=== PATIENT | male | born 1975 | race Caucasian/White ===

== ENCOUNTER 2016-09-13 21:20 | Inpatient (IN) | payer MEDICARE, MEDICAID ==
--- NOTE | 2016-09-13 22:00 | ED ---
General Adult HPI - General Chief complaint: Psychiatric Symptoms Stated complaint: psych eval Time Seen by Provider: 09/13/16 21:40 Source: patient, RN notes reviewed Mode of arrival: ambulatory Limitations: no limitations - History of Present Illness Initial comments: Patient is a pleasant 40-year-old male presenting to the emergency Department with depression and suicidal thoughts. Patient uses heroin and crack cocaine to harm himself. Patient has been doing this for years. Thoughts have worsened lately. Patient is thinking of injecting Lysol into his veins. Patient also regularly eats haenbane berries to harm himself. Last drug ingestion was around 5 hours ago. Patient admits to feeling anxious. Patient does have a history of self-harm and admission in the past. No homicidal thoughts. No hallucinations or delusions. No specific physical complaints. Rare alcohol use. - Related Data Home Medications Medication Instructions Recorded Confirmed Esomeprazole Magnesium [NexIUM 22.3 mg PO DAILY 09/13/16 09/13/16 24Hr] fluPHENAZine DECANOATE [Prolixin 50 mg IM TH 09/13/16 09/13/16 Decanoate] Allergies Allergy/AdvReac Type Severity Reaction Status Date / Time cat dander Allergy Itching Verified 09/13/16 22:05 Review of Systems ROS Statement: Those systems with pertinent positive or pertinent negative responses have been documented in the HPI. ROS Other: All systems not noted in ROS Statement are negative. Constitutional: Denies: fever Eyes: Denies: eye pain ENT: Denies: ear pain Respiratory: Denies: cough Cardiovascular: Denies: chest pain Gastrointestinal: Denies: abdominal pain Genitourinary: Denies: dysuria Musculoskeletal: Denies: back pain Skin: Denies: rash Psychiatric: Reports: anxiety, depression, suicidal thoughts. Denies: auditory hallucinations, visual hallucinations, homicidal thoughts Past Medical History Past Medical History: COPD, GERD/Reflux, Musculoskeletal Disorder Additional Past Medical History / Comment(s): scoliosis, herpes, hiatal hernia History of Any Multi-Drug Resistant Organisms: None Reported Past Surgical History: No Surgical Hx Reported Additional Past Surgical History / Comment(s): EGD about 10 years ago Past Anesthesia/Blood Transfusion Reactions: No Reported Reaction Past Psychological History: Anxiety, Bipolar, Depression, Schizoaffective Disorder Smoking Status: Current every day smoker Past Alcohol Use History: Occasional Past Drug Use History: Cocaine, Heroin, Marijuana - Past Family History Mother History Unknown: Yes Father History Unknown: Yes General Exam Limitations: no limitations General appearance: alert, in no apparent distress Head exam: Present: atraumatic Eye exam: Present: normal appearance, EOMI. Absent: nystagmus Neck exam: Present: normal inspection Respiratory exam: Present: normal lung sounds bilaterally Cardiovascular Exam: Present: regular rate, normal rhythm GI/Abdominal exam: Present: soft. Absent: tenderness Extremities exam: Present: normal inspection Neurological exam: Present: alert. Absent: motor sensory deficit Psychiatric exam: Present: depressed, suicidal ideation Skin exam: Absent: rash Course Vital Signs 09/13/16 21:32 Temperature 98.5 F Pulse Rate 109 H Respiratory 18 Rate Blood Pressure 118/77 O2 Sat by Pulse 97 Oximetry Medical Decision Making - Medical Decision Making Patient was seen by mental health services, who will admit. - Lab Data Lab Results 09/13/16 Range/Units 21:40 Urine Opiates Screen Detected H (NotDetected) Ur Oxycodone Screen Not Detected (NotDetected) Urine Methadone Screen Not Detected (NotDetected) Ur Propoxyphene Screen Not Detected (NotDetected) Ur Barbiturates Screen Not Detected (NotDetected) U Tricyclic Antidepress Not Detected (NotDetected) Ur Phencyclidine Scrn Not Detected (NotDetected) Ur Amphetamines Screen Not Detected (NotDetected) U Methamphetamines Scrn Not Detected (NotDetected) U Benzodiazepines Scrn Not Detected (NotDetected) Urine Cocaine Screen Detected H (NotDetected) U Marijuana (THC) Screen Detected H (NotDetected) Disposition Clinical Impression: Depression, Suicidal ideation Disposition: TRANSFER TO PSYCH HOSP/UNIT
[2016-09-14] MEDS ORDERED: FAMOTIDINE 20 MG TAB PO STA (00:11)
[2016-09-14] MEDS ORDERED: ZIPRASIDONE 20 MG VIAL IM PRN (00:23)
[2016-09-14] MEDS ORDERED: MAGNESIUM HYDROXIDE 2,400 MG/10 ML CUP PO PRN (00:23)
[2016-09-14 01:27] VITALS: BMI 22.4
[2016-09-14] MEDS ORDERED: WATER FOR INJECTION, STERILE 10 ML IV ONE (02:11)
[2016-09-14] MEDS: LORazepam 2 MG/ML SYRINGE IM PRN (08:31)
[2016-09-14] MEDS ORDERED: NICOTINE 14MG/24HR PATCH TRANSDERM SCH (09:00)
[2016-09-14] MEDS ORDERED: PANTOPRAZOLE 40 MG TABLET PO STA (09:57)
--- NOTE | 2016-09-14 10:07 | P.CONS ---
History of Present Illness - Reason for Consult Consult date: 09/14/16 Medical management Requesting physician: Itz Conway - Chief Complaint Depression and suicidal ideation - History of Present Illness This is a 40-year-old male with a known past medical history of schizophrenia, bipolar, anxiety, depression, COPD and GERD. Patient presents to the emergency department with complaints of depression and suicidal thoughts. He does report taking heroin and crack cocaine to harm himself. Patient has had a history of substance abuse for years. ER also reported that he had stated taking of injecting Lysol into his veins and eats haenbane berries to harm himself. Patient also reports having vomiting for a couple of days. Psych nurses have reported there's been no vomiting witnessed. Patient has had regular bowel movements no diarrhea. Denies any fevers chills or sweats. Denies any chest pain or shortness of breath. Denies any difficulty urinating. Patient has had previous psychiatric hospitalizations before. Consulted for medical management. Review of Systems Please refer to HPI otherwise unremarkable Past Medical History Past Medical History: COPD, GERD/Reflux, Musculoskeletal Disorder Additional Past Medical History / Comment(s): scoliosis, herpes, hiatal hernia History of Any Multi-Drug Resistant Organisms: None Reported Past Surgical History: No Surgical Hx Reported Additional Past Surgical History / Comment(s): EGD about 10 years ago Past Anesthesia/Blood Transfusion Reactions: No Reported Reaction Past Psychological History: Anxiety, Bipolar, Depression, Schizoaffective Disorder Smoking Status: Current every day smoker Past Alcohol Use History: Occasional Past Drug Use History: Cocaine, Heroin, Marijuana - Past Family History Mother History Unknown: Yes Father History Unknown: Yes Medications and Allergies Home Medications Medication Instructions Recorded Confirmed Type Esomeprazole Magnesium [NexIUM 22.3 mg PO DAILY 09/13/16 09/14/16 History 24Hr] fluPHENAZine DECANOATE [Prolixin 50 mg IM TH 09/13/16 09/14/16 History Decanoate] Allergies Allergy/AdvReac Type Severity Reaction Status Date / Time cat dander Allergy Itching Verified 09/14/16 00:53 Physical Exam Vitals: Vital Signs Temp Pulse Resp BP 09/14/16 07:12 98.2 F 70 16 118/74 09/14/16 01:09 98.2 F 88 16 118/77 Intake and Output 09/13/16 09/14/1609/14/17 22:59 06:59 14:59 Other: Weight 63.1 kg Head normocephalic Neck supple Lungs clear to auscultation bilaterally no wheezing or crackles Heart regular rate and rhythm S1-S2, no rub or gallop Abdomen is soft epigastric tenderness nondistended positive bowel sounds no hepatosplenomegaly Extremities no edema Neuro alert and orientated to 3 Psychiatric patient is disheveled. Answering questions appropriately. Makes poor eye contact. Assessment and Plan Plan: 1. Depression with suicidal ideation: Patient is been admitted to the psychiatric unit. Continue with psychiatric management and plan of care. Also will check a TSH and free T4 for any underlying thyroid disorder 2. Substance abuse: Patient does admit to using cocaine and heroin. Drug screen was positive for opiates, cocaine and marijuana 3. Nausea and vomiting possibly secondary to the substance abuse. We will add Protonix continue with Maalox as needed. Also will check amylase and lipase and LFTs. Patient did have some mild epigastric discomfort and this could be just related to his vomiting. 4. Nicotine dependence: We will switch nicotine patch to Nicorette gum per patient's request 5. History of COPD stable, no evidence of exacerbation 6. History of schizophrenia, bipolar, anxiety and depression Thank you for this consultation. We'll follow up on lab work. And then follow as needed. Please call if there are any questions or concerns. Time with Patient: Greater than 30 (Greater than 50% of the total time spent in counseling and coordination of care.I performed an examination of the patient and discussed their management with the physician Loaf Counter. I have reviewed the Physician Loaf Counter's notes and agree with the documented findings and plan of care)
[2016-09-14] MEDS: NICOTINE POLACRILEX 2 MG GUM BUCCAL PRN ×2 (10:15→12:41)
[2016-09-14] MEDS: DULoxetine HCL 30 MG CAPSULE.DR PO SCH (11:14)
[2016-09-14 11:25] LABS: Basophils # (A) 0.1 k/uL (0-0.2); Basophils % (A) 1 %; CH 27.3; CHCM 31.8; Eosinophils # (A) 0.6 k/uL (0-0.7); Eosinophils % (A) 7 %; HCT 49.9 % (39.0-53.0); HDW 2.37; HGB 15.3 gm/dL (13.0-17.5); Luc # (Auto) 0.19; Luc % (Auto) 2; Lymphocytes # (A) 2.4 k/uL (1.0-4.8); Lymphocytes % (A) 28 %; MCH 26.5 pg (25.0-35.0); MCHC 30.7 g/dL (31.0-37.0); MCV 86.2 fL (80.0-100.0); Mean Platelet Volume 7.1; Monocytes # (A) 0.7 k/uL (0-1.0); Monocytes % (A) 8 %; Neutrophils # (A) 4.6 k/uL (1.3-7.7); Neutrophils % (A) 54 %; RBC 5.79 m/uL (4.30-5.90); RDW 15.1 % (11.5-15.5); WBC 8.5 k/uL (3.8-10.6); WBC (Perox) 8.52
[2016-09-14 11:36] LABS: ALT 32 U/L (21-72); AST 23 U/L (17-59); Alkaline Phosphatase 61 U/L (38-126); Amylase 104 U/L (30-110); Anion Gap 10 mmol/L; Blood Urea Nitrogen 13 mg/dL (9-20); Carbon Dioxide 30 mmol/L (22-30); Chloride 103 mmol/L (98-107); Glucose 88 mg/dL (74-99); Non-African American GFR(MDRD) >60 (>60 ml/min/1.73 sqM); Potassium 4.9 mmol/L (3.5-5.1); Sodium 143 mmol/L (137-145); Total Bilirubin 0.5 mg/dL (0.2-1.3); Total Protein 7.5 g/dL (6.3-8.2)
[2016-09-14] MEDS ORDERED: fluPHENAZine DECANOATE 25 MG/ML 5ML MDV IM ONE (12:17)
[2016-09-14] MEDS: hydrOXYzine PAMOATE 25 MG CAP PO SCH ×3 (12:41→21:50)
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
[2016-09-15] MEDS: hydrOXYzine PAMOATE 25 MG CAP PO SCH ×4 (08:09→23:02)
[2016-09-15] MEDS: PANTOPRAZOLE 40 MG TABLET PO SCH (08:10)
[2016-09-15] MEDS: DULoxetine HCL 30 MG CAPSULE.DR PO SCH (08:10)
[2016-09-15 09:37] LABS: ALT 32 U/L (21-72); AST 20 U/L (17-59); Alkaline Phosphatase 58 U/L (38-126); Anion Gap 12 mmol/L; Blood Urea Nitrogen 19 mg/dL (9-20); Calcium 9.5 mg/dL (8.4-10.2); Carbon Dioxide 29 mmol/L (22-30); Chloride 101 mmol/L (98-107); Glucose 174 mg/dL (74-99); Non-African American GFR(MDRD) >60 (>60 ml/min/1.73 sqM); Potassium 4.7 mmol/L (3.5-5.1); Sodium 142 mmol/L (137-145); Total Bilirubin 0.4 mg/dL (0.2-1.3)
[2016-09-15 09:41] LABS: Basophils # (A) 0.1 k/uL (0-0.2); Basophils % (A) 1 %; CH 27.2; CHCM 31.7; Eosinophils # (A) 0.7 k/uL (0-0.7); Eosinophils % (A) 9 %; HCT 48.9 % (39.0-53.0); HDW 2.33; HGB 15.2 gm/dL (13.0-17.5); Luc # (Auto) 0.21; Luc % (Auto) 3; Lymphocytes % (A) 26 %; MCH 26.8 pg (25.0-35.0); MCHC 31.2 g/dL (31.0-37.0); MCV 85.9 fL (80.0-100.0); Mean Platelet Volume 6.3; Monocytes # (A) 0.3 k/uL (0-1.0); Monocytes % (A) 4 %; Neutrophils # (A) 4.3 k/uL (1.3-7.7); Neutrophils % (A) 57 %; RBC 5.69 m/uL (4.30-5.90); WBC 7.7 k/uL (3.8-10.6); WBC (Perox) 7.66
--- NOTE | 2016-09-15 12:08 | P.PN ---
Progress Note - Text Interval history: The patient is found in his room he follows me to an interview room. He is being seen today in coverage for Dr. Estevez. The patient was admitted just yesterday for symptoms of depression with suicidal ideation. He has a previous diagnosis of schizoaffective disorder treated with Prolixin decanoate. He was started on Cymbalta 30 mg daily and Vistaril for anxiety symptoms. He reports feeling tired and isolating his room so far today. He feels that he is adjusting to the new medication. He continues to have suicidal thoughts he describes no clear precipitant for those thoughts. He has no questions or concerns regarding his medication although he feels the Vistaril may make him feel tired. His drug screen was positive for opiates, cocaine, marijuana. Mental status exam: The patient is a thin male he is dressed in hospital gowns. He has a disheveled appearance. Eye contact is intermittent. He is cooperative and is directable. He has visible tattoos on his left upper extremity. He describes a depressed mood with hopelessness feelings and ongoing suicidal ideation. Speech is mainly responsive to questions asked and is not spontaneous. Thought process is linear as he only provides brief answers. He demonstrates no verbal or physical aggressiveness. Insight and judgment limited. He is oriented to person place and date. He maintains a blunted affect throughout the session. Plan: The patient will continue on his current medication. He recently received his Prolixin Decanoate injection. He is been started on Cymbalta and Vistaril is being used to alleviate anxiety symptoms. He is encouraged to participate in the milieu we will monitor him for safety. Vital signs reviewed.
[2016-09-15] MEDS: LORazepam 2 MG/ML SYRINGE IM PRN (12:19)
[2016-09-15] MEDS: NICOTINE POLACRILEX 2 MG GUM BUCCAL PRN ×3 (12:36→19:27)
[2016-09-15 17:21] LABS: Amorphous Sediment,Urine Moderate /hpf; Appearance,Urine Turbid (Clear); Bilirubin,Urine Negative (Negative); Glucose,Urine (UA) Negative (Negative); Ketones,Urine Negative (Negative); Leukocyte Esterase,Urine Negative (Negative); Nitrite,Urine Negative (Negative); Particle Count 9464; Protein,Urine Trace (Negative); Specific Gravity,Urine 1.016 (1.001-1.035); Squamous Epithelial Cell,Urine 1 /hpf (0-4); UA Billing (MACRO vs. MICRO) MICRO; Urobilinogen,Urine <2.0 mg/dL (<2.0); WBC,Urine 5 /hpf (0-5)
[2016-09-15] MEDS: LORazepam 1 MG TAB PO PRN (18:33)
[2016-09-16] MEDS: NICOTINE POLACRILEX 2 MG GUM BUCCAL PRN ×5 (08:48→20:58)
[2016-09-16] MEDS: DULoxetine HCL 30 MG CAPSULE.DR PO SCH (08:48)
[2016-09-16] MEDS: LORazepam 1 MG TAB PO PRN (08:48)
[2016-09-16] MEDS: PANTOPRAZOLE 40 MG TABLET PO SCH (08:48)
[2016-09-16] MEDS: hydrOXYzine PAMOATE 25 MG CAP PO SCH ×4 (08:48→20:57)
--- NOTE | 2016-09-16 12:46 | P.PN ---
Progress Note - Text Interval history: The patient is found in the hallway he follows me to an interview room. He reports he continues to feel depressed but feels safe here in the hospital. He has some hopelessness thinking and he feels acutely anxious. He feels that the Vistaril makes him tired and we discussed utilizing Neurontin which she has been on before which alleviated some of his anxiety symptoms. He asked to have a hepatitis and HIV test ordered. He is beginning to participate in groups. He did shower today he participated in meals. He has no questions or concerns regarding the Cymbalta. Mental status exam: The patient is a thin male appearing his stated age. He did shower but still has some followed body odor but this is markedly improved from earlier in the day. Eye contact appropriate he is cooperative and pleasant. He is restless and shakes as he is seated in the chair throughout the interview. He reports some hopelessness thinking and passive suicidal thoughts no homicidal ideation intent or plan. He is endorsing no auditory or visual hallucinations no specific delusions. Insight and judgment limited. He demonstrates no verbal or physical aggressiveness. Plan: The patient will continue on his current psychotropic medications we will add Neurontin 200 mg 3 times daily. We will order an HIV and hepatitis panel as he had recent potential exposure with IV heroin use. We will monitor him for safety and encourage his participation in his ADLs and in group. Dr. Estevez will resume his care starting tomorrow.
[2016-09-16] MEDS: LORazepam 2 MG/ML SYRINGE IM PRN ×2 (13:57→19:51)
[2016-09-16] MEDS: GABAPENTIN 100 MG CAP PO SCH ×2 (15:51→20:57)
[2016-09-16] MEDS: ACETAMINOPHEN TAB 325 MG TAB PO PRN (15:53)
[2016-09-17] MEDS: GABAPENTIN 100 MG CAP PO SCH (08:31)
[2016-09-17] MEDS: DULoxetine HCL 30 MG CAPSULE.DR PO SCH (08:31)
[2016-09-17] MEDS: hydrOXYzine PAMOATE 25 MG CAP PO SCH ×2 (08:31→12:56)
[2016-09-17] MEDS: PANTOPRAZOLE 40 MG TABLET PO SCH (08:31)
[2016-09-17] MEDS: NICOTINE POLACRILEX 2 MG GUM BUCCAL PRN ×6 (08:32→22:09)
[2016-09-17 09:28] LABS: Hepatitis B Surface Ag Index 0.08
[2016-09-17 09:34] LABS: Hepatitis B Core IgM Index 0.05
[2016-09-17 09:46] LABS: Hepatitis C Virus IgG Ab Negative (Negative); Hepatitis C Virus IgG Index 0.01
[2016-09-17] MEDS: LORazepam 1 MG TAB PO PRN ×2 (12:57→15:38)
--- NOTE | 2016-09-17 15:17 | P.PN ---
Progress Note - Text Progress note: ": Can have higher dose of Ativan",patient complained of feeling nervous and requesting more when necessary of Ativan, he denied any psychotic feature he denied feeling depressed or hopeless,denies any suicidal ideation but again he just focusing about benzodiazepine He reports said "Vistaril Making me tired but doesn't help anxiety ", patient denied any sleep problem he reported that his appetite has been improving since he is off heroin. He started to participate in group therapy and he has been able to take care of his basic hygiene for his last 2-3 days. Nursing staff: Patient slept 6 hours last night, appetite is slightly improved, has been interacting with other patient, denied any suicidal or homicidal ideation, no self harm behavior or impulsivity, has been requesting PRN Ativan despite being on Neurontin 200 mg three times daily. Mental status examination the patient is cooperative, grooming and hygiene much better than at the time of admission, good eye contact, he is very restless and as he seated in his chair, he denied any suicidal or homicidal ideation or plan he denied any hallucination or delusion, his insight and judgment are limited especially regarding his addiction Assessment patient denied any suicidal ideation, his overall clinical status appears better from admission AIMS: +Hands and legs shakes Plan : Continue patient on Cymbalta, I would increase Neurontin to 200 mg 4 times daily, decrease Vistaril. To 3 times a day, with set boundaries on his drug seeking behavior as I discussed with him cross addiction patient will continue to participate in group therapy and most likely he would be discharged Tomorrow TO ACT and SA intake assessment
[2016-09-17] MEDS: GABAPENTIN 300 MG CAP PO SCH ×2 (16:19→21:13)
[2016-09-17] MEDS: ACETAMINOPHEN TAB 325 MG TAB PO PRN (16:19)
[2016-09-17] MEDS: hydrOXYzine PAMOATE 25 MG CAP PO PRN ×2 (17:11→23:15)
[2016-09-17] MEDS ORDERED: ZIPRASIDONE 20 MG VIAL IM PRN (18:15)
[2016-09-17] MEDS: MAG HYDROX/AL HYDROX/SIMETH 30 ML CUP PO PRN (20:04)
[2016-09-18] MEDS: NICOTINE POLACRILEX 2 MG GUM BUCCAL PRN ×4 (00:05→10:29)
[2016-09-18 01:15] VITALS: BP 120/79; PULSE 104; RESP 16; TEMP 97.6
[2016-09-18] MEDS: LORazepam 1 MG TAB PO PRN (03:04)
[2016-09-18] MEDS: PANTOPRAZOLE 40 MG TABLET PO SCH (08:31)
[2016-09-18] MEDS: DULoxetine HCL 30 MG CAPSULE.DR PO SCH (08:31)
[2016-09-18] MEDS: GABAPENTIN 300 MG CAP PO SCH (08:31)
[2016-09-18] MEDS: MAG HYDROX/AL HYDROX/SIMETH 30 ML CUP PO PRN (10:09)
--- NOTE | 2016-09-18 11:02 | DS ---
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 Ericka Wang. CONSULT REASON: For medical history and physical examination. DO YOU WANT CONSULTING PROVIDER NOTIFIED: Yes. PRIMARY CARE PHYSICIAN: Dr. Frandy Bolaños. REASON FOR ADMISSION: Depression with suicidal ideation. HOSPITAL COURSE: The patient was admitted to the mental health unit on voluntary basis. He presented to the emergency room complaining of having severe depression, anxiety and suicidal ideation with specific plan. Patient admitted to using heroin, cocaine and marijuana in the past 24 hours prior to his admission. On the admission, his urine drug screen was positive for opiate, cocaine and marijuana. Patient has been seen at [facility] and he is involved with the ACT team. His home medication was Prolixin Decanoate 50 mg IM once a week and he was given the next dose here during hospitalization on September 14, 2016. He denied having any psychotic feature, however, he was drug seeking benzodiazepine. I did cut benzodiazepine and he was give Vistaril p.r.n. However, he started to complain about having bad anxiety, severe shakes and he said, "Vistaril just making me tired". So Dr. Conway did start the patient on Neurontin and I increased the dose to 300 mg 3 times a day and patient was able to tolerate this. Patient initially was isolating himself in his room, but later on he did start to participate in group therapy and he became more pleasant and cooperative. He did not exhibit any aggression towards himself or others. I did discuss with the team to set boundary on his drug seeking behavior. He was advised to not using any drug and to be compliant with his medication and follow-up appointment. The patient did request to have hepatitis and HIV as he did admit that he did share needle during his last IV heroin use. Hepatitis panel was negative, however, HIV result was still pending at the time of this dictation. His vital signs have been stable. MENTAL STATUS EXAMINATION AT THE TIME OF DISCHARGE: Patient is alert, oriented, more pleasant and more cooperative. He has good eye contact, has normal speech, normal gait. His mood is improved. He has no suicidal or homicidal ideation. He denied any hallucination or delusion. He still has some shakes, but most probably it is from the Prolixin Decanoate. He appeared to have better insight and judgement. DISCHARGE DIAGNOSES: 1. Schizoaffective disorder, depressed type in partial remission. 2. Polysubstance abuse and dependence, cocaine, heroin and cannabis. PLAN: 1. Patient was given prescription for: Cymbalta 30 mg daily as I did start him on it for depression and his chronic back pain. He was given 1 month supply. He was given 1 month supply for Neurontin or gabapentin 300 mg 3 times a day for anxiety and also chronic pain. He was given ( ) capsule of Vistaril 25 mg to take it as needed for anxiety or extrapyramidal symptoms. Patient to continued Prolixin Decanoate 50 mg IM once a week. His next injection is due on September 21, 2016. 2. Patient has to contact substance abuse initial intake and evaluation. 3. Patient to continue treatment at the [facility] and he was discharged to the ACT team. The patient's condition at the time of discharge is stable and he does not have any access to firearms.
[2016-09-20 03:59] LABS: HIV-1/HIV-2 Ab Screen NONREAC (NON REAC)
== END 2016-09-18 12:19 | disposition home or self-care (01) | DRG 885 ==
LOC: EC 21:20 → 3MHU 09-14 00:17
PROVIDERS: ADMIT Psychiatry & Neurology Psychiatry; ATTEND Psychiatry & Neurology Psychiatry
DX: F25.1 Schizoaffective disorder, depressive type (principal); R45.851 Suicidal ideations; F14.10 Cocaine abuse, uncomplicated; M41.9 Scoliosis, unspecified; F17.200 Nicotine dependence, unspecified, uncomplicated; G89.29 Other chronic pain; J44.9 Chronic obstructive pulmonary disease, unspecified; K21.9 Gastro-esophageal reflux disease without esophagitis; K44.9 Diaphragmatic hernia without obstruction or gangrene; M54.9 Dorsalgia, unspecified; F41.9 Anxiety disorder, unspecified; F12.10 Cannabis abuse, uncomplicated; F11.10 Opioid abuse, uncomplicated; R10.9 Unspecified abdominal pain; R11.2 Nausea with vomiting, unspecified; Z76.5 Malingerer [conscious simulation]; Z79.899 Other long term (current) drug therapy
CPT/HCPCS: 80053; 80074; 80306; 81001; 82075; 82150; 83690; 84439; 84443; 85025; 87389; 99285

== ENCOUNTER 2017-02-10 21:01 | Emergency (ER) | payer MEDICAID, MEDICARE ==
--- NOTE | 2017-02-10 21:25 | ED ---
Psych HPI - General Source: patient, RN notes reviewed Mode of arrival: ambulatory Limitations: no limitations <Shilo Kay - Last Filed: 02/10/17 23:56> <Fidencio Louis - Last Filed: 02/11/17 00:50> - General Stated Complaint: Mental Health Time Seen by Provider: 02/10/17 21:11 - History of Present Illness Initial Comments: 41-year-old male presents emergency Department chief complaint of depression, suicidal thoughts. Patient states that this is ongoing issue. Patient also abuses cocaine. Patient denies any alcohol abuse. Patient states he also uses marijuana. Patient states he has thoughts of hurting other people but no exact homicidal plan or thoughts. Patient denies any physical complaints. Patient offers no complaints. (Shilo Kay) - Related Data Home Medications Medication Instructions Recorded Confirmed fluPHENAZine DECANOATE [Prolixin 50 mg IM TH 09/13/16 02/10/17 Decanoate] DULoxetine HCL [Cymbalta] 60 mg PO DAILY 02/10/17 02/10/17 Trihexyphenidyl HCl 5 mg PO BID 02/10/17 02/10/17 Previous Rx's Medication Instructions Recorded Gabapentin [Neurontin] 300 mg PO TID 30 Days 09/18/16 Allergies Allergy/AdvReac Type Severity Reaction Status Date / Time cat dander Allergy Itching Verified 02/10/17 21:21 Review of Systems ROS Other: All systems not noted in ROS Statement are negative. <Shilo Kay - Last Filed: 02/10/17 23:56> ROS Other: All systems not noted in ROS Statement are negative. <Fidencio Louis - Last Filed: 02/11/17 00:50> ROS Statement: Those systems with pertinent positive or pertinent negative responses have been documented in the HPI. Past Medical History Past Medical History: COPD, GERD/Reflux, Musculoskeletal Disorder Additional Past Medical History / Comment(s): scoliosis, herpes, hiatal hernia History of Any Multi-Drug Resistant Organisms: None Reported Past Surgical History: No Surgical Hx Reported Additional Past Surgical History / Comment(s): EGD about 10 years ago Past Anesthesia/Blood Transfusion Reactions: No Reported Reaction Past Psychological History: Anxiety, Bipolar, Depression, Schizoaffective Disorder Smoking Status: Current every day smoker Past Alcohol Use History: Occasional Past Drug Use History: Cocaine, Heroin, Marijuana - Past Family History Mother History Unknown: Yes Father History Unknown: Yes <Shilo Kay - Last Filed: 02/10/17 23:56> General Exam Limitations: no limitations General appearance: alert, in no apparent distress Head exam: Present: atraumatic, normocephalic, normal inspection Eye exam: Present: normal appearance, PERRL, EOMI. Absent: scleral icterus, conjunctival injection, periorbital swelling ENT exam: Present: normal exam, normal oropharynx, mucous membranes moist, TM's normal bilaterally Neck exam: Present: normal inspection, full ROM. Absent: tenderness, meningismus, lymphadenopathy Respiratory exam: Present: normal lung sounds bilaterally. Absent: respiratory distress, wheezes, rales, rhonchi, stridor Cardiovascular Exam: Present: regular rate, normal rhythm, normal heart sounds. Absent: systolic murmur, diastolic murmur, rubs, gallop, clicks Psychiatric exam: Present: depressed Skin exam: Present: warm, dry, intact, normal color. Absent: rash <Shilo Kay - Last Filed: 02/10/17 23:56> Medical Decision Making <Shilo Kay - Last Filed: 02/10/17 23:56> - Lab Data Result diagrams: 02/11/17 00:03 02/11/17 00:03 <Fidencio Louis - Last Filed: 02/11/17 00:50> - Medical Decision Making Patient is medically cleared for transfer (Shilo Kay) medical decision-making. This is a 39-year-old male with polysubstance abuse in the past history of depression and schizophrenia bipolar disorder. The patient states he wants to stop doing illegal drugs but has difficulty. States he will commit suicide by overdosing on street drugs. I have completed a certificate for admission for further evaluation and treatment. Dr. Louis ( Fidencio Louis) - Lab Data Lab Results 02/10/17 02/10/17 02/11/17 Range/Units 21:30 21:30 00:03 WBC 11.0 H (3.8-10.6) k/uL RBC 4.54 (4.30-5.90) m/uL Hgb 13.4 (13.0-17.5) gm/dL Hct 41.3 (39.0-53.0) % MCV 90.9 (80.0-100.0) fL MCH 29.5 (25.0-35.0) pg MCHC 32.4 (31.0-37.0) g/dL RDW 14.1 (11.5-15.5) % Plt Count 222 (150-450) k/uL Neutrophils % 65 % Lymphocytes % 21 % Monocytes % 6 % Eosinophils % 6 % Basophils % 1 % Neutrophils # 7.1 (1.3-7.7) k/uL Lymphocytes # 2.3 (1.0-4.8) k/uL Monocytes # 0.7 (0-1.0) k/uL Eosinophils # 0.6 (0-0.7) k/uL Basophils # 0.1 (0-0.2) k/uL Sodium (137-145) mmol/L Potassium (3.5-5.1) mmol/L Chloride (98-107) mmol/L Carbon Dioxide (22-30) mmol/L Anion Gap mmol/L BUN (9-20) mg/dL Creatinine (0.66-1.25) mg/dL Est GFR (MDRD) Af Amer (>60 ml/min/1.73 sqM) Est GFR (MDRD) Non-Af (>60 ml/min/1.73 sqM) Glucose (74-99) mg/dL Calcium (8.4-10.2) mg/dL Total Bilirubin (0.2-1.3) mg/dL AST (17-59) U/L ALT (21-72) U/L Alkaline Phosphatase (38-126) U/L Total Protein (6.3-8.2) g/dL Albumin (3.5-5.0) g/dL Urine Color Light Red Urine Appearance Clear (Clear) Urine pH 5.5 (5.0-8.0) Ur Specific [place] 1.020 (1.001-1.035) Urine Protein Negative (Negative) Urine Glucose (UA) Negative (Negative) Urine Ketones Trace H (Negative) Urine Blood Negative (Negative) Urine Nitrite Negative (Negative) Urine Bilirubin Negative (Negative) Urine Urobilinogen <2.0 (<2.0) mg/dL Ur Leukocyte Esterase Negative (Negative) Urine RBC 5 (0-5) /hpf Urine WBC 2 (0-5) /hpf Ur Squamous Epith Cells 1 (0-4) /hpf Urine Mucus Moderate H (None) /hpf Urine Opiates Screen Not Detected (NotDetected) Ur Oxycodone Screen Not Detected (NotDetected) Urine Methadone Screen Not Detected (NotDetected) Ur Propoxyphene Screen Not Detected (NotDetected) Ur Barbiturates Screen Not Detected (NotDetected) U Tricyclic Antidepress Not Detected (NotDetected) Ur Phencyclidine Scrn Not Detected (NotDetected) Ur Amphetamines Screen Detected H (NotDetected) U Methamphetamines Scrn Detected H (NotDetected) U Benzodiazepines Scrn Detected H (NotDetected) Urine Cocaine Screen Detected H (NotDetected) U Marijuana (THC) Screen Detected H (NotDetected) 02/11/17 Range/Units 00:03 WBC (3.8-10.6) k/uL RBC (4.30-5.90) m/uL Hgb (13.0-17.5) gm/dL Hct (39.0-53.0) % MCV (80.0-100.0) fL MCH (25.0-35.0) pg MCHC (31.0-37.0) g/dL RDW (11.5-15.5) % Plt Count (150-450) k/uL Neutrophils % % Lymphocytes % % Monocytes % % Eosinophils % % Basophils % % Neutrophils # (1.3-7.7) k/uL Lymphocytes # (1.0-4.8) k/uL Monocytes # (0-1.0) k/uL Eosinophils # (0-0.7) k/uL Basophils # (0-0.2) k/uL Sodium 140 (137-145) mmol/L Potassium 3.8 (3.5-5.1) mmol/L Chloride 106 (98-107) mmol/L Carbon Dioxide 24 (22-30) mmol/L Anion Gap 10 mmol/L BUN 13 (9-20) mg/dL Creatinine 1.00 (0.66-1.25) mg/dL Est GFR (MDRD) Af Amer >60 (>60 ml/min/1.73 sqM) Est GFR (MDRD) Non-Af >60 (>60 ml/min/1.73 sqM) Glucose 92 (74-99) mg/dL Calcium 8.8 (8.4-10.2) mg/dL Total Bilirubin 0.3 (0.2-1.3) mg/dL AST 27 (17-59) U/L ALT 49 (21-72) U/L Alkaline Phosphatase 52 (38-126) U/L Total Protein 6.1 L (6.3-8.2) g/dL Albumin 3.5 (3.5-5.0) g/dL Urine Color Urine Appearance (Clear) Urine pH (5.0-8.0) Ur Specific [place] (1.001-1.035) Urine Protein (Negative) Urine Glucose (UA) (Negative) Urine Ketones (Negative) Urine Blood (Negative) Urine Nitrite (Negative) Urine Bilirubin (Negative) Urine Urobilinogen (<2.0) mg/dL Ur Leukocyte Esterase (Negative) Urine RBC (0-5) /hpf Urine WBC (0-5) /hpf Ur Squamous Epith Cells (0-4) /hpf Urine Mucus (None) /hpf Urine Opiates Screen (NotDetected) Ur Oxycodone Screen (NotDetected) Urine Methadone Screen (NotDetected) Ur Propoxyphene Screen (NotDetected) Ur Barbiturates Screen (NotDetected) U Tricyclic Antidepress (NotDetected) Ur Phencyclidine Scrn (NotDetected) Ur Amphetamines Screen (NotDetected) U Methamphetamines Scrn (NotDetected) U Benzodiazepines Scrn (NotDetected) Urine Cocaine Screen (NotDetected) U Marijuana (THC) Screen (NotDetected) Disposition <Shilo Kay - Last Filed: 02/10/17 23:56> <Fidencio Louis - Last Filed: 02/11/17 00:50> Clinical Impression: Bipolar disorder, Depression, Polysubstance abuse Disposition: TRANSFER TO PSYCH HOSP/UNIT Condition: Stable Referrals: Frandy Bolaños MD [Primary Care Provider] - 1-2 days
[2017-02-11 00:13] LABS: Basophils # (A) 0.1 k/uL (0-0.2); Basophils % (A) 1 %; CHCM 33.2; Eosinophils # (A) 0.6 k/uL (0-0.7); Eosinophils % (A) 6 %; HCT 41.3 % (39.0-53.0); HDW 2.24; HGB 13.4 gm/dL (13.0-17.5); Luc # (Auto) 0.24; Luc % (Auto) 2; Lymphocytes # (A) 2.3 k/uL (1.0-4.8); Lymphocytes % (A) 21 %; MCH 29.5 pg (25.0-35.0); MCHC 32.4 g/dL (31.0-37.0); MCV 90.9 fL (80.0-100.0); Mean Platelet Volume 6.5; Monocytes # (A) 0.7 k/uL (0-1.0); Monocytes % (A) 6 %; Neutrophils # (A) 7.1 k/uL (1.3-7.7); Neutrophils % (A) 65 %; RBC 4.54 m/uL (4.30-5.90); RDW 14.1 % (11.5-15.5); WBC (Perox) 11.19
[2017-02-11 00:19] LABS: Mucus,Urine Moderate /hpf; Particle Count 4889; RBC,Urine 5 /hpf (0-5); Squamous Epithelial Cell,Urine 1 /hpf (0-4); WBC,Urine 2 /hpf (0-5)
[2017-02-11 00:21] LABS: ALT 49 U/L (21-72); AST 27 U/L (17-59); Alkaline Phosphatase 52 U/L (38-126); Anion Gap 10 mmol/L; Blood Urea Nitrogen 13 mg/dL (9-20); Calcium 8.8 mg/dL (8.4-10.2); Carbon Dioxide 24 mmol/L (22-30); Chloride 106 mmol/L (98-107); Glucose 92 mg/dL (74-99); Non-African American GFR(MDRD) >60 (>60 ml/min/1.73 sqM); Potassium 3.8 mmol/L (3.5-5.1); Sodium 140 mmol/L (137-145); Total Bilirubin 0.3 mg/dL (0.2-1.3); Total Protein 6.1 g/dL (6.3-8.2)
[2017-02-11 00:24] LABS: Appearance,Urine Clear (Clear); Bilirubin,Urine Negative (Negative); Glucose,Urine (UA) Negative (Negative); Ketones,Urine Trace (Negative); Leukocyte Esterase,Urine Negative (Negative); Nitrite,Urine Negative (Negative); PH, Urine 5.5 (5.0-8.0); Protein,Urine Negative (Negative); UA Billing (MACRO vs. MICRO) CHEM; Urobilinogen,Urine <2.0 mg/dL (<2.0)
[2017-02-11 09:50] VITALS: BP 131/86; PULSE 81; RESP 16; TEMP 97.7
== END 2017-02-11 09:46 ==
LOC: EC 21:01
DX: F25.0 Schizoaffective disorder, bipolar type (principal); F14.19 Cocaine abuse with unspecified cocaine-induced disorder; F12.10 Cannabis abuse, uncomplicated; F41.9 Anxiety disorder, unspecified; F17.200 Nicotine dependence, unspecified, uncomplicated; Z91.09 Other allergy status, other than to drugs and biological substances; Z79.899 Other long term (current) drug therapy
CPT/HCPCS: 36415; 80053; 80306; 81003; 85025; 99285

== ENCOUNTER 2017-04-02 08:34 | Observation (INO) | payer MEDICARE, OTHER ==
[2017-04-02] MEDS ORDERED: SODIUM CHLORIDE 0.9% 1,000 ML IV STA (08:50)
--- NOTE | 2017-04-02 09:05 | ED ---
General Adult HPI - General Chief complaint: Seizure Stated complaint: Seizure Time Seen by Provider: 04/02/17 08:44 Source: EMS, RN notes reviewed Mode of arrival: EMS Limitations: no limitations - History of Present Illness Initial comments: Patient's a 41-year-old male presented to the emergency room today by EMS with chief complaint of possible seizure that occurred just prior to arrival. Patient does admit to a history of seizures. States not had one in quite a long time. He states he's never on medication for it. He states he had seizures after he would smoke marijuana. He does admit that he recently got out of drug rehab just yesterday. States he was in there for cocaine use. He states he has used marijuana today but denies any other street drugs. States he was sitting down with some friends today when this "seizure" occurred. States he believes it lasted a few seconds to minutes. He believes that when he came to he was slightly confused but only for a few seconds and then he states he knew where he was. Patient at this time denies any complaints. Patient denies any recent fever, chills, shortness of breath, chest pain, back pain, abdominal pain, nausea or vomiting, numbness or tingling, dysuria or hematuria, constipation or diarrhea, headaches or visual changes, or any other complaints. - Related Data Home Medications Medication Instructions Recorded Confirmed fluPHENAZine DECANOATE [Prolixin 50 mg IM TH 09/13/16 04/02/17 Decanoate] DULoxetine HCL [Cymbalta] 60 mg PO DAILY 02/10/17 04/02/17 Trihexyphenidyl HCl 5 mg PO BID 02/10/17 04/02/17 Gabapentin [Neurontin] 600 mg PO TID 04/02/17 04/02/17 Allergies Allergy/AdvReac Type Severity Reaction Status Date / Time cat dander Allergy Itching Verified 04/02/17 09:34 Review of Systems ROS Statement: Those systems with pertinent positive or pertinent negative responses have been documented in the HPI. ROS Other: All systems not noted in ROS Statement are negative. Past Medical History Past Medical History: COPD, GERD/Reflux, Musculoskeletal Disorder, Seizure Disorder Additional Past Medical History / Comment(s): scoliosis, herpes, hiatal hernia History of Any Multi-Drug Resistant Organisms: None Reported Past Surgical History: No Surgical Hx Reported Additional Past Surgical History / Comment(s): EGD about 10 years ago Past Anesthesia/Blood Transfusion Reactions: No Reported Reaction Past Psychological History: Anxiety, Bipolar, Depression, Schizoaffective Disorder Smoking Status: Current every day smoker Past Alcohol Use History: Occasional Past Drug Use History: Cocaine, Heroin, IV Drug Use, Marijuana, Methamphetamine - Past Family History Mother History Unknown: Yes Father History Unknown: Yes General Exam - General Exam Comments Initial Comments: General: The patient is awake and alert, in no distress, and does not appear acutely ill. Eye: Pupils are equal, round and reactive to light, extra-ocular movements are intact. No nystagmus. There is normal conjunctiva bilaterally. No signs of icterus. Ears, nose, mouth and throat: There are moist mucous membranes and no oral lesions. Neck: The neck is supple, there is no tenderness or JVD. Cardiovascular: There is a regular rate and rhythm. No murmur, rub or gallop is appreciated. Respiratory: Lungs are clear to auscultation, respirations are non-labored, breath sounds are equal. No wheezes, stridor, rales, or rhonchi. Gastrointestinal: Soft, non-distended, non-tender abdomen without masses or organomegaly noted. There is no rebound or guarding present. No CVA tenderness. Bowel sounds are unremarkable. Musculoskeletal: Normal ROM, no tenderness. Strength 5/5. Sensation intact. Pulses equal bilaterally 2+. Neurological: A&O x 3. CN II-XII intact, There are no obvious motor or sensory deficits. Coordination appears grossly intact. Speech is normal. Skin: Skin is warm and dry and no rashes or lesions are noted. Psychiatric: Cooperative, appropriate mood & affect, normal judgment. Limitations: no limitations Course Vital Signs 04/02/17 04/02/17 08:39 09:40 Temperature 97.1 F L Pulse Rate 77 75 Respiratory 18 18 Rate Blood Pressure 108/61 108/59 O2 Sat by Pulse 99 91 L Oximetry Medical Decision Making - Medical Decision Making Patient reexamined at this time shows no signs of distress. Case was discussed with attending physician , who did discuss case with admitting physician will admit the patient for his seizure have consult from neurology. - Lab Data Result diagrams: 04/02/17 08:54 04/02/17 08:54 Lab Results 04/02/17 04/02/17 04/02/17 Range/Units 08:54 08:54 09:24 WBC 10.1 (3.8-10.6) k/uL RBC 4.25 L (4.30-5.90) m/uL Hgb 12.6 L (13.0-17.5) gm/dL Hct 38.4 L (39.0-53.0) % MCV 90.4 (80.0-100.0) fL MCH 29.6 (25.0-35.0) pg MCHC 32.7 (31.0-37.0) g/dL RDW 14.7 (11.5-15.5) % Plt Count 228 (150-450) k/uL Neutrophils % 71 % Lymphocytes % 17 % Monocytes % 6 % Eosinophils % 3 % Basophils % 1 % Neutrophils # 7.2 (1.3-7.7) k/uL Lymphocytes # 1.7 (1.0-4.8) k/uL Monocytes # 0.6 (0-1.0) k/uL Eosinophils # 0.3 (0-0.7) k/uL Basophils # 0.1 (0-0.2) k/uL Sodium 140 (137-145) mmol/L Potassium 4.4 (3.5-5.1) mmol/L Chloride 108 H (98-107) mmol/L Carbon Dioxide 23 (22-30) mmol/L Anion Gap 9 mmol/L BUN 19 (9-20) mg/dL Creatinine 0.96 (0.66-1.25) mg/dL Est GFR (MDRD) Af Amer >60 (>60 ml/min/1.73 sqM) Est GFR (MDRD) Non-Af >60 (>60 ml/min/1.73 sqM) Glucose 71 L (74-99) mg/dL Calcium 8.7 (8.4-10.2) mg/dL Total Bilirubin 0.3 (0.2-1.3) mg/dL AST 21 (17-59) U/L ALT 33 (21-72) U/L Alkaline Phosphatase 56 (38-126) U/L Total Protein 6.3 (6.3-8.2) g/dL Albumin 3.9 (3.5-5.0) g/dL Urine Color Yellow Urine Appearance Clear (Clear) Urine pH 7.0 (5.0-8.0) Ur Specific [place] 1.013 (1.001-1.035) Urine Protein Negative (Negative) Urine Glucose (UA) Negative (Negative) Urine Ketones 1+ H (Negative) Urine Blood Negative (Negative) Urine Nitrite Negative (Negative) Urine Bilirubin Negative (Negative) Urine Urobilinogen <2.0 (<2.0) mg/dL Ur Leukocyte Esterase Trace H (Negative) Urine WBC 1 (0-5) /hpf Ur Squamous Epith Cells <1 (0-4) /hpf Hyaline Casts 1 (0-2) /lpf Granular Casts 3 (0) /lpf Urine Mucus Rare H (None) /hpf Urine Opiates Screen Not Detected (NotDetected) Ur Oxycodone Screen Not Detected (NotDetected) Urine Methadone Screen Not Detected (NotDetected) Ur Propoxyphene Screen Not Detected (NotDetected) Ur Barbiturates Screen Not Detected (NotDetected) U Tricyclic Antidepress Not Detected (NotDetected) Ur Phencyclidine Scrn Not Detected (NotDetected) Ur Amphetamines Screen Not Detected (NotDetected) U Methamphetamines Scrn Not Detected (NotDetected) U Benzodiazepines Scrn Not Detected (NotDetected) Urine Cocaine Screen Not Detected (NotDetected) U Marijuana (THC) Screen Detected H (NotDetected) Disposition Clinical Impression: Seizure Disposition: ADMITTED IP TO THIS [facility] Referrals: Frandy Bolaños MD [Primary Care Provider] - 1-2 days Time of Disposition: 10:15
[2017-04-02 09:11] LABS: Basophils # (A) 0.1 k/uL (0-0.2); Basophils % (A) 1 %; CH 30.2; CHCM 33.6; Eosinophils # (A) 0.3 k/uL (0-0.7); Eosinophils % (A) 3 %; HCT 38.4 % (39.0-53.0); HDW 2.23; HGB 12.6 gm/dL (13.0-17.5); Luc # (Auto) 0.15; Luc % (Auto) 2; Lymphocytes # (A) 1.7 k/uL (1.0-4.8); Lymphocytes % (A) 17 %; MCH 29.6 pg (25.0-35.0); MCHC 32.7 g/dL (31.0-37.0); MCV 90.4 fL (80.0-100.0); Monocytes # (A) 0.6 k/uL (0-1.0); Monocytes % (A) 6 %; Neutrophils # (A) 7.2 k/uL (1.3-7.7); Neutrophils % (A) 71 %; RBC 4.25 m/uL (4.30-5.90); RDW 14.7 % (11.5-15.5); WBC 10.1 k/uL (3.8-10.6); WBC (Perox) 11.07
[2017-04-02 09:18] LABS: ALT 33 U/L (21-72); AST 21 U/L (17-59); Alkaline Phosphatase 56 U/L (38-126); Anion Gap 9 mmol/L; Blood Urea Nitrogen 19 mg/dL (9-20); Calcium 8.7 mg/dL (8.4-10.2); Carbon Dioxide 23 mmol/L (22-30); Chloride 108 mmol/L (98-107); Glucose 71 mg/dL (74-99); Non-African American GFR(MDRD) >60 (>60 ml/min/1.73 sqM); Potassium 4.4 mmol/L (3.5-5.1); Sodium 140 mmol/L (137-145); Total Bilirubin 0.3 mg/dL (0.2-1.3); Total Protein 6.3 g/dL (6.3-8.2)
--- NOTE | 2017-04-02 09:27 | CT ---
EXAMINATION TYPE: CT brain wo con DATE OF EXAM: 04/02/2017 COMPARISON: NONE HISTORY: seizure CT DLP: 981.7 mGycm. Automated Exposure Control for Dose Reduction was Utilized. TECHNIQUE: CT scan of the head is performed without contrast. FINDINGS: There is no acute intracranial hemorrhage, mass effect, or midline shift identified. The ventricles and sulci are within normal limits in size. There is extra-axial CSF prominence anterior left middle cranial fossa measuring 2.3 x 1.5 cm on axial image 12, and arachnoid cyst is suspected a t this level. Craniocaudal dimension is 1.8 cm on coronal image 20. The visualized globes are intact bilaterally. There is moderate to severe mucosal thickening involving the anterior ethmoid sinuses bilaterally. Th ere is mild mucosal thickening involving visualized portion of bilateral maxillary sinuses. There is some patchy opacification involving bilateral frontal sinuses. IMPRESSION: 1. No acute intracranial hemorrhage or midline shift is seen. 2. Probable 2.3 cm left temporal region arachnoid cyst. Consider nonemergent MRI follow-up. 3. Acute on chronic paranasal sinus disease as detailed above.
[2017-04-02 09:41] LABS: Appearance,Urine Clear (Clear); Bilirubin,Urine Negative (Negative); Glucose,Urine (UA) Negative (Negative); Granular Casts,Urine 3 /lpf (0); Ketones,Urine 1+ (Negative); Leukocyte Esterase,Urine Trace (Negative); Mucus,Urine Rare /hpf; Nitrite,Urine Negative (Negative); Particle Count 1652; Protein,Urine Negative (Negative); Specific Gravity,Urine 1.013 (1.001-1.035); Squamous Epithelial Cell,Urine <1 /hpf (0-4); UA Billing (MACRO vs. MICRO) MICRO; Urobilinogen,Urine <2.0 mg/dL (<2.0); WBC,Urine 1 /hpf (0-5)
[2017-04-02] MEDS ORDERED: ONDANSETRON 4 MG/2 ML VIAL IVP PRN (10:34)
[2017-04-02] MEDS ORDERED: ACETAMINOPHEN TAB 325 MG TAB PO PRN (10:34)
[2017-04-02] MEDS ORDERED: NALOXONE 0.4 MG/ML 1 ML VIAL IV PRN (10:34)
[2017-04-02] MEDS ORDERED: LORazepam 2 MG/ML SYRINGE IV PRN (11:43)
--- NOTE | 2017-04-02 14:29 | P.HPIM ---
History of Present Illness H&P Date: 04/02/17 Chief Complaint: Seizure This is a 41-year-old gentleman with past medical history also significant for underlying schizoaffective disorder and history of polysubstance abuse with multiple times hospitalization to the psych unit who was recently discharged from a rehab facility. Patient was mostly sleepy today when I saw him as he said they did not get good sleep last night. He did not provide a great medical history. Most of the medical history was obtained by chart review. Apparently, patient was brought to the emergency room by EMS after he had an episode of seizure witnessed by one of his friends. Nobody at bedside to provide medical history. Patient said that he was diagnosed with seizure long time ago but never took medications for it. He said that since he got out of rehab he did not use any drugs. He only smoked marijuana prior to his presentation and sewn after he had the seizure. He was doing fairly well otherwise. He was evaluated in the emergency room and computed tomography scan of the brain showed finding suspected for subarachnoid cyst involving the temporal lobe. No further seizure activity since admission. Patient is currently placed in observation awaiting neurology evaluation. Review of Systems Review of system: 14 points review of systems were obtained and were negative except to what were mentioned in the HPI. Past Medical History Past Medical History: COPD, GERD/Reflux, Musculoskeletal Disorder, Seizure Disorder Additional Past Medical History / Comment(s): scoliosis, herpes, hiatal hernia History of Any Multi-Drug Resistant Organisms: None Reported Past Surgical History: No Surgical Hx Reported Additional Past Surgical History / Comment(s): EGD about 10 years ago Past Anesthesia/Blood Transfusion Reactions: No Reported Reaction Past Psychological History: Anxiety, Bipolar, Depression, Schizoaffective Disorder Smoking Status: Current every day smoker Past Alcohol Use History: Occasional Past Drug Use History: Cocaine, Heroin, IV Drug Use, Marijuana, Methamphetamine - Past Family History Mother History Unknown: Yes Father History Unknown: Yes Medications and Allergies Home Medications Medication Instructions Recorded Confirmed Type fluPHENAZine DECANOATE [Prolixin 50 mg IM TH 09/13/16 04/02/17 History Decanoate] DULoxetine HCL [Cymbalta] 60 mg PO DAILY 02/10/17 04/02/17 History Trihexyphenidyl HCl 5 mg PO BID 02/10/17 04/02/17 History Gabapentin [Neurontin] 600 mg PO TID 04/02/17 04/02/17 History Allergies Allergy/AdvReac Type Severity Reaction Status Date / Time cat dander Allergy Itching Verified 04/02/17 09:34 Physical Exam Vitals: Vital Signs Temp Pulse Pulse Resp BP BP Pulse Ox 04/02/17 12:00 110 H 18 04/02/17 11:39 97.4 F L 74 18 111/73 99 04/02/17 11:00 97.2 F L 76 18 114/63 97 04/02/17 09:40 75 18 108/59 91 L 04/02/17 08:39 97.1 F L 77 18 108/61 99 Intake and Output 04/01/17 04/02/17 04/02/17 22:59 06:59 14:59 Intake Total 1000 Balance 1000 Intake: Amount of Fluid Infused ( 1000 ml) Other: Weight 65.7 kg Patient Weight 04/03/17 06:59 Weight 65.7 kg General: The patient is awake and alert, in no distress Eye: there is normal conjunctiva bilaterally. Neck: The neck is supple, there is no JVD. Cardiovascular: Normal S1-S2, no S3-S4, no murmurs. Respiratory: Lungs clear to auscultation bilaterally Gastrointestinal: Abdomen is soft, nontender Musculoskeletal: There is no pedal edema. Neurological:. Speech is normal. Skin: Skin is warm and dry Results CBC & Chem 7: 04/02/17 08:54 04/02/17 08:54 Labs: Abnormal Lab Results - Last 24 Hours (Table) 04/02/17 04/02/17 04/02/17 Range/Units 08:54 08:54 09:24 RBC 4.25 L (4.30-5.90) m/uL Hgb 12.6 L (13.0-17.5) gm/dL Hct 38.4 L (39.0-53.0) % Chloride 108 H (98-107) mmol/L Glucose 71 L (74-99) mg/dL Urine Ketones 1+ H (Negative) Ur Leukocyte Esterase Trace H (Negative) Urine Mucus Rare H (None) /hpf U Marijuana (THC) Screen Detected H (NotDetected) Thrombosis Risk Factor Assmnt - Choose All That Apply Any of the Below Risk Factors Present?: No Other Risk Factors: No Thrombosis Risk Factor Assessment Level: Very Low Risk Assessment and Plan Plan: 1. Seizure: I would hold off starting antiepileptic medications until seen by neurology if needed. IV Ativan as needed ordered. 2. Suspected left temporal arachnoid cyst noted on computed tomography scan of the brain. I would order MRI for further evaluation. May be contributing to his seizure. 3. Underlying schizoaffective disorder 4. History of polysubstance abuse including cocaine and marijuana now only using marijuana Today, I reviewed his medication list and lab work results. Continue seizure precautions. I would order EEG. Awaiting neurology evaluation. Repeat lab work in the morning.
[2017-04-02] MEDS: GABAPENTIN 300 MG CAP PO SCH ×2 (17:18→21:17)
--- NOTE | 2017-04-02 19:29 | P.CNNES ---
History of Present Illness Consult date: 04/02/17 Requesting physician: Frandy Bolaños Reason for Consult: seizure Chief complaint: seizure History of Present Illness: The patient is a 41-year-old male who was brought into [facility] emergency room after he had a witnessed generalized tonic-clonic seizure. It is unclear how long the seizure lasted. The patient states that he remembers sitting down and then felt lightheaded and the next thing he remembers is every one waking him up and telling him that he just had a seizure. He did not have any sphincter incontinence or tongue biting. When asked about previous symptoms, he reports having 2 seizures when he was in his 20s. The patient does have history of psychiatric disorders and is on multiple medications that can reduce seizure thresholds. He states that he has not been started on any new medications and he has been on the current regiment for several years. He does treat with Dr. Fernandes for this. A computed tomography scan of the brain was done on arrival which showed no acute intracranial abnormalities. There was an incidental finding of a 2.3 cm left temporal region cyst, likely consistent with an arachnoid cyst. An MRI was done but the results are pending. I did review his EEG which was normal. His CBC and urinalysis were normal. His comprehensive metabolic profile was normal except for mild hypoglycemia at 71. His urine drug screen was positive for marijuana. At the time of my evaluation, he is laying in his bed and appears to be in no acute distress. He has not had any seizure-like activity since his admission. He is on seizure precautions. Review of Systems All systems: negative Constitutional: Denies chills, Denies fever Eyes: denies blurred vision, denies pain Ears, nose, mouth and throat: Denies headache, Denies sore throat Cardiovascular: Denies chest pain, Denies shortness of breath Respiratory: Denies cough Gastrointestinal: Denies abdominal pain, Denies diarrhea, Denies nausea, Denies vomiting Musculoskeletal: Denies myalgias Integumentary: Denies pruritus, Denies rash Neurological: Reports as per HPI, Reports convulsions, Reports seizures, Denies numbness, Denies weakness Psychiatric: Reports as per HPI, Reports anxiety, Reports depression, Reports difficulty concentrating Endocrine: Denies fatigue, Denies weight change Past Medical History Past Medical History: COPD, GERD/Reflux, Musculoskeletal Disorder, Seizure Disorder Additional Past Medical History / Comment(s): scoliosis, herpes, hiatal hernia History of Any Multi-Drug Resistant Organisms: None Reported Past Surgical History: No Surgical Hx Reported Additional Past Surgical History / Comment(s): EGD about 10 years ago Past Anesthesia/Blood Transfusion Reactions: No Reported Reaction Past Psychological History: Anxiety, Bipolar, Depression, Schizoaffective Disorder Smoking Status: Current every day smoker Past Alcohol Use History: Occasional Past Drug Use History: Cocaine, Heroin, IV Drug Use, Marijuana, Methamphetamine - Past Family History Mother History Unknown: Yes Father History Unknown: Yes Medications and Allergies Home Medications Medication Instructions Recorded Confirmed Type fluPHENAZine DECANOATE [Prolixin 50 mg IM TH 09/13/16 04/02/17 History Decanoate] DULoxetine HCL [Cymbalta] 60 mg PO DAILY 02/10/17 04/02/17 History Trihexyphenidyl HCl 5 mg PO BID 02/10/17 04/02/17 History Gabapentin [Neurontin] 600 mg PO TID 04/02/17 04/02/17 History Allergies Allergy/AdvReac Type Severity Reaction Status Date / Time cat dander Allergy Itching Verified 04/02/17 09:34 Physical Examination - Vital Signs Vital Signs: Vital Signs Temp Pulse Pulse Resp BP BP Pulse Ox 04/02/17 12:00 110 H 18 04/02/17 11:39 97.4 F L 74 18 111/73 99 04/02/17 11:00 97.2 F L 76 18 114/63 97 04/02/17 09:40 75 18 108/59 91 L 04/02/17 08:39 97.1 F L 77 18 108/61 99 Intake and Output 04/02/17 04/02/17 04/02/17 06:59 14:59 22:59 Intake Total 1000 236 Balance 1000 236 Intake: Amount of Fluid Infused ( 1000 ml) Oral 236 Other: Voiding Method Toilet Weight 65.7 kg Patient Weight 04/03/17 06:59 Weight 65.7 kg - Neurologic Detailed motor examination: full strength in all major muscle groups Detailed sensory examination: intact, light touch Cerebellar examination: other (tremor noticed in right arm. ) Results - Laboratory Findings CBC and BMP: 04/02/17 08:54 04/02/17 08:54 Abnormal Lab Findings: Abnormal Labs 04/02/17 04/02/17 04/02/17 08:54 08:54 09:24 RBC 4.25 L Hgb 12.6 L Hct 38.4 L Chloride 108 H Glucose 71 L Urine Ketones 1+ H Ur Leukocyte Esterase Trace H Urine Mucus Rare H U Marijuana (THC) Screen Detected H - Diagnostic Findings Comments: I did review his EEG which was normal. I did review his computed tomography scan of the brain as mentioned above. Assessment and Plan (1) Other specified disorders of brain Status: Acute (2) Bipolar 1 disorder Status: Chronic (3) Seizure Status: Acute (4) Chronic schizophrenia Status: Chronic Plan: The patient does appear to have had a generalized tonic-clonic seizure. As mentioned above, he reports having 2 previous seizures several years ago. I do recommend antiepileptic medications. Given his comorbidities, I will start him on Trileptal 300 mg twice a day. This should be increased to 600 mg twice a day in 1-2 weeks. The patient states that he does not drive. I did review his EEG which was normal. As for his computed tomography scan of the brain findings , this is felt to be a benign arachnoid cyst. An MRI of the brain has already been done and the results are pending. I will continue to follow with you. Further recommendations to follow. Continue seizure precautions for now. Time with Patient: Greater than 30
[2017-04-02] MEDS: OXcarbazepine 300 MG TAB PO SCH (21:17)
[2017-04-02] MEDS: HEPARIN SODIUM,PORCINE 5,000 UNIT/ML 1 ML VIAL SQ SCH (21:17)
[2017-04-02] MEDS: TRIHEXYPHENIDYL 2 MG TAB PO SCH (21:18)
--- NOTE | 2017-04-02 23:09 | MR ---
EXAMINATION TYPE: MR brain wo/w con DATE OF EXAM: 04/02/2017 COMPARISON: NONE HISTORY: Seizure, poss arachnoid cyst TECHNIQUE: Multiplanar, multisequence images of the brain and brainstem is performed without and with IV contras t, utilizing 13 mL intravenous MultiHance . FINDINGS: Ventricles of normal size. There is no mass effect nor midline shift. There is no sign of i ntracranial hemorrhage. There is a 4 mm focus of increased signal on the right parietal lobe us-whi te matter junction on the T2 and FLAIR images. There is widening of the subdural space in the anterio r aspect of the left middle cranial fossa. There is no mass effect in this area. This measures 2.5 x 1.5 cm. There is no evidence of cortical edema. There is normal flow-void in the anterior middle and posterior cerebral arteries. Corpus callosum appears normal. Brainstem appears normal. Sella turcica appears normal. There is no p athologic enhancement. IMPRESSION: Widened subdural space in the left middle cranial fossa without mass effect. I would cons ider arachnoid cyst as well as hypoplastic left temporal lobe. Small isolated focus of increased sign al in the white matter right parietal lobe of doubtful significance.
[2017-04-03 07:29] LABS: Basophils # (A) 0.1 k/uL (0-0.2); Basophils % (A) 1 %; CH 29.7; CHCM 32.5; Eosinophils # (A) 0.5 k/uL (0-0.7); Eosinophils % (A) 10 %; HCT 41.9 % (39.0-53.0); HDW 2.18; HGB 13.7 gm/dL (13.0-17.5); Luc # (Auto) 0.17; Luc % (Auto) 3; Lymphocytes # (A) 1.9 k/uL (1.0-4.8); Lymphocytes % (A) 34 %; MCH 30.1 pg (25.0-35.0); MCHC 32.8 g/dL (31.0-37.0); MCV 91.8 fL (80.0-100.0); Mean Platelet Volume 6.7; Monocytes # (A) 0.3 k/uL (0-1.0); Monocytes % (A) 6 %; Neutrophils # (A) 2.6 k/uL (1.3-7.7); Neutrophils % (A) 47 %; RBC 4.56 m/uL (4.30-5.90); RDW 13.8 % (11.5-15.5); WBC 5.6 k/uL (3.8-10.6); WBC (Perox) 5.75
[2017-04-03 07:35] VITALS: RESP 16
[2017-04-03 07:42] LABS: ALT 27 U/L (21-72); AST 18 U/L (17-59); Alkaline Phosphatase 53 U/L (38-126); Anion Gap 8 mmol/L; Blood Urea Nitrogen 19 mg/dL (9-20); Calcium 9.1 mg/dL (8.4-10.2); Carbon Dioxide 22 mmol/L (22-30); Chloride 110 mmol/L (98-107); Glucose 80 mg/dL (74-99); Non-African American GFR(MDRD) >60 (>60 ml/min/1.73 sqM); Potassium 4.4 mmol/L (3.5-5.1); Sodium 140 mmol/L (137-145); Total Bilirubin 0.3 mg/dL (0.2-1.3); Total Protein 6.2 g/dL (6.3-8.2)
[2017-04-03] MEDS ORDERED: DULoxetine HCL 60 MG CAPSULE.DR PO SCH (09:00)
[2017-04-03] MEDS: OXcarbazepine 300 MG TAB PO SCH (09:08)
[2017-04-03] MEDS: TRIHEXYPHENIDYL 2 MG TAB PO SCH (09:08)
[2017-04-03] MEDS: HEPARIN SODIUM,PORCINE 5,000 UNIT/ML 1 ML VIAL SQ SCH (09:08)
[2017-04-03] MEDS: GABAPENTIN 300 MG CAP PO SCH ×2 (09:08→16:24)
--- NOTE | 2017-04-03 12:05 | EEG ---
DATE OF SERVICE: 04/02/2017 REASON FOR TESTING: Seizure. DESCRIPTION OF THE PROCEDURE: This EEG was performed using a 21-channel, digital electroencephalograph, following [employer] 10-20 System. DESCRIPTION OF THE RECORDING: From the beginning of the tracing and with the patients eyes closed, the background rhythm was mostly consisting of 8 Hz alpha frequency in the posterior occipital leads. No obvious asymmetry is seen. Photic stimulation was performed with a minimal driving response seen. No pathological waves were elicited. Hyperventilation was not performed. Occasional movement artifacts are seen. The patient remains awake throughout the tracing. No epileptiform discharges were seen. EKG leads showed a regular rate and rhythm. INTERPRETATION: This awake EEG can be considered within normal limits. There was no asymmetry seen. No epileptiform discharges were noticed. The absence of epileptiform discharges does not rule out the diagnosis of epilepsy, therefore clinical correlation is recommended. MTDD
--- NOTE | 2017-04-03 15:34 | P.PN ---
Subjective Principal diagnosis: Seizures This is a 41-year-old male continuing to be evaluated by the neurology service. He was brought in the [facility] emergency room after having a witnessed generalized tonic-clonic seizure. He has a distant history of seizures in his 20s. Her multiple medications for psychiatric disorders. Some of these can reduce seizure threshold. His CT of the brain showed no acute intracranial abnormalities. He had a normal EEG. He has been placed on Trileptal 300 mg twice daily and has no seizure activity since his admission. At time my exam he is resting comfortably in bed in no acute distress. Objective - Vital Signs Vital signs: Vital Signs Temp 98.1 F 04/03/17 11:53 Pulse 65 04/03/17 11:53 Resp 16 04/03/17 11:53 BP 113/69 04/03/17 11:53 Pulse Ox 96 04/03/17 11:53 Intake & Output 04/02/17 04/03/17 04/03/17 18:59 06:59 18:59 Intake Total 1236 472 Balance 1236 472 Weight 65.7 kg Intake: Amount of Fluid Infused ( 1000 ml) Oral 236 472 Other: Voiding Method Toilet Toilet Toilet # Voids 1 - Constitutional General appearance: Present: cooperative, no acute distress - EENT Eyes: Present: EOMI, PERRLA. Absent: abnormal pupil, ptosis ENT: Present: hearing grossly normal - Neck Neck: Present: normal ROM. Absent: rigidity - Respiratory Respiratory: negative: prolonged expiration, prolonged inspiration - Cardiovascular Rhythm: regular - Gastrointestinal General gastrointestinal: Absent: distended, tenderness - Neurologic Neurologic Comment(s): Patient is alert awake and oriented 3. Speech-language are normal. No tremors or seizure-like activities are seen. Strength is full in bilateral upper and lower extremities. There is no sensory deficit. - Labs CBC & Chem 7: 04/03/17 07:02 04/03/17 07:02 Labs: Abnormal Lab Results - Last 24 Hours (Table) 04/03/17 Range/Units 07:02 Chloride 110 H (98-107) mmol/L Total Protein 6.2 L (6.3-8.2) g/dL Assessment and Plan (1) Seizure Status: Chronic (2) Bipolar 1 disorder Status: Chronic (3) Acute anxiety Status: Chronic (4) Depression Status: Chronic Plan: Again the patient has had no seizure activity since admission. He reports no adverse reaction to Trileptal. Recommend continuing this medication with recommendations to increase to 600 mg twice daily and about 2 weeks. Continue seizure precautions. If he remains seizure free he is cleared from a neurological standpoint for discharge. Can be contacted on as-needed basis. I have performed a history and physical on the above patient. I have reviewed the above note, and agree.
--- NOTE | 2017-04-03 16:11 | P.DS ---
Providers Date of admission: 04/02/17 10:51 Attending physician: Frandy Bolaños Consults: 04/02/17 12:24 Consult Physician Routine Consulting Provider: Sander Sandoval Consult Reason/Comments: seizure Do you want consulting provider notified?: Yes Primary care physician: Frandy [facility] Course: 1. Seizure: Patient was seen and evaluated by neurology. He was started on Trileptal 300 mg twice daily. Plan is to increase the dose to 600 mg twice a day in a couple of weeks if patient is tolerating the medicine 2. Suspected left temporal arachnoid cyst noted on computed tomography scan of the brain. And confirmed by MRI. Less likely hypoplastic left temporal lobe. Seen and evaluated by neurology. 3. Underlying schizoaffective disorder: Follow-up with psychiatry closely as directed 4. History of polysubstance abuse including cocaine and marijuana now only using marijuana. Counseled extensively to stop Plan - Discharge Summary New Discharge Prescriptions: New OXcarbazepine [Trileptal] 300 mg PO BID #30 tab Continue fluPHENAZine DECANOATE [Prolixin Decanoate] 50 mg IM TH DULoxetine HCL [Cymbalta] 60 mg PO DAILY Trihexyphenidyl HCl 5 mg PO BID Gabapentin [Neurontin] 600 mg PO TID Discharge Medication List fluPHENAZine DECANOATE [Prolixin Decanoate] 50 mg IM TH 09/13/16 [History] DULoxetine HCL [Cymbalta] 60 mg PO DAILY 02/10/17 [History] Trihexyphenidyl HCl 5 mg PO BID 02/10/17 [History] Gabapentin [Neurontin] 600 mg PO TID 04/02/17 [History] OXcarbazepine [Trileptal] 300 mg PO BID #30 tab 04/03/17 [Rx] Follow up Appointment(s)/Referral(s): Sander Sandoval MD [STAFF PHYSICIAN] - 1 Week Frandy Bolaños MD [Primary Care Provider] - 1-2 days
[2017-04-03 16:18] VITALS: BP 111/80; PULSE 69; TEMP 97.9
== END 2017-04-03 16:47 | disposition home or self-care (01) ==
LOC: EC 08:34 → 3OBS 10:51
PROVIDERS: ADMIT Internal Medicine; ATTEND Internal Medicine
DX: G40.409 Other generalized epilepsy and epileptic syndromes, not intractable, without status epilepticus (principal); F12.90 Cannabis use, unspecified, uncomplicated; J30.81 Allergic rhinitis due to animal (cat) (dog) hair and dander; F17.200 Nicotine dependence, unspecified, uncomplicated; F41.9 Anxiety disorder, unspecified; F31.9 Bipolar disorder, unspecified; F25.9 Schizoaffective disorder, unspecified; K21.9 Gastro-esophageal reflux disease without esophagitis; J44.9 Chronic obstructive pulmonary disease, unspecified; M41.9 Scoliosis, unspecified; K44.9 Diaphragmatic hernia without obstruction or gangrene; B00.9 Herpesviral infection, unspecified; F14.10 Cocaine abuse, uncomplicated; Z79.899 Other long term (current) drug therapy
CPT/HCPCS: 96372 ×2; 96360; 99285; 36415; 95819; 93005; 80053 ×2; 85025 ×2; 81001; 80306; 70450; 70553; G0378 ×2; J1644 ×2; A9577

== ENCOUNTER → 2017-10-01 | Outpatient (CLI) | payer MEDICARE, OTHER ==
--- NOTE | 2017-10-01 15:09 | XR ---
EXAMINATION TYPE: XR thoracic spine complete DATE OF EXAM: 10/01/2017 CLINICAL HISTORY: Chronic mid back pain. Left mid back lump was sterilely per patient. TECHNIQUE: Frontal, lateral, and swimmer's view of thoracic spine are obtained. COMPARISON: None. FINDINGS: Thoracic spine show satisfactory alignment without evidence of acute fracture or dislocatio n. Vertebral body heights and disc space heights are preserved. There is mild multilevel anterior sp urring in the lower thoracic spine. Visualized ribs and pedicles are unremarkable bilaterally. Inci dental note is made of old healed fracture deformity of left clavicle. IMPRESSION: Mild multilevel spurring in the lower thoracic spine.
== END | disposition home or self-care (01) ==
LOC: RADXRMAIN 14:35
PROVIDERS: ATTEND Physician Assistant Medical
DX: M46.04 Spinal enthesopathy, thoracic region (principal); G89.29 Other chronic pain; Q67.5 Congenital deformity of spine
CPT/HCPCS: 72072

== ENCOUNTER 2017-11-23 00:50 | Emergency (ER) | payer MEDICARE, OTHER ==
[2017-11-23 01:23] VITALS: TEMP 97
--- NOTE | 2017-11-23 02:23 | XR ---
EXAMINATION TYPE: XR thoracic spine 2V DATE OF EXAM: 11/23/2017 COMPARISON: NONE HISTORY: Back pain TECHNIQUE: 3 views FINDINGS: Vertebra have fairly normal spacing and alignment. Posterior elements are intact and there is no paraspinal mass. I see no compression fracture. IMPRESSION: Negative thoracic spine exam. No fracture seen.
--- NOTE | 2017-11-23 02:24 | XR ---
EXAMINATION TYPE: XR lumbar spine 2 or 3V DATE OF EXAM: 11/23/2017 COMPARISON: NONE HISTORY: Back pain TECHNIQUE: 3 views FINDINGS: Lumbar vertebra have normal spacing and alignment. Posterior element are intact. There is n o compression fracture. Sacroiliac joints are normal. IMPRESSION: Normal lumbar spine.
--- NOTE | 2017-11-23 02:29 | ED ---
Back Pain HPI - General Chief Complaint: Back Pain/Injury Stated Complaint: Back Pain Time Seen by Provider: 11/23/17 01:35 Source: patient, RN notes reviewed, old records reviewed Limitations: no limitations - History of Present Illness Initial Comments: Sandy is a well appearing 41 year old male with CC of chronic back pain. Patient thinks that there are lesions onhis spine. He will not relate as to why he believes this. Patient denies hematuria, constipation, or any otehr symptoms. - Related Data Home Medications Medication Instructions Recorded Confirmed fluPHENAZine DECANOATE [Prolixin 50 mg IM TH 09/13/16 04/02/17 Decanoate] DULoxetine HCL [Cymbalta] 60 mg PO DAILY 02/10/17 04/02/17 Trihexyphenidyl HCl 5 mg PO BID 02/10/17 04/02/17 Gabapentin [Neurontin] 600 mg PO TID 04/02/17 04/02/17 Previous Rx's Medication Instructions Recorded OXcarbazepine [Trileptal] 300 mg PO BID #30 tab 04/03/17 Cyclobenzaprine [Flexeril] 5 mg PO TID #12 tablet 11/23/17 Allergies Allergy/AdvReac Type Severity Reaction Status Date / Time cat dander Allergy Itching Verified 04/02/17 09:34 Review of Systems ROS Statement: Those systems with pertinent positive or pertinent negative responses have been documented in the HPI. ROS Other: All systems not noted in ROS Statement are negative. Past Medical History Past Medical History: COPD, GERD/Reflux, Musculoskeletal Disorder, Seizure Disorder Additional Past Medical History / Comment(s): scoliosis, herpes, hiatal hernia, migraines History of Any Multi-Drug Resistant Organisms: None Reported Past Surgical History: No Surgical Hx Reported Additional Past Surgical History / Comment(s): EGD about 10 years ago Past Anesthesia/Blood Transfusion Reactions: No Reported Reaction Past Psychological History: Anxiety, Bipolar, Depression, Schizoaffective Disorder Smoking Status: Current every day smoker Past Alcohol Use History: Occasional Past Drug Use History: Cocaine, Heroin, IV Drug Use, Marijuana, Methamphetamine - Past Family History Mother History Unknown: Yes Father History Unknown: Yes General Exam - General Exam Comments Initial Comments: Sleeping, but well appearing 41 year old male. Ambulating wihtout difficulty. No distress. Limitations: no limitations General appearance: alert, in no apparent distress Head exam: Present: atraumatic, normocephalic, normal inspection Eye exam: Present: normal appearance, PERRL, EOMI. Absent: scleral icterus, conjunctival injection, periorbital swelling Neck exam: Present: normal inspection Respiratory exam: Present: normal lung sounds bilaterally. Absent: respiratory distress, wheezes, rales, rhonchi, stridor Cardiovascular Exam: Present: regular rate, normal rhythm, normal heart sounds. Absent: systolic murmur, diastolic murmur, rubs, gallop, clicks GI/Abdominal exam: Present: soft, normal bowel sounds. Absent: distended, tenderness, guarding, rebound, rigid Back exam: Present: normal inspection Neurological exam: Present: alert, oriented X3, CN II-XII intact Psychiatric exam: Present: normal affect Skin exam: Present: warm, dry, intact, normal color. Absent: rash Course Vital Signs 11/23/17 11/23/17 01:21 03:38 Temperature 97.0 F L Pulse Rate 112 H 99 Respiratory 20 18 Rate Blood Pressure 152/79 100/62 O2 Sat by Pulse 95 96 Oximetry Medical Decision Making - Medical Decision Making Pt is a 41 year old male with chronic back pain worsening. Worse with movement. Patient hasno saddle anesthesias or neurodeficits. Patient lumbar and thoracic spine are negative for acute disease. Patient reports he was told there was a "lesion" on his spine, no evidence of fracture or dislocation. At this time will dc pt with muscle relaxer and antiinflammatory. All quesiotns answered and return parameters discussed. - Radiology Data Radiology results: report reviewed XRay lumbar and thoracic are within normal limtiis. Disposition Clinical Impression: Chronic back pain Disposition: HOME SELF-CARE Condition: Good Instructions: Chronic Back Pain (ED) Additional Instructions: Follow-up with primary care provider. Take the muscle relaxer medicine and you' re regularly prescribed medications as prescribed. Patient should return to emergency department if any alarming signs or symptoms occur. Prescriptions: Cyclobenzaprine [Flexeril] 5 mg PO TID #12 tablet Referrals: Yane Heath MD [Primary Care Provider] - 1-2 days Time of Disposition: 02:30
[2017-11-23] MEDS ORDERED: ORPHENADRINE 30 MG/ML 2 ML VIAL IM STA (02:31)
[2017-11-23 03:40] VITALS: BP 100/62; PULSE 99; RESP 18
== END 2017-11-23 03:43 | disposition home or self-care (01) ==
LOC: EC 00:50
DX: M54.9 Dorsalgia, unspecified (principal); G89.29 Other chronic pain; G40.909 Epilepsy, unspecified, not intractable, without status epilepticus; F31.9 Bipolar disorder, unspecified; F25.9 Schizoaffective disorder, unspecified; F41.9 Anxiety disorder, unspecified; F17.200 Nicotine dependence, unspecified, uncomplicated; Z79.899 Other long term (current) drug therapy; Z91.048 Other nonmedicinal substance allergy status
CPT/HCPCS: 72070; 72100; 99284; 96372; J2360

== ENCOUNTER 2018-07-19 12:09 | Inpatient (IN) | payer MEDICARE, MEDICAID ==
--- NOTE | 2018-07-19 12:44 | ED ---
Psych HPI - General Chief Complaint: Psychiatric Symptoms Stated Complaint: mental health Time Seen by Provider: 07/19/18 12:28 Source: patient, RN notes reviewed Mode of arrival: ambulatory Limitations: no limitations - History of Present Illness Initial Comments: 42-year-old male presents emergency Department chief complaint of depression, suicidal ideation. Patient states that he is on multiple medications by [facility] states that there are not helping at this time. He states that he needs help. He doesn't to marijuana use currently states he does have a history of drug abuse. He's had some suicidal ideation with no plan to harm himself. Denies any homicidal ideations. Denies any physical complaints. - Related Data Home Medications Medication Instructions Recorded Confirmed fluPHENAZine DECANOATE [Prolixin 50 mg IM Q14D 09/13/16 07/19/18 Decanoate] Ergocalciferol (Vitamin D2) 50,000 unit PO QMONTH 07/19/18 07/19/18 [Vitamin D2] Ferrous Sulfate [Feosol] 325 mg PO DAILY 07/19/18 07/19/18 Gabapentin 800 mg PO TID 07/19/18 07/19/18 Lisinopril [Zestril] 5 mg PO DAILY 07/19/18 07/19/18 Omeprazole [PriLOSEC] 20 mg PO AC-BID 07/19/18 07/19/18 Allergies Allergy/AdvReac Type Severity Reaction Status Date / Time cat dander Allergy Itching Verified 07/19/18 12:30 Review of Systems ROS Statement: Those systems with pertinent positive or pertinent negative responses have been documented in the HPI. ROS Other: All systems not noted in ROS Statement are negative. Past Medical History Past Medical History: COPD, GERD/Reflux, Musculoskeletal Disorder, Seizure Disorder Additional Past Medical History / Comment(s): scoliosis, herpes, hiatal hernia, migraines History of Any Multi-Drug Resistant Organisms: None Reported Past Surgical History: No Surgical Hx Reported Additional Past Surgical History / Comment(s): EGD about 10 years ago Past Anesthesia/Blood Transfusion Reactions: No Reported Reaction Past Psychological History: Anxiety, Bipolar, Depression, Schizoaffective Disorder Smoking Status: Current every day smoker Past Alcohol Use History: Occasional Past Drug Use History: Cocaine, Heroin, IV Drug Use, Marijuana, Methamphetamine - Past Family History Mother History Unknown: Yes Father History Unknown: Yes General Exam Limitations: no limitations General appearance: alert, in no apparent distress Head exam: Present: atraumatic, normocephalic, normal inspection Eye exam: Present: normal appearance, PERRL, EOMI. Absent: scleral icterus, conjunctival injection, periorbital swelling ENT exam: Present: normal exam, normal oropharynx, mucous membranes moist Neck exam: Present: normal inspection, full ROM. Absent: tenderness, meningismus, lymphadenopathy Respiratory exam: Present: normal lung sounds bilaterally. Absent: respiratory distress, wheezes, rales, rhonchi, stridor Cardiovascular Exam: Present: regular rate, normal rhythm, normal heart sounds. Absent: systolic murmur, diastolic murmur, rubs, gallop, clicks Neurological exam: Present: alert, oriented X3, CN II-XII intact Psychiatric exam: Present: flat affect Course Vital Signs 07/19/18 12:28 Temperature 96.1 F L Pulse Rate 86 Respiratory 18 Rate Blood Pressure 135/94 O2 Sat by Pulse 98 Oximetry Disposition Clinical Impression: Acute anxiety, Chronic schizophrenia, Depression, Suicidal ideation Disposition: TRANSFER TO PSYCH HOSP/UNIT Condition: Stable
[2018-07-19 13:35] LABS: Amphetamine Screen,Urine Not Detected (NotDetected); Barbiturate Screen,Urine Not Detected (NotDetected); Benzodiazepines Screen,Urine Not Detected (NotDetected); Cocaine Screen,Urine Not Detected (NotDetected); Methadone Screen, Urine Not Detected (NotDetected); Opiate Screen,Urine Not Detected (NotDetected); Oxycodone Screen, Urine Not Detected (NotDetected); Phencyclidine Screen,Urine Not Detected (NotDetected); Tricyclic Antidepressant,Urine Not Detected (NotDetected); Urn Cannabinoid Scrn Not Detected (NotDetected)
[2018-07-19] MEDS ORDERED: ACETAMINOPHEN TAB 325 MG TAB PO PRN (16:11)
[2018-07-19] MEDS ORDERED: MAGNESIUM HYDROXIDE 2,400 MG/10 ML CUP PO PRN (16:11)
[2018-07-19] MEDS ORDERED: MAG HYDROX/AL HYDROX/SIMETH 30 ML CUP PO PRN (16:11)
[2018-07-19] MEDS ORDERED: ZIPRASIDONE 20 MG VIAL IM PRN (16:11)
[2018-07-19 16:34] VITALS: BMI 25.0
[2018-07-19] MEDS: NICOTINE 14MG/24HR PATCH TRANSDERM SCH (16:44)
--- NOTE | 2018-07-19 16:49 | P.CONS ---
History of Present Illness - Reason for Consult Consult date: 07/19/18 Medical management - Chief Complaint Depression with suicidal thoughts - History of Present Illness This is a 42-year-old male who is currently admitted to the psych unit for further evaluation of severe depression and suicidal thoughts. Patient presented to the emergency room with nonspecific suicidal thought. He said that he does not have a specific plans. He told me that he feels already better. He denies any recent substance abuse that is known to have a history of substance abuse. No lab work done in the emergency room. Urine toxicology screen was negative. I was asked to see him for medical management. Patient himself does not have any specific concerns or complaints. He said that he takes his medication at home as prescribed. Review of Systems Review of system: 14 points review of systems were obtained and were negative except to what were mentioned in the HPI. Past Medical History Past Medical History: COPD, GERD/Reflux, Musculoskeletal Disorder, Seizure Disorder Additional Past Medical History / Comment(s): scoliosis, herpes, hiatal hernia, migraines History of Any Multi-Drug Resistant Organisms: None Reported Past Surgical History: No Surgical Hx Reported Additional Past Surgical History / Comment(s): EGD about 10 years ago Past Anesthesia/Blood Transfusion Reactions: No Reported Reaction Past Psychological History: Anxiety, Bipolar, Depression, Schizoaffective Disorder Smoking Status: Current every day smoker Past Alcohol Use History: Occasional Past Drug Use History: Cocaine, Heroin, IV Drug Use, Marijuana, Methamphetamine - Past Family History Mother History Unknown: Yes Father History Unknown: Yes Medications and Allergies Home Medications Medication Instructions Recorded Confirmed Type fluPHENAZine DECANOATE [Prolixin 50 mg IM Q14D 09/13/16 07/19/18 History Decanoate] Ergocalciferol (Vitamin D2) 50,000 unit PO QMONTH 07/19/18 07/19/18 History [Vitamin D2] Ferrous Sulfate [Feosol] 325 mg PO DAILY 07/19/18 07/19/18 History Gabapentin 800 mg PO TID 07/19/18 07/19/18 History Lisinopril [Zestril] 5 mg PO DAILY 07/19/18 07/19/18 History Omeprazole [PriLOSEC] 20 mg PO AC-BID 07/19/18 07/19/18 History Allergies Allergy/AdvReac Type Severity Reaction Status Date / Time cat dander Allergy Itching Verified 07/19/18 16:34 Physical Exam Vitals: Vital Signs Temp Pulse Pulse Resp BP BP Pulse Ox 07/19/18 16:19 97.3 F L 77 20 134/85 07/19/18 12:28 96.1 F L 86 18 135/94 98 Intake and Output 07/19/18 07/19/18 07/19/18 06:59 14:59 22:59 Other: Weight 65.771 kg 70.307 kg General: The patient is awake and alert, in no distress Eye: there is normal conjunctiva bilaterally. Neck: The neck is supple, there is no JVD. Cardiovascular: Normal S1-S2, no S3-S4, no murmurs. Respiratory: Lungs clear to auscultation bilaterally Gastrointestinal: Abdomen is soft, nontender Musculoskeletal: There is no pedal edema. Neurological:. Speech is normal. Skin: Skin is warm and dry Assessment and Plan Assessment: 1. Severe depression with suicidal thoughts 2. Underlying schizoaffective disorder 3. Essential hypertension, blood pressure within acceptable range 4. History of polysubstance abuse Today, I reviewed his medication list. Continue current regimen. We will continue to follow up on him on an as-needed basis. Thank you very much for the consultation.
[2018-07-19] MEDS: PANTOPRAZOLE 40 MG TABLET PO SCH (17:13)
[2018-07-19] MEDS ORDERED: GABAPENTIN 400 MG CAP PO SCH (22:00)
[2018-07-20] MEDS: PANTOPRAZOLE 40 MG TABLET PO SCH ×2 (08:31→16:18)
[2018-07-20] MEDS: LISINOPRIL 5 MG TAB PO SCH (08:31)
[2018-07-20] MEDS: NICOTINE 14MG/24HR PATCH TRANSDERM SCH (08:31)
[2018-07-20 08:44] LABS: Basophils # (A) 0.1 k/uL (0-0.2); Basophils % (A) 2 %; Eosinophils # (A) 0.7 k/uL (0-0.7); Eosinophils % (A) 10 %; HCT 42.9 % (39.0-53.0); HGB 14.1 gm/dL (13.0-17.5); Lymphocytes # (A) 1.8 k/uL (1.0-4.8); Lymphocytes % (A) 26 %; MCH 28.9 pg (25.0-35.0); MCHC 32.8 g/dL (31.0-37.0); MCV 88.1 fL (80.0-100.0); Mean Platelet Volume 6.6; Monocytes # (A) 0.4 k/uL (0-1.0); Monocytes % (A) 6 %; Neutrophils # (A) 3.7 k/uL (1.3-7.7); Neutrophils % (A) 55 %; Platelet Count 251 k/uL (150-450); RBC 4.86 m/uL (4.30-5.90); RDW 14.1 % (11.5-15.5); WBC 6.7 k/uL (3.8-10.6)
[2018-07-20] MEDS ORDERED: GABAPENTIN 400 MG CAP PO SCH (09:00)
[2018-07-20 09:05] LABS: ALT 20 U/L (21-72); AST 18 U/L (17-59); Albumin 3.8 g/dL (3.5-5.0); Alkaline Phosphatase 63 U/L (38-126); Anion Gap 6 mmol/L; Bilirubin, Delta 0.3 mg/dL (0.0-0.2); Blood Urea Nitrogen 15 mg/dL (9-20); Calcium 9.5 mg/dL (8.4-10.2); Carbon Dioxide 26 mmol/L (22-30); Chloride 108 mmol/L (98-107); Cholesterol 181 mg/dL (<200); Glucose 88 mg/dL (74-99); HDL Cholesterol 36 mg/dL (40-60); LDL Cholesterol,Calculated 100 mg/dL (0-99); Potassium 4.6 mmol/L (3.5-5.1); Sodium 140 mmol/L (137-145); Total Bilirubin 0.3 mg/dL (0.2-1.3); Total Protein 6.8 g/dL (6.3-8.2); Triglycerides 224 mg/dL (<150)
--- NOTE | 2018-07-20 10:19 | P.HP ---
Psychiatric H&P - . H&P Date: 07/20/18 History & Physical: Allergies Allergy/AdvReac Type Severity Reaction Status Date / Time cat dander Allergy Itching Verified 07/19/18 16:34 Vital Signs Temp 97.5 F L 07/20/18 06:32 Pulse 81 07/20/18 06:32 Resp 14 07/20/18 06:32 BP 115/72 07/20/18 06:32 Pulse Ox 98 07/19/18 12:28 Intake & Output 07/19/18 07/20/18 07/20/18 18:59 06:59 18:59 Weight 70.307 kg Laboratory Last Values WBC 6.7 k/uL (3.8-10.6) 07/20/18 08:09 RBC 4.86 m/uL (4.30-5.90) 07/20/18 08:09 Hgb 14.1 gm/dL (13.0-17.5) 07/20/18 08:09 Hct 42.9 % (39.0-53.0) 07/20/18 08:09 MCV 88.1 fL (80.0-100.0) 07/20/18 08:09 MCH 28.9 pg (25.0-35.0) 07/20/18 08:09 MCHC 32.8 g/dL (31.0-37.0) 07/20/18 08:09 RDW 14.1 % (11.5-15.5) 07/20/18 08:09 Plt Count 251 k/uL (150-450) 07/20/18 08:09 Neutrophils % 55 % 07/20/18 08:09 Lymphocytes % 26 % 07/20/18 08:09 Monocytes % 6 % 07/20/18 08:09 Eosinophils % 10 % 07/20/18 08:09 Basophils % 2 % 07/20/18 08:09 Neutrophils # 3.7 k/uL (1.3-7.7) 07/20/18 08:09 Lymphocytes # 1.8 k/uL (1.0-4.8) 07/20/18 08:09 Monocytes # 0.4 k/uL (0-1.0) 07/20/18 08:09 Eosinophils # 0.7 k/uL (0-0.7) 07/20/18 08:09 Basophils # 0.1 k/uL (0-0.2) 07/20/18 08:09 Sodium 140 mmol/L (137-145) 07/20/18 08:09 Potassium 4.6 mmol/L (3.5-5.1) 07/20/18 08:09 Chloride 108 mmol/L (98-107) H 07/20/18 08:09 Carbon Dioxide 26 mmol/L (22-30) 07/20/18 08:09 Anion Gap 6 mmol/L 07/20/18 08:09 BUN 15 mg/dL (9-20) 07/20/18 08:09 Creatinine 0.95 mg/dL (0.66-1.25) 07/20/18 08:09 Est GFR (CKD-EPI)AfAm >90 (>60 ml/min/1.73 sqM) 07/20/18 08:09 Est GFR (CKD-EPI)NonAf >90 (>60 ml/min/1.73 sqM) 07/20/18 08:09 Glucose 88 mg/dL (74-99) 07/20/18 08:09 Calcium 9.5 mg/dL (8.4-10.2) 07/20/18 08:09 Total Bilirubin 0.3 mg/dL (0.2-1.3) 07/20/18 08:09 Conjugated Bilirubin 0.0 mg/dL (0.0-0.3) 07/20/18 08:09 Unconjugated Bilirubin 0.0 mg/dL (0.0-1.1) 07/20/18 08:09 Delta Bilirubin 0.3 mg/dL (0.0-0.2) H 07/20/18 08:09 AST 18 U/L (17-59) 07/20/18 08:09 ALT 20 U/L (21-72) L 07/20/18 08:09 Alkaline Phosphatase 63 U/L (38-126) 07/20/18 08:09 Total Protein 6.8 g/dL (6.3-8.2) 07/20/18 08:09 Albumin 3.8 g/dL (3.5-5.0) 07/20/18 08:09 Triglycerides 224 mg/dL (<150) H 07/20/18 08:09 Cholesterol 181 mg/dL (<200) 07/20/18 08:09 LDL Cholesterol, Calc 100 mg/dL (0-99) H 07/20/18 08:09 HDL Cholesterol 36 mg/dL (40-60) L 07/20/18 08:09 TSH 0.579 mIU/L (0.465-4.680) 07/20/18 08:09 Urine Opiates Screen Not Detected (NotDetected) 07/19/18 12:15 Ur Oxycodone Screen Not Detected (NotDetected) 07/19/18 12:15 Urine Methadone Screen Not Detected (NotDetected) 07/19/18 12:15 Ur Propoxyphene Screen Not Detected (NotDetected) 07/19/18 12:15 Ur Barbiturates Screen Not Detected (NotDetected) 07/19/18 12:15 U Tricyclic Antidepress Not Detected (NotDetected) 07/19/18 12:15 Ur Phencyclidine Scrn Not Detected (NotDetected) 07/19/18 12:15 Ur Amphetamines Screen Not Detected (NotDetected) 07/19/18 12:15 U Methamphetamines Scrn Not Detected (NotDetected) 07/19/18 12:15 U Benzodiazepines Scrn Not Detected (NotDetected) 07/19/18 12:15 Urine Cocaine Screen Not Detected (NotDetected) 07/19/18 12:15 U Marijuana (THC) Screen Not Detected (NotDetected) 07/19/18 12:15 Assessment and Plan Assessment: HPI:42-year-old male presents emergency Department chief complaint of depression , suicidal ideation. Patient states that he is on multiple medications by [facility] states that there are not helping at this time. He states that he needs help. He doesn't to marijuana use currently states he does have a history of drug abuse. He's had some suicidal ideation with no plan to harm himself. Denies any homicidal ideation. Denies any physical complaints. I am sad this time a year because all my family are . I have no family and I'm lonely. - Related Data Home Medications Medication Instructions Recorded Confirmed fluPHENAZine DECANOATE [Prolixin 50 mg IM Q14D 09/13/16 07/19/18 Decanoate] Ergocalciferol (Vitamin D2) 50,000 unit PO QMONTH 07/19/18 07/19/18 [Vitamin D2] Ferrous Sulfate [Feosol] 325 mg PO DAILY 07/19/18 07/19/18 Gabapentin 800 mg PO TID 07/19/18 07/19/18 Lisinopril [Zestril] 5 mg PO DAILY 07/19/18 07/19/18 Omeprazole [PriLOSEC] 20 mg PO AC-BID 07/19/18 07/19/18 Allergies Allergy/AdvReac Type Severity Reaction Status Date / Time cat dander Allergy Itching Verified 07/19/18 12:30 Past psychiatric history: He was admitted on this unit on 02/21/2016 and was released on 02/24/2016. His admission in January was voluntary. During that admission, he presented with a report of auditory and visual hallucination. He stated that he was hearing people talking about him. He reported incidences of hallucinations in the past. When he was seen at the ER last night, he denies ever experiencing hallucinations in his life. He was not compliant with the Zyprexa that was prescribed for him when admitted on this unit in February 2016. He also reported that he was in a relationship which has gone bad over the past few weeks. During that admission, he admitted to using marijuana and LSD. When admitted in February 2016 on this unit, he stated that the reason for admission was "the same paranoid delusions and voices, I guess." He reported hearing telepathic voices and hearing what people were thinking. He was noted as very irritable and not cooperative. He wanted to make sure he was prescribed Ativan. During that admission, his aunt apparently dropped him off at the ER and he was very angry, irritable and very tense. He became angry at the emergency room during that admission. He reported high anxiety and that he was homeless at that time. He presented with suicidal thoughts. He has been admitted in this facility about 21 times not including the admission in February 2016. He has a history of medication noncompliance. His mother apparently committed suicide. He admitted to using hallucinogenic substances in the past. He reported hearing voices and seeing things in the past. He admitted to having past suicidal thoughts. He reports being diagnosed with schizophrenia. He reported being admitted in a psychiatric hospital many times in the past. He has reported hearing the voice of his mother talking to him in the past. He reported past depressive episodes. He also reported past episodes of anxiety. He has not endorsed being abused by anyone. He has been diagnosed with schizoaffective disorder, bipolar type, cannabis abuse and cocaine use. Substance abuse history: His urine drug screen on this admission is negative for the marijuana, cocaine and amphetamines. . He admits to using marijuana. He states that he uses marijuana daily because he has a marijuana card. He reports using 7-14 g marijuana at times. He states that there are times when he uses less but he uses a lot most of the time. He states that narcotics makes him rotten and mean. He reports using alcohol rarely. He states that he has no reason to go to a substance abuse program. He smokes 1 pack per day of tobacco. He states that he does not want a nicotine patch because he is ALLERGIC to patches. He requested nicotine gum. He reported a past history of mescaline and LSD abuse. Past Medical History Past Medical History: COPD, GERD/Reflux, Musculoskeletal Disorder, Seizure Disorder Additional Past Medical History / Comment(s): scoliosis, herpes, hiatal hernia, migraines History of Any Multi-Drug Resistant Organisms: None Reported Past Surgical History: No Surgical Hx Reported Additional Past Surgical History / Comment(s): EGD about 10 years ago Past Anesthesia/Blood Transfusion Reactions: No Reported Reaction Past Psychological History: Anxiety, Bipolar, Depression, Schizoaffective Disorder Smoking Status: Current every day smoker Past Alcohol Use History: Occasional Past Drug Use History: Cocaine, Heroin, IV Drug Use, Marijuana, Methamphetamine - Past Family History Mother History Unknown: Yes Father History Unknown: Yes ALLERGIES: NO KNOWN DRUG ALLERGIES but he claims that he is ALLERGIC to nicotine patches. Past medications tried: Zoloft, Klonopin, Ativan, Haldol D, Cymbalta, Invega Sustenna, Tofranil, Risperdal Social history: He reports that he is homeless. He reports having an off-and- on relationship with the girlfriend. Musculoskeletal Examination - Abnormal/Involuntary Movements: [none Strength: [greater than antigravity (greater than/equal to 3/5) in all extremities Muscle Tone: [no impairment Gait: [grossly normal Station: [grossly normal Mental Status Examination - General Appearance: [ casual, appears stated age, Speech/Language: [spontaneous, slow, soft] Attitude/Behavior: [cooperative, withdrawn, indifferent] Mood: [depressed 5/10, anxious 5/10, angry, fearful, hopelessness] Affect: [ flat, incongruent, labile, blunted constricted] Orientation: [time, person, place situation] Thought Content: [wnl Risk Factors: [He does have suicidal (ideations, plan), but denies Homicidal ( ideations, plan)] Perception: [hallucinations (visual), other] Thought Processes: [ concrete, circumstantial, tangential] Concentration/Attention Span: [impaired] [Per observation and interview with the patient] Recent Memory: [wnl] [ 3 out of 3 in 3 minutes] Remote Memory: [wnl] [past events, as related history] Intelligence: [below average] [based on history, based on vocabulary, syntax, grammar, and content] Judgement: [ poor] [per patient's behavior/history of present illness] Insight: [poor] [understanding severity of illness/history of present illness] Admitting Diagnosis: [ Schizoaffective disorder; resolved marijuana cocaine and opiate use disorder] Patient Strengths - Steady employment/financial stability: [Disabled] Housing stability: [Currently at [facility]] Able to vocalize needs: [x] Patient Limitations: [medication, non-compliance, pathological/unsupported environment, Initial Plan of Care: [Due to suicidal thoughts and progressive feelings of depression he be admitted to the psychiatric unit on a voluntary basis. He also be evaluated by medicine, psychiatry, nursing staff, social work, and recreational therapy. He'll be integrated into a stacy milieu therapy environment and will attend groups for medication meditation education and stabilization.] Estimated Length of Stay: [5-7 days] Initial Discharge Plan: [[place], [facility], referred to therapist Prognosis: [ fair] Justification for Inpatient Hospitalization - [Hallucinations, agitation, anxiety, depression resulting in significant loss of functioning.] [Dangerous to self, others, or property with need for controlled environment.] [Emotional or behavioral conditions and complications requiring 24 hour medical and nursing care.] [Need for special drug therapy, or other therapeutic program requiring continuous hospitalization.] [Failure of social or occupational functioning.] [Inability to meet basic life and health needs.] Plan: He will reach decreased on his gabapentin 800 mg 3 times a day to 400 mg 3 times a day. He also was started on Invega 3 mg by mouth daily at bedtime and Lamictal 25 mg by mouth daily at bedtime. It appears that he has a schizoaffective disorder of bipolar type and will treat him for this by using antipsychotic and a mood stabilizer. He also be weaned off his gabapentin over the next 3 days. Time with Patient: Less than 30
[2018-07-20] MEDS: FERROUS SULFATE 325 MG TAB PO SCH (12:50)
[2018-07-20] MEDS: GABAPENTIN 400 MG CAP PO SCH ×2 (16:18→21:32)
[2018-07-20] MEDS ORDERED: PALIPERIDONE 3 MG TAB.ER.24 PO SCH (21:00)
[2018-07-20] MEDS ORDERED: lamoTRIgine 25 MG TAB PO SCH (21:00)
[2018-07-21] MEDS: NICOTINE 14MG/24HR PATCH TRANSDERM SCH (08:58)
[2018-07-21] MEDS: LISINOPRIL 5 MG TAB PO SCH (08:58)
[2018-07-21] MEDS: GABAPENTIN 400 MG CAP PO SCH (08:59)
[2018-07-21] MEDS: PANTOPRAZOLE 40 MG TABLET PO SCH ×2 (08:59→17:28)
[2018-07-21 11:24] LABS: Hemoglobin A1C 5.8 % (4.0-6.0)
[2018-07-21] MEDS: FERROUS SULFATE 325 MG TAB PO SCH (12:08)
--- NOTE | 2018-07-21 12:33 | P.PN ---
Subjective Progress Note Date: 07/21/18 Principal diagnosis: schizooaffective bipolar type I fell better today. No voices. No SI/HI; rapid cycling Objective - Vital Signs Vital signs: Vital Signs Temp 97.6 F 07/21/18 06:39 Pulse 80 07/21/18 06:39 Resp 14 07/21/18 06:39 BP 112/63 07/21/18 06:39 Pulse Ox 98 07/19/18 12:28 Intake & Output 07/20/18 07/21/18 07/21/18 18:59 06:59 18:59 Weight 69.2 kg - Labs CBC & Chem 7: 07/20/18 08:09 07/20/18 08:09 Assessment and Plan Assessment: HPI:42-year-old male presents emergency Department chief complaint of depression , suicidal ideation. Patient states that he is on multiple medications by [facility] states that there are not helping at this time. He states that he needs help. He doesn't to marijuana use currently states he does have a history of drug abuse. He's had some suicidal ideation with no plan to harm himself. Denies any homicidal ideation. Denies any physical complaints. I am sad this time a year because all my family are . I have no family and I'm lonely. - Related Data Mental Status Examination - General Appearance: [ casual, appears stated age, Speech/Language: [spontaneous, slow, soft] Attitude/Behavior: [cooperative, withdrawn, indifferent] Mood: [depressed 5/10, anxious 5/10, angry, fearful, hopelessness] Affect: [ flat, incongruent, labile, blunted constricted] Orientation: [time, person, place situation] Thought Content: [wnl Risk Factors: [He does have suicidal (ideations, plan), but denies Homicidal ( ideations, plan)] Perception: [hallucinations (visual), other] Thought Processes: [ concrete, circumstantial, tangential] Concentration/Attention Span: [impaired] [Per observation and interview with the patient] Recent Memory: [wnl] [ 3 out of 3 in 3 minutes] Remote Memory: [wnl] [past events, as related history] Intelligence: [below average] [based on history, based on vocabulary, syntax, grammar, and content] Judgement: [ poor] [per patient's behavior/history of present illness] Insight: [poor] [understanding severity of illness/history of present illness] Admitting Diagnosis: [ Schizoaffective disorder; resolved marijuana cocaine and opiate use disorder] Patient Strengths - Steady employment/financial stability: [Disabled] Housing stability: [Currently at [facility]] Able to vocalize needs: [x] Patient Limitations: [medication, non-compliance, pathological/unsupported environment, Initial Plan of Care: [Due to suicidal thoughts and progressive feelings of depression he be admitted to the psychiatric unit on a voluntary basis. He also be evaluated by medicine, psychiatry, nursing staff, social work, and recreational therapy. He'll be integrated into a stacy milieu therapy environment and will attend groups for medication meditation education and stabilization.] Estimated Length of Stay: [2 days] Initial Discharge Plan: [[place], [facility], referred to therapist Prognosis: [ fair] Justification for Inpatient Hospitalization - [Hallucinations, agitation, anxiety, depression resulting in significant loss of functioning.] [Dangerous to self, others, or property with need for controlled environment.] [Emotional or behavioral conditions and complications requiring 24 hour medical and nursing care.] [Need for special drug therapy, or other therapeutic program requiring continuous hospitalization.] [Failure of social or occupational functioning.] [Inability to meet basic life and health needs.] (1) Schizoaffective disorder with good prognostic features Current Visit: Yes Status: Acute Code(s): F25.9 - SCHIZOAFFECTIVE DISORDER, UNSPECIFIED SNOMED Code(s): 05712667 Plan: He will reach decreased on his gabapentin 800 mg 3 times a day to 200 mg 3 times a day. He also was started on Invega 6 mg by mouth daily at bedtime and Lamictal 50 mg by mouth daily at bedtime. It appears that he has a schizoaffective disorder of bipolar type and will treat him for this by using antipsychotic and a mood stabilizer. He also be weaned off his gabapentin over the next 3 days. Time with Patient: Less than 30
[2018-07-21] MEDS: NICOTINE POLACRILEX 2 MG GUM BUCCAL PRN ×2 (12:35→17:28)
[2018-07-21] MEDS: LORazepam 1 MG TAB PO PRN (13:31)
[2018-07-21] MEDS: GABAPENTIN 100 MG CAP PO SCH (20:40)
[2018-07-21] MEDS ORDERED: lamoTRIgine 25 MG TAB PO SCH (21:00)
[2018-07-21] MEDS ORDERED: PALIPERIDONE 6 MG TAB.ER.24 PO SCH (21:00)
[2018-07-22 06:35] VITALS: RESP 18
[2018-07-22] MEDS: PANTOPRAZOLE 40 MG TABLET PO SCH ×2 (08:36→16:43)
[2018-07-22] MEDS: NICOTINE POLACRILEX 2 MG GUM BUCCAL PRN ×3 (08:37→16:43)
[2018-07-22] MEDS: GABAPENTIN 100 MG CAP PO SCH (08:37)
[2018-07-22] MEDS: LISINOPRIL 5 MG TAB PO SCH (08:37)
[2018-07-22] MEDS: FERROUS SULFATE 325 MG TAB PO SCH (12:09)
[2018-07-22] MEDS: LORazepam 1 MG TAB PO PRN (13:40)
--- NOTE | 2018-07-22 13:57 | P.PN ---
Subjective Progress Note Date: 07/22/18 Principal diagnosis: schizooaffective bipolar type I fell better today. No voices. No SI/HI; rapid cycling Objective - Vital Signs Vital signs: Vital Signs Temp 98.4 F 07/22/18 06:34 Pulse 82 07/22/18 06:34 Resp 18 07/22/18 06:34 BP 114/62 07/22/18 06:34 Pulse Ox 98 07/19/18 12:28 Intake & Output 07/21/18 07/22/18 07/22/18 18:59 06:59 18:59 Weight 69.2 kg - Labs CBC & Chem 7: 07/20/18 08:09 07/20/18 08:09 Assessment and Plan Assessment: HPI:42-year-old male presents emergency Department chief complaint of depression , suicidal ideation. Patient states that he is on multiple medications by [facility] states that there are not helping at this time. He states that he needs help. He doesn't to marijuana use currently states he does have a history of drug abuse. He's had some suicidal ideation with no plan to harm himself. Denies any homicidal ideation. Denies any physical complaints. I am sad this time a year because all my family are . I have no family and I'm lonely. - Related Data Mental Status Examination - General Appearance: [ casual, appears stated age, Speech/Language: [spontaneous, slow, soft] Attitude/Behavior: [cooperative, withdrawn, indifferent] Mood: [depressed 5/10, anxious 5/10, angry, fearful, hopelessness] Affect: [ flat, incongruent, labile, blunted constricted] Orientation: [time, person, place situation] Thought Content: [wnl Risk Factors: [He does have suicidal (ideations, plan), but denies Homicidal ( ideations, plan)] Perception: [hallucinations (visual), other] Thought Processes: [ concrete, circumstantial, tangential] Concentration/Attention Span: [impaired] [Per observation and interview with the patient] Recent Memory: [wnl] [ 3 out of 3 in 3 minutes] Remote Memory: [wnl] [past events, as related history] Intelligence: [below average] [based on history, based on vocabulary, syntax, grammar, and content] Judgement: [ poor] [per patient's behavior/history of present illness] Insight: [poor] [understanding severity of illness/history of present illness] Admitting Diagnosis: [ Schizoaffective disorder; resolved marijuana cocaine and opiate use disorder] Patient Strengths - Steady employment/financial stability: [Disabled] Housing stability: [Currently at [facility]] Able to vocalize needs: [x] Patient Limitations: [medication, non-compliance, pathological/unsupported environment, Initial Plan of Care: [Due to suicidal thoughts and progressive feelings of depression he be admitted to the psychiatric unit on a voluntary basis. He also be evaluated by medicine, psychiatry, nursing staff, social work, and recreational therapy. He'll be integrated into a [facility] therapy environment and will attend groups for medication meditation education and stabilization.] Estimated Length of Stay: [2 days] Initial Discharge Plan: [[facility], [facility], referred to therapist Prognosis: [ fair] Justification for Inpatient Hospitalization - [Hallucinations, agitation, anxiety, depression resulting in significant loss of functioning.] [Dangerous to self, others, or property with need for controlled environment.] [Emotional or behavioral conditions and complications requiring 24 hour medical and nursing care.] [Need for special drug therapy, or other therapeutic program requiring continuous hospitalization.] [Failure of social or occupational functioning.] [Inability to meet basic life and health needs.] (1) Schizoaffective disorder with good prognostic features Current Visit: Yes Status: Acute Code(s): F25.9 - SCHIZOAFFECTIVE DISORDER, UNSPECIFIED SNOMED Code(s): 02070074 Plan: He will reach decreased on his gabapentin 800 mg 3 times a day to 200 mg 3 times a day today he is off his gabapentin. He also was started on Invega 9 mg mg by mouth daily at bedtime and Lamictal 75 mg mg by mouth daily at bedtime. It appears that he has a schizoaffective disorder of bipolar type and will treat him for this by using antipsychotic and a mood stabilizer. He also be weaned off his gabapentin over the next 3 days. Time with Patient: Less than 30
[2018-07-22] MEDS ORDERED: lamoTRIgine 100 MG TAB PO SCH (21:00)
[2018-07-22] MEDS ORDERED: PALIPERIDONE 3 MG TAB.ER.24 PO SCH (21:00)
[2018-07-23 06:44] VITALS: TEMP 98.2
[2018-07-23] MEDS: PANTOPRAZOLE 40 MG TABLET PO SCH (08:06)
[2018-07-23] MEDS: LISINOPRIL 5 MG TAB PO SCH (08:06)
[2018-07-23 08:07] VITALS: BP 133/77; PULSE 78
[2018-07-23] MEDS: NICOTINE POLACRILEX 2 MG GUM BUCCAL PRN (08:37)
[2018-07-23] MEDS ORDERED: PALIPERIDONE IM 234 MG/1.5 ML SYG IM STA (09:27)
--- NOTE | 2018-07-23 09:40 | P.DS ---
Providers Date of admission: 07/19/18 13:25 Expected date of discharge: 07/23/18 Attending physician: Alexis Palma DO Consults: 07/19/18 16:11 Consult Physician Routine Consulting Provider: Leonela Green Consult Reason/Comments: H & P and medical care Do you want consulting provider notified?: Already Contacted Primary care physician: Stated None - Discharge Diagnosis(es) (1) Schizoaffective disorder with good prognostic features HPI:42-year-old male presents emergency Department chief complaint of depression , suicidal ideation. Patient states that he is on multiple medications by [facility] states that there are not helping at this time. He states that he needs help. He doesn't to marijuana use currently states he does have a history of drug abuse. He's had some suicidal ideation with no plan to harm himself. Denies any homicidal ideation. Denies any physical complaints. I am sad this time a year because all my family are . I have no family and I'm lonely. Past psychiatric history: He was admitted on this unit on 02/21/2016 and was released on 02/24/2016. His admission in January was voluntary. During that admission, he presented with a report of auditory and visual hallucination. He stated that he was hearing people talking about him. He reported incidences of hallucinations in the past. When he was seen at the ER last night, he denies ever experiencing hallucinations in his life. He was not compliant with the Zyprexa that was prescribed for him when admitted on this unit in February 2016. He also reported that he was in a relationship which has gone bad over the past few weeks. During that admission, he admitted to using marijuana and LSD. When admitted in February 2016 on this unit, he stated that the reason for admission was "the same paranoid delusions and voices, I guess." He reported hearing telepathic voices and hearing what people were thinking. He was noted as very irritable and not cooperative. He wanted to make sure he was prescribed Ativan. During that admission, his aunt apparently dropped him off at the ER and he was very angry, irritable and very tense. He became angry at the emergency room during that admission. He reported high anxiety and that he was homeless at that time. He presented with suicidal thoughts. He has been admitted in this facility about 21 times not including the admission in February 2016. He has a history of medication noncompliance. His mother apparently committed suicide. He admitted to using hallucinogenic substances in the past. He reported hearing voices and seeing things in the past. He admitted to having past suicidal thoughts. He reports being diagnosed with schizophrenia. He reported being admitted in a psychiatric hospital many times in the past. He has reported hearing the voice of his mother talking to him in the past. He reported past depressive episodes. He also reported past episodes of anxiety. He has not endorsed being abused by anyone. He has been diagnosed with schizoaffective disorder, bipolar type, cannabis abuse and cocaine use. Substance abuse history: His urine drug screen on this admission is negative for the marijuana, cocaine and amphetamines. . He admits to using marijuana. He states that he uses marijuana daily because he has a marijuana card. He reports using 7-14 g marijuana at times. He states that there are times when he uses less but he uses a lot most of the time. He states that narcotics makes him rotten and mean. He reports using alcohol rarely. He states that he has no reason to go to a substance abuse program. He smokes 1 pack per day of tobacco. He states that he does not want a nicotine patch because he is ALLERGIC to patches. He requested nicotine gum. He reported a past history of mescaline and LSD abuse. Upon admission he had no marijuana no other street drugs in his urine. Current Visit: Yes Status: Chronic Priority: Low Hospital Course: Hospital course: This 42-year-old male was admitted due to psychosis and his medications not adhering him to treatment. He was withdrawn from his gabapentin over a three-day period. Started on Lamictal and titrated to 100 mg. He was also taken off of Prolixin with the addition of Invega 3, 6, 9, and converted to 234 mg Invega IM and his next dose will be due on 08/21/2019. He needed minimal amount of when necessary medications and his lab work was well within normal on admission. He is admitted in [facility] therapeutic environment he states that in an cooperate with staff and adherent to a medical treatment. He was placed on 15 minute watch throughout his hospital stay without any incident. Mental status examination time of discharge The patient presents alert, pleasant, and cooperative. There calmly seated without any agitated behavior. [He] reports that [his] mood is good. Affect is congruent and euthymic. [He] deny having any suicidal or homicidal ideation intent or plan. [He] denies any auditory or visual hallucinations. There is no evidence of any delusional thought content. [His] thought process is linear and goal-directed. [His] speech is fluent and nonpressured. [His] memory and concentration is grossly intact for the purposes of this session. Patient Condition at Discharge: Stable Plan - Discharge Summary Discharge Rx Participant: Yes New Discharge Prescriptions: New lamoTRIgine [LaMICtal] 100 mg PO 2100 30 Days #30 tab Paliperidone IM [Invega Sustenna] 234 mg IM ONCE 28 Days #1 syringe Continue Lisinopril [Zestril] 5 mg PO DAILY 30 Days #30 tab Omeprazole [PriLOSEC] 20 mg PO AC-BID 30 Days #30 capsule. Discontinued fluPHENAZine DECANOATE [Prolixin Decanoate] 50 mg IM Q14D Gabapentin 800 mg PO TID Ferrous Sulfate [Feosol] 325 mg PO DAILY Ergocalciferol (Vitamin D2) [Vitamin D2] 50,000 unit PO QMONTH Discharge Medication List Lisinopril [Zestril] 5 mg PO DAILY 30 Days #30 tab 07/23/18 [Rx] Omeprazole [PriLOSEC] 20 mg PO AC-BID 30 Days #30 capsule. 07/23/18 [Rx] Paliperidone IM [Invega Sustenna] 234 mg IM ONCE 28 Days #1 syringe 07/23/18 [Rx ] lamoTRIgine [LaMICtal] 100 mg PO 2100 30 Days #30 tab 07/23/18 [Rx] Follow up Appointment(s)/Referral(s): [facility] [Outside] - 07/29/18 1:00 pm (07-29-18 @ 1:[address] Fernandes) [facility] - 1 Week Patient Instructions/Handouts: How to Stop Smoking (GEN), Schizophrenia (GEN), Suicide Prevention (GEN) Activity/Diet/Wound Care/Special Instructions: Activity and diet as tolerated. Avoid the use of street drugs and alcohol. Take all medications as prescribed. When you are in need of refills on your medications please contact your medical provider and/or outpatient psychiatrist to have this done. Please go to scheduled outpatient appointment for aftercare treatment. If symptoms return or become worse, call the crisis line at [phone] and/or go to the nearest emergency room for evaluation. Discharge Disposition: HOME SELF-CARE
[2018-08-01] MEDS ORDERED: ERGOCALCIFEROL 50,000 UNIT CAP PO SCH (12:00)
== END 2018-07-23 10:29 | disposition home or self-care (01) | DRG 885 ==
LOC: EC 12:09 → 3MHU 13:25
PROVIDERS: ADMIT Psychiatry & Neurology Psychiatry; ATTEND Psychiatry & Neurology Psychiatry
DX: F25.0 Schizoaffective disorder, bipolar type (principal); R45.851 Suicidal ideations; F11.90 Opioid use, unspecified, uncomplicated; F12.10 Cannabis abuse, uncomplicated; F14.90 Cocaine use, unspecified, uncomplicated; F17.210 Nicotine dependence, cigarettes, uncomplicated; F41.9 Anxiety disorder, unspecified; G40.909 Epilepsy, unspecified, not intractable, without status epilepticus; I10 Essential (primary) hypertension; J44.9 Chronic obstructive pulmonary disease, unspecified; K21.9 Gastro-esophageal reflux disease without esophagitis; M41.9 Scoliosis, unspecified; Z59.0 Homelessness; Z91.14 Patient's other noncompliance with medication regimen; Z91.19 Patient's noncompliance with other medical treatment and regimen; Z79.899 Other long term (current) drug therapy; Z91.048 Other nonmedicinal substance allergy status
CPT/HCPCS: 80053; 80061; 80306; 82075; 82248; 83036; 84443; 85025; 99285

== ENCOUNTER 2018-08-14 16:28 | Inpatient (IN) | payer MEDICARE, MEDICAID ==
--- NOTE | 2018-08-15 00:26 | ED ---
Psych HPI - General Chief Complaint: Psychiatric Symptoms Stated Complaint: SUICIDAL Time Seen by Provider: 08/14/18 17:15 Source: patient, RN notes reviewed, old records reviewed Mode of arrival: ambulatory - History of Present Illness MD Complaint: suicidal ideation, feels depressed -: days(s) (20) Associated Psychiatric Symptoms: depression, suicidal ideation History of same: Yes Quality: getting worse Improves With: none Worsens With: none Context: not taking psychiatric medications Associated Symptoms: denies other symptoms Treatments Prior to Arrival: none If Self Harm: admits thoughts of self harm, has plan - Related Data Home Medications Medication Instructions Recorded Confirmed Cholecalciferol [Vitamin D3] 5,000 unit PO MOWEFR 08/14/18 08/14/18 Ferrous Sulfate [Feosol] 325 mg PO MOWEFR 08/14/18 08/14/18 Paliperidone IM [Invega Sustenna] 234 mg IM Q28D 08/14/18 08/14/18 lamoTRIgine [LaMICtal] 100 mg PO HS 08/14/18 08/14/18 Previous Rx's Medication Instructions Recorded Lisinopril [Zestril] 5 mg PO DAILY 30 Days #30 tab 07/23/18 Omeprazole [PriLOSEC] 20 mg PO AC-BID 30 Days #30 07/23/18 capsule. Allergies Allergy/AdvReac Type Severity Reaction Status Date / Time cat dander Allergy Itching Verified 07/19/18 16:34 Review of Systems ROS Statement: Those systems with pertinent positive or pertinent negative responses have been documented in the HPI. ROS Other: All systems not noted in ROS Statement are negative. Past Medical History Past Medical History: COPD, GERD/Reflux, Musculoskeletal Disorder, Seizure Disorder Additional Past Medical History / Comment(s): scoliosis, herpes, hiatal hernia, migraines History of Any Multi-Drug Resistant Organisms: None Reported Past Surgical History: No Surgical Hx Reported Additional Past Surgical History / Comment(s): EGD about 10 years ago Past Anesthesia/Blood Transfusion Reactions: No Reported Reaction Past Psychological History: Anxiety, Bipolar, Depression, Schizoaffective Disorder Smoking Status: Current every day smoker Past Alcohol Use History: Occasional Past Drug Use History: Cocaine, Heroin, IV Drug Use, Marijuana, Methamphetamine - Past Family History Mother History Unknown: Yes Father History Unknown: Yes General Exam Limitations: no limitations, altered mental status General appearance: alert, in no apparent distress Head exam: Present: atraumatic, normocephalic, normal inspection Eye exam: Present: normal appearance, PERRL, EOMI. Absent: scleral icterus, conjunctival injection, periorbital swelling ENT exam: Present: normal exam, mucous membranes moist Neck exam: Present: normal inspection. Absent: tenderness, meningismus, lymphadenopathy Respiratory exam: Present: normal lung sounds bilaterally. Absent: respiratory distress, wheezes, rales, rhonchi, stridor Cardiovascular Exam: Present: regular rate, normal rhythm, normal heart sounds. Absent: systolic murmur, diastolic murmur, rubs, gallop, clicks GI/Abdominal exam: Present: soft, normal bowel sounds. Absent: distended, tenderness, guarding, rebound, rigid Extremities exam: Present: normal inspection, full ROM, normal capillary refill. Absent: tenderness, pedal edema, joint swelling, calf tenderness Back exam: Present: normal inspection Neurological exam: Present: alert, oriented X3, CN II-XII intact Psychiatric exam: Present: normal affect, normal mood Skin exam: Present: warm, dry, intact, normal color. Absent: rash Course Vital Signs 08/14/18 16:49 Temperature 98.0 F Pulse Rate 96 Respiratory 18 Rate Blood Pressure 139/88 O2 Sat by Pulse 99 Oximetry - Reevaluation(s) Reevaluation #1: 08/15/18 00:24 medically clear for psychiatric evaluation, Disposition [facility]errals: [facility] [[facility]] - 1-2 days
[2018-08-15 05:30] LABS: Basophils # (A) 0.1 k/uL (0-0.2); Basophils % (A) 1 %; Eosinophils # (A) 0.5 k/uL (0-0.7); Eosinophils % (A) 10 %; HCT 43.5 % (39.0-53.0); HGB 14.5 gm/dL (13.0-17.5); Lymphocytes # (A) 1.4 k/uL (1.0-4.8); Lymphocytes % (A) 25 %; MCH 29.1 pg (25.0-35.0); MCHC 33.4 g/dL (31.0-37.0); MCV 87.2 fL (80.0-100.0); Mean Platelet Volume 6.8; Monocytes # (A) 0.5 k/uL (0-1.0); Monocytes % (A) 9 %; Neutrophils # (A) 2.9 k/uL (1.3-7.7); Neutrophils % (A) 53 %; Platelet Count 244 k/uL (150-450); RBC 4.99 m/uL (4.30-5.90); RDW 13.9 % (11.5-15.5); WBC 5.5 k/uL (3.8-10.6)
[2018-08-15 05:39] LABS: Acetaminophen <10.0 ug/mL; Alcohol <10 mg/dL; Anion Gap 9 mmol/L; Blood Urea Nitrogen 10 mg/dL (9-20); Calcium 9.5 mg/dL (8.4-10.2); Carbon Dioxide 26 mmol/L (22-30); Chloride 107 mmol/L (98-107); Glucose 90 mg/dL (74-99); Potassium 4.4 mmol/L (3.5-5.1); Salicylate <1.0 mg/dL; Sodium 142 mmol/L (137-145)
[2018-08-15 05:41] LABS: Amphetamine Screen,Urine Not Detected (NotDetected); Barbiturate Screen,Urine Not Detected (NotDetected); Benzodiazepines Screen,Urine Not Detected (NotDetected); Cocaine Screen,Urine Detected (NotDetected); Methadone Screen, Urine Not Detected (NotDetected); Opiate Screen,Urine Not Detected (NotDetected); Oxycodone Screen, Urine Not Detected (NotDetected); Phencyclidine Screen,Urine Not Detected (NotDetected); Tricyclic Antidepressant,Urine Not Detected (NotDetected); Urn Cannabinoid Scrn Not Detected (NotDetected)
[2018-08-15] MEDS ORDERED: MAGNESIUM HYDROXIDE 2,400 MG/10 ML CUP PO PRN (13:21)
[2018-08-15] MEDS ORDERED: MAG HYDROX/AL HYDROX/SIMETH 30 ML CUP PO PRN (13:21)
[2018-08-15 13:52] VITALS: BMI 24.2
--- NOTE | 2018-08-15 15:32 | P.CONS ---
History of Present Illness - Reason for Consult Consult date: 08/15/18 Medical management - Chief Complaint Depression - History of Present Illness This is a 42-year-old male who is currently admitted to the psych unit for further evaluation of severe depression and suicidal thoughts. Patient said that he has not been feeling well recently. He was recently discharged on the psych floor. He said that prior to presentation to the emergency room he was having thoughts to overdose on heroin. He denies using any illicit drugs otherwise. His evaluated in the emergency room and currently admitted to the psych unit. I was asked to see him for medical management. Patient himself does not have any specific concerns right now. Review of Systems Review of system: 14 points review of systems were obtained and were negative except to what were mentioned in the HPI. Past Medical History Past Medical History: GERD/Reflux, Musculoskeletal Disorder, Seizure Disorder Additional Past Medical History / Comment(s): scoliosis, herpes, hiatal hernia, migraines. last seizure unknown History of Any Multi-Drug Resistant Organisms: None Reported Past Surgical History: No Surgical Hx Reported Additional Past Surgical History / Comment(s): EGD about 10 years ago Past Anesthesia/Blood Transfusion Reactions: No Reported Reaction Smoking Status: Current every day smoker - Past Family History Mother History Unknown: Yes Father History Unknown: Yes Medications and Allergies Home Medications Medication Instructions Recorded Confirmed Type Lisinopril [Zestril] 5 mg PO DAILY 30 Days #30 tab 07/23/18 08/14/18 Rx Omeprazole [PriLOSEC] 20 mg PO AC-BID 30 Days #30 07/23/18 08/14/18 Rx capsule. Paliperidone IM [Invega Sustenna] 234 mg IM Q28D 08/14/18 08/14/18 History lamoTRIgine [LaMICtal] 100 mg PO HS 08/14/18 08/14/18 History Allergies Allergy/AdvReac Type Severity Reaction Status Date / Time cat dander Allergy Itching Verified 07/19/18 16:34 Physical Exam Vitals: Vital Signs Temp Pulse Pulse Resp BP BP Pulse Ox 08/15/18 13:43 97.1 F L 91 20 107/60 08/15/18 08:00 82 16 110/65 96 08/15/18 07:30 97.8 F 87 14 108/63 97 08/14/18 16:49 98.0 F 96 18 139/88 99 Intake and Output 08/15/18 08/15/18 08/15/18 06:59 14:59 22:59 Other: Weight 68.152 kg General: The patient is awake and alert, in no distress Eye: there is normal conjunctiva bilaterally. Neck: The neck is supple, there is no JVD. Cardiovascular: Normal S1-S2, no S3-S4, no murmurs. Respiratory: Lungs clear to auscultation bilaterally Gastrointestinal: Abdomen is soft, nontender Musculoskeletal: There is no pedal edema. Neurological:. Speech is normal. Skin: Skin is warm and dry Results CBC & Chem 7: 08/15/18 05:14 08/15/18 05:14 Labs: Abnormal Lab Results - Last 24 Hours (Table) 08/15/18 Range/Units 04:57 Urine Cocaine Screen Detected H (NotDetected) Assessment and Plan Assessment: 1. Severe depression with suicidal thoughts 2. Underlying schizoaffective disorder 3. Essential hypertension: Blood pressure within acceptable range 4. History of polysubstance abuse Today, I reviewed his medication list. Continue current regimen. Management per psychiatry. We will continue to follow up on him on as-needed basis. Thank you for the consultation
[2018-08-15] MEDS: PANTOPRAZOLE 40 MG TABLET PO SCH (17:16)
[2018-08-15] MEDS: lamoTRIgine 100 MG TAB PO SCH (22:03)
[2018-08-16] MEDS: PANTOPRAZOLE 40 MG TABLET PO SCH ×2 (07:40→16:32)
[2018-08-16] MEDS: LISINOPRIL 5 MG TAB PO SCH (07:40)
[2018-08-16] MEDS ORDERED: NICOTINE 21MG/24HR PATCH TRANSDERM SCH (09:00)
[2018-08-16] MEDS: LORazepam 1 MG TAB PO PRN ×2 (13:11→20:45)
--- NOTE | 2018-08-16 16:46 | P.HP ---
Psychiatric H&P - . H&P Date: 08/15/18 History & Physical: Allergies Allergy/AdvReac Type Severity Reaction Status Date / Time cat dander Allergy Itching Verified 07/19/18 16:34 Vital Signs Temp 97.7 F 08/16/18 06:30 Pulse 66 08/16/18 06:30 Resp 16 08/16/18 06:30 BP 131/65 08/16/18 06:30 Pulse Ox 96 08/15/18 08:00 Intake & Output 08/15/18 08/16/18 08/16/18 18:59 06:59 18:59 Weight 68.152 kg Laboratory Last Values WBC 5.5 k/uL (3.8-10.6) 08/15/18 05:14 RBC 4.99 m/uL (4.30-5.90) 08/15/18 05:14 Hgb 14.5 gm/dL (13.0-17.5) 08/15/18 05:14 Hct 43.5 % (39.0-53.0) 08/15/18 05:14 MCV 87.2 fL (80.0-100.0) 08/15/18 05:14 MCH 29.1 pg (25.0-35.0) 08/15/18 05:14 MCHC 33.4 g/dL (31.0-37.0) 08/15/18 05:14 RDW 13.9 % (11.5-15.5) 08/15/18 05:14 Plt Count 244 k/uL (150-450) 08/15/18 05:14 Neutrophils % 53 % 08/15/18 05:14 Lymphocytes % 25 % 08/15/18 05:14 Monocytes % 9 % 08/15/18 05:14 Eosinophils % 10 % 08/15/18 05:14 Basophils % 1 % 08/15/18 05:14 Neutrophils # 2.9 k/uL (1.3-7.7) 08/15/18 05:14 Lymphocytes # 1.4 k/uL (1.0-4.8) 08/15/18 05:14 Monocytes # 0.5 k/uL (0-1.0) 08/15/18 05:14 Eosinophils # 0.5 k/uL (0-0.7) 08/15/18 05:14 Basophils # 0.1 k/uL (0-0.2) 08/15/18 05:14 Sodium 142 mmol/L (137-145) 08/15/18 05:14 Potassium 4.4 mmol/L (3.5-5.1) 08/15/18 05:14 Chloride 107 mmol/L (98-107) 08/15/18 05:14 Carbon Dioxide 26 mmol/L (22-30) 08/15/18 05:14 Anion Gap 9 mmol/L 08/15/18 05:14 BUN 10 mg/dL (9-20) 08/15/18 05:14 Creatinine 0.93 mg/dL (0.66-1.25) 08/15/18 05:14 Est GFR (CKD-EPI)AfAm >90 (>60 ml/min/1.73 sqM) 08/15/18 05:14 Est GFR (CKD-EPI)NonAf >90 (>60 ml/min/1.73 sqM) 08/15/18 05:14 Glucose 90 mg/dL (74-99) 08/15/18 05:14 Calcium 9.5 mg/dL (8.4-10.2) 08/15/18 05:14 Triglycerides 103 mg/dL (<150) 08/16/18 08:56 Cholesterol 173 mg/dL (<200) 08/16/18 08:56 LDL Cholesterol, Calc 113 mg/dL (0-99) H 08/16/18 08:56 HDL Cholesterol 39 mg/dL (40-60) L 08/16/18 08:56 TSH 0.283 mIU/L (0.465-4.680) L 08/16/18 08:56 Salicylates <1.0 mg/dL 08/15/18 05:14 Urine Opiates Screen Not Detected (NotDetected) 08/15/18 04:57 Ur Oxycodone Screen Not Detected (NotDetected) 08/15/18 04:57 Urine Methadone Screen Not Detected (NotDetected) 08/15/18 04:57 Ur Propoxyphene Screen Not Detected (NotDetected) 08/15/18 04:57 Acetaminophen <10.0 ug/mL 08/15/18 05:14 Ur Barbiturates Screen Not Detected (NotDetected) 08/15/18 04:57 U Tricyclic Antidepress Not Detected (NotDetected) 08/15/18 04:57 Ur Phencyclidine Scrn Not Detected (NotDetected) 08/15/18 04:57 Ur Amphetamines Screen Not Detected (NotDetected) 08/15/18 04:57 U Methamphetamines Scrn Not Detected (NotDetected) 08/15/18 04:57 U Benzodiazepines Scrn Not Detected (NotDetected) 08/15/18 04:57 Urine Cocaine Screen Detected (NotDetected) H 08/15/18 04:57 U Marijuana (THC) Screen Not Detected (NotDetected) 08/15/18 04:57 Serum Alcohol <10 mg/dL 08/15/18 05:14 IDENTIFYING DATA: 42-year-old male patient HPI: Patient admitted to the inpatient psychiatric unit [facility] on a voluntary basis. Patient was admitted regarding concerns of thoughts of suicide. Patient states that he has been at the [facility] for many months. He says the [facility] brought him here. He admits to thoughts of suicide and relays that he will . He says that if he doesn't have a seizure he'll take himself out with heroine. He does relate he feels safe here in the hospital. He describes feeling angry and describes having thoughts of harm to multiple staff people at the [facility]. PAST PSYCHIATRIC HISTORY: Patient has had previous inpatient admissions before he has been on Zoloft in the past which he seemed to tolerate fine he makes reference to since he's been off of his medications he's been seeing spirits. He says he had one real suicide attempt where he took an overdose of Depakote. PMH: Stomach problems, heart problems, may be cancer (tumor side of spine, skin cancer back), questionable hernia or testicular cancer. Seizure disorder ALLERGIES: Cat Dander MEDICATIONS: Tylenol when necessary, Maalox when necessary, Lamictal, Zestril, Ativan when necessary, milk of magnesia when necessary, Habitrol patch, Protonix , Invega Sustenna last dose at the end of July. CHEMICAL DEPENDENCY HISTORY: Patient reports that he did do some heavy drinking in the past. His drug of choice in the past has been marijuana. He has used crack the past couple of years. He did use cocaine Brian last week. He's never been big into heroin. Says he used nightshade, it sounds like about a month ago. FAMILY PSYCHIATRIC HISTORY: None known at this time. FAMILY CHEMICAL DEPENDENCY HISTORY: No known at this time. SOCIAL HISTORY: Patient has been at the [facility] for months. MENTAL STATUS EXAM: He is alert and cooperative with the interview. His speech is fluent, not rapid or pressured. Thought processes are organized. He makes reference to seeing spirits. He admits to some ongoing thoughts of suicide and makes reference to that he will . He states that if he doesn't have a seizure he'll take himself out with heroine. He admits to thoughts of harm to 3 staff members at [facility], Darrin Field and Shilo(no last names). He denies any active intent to hurt them. We did discuss that the hospital has a duty to warn if he is having thoughts of harm to specific people. He does state that he feels safe here in the hospital. Cognitively appears to be grossly intact. STRENGTHS/WEAKNESSES: Strengths-seeking treatment, has been receiving some treatment; weaknesses-coping skills INTELLECTUAL FUNCTIONING: Average IMPRESSIONS: Schizoaffective disorder, bipolar type; history of stimulant use disorder; rule out other hallucinogen use disorder; rule out history of alcohol use disorder PLAN: Patient is admitted to the inpatient psychiatric unit [facility] on a voluntary basis. He will placed on SP 15 minute cautious. He'll participate in group and activity therapies. Baseline laboratory workup was done patient medical Kostic will be ordered. He has received his dose of Invega Sustenna at the end of July it is Q 28 days on him he will maintain Lamictal as current we will add low dose of Zoloft which she has a history of being on and tolerated well a 25 more grams daily for depressive component. We'll continue to monitor regarding any suicidal ideations. Also continue to monitor regarding any thoughts of harm to others. Duty to warn forms have been initiated, awaiting full names and correct addresses. We will look into any support systems. Estimated length of stay is 5-7 days. Prognosis is guarded. 08/16/18 16:18
[2018-08-16 17:15] LABS: Hemoglobin A1C 5.8 % (4.0-6.0)
[2018-08-16] MEDS: NICOTINE POLACRILEX 2 MG GUM BUCCAL PRN ×2 (18:35→20:46)
[2018-08-16] MEDS: lamoTRIgine 100 MG TAB PO SCH (20:10)
[2018-08-17] MEDS: LISINOPRIL 5 MG TAB PO SCH (08:03)
[2018-08-17] MEDS: SERTRALINE 25 MG TAB PO SCH (08:04)
[2018-08-17] MEDS: PANTOPRAZOLE 40 MG TABLET PO SCH ×2 (08:04→15:40)
[2018-08-17] MEDS: NICOTINE POLACRILEX 2 MG GUM BUCCAL PRN ×4 (13:28→20:12)
[2018-08-17] MEDS: LORazepam 1 MG TAB PO PRN (15:44)
--- NOTE | 2018-08-17 16:18 | P.PN ---
Progress Note - Text Progress Note Date: 08/17/18 Interval history: Patient seen in [facility] today again. He does not voice any adverse side effects with the Zoloft. He states he was up 200 mg in the past. He has been getting some sleep. He makes reference that he called and left a message for [employer]. He relates that he is not having any thoughts of harm to others today. He reports that he still has thoughts of wanting to but is doing better in terms of thoughts of suicide. Mental status exam: He is alert and cooperative with the interview. His affect does show some range. He does seem to have better mood today. He does not show any significant agitation. He denies any thoughts of harm to others today. He reports that he still have thoughts of wanting to but he is doing better in terms of thoughts of suicide. He does not seem show any active evidence of psychosis. Plan: Patient will be maintained on current psychotropic medication regimen. Continue to monitor for any medication side effects monitor his ongoing response to treatment. Continue to monitor regarding any thoughts of harm to self or others.
[2018-08-17] MEDS: lamoTRIgine 100 MG TAB PO SCH (20:10)
[2018-08-18 06:45] VITALS: RESP 16
[2018-08-18] MEDS: LISINOPRIL 5 MG TAB PO SCH (09:34)
[2018-08-18] MEDS: PANTOPRAZOLE 40 MG TABLET PO SCH ×2 (09:35→18:01)
[2018-08-18] MEDS: SERTRALINE 25 MG TAB PO SCH (09:35)
--- NOTE | 2018-08-18 10:21 | P.PN ---
Subjective Progress Note Date: 08/18/18 Principal diagnosis: depression and suicidal Patient admitted to the inpatient psychiatric unit [facility] on a voluntary basis. Patient was admitted regarding concerns of thoughts of suicide. Objective - Vital Signs Vital signs: Vital Signs Temp 97.6 F 08/18/18 06:39 Pulse 73 08/18/18 06:39 Resp 16 08/18/18 06:39 BP 115/62 08/18/18 06:39 Pulse Ox 96 08/15/18 08:00 Intake & Output 08/17/18 08/18/18 08/18/18 18:59 06:59 18:59 Weight 69.8 kg - Labs CBC & Chem 7: 08/15/18 05:14 08/15/18 05:14 Assessment and Plan Assessment: Patient admitted to the inpatient psychiatric unit [facility] on a voluntary basis. Patient was admitted regarding concerns of thoughts of suicide. Patient states that he has been at the [facility] for many months. He says the [facility] brought him here. He admits to thoughts of suicide and relays that he will . He says that if he doesn't have a seizure he'll take himself out with heroine. He does relate he feels safe here in the hospital. He describes feeling angry and describes having thoughts of harm to multiple staff people at the [facility]. PAST PSYCHIATRIC HISTORY: Patient has had previous inpatient admissions before he has been on Zoloft in the past which he seemed to tolerate fine he makes reference to since he's been off of his medications he's been seeing spirits. He says he had one real suicide attempt where he took an overdose of Depakote. PMH: Stomach problems, heart problems, may be cancer (tumor side of spine, skin cancer back), questionable hernia or testicular cancer. Seizure disorder ALLERGIES: Cat Dander MEDICATIONS: Tylenol when necessary, Maalox when necessary, Lamictal, Zestril, Ativan when necessary, milk of magnesia when necessary, Habitrol patch, Protonix , Invega Sustenna last dose at the end of July. CHEMICAL DEPENDENCY HISTORY: Patient reports that he did do some heavy drinking in the past. His drug of choice in the past has been marijuana. He has used crack the past couple of years. He did use cocaine Saturday last week. He's never been big into heroin. Says he used nightshade, it sounds like about a month ago. FAMILY PSYCHIATRIC HISTORY: None known at this time. FAMILY CHEMICAL DEPENDENCY HISTORY: No known at this time. SOCIAL HISTORY: Patient has been at the [facility] for months. MENTAL STATUS EXAM: He is alert and cooperative with the interview. His speech is fluent, not rapid or pressured. Thought processes are organized. He makes reference to seeing spirits. He admits to some ongoing thoughts of suicide and makes reference to that he will . He states that if he doesn't have a seizure he'll take himself out with heroine. He admits to thoughts of harm to 3 staff members at [facility], Raffy Canales, Darrin and Shilo(no last names). He denies any active intent to hurt them. We did discuss that the hospital has a duty to warn if he is having thoughts of harm to specific people. He does state that he feels safe here in the hospital. Cognitively appears to be grossly intact. STRENGTHS/WEAKNESSES: Strengths-seeking treatment, has been receiving some treatment; weaknesses-coping skills INTELLECTUAL FUNCTIONING: Average IMPRESSIONS: Schizoaffective disorder, bipolar type; history of stimulant use disorder; rule out other hallucinogen use disorder; rule out history of alcohol use disorder PLAN: Patient was admitted to the inpatient psychiatric unit [facility] on a voluntary basis. He will placed on SP 15 minute cautious. He'll participate in group and activity therapies. Baseline laboratory workup was done patient medical Kostic will be ordered. He has received his dose of Invega Sustenna at the end of July it is Q 28 days on him he will maintain Lamictal as current we will add low dose of Zoloft which he has a history of being on and tolerated well a 25 more grams daily for depressive component. We'll continue to monitor regarding any suicidal ideation. Also continue to monitor regarding any thoughts of harm to others. Duty to warn forms have been initiated, awaiting full names and correct addresses. We will look into any support systems. Estimated length of stay is 5-7 days. Prognosis is guarded. (1) Depression Current Visit: No Status: Chronic Code(s): F32.9 - MAJOR DEPRESSIVE DISORDER , SINGLE EPISODE, UNSPECIFIED SNOMED Code(s): 58436840 Plan: Zoloft 25 mg by mouth daily at bedtime, increase Lamictal to 200 mg by mouth daily at bedtime and evaluate when IM medicine Invega is due. Time with Patient: Less than 30
[2018-08-18] MEDS: NICOTINE POLACRILEX 2 MG GUM BUCCAL PRN ×2 (13:51→20:38)
[2018-08-18] MEDS: LORazepam 1 MG TAB PO PRN (20:39)
[2018-08-18] MEDS: lamoTRIgine 100 MG TAB PO SCH (20:39)
[2018-08-18] MEDS: ACETAMINOPHEN TAB 325 MG TAB PO PRN (22:06)
[2018-08-19] MEDS: PANTOPRAZOLE 40 MG TABLET PO SCH ×2 (08:24→17:36)
[2018-08-19] MEDS: SERTRALINE 25 MG TAB PO SCH (08:24)
[2018-08-19] MEDS: LISINOPRIL 5 MG TAB PO SCH (08:25)
--- NOTE | 2018-08-19 10:00 | P.PN ---
Subjective Progress Note Date: 08/19/18 Principal diagnosis: depression and suicidal Patient admitted to the inpatient psychiatric unit [facility] on a voluntary basis. Patient was admitted regarding concerns of thoughts of suicide. Objective - Vital Signs Vital signs: Vital Signs Temp 97.6 F 08/19/18 06:38 Pulse 73 08/19/18 06:38 Resp 16 08/19/18 06:38 BP 115/74 08/19/18 06:38 Pulse Ox 96 08/15/18 08:00 - Labs CBC & Chem 7: 08/15/18 05:14 08/15/18 05:14 Assessment and Plan Assessment: Patient admitted to the inpatient psychiatric unit [facility] on a voluntary basis. Patient was admitted regarding concerns of thoughts of suicide. Patient states that he has been at the [facility] for many months. He says the [facility] brought him here. He admits to thoughts of suicide and relays that he will . He says that if he doesn't have a seizure he'll take himself out with heroine. He does relate he feels safe here in the hospital. He describes feeling angry and describes having thoughts of harm to multiple staff people at the [facility]. PAST PSYCHIATRIC HISTORY: Patient has had previous inpatient admissions before he has been on Zoloft in the past which he seemed to tolerate fine he makes reference to since he's been off of his medications he's been seeing spirits. He says he had one real suicide attempt where he took an overdose of Depakote. PMH: Stomach problems, heart problems, may be cancer (tumor side of spine, skin cancer back), questionable hernia or testicular cancer. Seizure disorder ALLERGIES: Cat Dander MEDICATIONS: Tylenol when necessary, Maalox when necessary, Lamictal, Zestril, Ativan when necessary, milk of magnesia when necessary, Habitrol patch, Protonix , Invega Sustenna last dose at the end of July. CHEMICAL DEPENDENCY HISTORY: Patient reports that he did do some heavy drinking in the past. His drug of choice in the past has been marijuana. He has used crack the past couple of years. He did use cocaine Saturday last week. He's never been big into heroin. Says he used nightshade, it sounds like about a month ago. FAMILY PSYCHIATRIC HISTORY: None known at this time. FAMILY CHEMICAL DEPENDENCY HISTORY: No known at this time. SOCIAL HISTORY: Patient has been at the [facility] for months. MENTAL STATUS EXAM: He is alert and cooperative with the interview. His speech is fluent, not rapid or pressured. Thought processes are organized. He makes reference to seeing spirits. He admits to some ongoing thoughts of suicide and makes reference to that he will . He states that if he doesn't have a seizure he'll take himself out with heroine. He admits to thoughts of harm to 3 staff members at [facility], Raffy Canales, Darrin and Shilo(no last names). He denies any active intent to hurt them. We did discuss that the hospital has a duty to warn if he is having thoughts of harm to specific people. He does state that he feels safe here in the hospital. Cognitively appears to be grossly intact. STRENGTHS/WEAKNESSES: Strengths-seeking treatment, has been receiving some treatment; weaknesses-coping skills INTELLECTUAL FUNCTIONING: Average IMPRESSIONS: Schizoaffective disorder, bipolar type; history of stimulant use disorder; rule out other hallucinogen use disorder; rule out history of alcohol use disorder PLAN: Patient was admitted to the inpatient psychiatric unit [facility] on a voluntary basis. He will placed on SP 15 minute cautious. He'll participate in group and activity therapies. Baseline laboratory workup was done patient medical Kostich will be ordered. He has received his dose of Invega Sustenna at the end of July it is Q 28 days on him he will maintain Lamictal as current we will add low dose of Zoloft which he has a history of being on and tolerated well a 25 more grams daily for depressive component. We'll continue to monitor regarding any suicidal ideation. Also continue to monitor regarding any thoughts of harm to others. Duty to warn forms have been initiated, awaiting full names and correct addresses. We will look into any support systems. Estimated length of stay is 5-7 days. Prognosis is guarded. (1) Depression Current Visit: No Status: Chronic Code(s): F32.9 - MAJOR DEPRESSIVE DISORDER , SINGLE EPISODE, UNSPECIFIED SNOMED Code(s): 48891581 Plan: Zoloft 50 mg by mouth daily at bedtime, increase Lamictal to 200 mg by mouth daily at bedtime and evaluate when IM medicine Invega is due. Time with Patient: Less than 30
[2018-08-19] MEDS: NICOTINE POLACRILEX 2 MG GUM BUCCAL PRN ×3 (17:37→21:43)
[2018-08-19] MEDS: lamoTRIgine 100 MG TAB PO SCH (19:52)
[2018-08-19] MEDS: ACETAMINOPHEN TAB 325 MG TAB PO PRN (19:52)
[2018-08-19] MEDS ORDERED: SERTRALINE 50 MG TAB PO SCH (21:00)
[2018-08-20 07:04] VITALS: BP 122/56; PULSE 61; TEMP 97.5
[2018-08-20] MEDS: PANTOPRAZOLE 40 MG TABLET PO SCH (07:45)
[2018-08-20] MEDS: LISINOPRIL 5 MG TAB PO SCH (07:45)
[2018-08-20] MEDS ORDERED: PALIPERIDONE IM 234 MG/1.5 ML SYG IM STA (09:11)
--- NOTE | 2018-08-20 09:27 | P.DS ---
Providers Date of admission: 08/15/18 13:14 Expected date of discharge: 08/20/18 Attending physician: Alexis Palma DO Consults: 08/15/18 13:25 Consult Physician Routine Consulting Provider: Frandy Bolaños Consult Reason/Comments: H and P Do you want consulting provider notified?: Yes Primary care physician: [facility] - Discharge Diagnosis(es) (1) Depression IDENTIFYING DATA: 42-year-old male patient HPI: Patient admitted to the inpatient psychiatric unit [facility] on a voluntary basis. Patient was admitted regarding concerns of thoughts of suicide. Patient states that he has been at the [facility] for many months. He says the [facility] brought him here. He admits to thoughts of suicide and relays that he will . He says that if he doesn't have a seizure he'll take himself out with heroine. He does relate he feels safe here in the hospital. He describes feeling angry and describes having thoughts of harm to multiple staff people at the [facility]. PAST PSYCHIATRIC HISTORY: Patient has had previous inpatient admissions before he has been on Zoloft in the past which he seemed to tolerate fine he makes reference to since he's been off of his medications he's been seeing spirits. He says he had one real suicide attempt where he took an overdose of Depakote. PMH: Stomach problems, heart problems, may be cancer (tumor side of spine, skin cancer back), questionable hernia or testicular cancer. Seizure disorder ALLERGIES: Cat Dander MEDICATIONS: Tylenol when necessary, Maalox when necessary, Lamictal, Zestril, Ativan when necessary, milk of magnesia when necessary, Habitrol patch, Protonix , Invega Sustenna last dose at the end of July. CHEMICAL DEPENDENCY HISTORY: Patient reports that he did do some heavy drinking in the past. His drug of choice in the past has been marijuana. He has used crack the past couple of years. He did use cocaine Saturday last week. He's never been big into heroin. Says he used nightshade, it sounds like about a month ago. On this admission he came in positive for cocaine. FAMILY PSYCHIATRIC HISTORY: None known at this time. FAMILY CHEMICAL DEPENDENCY HISTORY: No known at this time. SOCIAL HISTORY: Patient has been at the [facility] for months Allergies Allergy/AdvReac Type Severity Reaction Status Date / Time cat dander Allergy Itching Verified 07/19/18 16:34 Vital Signs Temp 97.7 F 08/16/18 06:30 Pulse 66 08/16/18 06:30 Resp 16 08/16/18 06:30 BP 131/65 08/16/18 06:30 Pulse Ox 96 08/15/18 08:00 Intake & Output 08/15/18 08/16/18 08/16/18 18:59 06:59 18:59 Weight 68.152 kg Laboratory Last Values WBC 5.5 k/uL (3.8-10.6) 08/15/18 05:14 RBC 4.99 m/uL (4.30-5.90) 08/15/18 05:14 Hgb 14.5 gm/dL (13.0-17.5) 08/15/18 05:14 Hct 43.5 % (39.0-53.0) 08/15/18 05:14 MCV 87.2 fL (80.0-100.0) 08/15/18 05:14 MCH 29.1 pg (25.0-35.0) 08/15/18 05:14 MCHC 33.4 g/dL (31.0-37.0) 08/15/18 05:14 RDW 13.9 % (11.5-15.5) 08/15/18 05:14 Plt Count 244 k/uL (150-450) 08/15/18 05:14 Neutrophils % 53 % 08/15/18 05:14 Lymphocytes % 25 % 08/15/18 05:14 Monocytes % 9 % 08/15/18 05:14 Eosinophils % 10 % 08/15/18 05:14 Basophils % 1 % 08/15/18 05:14 Neutrophils # 2.9 k/uL (1.3-7.7) 08/15/18 05:14 Lymphocytes # 1.4 k/uL (1.0-4.8) 08/15/18 05:14 Monocytes # 0.5 k/uL (0-1.0) 08/15/18 05:14 Eosinophils # 0.5 k/uL (0-0.7) 08/15/18 05:14 Basophils # 0.1 k/uL (0-0.2) 08/15/18 05:14 Sodium 142 mmol/L (137-145) 08/15/18 05:14 Potassium 4.4 mmol/L (3.5-5.1) 08/15/18 05:14 Chloride 107 mmol/L (98-107) 08/15/18 05:14 Carbon Dioxide 26 mmol/L (22-30) 08/15/18 05:14 Anion Gap 9 mmol/L 08/15/18 05:14 BUN 10 mg/dL (9-20) 08/15/18 05:14 Creatinine 0.93 mg/dL (0.66-1.25) 08/15/18 05:14 Est GFR (CKD-EPI)AfAm >90 (>60 ml/min/1.73 sqM) 08/15/18 05:14 Est GFR (CKD-EPI)NonAf >90 (>60 ml/min/1.73 sqM) 08/15/18 05:14 Glucose 90 mg/dL (74-99) 08/15/18 05:14 Calcium 9.5 mg/dL (8.4-10.2) 08/15/18 05:14 Triglycerides 103 mg/dL (<150) 08/16/18 08:56 Cholesterol 173 mg/dL (<200) 08/16/18 08:56 LDL Cholesterol, Calc 113 mg/dL (0-99) H 08/16/18 08:56 HDL Cholesterol 39 mg/dL (40-60) L 08/16/18 08:56 TSH 0.283 mIU/L (0.465-4.680) L 08/16/18 08:56 Salicylates <1.0 mg/dL 08/15/18 05:14 Urine Opiates Screen Not Detected (NotDetected) 08/15/18 04:57 Ur Oxycodone Screen Not Detected (NotDetected) 08/15/18 04:57 Urine Methadone Screen Not Detected (NotDetected) 08/15/18 04:57 Ur Propoxyphene Screen Not Detected (NotDetected) 08/15/18 04:57 Acetaminophen <10.0 ug/mL 08/15/18 05:14 Ur Barbiturates Screen Not Detected (NotDetected) 08/15/18 04:57 U Tricyclic Antidepress Not Detected (NotDetected) 08/15/18 04:57 Ur Phencyclidine Scrn Not Detected (NotDetected) 08/15/18 04:57 Ur Amphetamines Screen Not Detected (NotDetected) 08/15/18 04:57 U Methamphetamines Scrn Not Detected (NotDetected) 08/15/18 04:57 U Benzodiazepines Scrn Not Detected (NotDetected) 08/15/18 04:57 Urine Cocaine Screen Detected (NotDetected) H 08/15/18 04:57 U Marijuana (THC) Screen Not Detected (NotDetected) 08/15/18 04:57 Serum Alcohol <10 mg/dL 08/15/18 05:14 Current Visit: No Status: Chronic Priority: Low Hospital Course: PLAN: Patient was admitted to the inpatient psychiatric unit [facility] on a voluntary basis. He will placed on SP 15 minute cautious. He'll participate in group and activity therapies. Baseline laboratory workup was done patient medical Kostic will be ordered. He has received his dose of Invega Sustenna 234 mg on 08/20/2018 it is Q 28 days on him he will maintain Lamictal as current we will add low dose of Zoloft which she has a history of being on and tolerated well a 25 more grams daily for depressive component. We'll continue to monitor regarding any suicidal ideations. Also continue to monitor regarding any thoughts of harm to others. Duty to warn forms have been initiated, awaiting full names and correct addresses. He is going to intermediate due to his failure to stay clean since he was court order. Mental status examination at time of discharge: The patient presents alert, pleasant, and cooperative. There calmly seated without any agitated behavior. [he] reports that [his] mood is good. Affect is congruent and euthymic. [he] deny having any suicidal or homicidal ideation intent or plan. [he] denies any auditory or visual hallucinations. There is no evidence of any delusional thought content. [his] thought process is linear and goal-directed. [his] speech is fluent and nonpressured. [his] memory and concentration is grossly intact for the purposes of this session. Medications at discharge are as follows: Invega 234 mg IM today not due to should be 09/18/2018 Discharge Medication List Lisinopril [Zestril] 5 mg PO DAILY 30 Days #30 tab 07/23/18 [Rx] Omeprazole [PriLOSEC] 20 mg PO AC-BID 30 Days #30 capsule. 07/23/18 [Rx] Paliperidone IM [Invega Sustenna] 234 mg IM Q28D 08/14/18 [History] lamoTRIgine [LaMICtal] 100 mg PO HS 08/14/18 [History] Patient Condition at Discharge: Stable Plan - Discharge Summary Discharge Rx Participant: No New Discharge Prescriptions: New lamoTRIgine [LaMICtal] 200 mg PO 2100 30 Days #60 tab Sertraline [Zoloft] 50 mg PO 2100 30 Days #30 tab Continue Omeprazole [PriLOSEC] 20 mg PO AC-BID 30 Days #30 capsule. Lisinopril [Zestril] 5 mg PO DAILY 30 Days #30 tab Paliperidone IM [Invega Sustenna] 234 mg IM Q28D 28 Days #1 syringe Discontinued lamoTRIgine [LaMICtal] 100 mg PO HS Discharge Medication List Omeprazole [PriLOSEC] 20 mg PO AC-BID 30 Days #30 capsule. 07/23/18 [Rx] Lisinopril [Zestril] 5 mg PO DAILY 30 Days #30 tab 08/20/18 [Rx] Paliperidone IM [Invega Sustenna] 234 mg IM Q28D 28 Days #1 syringe 08/20/18 [Rx ] Sertraline [Zoloft] 50 mg PO 2100 30 Days #30 tab 08/20/18 [Rx] lamoTRIgine [LaMICtal] 200 mg PO 2100 30 Days #60 tab 08/20/18 [Rx] Follow up Appointment(s)/Referral(s): [facility] [Primary Care Provider] - 1-2 days Patient Instructions/Handouts: Depression (GEN), Suicide Prevention (GEN) Activity/Diet/Wound Care/Special Instructions: Activity and diet as tolerated. Avoid the use of street drugs and alcohol. Take all medications as prescribed. When you are in need of refills on your medications please contact your medical provider and/or outpatient psychiatrist to have this done. Please go to scheduled outpatient appointment for aftercare treatment. If symptoms return or become worse, call the crisis line at [phone] and/or go to the nearest emergency room for evaluation. Discharge Disposition: DC/TRANSFER COURT/LAW
[2018-08-20] MEDS: NICOTINE POLACRILEX 2 MG GUM BUCCAL PRN (13:57)
== END 2018-08-20 14:32 | DRG 881 ==
LOC: EC 16:28 → 3MHU 08-15 13:14
PROVIDERS: ADMIT Psychiatry & Neurology Psychiatry; ATTEND Psychiatry & Neurology Psychiatry
DX: F32.9 Major depressive disorder, single episode, unspecified (principal); R45.851 Suicidal ideations; F17.200 Nicotine dependence, unspecified, uncomplicated; G40.909 Epilepsy, unspecified, not intractable, without status epilepticus; I10 Essential (primary) hypertension; J44.9 Chronic obstructive pulmonary disease, unspecified; K21.9 Gastro-esophageal reflux disease without esophagitis; M41.9 Scoliosis, unspecified; F41.9 Anxiety disorder, unspecified; G43.909 Migraine, unspecified, not intractable, without status migrainosus; K44.9 Diaphragmatic hernia without obstruction or gangrene; Z79.899 Other long term (current) drug therapy; Z91.5 Personal history of self-harm; Z91.14 Patient's other noncompliance with medication regimen
CPT/HCPCS: 36415; 80048; 80061; 80175; 80306; 80320; 82075; 83036; 83520; 84443; 85025; 99285

== ENCOUNTER 2018-10-18 13:40 | Inpatient (IN) | payer MEDICARE, MEDICAID ==
--- NOTE | 2018-10-18 14:18 | ED ---
Psych HPI - General Chief Complaint: Psychiatric Symptoms Stated Complaint: Mental Health Time Seen by Provider: 10/18/18 14:00 Source: patient, RN notes reviewed Mode of arrival: ambulatory Limitations: no limitations - History of Present Illness Initial Comments: 42-year-old male presents emergency Department chief complaint of feeling paranoid, delusional thoughts. Patient states that he does have a history of schizophrenia taking his medications. Patient does admit that he's been using crystal meth. Patient states that he got wrapped up into a bad situation where he is living. He denies being suicidal or homicidal. Denies any alcohol use. Patient has no physical complaints. Patient offers no other associated symptoms - Related Data Home Medications Medication Instructions Recorded Confirmed Cholecalciferol [Vitamin D3] 5,000 unit PO DAILY 10/18/18 10/18/18 Sertraline [Zoloft] 100 mg PO HS@2100 10/18/18 10/18/18 lamoTRIgine [LaMICtal] 200 mg PO HS@2100 10/18/18 10/18/18 Previous Rx's Medication Instructions Recorded Omeprazole [PriLOSEC] 20 mg PO AC-BID 30 Days #30 07/23/18 capsule. Lisinopril [Zestril] 5 mg PO DAILY 30 Days #30 tab 08/20/18 Paliperidone IM [Invega Sustenna] 234 mg IM Q28D 28 Days #1 syringe 08/20/18 Allergies Allergy/AdvReac Type Severity Reaction Status Date / Time cat dander Allergy Itching Verified 10/18/18 14:02 Review of Systems ROS Statement: Those systems with pertinent positive or pertinent negative responses have been documented in the HPI. ROS Other: All systems not noted in ROS Statement are negative. Past Medical History Past Medical History: COPD, GERD/Reflux, Musculoskeletal Disorder, Seizure Disorder Additional Past Medical History / Comment(s): scoliosis, herpes, hiatal hernia, migraines History of Any Multi-Drug Resistant Organisms: None Reported Past Surgical History: No Surgical Hx Reported Additional Past Surgical History / Comment(s): EGD about 10 years ago Past Anesthesia/Blood Transfusion Reactions: No Reported Reaction Past Psychological History: Anxiety, Bipolar, Depression, Schizoaffective Disorder Smoking Status: Current every day smoker Past Alcohol Use History: Occasional Past Drug Use History: Cocaine, Heroin, IV Drug Use, Marijuana, Methamphetamine - Past Family History Mother History Unknown: Yes Father History Unknown: Yes General Exam Limitations: no limitations General appearance: alert, in no apparent distress, anxious Head exam: Present: atraumatic, normocephalic, normal inspection Eye exam: Present: normal appearance, PERRL, EOMI. Absent: scleral icterus, conjunctival injection, periorbital swelling ENT exam: Present: normal exam, normal oropharynx, mucous membranes moist Neck exam: Present: normal inspection, full ROM. Absent: tenderness, meningismus, lymphadenopathy Respiratory exam: Present: normal lung sounds bilaterally. Absent: respiratory distress, wheezes, rales, rhonchi, stridor Cardiovascular Exam: Present: regular rate, normal rhythm, normal heart sounds. Absent: systolic murmur, diastolic murmur, rubs, gallop, clicks Neurological exam: Present: alert, oriented X3, CN II-XII intact Psychiatric exam: Present: anxious Course Vital Signs 10/18/18 13:48 Temperature 98.0 F Pulse Rate 98 Respiratory 18 Rate Blood Pressure 132/85 O2 Sat by Pulse 96 Oximetry Medical Decision Making - Lab Data Lab Results 10/18/18 Range/Units 14:56 Urine Opiates Screen Not Detected (NotDetected) Ur Oxycodone Screen Not Detected (NotDetected) Urine Methadone Screen Not Detected (NotDetected) Ur Propoxyphene Screen Not Detected (NotDetected) Ur Barbiturates Screen Detected H (NotDetected) U Tricyclic Antidepress Not Detected (NotDetected) Ur Phencyclidine Scrn Not Detected (NotDetected) Ur Amphetamines Screen Detected H (NotDetected) U Methamphetamines Scrn Detected H (NotDetected) U Benzodiazepines Scrn Not Detected (NotDetected) Urine Cocaine Screen Detected H (NotDetected) U Marijuana (THC) Screen Detected H (NotDetected) Disposition Clinical Impression: Chronic schizophrenia, Polysubstance abuse Disposition: TRANSFER TO PSYCH HOSP/UNIT Referrals: [facility] [Primary Care Provider] - 1-2 days
[2018-10-18 15:22] LABS: Amphetamine Screen,Urine Detected (NotDetected); Barbiturate Screen,Urine Detected (NotDetected); Benzodiazepines Screen,Urine Not Detected (NotDetected); Cocaine Screen,Urine Detected (NotDetected); Methadone Screen, Urine Not Detected (NotDetected); Opiate Screen,Urine Not Detected (NotDetected); Oxycodone Screen, Urine Not Detected (NotDetected); Phencyclidine Screen,Urine Not Detected (NotDetected); Tricyclic Antidepressant,Urine Not Detected (NotDetected); Urn Cannabinoid Scrn Detected (NotDetected)
[2018-10-18] MEDS ORDERED: MAGNESIUM HYDROXIDE 2,400 MG/10 ML CUP PO PRN (16:30)
[2018-10-18] MEDS ORDERED: MAG HYDROX/AL HYDROX/SIMETH 30 ML CUP PO PRN (16:30)
[2018-10-18] MEDS ORDERED: ACETAMINOPHEN TAB 325 MG TAB PO PRN (16:30)
[2018-10-18] MEDS ORDERED: LORazepam 1 MG TAB PO PRN (16:30)
[2018-10-18] MEDS ORDERED: ZIPRASIDONE 20 MG VIAL IM PRN (16:30)
[2018-10-18] MEDS: PANTOPRAZOLE 40 MG TABLET PO SCH (17:32)
[2018-10-18 18:08] VITALS: BMI 24.5
[2018-10-19] MEDS: CHOLECALCIFEROL 1,000 UNIT TAB PO SCH (08:50)
[2018-10-19] MEDS: PANTOPRAZOLE 40 MG TABLET PO SCH (08:50)
[2018-10-19] MEDS: LISINOPRIL 5 MG TAB PO SCH (08:51)
[2018-10-19] MEDS ORDERED: NICOTINE 14MG/24HR PATCH TRANSDERM SCH (09:00)
--- NOTE | 2018-10-19 13:05 | P.HP ---
Psychiatric H&P - . H&P Date: 10/19/18 History & Physical: Allergies Allergy/AdvReac Type Severity Reaction Status Date / Time cat dander Allergy Itching Verified 10/18/18 14:02 Vital Signs Temp 97.6 F 10/19/18 07:04 Pulse 120 H 10/19/18 08:52 Resp 18 10/19/18 08:52 BP 106/55 10/19/18 08:52 Pulse Ox 96 10/18/18 18:02 Intake & Output 10/18/18 10/19/18 10/19/18 18:59 06:59 18:59 Weight 68.8 kg Laboratory Last Values Urine Opiates Screen Not Detected (NotDetected) 10/18/18 14:56 Ur Oxycodone Screen Not Detected (NotDetected) 10/18/18 14:56 Urine Methadone Screen Not Detected (NotDetected) 10/18/18 14:56 Ur Propoxyphene Screen Not Detected (NotDetected) 10/18/18 14:56 Ur Barbiturates Screen Detected (NotDetected) H 10/18/18 14:56 U Tricyclic Antidepress Not Detected (NotDetected) 10/18/18 14:56 Ur Phencyclidine Scrn Not Detected (NotDetected) 10/18/18 14:56 Ur Amphetamines Screen Detected (NotDetected) H 10/18/18 14:56 U Methamphetamines Scrn Detected (NotDetected) H 10/18/18 14:56 U Benzodiazepines Scrn Not Detected (NotDetected) 10/18/18 14:56 Urine Cocaine Screen Detected (NotDetected) H 10/18/18 14:56 U Marijuana (THC) Screen Detected (NotDetected) H 10/18/18 14:56 10/19/18 13:01 Chief Complaint: Suicidal ideation and worsening psychoses HPI: Mr. Sherwood is 42 yo single male admitted here from ER secondary to worsening psychoses and suicidal ideation. Reportedly he had fight with his friend and he got very mad and started getting angry and agitated. Threatened to hurt himself and started having paranoid delusions. He also relapsed to cocaine. He just received Invega sustenna and been taking Lamictal and Zoloft. He endorses severe anhedonia, irritability, paranoia, worsening anxiety, feeling hopeless and helpless and having recurrent thoughts of self harm Past Psych Hx : Schizoaffective Disorder Substance Use Hx : H/o cocaine use. Social Hx : Homeless MSE : . Alert, awake, interactive. Poor eye contact. Speech few words. Mood dysphoric and anxious. Denies having any auditory and visual hallucinations. Has paranoid delusion. Denies any suicidal ideation. Insight and judgment impaired. Plan : Schizoaffective Disorder, depressed type Will resume and adjust medications accordingly
--- NOTE | 2018-10-19 13:34 | P.CON ---
Consult Note - . Consult date: 10/19/18 Assessment/Plan:: Reason for consultation-medical management History of present illness Very pleasant 39-year-old gentleman with past medical history significant for drug abuse has been admitted to psych service for suicidal ideation. Apparently the patient had a fight with a friend got angry. He also started to hurt himself. The patient has been taking cocaine. He otherwise does not complain of any chest pain or racing heart, no cough no shortness breath, abdominal pain, nausea and vomiting, or diarrhea constipation, no tingling numbness of the 70s, and additional rest. He says that he is little bit lightheaded because of he has not eaten and he wants to eat lunch. He does not complain of any itch or rash. Past medical history - schizoaffective disorder - History of polysubstance abuse - COPD - GERD Past surgical history - Nothing significant Social history - Smokes every day, no history of solution manager use but admits to using cocaine and marijuana Family history - Noncontributory Physical exam Vitals-temperature 97.6 pulse 70 respirations 16 blood pressure 113/57 satting 99% on room air HEENT-head atraumatic normocephalic, PERRLA no pallor or icterus. Throat-no erythema, no exudates Neck-no JVD, no neck nodes enlargement, no thyroid enlargement CVS-S1-S2 positive Respiration-normal bowel sounds heard equally both sides, no rhonchi, no rubs, no rales, no wheezing Abdomen- soft nontender bowel sounds present neuro-patient is alert oriented 3, tenderness to 12 intact reflexes 2 positive all extremities, strength 5/5 extremities. Impression - Suicide intent - Schizoeffective disorder Plan - The patient is admitted to psych floor - Will continue to monitor the patient - Continue the current medical management - Will continue to monitor the patient.
--- NOTE | 2018-10-19 13:35 | P.HPIM ---
Past Medical History Past Medical History: COPD, GERD/Reflux, Musculoskeletal Disorder, Seizure Disorder Additional Past Medical History / Comment(s): scoliosis, herpes, hiatal hernia, migraines History of Any Multi-Drug Resistant Organisms: None Reported Past Surgical History: No Surgical Hx Reported Additional Past Surgical History / Comment(s): EGD about 10 years ago Past Anesthesia/Blood Transfusion Reactions: No Reported Reaction Smoking Status: Current every day smoker - Past Family History Mother History Unknown: Yes Father History Unknown: Yes Medications and Allergies Home Medications Medication Instructions Recorded Confirmed Type Omeprazole [PriLOSEC] 20 mg PO AC-BID 30 Days #30 07/23/18 10/18/18 Rx capsule. Lisinopril [Zestril] 5 mg PO DAILY 30 Days #30 tab 08/20/18 10/18/18 Rx Paliperidone IM [Invega Sustenna] 234 mg IM Q28D 28 Days #1 syringe 08/20/18 Rx Cholecalciferol [Vitamin D3] 5,000 unit PO DAILY 10/18/18 10/18/18 History Sertraline [Zoloft] 100 mg PO HS@2100 10/18/18 10/18/18 History lamoTRIgine [LaMICtal] 200 mg PO HS@2100 10/18/18 10/18/18 History Allergies Allergy/AdvReac Type Severity Reaction Status Date / Time cat dander Allergy Itching Verified 10/18/18 14:02 Physical Exam Vitals: Vital Signs Temp Pulse Pulse Resp BP BP Pulse Ox 10/19/18 08:52 120 H 18 106/55 10/19/18 07:04 97.6 F 70 16 113/57 10/18/18 18:02 98.6 F 16 136/92 96 10/18/18 17:50 98.6 F 16 136/92 96 10/18/18 13:48 98.0 F 98 18 132/85 96 Intake and Output 10/18/18 10/19/18 10/19/18 22:59 06:59 14:59 Other: Weight 68.8 kg Results Labs: Abnormal Lab Results - Last 24 Hours (Table) 10/18/18 Range/Units 14:56 Ur Barbiturates Screen Detected H (NotDetected) Ur Amphetamines Screen Detected H (NotDetected) U Methamphetamines Scrn Detected H (NotDetected) Urine Cocaine Screen Detected H (NotDetected) U Marijuana (THC) Screen Detected H (NotDetected) Thrombosis Risk Factor Assmnt - Choose All That Apply Any of the Below Risk Factors Present?: No Other Risk Factors: No Other congenital or acquired thrombophilia - If yes, enter type in comment: No Thrombosis Risk Factor Assessment Level: Very Low Risk
[2018-10-20] MEDS: PANTOPRAZOLE 40 MG TABLET PO SCH (08:05)
[2018-10-20] MEDS: CHOLECALCIFEROL 1,000 UNIT TAB PO SCH (08:05)
[2018-10-20] MEDS: LISINOPRIL 5 MG TAB PO SCH (08:06)
[2018-10-20 09:36] LABS: Basophils % (A) 1 %; Eosinophils # (A) 0.4 k/uL (0-0.7); Eosinophils % (A) 8 %; HCT 45.1 % (39.0-53.0); HGB 14.6 gm/dL (13.0-17.5); Lymphocytes # (A) 1.2 k/uL (1.0-4.8); Lymphocytes % (A) 24 %; MCH 29.1 pg (25.0-35.0); MCHC 32.4 g/dL (31.0-37.0); MCV 89.8 fL (80.0-100.0); Mean Platelet Volume 6.4; Monocytes # (A) 0.3 k/uL (0-1.0); Monocytes % (A) 6 %; Neutrophils # (A) 3.1 k/uL (1.3-7.7); Neutrophils % (A) 60 %; Platelet Count 268 k/uL (150-450); RBC 5.02 m/uL (4.30-5.90); WBC 5.1 k/uL (3.8-10.6)
[2018-10-20 09:55] LABS: ALT 25 U/L (21-72); AST 14 U/L (17-59); Albumin 3.8 g/dL (3.5-5.0); Alkaline Phosphatase 77 U/L (38-126); Anion Gap 8 mmol/L; Blood Urea Nitrogen 18 mg/dL (9-20); Calcium 9.4 mg/dL (8.4-10.2); Carbon Dioxide 27 mmol/L (22-30); Chloride 105 mmol/L (98-107); Cholesterol 191 mg/dL (<200); Glucose 184 mg/dL (74-99); HDL Cholesterol 37 mg/dL (40-60); LDL Cholesterol,Calculated 120 mg/dL (0-99); Potassium 4.3 mmol/L (3.5-5.1); Sodium 140 mmol/L (137-145); Total Bilirubin 0.4 mg/dL (0.2-1.3); Total Protein 6.7 g/dL (6.3-8.2); Triglycerides 169 mg/dL (<150)
[2018-10-20] MEDS: NICOTINE POLACRILEX 2 MG GUM BUCCAL PRN ×2 (10:54→17:30)
--- NOTE | 2018-10-20 13:22 | P.PN ---
Subjective Progress Note Date: 10/20/18 Principal diagnosis: Schizoaffective disorder Patient interviewed and discussed with nursing staff and team at morning meeting. Chart reviewed and discussed his admission with the patient who said he just got bad drugs from his roommate and that he is feeling better. He has no suicidal homicidal ideation at the current time. Objective - Vital Signs Vital signs: Vital Signs Temp 97.8 F 10/20/18 06:45 Pulse 86 10/20/18 06:45 Resp 16 10/20/18 06:45 BP 113/61 10/20/18 06:45 Pulse Ox 96 10/18/18 18:02 - Labs CBC & Chem 7: 10/20/18 09:03 10/20/18 09:03 Labs: Abnormal Lab Results - Last 24 Hours (Table) 10/20/18 Range/Units 09:03 Glucose 184 H (74-99) mg/dL AST 14 L (17-59) U/L Triglycerides 169 H (<150) mg/dL LDL Cholesterol, Calc 120 H (0-99) mg/dL HDL Cholesterol 37 L (40-60) mg/dL Assessment and Plan Assessment: Chief Complaint: Suicidal ideation and worsening psychoses HPI: Mr. Sherwood is 42 yo single male admitted here from ER secondary to worsening psychoses and suicidal ideation. Reportedly he had fight with his friend and he got very mad and started getting angry and agitated. Threatened to hurt himself and started having paranoid delusions. He also relapsed to cocaine. He just received Invega sustenna and been taking Lamictal and Zoloft. He endorses severe anhedonia, irritability, paranoia, worsening anxiety, feeling hopeless and helpless and having recurrent thoughts of self harm PAST PSYCHIATRIC HISTORY: Patient has had previous inpatient admissions before he has been on Zoloft in the past which he seemed to tolerate fine he makes reference to since he's been off of his medications he's been seeing spirits. He says he had one real suicide attempt where he took an overdose of Depakote. PMH: Stomach problems, heart problems, may be cancer (tumor side of spine, skin cancer back), questionable hernia or testicular cancer. Seizure disorder ALLERGIES: Cat Dander CHEMICAL DEPENDENCY HISTORY: Patient reports that he did do some heavy drinking in the past. His drug of choice in the past has been marijuana. He has used crack the past couple of years. He did use cocaine Saturday last week. He's never been big into heroin. Says he used nightshade, it sounds like about a month ago. FAMILY PSYCHIATRIC HISTORY: None known at this time. FAMILY CHEMICAL DEPENDENCY HISTORY: No known at this time. SOCIAL HISTORY: Patient has been at the [facility] for months. Home Medications Medication Instructions Recorded Confirmed Cholecalciferol [Vitamin D3] 5,000 unit PO DAILY 10/18/18 10/18/18 Sertraline [Zoloft] 100 mg PO HS@209910/18/18 10/18/18 lamoTRIgine [LaMICtal] 200 mg PO HS@209910/18/18 10/18/18 Previous Rx's Medication Instructions Recorded Omeprazole [PriLOSEC] 20 mg PO AC-BID 30 Days #30 07/23/18 capsule. Lisinopril [Zestril] 5 mg PO DAILY 30 Days #30 tab 08/20/18 Paliperidone IM [Invega Sustenna] 234 mg IM Q28D 28 Days #1 syringe 08/20/18 Allergies Allergy/AdvReac Type Severity Reaction Status Date / Time cat dander Allergy Itching Verified 10/18/18 14:02 Past Medical History Past Medical History: COPD, GERD/Reflux, Musculoskeletal Disorder, Seizure Disorder Additional Past Medical History / Comment(s): scoliosis, herpes, hiatal hernia, migraines History of Any Multi-Drug Resistant Organisms: None Reported Past Surgical History: No Surgical Hx Reported Additional Past Surgical History / Comment(s): EGD about 10 years ago Past Anesthesia/Blood Transfusion Reactions: No Reported Reaction Past Psychological History: Anxiety, Bipolar, Depression, Schizoaffective Disorder Smoking Status: Current every day smoker Past Alcohol Use History: Occasional Past Drug Use History: Cocaine, Heroin, IV Drug Use, Marijuana, Methamphetamine - Past Family History Mother History Unknown: Yes Father History Unknown: Yes Mental status examination: This is a 42-year-old male who previously been on the unit for similar episodes of psychosis exacerbated by cocaine. General appearance is disheveled appears older than his stated age. Speech is slow and hesitant monotone in nature. Mood is depressed anxious irritable angry. Affect is lively and incongruent labile at times. Orientation he is oriented to person place and time and situation blaming it on his roommate and dad drugs. Thought content is within normal. Risk factors he is not suicidal homicidal at the current time although he hates his roommate right now but would not harm. Perception he denies any hallucinations auditory visual or tactile. Thought process is concrete and circumstantial. Concentration is impaired per observation and interview with the patient. Recent memory within normal. Remote memory within normal. Intelligence below average. Judgment fair. Insight none. (1) Schizoaffective disorder with good prognostic features Current Visit: No Status: Chronic Priority: Low Code(s): F25.9 - SCHIZOAFFECTIVE DISORDER, UNSPECIFIED SNOMED Code(s): 39263315 Plan: We'll determine when his next Invega shot should be since his last on the unit was 09/28/2018 and need to determine with daily mental health court is been compliant with treatment. We'll maintain 15 minute checks and usual customary protocol for the mental health unit. While determine with [facility] in the open on 10/21/2018 when his last injection was and prognosis disposition to be discussed tomorrow in team. Time with Patient: Less than 30
[2018-10-20 18:55] LABS: Hemoglobin A1C 5.4 % (4.0-6.0)
[2018-10-21 07:08] VITALS: BP 131/63; PULSE 75; RESP 18; TEMP 97.9
[2018-10-21] MEDS: PANTOPRAZOLE 40 MG TABLET PO SCH (09:34)
[2018-10-21] MEDS: LISINOPRIL 5 MG TAB PO SCH (09:34)
--- NOTE | 2018-10-21 11:03 | P.DS ---
Providers Date of admission: 10/18/18 16:28 Expected date of discharge: 10/21/18 Attending physician: Itz Conway Consults: 10/18/18 16:30 Consult Physician Routine Consulting Provider: Molly Mccarthy Consult Reason/Comments: medical management Do you want consulting provider notified?: Yes, Notify in am Primary care physician: [facility] - Discharge Diagnosis(es) (1) Schizoaffective disorder Current Visit: Yes Status: Acute Priority: High (2) Cannabis use disorder, moderate, dependence Current Visit: Yes Status: Acute Priority: Medium (3) Cocaine use disorder Current Visit: Yes Status: Acute Priority: Medium Hospital Course: Brief summary of admission note: This patient is a 42-year-old male who was admitted to the emergency room for worsening symptoms of psychosis and aggressive thoughts. He apparently was involved in a fight with his friend got angry and was agitated. He threatened to hurt himself and described having paranoid delusions. His urine drug screen was positive for barbiturates, cocaine, methamphetamine, and marijuana. For full details please refer to the psychiatric evaluation dictated 10/19/2018. Summary of hospital course: The patient was admitted to the mental health unit voluntarily. He was initially seen by Dr. Loya and also seen by Dr. Palma in my absence. The patient indicates he is doing much better. He states that he sure it was the methamphetamine and cocaine that caused his exacerbation of psychosis and agitation. He reports no thoughts of harming himself or others. He intentionally use the methamphetamine but feels that his other substances were spiked with cocaine and barbiturates. Staff report that the patient has primarily been staying in his room although he has been eating. We discussed the possibility of attending inpatient chemical dependency treatment and he adamantly refuses that treatment option. We verified that he is due for his next Invega Sustenna injection November 01. He typically is prescribed Zoloft and Lamictal and those will be restarted. Mental status exam: The patient is a thin male appearing his stated age. He is dressed in his own clothing he's mildly disheveled hygiene is adequate. He is pleasant cooperative and easily directed. He reports no suicidal or homicidal ideation intent or plan. He reports he will have auditory hallucinations at baseline but denies having any today. He reports he never has any command auditory hallucinations. He demonstrates no verbal or physical aggressiveness he demonstrates no involuntary repetitive movements. Insight and judgment have improved. He is oriented to person place and date. He spontaneously describes future oriented thinking. Impressions 1. Schizoaffective disorder rule out bipolar type, cocaine use disorder, cannabis use disorder Plan: The patient will be discharged from the mental health unit today to return home. It appears his symptoms were exacerbated by use of numerous substances. He does not agree to inpatient chemical dependency treatment. At this time there is no imminent safety risk is appropriate for transition back to outpatient care. He will resume Lamictal 200 mg at bedtime Zoloft 100 mg at bedtime and will continue Invega Sustenna 234 mg every 28 days with his next dose due on 11/01/2018. He is instructed to return to the hospital if any acute safety concerns. Patient Condition at Discharge: Stable Plan - Discharge Summary Discharge Rx Participant: No New Discharge Prescriptions: New lamoTRIgine 200 mg PO HS #30 tablet Nicotine Polacrilex [Nicorette] 2 mg BUCCAL Q6HR PRN #30 gum PRN Reason: Nicotine Cravings Continue Omeprazole [PriLOSEC] 20 mg PO AC-BID 30 Days #30 capsule. Lisinopril [Zestril] 5 mg PO DAILY 30 Days #30 tab Cholecalciferol [Vitamin D3] 5,000 unit PO DAILY Paliperidone IM [Invega Sustenna] 234 mg IM Q28D 28 Days #1 syringe Sertraline [Zoloft] 100 mg PO HS@2100 #30 tab Discontinued lamoTRIgine [LaMICtal] 200 mg PO HS@2100 Discharge Medication List Omeprazole [PriLOSEC] 20 mg PO AC-BID 30 Days #30 capsule. 07/23/18 [Rx] Lisinopril [Zestril] 5 mg PO DAILY 30 Days #30 tab 08/20/18 [Rx] Cholecalciferol [Vitamin D3] 5,000 unit PO DAILY 10/18/18 [History] Nicotine Polacrilex [Nicorette] 2 mg BUCCAL Q6HR PRN #30 gum 10/21/18 [Rx] Paliperidone IM [Invega Sustenna] 234 mg IM Q28D 28 Days #1 syringe 10/21/18 [Rx ] Sertraline [Zoloft] 100 mg PO HS@2100 #30 tab 10/21/18 [Rx] lamoTRIgine 200 mg PO HS #30 tablet 10/21/18 [Rx] Follow up Appointment(s)/Referral(s): [facility] [Outside] - 10/27/18 3:00 pm (w/ Dr. Fernandes) [facility] [Primary Care Provider] - 1-2 days Activity/Diet/Wound Care/Special Instructions: Remove all firearms from the home; Refrain from street drugs and alcohol; Diet and activity as tolerated; Follow-up with your PCP in 1-2 days; Keep all scheduled follow-up appointments and take your meds. as prescribed; When you are in need of prescription refills, either contact your PCP or your aftercare psychiatrist; If you worsen or have any problems, call the Crisis Line at [phone] or go to the nearest ER for a psychiatric evaluation.
[2018-11-11] MEDS ORDERED: PALIPERIDONE IM 234 MG/1.5 ML SYG IM SCH (09:00)
== END 2018-10-21 12:03 | disposition home or self-care (01) | DRG 885 ==
LOC: EC 13:40 → 3MHU 16:28
PROVIDERS: ADMIT Psychiatry & Neurology Psychiatry; ATTEND Psychiatry & Neurology Psychiatry
DX: F25.1 Schizoaffective disorder, depressive type (principal); F12.20 Cannabis dependence, uncomplicated; F14.10 Cocaine abuse, uncomplicated; F15.90 Other stimulant use, unspecified, uncomplicated; F17.210 Nicotine dependence, cigarettes, uncomplicated; F41.9 Anxiety disorder, unspecified; G40.909 Epilepsy, unspecified, not intractable, without status epilepticus; Z91.5 Personal history of self-harm; J44.9 Chronic obstructive pulmonary disease, unspecified; K21.9 Gastro-esophageal reflux disease without esophagitis; M41.9 Scoliosis, unspecified; Y04.0XXA Assault by unarmed brawl or fight, initial encounter; Z79.899 Other long term (current) drug therapy; Z59.0 Homelessness; G43.909 Migraine, unspecified, not intractable, without status migrainosus
CPT/HCPCS: 80053; 80061; 80306; 82075; 83036; 84443; 85025; 99285

== ENCOUNTER 2019-01-09 16:01 | Inpatient (IN) | payer MEDICARE, MEDICAID ==
--- NOTE | 2019-01-09 17:18 | ED ---
Psych HPI - General Chief Complaint: Psychiatric Symptoms Stated Complaint: EPS eval Time Seen by Provider: 01/09/19 16:20 Source: patient, RN notes reviewed, old records reviewed, Caregiver Mode of arrival: ambulatory - History of Present Illness Initial Comments: This is a 43-year-old male the ER for evaluation. Patient presents today for evaluation regards to psychiatric illness. Patient is currently on drugs, patient here with at team for evaluation of drug intoxication, recent meth use and insomnia MD Complaint: altered mental status -: days(s) Associated Psychiatric Symptoms: racing thoughts, auditory hallucinations, visual hallucinations, delusions History of same: Yes Quality: constant Improves With: none Worsens With: drug use Context: recent drug abuse Associated Symptoms: denies other symptoms Treatments Prior to Arrival: placed on mental health hold - Related Data Home Medications Medication Instructions Recorded Confirmed Cholecalciferol [Vitamin D3 (25 5,000 unit PO DAILY 01/09/19 01/09/19 Mcg = 1000 Iu)] DULoxetine HCL [Cymbalta] 60 mg PO DAILY 01/09/19 01/09/19 Ferrous Sulfate [Feosol] 325 mg PO MOWEFR 01/09/19 01/09/19 risperiDONE MICROSPHERES 50 mg IM Q14D 01/09/19 01/09/19 [RisperDAL CONSTA] risperiDONE [RisperDAL] 4 mg PO HS 01/09/19 01/09/19 Previous Rx's Medication Instructions Recorded Omeprazole [PriLOSEC] 20 mg PO AC-BID 30 Days #30 07/23/18 capsule. Lisinopril [Zestril] 5 mg PO DAILY 30 Days #30 tab 08/20/18 lamoTRIgine 200 mg PO HS #30 tablet 10/21/18 Allergies Allergy/AdvReac Type Severity Reaction Status Date / Time cat dander Allergy Itching Verified 01/09/19 16:53 Review of Systems ROS Statement: Those systems with pertinent positive or pertinent negative responses have been documented in the HPI. ROS Other: All systems not noted in ROS Statement are negative. Past Medical History Past Medical History: COPD, GERD/Reflux, Musculoskeletal Disorder, Seizure Disorder Additional Past Medical History / Comment(s): scoliosis, herpes, hiatal hernia, migraines History of Any Multi-Drug Resistant Organisms: None Reported Past Surgical History: No Surgical Hx Reported Additional Past Surgical History / Comment(s): EGD about 10 years ago Past Anesthesia/Blood Transfusion Reactions: No Reported Reaction Past Psychological History: Anxiety, Bipolar, Depression, Schizoaffective D isorder Smoking Status: Current every day smoker - Past Family History Mother History Unknown: Yes Father History Unknown: Yes General Exam Limitations: no limitations General appearance: alert, in no apparent distress Head exam: Present: atraumatic, normocephalic, normal inspection Eye exam: Present: normal appearance, PERRL, EOMI. Absent: scleral icterus, conjunctival injection, periorbital swelling ENT exam: Present: normal exam, mucous membranes moist Neck exam: Present: normal inspection. Absent: tenderness, meningismus, lymphadenopathy Respiratory exam: Present: normal lung sounds bilaterally. Absent: respiratory distress, wheezes, rales, rhonchi, stridor Cardiovascular Exam: Present: regular rate, normal rhythm, normal heart sounds. Absent: systolic murmur, diastolic murmur, rubs, gallop, clicks GI/Abdominal exam: Present: soft, normal bowel sounds. Absent: distended, tenderness, guarding, rebound, rigid Extremities exam: Present: normal inspection, full ROM, normal capillary refill. Absent: tenderness, pedal edema, joint swelling, calf tenderness Back exam: Present: normal inspection Neurological exam: Present: alert, oriented X3, CN II-XII intact Psychiatric exam: Present: normal affect, normal mood Skin exam: Present: warm, dry, intact, normal color. Absent: rash Course Vital Signs 01/09/19 16:05 Temperature 96.5 F L Pulse Rate 92 Respiratory 20 Rate Blood Pressure 153/98 O2 Sat by Pulse 92 L Oximetry - Reevaluation(s) Reevaluation #1: 01/09/19 18:07 Medical clear for psychiatric evaluation Medical Decision Making - Medical Decision Making 43 male the ER for evaluation history of meth use, recent meth use. Patient be admitted for psychiatric evaluation and treatment Disposition Clinical Impression: Polysubstance abuse, Acute psychosis Disposition: TRANSFER TO PSYCH HOSP/UNIT Condition: Fair Is patient prescribed a controlled substance at d/c from ED?: No Referrals: [facility] [Primary Care Provider] - 1-2 days
[2019-01-09] MEDS ORDERED: MAGNESIUM HYDROXIDE 2,400 MG/10 ML CUP PO PRN (18:14)
[2019-01-09] MEDS ORDERED: ACETAMINOPHEN TAB 325 MG TAB PO PRN (18:14)
[2019-01-09] MEDS ORDERED: LORazepam 2 MG/ML INJ IM PRN (18:18)
[2019-01-09] MEDS: risperiDONE 2 MG TAB PO SCH (20:52)
[2019-01-09] MEDS ORDERED: levETIRAcetam 500 MG TAB PO SCH (21:00)
--- NOTE | 2019-01-09 21:18 | CT ---
EXAMINATION TYPE: CT brain wo con DATE OF EXAM: 01/09/2019 COMPARISON: 04/02/2017 HISTORY: seizure CT DLP: 1123 mGycm. Automated Exposure Control for Dose Reduction was Utilized. TECHNIQUE: CT scan of the head is performed without contrast. FINDINGS: Ventricles and sulci appear normal. There is no mass effect nor midline shift. There is no sign of intracranial hemorrhage. The calvarium is intact. There is prominent subarachnoid space in th e anterior left middle cranial fossa. Arachnoid cyst is possible. IMPRESSION: No acute abnormality. No change compared to last exam.
--- NOTE | 2019-01-09 21:21 | P.MDCNMH ---
History of Present Illness H&P Date: 01/09/19 Chief Complaint: psychosis , seizure 43 year old male , history mainly obtained from reviewing medical records. patient is awake and alert , but he mumbles most of the time and does not give proper history He has long history of schizoaffective disorder, bipolar disorder, and history of seizures. he had 2 seizures back when he was in early 20s, never took medications for it. 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 neuro recommended starting him on trileptal at that time. patient is homeless and does not drive. He denies any recent seizure attacks, denies any alcohol, but admits to using drugs without naming them . He has history of cocaine abuse. It seems that patient otherwise was brought to the hospital for psychiatric evaluation due to acute psychosis. he currently denies taking any prescription meds , he denies any suicidal or homicidal ideation he otherwise denies any medical concerns at this time other than the seizure attack earlier on the mental health unit (witnessed by admitting nurse described as tonic-clonic generalized seizure lasted 2-3 minutes patient regained consciousness immediately after the attack there was no tongue biting but loss of sphincter control urinary incontinence. Patient was kept safe no observed injuries wounds or cuts), he denies any headache, changes in his vision or hearing, denies any focal neuro deficits. denies any chest pain or trouble breathing Review of Systems Pertinent positives as noted in HPI. All other systems were reviewed and are negative Past Medical History Past Medical History: COPD, GERD/Reflux, Musculoskeletal Disorder, Seizure Disorder Additional Past Medical History / Comment(s): scoliosis, herpes, hiatal hernia, migraines History of Any Multi-Drug Resistant Organisms: None Reported Past Surgical History: No Surgical Hx Reported Additional Past Surgical History / Comment(s): EGD about 10 years ago Past Anesthesia/Blood Transfusion Reactions: No Reported Reaction Past Psychological History: Anxiety, Bipolar, Depression, Schizoaffective Disorder Smoking Status: Current every day smoker - Past Family History Mother History Unknown: Yes Father History Unknown: Yes Medications and Allergies Home Medications Medication Instructions Recorded Confirmed Type Omeprazole [PriLOSEC] 20 mg PO AC-BID 30 Days #30 07/23/18 01/09/19 Rx capsule.dr Lisinopril [Zestril] 5 mg PO DAILY 30 Days #30 tab 08/20/18 01/09/19 Rx lamoTRIgine 200 mg PO HS #30 tablet 10/21/18 01/09/19 Rx Cholecalciferol [Vitamin D3 (25 5,000 unit PO DAILY 01/09/19 01/09/19 History Mcg = 1000 Iu)] DULoxetine HCL [Cymbalta] 60 mg PO DAILY 01/09/19 01/09/19 History Ferrous Sulfate [Feosol] 325 mg PO MOWEFR 01/09/19 01/09/19 History risperiDONE MICROSPHERES 50 mg IM Q14D 01/09/19 01/09/19 History [RisperDAL CONSTA] risperiDONE [RisperDAL] 4 mg PO HS 01/09/19 01/09/19 History Allergies Allergy/AdvReac Type Severity Reaction Status Date / Time cat dander Allergy Itching Verified 01/09/19 16:53 Physical Exam Vitals: Vital Signs Temp Pulse Resp BP Pulse Ox 01/09/19 18:00 97.8 F 88 20 144/82 96 01/09/19 16:05 96.5 F L 92 20 153/98 92 L Intake and Output 01/09/19 01/09/19 01/09/19 06:59 14:59 22:59 Other: Weight 68.039 kg Constitutional: No acute distress, patient is showing poor effort and making his conversation comprehensible, he is asking to go to bed and rest. Eyes: Anicteric sclerae, moist conjunctiva, Pupils equal round reactive to light ENMT: NC/AT Oropharynx clear, no erythema, or exudates Neck: Supple, FROM, no masses, or JVD No carotid bruits No thyromegaly Lungs: Clear to auscultation Clear to percussion Normal respiratory effort, no accessory muscle use Cardiovascular: Heart regular in rate and rhythm, No murmurs, gallops, or rubs No peripheral edema Abdominal: Soft Nontender, no guarding, rebound or rigidity Abdomen moving with respiration Normoactive bowel sounds No hepatomegaly, No splenomegaly No palpable mass No abdominal wall hernia noted Skin: Normal temperature, tone, texture, turgor No induration No subcutaneous nodules No rash, lesions No ulcers Extremities: No digital cyanosis No clubbing Pedal pulses intact and symmetrical Radial pulses intact and symmetrical No calf tenderness Psychiatric: Alert and oriented to person, place not oriented to time Avoids eye contact depressed affect Poor judgment Neuro Muscles Strength 5/5 in all 4 extremities Sensation to light touch grossly present throughout Cranial nerves II-XII grossly intact No focal sensory deficits Lymphatics: no palpable cervical or supraclavicular , or inguinal lymph nodes Cranial Nerve Examination - Cranial Nerves Cranial Nerve II- Optic: Intact Cranial Nerve III- Oculomotor: Intact Cranial Nerve IV- Trochlear: Intact Cranial Nerve V- Trigeminal: Intact Cranial Nerve - Abducens: Intact Cranial Nerve VII- Facial: Intact Cranial Nerve VIII- Auditory: Intact Cranial Nerve IX- Glossopharyngeal: Intact Cranial Nerve X- Vagus: Intact Cranial Nerve XI- Accessory: Intact Cranial Nerve XII- Hypoglossal: Intact Assessment and Plan Assessment: 43-year-old male with history of seizures not on any medications. Also history of schizoaffective disorder and bipolar disorder who was brought to the hospital for psychiatric evaluation due to acute psychosis. While on the mental health unit he had a seizure attack witnessed by admitting nurse described as generalized tonic-clonic seizure lasted 2-3 minutes patient had urinary incontinence no tongue biting no observed injuries. Patient was given a dose of Ativan and had no postictal confusion with regain of full consciousness. Medicine was consulted for evaluation and further management Plan: breakthrough seizure patient started on Keppra initially but then due to concerns of worsening psychosis , this was switched to trileptal which has better mood stabiliZer effect. 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 Do not hesitate to contact us with questions. Someone can be reached from the [facility] [place] hospitalist group at all hours of the day at [phone].
[2019-01-09 21:37] LABS: Basophils # (A) 0.1 k/uL (0-0.2); Basophils % (A) 1 %; Eosinophils # (A) 0.3 k/uL (0-0.7); Eosinophils % (A) 4 %; HCT 40.7 % (39.0-53.0); Lymphocytes % (A) 15 %; MCH 28.1 pg (25.0-35.0); MCHC 31.9 g/dL (31.0-37.0); MCV 88.1 fL (80.0-100.0); Mean Platelet Volume 6.9; Monocytes # (A) 0.4 k/uL (0-1.0); Monocytes % (A) 7 %; Neutrophils # (A) 4.8 k/uL (1.3-7.7); Neutrophils % (A) 72 %; Platelet Count 275 k/uL (150-450); RBC 4.62 m/uL (4.30-5.90); RDW 14.3 % (11.5-15.5); WBC 6.6 k/uL (3.8-10.6)
[2019-01-09 21:46] LABS: ALT 28 U/L (21-72); AST 21 U/L (17-59); Albumin 4.3 g/dL (3.5-5.0); Alcohol <10 mg/dL; Alkaline Phosphatase 61 U/L (38-126); Anion Gap 8 mmol/L; Blood Urea Nitrogen 14 mg/dL (9-20); Calcium 9.8 mg/dL (8.4-10.2); Carbon Dioxide 26 mmol/L (22-30); Chloride 105 mmol/L (98-107); Glucose 65 mg/dL (74-99); Magnesium 2.2 mg/dL (1.6-2.3); Potassium 4.3 mmol/L (3.5-5.1); Sodium 139 mmol/L (137-145); Total Bilirubin 0.6 mg/dL (0.2-1.3)
[2019-01-09] MEDS: OXcarbazepine 300 MG TAB PO SCH (22:24)
[2019-01-09 23:46] VITALS: BMI 24.0
[2019-01-10 02:20] LABS: Hemoglobin A1C 5.9 % (4.0-6.0)
[2019-01-10 07:48] LABS: Basophils # (A) 0.1 k/uL (0-0.2); Basophils % (A) 1 %; Eosinophils # (A) 0.6 k/uL (0-0.7); Eosinophils % (A) 5 %; HCT 39.5 % (39.0-53.0); HGB 13.1 gm/dL (13.0-17.5); Lymphocytes # (A) 1.5 k/uL (1.0-4.8); Lymphocytes % (A) 15 %; MCH 29.3 pg (25.0-35.0); MCV 88.7 fL (80.0-100.0); Mean Platelet Volume 6.7; Monocytes # (A) 0.8 k/uL (0-1.0); Monocytes % (A) 8 %; Neutrophils % (A) 69 %; Platelet Count 269 k/uL (150-450); RBC 4.46 m/uL (4.30-5.90); WBC 10.2 k/uL (3.8-10.6)
[2019-01-10 08:00] LABS: ALT 23 U/L (21-72); AST 19 U/L (17-59); Albumin 3.8 g/dL (3.5-5.0); Alkaline Phosphatase 64 U/L (38-126); Anion Gap 8 mmol/L; Blood Urea Nitrogen 13 mg/dL (9-20); Calcium 9.2 mg/dL (8.4-10.2); Carbon Dioxide 23 mmol/L (22-30); Chloride 109 mmol/L (98-107); Cholesterol 159 mg/dL (<200); Glucose 77 mg/dL (74-99); HDL Cholesterol 41 mg/dL (40-60); LDL Cholesterol,Calculated 103 mg/dL (0-99); Potassium 4.1 mmol/L (3.5-5.1); Sodium 140 mmol/L (137-145); Total Bilirubin 0.6 mg/dL (0.2-1.3); Total Protein 6.5 g/dL (6.3-8.2); Triglycerides 76 mg/dL (<150)
[2019-01-10] MEDS: OXcarbazepine 300 MG TAB PO SCH ×2 (08:08→21:22)
--- NOTE | 2019-01-10 11:58 | P.HP ---
Psychiatric H&P - . H&P Date: 01/10/19 History & Physical: Allergies Allergy/AdvReac Type Severity Reaction Status Date / Time cat dander Allergy Itching Verified 01/09/19 16:53 Vital Signs Temp 97.6 F 01/10/19 07:18 Pulse 78 01/10/19 07:18 Resp 16 01/10/19 07:18 BP 112/74 01/10/19 07:18 Pulse Ox 98 01/09/19 23:33 Intake & Output 01/09/19 01/10/19 01/10/19 18:59 06:59 18:59 Weight 68.039 kg Laboratory Last Values WBC 10.2 k/uL (3.8-10.6) 01/10/19 07:18 RBC 4.46 m/uL (4.30-5.90) 01/10/19 07:18 Hgb 13.1 gm/dL (13.0-17.5) 01/10/19 07:18 Hct 39.5 % (39.0-53.0) 01/10/19 07:18 MCV 88.7 fL (80.0-100.0) 01/10/19 07:18 MCH 29.3 pg (25.0-35.0) 01/10/19 07:18 MCHC 33.0 g/dL (31.0-37.0) 01/10/19 07:18 RDW 14.0 % (11.5-15.5) 01/10/19 07:18 Plt Count 269 k/uL (150-450) 01/10/19 07:18 Neutrophils % 69 % 01/10/19 07:18 Lymphocytes % 15 % 01/10/19 07:18 Monocytes % 8 % 01/10/19 07:18 Eosinophils % 5 % 01/10/19 07:18 Basophils % 1 % 01/10/19 07:18 Neutrophils # 7.0 k/uL (1.3-7.7) 01/10/19 07:18 Lymphocytes # 1.5 k/uL (1.0-4.8) 01/10/19 07:18 Monocytes # 0.8 k/uL (0-1.0) 01/10/19 07:18 Eosinophils # 0.6 k/uL (0-0.7) 01/10/19 07:18 Basophils # 0.1 k/uL (0-0.2) 01/10/19 07:18 Sodium 140 mmol/L (137-145) 01/10/19 07:18 Potassium 4.1 mmol/L (3.5-5.1) 01/10/19 07:18 Chloride 109 mmol/L (98-107) H 01/10/19 07:18 Carbon Dioxide 23 mmol/L (22-30) 01/10/19 07:18 Anion Gap 8 mmol/L 01/10/19 07:18 BUN 13 mg/dL (9-20) 01/10/19 07:18 Creatinine 0.91 mg/dL (0.66-1.25) 01/10/19 07:18 Est GFR (CKD-EPI)AfAm >90 (>60 ml/min/1.73 sqM) 01/10/19 07:18 Est GFR (CKD-EPI)NonAf >90 (>60 ml/min/1.73 sqM) 01/10/19 07:18 Glucose 77 mg/dL (74-99) 01/10/19 07:[address] Glu mg/dL 123 01/09/19 21:11 Hemoglobin A1c 5.9 % (4.0-6.0) 01/09/19 21:11 Calcium 9.2 mg/dL (8.4-10.2) 01/10/19 07:18 Magnesium 2.2 mg/dL (1.6-2.3) 01/09/19 21:11 Total Bilirubin 0.6 mg/dL (0.2-1.3) 01/10/19 07:18 AST 19 U/L (17-59) 01/10/19 07:18 ALT 23 U/L (21-72) 01/10/19 07:18 Alkaline Phosphatase 64 U/L (38-126) 01/10/19 07:18 Total Protein 6.5 g/dL (6.3-8.2) 01/10/19 07:18 Albumin 3.8 g/dL (3.5-5.0) 01/10/19 07:18 Triglycerides 76 mg/dL (<150) 01/10/19 07:18 Cholesterol 159 mg/dL (<200) 01/10/19 07:18 LDL Cholesterol, Calc 103 mg/dL (0-99) H 01/10/19 07:18 HDL Cholesterol 41 mg/dL (40-60) 01/10/19 07:18 TSH 0.303 mIU/L (0.465-4.680) L 01/10/19 07:18 Serum Alcohol <10 mg/dL 01/09/19 21:11 IDENTIFYING DATA: 43-year-old male patient HPI: Patient admitted to the inpatient psychiatric unit on the current [facility] on a voluntary basis with concerns per ER notes regarding suicidal ideation. Patient states that he has nothing to say. He states that the ACT team wanted him to get treatment here he is not sure why. He then reports that they think he is safer here. He reports that his mood right now as grumpy. Per unit staff he had a seizure on the unit last night, he relates he doesn't remember having a seizure. He has been started on Trileptal and was seen by the medical physician. Patient denies that he was having thoughts of harm to himself when he came in the hospital. Per chart notes, was brought in by the ACT team due to concerns of noncompliance with medication and speed and marijuana use. PAST PSYCHIATRIC HISTORY: Patient has had multiple inpatient psychiatric hospitalizations. His diagnosis has been schizoaffective disorder depressed. He most recently has been on Risperdal 4 mg at bedtime, Risperdal consta every 2 weeks, Lamictal and Cymbalta. He has been on Zoloft in the past. He has history of suicide attempt which was an overdose of Depakote per chart history. PMH: Per ER record, COPD, gastroesophageal reflux disease, musculoskeletal disorder, scoliosis, herpes, hiatal hernia, migraine. Per chart history, history of seizure disorder. ALLERGIES: Cat dander MEDICATIONS: Tylenol when necessary, Maalox when necessary, Ativan when necessary, milk of magnesia when necessary, Trileptal, Risperdal CHEMICAL DEPENDENCY HISTORY: Per chart history heavy alcohol use in the past, drug of choice in the past has been marijuana, history of crack cocaine use, per chart history admitted with concerns of noncompliance of medication and speed and marijuana use. FAMILY PSYCHIATRIC HISTORY: Not known at this time. FAMILY CHEMICAL DEPENDENCY HISTORY: Not known at this time. SOCIAL HISTORY: Current living situation not known, per chart history reference made to recent relationship breakup. MENTAL STATUS EXAM: Patient is found in his room sleeping, he does awaken with several name-calling's and is cooperative to come to the interview room. The i nterview is very brief, patient verbalizes that he has nothing to say. He does answer some questions. He describes that his mood is stable and says he is not hearing voices. He does not make any reference to thoughts of harm to self or others. He does display some irritability at times. He denies that he was having thoughts of harm to self when he came in the hospital. The interview is very limited at this time, the patient returns to go back to his room. He did report not remembering that he had a seizure. He did return to the interview room door to inquire regarding which room was his and he was redirected back to his room. STRENGTHS/WEAKNESSES: Strengths-in outpatient treatment; weaknesses-coping skills INTELLECTUAL FUNCTIONING: Average IMPRESSIONS: Schizoaffective disorder, depressive type; likely history of alcohol use disorder, cannabis use disorder, stimulant use disorder PLAN: Patient is admitted to the inpatient psychiatric unit on a voluntary basis. He will placed on SP 15 minute precautions. Baseline laboratory workup will be done the patient and medical consultation is ordered. He'll be placed on seizure precautions we will monitor for any seizure activity. He has been started on Trileptal 3 mg twice a day. This may also does some benefit for mood stability. He is maintained on Risperdal. 4 mg at bedtime to treat/prevent any psychosis symptoms and also help with mood stability. We will look into any support systems. He'll be encouraged to participate in group and activity therapies. Estimated length of stay is 3-5 days. Prognosis is guarded. 01/10/19 11:36
--- NOTE | 2019-01-10 16:13 | EEG ---
ELECTROENCEPHALOGRAM REPORT DATE OF SERVICE: 01/10/2019 PREAMBLE: This is a 43-year-old male who had a seizure. Patient's current medications include risperidone, Trileptal, magnesium, lorazepam, Maalox and Tylenol. EEG SUMMARY: The background consists of well developed, well regulated, moderate amplitude activity in 8 Hz alpha. Background is posterior dominant and reactive to eye opening and closing. Patient was drowsy with appearance of bilaterally symmetric theta frequency rhythm in the middle and later part of the study. Stage II sleep was seen with appearance of bilaterally symmetric sleep spindles, vertex waves and K-complexes. More deeper stages of sleep were not seen. No focal or generalized epileptiform activity was seen. EKG rhythm lead show no arrhythmia. IMPRESSION: This is a normal EEG during wakefulness, drowsiness and stage II sleep. No focal paroxysmal or epileptiform activities were seen. MMLUIS FELIPEL / IJN: [id number] /
--- NOTE | 2019-01-10 16:25 | P.CNNES ---
History of Present Illness Consult date: 01/10/19 Chief complaint: Seizure History of Present Illness: Patient is a 43-year-old male, who is admitted to the psych unit for major depression with suicidal ideation. Patient apparently was admitted yesterday. Shortly after arrival to the hospital, had a grand mal seizure, in which his eyes rolled back. No report of tongue bite or urinary incontinence. He was given Ativan 100 mg IV after the seizure. No seizures further reported. This seizure prompted neurology consultation. Patient was sleeping. The nurse had to wake him up. Patient was not in a mood to answer questions, appeared very irritable, edgy. Patient not providing appropriate history. Upon asking as to when he started having seizure disorder, he could not give me the answers. Patient very vague about his description. Had "couple seizure as a child", "couple" as an adult. He states he has had seizure "not very many" in his lifetime. His rough guess was "less than 10". Patient does not know what medications he is taking. He states that he does not take any medication. However his home medication list states that he takes Lamictal 200 mg daily. At present he is on Trileptal 300 mg twice a day. Patient denies any history of head injury, family history of epilepsy. Regarding tobacco use, he states he smokes but it "varies". He denies any alcoholism or drug use. According to the nurse report, patient has expressed earlier that he did speed and marijuana. Review of Systems Patient in a bad mood, not answering questions. Past Medical History Past Medical History: COPD, GERD/Reflux, Musculoskeletal Disorder, Seizure Disorder Additional Past Medical History / Comment(s): scoliosis, herpes, hiatal hernia, migraines History of Any Multi-Drug Resistant Organisms: None Reported Past Surgical History: No Surgical Hx Reported Additional Past Surgical History / Comment(s): EGD about 10 years ago Past Anesthesia/Blood Transfusion Reactions: No Reported Reaction Smoking Status: Current every day smoker - Past Family History Mother History Unknown: Yes Father History Unknown: Yes Medications and Allergies Home Medications Medication Instructions Recorded Confirmed Type Omeprazole [PriLOSEC] 20 mg PO AC-BID 30 Days #30 07/23/18 01/09/19 Rx capsule. Lisinopril [Zestril] 5 mg PO DAILY 30 Days #30 tab 08/20/18 01/09/19 Rx lamoTRIgine 200 mg PO HS #30 tablet 10/21/18 01/09/19 Rx Cholecalciferol [Vitamin D3 (25 5,000 unit PO DAILY 01/09/19 01/09/19 History Mcg = 1000 Iu)] DULoxetine HCL [Cymbalta] 60 mg PO DAILY 01/09/19 01/09/19 History Ferrous Sulfate [Feosol] 325 mg PO MOWEFR 01/09/19 01/09/19 History risperiDONE MICROSPHERES 50 mg IM Q14D 01/09/19 01/09/19 History [RisperDAL CONSTA] risperiDONE [RisperDAL] 4 mg PO HS 01/09/19 01/09/19 History Allergies Allergy/AdvReac Type Severity Reaction Status Date / Time cat dander Allergy Itching Verified 01/09/19 16:53 Physical Examination - Vital Signs Vital Signs: Vital Signs Temp Pulse Pulse Resp BP BP Pulse Ox 01/10/19 07:18 97.6 F 78 16 112/74 01/09/19 23:33 97.1 F L 89 18 134/92 98 01/09/19 18:00 97.8 F 88 20 144/82 96 Patient is awake, but in a bad mood. His speech and language functions are normal. Orientation could not be checked. His face is symmetric. He moves his arms and legs equally. Sensations, visual deluna, cerebellar functions and mus wilber strength not checked because of his noncooperation. Results - Laboratory Findings CBC and BMP: 01/10/19 07:18 01/10/19 07:18 Abnormal Lab Findings: Abnormal Labs 01/09/19 01/10/19 21:11 07:18 Chloride 109 H Glucose 65 L LDL Cholesterol, Calc 103 H TSH 0.303 L Assessment and Plan Assessment: * Witnessed seizure. * Probable previous history of seizure disorder * Major depression with suicidal ideation. Plan: EEG was performed today, which was normal. No focal, paroxysmal or generalized epileptiform activity was seen. Patient has been started on Trileptal 300 mg twice a day for his mood disorder. Hopefully it will prevent seizures as well. Please call neurology if he has any more breakthrough seizures. Please inform patient of [place] state law of no driving unless seizure free for 6 months, climbing ladders, operating dangerous machinery or unsupervised swimming. I did not discuss with him because of his mood dysfunction. We will sign off
[2019-01-10] MEDS: risperiDONE 2 MG TAB PO SCH (21:22)
--- NOTE | 2019-01-11 08:50 | P.PN ---
Progress Note - Text Progress Note Date: 01/11/19 Interval history: Patient is seen again in cross coverage today. He is found in his room lying in bed. He prefers not to meet with me at this point in time. He is asked to go to his nurse if he has any questions for me. Mental status exam: He is found in his room lying in bed. He does awaken, prefers not to meet with me at this point in time. He does not make any statements regarding thoughts of harm to self or others. He does not show any significant agitation. Plan: Continue to monitor for any psychotropic medication side effects we'll maintain Trileptal and Risperdal as current. He is asked to go to his nurse if he has any questions for me.
[2019-01-11] MEDS: OXcarbazepine 300 MG TAB PO SCH ×2 (09:07→20:57)
[2019-01-11] MEDS: risperiDONE 2 MG TAB PO SCH (20:57)
[2019-01-12] MEDS: OXcarbazepine 300 MG TAB PO SCH ×2 (09:08→20:24)
[2019-01-12 13:52] LABS: Amorphous Sediment,Urine Occasional /hpf; Appearance,Urine Turbid (Clear); Bilirubin,Urine Negative (Negative); Blood,Urine Negative (Negative); Color,Urine Yellow; Glucose,Urine (UA) Negative (Negative); Ketones,Urine Negative (Negative); Leukocyte Esterase,Urine Negative (Negative); Mucus,Urine Many /hpf; Nitrite,Urine Negative (Negative); Protein,Urine 1+ (Negative); Specific Gravity,Urine 1.026 (1.001-1.035); Squamous Epithelial Cell,Urine 3 /hpf (0-4)
[2019-01-12 13:54] LABS: Amphetamine Screen,Urine Detected (NotDetected); Barbiturate Screen,Urine Not Detected (NotDetected); Benzodiazepines Screen,Urine Detected (NotDetected); Cocaine Screen,Urine Not Detected (NotDetected); Methadone Screen, Urine Not Detected (NotDetected); Opiate Screen,Urine Not Detected (NotDetected); Oxycodone Screen, Urine Not Detected (NotDetected); Phencyclidine Screen,Urine Not Detected (NotDetected); Tricyclic Antidepressant,Urine Not Detected (NotDetected); Urn Cannabinoid Scrn Detected (NotDetected)
[2019-01-12] MEDS: risperiDONE 2 MG TAB PO SCH (20:24)
[2019-01-13] MEDS: OXcarbazepine 300 MG TAB PO SCH ×2 (08:55→20:38)
--- NOTE | 2019-01-13 13:09 | P.PN ---
Subjective Progress Note Date: 01/13/19 Principal diagnosis: Schizoaffective disorder, depressive type; likely history of alcohol use disorder, cannabis use disorder, stimulant use disorder 01/12/2019 Chart reviewed and discussed with team; patient interviewed depressed is low, anxious,some racing thoughts, hypersomnia and poor functioning. Admits to using amphetamines. 01/13/2019: Chart reviewed and discussed with treatment team today nursing staff and social work. Patient remains depressed anxious racing thoughts hypersomnia or functioning. He has no suicidal thoughts today nor any homicidal thoughts. Objective - Vital Signs Vital signs: Vital Signs Temp 97.9 F 01/13/19 07:17 Pulse 78 01/13/19 07:17 Resp 16 01/13/19 07:17 BP 132/78 01/13/19 07:17 Pulse Ox 98 01/09/19 23:33 - Labs CBC & Chem 7: 01/10/19 07:18 01/10/19 07:18 Labs: Abnormal Lab Results - Last 24 Hours (Table) 01/12/19 01/12/19 Range/Units 12:51 13:35 Urine Protein 1+ H (Negative) Urine WBC 11 H (0-5) /hpf Amorphous Sediment Occasional H (None) /hpf Urine Mucus Many H (None) /hpf Ur Amphetamines Screen Detected H (NotDetected) U Benzodiazepines Scrn Detected H (NotDetected) U Marijuana (THC) Screen Detected H (NotDetected) Microbiology - Last 24 Hours (Table) 01/12/19 12:51 Urine Culture - Preliminary Urine,Voided Assessment and Plan Assessment: HPI: Patient admitted to the inpatient psychiatric unit on the current [facility] on a voluntary basis with concerns per ER notes regarding suicidal ideation. Patient states that he has nothing to say. He states that the ACT team wanted him to get treatment here he is not sure why. He then reports that they think he is safer here. He reports that his mood right now as grumpy. Per unit staff he had a seizure on the unit last night, he relates he doesn't remember having a seizure. He has been started on Trileptal and was seen by the medical physician. Patient denies that he was having thoughts of harm to himself when he came in the hospital. Per chart notes, was brought in by the ACT team due to concerns of noncompliance with medication and speed and marijuana use. PAST PSYCHIATRIC HISTORY: Patient has had multiple inpatient psychiatric hospitalizations. His diagnosis has been schizoaffective disorder depressed. He most recently has been on Risperdal 4 mg at bedtime, Risperdal consta every 2 weeks, Lamictal and Cymbalta. He has been on Zoloft in the past. He has history of suicide attempt which was an overdose of Depakote per chart history. PMH: Per ER record, COPD, gastroesophageal reflux disease, musculoskeletal diso rder, scoliosis, herpes, hiatal hernia, migraine. Per chart history, history of seizure disorder. ALLERGIES: Cat dander MEDICATIONS: Tylenol when necessary, Maalox when necessary, Ativan when necessa ry, milk of magnesia when necessary, Trileptal, Risperdal CHEMICAL DEPENDENCY HISTORY: Per chart history heavy alcohol use in the past, drug of choice in the past has been marijuana, history of crack cocaine use, per chart history admitted with concerns of noncompliance of medication and speed and marijuana use. FAMILY PSYCHIATRIC HISTORY: Not known at this time. FAMILY CHEMICAL DEPENDENCY HISTORY: Not known at this time. SOCIAL HISTORY: Current living situation rents a room in a house PLAN: Patient is admitted to the inpatient psychiatric unit on a voluntary basis. He will placed on SP 15 minute precautions. He'll be placed on seizure precautions we will monitor for any seizure activity. He has been started on Trileptal 300 mg twice a day. This may also does some benefit for mood stability. He is maintained on Risperdal 4 mg at bedtime to treat/prevent any psychosis symptoms and also help with mood stability. We will look into any support systems. He'll be encouraged to participate in group and activity therapies. Estimated length of stay is 3-5 days. Prognosis is guarded. 01/13/2019: He has been started on Trileptal 300 mg twice a day and has had a good reaction to the medicine in a positive way. He still remains on 15 minute checks for safety and usual protocol for the mental health unit. He remains on Risperdal 4 mg at bedtime to prevent any psychosis. On 01/14/2019 he will receive 50 mg Risperdal constant (1) Amphetamine abuse, episodic Current Visit: Yes Status: Acute Priority: High Code(s): F15.10 - OTHER STIMULANT ABUSE, UNCOMPLICATED SNOMED Code(s): 857495698 (2) Schizoaffective disorder Current Visit: No Status: Acute Priority: High Code(s): F25.9 - SCHIZOAFFECTIVE DISORDER, UNSPECIFIED SNOMED Code(s): 93540991 Time with Patient: Less than 30
[2019-01-13] MEDS: LORazepam 1 MG TAB PO PRN (17:28)
[2019-01-13] MEDS: risperiDONE 2 MG TAB PO SCH (20:38)
[2019-01-14] MEDS: OXcarbazepine 300 MG TAB PO SCH ×2 (09:07→21:02)
--- NOTE | 2019-01-14 12:33 | P.PN ---
Subjective Progress Note Date: 01/14/19 Principal diagnosis: Schizoaffective disorder, depressive type; likely history of alcohol use disorder, cannabis use disorder, stimulant use disorder 01/12/2019 Chart reviewed and discussed with team; patient interviewed depressed is low, anxious,some racing thoughts, hypersomnia and poor functioning. Admits to using amphetamines. 01/13/2019: Chart reviewed and discussed with treatment team today nursing staff and social work. Patient remains depressed anxious racing thoughts hypersomnia or functioning. He has no suicidal thoughts today nor any homicidal thoughts. 12/15/2018: Chart reviewed and discussed with team as well as nursing staff says he looks withdrawn and activity therapy feels is not the same facility and before. He went to breakfast this morning and then went back to bed and I had to wake him up at 1220 in the afternoon. He states he feels a little bit better but still is withdrawn tired depressed and hopeless and overwhelmed. Denies any auditory or visual hallucinations. Objective - Vital Signs Vital signs: Vital Signs Temp 97.9 F 01/14/19 06:07 Pulse 85 01/14/19 06:07 Resp 16 01/13/19 20:37 BP 113/78 01/14/19 06:07 Pulse Ox 98 01/09/19 23:33 - Labs CBC & Chem 7: 01/10/19 07:18 01/10/19 07:18 Labs: Microbiology - Last 24 Hours (Table) 01/12/19 12:51 Urine Culture - Final Urine,Voided Assessment and Plan Assessment: HPI: Patient admitted to the inpatient psychiatric unit on the current [facility] on a voluntary basis with concerns per ER notes regarding suicidal ideation. Patient states that he has nothing to say. He states that the ACT team wanted him to get treatment here he is not sure why. He then reports that they think he is safer here. He reports that his mood right now as grumpy. Per unit staff he had a seizure on the unit last night, he relates he doesn't remember having a seizure. He has been started on Trileptal and was seen by the medical physician. Patient denies that he was having thoughts of harm to himself when he came in the hospital. Per chart notes, was brought in by the ACT team due to concerns of noncompliance with medication and speed and marijuana use. PAST PSYCHIATRIC HISTORY: Patient has had multiple inpatient psychiatric hospitalizations. His diagnosis has been schizoaffective disorder depressed. He most recently has been on Risperdal 4 mg at bedtime, Risperdal consta every 2 weeks, Lamictal and Cymbalta. He has been on Zoloft in the past. He has history of suicide attempt which was an overdose of Depakote per chart history. PMH: Per ER record, COPD, gastroesophageal reflux disease, musculoskeletal disorder, scoliosis, herpes, hiatal hernia, migraine. Per chart history, history of seizure disorder. ALLERGIES: Cat dander MEDICATIONS: Tylenol when necessary, Maalox when necessary, Ativan when necessary, milk of magnesia when necessary, Trileptal, Risperdal CHEMICAL DEPENDENCY HISTORY: Per chart history heavy alcohol use in the past, drug of choice in the past has been marijuana, history of crack cocaine use, per chart history admitted with concerns of noncompliance of medication and speed and marijuana use. FAMILY PSYCHIATRIC HISTORY: Not known at this time. FAMILY CHEMICAL DEPENDENCY HISTORY: Not known at this time. SOCIAL HISTORY: Current living situation rents a room in a house PLAN: Patient is admitted to the inpatient psychiatric unit on a voluntary basis. He will placed on SP 15 minute precautions. He'll be placed on seizure precautions we will monitor for any seizure activity. He has been started on Trileptal 300 mg twice a day. This may also does some benefit for mo od stability. He is maintained on Risperdal 4 mg at bedtime to treat/prevent any psychosis symptoms and also help with mood stability. We will look into any support systems. He'll be encouraged to participate in group and activity therapies. Estimated length of stay is 3-5 days. Prognosis is guarded. 01/13/2019: He has been started on Trileptal 300 mg twice a day and has had a good reaction to the medicine in a positive way. He still remains on 15 minute checks for safety and usual protocol for the mental health unit. He remains on Risperdal 4 mg at bedtime to prevent any psychosis. On 01/14/2019 he will receive 50 mg Risperdal constant 01/14/2019: He remains on 15 minute checks. He's tolerating his Trileptal 300 mg twice a day. He has no side effects dimensional. He remains on 4 mg of Risperdal at bedtime and will give him his maintenance 50 mg Risperdal constant. He is homeless and will discuss with team tomorrow his disposition and discharge planning. (1) Amphetamine abuse, episodic Current Visit: Yes Status: Acute Priority: Medium Code(s): F15.10 - OTHER STIMULANT ABUSE, UNCOMPLICATED SNOMED Code(s): 696893944 (2) Schizoaffective disorder Current Visit: Yes Status: Acute Priority: Medium Code(s): F25.9 - SCHIZOAFFECTIVE DISORDER, UNSPECIFIED SNOMED Code(s): 35028526
[2019-01-14] MEDS: LORazepam 1 MG TAB PO PRN (21:02)
[2019-01-14] MEDS: risperiDONE 2 MG TAB PO SCH (21:02)
[2019-01-14] MEDS: MAG HYDROX/AL HYDROX/SIMETH 30 ML CUP PO PRN (21:03)
[2019-01-15] MEDS ORDERED: BISACODYL 5 MG TABLET.DR PO PRN (01:44)
[2019-01-15] MEDS: OXcarbazepine 300 MG TAB PO SCH ×2 (08:42→20:55)
[2019-01-15] MEDS: PANTOPRAZOLE 40 MG TABLET PO SCH (08:42)
[2019-01-15] MEDS: MAG HYDROX/AL HYDROX/SIMETH 30 ML CUP PO PRN ×3 (10:16→22:22)
--- NOTE | 2019-01-15 13:16 | P.PN ---
Subjective Progress Note Date: 01/15/19 Principal diagnosis: Schizoaffective disorder, depressive type; likely history of alcohol use disorder, cannabis use disorder, stimulant use disorder 01/12/2019 Chart reviewed and discussed with team; patient interviewed depressed is low, anxious,some racing thoughts, hypersomnia and poor functioning. Admits to using amphetamines. 01/13/2019: Chart reviewed and discussed with treatment team today nursing staff and social work. Patient remains depressed anxious racing thoughts hypersomnia or functioning. He has no suicidal thoughts today nor any homicidal thoughts. 12/15/2018: Chart reviewed and discussed with team as well as nursing staff says he looks withdrawn and activity therapy feels is not the same facility and before. He went to breakfast this morning and then went back to bed and I had to wake him up at 1220 in the afternoon. He states he feels a little bit better but still is withdrawn tired depressed and hopeless and overwhelmed. Denies any auditory or visual hallucinations. 12/16/2018: Chart reviewed and discussed with team regarding his continued therapy for substance abuse and had recommended to him today either [facility] or [facility]. He still tends to wake up slowly on the morning but was up this morning and went to goal setting for the day. He still has some depression and hopelessness but is starting to be more positive about his future. He definitely wants to get his substance abuse under control so he does not have a relapse again. He denies any auditory or visual hallucinations today. Objective - Vital Signs Vital signs: Vital Signs Temp 97.5 F L 01/15/19 06:57 Pulse 113 H 01/15/19 06:57 Resp 18 01/15/19 06:57 BP 128/83 01/15/19 06:57 Pulse Ox 98 01/09/19 23:33 - Labs CBC & Chem 7: 01/10/19 07:18 01/10/19 07:18 Assessment and Plan Assessment: HPI: Patient admitted to the inpatient psychiatric unit on the current [facility] on a voluntary basis with concerns per ER notes regarding suicidal ideation. Patient states that he has nothing to say. He states that the ACT team wanted him to get treatment here he is not sure why. He then reports that they think he is safer here. He reports that his mood right now as grumpy. Per unit staff he had a seizure on the unit last night, he relates he doesn't remember having a seizure. He has been started on Trileptal and was seen by the medical physician. Patient denies that he was having thoughts of harm to himself when he came in the hospital. Per chart notes, was brought in by the ACT team due to concerns of noncompliance with medication and speed and marijuana use. PAST PSYCHIATRIC HISTORY: Patient has had multiple inpatient psychiatric hospitalizations. His diagnosis has been schizoaffective disorder depressed. He most recently has been on Risperdal 4 mg at bedtime, Risperdal consta every 2 weeks, Lamictal and Cymbalta. He has been on Zoloft in the past. He has history of suicide attempt which was an overdose of Depakote per chart history. PMH: Per ER record, COPD, gastroesophageal reflux disease, musculoskeletal disorder, scoliosis, herpes, hiatal hernia, migraine. Per chart history, history of seizure disorder. ALLERGIES: Cat dander MEDICATIONS: Tylenol when necessary, Maalox when necessary, Ativan when necessary, milk of magnesia when necessary, Trileptal, Risperdal CHEMICAL DEPENDENCY HISTORY: Per chart history heavy alcohol use in the past, drug of choice in the past has been marijuana, history of crack cocaine use, per chart history admitted with concerns of noncompliance of medication and speed and marijuana use. FAMILY PSYCHIATRIC HISTORY: Not known at this time. FAMILY CHEMICAL DEPENDENCY HISTORY: Not known at this time. SOCIAL HISTORY: Current living situation rents a room in a house PLAN: Patient is admitted to the inpatient psychiatric unit on a voluntary basis. He will placed on SP 15 minute precautions. He'll be placed on seizure precautions we will monitor for any seizure activity. He has been started on Trileptal 300 mg twice a day. This may also does some benefit for mood stability. He is maintained on Risperdal 4 mg at bedtime to treat/prevent any psychosis symptoms and also help with mood stability. We will look into any support systems. He'll be encouraged to participate in group and activity therapies. Estimated length of stay is 3-5 days. Prognosis is guarded. 01/13/2019: He has been started on Trileptal 300 mg twice a day and has had a g ood reaction to the medicine in a positive way. He still remains on 15 minute checks for safety and usual protocol for the mental health unit. He remains on Risperdal 4 mg at bedtime to prevent any psychosis. On 01/14/2019 he will receive 50 mg Risperdal constant 01/14/2019: He remains on 15 minute checks. He's tolerating his Trileptal 300 mg twice a day. He has no side effects dimensional. He remains on 4 mg of Risperdal at bedtime and will give him his maintenance 50 mg Risperdal constant. He is homeless and will discuss with team tomorrow his disposition and discharge planning. 01/15/2019: Remains unchanged 15 minute checks and is interacting and positive manner in [facility] milieu therapeutic environment. He is interacting with staff and a positive fashion. He is tolerating the Trileptal 300 mg twice a day. He has no side effects from the medications. A Trileptal level is ordered to determine therapeutic level. (1) Amphetamine abuse, episodic Current Visit: Yes Status: Acute Priority: Medium Code(s): F15.10 - OTHER STIMULANT ABUSE, UNCOMPLICATED SNOMED Code(s): 373426235 (2) Schizoaffective disorder Current Visit: Yes Status: Acute Priority: Medium Code(s): F25.9 - SCHIZOAFFECTIVE DISORDER, UNSPECIFIED SNOMED Code(s): 76961296 Time with Patient: Less than 30
--- NOTE | 2019-01-15 13:29 | P.PN ---
Subjective Progress Note Date: 01/12/19 Principal diagnosis: Schizoaffective disorder, depressive type; likely history of alcohol use disorder, cannabis use disorder, stimulant use disorder 01/12/2019 Chart reviewed and discussed with team; patient interviewed depressed is low, anxious,some racing thoughts, hypersomnia and poor functioning. Admits to using amphetamines. Objective - Vital Signs Vital signs: Vital Signs Temp 98.1 F 01/12/19 06:32 Pulse 78 01/12/19 06:32 Resp 16 01/12/19 06:32 BP 140/79 01/12/19 06:32 Pulse Ox 98 01/09/19 23:33 - Labs CBC & Chem 7: 01/10/19 07:18 01/10/19 07:18 Assessment and Plan Assessment: HPI: Patient admitted to the inpatient psychiatric unit on the current [facility] on a voluntary basis with concerns per ER notes regarding suicidal ideation. Patient states that he has nothing to say. He states that the ACT team wanted him to get treatment here he is not sure why. He then rep orts that they think he is safer here. He reports that his mood right now as grumpy. Per unit staff he had a seizure on the unit last night, he relates he doesn't remember having a seizure. He has been started on Trileptal and was seen by the medical physician. Patient denies that he was having thoughts of harm to himself when he came in the hospital. Per chart notes, was brought in by the ACT team due to concerns of noncompliance with medication and speed and marijuana use. PAST PSYCHIATRIC HISTORY: Patient has had multiple inpatient psychiatric hospitalizations. His diagnosis has been schizoaffective disorder depressed. He most recently has been on Risperdal 4 mg at bedtime, Risperdal consta every 2 weeks, Lamictal and Cymbalta. He has been on Zoloft in the past. He has history of suicide attempt which was an overdose of Depakote per chart history. PMH: Per ER record, COPD, gastroesophageal reflux disease, musculoskeletal disorder, scoliosis, herpes, hiatal hernia, migraine. Per chart history, history of seizure disorder. ALLERGIES: Cat dander MEDICATIONS: Tylenol when necessary, Maalox when necessary, Ativan when necessary, milk of magnesia when necessary, Trileptal, Risperdal CHEMICAL DEPENDENCY HISTORY: Per chart history heavy alcohol use in the past, drug of choice in the past has been marijuana, history of crack cocaine use, per chart history admitted with concerns of noncompliance of medication and speed and marijuana use. FAMILY PSYCHIATRIC HISTORY: Not known at this time. FAMILY CHEMICAL DEPENDENCY HISTORY: Not known at this time. SOCIAL HISTORY: Current living situation rents a room in a house PLAN: Patient is admitted to the inpatient psychiatric unit on a voluntary basis. He will placed on SP 15 minute precautions. He'll be placed on seizure precautions we will monitor for any seizure activity. He has been started on Trileptal 300 mg twice a day. This may also does some benefit for mood stability. He is maintained on Risperdal 4 mg at bedtime to treat/prevent any psychosis symptoms and also help with mood stability. We will look into any support systems. He'll be encouraged to participate in group and activity therapies. Estimated length of stay is 3-5 days. Prognosis is guarded. (1) Amphetamine abuse, episodic Current Visit: Yes Status: Acute Priority: High Code(s): F15.10 - OTHER STIMULANT ABUSE, UNCOMPLICATED SNOMED Code(s): 808482223 (2) Schizoaffective disorder Current Visit: No Status: Acute Priority: High Code(s): F25.9 - SCHIZOAFFECTIVE DISORDER, UNSPECIFIED SNOMED Code(s): 78272370 Time with Patient: Less than 30
[2019-01-15] MEDS: risperiDONE 2 MG TAB PO SCH (20:55)
[2019-01-16] MEDS: PANTOPRAZOLE 40 MG TABLET PO SCH (08:15)
[2019-01-16] MEDS: OXcarbazepine 300 MG TAB PO SCH ×2 (08:15→20:12)
[2019-01-16] MEDS: LORazepam 1 MG TAB PO PRN ×2 (10:57→22:36)
--- NOTE | 2019-01-16 11:24 | P.PN ---
Subjective Progress Note Date: 01/16/19 Principal diagnosis: Schizoaffective disorder, depressive type; likely history of alcohol use disorder, cannabis use disorder, stimulant use disorder 01/12/2019 Chart reviewed and discussed with team; patient interviewed depressed is low, anxious,some racing thoughts, hypersomnia and poor functioning. Admits to using amphetamines. 01/16/2019: Chart reviewed and discussed with team and he interviewed the patient. He is looking forward to going to substance abuse treatment next Saturday. His sleep has calmed down his racing thoughts are better and he is able to carry on a conversation without being too confused. He is not suicidal or homicidal. His depression is now down to 2 out of 10 and anxiety 2 out of 10. Objective - Vital Signs Vital signs: Vital Signs Temp 98.2 F 01/16/19 07:13 Pulse 106 H 01/16/19 07:13 Resp 16 01/16/19 07:13 BP 140/77 01/16/19 07:13 Pulse Ox 98 01/09/19 23:33 - Labs CBC & Chem 7: 01/10/19 07:18 01/10/19 07:18 Assessment and Plan Assessment: HPI: Patient admitted to the inpatient psychiatric unit on the current [facility] on a voluntary basis with concerns per ER notes regarding suicidal ideation. Patient states that he has nothing to say. He states that the ACT team wanted him to get treatment here he is not sure why. He then reports that they think he is safer here. He reports that his mood right now as grumpy. Per unit staff he had a seizure on the unit last night, he relates he doesn't remember having a seizure. He has been started on Trileptal and was seen by the medical physician. Patient denies that he was having thoughts of harm to himself when he came in the hospital. Per chart notes, was brought in by the ACT team due to concerns of noncompliance with medication and speed and marijuana use. PAST PSYCHIATRIC HISTORY: Patient has had multiple inpatient psychiatric hospitalizations. His diagnosis has been schizoaffective disorder depressed. He most recently has been on Risperdal 4 mg at bedtime, Risperdal consta every 2 weeks, Lamictal and Cymbalta. He has been on Zoloft in the past. He has history of suicide attempt which was an overdose of Depakote per chart history. PMH: Per ER record, COPD, gastroesophageal reflux disease, musculoskeletal disorder, scoliosis, herpes, hiatal hernia, migraine. Per chart history, history of seizure disorder. ALLERGIES: Cat dander MEDICATIONS: Tylenol when necessary, Maalox when necessary, Ativan when necessary, milk of magnesia when necessary, Trileptal, Risperdal CHEMICAL DEPENDENCY HISTORY: Per chart history heavy alcohol use in the past, drug of choice in the past has been marijuana, history of crack cocaine use, per chart history admitted with concerns of noncompliance of medication and speed and marijuana use. FAMILY PSYCHIATRIC HISTORY: Not known at this time. FAMILY CHEMICAL DEPENDENCY HISTORY: Not known at this time. SOCIAL HISTORY: Current living situation rents a room in a house PLAN: Patient is admitted to the inpatient psychiatric unit on a voluntary basis. He will placed on SP 15 minute precautions. He'll be placed on seizure precautions we will monitor for any seizure activity. He has been started on Trileptal 300 mg twice a day. This may also does some benefit for mood stability. He is maintained on Risperdal 4 mg at bedtime to treat/prevent any psychosis symptoms and also help with mood stability. We will look into any support systems. He'll be encouraged to participate in group and activity therapies. Estimated length of stay is 3-5 days. Prognosis is guarded. 01 16 2019: He was team this morning and reviewed chart and discussed with nursing staff and social work. His plans are to go to substance abuse treatment and he has done extremely well on the medications and his mood is stabilized as his depression as 2 out of 10 and his anxieties 2 out of 10 and able to sleep but no nightmares. (1) Amphetamine abuse, episodic Current Visit: Yes Status: Acute Priority: Low Code(s): F15.10 - OTHER STIMULANT ABUSE, UNCOMPLICATED SNOMED Code(s): 383448817 (2) Schizoaffective disorder Current Visit: Yes Status: Acute Priority: Low Code(s): F25.9 - SCHIZOAFFECTIVE DISORDER, UNSPECIFIED SNOMED Code(s): 17748018
[2019-01-16] MEDS: NICOTINE POLACRILEX 2 MG GUM BUCCAL PRN ×3 (16:52→21:07)
[2019-01-16] MEDS: risperiDONE 2 MG TAB PO SCH (20:12)
[2019-01-17] MEDS: NICOTINE POLACRILEX 2 MG GUM BUCCAL PRN ×4 (07:49→20:06)
[2019-01-17] MEDS: OXcarbazepine 300 MG TAB PO SCH ×2 (07:50→20:04)
[2019-01-17] MEDS: PANTOPRAZOLE 40 MG TABLET PO SCH (07:50)
--- NOTE | 2019-01-17 10:43 | P.PN ---
Progress Note - Text Interval history: The patient is found in his room sleeping he is verbally arousable. He indicates his mood is improving. He states he's looking forward to going to inpatient chemical dependency treatment on Saturday although he is somewhat nervous as it is a new facility for him. He has an ongoing diagnosis of schizoaffective disorder and amphetamine use disorder. He states he still adjusting to not using stimulant medication. He has no questions or concerns regarding his psychotropic medications. He reports sleeping throughout the night he states he ate breakfast this morning. He intends on participating in some groups today. Mental status exam: The patient is a balding male. He is thin and he has a disheveled appearance. He is dressed in his own clothing. Eye contact is intermittent. For the most part he is cooperative and pleasant. He is reporting no suicidal ideation intent or plan. He is reporting no auditory hallucinations. He states he will visualize the devil at times but that has been a chronic issue. He reports no homicidal ideation intent or plan. He demonstrates no verbal or physical aggressiveness. He demonstrates no involuntary repetitive movements. Insight and judgment improving considering his diagnosis. Plan: The patient will continue on his current psychotropic medication. He is encouraged to fully participate in the milieu. Vital signs reviewed. We will continue to monitor him for safety.
[2019-01-17] MEDS: LORazepam 1 MG TAB PO PRN (16:24)
[2019-01-17] MEDS: risperiDONE 2 MG TAB PO SCH (20:04)
[2019-01-17] MEDS: MAG HYDROX/AL HYDROX/SIMETH 30 ML CUP PO PRN (20:04)
[2019-01-18] MEDS: PANTOPRAZOLE 40 MG TABLET PO SCH (08:11)
[2019-01-18] MEDS: OXcarbazepine 300 MG TAB PO SCH ×2 (08:11→20:05)
--- NOTE | 2019-01-18 09:53 | P.PN ---
Progress Note - Text Interval history: The patient is found in his room he follows me to an interview room. He reports feeling frustrated and irritable. He states he's going to go to rehab but doesn't want to. He indicates he slept last night. Appetite stable. He is isolating in his room. He does not wish to participate further in the interview. Mental status exam: The patient has a disheveled appearance he is dressed in the same clothing. Eye contact is intermittent. He identifies a frustrated and irritable mood affect is congruent. He reports no suicidal or homicidal ideation. He quickly denies having any symptoms of psychosis when asked. It's likely that he does have baseline paranoid thoughts. Insight and judgment limited. He demonstrated no verbal or physical aggressiveness. He demonstrates no involuntary repetitive movements. Vital signs reviewed. Thought process can be linear. He was spontaneously tangential during our interaction. Plan: The patient will continue on his current psychotropic medications. The plan is for him to be discharged soon to inpatient chemical dependency treatment. He is encouraged to participate in the milieu we will monitor him for safety.
[2019-01-18] MEDS: NICOTINE POLACRILEX 2 MG GUM BUCCAL PRN ×3 (12:29→20:07)
[2019-01-18] MEDS: risperiDONE 2 MG TAB PO SCH (20:05)
[2019-01-18] MEDS: LORazepam 1 MG TAB PO PRN (20:06)
[2019-01-19 05:34] VITALS: BP 115/75; PULSE 103; RESP 18; TEMP 98
[2019-01-19] MEDS: LORazepam 1 MG TAB PO PRN (06:23)
[2019-01-19] MEDS: NICOTINE POLACRILEX 2 MG GUM BUCCAL PRN ×2 (06:24→10:51)
[2019-01-19] MEDS: OXcarbazepine 300 MG TAB PO SCH (08:45)
[2019-01-19] MEDS: PANTOPRAZOLE 40 MG TABLET PO SCH (08:45)
--- NOTE | 2019-01-19 11:03 | P.DS ---
Providers Date of admission: 01/09/19 18:05 Expected date of discharge: 01/19/19 Attending physician: Alexis Palma DO Consults: 01/09/19 18:14 Consult Physician Routine Consulting Provider: Leonela Green Consult Reason/Comments: medical management Do you want consulting provider notified?: Yes 01/09/19 20:41 Consult Physician Routine Consulting Provider: Kathy Whitehead Consult Reason/Comments: seizure Do you want consulting provider notified?: Yes, Notify in am Primary care physician: [facility] Diagnosis(es) (1) Amphetamine abuse, episodic Allergies Allergy/AdvReac Type Severity Reaction Status Date / Time cat dander Allergy Itching Verified 01/09/19 16:53 Vital Signs Temp 97.6 F 01/10/19 07:18 Pulse 78 01/10/19 07:18 Resp 16 01/10/19 07:18 BP 112/74 01/10/19 07:18 Pulse Ox 98 01/09/19 23:33 Intake & Output 01/09/19 01/10/19 01/10/19 18:59 06:59 18:59 Weight 68.039 kg Laboratory Last Values WBC 10.2 k/uL (3.8-10.6) 01/10/19 07:18 RBC 4.46 m/uL (4.30-5.90) 01/10/19 07:18 Hgb 13.1 gm/dL (13.0-17.5) 01/10/19 07:18 Hct 39.5 % (39.0-53.0) 01/10/19 07:18 MCV 88.7 fL (80.0-100.0) 01/10/19 07:18 MCH 29.3 pg (25.0-35.0) 01/10/19 07:18 MCHC 33.0 g/dL (31.0-37.0) 01/10/19 07:18 RDW 14.0 % (11.5-15.5) 01/10/19 07:18 Plt Count 269 k/uL (150-450) 01/10/19 07:18 Neutrophils % 69 % 01/10/19 07:18 Lymphocytes % 15 % 01/10/19 07:18 Monocytes % 8 % 01/10/19 07:18 Eosinophils % 5 % 01/10/19 07:18 Basophils % 1 % 01/10/19 07:18 Neutrophils # 7.0 k/uL (1.3-7.7) 01/10/19 07:18 Lymphocytes # 1.5 k/uL (1.0-4.8) 01/10/19 07:18 Monocytes # 0.8 k/uL (0-1.0) 01/10/19 07:18 Eosinophils # 0.6 k/uL (0-0.7) 01/10/19 07:18 Basophils # 0.1 k/uL (0-0.2) 01/10/19 07:18 Sodium 140 mmol/L (137-145) 01/10/19 07:18 Potassium 4.1 mmol/L (3.5-5.1) 01/10/19 07:18 Chloride 109 mmol/L (98-107) H 01/10/19 07:18 Carbon Dioxide 23 mmol/L (22-30) 01/10/19 07:18 Anion Gap 8 mmol/L 01/10/19 07:18 BUN 13 mg/dL (9-20) 01/10/19 07:18 Creatinine 0.91 mg/dL (0.66-1.25) 01/10/19 07:18 Est GFR (CKD-EPI)AfAm >90 (>60 ml/min/1.73 sqM) 01/10/19 07:18 Est GFR (CKD-EPI)NonAf >90 (>60 ml/min/1.73 sqM) 01/10/19 07:18 Glucose 77 mg/dL (74-99) 01/10/19 07:[address] Glu mg/dL 123 01/09/19 21:11 Hemoglobin A1c 5.9 % (4.0-6.0) 01/09/19 21:11 Calcium 9.2 mg/dL (8.4-10.2) 01/10/19 07:18 Magnesium 2.2 mg/dL (1.6-2.3) 01/09/19 21:11 Total Bilirubin 0.6 mg/dL (0.2-1.3) 01/10/19 07:18 AST 19 U/L (17-59) 01/10/19 07:18 ALT 23 U/L (21-72) 01/10/19 07:18 Alkaline Phosphatase 64 U/L (38-126) 01/10/19 07:18 Total Protein 6.5 g/dL (6.3-8.2) 01/10/19 07:18 Albumin 3.8 g/dL (3.5-5.0) 01/10/19 07:18 Triglycerides 76 mg/dL (<150) 01/10/19 07:18 Cholesterol 159 mg/dL (<200) 01/10/19 07:18 LDL Cholesterol, Calc 103 mg/dL (0-99) H 01/10/19 07:18 HDL Cholesterol 41 mg/dL (40-60) 01/10/19 07:18 TSH 0.303 mIU/L (0.465-4.680) L 01/10/19 07:18 Serum Alcohol <10 mg/dL 01/09/19 21:11 IDENTIFYING DATA: 43-year-old male patient HPI: Patient admitted to the inpatient psychiatric unit on the current [facility] on a voluntary basis with concerns per ER notes regarding suicidal ideation. Patient states that he has nothing to say. He states that the ACT team wanted him to get treatment here he is not sure why. He then reports that they think he is safer here. He reports that his mood right now as grumpy. Per unit staff he had a seizure on the unit last night, he relates he doesn't remember having a seizure. He has been started on Trileptal and was seen by the medical physician. Patient denies that he was having thoughts of harm to himself when he came in the hospital. Per chart notes, was brought in by the ACT team due to concerns of noncompliance with medication and speed and marijuana use. PAST PSYCHIATRIC HISTORY: Patient has had multiple inpatient psychiatric hospitalizations. His diagnosis has been schizoaffective disorder depressed. He most recently has been on Risperdal 4 mg at bedtime, Risperdal consta every 2 weeks, Lamictal and Cymbalta. He has been on Zoloft in the past. He has history of suicide attempt which was an overdose of Depakote per chart history. PMH: Per ER record, COPD, gastroesophageal reflux disease, musculoskeletal disorder, scoliosis, herpes, hiatal hernia, migraine. Per chart history, history of seizure disorder. ALLERGIES: Cat dander MEDICATIONS: Tylenol when necessary, Maalox when necessary, Ativan when necessary, milk of magnesia when necessary, Trileptal, Risperdal CHEMICAL DEPENDENCY HISTORY: Per chart history heavy alcohol use in the past, drug of choice in the past has been marijuana, history of crack cocaine use, per chart history admitted with concerns of noncompliance of medication and speed and marijuana use. FAMILY PSYCHIATRIC HISTORY: Not known at this time. FAMILY CHEMICAL DEPENDENCY HISTORY: Not known at this time. SOCIAL HISTORY: Current living situation not known, per chart history reference made to recent relationship breakup. MENTAL STATUS EXAM: Patient is found in his room sleeping, he does awaken with several name-calling's and is cooperative to come to the interview room. The interview is very brief, patient verbalizes that he has nothing to say. He does answer some questions. He describes that his mood is stable and says he is not hearing voices. He does not make any reference to thoughts of harm to self or others. He does display some irritability at times. He denies that he was having thoughts of harm to self when he came in the hospital. The interview is very limited at this time, the patient returns to go back to his room. He did report not remembering that he had a seizure. He did return to the interview room door to inquire regarding which room was his and he was redirected back to his room. STRENGTHS/WEAKNESSES: Strengths-in outpatient treatment; weaknesses-coping skills INTELLECTUAL FUNCTIONING: Average IMPRESSIONS: Schizoaffective disorder, depressive type; likely history of alcohol use disorder, cannabis use disorder, stimulant use disorder Current Visit: Yes Status: Acute Priority: Low (2) Schizoaffective disorder Current Visit: Yes Status: Acute Priority: Low Hospital Course: PLAN: Patient is admitted to the inpatient psychiatric unit on a voluntary basis. He will placed on SP 15 minute precautions. He'll be placed on seizure precautions we will monitor for any seizure activity. He has been started on Trileptal 300 mg twice a day. This may also does some benefit for mood stability. He is maintained on Risperdal 4 mg at bedtime to treat/prevent any psychosis symptoms and also help with mood stability. We will look into any support systems. He'll be encouraged to participate in group and activity therapies. Estimated length of stay is 3-5 days. Prognosis is guarded. 01 16 2019: He was team this morning and reviewed chart and discussed with nursing staff and social work. His plans are to go to substance abuse treatment and he has done extremely well on the medications and his mood is stabilized as his depression as 2 out of 10 and his anxieties 2 out of 10 and able to sleep but no nightmares. 01/19/2019: He was in team meeting today and time and able to be discharged to substance abuse. His Trileptal level was also increased to 2 450 mg twice a day. Mental status examination at the time of discharge 01/20/2000 1911 at 2 AM: The patient presents alert, pleasant, and cooperative. There calmly seated without any agitated behavior. [He] reports that [his] mood is good. Affect is congruent and euthymic. [He] deny having any suicidal or homicidal ideation intent or plan. [He] denies any auditory or visual hallucinations. There is no evidence of any delusional thought content. [He has] thought process is linear and goal-directed. [His] speech is fluent and nonpressured. [His] memory and concentration is grossly intact for the purposes of this session. Patient Condition at Discharge: Stable Plan - Discharge Summary Discharge Rx Participant: Yes New Discharge Prescriptions: New risperiDONE [RisperDAL] 4 mg PO HS 30 Days #60 tab OXcarbazepine [Trileptal] 450 mg PO BID 30 Days #270 tab Acetaminophen Tab [Tylenol] 650 mg PO Q4HR PRN tab PRN Reason: Pain/Discomfort Continue Omeprazole [PriLOSEC] 20 mg PO AC-BID 30 Days #30 capsule. Cholecalciferol [Vitamin D3 (25 Mcg = 1000 Iu)] 5,000 unit PO DAILY Ferrous Sulfate [Iron (65 MG Elemental)] 325 mg PO MOWEFR risperiDONE MICROSPHERES [RisperDAL CONSTA] 50 mg IM Q14D 30 Days #1 syringe Lisinopril [Zestril] 5 mg PO DAILY 30 Days #30 tab Discontinued lamoTRIgine 200 mg PO HS #30 tablet risperiDONE [RisperDAL] 4 mg PO HS DULoxetine HCL [Cymbalta] 60 mg PO DAILY Discharge Medication List Omeprazole [PriLOSEC] 20 mg PO AC-BID 30 Days #30 capsule. 07/23/18 [Rx] Cholecalciferol [Vitamin D3 (25 Mcg = 1000 Iu)] 5,000 unit PO DAILY 05/10/19 [History] Ferrous Sulfate [Iron (65 MG Elemental)] 325 mg PO MOWEFR 01/09/19 [History] Acetaminophen Tab [Tylenol] 650 mg PO Q4HR PRN tab 01/19/19 [Rx] Lisinopril [Zestril] 5 mg PO DAILY 30 Days #30 tab 01/19/19 [Rx] OXcarbazepine [Trileptal] 450 mg PO BID 30 Days #270 tab 01/19/19 [Rx] risperiDONE MICROSPHERES [RisperDAL CONSTA] 50 mg IM Q14D 30 Days #1 syringe 01/19/19 [Rx] risperiDONE [RisperDAL] 4 mg PO HS 30 Days #60 tab 01/19/19 [Rx] Follow up Appointment(s)/Referral(s): intake,intake [Other] - 01/19/19 2:00 pm (Intake Fax packet to [phone]) [facility] [Primary Care Provider] - 1-2 days Activity/Diet/Wound Care/Special Instructions: Activity and diet as tolerated. No guns or weapons in the home. Take all medications as prescribed and attend all follow up appointments as scheduled. Refrain from alcohol and street drugs not prescribed by your physician. If in need of of medication refills, please go to your primary care physician or to your outpatient psychiatric provider. If in crisis please call . Discharge Disposition: HOME SELF-CARE
[2019-01-19] MEDS ORDERED: OXcarbazepine 150 MG TAB PO SCH (21:00)
== END 2019-01-19 11:32 | disposition home or self-care (01) | DRG 885 ==
LOC: EC 16:01 → 3MHU 18:05
PROVIDERS: ADMIT Psychiatry & Neurology Psychiatry; ATTEND Psychiatry & Neurology Psychiatry
DX: F25.1 Schizoaffective disorder, depressive type (principal); R45.851 Suicidal ideations; F31.9 Bipolar disorder, unspecified; F41.9 Anxiety disorder, unspecified; F19.129 Other psychoactive substance abuse with intoxication, unspecified; F15.10 Other stimulant abuse, uncomplicated; F17.200 Nicotine dependence, unspecified, uncomplicated; G40.409 Other generalized epilepsy and epileptic syndromes, not intractable, without status epilepticus; G43.909 Migraine, unspecified, not intractable, without status migrainosus; B00.9 Herpesviral infection, unspecified; J44.9 Chronic obstructive pulmonary disease, unspecified; G47.10 Hypersomnia, unspecified; K21.9 Gastro-esophageal reflux disease without esophagitis; K44.9 Diaphragmatic hernia without obstruction or gangrene; M41.9 Scoliosis, unspecified; Z79.899 Other long term (current) drug therapy; Z91.5 Personal history of self-harm; Z59.0 Homelessness; G93.0 Cerebral cysts
CPT/HCPCS: 70450; 80053; 80061; 80183; 80306; 80307; 80320; 81001; 82075; 83036; 83735; 84443; 85025; 87086; 95819; 99285

== ENCOUNTER 2019-03-23 03:46 | Emergency (ER) | payer MEDICARE, OTHER ==
[2019-03-23 03:55] VITALS: RESP 18
--- NOTE | 2019-03-23 04:32 | ED ---
Psych HPI - General Chief Complaint: Psychiatric Symptoms Stated Complaint: mental health Source: patient Mode of arrival: ambulatory - History of Present Illness Initial Comments: Presley is a 43-year-old male who presents to the emergency department today for evaluation of paranoia and thoughts of hurting people. Patient reports that 3 days ago he "dabbled in speed and heroin" patient reports that since that time he's been feeling paranoid and agitated, he states he wants to hurt a couple people but doesn't specify who these people are. When asked if there are specific people he would like to her patient says no. Just some people. Patient states that he is just feeling somewhat paranoid and worried that people are following him. - Related Data Home Medications Medication Instructions Recorded Confirmed Cholecalciferol [Vitamin D3 (25 5,000 unit PO DAILY 01/09/19 03/03/19 Mcg = 1000 Iu)] Ferrous Sulfate [Iron (65 MG 325 mg PO MOWEFR 01/09/19 03/03/19 Elemental)] OXcarbazepine [Trileptal] 150 mg PO BID 03/03/19 03/03/19 OXcarbazepine [Trileptal] 300 mg PO BID 03/03/19 03/03/19 Previous Rx's Medication Instructions Recorded Omeprazole [PriLOSEC] 20 mg PO AC-BID 30 Days #30 07/23/18 capsule. risperiDONE MICROSPHERES 50 mg IM Q14D 30 Days #1 syringe 01/19/19 [RisperDAL CONSTA] Meclizine [Antivert] 25 mg PO TID PRN #15 tab 03/03/19 Allergies Allergy/AdvReac Type Severity Reaction Status Date / Time cat dander Allergy Itching Verified 03/03/19 22:06 Review of Systems ROS Statement: Those systems with pertinent positive or pertinent negative responses have been documented in the HPI. ROS Other: All systems not noted in ROS Statement are negative. Past Medical History Past Medical History: COPD, GERD/Reflux, Musculoskeletal Disorder, Seizure Disorder Additional Past Medical History / Comment(s): scoliosis, herpes, hiatal hernia, migraines History of Any Multi-Drug Resistant Organisms: None Reported Past Surgical History: No Surgical Hx Reported Additional Past Surgical History / Comment(s): EGD about 10 years ago Past Anesthesia/Blood Transfusion Reactions: No Reported Reaction Past Psychological History: Anxiety, Bipolar, Depression, Schizoaffective Disorder Smoking Status: Current every day smoker Past Alcohol Use History: Rare Past Drug Use History: Marijuana, Methamphetamine - Past Family History Mother History Unknown: Yes Father History Unknown: Yes General Exam - General Exam Comments Initial Comments: Physical Exam GENERAL: Patient is well-developed and well-nourished. Patient is nontoxic and well-hydrated and is in no distress. HENT: Normocephalic, Atraumatic. EYES: PERRL, EOMI Keeps his eyes rolled up while speaking PULMONARY: Unlabored respirations. No audible rales rhonchi or wheezing was noted. CARDIOVASCULAR: There is a regular rate and rhythm without any murmurs gallops or rubs. ABDOMEN: Soft and nontender with normal bowel sounds. SKIN: Skin is clear with no lesions or rashes and otherwise unremarkable. : Deferred NEUROLOGIC: Patient is alert and oriented x3. Moving all extremities spontaneously MUSCULOSKELETAL: Normal extremities with adequate strength and full range of motion. No lower extremity swelling or edema. No calf tenderness. PSYCHIATRIC: Agitated, paranoid Does not make eye contact Limitations: no limitations Course Vital Signs 03/23/19 03/23/19 03:51 06:47 Temperature 97.7 F 97.9 F Pulse Rate 94 80 Respiratory 18 18 Rate Blood Pressure 134/79 144/72 O2 Sat by Pulse 99 98 Oximetry Medical Decision Making - Medical Decision Making Patient was seen and evaluated, history is obtained from the patient Patient reports using amphetamines and heroin 2-3 days ago, denies any chest pain, shortness of breath, palpitations, nausea vomiting or abdominal pain, patient feels paranoid and people are following him. Patient has thoughts of hurting other people but doesn't specify who. Psychiatric workup was initiated Patient was evaluated by EPS nurse, it was determined the patient was stable for discharge home and outpatient follow-up. Patient was encouraged to stop using methamphetamines. - Lab Data Result diagrams: 03/23/19 04:56 03/23/19 04:56 Lab Results 03/23/19 03/23/19 03/23/19 Range/Units 04:56 04:56 04:58 WBC 10.0 (3.8-10.6) k/uL RBC 4.32 (4.30-5.90) m/uL Hgb 12.3 L (13.0-17.5) gm/dL Hct 38.2 L (39.0-53.0) % MCV 88.5 (80.0-100.0) fL MCH 28.5 (25.0-35.0) pg MCHC 32.2 (31.0-37.0) g/dL RDW 14.4 (11.5-15.5) % Plt Count 243 (150-450) k/uL Neutrophils % 77 % Lymphocytes % 13 % Monocytes % 6 % Eosinophils % 3 % Basophils % 1 % Neutrophils # 7.7 (1.3-7.7) k/uL Lymphocytes # 1.3 (1.0-4.8) k/uL Monocytes # 0.6 (0-1.0) k/uL Eosinophils # 0.3 (0-0.7) k/uL Basophils # 0.1 (0-0.2) k/uL Sodium 138 (137-145) mmol/L Potassium 4.0 (3.5-5.1) mmol/L Chloride 107 (98-107) mmol/L Carbon Dioxide 24 (22-30) mmol/L Anion Gap 7 mmol/L BUN 11 (9-20) mg/dL Creatinine 0.97 (0.66-1.25) mg/dL Est GFR (CKD-EPI)AfAm >90 (>60 ml/min/1.73 sqM) Est GFR (CKD-EPI)NonAf >90 (>60 ml/min/1.73 sqM) Glucose 89 (74-99) mg/dL Calcium 8.8 (8.4-10.2) mg/dL Total Bilirubin 0.5 (0.2-1.3) mg/dL AST 24 (17-59) U/L ALT 22 (21-72) U/L Alkaline Phosphatase 61 (38-126) U/L Total Protein 6.4 (6.3-8.2) g/dL Albumin 3.7 (3.5-5.0) g/dL Urine Opiates Screen Not Detected (NotDetected) Ur Oxycodone Screen Not Detected (NotDetected) Urine Methadone Screen Not Detected (NotDetected) Ur Propoxyphene Screen Not Detected (NotDetected) Ur Barbiturates Screen Not Detected (NotDetected) U Tricyclic Antidepress Not Detected (NotDetected) Ur Phencyclidine Scrn Not Detected (NotDetected) Ur Amphetamines Screen Detected H (NotDetected) U Methamphetamines Scrn Detected H (NotDetected) U Benzodiazepines Scrn Not Detected (NotDetected) Urine Cocaine Screen Not Detected (NotDetected) U Marijuana (THC) Screen Detected H (NotDetected) - EKG Data -: EKG Interpreted by Me EKG Comments: EKG was obtained at 4:42 AM, rate is 73, rhythm is sinus there is normal axis there are normal intervals, [place] 180, QRS 98, QTC is 416 there are no acute ST elevations or depressions there is no evidence of acute ischemia or infarction. Disposition Clinical Impression: Amphetamine abuse, episodic Disposition: HOME SELF-CARE Condition: Stable Instructions (If sedation given, give patient instructions): Polysubstance Abuse (ED) Is patient prescribed a controlled substance at d/c from ED?: No Referrals: [facility] [Primary Care Provider] - 1-2 days
[2019-03-23 05:03] LABS: Basophils # (A) 0.1 k/uL (0-0.2); Basophils % (A) 1 %; Eosinophils # (A) 0.3 k/uL (0-0.7); Eosinophils % (A) 3 %; HCT 38.2 % (39.0-53.0); HGB 12.3 gm/dL (13.0-17.5); Lymphocytes # (A) 1.3 k/uL (1.0-4.8); Lymphocytes % (A) 13 %; MCH 28.5 pg (25.0-35.0); MCHC 32.2 g/dL (31.0-37.0); MCV 88.5 fL (80.0-100.0); Mean Platelet Volume 6.2; Monocytes # (A) 0.6 k/uL (0-1.0); Monocytes % (A) 6 %; Neutrophils # (A) 7.7 k/uL (1.3-7.7); Neutrophils % (A) 77 %; Platelet Count 243 k/uL (150-450); RBC 4.32 m/uL (4.30-5.90); RDW 14.4 % (11.5-15.5)
[2019-03-23 05:14] LABS: ALT 22 U/L (21-72); AST 24 U/L (17-59); African American GFR (CKD) >90 (>60 ml/min/1.73 sqM); Albumin 3.7 g/dL (3.5-5.0); Alkaline Phosphatase 61 U/L (38-126); Anion Gap 7 mmol/L; Blood Urea Nitrogen 11 mg/dL (9-20); Calcium 8.8 mg/dL (8.4-10.2); Carbon Dioxide 24 mmol/L (22-30); Chloride 107 mmol/L (98-107); Glucose 89 mg/dL (74-99); Sodium 138 mmol/L (137-145); Total Bilirubin 0.5 mg/dL (0.2-1.3); Total Protein 6.4 g/dL (6.3-8.2)
[2019-03-23 05:19] LABS: Amphetamine Screen,Urine Detected (NotDetected); Barbiturate Screen,Urine Not Detected (NotDetected); Benzodiazepines Screen,Urine Not Detected (NotDetected); Cocaine Screen,Urine Not Detected (NotDetected); Methadone Screen, Urine Not Detected (NotDetected); Opiate Screen,Urine Not Detected (NotDetected); Oxycodone Screen, Urine Not Detected (NotDetected); Phencyclidine Screen,Urine Not Detected (NotDetected); Tricyclic Antidepressant,Urine Not Detected (NotDetected); Urn Cannabinoid Scrn Detected (NotDetected)
[2019-03-23 06:47] VITALS: BP 144/72; PULSE 80; TEMP 97.9
== END 2019-03-23 06:47 | disposition home or self-care (01) ==
LOC: EC 03:46
DX: F15.10 Other stimulant abuse, uncomplicated (principal); G40.909 Epilepsy, unspecified, not intractable, without status epilepticus; F17.200 Nicotine dependence, unspecified, uncomplicated; Z79.899 Other long term (current) drug therapy; Z91.09 Other allergy status, other than to drugs and biological substances
CPT/HCPCS: 36415; 80053; 80306; 82075; 85025; 93005; 99285

== ENCOUNTER 2019-03-26 11:45 | Inpatient (IN) | payer MEDICARE, MEDICAID ==
--- NOTE | 2019-03-26 12:11 | ED ---
General Adult HPI - General Chief complaint: Psychiatric Symptoms Stated complaint: petition Time Seen by Provider: 03/26/19 12:03 Source: patient Mode of arrival: ambulatory Limitations: no limitations - History of Present Illness Initial comments: Dictation was produced using [employer] dictation software. please excuse any grammatical, word or spelling errors. Chief Complaint: 43-year-old male past medical history of psychiatric disease, homelessness COPD presents with a petition from social science professor History of Present Illness: 43-year-old homeless man. He is petitioned by social science professor. Patient states that he's been feeling depressed and having worsening mental issues since October. Patient is a poor historian at this time. Denies any medical complaints. Denies any suicidal or homicidal ideation. No visual or auditory hallucinations. Patient denies any paranoid thinking. Petition was reviewed from social science professor indicating that patient has delusional and has paranoid thoughts. The ROS documented in this emergency department record has been reviewed and confirmed by me. Those systems with pertinent positive or negative responses have been documented in the HPI. All other systems are other negative and/or noncontributory. PHYSICAL EXAM: General Impression: Alert and oriented x3, not in acute distress HEENT: Normocephalic atraumatic, extra-ocular movements intact, pupils equal and reactive to light bilaterally, mucous membranes moist. Cardiovascular: Heart regular rate and rhythm, S1&S2 audible, no murmurs, rubs or gallops Chest: Lungs clear to auscultation bilaterally, no rhonchi, no wheeze, no rales Abdomen: Bowel sounds present, abdomen soft, non-tender, non-distended, no organomegaly Musculoskeletal: Pulses present and equal in all extremities, no peripheral edema Motor: no focal deficits noted Neurological: CN II-XII grossly intact, no focal motor or sensory deficits noted Psych: Flattened affect ED course: 43-year-old male presents today with petition from social science professor. Patient not showing any signs of acute psychosis at this time. Patient is cooperative. Sign. Bedside. Signs upon arrival are within acceptable limits. Patient medically cleared for EPS evaluation. She was evaluated by EPS recommended inpatient psychiatric admission. - Related Data Home Medications Medication Instructions Recorded Confirmed OXcarbazepine [Trileptal] 600 mg PO BID 03/26/19 03/26/19 diphenhydrAMINE [Benadryl] 50 mg PO HS 03/26/19 03/26/19 risperiDONE [RisperDAL] 4 mg PO HS 03/26/19 03/26/19 Previous Rx's Medication Instructions Recorded Omeprazole [PriLOSEC] 20 mg PO AC-BID 30 Days #30 07/23/18 capsule. risperiDONE MICROSPHERES 50 mg IM Q14D 30 Days #1 syringe 01/19/19 [RisperDAL CONSTA] Allergies Allergy/AdvReac Type Severity Reaction Status Date / Time cat dander Allergy Itching Verified 03/26/19 12:46 Review of Systems ROS Statement: Those systems with pertinent positive or pertinent negative responses have been documented in the HPI. ROS Other: All systems not noted in ROS Statement are negative. Past Medical History Past Medical History: COPD, GERD/Reflux, Musculoskeletal Disorder, Seizure Disorder Additional Past Medical History / Comment(s): scoliosis, herpes, hiatal hernia, migraines History of Any Multi-Drug Resistant Organisms: None Reported Past Surgical History: No Surgical Hx Reported Additional Past Surgical History / Comment(s): EGD about 10 years ago Past Anesthesia/Blood Transfusion Reactions: No Reported Reaction Past Psychological History: Anxiety, Bipolar, Depression, Schizoaffective Disorder Smoking Status: Current every day smoker Past Alcohol Use History: Rare Past Drug Use History: Marijuana, Methamphetamine - Past Family History Mother History Unknown: Yes Father History Unknown: Yes General Exam Limitations: no limitations Course Vital Signs 03/26/19 12:00 Temperature 98.5 F Pulse Rate 93 Respiratory 20 Rate Blood Pressure 106/71 O2 Sat by Pulse 99 Oximetry Disposition Clinical Impression: Psychosis Disposition: ADMITTED IP TO THIS [facility] Condition: Fair Referrals: [facility] [Primary Care Provider] - 1-2 days Decision Time: 15:20
[2019-03-26] MEDS ORDERED: ACETAMINOPHEN TAB 325 MG TAB PO PRN (16:49)
[2019-03-26] MEDS ORDERED: MAGNESIUM HYDROXIDE 2,400 MG/10 ML CUP PO PRN (16:49)
[2019-03-26] MEDS ORDERED: ZIPRASIDONE 20 MG VIAL IM PRN (16:49)
[2019-03-26] MEDS ORDERED: MAG HYDROX/AL HYDROX/SIMETH 30 ML CUP PO PRN (16:49)
[2019-03-26 17:10] LABS: Amphetamine Screen,Urine Detected (NotDetected); Benzodiazepines Screen,Urine Not Detected (NotDetected); Cocaine Screen,Urine Not Detected (NotDetected); Opiate Screen,Urine Not Detected (NotDetected); Phencyclidine Screen,Urine Not Detected (NotDetected); Urn Cannabinoid Scrn Detected (NotDetected)
[2019-03-26 17:11] LABS: Barbiturate Screen,Urine Not Detected (NotDetected); Methadone Screen, Urine Not Detected (NotDetected); Oxycodone Screen, Urine Not Detected (NotDetected); Tricyclic Antidepressant,Urine Not Detected (NotDetected)
--- NOTE | 2019-03-26 20:18 | P.MDCNMH ---
History of Present Illness H&P Date: 03/26/19 Chief Complaint: Medical evaluation 43-year-old male with history of COPD, history of mental health problems. Patient comes in to the hospital today petitioned by his health care social worker due to missing appointments and noncompliance. Patient is homeless he denies any suicidal or homicidal ideation denies auditory or visual hallucinations however he is expressing paranoid ideation thinking people wants to hurt him and kill him and talking about him. Patient denies taking any medications on regular basis at home. He currently denies any fevers chills coughing or chest pain or trouble breathing. Denies any abdominal pain nausea vomiting or changes in his bowel or urinary habits. Review of Systems Pertinent positives as noted in HPI. All other systems were reviewed and are negative Past Medical History Past Medical History: COPD, GERD/Reflux, Musculoskeletal Disorder, Seizure Disorder Additional Past Medical History / Comment(s): scoliosis, herpes, hiatal hernia, migraines History of Any Multi-Drug Resistant Organisms: None Reported Past Surgical History: No Surgical Hx Reported Additional Past Surgical History / Comment(s): EGD about 10 years ago Past Anesthesia/Blood Transfusion Reactions: No Reported Reaction Past Psychological History: Anxiety, Bipolar, Depression, Schizoaffective Disorder Smoking Status: Current every day smoker Past Alcohol Use History: Rare Past Drug Use History: Marijuana, Methamphetamine - Past Family History Mother History Unknown: Yes Father History Unknown: Yes Medications and Allergies Home Medications Medication Instructions Recorded Confirmed Type Omeprazole [PriLOSEC] 20 mg PO AC-BID 30 Days #30 07/23/18 03/26/[address] Garcia MICROSPHERES 50 mg IM Q14D 30 Days #1 syringe 01/19/19 03/26/19 Rx [RisperDAL CONSTA] OXcarbazepine [Trileptal] 600 mg PO BID 03/26/19 03/26/19 History diphenhydrAMINE [Benadryl] 50 mg PO HS 03/26/19 03/26/19 History risperiDONE [RisperDAL] 4 mg PO HS 03/26/19 03/26/19 History Allergies Allergy/AdvReac Type Severity Reaction Status Date / Time cat dander Allergy Itching Verified 03/26/19 12:46 Physical Exam Vitals: Vital Signs Temp Pulse Pulse Resp BP BP Pulse Ox 03/26/19 16:29 96.5 F L 81 15 111/56 95 03/26/19 15:57 97.6 F 67 18 118/80 97 03/26/19 12:00 98.5 F 93 20 106/71 99 Intake and Output 03/26/19 03/26/19 03/26/19 06:59 14:59 22:59 Other: Weight 65.771 kg Constitutional: No acute distress, conversant, pleasant Eyes: Anicteric sclerae, moist conjunctiva, Pupils equal round reactive to light ENMT: NC/AT Oropharynx clear, no erythema, or exudates Neck: Supple, FROM, no masses, or JVD No carotid bruits No thyromegaly Lungs: Clear to auscultation Clear to percussion Normal respiratory effort, no accessory muscle use Cardiovascular: Heart regular in rate and rhythm, No murmurs, gallops, or rubs No peripheral edema Abdominal: Soft Nontender, no guarding, rebound or rigidity Abdomen moving with respiration Normoactive bowel sounds No hepatomegaly, No splenomegaly No palpable mass No abdominal wall hernia noted Skin: Normal temperature, tone, texture, turgor No induration No subcutaneous nodules No rash, lesions No ulcers Extremities: No digital cyanosis No clubbing Pedal pulses intact and symmetrical Radial pulses intact and symmetrical No calf tenderness Psychiatric: Alert and oriented to person, place and time Appropriate affect poor judgment Neuro Muscles Strength 5/5 in all 4 extremities Sensation to light touch grossly present throughout Cranial nerves II-XII grossly intact No focal sensory deficits Lymphatics: no palpable cervical or supraclavicular , or inguinal lymph nodes Cranial Nerve Examination - Cranial Nerves Cranial Nerve II- Optic: Intact Cranial Nerve III- Oculomotor: Intact Cranial Nerve IV- Trochlear: Intact Cranial Nerve V- Trigeminal: Intact Cranial Nerve - Abducens: Intact Cranial Nerve VII- Facial: Intact Cranial Nerve VIII- Auditory: Intact Cranial Nerve IX- Glossopharyngeal: Intact Cranial Nerve X- Vagus: Intact Cranial Nerve XI- Accessory: Intact Cranial Nerve XII- Hypoglossal: Intact Results Labs: Abnormal Lab Results - Last 24 Hours (Table) 03/26/19 Range/Units 16:45 Ur Amphetamines Screen Detected H (NotDetected) U Methamphetamines Scrn Detected H (NotDetected) U Marijuana (THC) Screen Detected H (NotDetected) Assessment and Plan Assessment: 43-year-old male history of COPD, mental health problems schizophrenia bipolar. Patient admitted to mental health problems petitioned by health care social worker due to noncompliance. Medicine consulted for medical management. Patient denies any active complaints at this time he doesn't take any medications at home. He reports history of COPD and seizures in the past. He is not currently on any medications he is homeless. Plan: History of schizophrenia and bipolar disorder Noncompliance Management per psych History of medical problems COPD currently stable History of seizures patient said the remote he doesn't taking medications for it DVT prophylaxis patient is ambulatory low risk Thank you for allowing us to participate in the care of this patient. We will follow peripherally. Do not hesitate to contact us with questions. Someone can be reached from the [facility] hospitalist group at all hours of the day at [phone].
[2019-03-26] MEDS: OXcarbazepine 300 MG TAB PO SCH (21:06)
[2019-03-26] MEDS: risperiDONE 2 MG TAB PO SCH (21:06)
[2019-03-26] MEDS: NICOTINE 14MG/24HR PATCH TRANSDERM SCH (21:06)
[2019-03-26] MEDS: PANTOPRAZOLE 40 MG TABLET PO SCH (21:06)
[2019-03-26] MEDS: diphenhydrAMINE 50 MG CAP PO SCH (21:06)
[2019-03-26] MEDS ORDERED: IPRATROPIUM-ALBUTEROL 3 ML NEB INHALATION PRN (21:12)
[2019-03-27 04:26] LABS: Hemoglobin A1C 5.5 % (4.0-6.0)
[2019-03-27] MEDS: NICOTINE 14MG/24HR PATCH TRANSDERM SCH (08:50)
[2019-03-27] MEDS: PANTOPRAZOLE 40 MG TABLET PO SCH ×2 (08:50→17:17)
[2019-03-27] MEDS: OXcarbazepine 300 MG TAB PO SCH ×2 (08:50→20:09)
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
[2019-03-27] MEDS: LORazepam 1 MG TAB PO PRN (18:45)
[2019-03-27] MEDS: risperiDONE 2 MG TAB PO SCH (20:09)
[2019-03-27] MEDS: diphenhydrAMINE 50 MG CAP PO SCH (20:09)
[2019-03-28] MEDS: OXcarbazepine 300 MG TAB PO SCH ×2 (09:00→20:57)
[2019-03-28] MEDS: PANTOPRAZOLE 40 MG TABLET PO SCH ×2 (09:00→17:16)
[2019-03-28] MEDS: NICOTINE 14MG/24HR PATCH TRANSDERM SCH (09:00)
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
[2019-03-28] MEDS: LORazepam 1 MG TAB PO PRN (14:44)
[2019-03-28] MEDS: NICOTINE POLACRILEX 2 MG GUM BUCCAL PRN ×2 (14:59→20:59)
[2019-03-28] MEDS: risperiDONE 2 MG TAB PO SCH (20:57)
[2019-03-28] MEDS: diphenhydrAMINE 50 MG CAP PO SCH (20:57)
[2019-03-29] MEDS: PANTOPRAZOLE 40 MG TABLET PO SCH ×2 (08:40→17:05)
[2019-03-29] MEDS: OXcarbazepine 300 MG TAB PO SCH ×2 (08:40→21:00)
[2019-03-29] MEDS: NICOTINE POLACRILEX 2 MG GUM BUCCAL PRN ×3 (11:46→21:01)
--- NOTE | 2019-03-29 11:46 | P.PN ---
Progress Note - Text Progress Note Date: 03/29/19 Interval History: Patient is a 43-year-old male was found in his room sleeping easily awakened and came to the interview room. Patient complains that he is still feeling "spinning" states he still feeling tired. He then made the comment that "that stuff will kill you, I am thinking about 2 g of black tar" patient then states that he in a way wants to but isn't thinking about suicide and then in the next sentence stated he doesn't want to . He then complained about worrying about his children stating that people were tampering with Facebook and stated it was Pedro S. Patient then requested that he go to drug rehab after discharge. Mental Status: Appearance/Attitude: Patient is casually dressed, makes eye contact and is cooperative Behavior: And does not exhibit any psychomotor agitation or retardation Speech/Language: Patient's speech is spontaneous, normal volume and rhythm and he is coherent Thought Process: Patient responds to some questions in a goal-directed fashion at other times the patient's comments have no relevance to our conversation. Thought Content: Patient denies any auditory or visual hallucinations but continues to express paranoid ideation regarding someone tampering with Facebook, concerns about his daughter and then states it's all due to Pedro S. Patient is sleeping into the early afternoon stating that he is tired, patient states that he needs to eat. Suicidal/Homicidal Ideation: Patient will make the comment that he in a way wants to and then in the next sentence states that he doesn't want to commit suicide and denies any current homicidal ideation Sensorium/Cognition: Patient is alert and oriented to person, location and situation Mood/Affect: Patient's mood is slightly irritable and his affect is appropriate to his mood Insight/Judgment: Patient's insight and judgment are impaired Assessment: Patient continues to make disjointed comments regarding wanting to and then not wanting to , talking about people altering and tampering with Facebook and concerns about his daughter and then he states he's not sure how many children he has, blaming it on Pedro S. Patient became agitated last night requiring oral Ativan. Patient then asks for drug rehab after discharge. Patient is sleeping into the early afternoon at least 10 or 11 hours a day. Plan: Patient will continue on his current medication of Risperdal 4 mg at bedtime his Risperdal long-acting injectable is due on April 01. Will discuss with community mental health whether the patient is to go for drug rehab or not, patient does have a guardian is unclear where he'll return to live after discharge. Patient continues to require hospitalization to further stabilize his mood and psychotic symptoms
[2019-03-29] MEDS: LORazepam 1 MG TAB PO PRN ×2 (12:32→21:04)
[2019-03-29] MEDS: risperiDONE 2 MG TAB PO SCH (21:01)
[2019-03-29] MEDS: diphenhydrAMINE 50 MG CAP PO SCH (21:01)
[2019-03-30 05:25] VITALS: BMI 23.3
[2019-03-30] MEDS: PANTOPRAZOLE 40 MG TABLET PO SCH ×2 (08:10→17:42)
[2019-03-30] MEDS: OXcarbazepine 300 MG TAB PO SCH ×2 (08:10→20:31)
[2019-03-30] MEDS: LORazepam 1 MG TAB PO PRN ×2 (08:12→14:20)
[2019-03-30] MEDS: NICOTINE POLACRILEX 2 MG GUM BUCCAL PRN ×3 (08:12→17:43)
--- NOTE | 2019-03-30 11:52 | P.PN ---
Progress Note - Text Progress Note Date: 03/30/19 Interval History: Patient is a 43-year-old male who was seen today, he was up this morning for breakfast, he states his nerves are little shot he is worried about his daughter and possibly other daughters that he may have. He states that he is worried about horse games referring to drugs in sex and states "I want to be me". Patient also stated that he would like to follow-up with his plans to go for inpatient rehab. Patient stated that he is eating well and again stated that he's paranoid about biker gangs and speed Mental Status: Appearance/Attitude: Patient is casually dressed, makes eye contact and is cooperative Behavior: Patient does not exhibit any psychomotor agitation or retardation Speech/Language: Patient's speech is spontaneous of normal volume and rhythm and he is coherent Thought Process: Patient responds to questions in a goal-directed fashion although he is focused mainly on drugs, the people are after him Thought Content: Patient denies any auditory or visual hallucinations, he continues to talk about drugs and sex people being after him at the hotel where he was living, stated today that his nerves are shot and that he is worried about his daughter doesn't know if he has more than 1. Patient did request that he go to inpatient drug rehab. Patient slept well and was up this morning for breakfast. Suicidal/Homicidal Ideation: Patient denies any current suicidal or homicidal ideation Sensorium/Cognition: Patient is alert and oriented to person, place, and time and his recent and remote memory are grossly intact Mood/Affect: Patient's mood is less guarded and his affect is appropriate Insight/Judgment: Patient's insight and judgment are limited Assessment: Patient states today that he slept well and was up for breakfast, he states his nerves are still a little shot and he is worried about his daughter. He continues to be focused on drugs today was about biker gangs and speed, but did request going for inpatient rehab. Patient reports no side effects from his medications. Plan: Patient continues on Risperdal 4 mg at bedtime and his next long-acting injection is due on April 01. He also continues on Trileptal for his seizure disorder. Patient will be given access numbers for inpatient rehab and will be encouraged to call today to begin the intake process. Patient is under a court order for substance use treatment. Patient continues to require hospitalization to further stabilize his psychotic symptoms.
[2019-03-30] MEDS: diphenhydrAMINE 50 MG CAP PO SCH (20:31)
[2019-03-30] MEDS: risperiDONE 2 MG TAB PO SCH (20:31)
[2019-03-31] MEDS: OXcarbazepine 300 MG TAB PO SCH ×2 (08:53→20:12)
[2019-03-31] MEDS: PANTOPRAZOLE 40 MG TABLET PO SCH ×2 (08:53→16:33)
[2019-03-31] MEDS: NICOTINE POLACRILEX 2 MG GUM BUCCAL PRN ×4 (08:55→20:12)
--- NOTE | 2019-03-31 12:16 | P.PN ---
Progress Note - Text Progress Note Date: 03/31/19 Interval History: Patient is a 43-year-old male who was seen today, he states he had some weird dreams last night but didn't sleep well and was up for breakfast. Patient states that he is aware he is going to [facility] at 2 in the afternoon and states he is aware he'll be transported there. Patient states that residing any side effects from his medication. Mental Status: Appearance/Attitude: Patient is casually dressed, makes eye contact and was cooperative. Behavior: Patient did not display any psychomotor agitation or retardation. Speech/Language: Speech was normal volume and rhythm and he was coherent Thought Process: Patient's thought processes were goal-directed there is no evidence of loose association or flight of ideas Thought Content: Patient denied any auditory or visual hallucinations no delusions or paranoid ideation were elicited. Patient did not discuss issues revolving around drugs, someone being out to get him. Patient was aware that he would be going to [facility] and is aware that he is on a court order for treatment. Patient reports that he sleeping well and got up for breakfast and is feeling rested but did have some weird dreams last evening. He reports that his appetite is good. Suicidal/Homicidal Ideation: Patient denied any current suicidal or homicidal ideation Sensorium/Cognition: Patient is alert and oriented to person, place, time and his recent and remote memory grossly intact, patient's thinking is much clearer today Mood/Affect: Patient's mood was pleasant and his affect was appropriate Insight/Judgment: Patient's insight and judgment are fair Assessment: Patient states that he slept well had some weird dreams but was up for breakfast and is feeling rested, patient states his thinking is clear and he no longer discussed drugs, someone coming after him as he has on past interviews. Patient reported no side effects from his medication. Plan: Patient will continue on Risperdal 4 mg at bedtime, Trileptal 600 mg twice a day and will receive Risperdal Consta 50 mg tomorrow. Patient will be going to [facility] at 2 PM and will be transferred there directly from this facility. Patient was aware of the plan and is in agreement.
[2019-03-31] MEDS: LORazepam 1 MG TAB PO PRN (16:33)
[2019-03-31] MEDS: risperiDONE 2 MG TAB PO SCH (20:11)
[2019-03-31] MEDS: diphenhydrAMINE 50 MG CAP PO SCH (20:12)
[2019-04-01] MEDS: OXcarbazepine 300 MG TAB PO SCH ×2 (08:02→21:24)
[2019-04-01] MEDS: PANTOPRAZOLE 40 MG TABLET PO SCH ×2 (08:02→16:40)
[2019-04-01] MEDS: NICOTINE POLACRILEX 2 MG GUM BUCCAL PRN ×4 (08:50→21:27)
--- NOTE | 2019-04-01 11:52 | P.PN ---
Progress Note - Text Progress Note Date: 04/01/19 Interval History: Patient is a 43-year-old male who was seen today and he reports that he is doing much better, states that he is not having the thoughts that he had when he came in about the [employer] gangs states that he is no longer feeling as patient states that he slept fairly well last evening and his appetite is good, stating that he is eating more than he has been. Patient states that he is ready to go to rehab. Mental Status: Appearance/Attitude: Patient is neatly dressed, makes eye contact and is cooperative Behavior: Patient does not display any psychomotor agitation or retardation Speech/Language: Patient's speech is spontaneous and normal volume and rhythm and he is coherent Thought Process: Patient is goal-directed there is no evidence of loose association or flight of ideas Thought Content: Patient denies any auditory or visual hallucinations and no delusional or paranoid ideation is elicited. Patient states that he sleeping well and his appetite has improved and he is eating well. He states that his mood is good and he feels better. Suicidal/Homicidal Ideation: Patient denies any current suicidal or homicidal ideation Sensorium/Cognition: Patient is alert and oriented to person, place, and time and his recent and remote memory are grossly intact patient's ability to focus and concentrate has improved Mood/Affect: Patient's mood is less guarded and his affect is appropriate Insight/Judgment: Patient's insight and judgment are fair Assessment: Patient states that he is doing much better states his thinking is clearer and he is less suspicious and paranoid about things. Patient does not verbalize any paranoid ideation. Patient denies any suicidal ideation at this time. Patient is ready to go to inpatient substance abuse treatment and will be transported there tomorrow. Patient states he denied any side effects from his medication and has been attending some groups and activities. Plan: Patient will continue on Risperdal 4 mg at bedtime, Trileptal 600 mg twice a day and will receive his next injection of Risperdal Consta 50 mg today. Patient will be transferred to [facility] for inpatient substance use tomorrow and he is in agreement with this plan.
[2019-04-01] MEDS: LORazepam 1 MG TAB PO PRN ×2 (12:21→21:23)
[2019-04-01] MEDS: risperiDONE 2 MG TAB PO SCH (21:23)
[2019-04-01] MEDS: diphenhydrAMINE 50 MG CAP PO SCH (21:24)
[2019-04-02 07:18] VITALS: BP 141/72; PULSE 67; RESP 16; TEMP 98
[2019-04-02] MEDS: PANTOPRAZOLE 40 MG TABLET PO SCH (07:47)
[2019-04-02] MEDS: OXcarbazepine 300 MG TAB PO SCH (09:26)
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
[2019-04-02] MEDS: NICOTINE POLACRILEX 2 MG GUM BUCCAL PRN (11:59)
== END 2019-04-02 13:12 | DRG 885 ==
LOC: EC 11:45 → 3MHU 15:50
PROVIDERS: ADMIT Psychiatry & Neurology Psychiatry; ATTEND Psychiatry & Neurology Psychiatry
DX: F25.0 Schizoaffective disorder, bipolar type (principal); F17.200 Nicotine dependence, unspecified, uncomplicated; J44.9 Chronic obstructive pulmonary disease, unspecified; K21.9 Gastro-esophageal reflux disease without esophagitis; M41.9 Scoliosis, unspecified; G40.909 Epilepsy, unspecified, not intractable, without status epilepticus; F60.0 Paranoid personality disorder; F12.20 Cannabis dependence, uncomplicated; F15.10 Other stimulant abuse, uncomplicated; Z59.0 Homelessness; Z79.899 Other long term (current) drug therapy; Z91.09 Other allergy status, other than to drugs and biological substances
CPT/HCPCS: 80183; 80306; 82075; 83036; 99285

== ENCOUNTER 2019-07-31 01:08 | Inpatient (IN) | payer MEDICARE, MEDICAID ==
[2019-07-31] MEDS ORDERED: LORazepam 2 MG/ML INJ IV STA (01:42)
--- NOTE | 2019-07-31 02:44 | ED ---
Psych HPI - General Chief Complaint: Psychiatric Symptoms Stated Complaint: Mental Health Time Seen by Provider: 07/31/19 01:34 Source: patient Mode of arrival: ambulatory - History of Present Illness Initial Comments: 43-year-old male history of multi-substance drug abuse presents emergency department today for chief complaint of suicidal ideation with plan. Patient states he planned on having By copy manager he states he wanted to attempt to stab himself and have a police magistrate shoot him. Patient states when he does methamphetamine this causes him to have psychosis. He states he did smoke meth today. Patient admit to IVDU. Denies CP, SOB, nausea, vomiting, abdominal, back pain or any other complaints. Patient denies homicidal ideations, admits to paranoia. Denies ingestions of specific medications in attempt at overdose. Patient appears anxious on exam. Darting eyes. - Related Data Previous Rx's Medication Instructions Recorded Omeprazole [PriLOSEC] 20 mg PO AC-BID #56 capsule. 04/02/19 diphenhydrAMINE [Benadryl] 50 mg PO HS #28 cap 04/02/19 Allergies Allergy/AdvReac Type Severity Reaction Status Date / Time cat dander Allergy Itching Verified 03/26/19 12:46 Review of Systems ROS Statement: Those systems with pertinent positive or pertinent negative responses have been documented in the HPI. ROS Other: All systems not noted in ROS Statement are negative. Past Medical History Past Medical History: COPD, GERD/Reflux, Musculoskeletal Disorder, Seizure Disorder Additional Past Medical History / Comment(s): scoliosis, herpes, hiatal hernia, migraines History of Any Multi-Drug Resistant Organisms: None Reported Past Surgical History: No Surgical Hx Reported Additional Past Surgical History / Comment(s): EGD about 10 years ago Past Anesthesia/Blood Transfusion Reactions: No Reported Reaction Past Psychological History: Anxiety, Bipolar, Depression, Schizoaffective Disorder Smoking Status: Current every day smoker - Past Family History Mother History Unknown: Yes Father History Unknown: Yes General Exam - General Exam Comments Initial Comments: General: The patient is awake and alert, in no distress Eye: +4 mm pupils are equal, round and reactive to light, extra-ocular movements are intact. No nystagmus. There is normal conjunctiva bilaterally. No signs of icterus. Ears, nose, mouth and throat: There are moist mucous membranes and no oral lesions. Neck: The neck is supple, there is no tenderness or JVD. Cardiovascular: There is a regular rate and rhythm. No murmur, rub or gallop is appreciated. Respiratory: Lungs are clear to auscultation, respirations are non-labored, breath sounds are equal. No wheezes, stridor, rales, or rhonchi. Gastrointestinal: Soft, non-distended, non-tender abdomen without masses or organomegaly noted. There is no rebound or guarding present. Musculoskeletal: Normal ROM, no tenderness. Strength 5/5. Sensation intact. Radial pulses equal bilaterally 2+. Neurological: A&O x 3. CN II-XII intact, There are no obvious motor or sensory deficits. Coordination appears grossly intact. Speech is normal. Skin: Skin is warm and dry and no rashes or lesions are noted. Psychiatric: Darting eye, pressured speech Limitations: no limitations Course Vital Signs 07/31/19 07/31/19 01:12 02:48 Temperature 97.9 F Pulse Rate 120 H 71 Respiratory 20 Rate Blood Pressure 128/85 O2 Sat by Pulse 97 98 Oximetry Medical Decision Making - Medical Decision Making 43yo male presenting for suicidal ideations with plan. medically cleared. EPS evaluated. Admission recommended. Certified by Marilin Martinez. Patient transferred to psych floor appearing well. - Lab Data Result diagrams: 07/31/19 02:24 07/31/19 02:24 Lab Results 07/31/19 07/31/19 07/31/19 Range/Units 02:24 02:24 02:50 WBC 10.1 (3.8-10.6) k/uL RBC 4.76 (4.30-5.90) m/uL Hgb 14.6 (13.0-17.5) gm/dL Hct 42.4 (39.0-53.0) % MCV 89.2 (80.0-100.0) fL MCH 30.7 (25.0-35.0) pg MCHC 34.4 (31.0-37.0) g/dL RDW 13.3 (11.5-15.5) % Plt Count 295 (150-450) k/uL Neutrophils % 71 % Lymphocytes % 17 % Monocytes % 6 % Eosinophils % 4 % Basophils % 1 % Neutrophils # 7.2 (1.3-7.7) k/uL Lymphocytes # 1.7 (1.0-4.8) k/uL Monocytes # 0.6 (0-1.0) k/uL Eosinophils # 0.4 (0-0.7) k/uL Basophils # 0.1 (0-0.2) k/uL Sodium 139 (137-145) mmol/L Potassium 3.6 (3.5-5.1) mmol/L Chloride 102 (98-107) mmol/L Carbon Dioxide 26 (22-30) mmol/L Anion Gap 11 mmol/L BUN 16 (9-20) mg/dL Creatinine 1.13 (0.66-1.25) mg/dL Est GFR (CKD-EPI)AfAm >90 (>60 ml/min/1.73 sqM) Est GFR (CKD-EPI)NonAf 79 (>60 ml/min/1.73 sqM) Glucose 137 H (74-99) mg/dL Calcium 9.3 (8.4-10.2) mg/dL Total Bilirubin 0.3 (0.2-1.3) mg/dL AST 17 (17-59) U/L ALT 16 L (21-72) U/L Alkaline Phosphatase 73 (38-126) U/L Total Protein 6.8 (6.3-8.2) g/dL Albumin 4.1 (3.5-5.0) g/dL Urine Color Yellow Urine Appearance Cloudy (Clear) Urine pH 7.0 (5.0-8.0) Ur Specific [place] 1.018 (1.001-1.035) Urine Protein Negative (Negative) Urine Glucose (UA) Negative (Negative) Urine Ketones Negative (Negative) Urine Blood Negative (Negative) Urine Nitrite Negative (Negative) Urine Bilirubin Negative (Negative) Urine Urobilinogen <2.0 (<2.0) mg/dL Ur Leukocyte Esterase Negative (Negative) Urine RBC 1 (0-5) /hpf Urine WBC 1 (0-5) /hpf Amorphous Sediment Rare H (None) /hpf Hyaline Casts 2 (0-2) /lpf Urine Mucus Rare H (None) /hpf Urine Opiates Screen Not Detected (NotDetected) Ur Oxycodone Screen Not Detected (NotDetected) Urine Methadone Screen Not Detected (NotDetected) Ur Propoxyphene Screen Not Detected (NotDetected) Ur Barbiturates Screen Not Detected (NotDetected) U Tricyclic Antidepress Not Detected (NotDetected) Ur Phencyclidine Scrn Not Detected (NotDetected) Ur Amphetamines Screen Detected H (NotDetected) U Methamphetamines Scrn Detected H (NotDetected) U Benzodiazepines Scrn Not Detected (NotDetected) Urine Cocaine Screen Not Detected (NotDetected) U Marijuana (THC) Screen Detected H (NotDetected) Disposition Clinical Impression: Suicidal ideation Disposition: TRANSFER TO PSYCH HOSP/UNIT Condition: Serious Is patient prescribed a controlled substance at d/c from ED?: No [facility] - 1-2 days Time of Disposition: 03:36 Decision to Admit Reason: Admit from [facility] Decision Date: 07/31/19 Decision Time: 03:36
[2019-07-31 02:57] LABS: Basophils # (A) 0.1 k/uL (0-0.2); Basophils % (A) 1 %; Eosinophils # (A) 0.4 k/uL (0-0.7); Eosinophils % (A) 4 %; HCT 42.4 % (39.0-53.0); HGB 14.6 gm/dL (13.0-17.5); Lymphocytes # (A) 1.7 k/uL (1.0-4.8); Lymphocytes % (A) 17 %; MCH 30.7 pg (25.0-35.0); MCHC 34.4 g/dL (31.0-37.0); MCV 89.2 fL (80.0-100.0); Mean Platelet Volume 5.9; Monocytes # (A) 0.6 k/uL (0-1.0); Monocytes % (A) 6 %; Neutrophils # (A) 7.2 k/uL (1.3-7.7); Neutrophils % (A) 71 %; Platelet Count 295 k/uL (150-450); RBC 4.76 m/uL (4.30-5.90); RDW 13.3 % (11.5-15.5); WBC 10.1 k/uL (3.8-10.6)
[2019-07-31 02:59] LABS: ALT 16 U/L (21-72); AST 17 U/L (17-59); African American GFR (CKD) >90 (>60 ml/min/1.73 sqM); Albumin 4.1 g/dL (3.5-5.0); Alkaline Phosphatase 73 U/L (38-126); Anion Gap 11 mmol/L; Blood Urea Nitrogen 16 mg/dL (9-20); Calcium 9.3 mg/dL (8.4-10.2); Carbon Dioxide 26 mmol/L (22-30); Chloride 102 mmol/L (98-107); Glucose 137 mg/dL (74-99); Non-African American GFR(CKD) 79 (>60 ml/min/1.73 sqM); Potassium 3.6 mmol/L (3.5-5.1); Sodium 139 mmol/L (137-145); Total Bilirubin 0.3 mg/dL (0.2-1.3); Total Protein 6.8 g/dL (6.3-8.2)
[2019-07-31 03:15] LABS: Amorphous Sediment,Urine Rare /hpf; Appearance,Urine Cloudy (Clear); Bilirubin,Urine Negative (Negative); Blood,Urine Negative (Negative); Color,Urine Yellow; Glucose,Urine (UA) Negative (Negative); Hyaline Casts,Urine 2 /lpf (0-2); Ketones,Urine Negative (Negative); Leukocyte Esterase,Urine Negative (Negative); Mucus,Urine Rare /hpf; Nitrite,Urine Negative (Negative); Protein,Urine Negative (Negative); RBC,Urine 1 /hpf (0-5); Specific Gravity,Urine 1.018 (1.001-1.035); Urobilinogen,Urine <2.0 mg/dL (<2.0); WBC,Urine 1 /hpf (0-5)
[2019-07-31 03:22] LABS: Amphetamine Screen,Urine Detected (NotDetected); Barbiturate Screen,Urine Not Detected (NotDetected); Benzodiazepines Screen,Urine Not Detected (NotDetected); Cocaine Screen,Urine Not Detected (NotDetected); Methadone Screen, Urine Not Detected (NotDetected); Opiate Screen,Urine Not Detected (NotDetected); Oxycodone Screen, Urine Not Detected (NotDetected); Phencyclidine Screen,Urine Not Detected (NotDetected); Tricyclic Antidepressant,Urine Not Detected (NotDetected); Urn Cannabinoid Scrn Detected (NotDetected)
[2019-07-31] MEDS ORDERED: ZIPRASIDONE 20 MG VIAL IM STA (03:50)
[2019-07-31] MEDS ORDERED: ACETAMINOPHEN TAB 325 MG TAB PO PRN (04:07)
[2019-07-31] MEDS ORDERED: MAGNESIUM HYDROXIDE 2,400 MG/10 ML CUP PO PRN (04:07)
[2019-07-31 04:10] LABS: Hepatitis A Antibody IgM NEGATIVE
[2019-07-31] MEDS ORDERED: MAG HYDROX/AL HYDROX/SIMETH 30 ML CUP PO PRN (08:00)
[2019-07-31] MEDS ORDERED: NICOTINE 14MG/24HR PATCH TRANSDERM SCH (09:00)
--- NOTE | 2019-07-31 12:00 | P.HP ---
Psychiatric H&P - . H&P Date: 07/31/19 History & Physical: Allergies Allergy/AdvReac Type Severity Reaction Status Date / Time cat dander Allergy Itching Verified 07/31/19 11:17 Vital Signs Temp 97.9 F 07/31/19 06:18 Pulse 79 07/31/19 06:18 Resp 18 07/31/19 06:18 BP 137/83 07/31/19 06:18 Pulse Ox 98 07/31/19 02:48 Intake & Output 07/30/19 07/31/19 07/31/19 18:59 06:59 18:59 Weight 58.967 kg Laboratory Last Values WBC 10.1 k/uL (3.8-10.6) 07/31/19 02:24 RBC 4.76 m/uL (4.30-5.90) 07/31/19 02:24 Hgb 14.6 gm/dL (13.0-17.5) 07/31/19 02:24 Hct 42.4 % (39.0-53.0) 07/31/19 02:24 MCV 89.2 fL (80.0-100.0) 07/31/19 02:24 MCH 30.7 pg (25.0-35.0) 07/31/19 02:24 MCHC 34.4 g/dL (31.0-37.0) 07/31/19 02:24 RDW 13.3 % (11.5-15.5) 07/31/19 02:24 Plt Count 295 k/uL (150-450) 07/31/19 02:24 Neutrophils % 71 % 07/31/19 02:24 Lymphocytes % 17 % 07/31/19 02:24 Monocytes % 6 % 07/31/19 02:24 Eosinophils % 4 % 07/31/19 02:24 Basophils % 1 % 07/31/19 02:24 Neutrophils # 7.2 k/uL (1.3-7.7) 07/31/19 02:24 Lymphocytes # 1.7 k/uL (1.0-4.8) 07/31/19 02:24 Monocytes # 0.6 k/uL (0-1.0) 07/31/19 02:24 Eosinophils # 0.4 k/uL (0-0.7) 07/31/19 02:24 Basophils # 0.1 k/uL (0-0.2) 07/31/19 02:24 Sodium 139 mmol/L (137-145) 07/31/19 02:24 Potassium 3.6 mmol/L (3.5-5.1) 07/31/19 02:24 Chloride 102 mmol/L (98-107) 07/31/19 02:24 Carbon Dioxide 26 mmol/L (22-30) 07/31/19 02:24 Anion Gap 11 mmol/L 07/31/19 02:24 BUN 16 mg/dL (9-20) 07/31/19 02:24 Creatinine 1.13 mg/dL (0.66-1.25) 07/31/19 02:24 Est GFR (CKD-EPI)AfAm >90 (>60 ml/min/1.73 sqM) 07/31/19 02:24 Est GFR (CKD-EPI)NonAf 79 (>60 ml/min/1.73 sqM) 07/31/19 02:24 Glucose 137 mg/dL (74-99) H 07/31/19 02:24 Calcium 9.3 mg/dL (8.4-10.2) 07/31/19 02:24 Total Bilirubin 0.3 mg/dL (0.2-1.3) 07/31/19 02:24 AST 17 U/L (17-59) 07/31/19 02:24 ALT 16 U/L (21-72) L 07/31/19 02:24 Alkaline Phosphatase 73 U/L (38-126) 07/31/19 02:24 Total Protein 6.8 g/dL (6.3-8.2) 07/31/19 02:24 Albumin 4.1 g/dL (3.5-5.0) 07/31/19 02:24 Urine Color Yellow 07/31/19 02:50 Urine Appearance Cloudy (Clear) 07/31/19 02:50 Urine pH 7.0 (5.0-8.0) 07/31/19 02:50 Ur Specific [place] 1.018 (1.001-1.035) 07/31/19 02:50 Urine Protein Negative (Negative) 07/31/19 02:50 Urine Glucose (UA) Negative (Negative) 07/31/19 02:50 Urine Ketones Negative (Negative) 07/31/19 02:50 Urine Blood Negative (Negative) 07/31/19 02:50 Urine Nitrite Negative (Negative) 07/31/19 02:50 Urine Bilirubin Negative (Negative) 07/31/19 02:50 Urine Urobilinogen <2.0 mg/dL (<2.0) 07/31/19 02:50 Ur Leukocyte Esterase Negative (Negative) 07/31/19 02:50 Urine RBC 1 /hpf (0-5) 07/31/19 02:50 Urine WBC 1 /hpf (0-5) 07/31/19 02:50 Amorphous Sediment Rare /hpf (None) H 07/31/19 02:50 Hyaline Casts 2 /lpf (0-2) 07/31/19 02:50 Urine Mucus Rare /hpf (None) H 07/31/19 02:50 Urine Opiates Screen Not Detected (NotDetected) 07/31/19 02:50 Ur Oxycodone Screen Not Detected (NotDetected) 07/31/19 02:50 Urine Methadone Screen Not Detected (NotDetected) 07/31/19 02:50 Ur Propoxyphene Screen Not Detected (NotDetected) 07/31/19 02:50 Ur Barbiturates Screen Not Detected (NotDetected) 07/31/19 02:50 U Tricyclic Antidepress Not Detected (NotDetected) 07/31/19 02:50 Ur Phencyclidine Scrn Not Detected (NotDetected) 07/31/19 02:50 Ur Amphetamines Screen Detected (NotDetected) H 07/31/19 02:50 U Methamphetamines Scrn Detected (NotDetected) H 07/31/19 02:50 U Benzodiazepines Scrn Not Detected (NotDetected) 07/31/19 02:50 Urine Cocaine Screen Not Detected (NotDetected) 07/31/19 02:50 U Marijuana (THC) Screen Detected (NotDetected) H 07/31/19 02:50 Hepatitis A IgM Ab NEGATIVE 07/31/19 02:40 07/31/19 11:45 IDENTIFYING DATA: Patient is a 43-year-old male with a history of polysubstance abuse and psychosis HPI: Patient presented to the hospital yesterday with complaints of suicidal ideations with a plan to have himself shot by police and stabbed himself according to ER report. Patient also admitted to having used methamphetamine earlier that day. Patient was admitted to the MHU on petition and certification. Patient was seen by television script writer this morning and patient appeared to be irritable and hostile and did not want to leave his room. Patient had his sheets covering his face and his entire body during the interview and refused to remove it. Patient was also restless during the interview and moving his legs trying to get comfortable. Patient was loud at times and demanding to television script writer and telling him to leave fpc during the interview. Patient told the television script writer to "tell your friends to leave me alone" and spoke about other paranoid delusions as patient spoke about "why are they coming after me from the [place] [facility], I didn't do anything to them?!". Patient was bizarre and disorganized in his thoughts and appeared to be actively responding to internal stimuli. When patient was asked about his medications patient became upset and stated "I don't know what I'm on talk to ". Patient did admit having a long-acting injection given to him recently. He admitted to polysubstance use including methamphetamine use yesterday. He states that he is agitated and has poor sleep at this time however is currently denying suicidal ideations. Patient denies any homicidal ideations intent or plan. At this time patient denies any auditory or visual hallucinations. Patient does have flight of ideas and racing thoughts. Patient admits to using and methamphetamine and marijuana however does not give quantity. He also admits to using cigarettes daily. PAST PSYCHIATRIC HISTORY: Patient states that he has a history of psychosis along with polysubstance abuse including methamphetamine and cannabis. Patient has been admitted several times to the mental health unit most recently admitted on 03/2019. At that time he was put on Risperdal Consta 50 mg every 2 weeks and also Trileptal for seizures. Patient follows up with [facility] Dr. Fernandes and has since been put on Prolixin D 50 mg every 7 days and last was given on 07/28/2019 according to EMR. PMH: Admits to COPD, GERD, seizure disorder, migraines. Patient states that he does not take any medications for seizure disorder at this time and when asked about Trileptal which she previously was on he states that "that makes my seizures worse" ALLERGIES: as per EMR CHEMICAL DEPENDENCY HISTORY: as per HPI FAMILY PSYCHIATRIC/SUBSTANCE USE HISTORY: Patient refused to answer this question. SOCIAL HISTORY: Patient was born and raised in [place] and his parents are . 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 Patient is currently collecting Social Security disability. Patient was never . MENTAL STATUS EXAM: General Appearance: Patient appears to be older than stated age is alert, restless and uncooperative. Patient has poor hygiene and grooming and appears to be bizarre and agitated. Behavior: Patient is lying in bed with the sheets covering his body and face is argumentative and agitated. Speech: Patient's speech is loud with threatening tone. Mood/Affect: Patient reports their mood is depressed and agitated, affect is congruent and labile. Suicidality/Homicidality: Patient denies having any suicidal or homicidal ideation intent or plan. Perceptions: Denies any auditory or visual hallucinations. Though content/process: There is an is paranoid, delusional illogical and bizarre in his thought content. Memory and concentration: AOX3, grossly intact for the purposes of this session. Cannot spell "WORLD" backwards, has poor attention span. Judgment and insight: Poor/impulsive STRENGTHS/WEAKNESSES: strength is that patient is resilient, weaknesses that patient has history of polysubstance abuse. INTELLECT: Below average IMPRESSIONS: Schizoaffective bipolar type. Methamphetamine abuse Cannabis abuse Nicotine dependence PLAN: -Patient is admitted under voluntary status to MHU for stabilization of psychiatric symptoms and safety. Patient signed adult voluntary form and medication consent and is placed in patient's chart. -Medications : Will start patient on Geodon 20 mg twice a day for psychosis/mood stabilization. This medication can be titrated up as needed/tolerated. As per nursing report, patient received Prolixin D 50 mg last on 07/28/2019 and receives this every 7 days. We'll need to confirm this with [facility]. -Ativan and Geodon PRN for agitation/aggression -Ordered EKG -Patient was counselled on substance abuse, will continue to reevaluate if patient will be interested in inpatient rehab on discharge. -Patient was informed of the risks, benefits and side effects of the medication and patient verbally consented to taking the medications. Patient signed med consent form and was placed in chart. -NRT -Nicorette gum -Will await for internal medicine to evaluate patient and give recommendations. At this time patient claims that he does not take seizure medications and became aggravated when television script writer asked about Trileptal which was documented in the past to help him patient declined the medication and stated that "it makes my seizures worse". -GERTRUDE on board for discharge planning 07/31/19 11:59
[2019-07-31] MEDS: NICOTINE POLACRILEX 2 MG GUM BUCCAL PRN (12:04)
[2019-07-31] MEDS: ZIPRASIDONE 20 MG CAP PO SCH ×2 (12:04→21:06)
[2019-07-31 13:27] LABS: HIV 1 AB Non-Reactive (Non-Reactive); HIV 2 AB Non-Reactive (Non-Reactive); HIV AB P24 Non-Reactive (Non-Reactive); HIV P24 AG Non-Reactive (Non-Reactive)
[2019-07-31 14:18] LABS: Hepatitis B Core IgM Non-Reactive (Non-Reactive); Hepatitis B Surface Antigen Non-Reactive (Non-Reactive); Hepatitis C IgG Antibody Non-Reactive (Non-Reactive)
--- NOTE | 2019-07-31 15:28 | P.HPMEDMHU ---
History of Present Illness H&P Date: 07/31/19 Chief Complaint: Suicidal ideation Patient is a 43-year-old male with a past medical history of GERD, herpes, borderline diabetes, hiatal hernia, and migraine headaches who presented to the emergency department with suicidal ideation. Currently been admitted to the mental health unit. Patient seen and examined in his room with nursing present. He initially does not want to talk to me with increased talk to me but will not allow us to turn the lights. He denies any recent cough, cold, fever, flu, nausea, vomiting, shortness of breath. He states that he has a history of COPD but when asked he states he just has breathing problems when he uses crack cocaine. He will not answer to me when he last used crack cocaine. He states he also uses methamphetamines. He then got angered when I asked if he used the illicit substance marijuana, and abdomen that is no longer illicit substance and that he has a medical marijuana card. He states that he had seizures and he is on Risperdal. He states that this was a long time ago, but then confirms that was less than 6 months ago. Review of Systems Pertinent positives and negatives as discussed in HPI, a complete review of systems was performed and all other systems are negative. Past Medical History Past Medical History: GERD/Reflux, Musculoskeletal Disorder, Seizure Disorder Additional Past Medical History / Comment(s): scoliosis, herpes, hiatal hernia, migraines History of Any Multi-Drug Resistant Organisms: None Reported Additional Past Surgical History / Comment(s): EGD about 10 years ago Past Anesthesia/Blood Transfusion Reactions: No Reported Reaction Past Psychological History: Anxiety, Bipolar, Depression, Schizoaffective Disorder Smoking Status: Current every day smoker Past Drug Use History: Cocaine, Marijuana, Methamphetamine - Past Family History Mother Additional Family Medical History / Comment(s): from suicide attempt Father History Unknown: Yes Additional Family Medical History / Comment(s): Reports that he is currently in the stages of dying- but wont clarify further. Inititally the patient stated his father was . Medications and Allergies Home Medications Medication Instructions Recorded Confirmed Type diphenhydrAMINE [Benadryl] 50 mg PO HS #28 cap 04/02/19 07/31/19 Rx Omeprazole 40 mg PO DAILY 07/31/19 07/31/19 History fluPHENAZine DECANOATE [Prolixin 50 mg IM Q7D 07/31/19 07/31/19 History Decanoate] Allergies Allergy/AdvReac Type Severity Reaction Status Date / Time cat dander Allergy Itching Verified 07/31/19 11:17 Physical Exam Osteopathic Statement: *. No significant issues noted on an osteopathic structural exam other than those noted in the History and Physical/Consult. Vitals: Vital Signs Temp Pulse Pulse Resp BP BP Pulse Ox 07/31/19 06:18 97.9 F 79 18 137/83 07/31/19 02:48 71 98 07/31/19 01:12 97.9 F 120 H 20 128/85 97 Intake and Output 07/31/19 07/31/19 07/31/19 06:59 14:59 22:59 Other: Weight 58.967 kg General: non toxic, no distress, appears at stated age, normal weight Derm: no unusual rashes/lesionso face], [warm], [dry]Hed: [trumaic], [nrmocephali],[symmetric] Ees Keeps eys close durin exam, refse light ENT: [Nos ad ears atraumatic], [no thrush], [n pharyngeal erythema] Mouth: no lip lesion, mucus membranes moist Cardiovascular: S1S2 reg, no murmur, positive posterior tibial pulse bilateral, no edema, capillary refill less than 2 seconds Lungs: CTA bilateral, no rhonchi, no rales , no accessory muscle use Ext: moving all 4 extremities independently, no contractures Neuro: CN II-XI grossly intact, Psych: Alert, oriented, angry Patient only allows limited exam Cranial Nerve Examination - Cranial Nerves Cranial Nerve II- Optic: Intact Cranial Nerve III- Oculomotor: Intact Cranial Nerve IV- Trochlear: Intact Cranial Nerve V- Trigeminal: Intact Cranial Nerve - Abducens: Intact Cranial Nerve VII- Facial: Intact Cranial Nerve VIII- Auditory: Intact Cranial Nerve IX- Glossopharyngeal: Intact Cranial Nerve X- Vagus: Intact Cranial Nerve XI- Accessory: Intact Cranial Nerve XII- Hypoglossal: Intact (as able to test) Results CBC & Chem 7: 07/31/19 02:24 07/31/19 02:24 Labs: Abnormal Lab Results - Last 24 Hours (Table) 07/31/19 07/31/19 Range/Units 02:24 02:50 Glucose 137 H (74-99) mg/dL ALT 16 L (21-72) U/L Amorphous Sediment Rare H (None) /hpf Urine Mucus Rare H (None) /hpf Ur Amphetamines Screen Detected H (NotDetected) U Methamphetamines Scrn Detected H (NotDetected) U Marijuana (THC) Screen Detected H (NotDetected) Thrombosis Risk Factor Assmnt - DVT/VTE Prophylaxis DVT/VTE Prophylaxis: Low risk, early ambulation encouraged Assessment and Plan Assessment: GERD and hiatal hernia - PPI Hx of seizure - patient thinks that were from risperdal, not currently taking antiepilectic drugs at home Borderline DM 2 - out patient follow-up, sugar mildly elevated on labs in the ED Tobacco abuse - nicotine replacement Depression - your psych management
[2019-08-01 08:37] LABS: Albumin 4.3 g/dL (3.5-5.0); Bilirubin, Delta 0.2 mg/dL (0.0-0.2); Bilirubin,Unconjugated 0.5 mg/dL (0.0-1.1); Total Bilirubin 0.7 mg/dL (0.2-1.3); Total Protein 7.4 g/dL (6.3-8.2)
[2019-08-01] MEDS: ZIPRASIDONE 20 MG CAP PO SCH ×2 (09:06→20:28)
[2019-08-01] MEDS: NICOTINE POLACRILEX 2 MG GUM BUCCAL PRN (09:09)
--- NOTE | 2019-08-01 13:12 | P.PN ---
Progress Note - Text Progress Note Date: 08/01/19 This is a psychiatric progress note as a cross coverage for Dr. Hughes. Chief complaint: "I want to contact [facility] " Subjective: The patient has been seen today as follow-up, chart reviewed, case discussed with the treatment team. Patient was very guarded and superficial in his answers. He denies any sleep problems and reports fair appetite. Patient reports taking his medications and denies any side effects. The patient was repeating that "I'm good, I just want to contact [facility]". Patient didn't share much information about why he wants to contact [facility], but he presented guarded and to some degree paranoid. He was superficial in his answers. Patient denies suicidal or homicidal thoughts. He denies auditory or visual hallucinations. He presents as internally preoccupied and to some degree paranoid. He denies any manic symptoms. Objective: Mental status examination; General Appearance: Patient appears to be older than stated age is alert, restless Patient has poor hygiene and grooming and appears to be agitated. Behavior: Patient was not fully cooperative. He was pacing in the unit. Speech: Patient's speech is loud with very tense tone. Mood/Affect: Patient reports their mood is "irritable", affect is congruent and labile. Suicidality/Homicidality: Patient denies having any suicidal or homicidal ideation intent or plan. Perceptions: Denies any auditory or visual hallucinations. Though content/process: There is an is paranoid, delusional illogical and bizarre in his thought content. Memory and concentration: AOX3, grossly intact for the purposes of this session. Cannot spell "WORLD" backwards, has poor attention span. Judgment and insight: Poor/impulsive Assessment: Schizoaffective bipolar type. Methamphetamine abuse Cannabis abuse Nicotine dependence Plan: Continue inpatient level of care due to continue to have mood instability symptoms, and needs further stabilization on medications Continue treatment of schizoaffective disorder Precautions: Continue 15 minutes check for safety. Consider medical consultation if any acute medical issues arise. Provide the patient individual, group therapy, substance use disorder counseling to give better insight and learn coping skills. Medications: Continue Geodon 20 mg twice daily for psychosis and mood stabilization. Collateral information from [facility] about the dose and next injection of Prolixin. Patient is currently not taking any anti-seizure medications, and no further recommendations by internal medicine for seizure treatment. Discharge patient to OUTPATIENT services upon a stabilization
[2019-08-01] MEDS: LORazepam 1 MG TAB PO PRN (17:47)
[2019-08-01 19:52] LABS: Hemoglobin A1C 5.8 % (4.0-6.0)
[2019-08-02] MEDS: ZIPRASIDONE 20 MG CAP PO SCH ×2 (08:28→20:15)
--- NOTE | 2019-08-02 09:59 | P.PN ---
Progress Note - Text Progress Note Date: 08/02/19 This is a psychiatric progress note as a cross coverage for Dr. Hughes. Chief complaint: "I feel more depressed today " Subjective: The patient has been seen today as follow-up, chart reviewed, case discussed with the treatment team. Patient was very guarded and superficial in his answers. He reports slept about 8 hours last night. Patient reports feeling more depressed today and has more bouts o feeling hopeless. He minimizes SI. Denies A/V hallucinations and denies HI. Patient reports taking his medications and denies any side effects. Patient continued to present as internally preoccupied and to some degree paranoid. He denies any manic symptoms. He reports high anxiety and has nightmares last night. Discussed with patient to increase [place] but he refused and preferred to keep the doses as it is. He requested discharge and reports "all what I need to get out of here" Objective: Mental status examination; General Appearance: Patient appears to be older than stated age is alert, restless Patient has poor hygiene and grooming and appears to be agitated. Behavior: Patient was not fully cooperative. He was pacing in the unit. Speech: Patient's speech is loud with very tense tone. Mood/Affect: Patient reports their mood is "irritable", affect is congruent and labile. Suicidality/Homicidality: Patient denies having any suicidal or homicidal ideation intent or plan. Perceptions: Denies any auditory or visual hallucinations. Though content/process: There is an is paranoid, delusional illogical and bizarre in his thought content. Memory and concentration: AOX3, grossly intact for the purposes of this session. Cannot spell "WORLD" backwards, has poor attention span. Judgment and insight: Limited Assessment: Schizo-affective bipolar type. Methamphetamine abuse Cannabis abuse Nicotine dependence Plan: Continue inpatient level of care due to continue to have mood instability symptoms, and needs further stabilization on medications Continue treatment of schizo-affective disorder Precautions: Continue 15 minutes check for safety. Consider medical consultation if any acute medical issues arise. Provide the patient individual, group therapy, substance use disorder counseling to give better insight and learn coping skills. Medications: Continue Geodon 20 mg BID for psychosis and mood stabilization. Collateral information from [facility] about the dose and next injection of Prolixin. Patient is currently not taking any anti-seizure medications, and no further recommendations by internal medicine for seizure treatment. Discharge patient to OUTPATIENT services upon a stabilization
[2019-08-02] MEDS: NICOTINE POLACRILEX 2 MG GUM BUCCAL PRN ×2 (14:45→21:58)
[2019-08-02] MEDS: LORazepam 1 MG TAB PO PRN (16:34)
[2019-08-03] MEDS: ZIPRASIDONE 20 MG CAP PO SCH (08:12)
[2019-08-03] MEDS: NICOTINE POLACRILEX 2 MG GUM BUCCAL PRN ×3 (10:56→19:00)
[2019-08-03] MEDS: PANTOPRAZOLE 40 MG TABLET PO SCH (11:00)
--- NOTE | 2019-08-03 11:39 | P.PN ---
Progress Note - Text Progress Note Date: 08/03/19 Interval History: Patient was seen in his room laying down and was directable and agreeable to s peak to production underwriter in the office. Patient appeared to be more cooperative and have improved hygiene this morning. Patient claims that he "messed up" and spoke about his relapse on methamphetamine and also using other recreational drugs. He stated that he was using meth daily and using it to get high. He states that he called the mine technician because he thought that someone was out to kill him. Patient was tearful when describing the events that led him to the hospitalization. He claims that he is feeling better today however feels that his mood is "up and down" and claims that lately he has been feeling more tearful. Patient claims that he is willing to start a mood stabilizer at this time to help him control his mood. He claims that his sleep has been poor however has regained some of his appetite. Patient does not endorse delusions at this time or any paranoia. At this time patient denies any suicidal or homical ideations, intent or plan. Patient denies any auditory, visual hallucinations. Patient denies any side effects from the medications and has been compliant with meds. Mental Status Exam: General Appearance: [Patient appears to be older than stated age is alert, directable today. Patient has improved hygiene and improved eye contact.] Behavior: [Patient is calmly seated without any agitated behavior.] Tearful at times. Speech: Patient's speech is fluent and nonpressured. Mood/Affect: Mood is mildly improving, affect is congruent and constricted. Suicidality/Homicidality: Patient denies having any suicidal or homicidal ideation intent or plan. Perceptions: Patient denies any auditory or visual hallucinations. Though content/process: [There is no evidence of any delusional thought content and thought process is linear and goal-directed.] Memory and concentration: AOX3, grossly intact for the purposes of this session Judgment and insight: Superficial/poor, improving mildly Assessment Schizoaffective bipolar type. Methamphetamine abuse Cannabis abuse Opioid abuse Nicotine dependence Plan: -Patient continues to meet criteria for inpatient psychiatric admission for symptom stabilization and safety. Patient has signed adult voluntary form and medication consent and was placed in patient's chart. -Medications: We'll attempt to titrate off Geodon as patient will be getting his Prolixin D injection in the next 2 days. Geodon will be decreased to 20 mg by mouth daily at bedtime for psychosis/mood stabilization. Will start patient on lithium 300 mg twice a day for mood stabilization. - As per nursing report, patient received Prolixin D 50 mg last on 07/28/2019 and receives this every 7 days. -When necessary Geodon and Ativan for agitation/aggression. -NRT -Nicorette gum -SW on board for discharge planning. Patient was counselled on substance abuse, at this time patient claims that he is willing to go back to inpatient substance abuse rehab.
[2019-08-03] MEDS: LITHIUM CARBONATE 300 MG CAP PO SCH ×2 (12:19→21:26)
[2019-08-03] MEDS: LORazepam 1 MG TAB PO PRN (19:00)
[2019-08-03] MEDS ORDERED: ZIPRASIDONE 20 MG CAP PO SCH (21:00)
[2019-08-03] MEDS: ZIPRASIDONE 20 MG VIAL IM PRN (23:57)
[2019-08-04] MEDS: LORazepam 1 MG TAB PO PRN ×3 (02:15→20:57)
[2019-08-04] MEDS: PANTOPRAZOLE 40 MG TABLET PO SCH (08:20)
[2019-08-04] MEDS: LITHIUM CARBONATE 300 MG CAP PO SCH ×2 (08:20→20:57)
[2019-08-04] MEDS: NICOTINE POLACRILEX 2 MG GUM BUCCAL PRN ×4 (08:21→20:57)
--- NOTE | 2019-08-04 11:09 | P.PN ---
Progress Note - Text Progress Note Date: 08/04/19 Interval History: Patient was seen wandering the hallways and agreeable to speak to conventional underwriter in the office. Patient appeared to be more cooperative and in directable this morning and also have improved hygiene and grooming. Patient states that he spoke with Avinash Thomas over the phone yesterday and states that he has been there before and is ready to go go back to rehab. He states that he is and will be ready to go as soon as possible. He states that he understands that using drugs is "hurt ing me bad" and claims that it is putting him in dangerous situations. Patient states that the lithium has been helping stabilize his mood and is thankful to be on the medication. He also states that he is feeling less depressed today and more optimistic about the future. He claims that he is due for his Prolixin D shot today. At this time he denies any paranoia and does not endorse any delusions. He states that he slept well last night throughout the night and denies any overt complaints. He states that his energy is improved and he has fair appetite. At this time patient denies any suicidal or homical ideations, intent or plan. Patient denies any auditory, visual hallucinations. Patient denies any side effects from the medications and has been compliant with meds. Mental Status Exam: General Appearance: Patient appears to be older than stated age is alert, directable today. Patient has improved hygiene and fair eye contact. Behavior: Patient is calmly seated without any agitated behavior. Cooperative. Speech: Patient's speech is fluent and nonpressured. Mood/Affect: Mood is improving, affect is congruent and constricted. Suicidality/Homicidality: Patient denies having any suicidal or homicidal ideation intent or plan. Perceptions: Patient denies any auditory or visual hallucinations. Though content/process: There is no evidence of any delusional thought content and thought process is linear and goal-directed. Patient is more future oriented today. Memory and concentration: AOX3, grossly intact for the purposes of this session Judgment and insight: improving mildly, future oriented. Assessment Schizoaffective, bipolar type. Methamphetamine abuse Cannabis abuse Opioid abuse Nicotine dependence Plan: -Patient continues to meet criteria for inpatient psychiatric admission for symptom stabilization and safety. Patient has signed adult voluntary form and medication consent and was placed in patient's chart. -Medications: We'll continue Geodon today. Continue with lithium 300 mg twice a day for mood stabilization. As per nursing report and [facility] report, patient received Prolixin D 50 mg last on 07/28/2019 and receives this every 7 days. Patient will be given his Prolixin D 50 mg long acting injection today. -When necessary Geodon and Ativan for agitation/aggression. -NRT -Nicorette gum -SW on board for discharge planning. Patient spoke with [facility] substance rehab program yesterday for intake and will be able to go upon discharge. Will speak with social worker assistant about making final arrangements for end of the week intake. Likely discharge tomorrow back home.
[2019-08-04] MEDS ORDERED: fluPHENAZine DECANOATE 25 MG/ML 5ML MDV IM ONE (13:30)
[2019-08-05] MEDS: LITHIUM CARBONATE 300 MG CAP PO SCH ×2 (08:11→20:09)
[2019-08-05] MEDS: PANTOPRAZOLE 40 MG TABLET PO SCH (08:11)
[2019-08-05] MEDS: NICOTINE POLACRILEX 2 MG GUM BUCCAL PRN ×4 (08:11→20:11)
[2019-08-05] MEDS: LORazepam 1 MG TAB PO PRN ×2 (13:07→20:12)
--- NOTE | 2019-08-05 13:11 | P.PN ---
Progress Note - Text Progress Note Date: 08/05/19 Interval History: Patient was seen wandering the hallways and agreeable to speak to functional tester typewriters in the office. Patient had court today to review substance use treatment order and patient was seen by functional tester typewriters after patient return from court. Patient appeared to be upset today and was initially speaking and a louder voice claiming that she disagreed with what the guardian was recommending an claims that "I need 1 or 2 days to get my house in order and kick the tenants out before I go to rehab and my guardians dodging me, they're bad people". Patient was somewhat directable and agreeable to calm down during the interview. He states that he believes he does not need a guardian at this time and claims that he would like to go through the legal process after he is discharged to try and remove his guardian. He states that he slept well last night and offers no complaints. He claims that the lithium is helping him "stay stable" and denies any depression or anxiety at this time. Patient was focused on discharge and claims that "I need to be here I need to smoke a cigarette". He states that he took his Prolixin D injection yesterday and tolerated it well. At this time he denies any paranoia and does not endorse any delusions. He states that his energy is improved and he has fair appetite. At this time patient denies any suicidal or homical ideations, intent or plan. Patient denies any auditory, visual hallucinations. Patient denies any side effects from the medications and has been compliant with meds. Mental Status Exam: General Appearance: Patient appears to be older than stated age is alert, Was initially upset but then was more directable and calm her. Patient has improved hygiene and fair eye contact. Behavior: Patient is visibly upset however was directable and not agitated. Loud at times. Speech: Patient's speech is fluent and nonpressured. Mood/Affect: Mood is improving, affect is congruent Suicidality/Homicidality: Patient denies having any suicidal or homicidal ideation intent or plan. Perceptions: Patient denies any auditory or visual hallucinations. Though content/process: There is no evidence of any delusional thought content and thought process is linear and goal-directed. focused on discharge. Memory and concentration: AOX3, grossly intact for the purposes of this session Judgment and insight: improving mildly Assessment Schizoaffective, bipolar type. Methamphetamine abuse Cannabis abuse Opioid abuse Nicotine dependence Plan: -Patient continues to meet criteria for inpatient psychiatric admission for symptom stabilization and safety. Patient has signed adult voluntary form and medication consent and was placed in patient's chart. -Medications: Continue with lithium 300 mg twice a day for mood stabilization. As per nursing report and [facility] report, patient receives weekly Prolixin D 50 mg last on 07/28/2019. Patient received his Prolixin D 50 mg long acting injection on 08/04/2019 and tolerated it well. -When necessary Geodon and Ativan for agitation/aggression. -NRT -Nicorette gum - on board for discharge planning. Patient's guardian would like patient to go directly to [facility] for inpatient substance rehab upon discharge. Patient will be discharged tomorrow to guardian and then be transferred to [facility].
[2019-08-06] MEDS: ZIPRASIDONE 20 MG VIAL IM PRN ×4 (01:53→19:47)
[2019-08-06] MEDS: PANTOPRAZOLE 40 MG TABLET PO SCH (08:58)
[2019-08-06] MEDS: LITHIUM CARBONATE 300 MG CAP PO SCH (08:58)
[2019-08-06] MEDS: NICOTINE POLACRILEX 2 MG GUM BUCCAL PRN ×3 (09:00→16:58)
[2019-08-06] MEDS ORDERED: LORazepam 2 MG/ML INJ IM STA (10:32)
[2019-08-06] MEDS ORDERED: LORazepam 2 MG/ML INJ ONE (10:35)
--- NOTE | 2019-08-06 11:50 | P.PN ---
Progress Note - Text Progress Note Date: 08/06/19 Interval History: Patient was seen wandering the hallways, and was later standing near the nurse's station yelling at people and becoming more agitated. Patient was directable and agreeable to speak to conventional mortgage underwriter in the library. Patient appeared to be somewhat labile and had a loud tone to his voice and states that he is upset because he has not been discharged yet and wants to go on "smoke a cigarette and go to rehab". Patient was noted to be physically restless and shaking his left leg and stated that his anxiety is a "29 out of 10". He claims that his mood is "fine" however there was incongruent. Patient claims that he understands that he needs to calm down however was focused on discharge. He claims that the medication is helping him. He states that he slept well last night however according to the EMR patient received a Geodon when necessary early this morning for agitation. He states that he has been going to some groups and attending to participate. He claims to have fair energy and appetite. Patient denied any suicidal or homicidal ideations intent or plan and denied any auditory or visual hallucinations. He states that he is taking his medications and denies any side effects at this time. Patient asked about his discharge, conventional mortgage underwriter explained that patient is not psychiatrically stable at this time and cannot be discharged patient got visibly upset and loud and began crying and left the room ending the conversation. Mental Status Exam: General Appearance: Patient appears to be older than stated age is alert, was visibly upset and loud/irritable. Patient has improving hygiene and fair eye contact. Behavior: Patient is visibly upset, somewhat directable yet remains irritable. Loud at times. Speech: Patient's speech is fluent and nonpressured. Loud at times. Mood/Affect: Mood is "pissed off" and anxiety is "29 out of 10", affect is incongruent and labile. Suicidality/Homicidality: Patient denies having any suicidal or homicidal ideation intent or plan. Perceptions: Patient denies any auditory or visual hallucinations. Though content/process: There is no evidence of any delusional thought content and thought process is linear and goal-directed. focused on discharge. Memory and concentration: AOX3, grossly intact for the purposes of this session Judgment and insight: Impulsive/poor today Assessment: Schizoaffective, bipolar type Methamphetamine abuse Cannabis abuse Opioid abuse Nicotine dependence Plan: -Patient continues to meet criteria for inpatient psychiatric admission for symptom stabilization and safety. Patient has signed adult voluntary form and medication consent and was placed in patient's chart. -Medications: Increased lithium 300 mg twice a day for mood stabilization. Checking lithium level tomorrow morning prior to dosing. Added scheduled Vistaril 25 mg twice a day for anxiety. -As per nursing report and [facility] report, patient receives weekly Prolixin D 50 mg last on 07/28/2019. Patient received his Prolixin D 50 mg long acting injection on 08/04/2019 and tolerated it well. -When necessary Geodon and Ativan for agitation/aggression. -NRT -Nicorette gum -SW on board for discharge planning. Patient's guardian would like patient to go directly to [facility] for inpatient substance rehab upon discharge. Patient's discharge today was canceled due to patient's aggressive/bizarre behaviors along with his labile mood. We'll continue to monitor and plan for future [facility] transfer.
[2019-08-06] MEDS: LITHIUM CARBONATE 150 MG CAP PO SCH (20:48)
[2019-08-06] MEDS: hydrOXYzine PAMOATE 25 MG CAP PO SCH (20:48)
[2019-08-06] MEDS: MUPIROCIN 2% OINT 22 GM TUBE TOPICAL SCH (20:48)
[2019-08-07] MEDS ORDERED: LORazepam 2 MG/ML INJ IM STA (01:52)
[2019-08-07] MEDS ORDERED: diphenhydrAMINE 50 MG/ML 1 ML VIAL IM STA (01:52)
[2019-08-07] MEDS: hydrOXYzine PAMOATE 25 MG CAP PO SCH ×2 (07:46→21:08)
[2019-08-07] MEDS: PANTOPRAZOLE 40 MG TABLET PO SCH (07:46)
[2019-08-07] MEDS: LITHIUM CARBONATE 150 MG CAP PO SCH ×3 (07:47→21:08)
[2019-08-07] MEDS: NICOTINE POLACRILEX 2 MG GUM BUCCAL PRN ×3 (07:47→21:08)
[2019-08-07] MEDS: MUPIROCIN 2% OINT 22 GM TUBE TOPICAL SCH ×2 (07:48→21:10)
[2019-08-07] MEDS ORDERED: OLANZapine ODT 5 MG TAB PO ONE (10:15)
--- NOTE | 2019-08-07 11:09 | P.PN ---
Progress Note - Text Progress Note Date: 08/07/19 Interval History: Patient was seen attending group and was calm and directable and agreeable to speak to abstract writer in the office. Patient appeared to be calmer this morning and more directable during conversation and more appropriate. He states that he is continuing to want to go to rehab and was focused on obtaining a cigarette to smoke. He claims that his anxiety was high yesterday because he was not able to smoke "my marijuana cigarettes". Patient appeared to be less labile today and his affect and was more organized in his thought content and process. He spoke about his mood gradually improving and that the medications have been helping him. He states that last night he felt that his roommate was staring at him and wanting to kill him and spoke to the nurses about it and had his room switched and also received PRN medications and slept after that. He states that he has been going to some groups and attending to participate. He claims to have fair energy and appetite. Patient denied any suicidal or homicidal ideations intent or plan and denied any auditory or visual hallucinations. He states that he is taking his medications and denies any side effects at this time. Patient was more appropriate and calm her and abstract writer spoke about having to delay patient's discharge, patient verbally understood and agreed to stay on the unit through the weekend. Mental Status Exam: General Appearance: Patient appears to be older than stated age is alert, more directable today. Patient has improving hygiene and fair eye contact. Behavior: Patient is calmer today and directable. Speech: Patient's speech is fluent and nonpressured. Mood/Affect: Mood is "fine" and anxiety is mildly improved, affect is congruent and less labile Suicidality/Homicidality: Patient denies having any suicidal or homicidal ideation intent or plan. Perceptions: Patient denies any auditory or visual hallucinations. Though content/process: There is no evidence of any delusional thought content and thought process is linear and goal-directed. focused on discharge. Memory and concentration: AOX3, grossly intact for the purposes of this session Judgment and insight: Impulsive/poor, mildly improving. Assessment: Schizoaffective, bipolar type Methamphetamine abuse Cannabis abuse Opioid abuse Nicotine dependence Plan: -Patient continues to meet criteria for inpatient psychiatric admission for symptom stabilization and safety. Patient has signed adult voluntary form and medication consent and was placed in patient's chart. -Medications: Continue with lithium 450 mg twice a day for mood stabilization. [place] level drawn on 08/07 - 0.6. Continue with scheduled Vistaril 25 mg twice a day for anxiety, this may be increased over the weekend if needed. Added Zyprexa 5 mg daily at bedtime for mood stabilization/psychosis/insomnia. -As per nursing report and [facility] report, patient receives weekly Prolixin D 50 mg last on 07/28/2019. Patient received his Prolixin D 50 mg long acting injection on 08/04/2019 and tolerated it well. -When necessary Megan for agitation/aggression. Discontinued all Ativan as patient is likely feeling more irritable and agitated from Ativan. -NRT -Nicorette gum - on board for discharge planning. Patient's guardian would like patient to go directly to [facility] for inpatient substance rehab upon discharge. Likely discharge her early next week if patient clinically stabilizes over the weekend.
[2019-08-07 11:32] VITALS: BMI 24.0
[2019-08-07] MEDS: OLANZapine ODT 5 MG TAB PO SCH (21:08)
[2019-08-08] MEDS: LITHIUM CARBONATE 150 MG CAP PO SCH ×2 (09:55→21:28)
[2019-08-08] MEDS: PANTOPRAZOLE 40 MG TABLET PO SCH (09:55)
[2019-08-08] MEDS: hydrOXYzine PAMOATE 25 MG CAP PO SCH ×2 (09:55→21:27)
[2019-08-08] MEDS: MUPIROCIN 2% OINT 22 GM TUBE TOPICAL SCH ×2 (09:56→21:28)
--- NOTE | 2019-08-08 10:31 | P.PN ---
Progress Note - Text Interval history: The patient is found in his room he prefers to speak there rather than the office. He indicates he is doing all right but describes having nightmares last night. He does not discuss the content. He indicates he got up to eat breakfast this morning he has not been attending groups. Staff report no behavioral disturbances from him this morning or last night. His medications were reviewed he has no questions or concerns at this time. He indicates he is looking forward to being discharged to [facility] for inpatient chemical dependency treatment. Mental status exam: The patient's lying in bed he makes little eye contact he's not particularly engaged in the interview. He reports no suicidal or homicidal thoughts she is reporting no auditory or visual hallucinations. He is endorsing no specific delusions as we reviewed several types. He demonstrates no verbal or physical aggressiveness he speaks calmly. He appears tired but is not lethargic. He demonstrates no repetitive involuntary movements. He is oriented to person place and date. Affect is bland. Speech was fluent nonpressured spontaneous at times for the most part he provides answers to questions. Insight and judgment limited. Plan: The patient is likely underreporting symptoms however there have been no behavioral disturbances last night or this morning. It appears he is compliant with medication. We will monitor him for safety and encourage participation in the milieu. Vital signs reviewed. He requires continued psychiatric hospitalization for further stabilization.
[2019-08-08] MEDS: NICOTINE POLACRILEX 2 MG GUM BUCCAL PRN (13:06)
[2019-08-08] MEDS: OLANZapine ODT 5 MG TAB PO SCH (21:28)
[2019-08-09 07:22] VITALS: RESP 16
[2019-08-09] MEDS: MUPIROCIN 2% OINT 22 GM TUBE TOPICAL SCH ×2 (09:25→21:15)
[2019-08-09] MEDS: hydrOXYzine PAMOATE 25 MG CAP PO SCH ×2 (09:25→21:15)
[2019-08-09] MEDS: LITHIUM CARBONATE 150 MG CAP PO SCH ×2 (09:25→21:14)
[2019-08-09] MEDS: PANTOPRAZOLE 40 MG TABLET PO SCH (09:25)
[2019-08-09] MEDS: NICOTINE POLACRILEX 2 MG GUM BUCCAL PRN (10:55)
--- NOTE | 2019-08-09 11:34 | P.PN ---
Progress Note - Text Interval history: The patient is found in his room he follows me to an interview room. He describes feeling frustrated that he still here in the hospital. He is hoping to be transferred to [facility] soon. He states that the Zyprexa seems to have him overly sedated despite it being such a small dose. He has been compliant with the Zyprexa and the lithium. He has no other questions or concerns related to the medications. There was no report of any behavioral disturbance in the last 24 hours. The patient is eating meals but seems to be isolating in his room otherwise. Mental status exam: The patient is alert he is dressed in several layers of his own clothing. Eye contact is intermittent. He reports his mood is frustrated. He denies having any suicidal or homicidal ideation intent or plan. He states he hasn't had any auditory or visual hallucinations for "a minute". He reports no specific delusions at this time he indicates he feels safe. He demonstrates no tangential thinking loose associations or flight of ideas. He does not appear hypomanic or manic. Insight and judgment limited. He demonstrates no involuntary repetitive movements he demonstrates no verbal or physical aggressiveness during our session. He was directable but not particular he motivated to participate in the discussion today. Plan: The patient will continue on his current psychotropic medications. We will monitor for sedation. He is encouraged to participate in the milieu. Vital signs reviewed. He requires continued psychiatric hospitalization.
[2019-08-09] MEDS: OLANZapine ODT 5 MG TAB PO SCH (21:15)
[2019-08-10] MEDS: hydrOXYzine PAMOATE 25 MG CAP PO SCH ×2 (09:11→21:39)
[2019-08-10] MEDS: LITHIUM CARBONATE 150 MG CAP PO SCH ×2 (09:11→21:39)
[2019-08-10] MEDS: MUPIROCIN 2% OINT 22 GM TUBE TOPICAL SCH ×2 (09:11→22:15)
[2019-08-10] MEDS: PANTOPRAZOLE 40 MG TABLET PO SCH (09:11)
--- NOTE | 2019-08-10 12:37 | P.PN ---
Progress Note - Text Progress Note Date: 08/10/19 Interval History: Patient was seen laying down in his bed this afternoon with the lights off how ever was agreeable and directable to speak to read in the office. Patient continues to appear to be somewhat irritable and was moving his leg repeatedly during interview and states that "you're making me anxious that's why I am moving so much". He states that he feels that he is overmedicated and has been "sleeping all day and night". He claims that he wants to continue to smoke marijuana however wants to stay away from the other drugs when he leaves the hospital. He is continuing to be agreeable to go to rehab upon discharge. He states that he has been eating and has fair appetite at this time however has poor energy due to the medications. He appears to sometimes be inappropriate and bizarre during the interview and spoke about God and spirits. Patient appeared to be less labile today and his affect and was more organized in his thought content and process. Patient denied any suicidal or homicidal ideations intent or plan and denied any auditory or visual hallucinations. He states that he is taking his medications and denies any side effects at this time. Mental Status Exam: General Appearance: Patient appears to be older than stated age is alert, more directable today. Patient has improving hygiene and fair eye contact. Appears to be somewhat lethargic. Behavior: Patient is calmer today and directable. Appears to be shaking his leg during the interview. Speech: Patient's speech is fluent and nonpressured. Mood/Affect: Mood is "ok" and anxiety is mildly improved, affect is incongruent and less labile Suicidality/Homicidality: Patient denies having any suicidal or homicidal ideation intent or plan. Perceptions: Patient denies any auditory or visual hallucinations. Though content/process: There is no evidence of any delusional thought content and thought process is linear and goal-directed. focused on discharge and marijuana. Memory and concentration: AOX3, grossly intact for the purposes of this session Judgment and insight: Impulsive/poor, mildly improving. Assessment: Schizoaffective, bipolar type Methamphetamine abuse Cannabis abuse Opioid abuse Nicotine dependence Plan: -Patient continues to meet criteria for inpatient psychiatric admission for symptom stabilization and safety. Patient has signed adult voluntary form and medication consent and was placed in patient's chart. -Medications: Continue with lithium 450 mg twice a day for mood stabilization. [place] level drawn on 08/07 - 0.6. Continue with scheduled Vistaril 25 mg twice a day for anxiety. Decreased Zyprexa 2.5 mg daily at bedtime for mood stabilization/psychosis/insomnia. We'll consider adding on either propranolol or Lamictal tomorrow if patient continues to be restless/anxious and irritable. -As per nursing report and [facility] report, patient receives weekly Prolixin D 50 mg last on 07/28/2019. Patient received his Prolixin D 50 mg long acting injection on 08/04/2019 and tolerated it well. Will be due for his next dose tomorrow. -When necessary Megan for agitation/aggression. -NRT -Nicorette gum - on board for discharge planning. Patient's guardian would like patient to go directly to [facility] for inpatient substance rehab upon discharge.
[2019-08-10] MEDS: NICOTINE POLACRILEX 2 MG GUM BUCCAL PRN ×2 (13:00→21:42)
[2019-08-10] MEDS ORDERED: OLANZapine ODT 5 MG TAB PO SCH (21:00)
[2019-08-11] MEDS: hydrOXYzine PAMOATE 25 MG CAP PO SCH ×2 (09:54→20:18)
[2019-08-11] MEDS: MUPIROCIN 2% OINT 22 GM TUBE TOPICAL SCH ×2 (09:55→20:21)
[2019-08-11] MEDS: PANTOPRAZOLE 40 MG TABLET PO SCH (09:55)
[2019-08-11] MEDS: LITHIUM CARBONATE 150 MG CAP PO SCH ×2 (09:55→20:18)
[2019-08-11] MEDS: NICOTINE POLACRILEX 2 MG GUM BUCCAL PRN ×3 (14:28→23:17)
[2019-08-11] MEDS ORDERED: fluPHENAZine DECANOATE 25 MG/ML 5ML MDV IM ONE (14:45)
--- NOTE | 2019-08-11 14:52 | P.PN ---
Progress Note - Text Progress Note Date: 08/11/19 Interval History: Patient was seen in the hallways after he was done talking on the phone and was agreeable and directable to speak to read in the office. Patient appeared to be more directable today and less irritable however continues to speak in a loud tone with intense eye contact. He claims that he is feeling anxious and also states that he is dizzy and sedated on Zyprexa. Patient was requesting to have the medication discontinued and states that "I don't feel right". Patient claims that his mood has been improving however and is agreeable to start another mood stabilizer. He states that he continues to feel sedated and "I feel like I've been in bed all day". Patient continues to state that he feels anxious because he is not smoking marijuana and explained different health benefits of marijuana to engineering technical writer. Patient also agreed to have his Prolixin D injection today. He is continuing to be agreeable to go to rehab upon discharge. He states that he has been eating and has fair appetite at this time however has poor energy due to the medications. Patient was less bizarre and inappropriate during conversation. Patient is more organized in his thought content and process. Patient denied any suicidal or homicidal ideations intent or plan and denied any auditory or visual hallucinations. He states that he is taking his medications and denies any side effects at this time. Mental Status Exam: General Appearance: Patient appears to be older than stated age is alert, more directable today. Patient has improving hygiene and fair eye contact Behavior: Patient is calmer today and directable. Appears to be shaking his leg during the interview and has mild tremor bilaterally in his hands. Speech: Patient's speech is fluent and nonpressured. Mood/Affect: Mood is "anxious" , affect is incongruent and less labile Suicidality/Homicidality: Patient denies having any suicidal or homicidal ideation intent or plan. Perceptions: Patient denies any auditory or visual hallucinations. Though content/process: There is no evidence of any delusional thought content and thought process is linear and goal-directed. focused on discharge and marijuana. Memory and concentration: AOX3, grossly intact for the purposes of this session Judgment and insight: Impulsive/poor, mildly improving. Assessment: Schizoaffective, bipolar type Methamphetamine abuse Cannabis abuse Opioid abuse Nicotine dependence Plan: -Patient continues to meet criteria for inpatient psychiatric admission for symptom stabilization and safety. Patient has signed adult voluntary form and medication consent and was placed in patient's chart. -Medications: Continue with lithium 450 mg twice a day for mood stabilization. [place] level drawn on 08/07 - 0.6. Continue with scheduled Vistaril 25 mg twice a day for anxiety. Discontinued Zyprexa and will start Lamictal 25 mg twice a day for mood stabilization/depression. -As per nursing report and [facility] report, patient receives weekly Prolixin D 50 mg last on 07/28/2019. Patient received his Prolixin D 50 mg long acting injection on 08/04/2019 and tolerated it well. Will be due for his next dose today. -When necessary Megan for agitation/aggression. -NRT -Nicorette gum -GERTRUDE on board for discharge planning. Patient's guardian would like patient to go directly to [facility] for inpatient substance rehab upon discharge. Likely discharge in 2-3 days.
[2019-08-11] MEDS: lamoTRIgine 25 MG TAB PO SCH ×2 (15:43→20:21)
[2019-08-12] MEDS: NICOTINE POLACRILEX 2 MG GUM BUCCAL PRN ×6 (02:13→20:56)
[2019-08-12 07:29] VITALS: TEMP 97.9
[2019-08-12] MEDS: PANTOPRAZOLE 40 MG TABLET PO SCH (08:50)
[2019-08-12] MEDS: hydrOXYzine PAMOATE 25 MG CAP PO SCH ×2 (08:50→20:48)
[2019-08-12] MEDS: lamoTRIgine 25 MG TAB PO SCH (08:51)
[2019-08-12] MEDS: LITHIUM CARBONATE 150 MG CAP PO SCH ×2 (08:51→20:46)
[2019-08-12] MEDS: MUPIROCIN 2% OINT 22 GM TUBE TOPICAL SCH ×2 (08:51→21:41)
--- NOTE | 2019-08-12 12:21 | P.PN ---
Progress Note - Text Progress Note Date: 08/12/19 Interval History: Patient was seen in the common room playing cards with other patients and was agreeable and directable to speak to expert medical writer in the office. Patient appeared to be more directable today and less irritable. Patient claims that he feels "calmer today" and claims that medications are really helping with his anxiety and "my thoughts". Patient was thankful to expert medical writer for starting the medications for him. He claims that he tolerated the Prolixin D shot yesterday well. He also spoke about having goals for when he leaves the hospital and spoke of wanting to continue to go to rehab and to stay clean off of drugs. Patient also states that he would like to do gardening and other lawn care in the springtime and wants to buy a truck and supplies off of one of his family members. Patient claims that he's been getting along with other people on the unit and has been going to groups. He feels less sedated today. He claims that he had some difficulties with sleep last night however was able to sleep for most of the night. Patient continues to state that he feels anxious because he is not smoking marijuana. He continues to claim that he will "always smoke my marijuana" and states that it is not affecting him. He states that he has been eating and has fair appetite at this time and has improved energy. Patient is less bizarre and appropriate during conversation. Patient is more organized in his thought content and process. Patient denied any suicidal or homicidal ideations intent or plan and denied any auditory or visual hallucinations. He states that he is taking his medications and denies any side effects at this time. Mental Status Exam: General Appearance: Patient appears to be older than stated age is alert, more cooperative today. Patient has improving hygiene and fair eye contact Behavior: Patient is calmer today and directable. Appears to be shaking his leg during the interview less today with continued mild tremor bilaterally in his hands. Speech: Patient's speech is fluent and nonpressured. Mood/Affect: Mood is "better", affect is congruent and less labile Suicidality/Homicidality: Patient denies having any suicidal or homicidal ideation intent or plan. Perceptions: Patient denies any auditory or visual hallucinations. Though content/process: There is no evidence of any delusional thought content and thought process is linear and goal-directed. More future oriented. Memory and concentration: AOX3, grossly intact for the purposes of this session Judgment and insight: poor, mildly improving. Assessment: Schizoaffective, bipolar type Methamphetamine abuse Cannabis abuse Opioid abuse Nicotine dependence Plan: -Patient continues to meet criteria for inpatient psychiatric admission for symptom stabilization and safety. Patient has signed adult voluntary form and medication consent and was placed in patient's chart. -Medications: Continue with lithium 450 mg twice a day for mood stabilization. [place] level drawn on 08/07 - 0.6. Continue with scheduled Vistaril 25 mg twice a day for anxiety. Increased Lamictal 25 mg every morning +50 mg daily at bedtime for mood stabilization/depression. -As per nursing report and [facility] report, patient receives weekly Prolixin D 50 mg last on 07/28/2019. Patient received his Prolixin D 50 mg long acting injection on 08/04/2019 and also on 08/11/2019 while on the unit and tolerated it well. Will be due for his next dose on 08/18/2019 -When necessary Megan for agitation/aggression. -NRT -Nicorette gum - on board for discharge planning. Patient's guardian would like patient to go directly to [facility] for inpatient substance rehab upon discharge. steam table worker to make arrangements with [facility] and patient can likely be discharged tomorrow or the day once bed is available.
[2019-08-12] MEDS ORDERED: lamoTRIgine 25 MG TAB PO SCH (21:00)
[2019-08-13] MEDS: NICOTINE POLACRILEX 2 MG GUM BUCCAL PRN ×2 (05:09→08:30)
[2019-08-13] MEDS: MUPIROCIN 2% OINT 22 GM TUBE TOPICAL SCH (05:09)
[2019-08-13 06:55] VITALS: BP 124/80; PULSE 92
[2019-08-13] MEDS: LITHIUM CARBONATE 150 MG CAP PO SCH (08:28)
[2019-08-13] MEDS: PANTOPRAZOLE 40 MG TABLET PO SCH (08:28)
[2019-08-13] MEDS: hydrOXYzine PAMOATE 25 MG CAP PO SCH (08:28)
[2019-08-13] MEDS ORDERED: lamoTRIgine 25 MG TAB PO SCH (09:00)
--- NOTE | 2019-08-13 10:01 | P.DS ---
Providers Date of admission: 07/31/19 04:05 Expected date of discharge: 08/13/19 Attending physician: Lion Hughes MD Consults: 07/31/19 04:07 Consult Physician Routine Consulting Provider: Leonela Physician Consult Reason/Comments: Medical H and P Do you want consulting provider notified?: Yes, Notify in am Primary care physician: [facility] - Discharge Diagnosis(es) (1) Schizoaffective disorder, bipolar type Current Visit: Yes Status: Acute Priority: High (2) Methamphetamine abuse Current Visit: Yes Status: Acute Priority: Medium (3) Cannabis abuse Current Visit: Yes Status: Acute Priority: Medium (4) Opioid abuse Current Visit: Yes Status: Acute Priority: Medium (5) Nicotine dependence Current Visit: Yes Status: Acute Priority: Low Hospital Course: Admission HPI: Patient is a 43-year-old male with a history of polysubstance abuse and psychosis. Patient presented to the hospital yesterday with complaints of suicidal ideations with a plan to have himself shot by police and stabbed himself according to ER report. Patient also admitted to having used methamphetamine earlier that day. Patient was admitted to the [facility] on petition and certification. Patient was seen by underwriter solicitation director this morning and patient appeared to be irritable and hostile and did not want to leave his room. Patient had his sheets covering his face and his entire body during the interview and refused to remove it. Patient was also restless during the interview and moving his legs trying to get comfortable. Patient was loud at times and demanding to underwriter solicitation director and telling him to leave long-term during the interview. Patient told the underwriter solicitation director to "tell your friends to leave me alone" and spoke about other paranoid delusions as patient spoke about "why are they coming after me from the [place], I didn't do anything to them?!". Patient was bizarre and disorganized in his thoughts and appeared to be actively responding to internal stimuli. When patient was asked about his medications patient became upset and stated "I don't know what I'm on talk to ". Patient did admit having a long-acting injection given to him recently. He admitted to polysubstance use including methamphetamine use yesterday. He states that he is agitated and has poor sleep at this time however is currently denying suicidal ideations. Patient denies any homicidal ideations intent or plan. At this time patient denies any auditory or visual hallucinations. Patient does have flight of ideas and racing thoughts. Patient admits to using and methamphetamine and marijuana however does not give quantity. He also admits to using cigarettes daily. Hospital course: Upon admission to the unit patient was initially hostile/irritable psychotic and endorsing paranoia. Patient was however somewhat directable and agreeable to commence treatment. Patient was also going through withdrawal of poly-substance use and therefore required PRN medications for agitation and aggression. Patient eventually improved and got along well with other patients on the unit and followed unit protocol. Patient was compliant with the medications and denied any side effects throughout hospital course. Patient was started on lithium which was titrated up to 450 mg twice a day for mood stabilization. [place] level drawn on 08/07/2019 was 0.6. Patient was also placed on scheduled Vistaril 25 mg twice a day for anxiety. Patient was placed on Lamictal and titrated up to 50 mg twice a day for mood stabilization/depression. Patient was receiving Prolixin D weekly 50 mg from [facility] as an outpatient and received 2 doses while on the unit on 08/04/2019 and also on 08/11/2019 and tolerated it well. Patient will be due for his next Prolixin D injection dose on 08/18/2019. Patient spoke of his stressors and engaged in therapy both group and individual. Patient was also seen by medical team for history and physical exam. Throughout the course of the hospitalization patient gradually improved with regards to mood, anxiety, sleep and became future oriented with improved insight and judgment. On the day of discharge patient denied any suicidal or homicidal ideations intent or plan denied any auditory or visual hallucinations. Patient endorsed wanting to live for his future and also to see his children eventually. The patient denied any access to guns or weapons. Patient denied any paranoia and did not endorse any delusions. Patient does have a significant history of substance abuse and was counseled on abstaining from all substances including alcohol and marijuana. Patient is currently under substance use treatment order which was recently renewed and patient was agreeable to go to rehab immediately upon discharge at [facility] as requested by patient's guardian. Patient was also counseled on the medications and need for regular compliance and was encou raged to follow-up with their outpatient appointment for mental health and also for primary care. Mental status exam: General Appearance: Patient appears to be older than stated age is alert, and co operative. Patient is in no acute distress and has improved hygiene and grooming Behavior: Patient is calmly seated without any agitated behavior. Some restlessness in patient's left leg which appears to be chronic. Speech: Patient's speech is fluent and nonpressured. Mood/Affect: Patient reports their mood is "good", affect is congruent and euthymic. Suicidality/Homicidality: Patient denies having any suicidal or homicidal ideation intent or plan. Perceptions: Patient denies any auditory or visual hallucinations. Though content/process: There is no evidence of any delusional thought content and thought process is linear and goal-directed. Future oriented. Memory and concentration: AOX3, grossly intact for the purposes of this session. Can spell "WORLD" backwards correctly. Judgment and insight: improved Impression: Schizoaffective disorder, bipolar type Methamphetamine abuse Cannabis abuse Opiate abuse Nicotine dependence Plan: -Continue with discharge today as patient has improved and stabilized psychiatrically and is not currently an imminent threat to himself and/or others. -Continue medications: Patient to continue on lithium 450 mg twice a day for mood stabilization, Vistaril 25 mg twice a day for anxiety, Lamictal will be switched to 100 mg daily at bedtime for mood stabilization/depression. Continue with Prolixin D weekly 50 mg. While on the unit on 08/04/2019 and also on 08/11/2019 and tolerated it well. Patient will be due for his next Prolixin-D injection dose on 08/18/2019. -Patient was counseled on the need for medication compliance and appropriate follow-up at mental health and also primary care for medical issues. Patient verbalized understanding and agreed. -Social work to help arrange for transfer of patient to [facility] substance use rehab as requested per guardian. Social work also to arrange for patients follow up appointments with [facility] for psychiatric care along with follow up with primary care provider. -Patient counseled on abstaining from recreational drugs and marijuana and alcohol. Was informed/educated on the adverse effects on their physical and mental health. Patient verbally agreed and understood. Patient is agreeable to go to [facility] inpatient substance use rehab program as requested per guardian. -Patient was instructed to return to the hospital or seek immediate medical care if their psychiatric or medical symptoms do worsen or reoccur. Allergies Allergy/AdvReac Type Severity Reaction Status Date / Time cat dander Allergy Itching Verified 07/31/19 11:17 Laboratory Results WBC 10.1 k/uL (3.8-10.6) 07/31/19 02:24 RBC 4.76 m/uL (4.30-5.90) 07/31/19 02:24 Hgb 14.6 gm/dL (13.0-17.5) 07/31/19 02:24 Hct 42.4 % (39.0-53.0) 07/31/19 02:24 MCV 89.2 fL (80.0-100.0) 07/31/19 02:24 MCH 30.7 pg (25.0-35.0) 07/31/19 02:24 MCHC 34.4 g/dL (31.0-37.0) 07/31/19 02:24 RDW 13.3 % (11.5-15.5) 07/31/19 02:24 Plt Count 295 k/uL (150-450) 07/31/19 02:24 Neutrophils % 71 % 07/31/19 02:24 Lymphocytes % 17 % 07/31/19 02:24 Monocytes % 6 % 07/31/19 02:24 Eosinophils % 4 % 07/31/19 02:24 Basophils % 1 % 07/31/19 02:24 Neutrophils # 7.2 k/uL (1.3-7.7) 07/31/19 02:24 Lymphocytes # 1.7 k/uL (1.0-4.8) 07/31/19 02:24 Monocytes # 0.6 k/uL (0-1.0) 07/31/19 02:24 Eosinophils # 0.4 k/uL (0-0.7) 07/31/19 02:24 Basophils # 0.1 k/uL (0-0.2) 07/31/19 02:24 Sodium 139 mmol/L (137-145) 07/31/19 02:24 Potassium 3.6 mmol/L (3.5-5.1) 07/31/19 02:24 Chloride 102 mmol/L (98-107) 07/31/19 02:24 Carbon Dioxide 26 mmol/L (22-30) 07/31/19 02:24 Anion Gap 11 mmol/L 07/31/19 02:24 BUN 16 mg/dL (9-20) 07/31/19 02:24 Creatinine 1.13 mg/dL (0.66-1.25) 07/31/19 02:24 Est GFR (CKD-EPI)AfAm >90 (>60 ml/min/1.73 sqM) 07/31/19 02:24 Est GFR (CKD-EPI)NonAf 79 (>60 ml/min/1.73 sqM) 07/31/19 02:24 Glucose 137 mg/dL (74-99) H 07/31/19 02:[address] Glu mg/dL 120 08/01/19 07:40 Hemoglobin A1c 5.8 % (4.0-6.0) 08/01/19 07:40 Calcium 9.3 mg/dL (8.4-10.2) 07/31/19 02:24 Total Bilirubin 0.7 mg/dL (0.2-1.3) 08/01/19 07:40 Conjugated Bilirubin 0.0 mg/dL (0.0-0.3) 08/01/19 07:40 Unconjugated Bilirubin 0.5 mg/dL (0.0-1.1) 08/01/19 07:40 Delta Bilirubin 0.2 mg/dL (0.0-0.2) 08/01/19 07:40 AST 17 U/L (17-59) 08/01/19 07:40 ALT 18 U/L (21-72) L 08/01/19 07:40 Alkaline Phosphatase 63 U/L (38-126) 08/01/19 07:40 Total Protein 7.4 g/dL (6.3-8.2) 08/01/19 07:40 Albumin 4.3 g/dL (3.5-5.0) 08/01/19 07:40 Triglycerides 146 mg/dL (<150) 08/01/19 07:40 Cholesterol 189 mg/dL (<200) 08/01/19 07:40 LDL Cholesterol, Calc 116 mg/dL (0-99) H 08/01/19 07:40 HDL Cholesterol 44 mg/dL (40-60) 08/01/19 07:40 TSH 0.327 mIU/L (0.465-4.680) L 08/01/19 07:40 Urine Color Yellow 07/31/19 02:50 Urine Appearance Cloudy (Clear) 07/31/19 02:50 Urine pH 7.0 (5.0-8.0) 07/31/19 02:50 Ur Specific [place] 1.018 (1.001-1.035) 07/31/19 02:50 Urine Protein Negative (Negative) 07/31/19 02:50 Urine Glucose (UA) Negative (Negative) 07/31/19 02:50 Urine Ketones Negative (Negative) 07/31/19 02:50 Urine Blood Negative (Negative) 07/31/19 02:50 Urine Nitrite Negative (Negative) 07/31/19 02:50 Urine Bilirubin Negative (Negative) 07/31/19 02:50 Urine Urobilinogen <2.0 mg/dL (<2.0) 07/31/19 02:50 Ur Leukocyte Esterase Negative (Negative) 07/31/19 02:50 Urine RBC 1 /hpf (0-5) 07/31/19 02:50 Urine WBC 1 /hpf (0-5) 07/31/19 02:50 Amorphous Sediment Rare /hpf (None) H 07/31/19 02:50 Hyaline Casts 2 /lpf (0-2) 07/31/19 02:50 Urine Mucus Rare /hpf (None) H 07/31/19 02:50 Urine Opiates Screen Not Detected (NotDetected) 07/31/19 02:50 Ur Oxycodone Screen Not Detected (NotDetected) 07/31/19 02:50 Urine Methadone Screen Not Detected (NotDetected) 07/31/19 02:50 Ur Propoxyphene Screen Not Detected (NotDetected) 07/31/19 02:50 Ur Barbiturates Screen Not Detected (NotDetected) 07/31/19 02:50 U Tricyclic Antidepress Not Detected (NotDetected) 07/31/19 02:50 Ur Phencyclidine Scrn Not Detected (NotDetected) 07/31/19 02:50 Ur Amphetamines Screen Detected (NotDetected) H 07/31/19 02:50 U Methamphetamines Scrn Detected (NotDetected) H 07/31/19 02:50 U Benzodiazepines Scrn Not Detected (NotDetected) 07/31/19 02:50 [place] 0.6 mmol/L 08/07/19 08:26 Urine Cocaine Screen Not Detected (NotDetected) 07/31/19 02:50 U Marijuana (THC) Screen Detected (NotDetected) H 07/31/19 02:50 Hepatitis A IgM Ab NEGATIVE 07/31/19 02:40 Hep Bs Antigen Non-Reactive (Non-Reactive) 07/31/19 02:24 Hep B Core IgM Ab Non-Reactive (Non-Reactive) 07/31/19 02:24 Hep C IgG Ab Non-Reactive (Non-Reactive) 07/31/19 02:24 HIV-1 Antibody Non-Reactive (Non-Reactive) 07/31/19 02:24 HIV Ag/Ab Interpret 07/31/19 02:24 HIV p24 Antibody Non-Reactive (Non-Reactive) 07/31/19 02:24 HIV-2 Antibody Non-Reactive (Non-Reactive) 07/31/19 02:24 HIV P24 Antigen Non-Reactive (Non-Reactive) 07/31/19 02:24 Vital Signs Temp 97.9 F 08/13/19 06:53 Pulse 92 08/13/19 06:53 Resp 16 08/13/19 06:53 BP 124/80 08/13/19 06:53 Pulse Ox 98 08/10/19 18:24 Patient Condition at Discharge: Stable Plan - Discharge Summary Discharge Rx Participant: No New Discharge Prescriptions: New Mupirocin 2% Oint [Bactroban 2% Oint] 1 applic TOPICAL BID #1 applic lamoTRIgine [LaMICtal] 100 mg PO HS #28 tab [place] Carbonate 450 mg PO BID 28 Days cap Nicotine Polacrilex [Nicorette] 2 mg BUCCAL Q3HR PRN 28 Days gum PRN Reason: Nicotine Cravings Pantoprazole [Protonix] 40 mg PO AC-BRKFST 28 Days tablet. hydrOXYzine PAMOATE [Vistaril] 25 mg PO BID 28 Days cap Changed fluPHENAZine DECANOATE [Prolixin Decanoate] 50 mg IM ONCE #1 ml Discontinued diphenhydrAMINE [Benadryl] 50 mg PO HS #28 cap Omeprazole 40 mg PO DAILY Discharge Medication List [place] Carbonate 450 mg PO BID 28 Days cap 08/13/19 [Rx] Mupirocin 2% Oint [Bactroban 2% Oint] 1 applic TOPICAL BID #1 applic 08/13/19 [Rx] Nicotine Polacrilex [Nicorette] 2 mg BUCCAL Q3HR PRN 28 Days gum 08/13/19 [Rx] Pantoprazole [Protonix] 40 mg PO AC-BRKFST 28 Days tablet. 08/13/19 [Rx] fluPHENAZine DECANOATE [Prolixin Decanoate] 50 mg IM ONCE #1 ml 08/13/19 [Rx] hydrOXYzine PAMOATE [Vistaril] 25 mg PO BID 28 Days cap 08/13/19 [Rx] lamoTRIgine [LaMICtal] 100 mg PO HS #28 tab 08/13/19 [Rx] Follow up Appointment(s)/Referral(s): [facility] [Primary Care Provider] - 1-2 days Patient Instructions/Handouts: Depression (DC), Suicide Prevention (DC) Activity/Diet/Wound Care/Special Instructions: Activity and diet as tolerated. Avoid the use of street drugs and alcohol. Take all medications as prescribed. When you are in need of refills on your medications please contact your medical provider and/or outpatient psychiatrist to have this done. Please go to scheduled outpatient appointment for aftercare treatment. If symptoms return or become worse, call the crisis line at and/or go to the nearest emergency room for evaluation. Discharge Disposition: HOME SELF-CARE
== END 2019-08-13 13:05 | disposition home or self-care (01) | DRG 885 ==
LOC: EC 01:08 → 3MHU 04:05
PROVIDERS: ADMIT Psychiatry & Neurology Psychiatry; ATTEND Psychiatry & Neurology Psychiatry
DX: F25.0 Schizoaffective disorder, bipolar type (principal); R45.851 Suicidal ideations; F11.10 Opioid abuse, uncomplicated; F12.10 Cannabis abuse, uncomplicated; F15.10 Other stimulant abuse, uncomplicated; F17.210 Nicotine dependence, cigarettes, uncomplicated; F41.9 Anxiety disorder, unspecified; G40.909 Epilepsy, unspecified, not intractable, without status epilepticus; M41.9 Scoliosis, unspecified; J44.9 Chronic obstructive pulmonary disease, unspecified; K21.9 Gastro-esophageal reflux disease without esophagitis; K44.9 Diaphragmatic hernia without obstruction or gangrene; R73.03 Prediabetes; B00.9 Herpesviral infection, unspecified; Z81.8 Family history of other mental and behavioral disorders; Z79.899 Other long term (current) drug therapy; G43.909 Migraine, unspecified, not intractable, without status migrainosus; F14.10 Cocaine abuse, uncomplicated
CPT/HCPCS: 36415; 80053; 80061; 80074; 80076; 80178; 80306; 81001; 82075; 83036; 84443; 85025; 87390; 93005; 96372; 96374; 99285

== ENCOUNTER 2019-08-25 00:27 | Emergency (ER) | payer MEDICARE, OTHER ==
[2019-08-25 00:35] VITALS: RESP 18; TEMP 97.8
--- NOTE | 2019-08-25 01:17 | ED ---
Psych HPI - General Chief Complaint: Psychiatric Symptoms Stated Complaint: Mental Health Time Seen by Provider: 08/25/19 00:39 Source: patient Mode of arrival: ambulatory - History of Present Illness MD Complaint: feels depressed -: month(s) Associated Psychiatric Symptoms: depression, suicidal ideation History of same: Yes Quality: constant Improves With: none Worsens With: none Associated Symptoms: denies other symptoms - Related Data Previous Rx's Medication Instructions Recorded Dyer Carbonate 450 mg PO BID 28 Days cap 08/13/19 Mupirocin 2% Oint [Bactroban 2% 1 applic TOPICAL BID #1 applic 08/13/19 Oint] Nicotine Polacrilex [Nicorette] 2 mg BUCCAL Q3HR PRN 28 Days gum 08/13/19 Pantoprazole [Protonix] 40 mg PO AC-BRKFST 28 Days 08/13/19 tablet. fluPHENAZine DECANOATE [Prolixin 50 mg IM ONCE #1 ml 08/13/19 Decanoate] hydrOXYzine PAMOATE [Vistaril] 25 mg PO BID 28 Days cap 08/13/19 lamoTRIgine [LaMICtal] 100 mg PO HS #28 tab 08/13/19 Allergies Allergy/AdvReac Type Severity Reaction Status Date / Time cat dander Allergy Itching Verified 08/25/19 00:34 Review of Systems ROS Statement: Those systems with pertinent positive or pertinent negative responses have been documented in the HPI. ROS Other: All systems not noted in ROS Statement are negative. Constitutional: Denies: fever Respiratory: Denies: cough, dyspnea Cardiovascular: Denies: chest pain, palpitations Gastrointestinal: Denies: abdominal pain, vomiting, diarrhea Genitourinary: Denies: dysuria, hematuria Musculoskeletal: Denies: back pain Skin: Denies: rash Neurological: Denies: headache Past Medical History Past Medical History: GERD/Reflux, Musculoskeletal Disorder, Seizure Disorder Additional Past Medical History / Comment(s): scoliosis, herpes, hiatal hernia, migraines History of Any Multi-Drug Resistant Organisms: None Reported Past Surgical History: No Surgical Hx Reported Additional Past Surgical History / Comment(s): EGD about 10 years ago Past Anesthesia/Blood Transfusion Reactions: No Reported Reaction Past Psychological History: Anxiety, Bipolar, Depression, Schizoaffective Disorder Smoking Status: Current every day smoker Past Alcohol Use History: Rare Past Drug Use History: Cocaine, Marijuana, Methamphetamine - Past Family History Mother History Unknown: Yes Additional Family Medical History / Comment(s): from suicide attempt Father History Unknown: Yes Additional Family Medical History / Comment(s): Reports that he is currently in the stages of dying- but wont clarify further. Inititally the patient stated his father was . General Exam Limitations: no limitations General appearance: alert, in no apparent distress Head exam: Present: atraumatic, normocephalic Eye exam: Present: normal appearance. Absent: scleral icterus, conjunctival injection Neck exam: Present: normal inspection, full ROM Respiratory exam: Present: normal lung sounds bilaterally. Absent: respiratory distress, wheezes, rales, rhonchi, stridor Cardiovascular Exam: Present: regular rate, normal rhythm, normal heart sounds. Absent: systolic murmur, diastolic murmur, rubs, gallop GI/Abdominal exam: Present: soft. Absent: distended, tenderness, guarding Neurological exam: Present: alert, normal gait Psychiatric exam: Present: depressed, suicidal ideation. Absent: agitated, anxious, flat affect, manic, homicidal ideation Skin exam: Present: warm, dry, intact, normal color. Absent: rash Course Vital Signs 08/25/19 00:31 Temperature 97.8 F Pulse Rate 120 H Respiratory 18 Rate Blood Pressure 143/82 O2 Sat by Pulse 97 Oximetry Medical Decision Making - Lab Data Lab Results 08/25/19 Range/Units 01:29 Urine Opiates Screen Not Detected (NotDetected) Ur Oxycodone Screen Not Detected (NotDetected) Urine Methadone Screen Not Detected (NotDetected) Ur Propoxyphene Screen Not Detected (NotDetected) Ur Barbiturates Screen Not Detected (NotDetected) U Tricyclic Antidepress Not Detected (NotDetected) Ur Phencyclidine Scrn Not Detected (NotDetected) Ur Amphetamines Screen Not Detected (NotDetected) U Methamphetamines Scrn Not Detected (NotDetected) U Benzodiazepines Scrn Not Detected (NotDetected) Urine Cocaine Screen Not Detected (NotDetected) U Marijuana (THC) Screen Detected H (NotDetected) Disposition Clinical Impression: Mood disorder Disposition: HOME SELF-CARE Condition: Good Instructions (If sedation given, give patient instructions): Mood Disorders (ED) Is patient prescribed a controlled substance at d/c from ED?: No Referrals: [facility] [Primary Care Provider] - 1-2 days
[2019-08-25 01:57] LABS: Amphetamine Screen,Urine Not Detected (NotDetected); Barbiturate Screen,Urine Not Detected (NotDetected); Benzodiazepines Screen,Urine Not Detected (NotDetected); Cocaine Screen,Urine Not Detected (NotDetected); Methadone Screen, Urine Not Detected (NotDetected); Opiate Screen,Urine Not Detected (NotDetected); Oxycodone Screen, Urine Not Detected (NotDetected); Phencyclidine Screen,Urine Not Detected (NotDetected); Tricyclic Antidepressant,Urine Not Detected (NotDetected); Urn Cannabinoid Scrn Detected (NotDetected)
[2019-08-25 02:56] VITALS: BP 136/99; PULSE 96
== END 2019-08-25 03:12 | disposition home or self-care (01) ==
LOC: EEVIPCON 00:27 → EC 00:27
DX: F39 Unspecified mood [affective] disorder (principal); F17.200 Nicotine dependence, unspecified, uncomplicated; Z91.09 Other allergy status, other than to drugs and biological substances
CPT/HCPCS: 80306; 82075; 99285

== ENCOUNTER 2019-10-25 21:06 | Inpatient (IN) | payer MEDICARE, MEDICAID ==
[2019-10-25 22:09] LABS: Appearance,Urine Clear (Clear); Bilirubin,Urine Negative (Negative); Blood,Urine Negative (Negative); Color,Urine Light Yellow; Glucose,Urine (UA) Negative (Negative); Ketones,Urine Negative (Negative); Leukocyte Esterase,Urine Negative (Negative); Nitrite,Urine Negative (Negative); PH, Urine 6.5 (5.0-8.0); Protein,Urine Negative (Negative); Specific Gravity,Urine 1.004 (1.001-1.035); Urobilinogen,Urine <2.0 mg/dL (<2.0)
--- NOTE | 2019-10-25 22:12 | XR ---
EXAMINATION TYPE: XR chest 2V DATE OF EXAM: 10/25/2019 COMPARISON: 02/08/2014 HISTORY: Cough and congestion TECHNIQUE: FINDINGS: Heart is normal. Lungs are clear of infiltrate. There is no pleural effusion. There are no hilar masses. Bony thorax is intact. IMPRESSION: No active cardiopulmonary disease. Normal heart. No change.
[2019-10-25 22:23] LABS: Amphetamine Screen,Urine Not Detected (NotDetected); Barbiturate Screen,Urine Not Detected (NotDetected); Benzodiazepines Screen,Urine Not Detected (NotDetected); Cocaine Screen,Urine Detected (NotDetected); Methadone Screen, Urine Not Detected (NotDetected); Opiate Screen,Urine Not Detected (NotDetected); Oxycodone Screen, Urine Not Detected (NotDetected); Phencyclidine Screen,Urine Not Detected (NotDetected); Tricyclic Antidepressant,Urine Not Detected (NotDetected); Urn Cannabinoid Scrn Detected (NotDetected)
--- NOTE | 2019-10-25 22:52 | ED ---
Psych HPI - General Source: patient Mode of arrival: ambulatory <Erinn Wilcox - Last Filed: 10/25/19 22:50> <Lalita Nick - Last Filed: 10/26/19 22:49> - General Chief Complaint: Psychiatric Symptoms Stated Complaint: Mental Health Time Seen by Provider: 10/25/19 21:30 - History of Present Illness Initial Comments: Patient is a 43-year-old male presenting to emergency Department for psych evaluation. Patient states he is on a lot of psych meds and feels like they are making symptoms worse and he feels like "he is going to start using drugs secondary to this medication." Patient does admit to using drugs a few days ago secondary to a family member passing away. Patient is also complaining of a cough that has been going on for the last few days. He denies fever, chills, nausea, vomiting, shortness of breath. He denies any runny nose or congestion. He denies any homicidal or suicidal thoughts today. He does wish to be evaluated by psych nurse. He has no other complaints at this time. Upon arrival to the ER his vital signs are stable. (Erinn Wilcox) - Related Data Allergies Allergy/AdvReac Type Severity Reaction Status Date / Time cat dander Allergy Itching Verified 10/25/19 21:44 Review of Systems ROS Other: All systems not noted in ROS Statement are negative. <Erinn Wilcox - Last Filed: 10/25/19 22:50> ROS Other: All systems not noted in ROS Statement are negative. <Lalita Nick - Last Filed: 10/26/19 22:49> ROS Statement: Those systems with pertinent positive or pertinent negative responses have been documented in the HPI. Past Medical History Past Medical History: GERD/Reflux, Musculoskeletal Disorder, Seizure Disorder Additional Past Medical History / Comment(s): scoliosis, herpes, hiatal hernia, migraines History of Any Multi-Drug Resistant Organisms: None Reported Past Surgical History: No Surgical Hx Reported Additional Past Surgical History / Comment(s): EGD about 10 years ago Past Anesthesia/Blood Transfusion Reactions: No Reported Reaction Past Psychological History: Anxiety, Bipolar, Depression, Schizoaffective Disorder Smoking Status: Current every day smoker Past Alcohol Use History: Rare Past Drug Use History: Cocaine, Marijuana, Methamphetamine - Past Family History Mother History Unknown: Yes Additional Family Medical History / Comment(s): from suicide attempt Father History Unknown: Yes Additional Family Medical History / Comment(s): Reports that he is currently in the stages of dying- but wont clarify further. Inititally the patient stated his father was . <Erinn Wilcox - Last Filed: 10/25/19 22:50> General Exam Limitations: no limitations <Erinn Wilcox - Last Filed: 10/25/19 22:50> - General Exam Comments Initial Comments: GENERAL: Patient appears anxious and in no acute distress. HEAD: Atraumatic, normocephalic. EYES: Pupils equal round and reactive to light, extraocular movements intact, sclera anicteric, conjunctiva are normal. ENT: TMs normal, nares patent, oropharynx clear without exudates. Moist mucous membranes. NECK: Normal range of motion, supple without lymphadenopathy or JVD. LUNGS: Breath sounds clear to auscultation bilaterally and equal. No wheezes rales or rhonchi. HEART: Regular rate and rhythm without murmurs, rubs or gallops. ABDOMEN: Soft, nontender, normoactive bowel sounds. No guarding, no rebound. No masses appreciated. : Deferred EXTREMITIES: Normal range of motion, no pitting or edema. No clubbing or cyanosis. NEUROLOGICAL: Normal speech, normal gait. PSYCH: Appears anxious. SKIN: Warm, Dry, normal turgor, no rashes or lesions noted. (Erinn Wilcox) Course Vital Signs 10/25/19 10/26/19 21:40 01:41 Temperature 97.6 F 98.5 F Pulse Rate 94 85 Respiratory 20 18 Rate Blood Pressure 141/93 131/83 O2 Sat by Pulse 97 98 Oximetry Medical Decision Making - Lab Data Result diagrams: 10/26/19 08:29 10/26/19 08:25 <Lalita Nick - Last Filed: 10/26/19 22:49> - Medical Decision Making The patient was signed out to me by Jenise Wilcox. He was evaluated by EPS and he did feel that the patient required inpatient hospitalization. The patient was then transported to the floor in stable condition (Lalita Nick) - Lab Data Lab Results 10/25/19 Range/Units 22:00 Urine Color Light Yellow Urine Appearance Clear (Clear) Urine pH 6.5 (5.0-8.0) Ur Specific [place] 1.004 (1.001-1.035) Urine Protein Negative (Negative) Urine Glucose (UA) Negative (Negative) Urine Ketones Negative (Negative) Urine Blood Negative (Negative) Urine Nitrite Negative (Negative) Urine Bilirubin Negative (Negative) Urine Urobilinogen <2.0 (<2.0) mg/dL Ur Leukocyte Esterase Negative (Negative) Urine Opiates Screen Not Detected (NotDetected) Ur Oxycodone Screen Not Detected (NotDetected) Urine Methadone Screen Not Detected (NotDetected) Ur Propoxyphene Screen Not Detected (NotDetected) Ur Barbiturates Screen Not Detected (NotDetected) U Tricyclic Antidepress Not Detected (NotDetected) Ur Phencyclidine Scrn Not Detected (NotDetected) Ur Amphetamines Screen Not Detected (NotDetected) U Methamphetamines Scrn Not Detected (NotDetected) U Benzodiazepines Scrn Not Detected (NotDetected) Urine Cocaine Screen Detected H (NotDetected) U Marijuana (THC) Screen Detected H (NotDetected) Disposition <Erinn Wilcox - Last Filed: 10/25/19 22:50> Is patient prescribed a controlled substance at d/c from ED?: No Decision to Admit Reason: Admit from EC Decision Date: 10/26/19 Decision Time: 01:16 <Lalita Nick - Last Filed: 10/26/19 22:49> Clinical Impression: Depression Disposition: ADMITTED IP TO THIS [facility] Condition: Stable
[2019-10-25] MEDS: MENTHOL (NICE) LOZENGE MUCOUS MEM PRN (23:23)
[2019-10-26] MEDS ORDERED: MAGNESIUM HYDROXIDE 2,400 MG/10 ML CUP PO PRN (01:34)
[2019-10-26] MEDS ORDERED: MAG HYDROX/AL HYDROX/SIMETH 30 ML CUP PO PRN (01:34)
[2019-10-26] MEDS ORDERED: ZIPRASIDONE 20 MG VIAL IM PRN (01:34)
[2019-10-26] MEDS ORDERED: ACETAMINOPHEN TAB 325 MG TAB PO PRN (01:34)
[2019-10-26] MEDS: MENTHOL (NICE) LOZENGE MUCOUS MEM PRN (09:20)
[2019-10-26 09:33] LABS: Basophils # (A) 0.1 k/uL (0-0.2); Basophils % (A) 1 %; Eosinophils # (A) 0.2 k/uL (0-0.7); Eosinophils % (A) 3 %; HCT 42.8 % (39.0-53.0); HGB 13.7 gm/dL (13.0-17.5); Lymphocytes # (A) 1.5 k/uL (1.0-4.8); Lymphocytes % (A) 21 %; MCH 28.7 pg (25.0-35.0); MCHC 32.1 g/dL (31.0-37.0); MCV 89.5 fL (80.0-100.0); Mean Platelet Volume 7.9; Monocytes # (A) 0.4 k/uL (0-1.0); Monocytes % (A) 6 %; Neutrophils # (A) 4.7 k/uL (1.3-7.7); Neutrophils % (A) 66 %; Platelet Count 266 k/uL (150-450); RBC 4.79 m/uL (4.30-5.90); RDW 13.3 % (11.5-15.5); WBC 7.2 k/uL (3.8-10.6)
[2019-10-26 09:45] LABS: ALT 25 U/L (4-49); AST 39 U/L (17-59); African American GFR (CKD) >90 (>60 ml/min/1.73 sqM); Alkaline Phosphatase 70 U/L (38-126); Anion Gap 10 mmol/L; Bilirubin, Delta 0.4 mg/dL (0.0-0.2); Blood Urea Nitrogen 14 mg/dL (9-20); Calcium 9.1 mg/dL (8.4-10.2); Carbon Dioxide 28 mmol/L (22-30); Chloride 101 mmol/L (98-107); Cholesterol 130 mg/dL (<200); Glucose 125 mg/dL (74-99); HDL Cholesterol 35 mg/dL (40-60); LDL Cholesterol,Calculated 79 mg/dL (0-99); Non-African American GFR(CKD) >90 (>60 ml/min/1.73 sqM); Potassium 4.6 mmol/L (3.5-5.1); Sodium 139 mmol/L (137-145); Total Bilirubin 0.4 mg/dL (0.2-1.3); Total Protein 7.1 g/dL (6.3-8.2); Triglycerides 81 mg/dL (<150)
[2019-10-26] MEDS: BENZTROPINE MESYLATE 0.5 MG TAB PO SCH ×2 (12:05→21:38)
--- NOTE | 2019-10-26 12:17 | P.HP ---
Psychiatric H&P - . H&P Date: 10/26/19 History & Physical: IDENTIFYING DATA: The patient is a 43-year-old single male admitted to psychiatry unit voluntarily with the complaint that he wanted to "get my life back together." HISTORY OF PRESENT ILLNESS: I was unable to obtain a coherent history of present illness because of the level of his thought disorganization. On admission, he told the EPS nurse that he wanted to "fight [facility]." He complained that he was "tired of mental control". During our interview he perseverated about wanting to return to work. He complained repeatedly about his [facility] psychiatrist. He alleged that the psychiatrist is responsible for his use of cocaine. He made such statements as "all right wants to do is poke me, poke me. The medications don't anything for me. They just make me want to use drugs. They are making me use cocaine." He bragged that he has not taken his medication "in over 3 weeks". He alleged that he is "only" using cocaine. He denied the use of other drugs including methamphetamine, opioid medications, amphetamines, heroin, etc. His UDS was positive for cocaine and marijuana. PAST PSYCHIATRIC HISTORY: He has a long history of mental illness and multiple psychiatric hospitalizations. According to the utilization review nurse she has been admitted this unit 21 times. He was last discharged from the unit in August 2019 with the diagnoses of schizoaffective disorder bipolar type, methamphetamine abuse, cannabis abuse, opiate abuse and nicotine dependence. His discharge medications included Lamictal 100 mg at bedtime, lithium carbonate 450 mg twice a day and Prolixin decanoate 50 mg weekly. He is enrolled with [facility] where he receives Prolixin decanoate 50 mg weekly. I reviewed the [facility] medication note from 09/14/2019 and spoke with his outpatient psychiatrist Dr. Fernandes. He is currently in the [facility] and treated with Prolixin decanoate 50 mg weekly. His last injection was on 10/15/2019. He was admitted to [facility] on 08/13/2019 (the day of discharge from our inpatient unit) for treatment of psychosis and the use of methamphetamine and cocaine. PAST MEDICAL HISTORY: He has history of seizure disorder, COPD and GERD. He smokes one to 2 packs of cigarettes per day. ALLERGIES: NO KNOWN DRUG ALLERGIES SUBSTANCE USE HISTORY: He was guarded about his history of substance use but admitted to using "amphetamines", cocaine and methamphetamine" in the past". FAMILY PSYCHIATRIC/SUBSTANCE USE HISTORY: He would not talk about his family history LEGAL HISTORY: Denied current legal problems. According to the [facility] court document he has charges for controlled substance use, possession of controlled substance paraphernalia, assaulting a assistant chief of police, selling alcohol, contempt of court (several), OWI, controlled substance use ecstasy and retail fraud. SOCIAL HISTORY: His born and raised in [place]. His parents are . He would not talk about his brothers and sisters. He apparently obtained a GED. He is currently unemployed and receives Social Security disability. He is single and believes that he has one child out of wedlock. He denies history of physical, sexual or emotional abuse. He alleged that he has an apartment but according to Dr. Fernandes he has been in [facility] since he was [facility]. MENTAL STATUS EXAM: He presented as a casually dressed and malodorous 43-year-old male who was pleasant on approach. He made eye contact and appeared to attend to the interview. He was restless and fidgety throughout the interview. He had no prominent physical abnormalities. He had a bright facial expression. He was alert and oriented to person, place and time. He appeared acathectic. His speech was spontaneous, rapid with increased volume. His affect was elevated but not inappropriate or intense. He denied suicidal ideation or wishes. He denied homicidal ideation Denied feelings of hopelessness, helplessness or worthlessness. He ruminated about his experiences at [facility], his opposition to treatment with psychotropic medications and denying that he has a mental illness. He did not express clear ideas reference, paranoid ideation or delusions. His thinking was grossly disorganized, illogical at times and coherent. He denied hallucinations did not appear to be responding to internal stimuli. Global impression of intellect is average. He has no insight or understanding of his mental illness or need for treatment. STRENGTHS: Stable income, stable housing, supportive community services, guardianship WEAKNESSES: Chronic and persistent mental illness, lack of understanding or insight of his mental illness or need to treatment, chronic and recurrent use of substances IMPRESSION: Is a 43-year-old single male has a history of persistent and severe mental illness as well as history of substance use disorders including cocaine, methamphetamine, alcohol, cannabis, opioids and hallucinogens. He presented to the unit voluntarily with the complaint that he needs to "get his life together", The job" and stopped using "psychiatric medications.". He was markedly acathectic during interview. His thinking was grossly disorganized. His UDS was positive for cocaine and cannabinoids on admission. He should be treated inpatient basis with combination of psychopharmacology and multimodal therapy. PRINCIPLE DIAGNOSIS: Schizoaffective disorder bipolar type with acute exacerbation, akathisia, poor compliance with psychiatric treatment, cocaine use disorder severe, cannabis use disorder severe, methamphetamine use disorder severe, other hallucinogenic disorder, severe, tobacco use disorder RECOMMENDATION: Admitted to the psychiatric unit. Safety precautions. lead worker of housekeeping and laundry to complete the initial psychosocial assessment coordinate discharge and aftercare. Consult medicine for initial physical exam and medical history. Cogentin 0.5 mg by mouth twice a day for EPS. Resume Prolixin Decanoate 50 mg weekly. Review case with his outpatient psychiatrist. Encourage participation in therapeutic groups and activities. Evaluate clinical status response to treatment daily basis. Allergies Allergy/AdvReac Type Severity Reaction Status Date / Time cat dander Allergy Itching Verified 10/25/19 21:44 Vital Signs Temp 97.6 F 10/26/19 03:04 Pulse 82 10/26/19 03:04 Resp 18 10/26/19 03:04 BP 131/95 10/26/19 03:04 Pulse Ox 96 10/26/19 03:04 Intake & Output 10/25/19 10/26/19 10/26/19 18:59 06:59 18:59 Weight 65.941 kg Laboratory Last Values WBC 7.2 k/uL (3.8-10.6) 10/26/19 08:29 RBC 4.79 m/uL (4.30-5.90) 10/26/19 08:29 Hgb 13.7 gm/dL (13.0-17.5) 10/26/19 08:29 Hct 42.8 % (39.0-53.0) 10/26/19 08:29 MCV 89.5 fL (80.0-100.0) 10/26/19 08:29 MCH 28.7 pg (25.0-35.0) 10/26/19 08: MCHC 32.1 g/dL (31.0-37.0) 10/26/19 08: RDW 13.3 % (11.5-15.5) 10/26/19 08: Plt Count 266 k/uL (150-450) 10/26/19 08: Neutrophils % 66 % 10/26/19 08: Lymphocytes % 21 % 10/26/19 08: Monocytes % 6 % 10/26/19 08: Eosinophils % 3 % 10/26/19 08: Basophils % 1 % 10/26/19 08: Neutrophils # 4.7 k/uL (1.3-7.7) 10/26/19 08: Lymphocytes # 1.5 k/uL (1.0-4.8) 10/26/19 08: Monocytes # 0.4 k/uL (0-1.0) 10/26/19 08: Eosinophils # 0.2 k/uL (0-0.7) 10/26/19 08: Basophils # 0.1 k/uL (0-0.2) 10/26/19 08:29 Sodium 139 mmol/L (137-145) 10/26/19 08:25 Potassium 4.6 mmol/L (3.5-5.1) 10/26/19 08:25 Chloride 101 mmol/L (98-107) 10/26/19 08:25 Carbon Dioxide 28 mmol/L (22-30) 10/26/19 08:25 Anion Gap 10 mmol/L 10/26/19 08:25 BUN 14 mg/dL (9-20) 10/26/19 08:25 Creatinine 0.91 mg/dL (0.66-1.25) 10/26/19 08:25 Est GFR (CKD-EPI)AfAm >90 (>60 ml/min/1.73 sqM) 10/26/19 08:25 Est GFR (CKD-EPI)NonAf >90 (>60 ml/min/1.73 sqM) 10/26/19 08:25 Glucose 125 mg/dL (74-99) H 10/26/19 08:25 Calcium 9.1 mg/dL (8.4-10.2) 10/26/19 08:25 Total Bilirubin 0.4 mg/dL (0.2-1.3) 10/26/19 08:25 Conjugated Bilirubin 0.0 mg/dL (0.0-0.3) 10/26/19 08:25 Unconjugated Bilirubin 0.0 mg/dL (0.0-1.1) 10/26/19 08:25 Delta Bilirubin 0.4 mg/dL (0.0-0.2) H 10/26/19 08:25 AST 39 U/L (17-59) 10/26/19 08:25 ALT 25 U/L (4-49) 10/26/19 08:25 Alkaline Phosphatase 70 U/L (38-126) 10/26/19 08:25 Total Protein 7.1 g/dL (6.3-8.2) 10/26/19 08:25 Albumin 4.0 g/dL (3.5-5.0) 10/26/19 08:25 Triglycerides 81 mg/dL (<150) 10/26/19 08:25 Cholesterol 130 mg/dL (<200) 10/26/19 08:25 LDL Cholesterol, Calc 79 mg/dL (0-99) 10/26/19 08:25 HDL Cholesterol 35 mg/dL (40-60) L 10/26/19 08:25 Urine Color Light Yellow 10/25/19 22:00 Urine Appearance Clear (Clear) 10/25/19 22:00 Urine pH 6.5 (5.0-8.0) 10/25/19 22:00 Ur Specific [place] 1.004 (1.001-1.035) 10/25/19 22:00 Urine Protein Negative (Negative) 10/25/19 22:00 Urine Glucose (UA) Negative (Negative) 10/25/19 22:00 Urine Ketones Negative (Negative) 10/25/19 22:00 Urine Blood Negative (Negative) 10/25/19 22:00 Urine Nitrite Negative (Negative) 10/25/19 22:00 Urine Bilirubin Negative (Negative) 10/25/19 22:00 Urine Urobilinogen <2.0 mg/dL (<2.0) 10/25/19 22:00 Ur Leukocyte Esterase Negative (Negative) 10/25/19 22:00 Urine Opiates Screen Not Detected (NotDetected) 10/25/19 22:00 Ur Oxycodone Screen Not Detected (NotDetected) 10/25/19 22:00 Urine Methadone Screen Not Detected (NotDetected) 10/25/19 22:00 Ur Propoxyphene Screen Not Detected (NotDetected) 10/25/19 22:00 Ur Barbiturates Screen Not Detected (NotDetected) 10/25/19 22:00 U Tricyclic Antidepress Not Detected (NotDetected) 10/25/19 22:00 Ur Phencyclidine Scrn Not Detected (NotDetected) 10/25/19 22:00 Ur Amphetamines Screen Not Detected (NotDetected) 10/25/19 22:00 U Methamphetamines Scrn Not Detected (NotDetected) 10/25/19 22:00 U Benzodiazepines Scrn Not Detected (NotDetected) 10/25/19 22:00 Urine Cocaine Screen Detected (NotDetected) H 10/25/19 22:00 U Marijuana (THC) Screen Detected (NotDetected) H 10/25/19 22:00 10/26/19 09:49 10/26/19 12:14
--- NOTE | 2019-10-26 13:16 | P.MDCNMH ---
History of Present Illness Chief Complaint: Mental health issues This is a 43-year-old male who has history of schizoaffective disorder being admitted due to worsening of the same. Patient has history of abuse of marijuana mentors recommends and cocaine. He denies any medical problems. He denies any lung problems cardiovascular diseases diabetes thyroid problems or renal problems. She denies any shortness of breath nausea vomiting or chest pain or leg edema orthopnea or PND. Review of Systems Review of system is negative except mentioned in HPI Past Medical History Past Medical History: GERD/Reflux, Musculoskeletal Disorder, Seizure Disorder Additional Past Medical History / Comment(s): scoliosis, herpes, hiatal hernia, migraines History of Any Multi-Drug Resistant Organisms: None Reported Past Surgical History: No Surgical Hx Reported Additional Past Surgical History / Comment(s): EGD about 10 years ago Past Anesthesia/Blood Transfusion Reactions: No Reported Reaction Smoking Status: Current every day smoker - Past Family History Mother History Unknown: Yes Additional Family Medical History / Comment(s): from suicide attempt Father History Unknown: Yes Additional Family Medical History / Comment(s): Reports that he is currently in the stages of dying- but wont clarify further. Inititally the patient stated his father was . Medications and Allergies Allergies Allergy/AdvReac Type Severity Reaction Status Date / Time cat dander Allergy Itching Verified 10/25/19 21:44 Physical Exam Vitals: Vital Signs Temp Pulse Pulse Resp BP BP Pulse Ox 10/26/19 03:04 97.6 F 82 18 131/95 96 10/26/19 01:41 98.5 F 85 18 131/83 98 10/25/19 21:40 97.6 F 94 20 141/93 97 Intake and Output 10/25/19 10/26/19 10/26/19 22:59 06:59 14:59 Other: Weight 68.039 kg 65.941 kg Vital Signs: I have reviewed the vital signs. GENERAL: Well-nourished, Well-developed , no apparent distress, cooperative Eyes: PERRL, extraoculry movements intact, clear conjunctiva Head: : Atraumatic external nose and ears, oropharyngeal mucosa is moist without lesions or exudates Neck: Symmetric, trachea midline, No thyromegaly, no masses or neck vain pulsation, no neck rigidity CVS: +S1/S2, No murmurs or gallops. Peripheral pulses 2+ and equal in all extremities. RESP: Unlabored respiratory effort. Clear to auscultation bilaterally. Abdomen: Bowel sounds present in all 4 quadrants, Soft to palpation, Non tender/Nondistended, No hepatosplenomegaly, no hernias or masses, no CVA tnderness Musculoskeletal: Extremities w/o deformity, No cyanosis or clubbing, no joint swelling Skin: Warm, Dry. No rashes or lesions Neuro: manager immunology II-XII grossly intact, motor strenght 5/5 i upper and lower extremities, no clonus, patellar DTRs 2+ and sympetrical Psych: Awake, Alert, & Oriented (AAO) x3 Appropriate mood and affect Cranial Nerve Examination - Cranial Nerves Cranial Nerve I- Olfactory: Intact Cranial Nerve II- Optic: Intact Cranial Nerve III- Oculomotor: Intact Cranial Nerve IV- Trochlear: Intact Cranial Nerve V- Trigeminal: Intact Cranial Nerve - Abducens: Intact Cranial Nerve VII- Facial: Intact Cranial Nerve VIII- Auditory: Intact Cranial Nerve IX- Glossopharyngeal: Intact Cranial Nerve X- Vagus: Intact Cranial Nerve XI- Accessory: Intact Cranial Nerve XII- Hypoglossal: Intact Results CBC & Chem 7: 10/26/19 08:29 10/26/19 08:25 Labs: Abnormal Lab Results - Last 24 Hours (Table) 10/25/19 10/26/19 Range/Units 22:00 08:25 Glucose 125 H (74-99) mg/dL Delta Bilirubin 0.4 H (0.0-0.2) mg/dL HDL Cholesterol 35 L (40-60) mg/dL TSH 0.367 L (0.465-4.680) mIU/L Urine Cocaine Screen Detected H (NotDetected) U Marijuana (THC) Screen Detected H (NotDetected) Assessment and Plan Assessment: 43-year-old male with history of schizoaffective disorder and polysubstance abuse. Benson continue management per psychiatry. He denies any history of medical problems or STDs. Denies history of drinking. We will check usual blood work with TSH A1c and lipid panel. May and screening for hep B hep C and HIV given the history of polysubstance abuse.
[2019-10-26 17:34] LABS: Hemoglobin A1C 5.8 % (4.0-6.0)
[2019-10-27] MEDS: MENTHOL (NICE) LOZENGE MUCOUS MEM PRN ×4 (00:24→21:12)
[2019-10-27 06:44] LABS: T4, Free (Free Thyroxine) 1.3 ng/dL (0.78-2.19)
[2019-10-27] MEDS: BENZTROPINE MESYLATE 0.5 MG TAB PO SCH ×2 (08:43→20:42)
[2019-10-27 11:34] LABS: Hepatitis B Surface AB- Quant 3.5 mIU/mL; Hepatitis B Surface Antibody Non-Reactive (Non-Reactive); Hepatitis B Surface Antigen Non-Reactive (Non-Reactive); Hepatitis C IgG Antibody Non-Reactive (Non-Reactive)
[2019-10-27] MEDS: NICOTINE POLACRILEX 2 MG GUM BUCCAL PRN ×3 (13:24→19:29)
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
[2019-10-27 15:44] LABS: HIV 1 AB Non-Reactive (Non-Reactive); HIV 2 AB Non-Reactive (Non-Reactive); HIV AB P24 Non-Reactive (Non-Reactive); HIV P24 AG Non-Reactive (Non-Reactive)
[2019-10-27] MEDS: LORazepam 1 MG TAB PO PRN (22:24)
[2019-10-28] MEDS: NICOTINE POLACRILEX 2 MG GUM BUCCAL PRN ×5 (01:02→20:49)
[2019-10-28] MEDS: PANTOPRAZOLE 40 MG TABLET PO SCH (08:05)
[2019-10-28] MEDS: BENZTROPINE MESYLATE 0.5 MG TAB PO SCH ×2 (08:05→20:50)
[2019-10-28] MEDS: carBAMazepine 200 MG TAB PO SCH ×2 (10:33→20:49)
[2019-10-28] MEDS: MENTHOL (NICE) LOZENGE MUCOUS MEM PRN (12:01)
--- NOTE | 2019-10-28 13:03 | P.PN ---
Subjective Progress Note Date: 10/28/19 Principal diagnosis: Schizoaffective disorder bipolar type with acute exacerbation, akathisia, poor compliance with psychiatric treatment, cocaine use disorder severe, cannabis use disorder severe, methamphetamine use disorder severe, other hallucinogenic disorder, severe, tobacco use disorder I reviewed the medical record, interviewed the patient and discuss his treatment and treatment plan during team meeting. He continues to maintain that he does not have schizophrenia "anymore" and does not require treatment with a "antipsychotic". He accepted my recommendation for a trial of Tegretol for the treatment of his irritability and anger. He denies feeling depressed, hopeless or helpless. He denied experiencing auditory, visual or olfactory hallucinations. He denied ideas reference, thought insertion, thought broadcasting or thought control. Objective - Vital Signs Vital signs: Vital Signs Temp 98.1 F 10/28/19 00:15 Pulse 88 10/28/19 00:15 Resp 18 10/28/19 00:15 BP 121/87 10/28/19 00:15 Pulse Ox 96 10/26/19 03:04 - Exam He was casually dressed and groomed. He shaved his head last night. He is pleasant on approach. He sat comfortably throughout the interview. He was restless and did not display involuntary movements. His affect was bright, stable and appropriate. Her speech was spontaneous with normal rate, rhythm and volume. He was much less irritable and he was not argumentative. His thinking was concrete but his associations were coherent. He was not paranoid, encourage or suspicious. He did not appear to be responding to internal stimuli. - Labs CBC & Chem 7: 10/26/19 08:29 10/26/19 08:25 Assessment and Plan Assessment: He is less irritable, paranoid and suspicious on admission. The restlessness and EPS have decreased substantially. Although was opposed treatment antipsychotic particularly an injectable antipsychotic he agreed to begin a mood stabilizer. Plan: Begin Tegretol 200 mg by mouth twice a day and titrated according to clinical response and tolerance. Continue Ativan and/or Geodon for anxiety, agitation or aggression. Nicotine replacement for tobacco use disorder. Encourage par ticipation in therapeutic groups and activities. Evaluate clinical status response to treatment daily basis.
[2019-10-28] MEDS: LORazepam 1 MG TAB PO PRN (19:26)
[2019-10-29] MEDS: PANTOPRAZOLE 40 MG TABLET PO SCH (09:22)
[2019-10-29] MEDS: carBAMazepine 200 MG TAB PO SCH (09:22)
[2019-10-29] MEDS: BENZTROPINE MESYLATE 0.5 MG TAB PO SCH ×2 (09:22→21:25)
[2019-10-29] MEDS: NICOTINE POLACRILEX 2 MG GUM BUCCAL PRN ×3 (13:02→19:50)
[2019-10-29] MEDS: MENTHOL (NICE) LOZENGE MUCOUS MEM PRN (14:27)
--- NOTE | 2019-10-29 14:57 | P.PN ---
Subjective Progress Note Date: 10/29/19 Principal diagnosis: Schizoaffective disorder bipolar type with acute exacerbation, akathisia, poor compliance with psychiatric treatment, cocaine use disorder severe, cannabis use disorder severe, methamphetamine use disorder severe, other hallucinogenic disorder, severe, tobacco use disorder I reviewed the medical record, interviewed the patient and discuss his treatment and treatment plan during team meeting. He complained of daytime sedation since he started Tegretol. He remains preoccupied by his experiences at [facility] and requested to have this case transferred from the act team.. He specifically denied experiencing auditory, visual or olfactory hallucinations, ideas reference, thought insertion, thought broadcasting or thought control. He denied feeling paranoid or suspicious. He minimizes substance abuse. He alleged that he was not using cocaine prior to admission and the presence of cocaine in his urine is probably related to contaminants in his marijuana. Objective - Vital Signs Vital signs: Vital Signs Temp 98.2 F 10/29/19 07:09 Pulse 59 L 10/29/19 07:09 Resp 18 10/29/19 07:09 BP 141/65 10/29/19 07:09 Pulse Ox 97 10/29/19 07:09 - Exam He was casually dressed and groomed. He is pleasant on approach. He sat comfortably throughout the interview. He was restless . His affect was bright, stable and appropriate. Her speech was spontaneous with normal rate, rhythm and volume. He was not irritable or argumentative. His thinking was concrete but his associations were coherent. He was not paranoid, encourage or suspicious. He did not appear to be responding to internal stimuli. - Labs CBC & Chem 7: 10/26/19 08:29 10/26/19 08:25 Assessment and Plan Assessment: He is less irritable, paranoid and suspicious on admission. The restlessness and EPS have decreased substantially. Although was opposed treatment antipsychotic particularly an injectable antipsychotic he agreed to begin a mood stabilizer. Plan: Decrease Tegretol to 200 mg at night. Continue Ativan and/or Geodon for anxiety, agitation or aggression. Nicotine replacement for tobacco use disorder. Encourage participation in therapeutic groups and activities. Evaluate clinical status response to treatment daily basis.
[2019-10-29] MEDS: LORazepam 1 MG TAB PO PRN (17:50)
[2019-10-29] MEDS ORDERED: carBAMazepine 200 MG TAB PO SCH (21:00)
[2019-10-30 07:11] VITALS: BP 126/69; PULSE 67; RESP 16; TEMP 97.7
[2019-10-30] MEDS: PANTOPRAZOLE 40 MG TABLET PO SCH (09:48)
[2019-10-30] MEDS: BENZTROPINE MESYLATE 0.5 MG TAB PO SCH (09:48)
[2019-10-30] MEDS: NICOTINE POLACRILEX 2 MG GUM BUCCAL PRN ×2 (09:49→12:03)
[2019-10-30] MEDS: LORazepam 1 MG TAB PO PRN (10:52)
--- NOTE | 2019-10-30 15:49 | P.DS ---
Providers Date of admission: 10/26/19 01:32 Attending physician: Kervin Gomez MD Consults: 10/26/19 01:34 Consult Physician Routine Consulting Provider: Leonela Physician Consult Reason/Comments: New Admission, H&P Do you want consulting provider notified?: Yes, Notify in am Primary care physician: [facility] - Discharge Diagnosis(es) (1) Schizoaffective disorder, bipolar type Status: Chronic Priority: Medium (2) Akathisia Status: Chronic Priority: Low (3) Poor compliance with medication Status: Chronic Priority: High (4) Cannabis use disorder, moderate, dependence Status: Chronic Priority: Medium (5) Nicotine dependence Status: Chronic Priority: Medium Hospital Course: He is a 43-year-old single male admitted to psychiatry unit voluntarily with the complaint that he wanted to "get my life back together." HISTORY OF PRESENT ILLNESS: On admission, he told the EPS nurse that he wanted to "fight [facility]." He complained that he was "tired of mental control". During our interview he perseverated about wanting to return to work. He complained repeatedly about his [facility] psychiatrist. He alleged that the psychiatrist is responsible for his use of cocaine. He made such statements as "all right wants to do is poke me, poke me. The medications don't anything for me. They just make me want to use drugs. They are making me use cocaine." He bragged that he has not taken his medication "in over 3 weeks". He alleged that he is "only" using cocaine. He denied the use of other drugs including methamphetamine, opioid medications, amphetamines, heroin, etc. His UDS was positive for cocaine and marijuana. He has a long history of mental illness and multiple psychiatric hospitalizations. According to the utilization review nurse she has been admitted this unit 21 times. He was last discharged from the unit in August 2019 with the diagnoses of schizoaffective disorder bipolar type, methamphetamine abuse, cannabis abuse, opiate abuse and nicotine dependence. His discharge medications included Lamictal 100 mg at bedtime, lithium carbonate 450 mg twice a day and Prolixin decanoate 50 mg weekly. He is enrolled with [facility] where he receives Prolixin decanoate 50 mg weekly. I reviewed the [facility] medication note from 09/14/2019 and spoke with his outpatient psychiatrist Dr. Fernandes. He is currently in the ACT program and treated with Prolixin decanoate 50 mg weekly. His last injection was on 10/15/2019. He was admitted to [facility] on 08/13/2019 (the day of discharge from our inpatient unit) for treatment of psychosis and the use of methamphetamine and cocaine. We admitted him to the psychiatric unit under care of this designer writer. Provided copies a biopsychosocial assessment. The [employer] sales consultant betting agency counter clerk completed initial physical exam and medical history and did not diagnose a major medical condition. He was steadfast against restarting an antipsychotic in particular Prolixin. Much of the admission was focuses on negotiating treatment of his chronic mental illness. He frequently expressed a belief that he "cured" himself of "schizophrenia". He denied that he was having auditory, visual or olfactory hallucinations, ideas reference, thought insertion, broadcasting or thought control. The presenting irritability and apparent thought disorganization remitted without medications. I suspect it was related to to his use of marijuana and/or cocaine. His UDS was positive for Cannabis and cocaine. We eventually agreed to a trial of Tegretol. Initial dose of 200 mg twice a day produced marked sedation but he agreed to continue at 200 mg at bedtime. He reported feeling less tense and angry with the Tegretol. He posed no management problem and had no episodes behavioral dyscontrol. He participated intermittently in therapeutic groups and activities. The akathisia decreased during hospitalization and had partial response to Cogentin 0.5 mg twice a day. Attempt discharge she presented as a casually groomed and dressed 43-year-old male who was pleasant on approach. He made eye contact and attended the interview. He had no distinguishing features or prominent physical abnormalities. He had a blunted but bright facial expression. His legs would shake intermittently throughout interview. He has slow and awkward gait. His speech was spontaneous with normal rate, rhythm and volume. His affect was blunted but stable and appropriate. He denies suicidal ideation, wishes or homicidal ideation. He denied feeling hopeless, helpless or worthless. He ruminated about his experiences in [facility] including the administration of IM med ications and his enrollment in the act program. He didn't express ideas reference, paranoid ideation or delusions. His thinking was concrete and organized. He denied hallucinations and did not appear to be responding to internal stimuli. Patient Condition at Discharge: Stable Plan - Discharge Summary Discharge Rx Participant: No New Discharge Prescriptions: New Benztropine Mesylate [Cogentin] 0.5 mg PO BID #60 tab Nicotine Polacrilex [Nicorette] 2 mg BUCCAL Q2H PRN gum PRN Reason: Nicotine Cravings Pantoprazole [Protonix] 40 mg PO AC-BRKFST #30 tablet. carBAMazepine [TEGretol] 200 mg PO HS #30 tab Discharge Medication List Benztropine Mesylate [Cogentin] 0.5 mg PO BID #60 tab 10/30/19 [Rx] Nicotine Polacrilex [Nicorette] 2 mg BUCCAL Q2H PRN gum 10/30/19 [Rx] Pantoprazole [Protonix] 40 mg PO AC-BRKFST #30 tablet. 10/30/19 [Rx] carBAMazepine [TEGretol] 200 mg PO HS #30 tab 10/30/19 [Rx] Follow up Appointment(s)/Referral(s): [facility] [Outside] - 11/02/19 5:00 pm (11/02/19 at 5:[address] Fernandes 11/02/19 at 4:00 p.m. ( afternoons) with Angel Krishnamurthy) [facility] [Primary Care Provider] - 1-2 days Patient Instructions/Handouts: Schizoaffective Disorder (DC), Suicide Prevention (DC) Activity/Diet/Wound Care/Special Instructions: Activity and diet as tolerated. Avoid the use of street drugs and alcohol. Take all medications as prescribed. When you are in need of refills on your medications please contact your medical provider and/or outpatient psychiatrist to have this done. Please go to scheduled outpatient appointment for aftercare t reatment. If symptoms return or become worse, call the crisis line at and/or go to the nearest emergency room for evaluation. Discharge Disposition: HOME SELF-CARE
== END 2019-10-30 14:25 | disposition home or self-care (01) | DRG 885 ==
LOC: EC 21:06 → 3MHU 10-26 01:32
PROVIDERS: ADMIT Psychiatry & Neurology Psychiatry; ATTEND Psychiatry & Neurology Psychiatry
DX: F25.0 Schizoaffective disorder, bipolar type (principal); F14.20 Cocaine dependence, uncomplicated; G25.71 Drug induced akathisia; F12.20 Cannabis dependence, uncomplicated; F11.10 Opioid abuse, uncomplicated; F17.210 Nicotine dependence, cigarettes, uncomplicated; G40.909 Epilepsy, unspecified, not intractable, without status epilepticus; J44.9 Chronic obstructive pulmonary disease, unspecified; M41.9 Scoliosis, unspecified; Z79.899 Other long term (current) drug therapy; Z91.14 Patient's other noncompliance with medication regimen
CPT/HCPCS: 71046; 80053; 80061; 80306; 81003; 82075; 82248; 83036; 84439; 84443; 85025; 86706; 86803; 87340; 87390; 99285

== ENCOUNTER 2020-03-01 12:38 | Emergency (ER) | payer MEDICARE, OTHER ==
[2020-03-01] MEDS ORDERED: SODIUM CHLORIDE 0.9% 1,000 ML IV ONE (12:45)
--- NOTE | 2020-03-01 12:48 | ED ---
General Adult HPI - General Stated complaint: dizziness Time Seen by Provider: 03/01/20 12:40 Source: patient, RN notes reviewed, old records reviewed - History of Present Illness Initial comments: This is a 44-year-old male who presents emergency department stating that he is been dizzy for 2 days. Patient states he has used meth and heroin recently. Patient states he does live in an apartment so does have access to water and has had no problems drinking but he still feels very dehydrated and dizzy. Patient denies any loss of consciousness. Patient denies any chest pain difficulty breathing shortness breath per patient denies any recent fever chills or cough per patient denies any abdominal pain. Patient denies any back pain. Patient denies any dysuria hematuria urinary frequency. Patient denies any nausea vomi ting or diarrhea. Patient denies any headache patient denies numbness or focal weakness - Related Data Home Medications Medication Instructions Recorded Confirmed Haloperidol Kadqrhpai217fo/1ml 200 mg IM Q14D 03/01/20 03/01/20 Omeprazole [PriLOSEC] 40 mg PO DAILY 03/01/20 03/01/20 traZODone HCL [Desyrel] 50 mg PO HS 03/01/20 03/01/20 Allergies Allergy/AdvReac Type Severity Reaction Status Date / Time cat dander Allergy Itching Verified 03/01/20 13:37 fluphenazine [From Prolixin] AdvReac seizures Verified 03/01/20 13:37 Review of Systems ROS Statement: Those systems with pertinent positive or pertinent negative responses have been documented in the HPI. ROS Other: All systems not noted in ROS Statement are negative. Past Medical History Past Medical History: GERD/Reflux, Musculoskeletal Disorder, Seizure Disorder Additional Past Medical History / Comment(s): scoliosis, herpes, hiatal hernia, migraines History of Any Multi-Drug Resistant Organisms: None Reported Past Surgical History: No Surgical Hx Reported Additional Past Surgical History / Comment(s): EGD about 10 years ago Past Anesthesia/Blood Transfusion Reactions: No Reported Reaction Smoking Status: Current every day smoker - Past Family History Mother History Unknown: Yes Additional Family Medical History / Comment(s): from suicide attempt Father History Unknown: Yes Additional Family Medical History / Comment(s): Reports that he is currently in the stages of dying- but wont clarify further. Inititally the patient stated his father was . General Exam - General Exam Comments Initial Comments: GENERAL: Patient is well-developed and well-nourished. Patient is nontoxic and well- hydrated and is in mild distress. ENT: Neck is soft and supple. No significant lymphadenopathy is noted. Oropharynx is clear. Moist mucous membranes. Neck has full range of motion without eliciting any pain. EYES: The sclera were anicteric and conjunctiva were pink and moist. Extraocular movements were intact and pupils were equal round and reactive to light. Eyelids were unremarkable. PULMONARY: Unlabored respirations. Good breath sounds bilaterally. No audible rales rhonchi or wheezing was noted. CARDIOVASCULAR: There is a regular rate and rhythm without any murmurs gallops or rubs. ABDOMEN: Soft and nontender with normal bowel sounds. SKIN: Skin is clear with no lesions or rashes and otherwise unremarkable. NEUROLOGIC: Patient is alert and oriented x3. Cranial nerves II through XII are grossly intact. Motor and sensory are also intact. Normal speech, volume and content. Symmetrical smile. MUSCULOSKELETAL: Normal extremities with adequate strength and full range of motion. No lower extremity swelling or edema. No calf tenderness. LYMPHATICS: No significant lymphadenopathy is noted PSYCHIATRIC: Normal psychiatric evaluation. Patient denies any suicidal ideations. Course Vital Signs 03/01/20 03/01/20 12:39 12:52 Temperature 98.5 F Pulse Rate 102 H Pulse Rate [ 79 Sitting] Pulse Rate [ 116 H Standing] Pulse Rate [ 101 H Supine] Respiratory 18 Rate Blood Pressure 111/78 Blood Pressure 107/69 [Sitting] Blood Pressure 96/74 [Standing] Blood Pressure 111/73 [Supine] O2 Sat by Pulse 97 95 Oximetry Medical Decision Making - Medical Decision Making EKG shows normal sinus rhythm at 96 bpm GA interval is 162 QRS is 92 QT interval 336 QTC is 424. Patient's EKG shows no ST segment elevation or depression. - Lab Data Result diagrams: 03/01/20 14:04 03/01/20 14:04 Lab Results 03/01/20 03/01/20 03/01/20 Range/Units 14:04 14:04 15:08 WBC 9.5 (3.8-10.6) k/uL RBC 5.08 (4.30-5.90) m/uL Hgb 14.6 (13.0-17.5) gm/dL Hct 45.2 (39.0-53.0) % MCV 88.9 (80.0-100.0) fL MCH 28.7 (25.0-35.0) pg MCHC 32.3 (31.0-37.0) g/dL RDW 14.1 (11.5-15.5) % Plt Count 290 (150-450) k/uL Neutrophils % 61 % Lymphocytes % 24 % Monocytes % 7 % Eosinophils % 5 % Basophils % 1 % Neutrophils # 5.8 (1.3-7.7) k/uL Lymphocytes # 2.2 (1.0-4.8) k/uL Monocytes # 0.7 (0-1.0) k/uL Eosinophils # 0.5 (0-0.7) k/uL Basophils # 0.1 (0-0.2) k/uL Sodium 137 (137-145) mmol/L Potassium 4.4 (3.5-5.1) mmol/L Chloride 101 (98-107) mmol/L Carbon Dioxide 27 (22-30) mmol/L Anion Gap 9 mmol/L BUN 22 H (9-20) mg/dL Creatinine 1.08 (0.66-1.25) mg/dL Est GFR (CKD-EPI)AfAm >90 (>60 ml/min/1.73 sqM) Est GFR (CKD-EPI)NonAf 82 (>60 ml/min/1.73 sqM) Glucose 75 (74-99) mg/dL Calcium 9.2 (8.4-10.2) mg/dL Magnesium 2.3 (1.6-2.3) mg/dL Total Bilirubin 0.4 (0.2-1.3) mg/dL AST 26 (17-59) U/L ALT 16 (4-49) U/L Alkaline Phosphatase 73 (38-126) U/L Total Protein 7.2 (6.3-8.2) g/dL Albumin 4.1 (3.5-5.0) g/dL Urine Opiates Screen Not Detected (NotDetected) Ur Oxycodone Screen Not Detected (NotDetected) Urine Methadone Screen Not Detected (NotDetected) Ur Propoxyphene Screen Not Detected (NotDetected) Ur Barbiturates Screen Detected H (NotDetected) U Tricyclic Antidepress Not Detected (NotDetected) Ur Phencyclidine Scrn Not Detected (NotDetected) Ur Amphetamines Screen Detected H (NotDetected) U Methamphetamines Scrn Not Detected (NotDetected) U Benzodiazepines Scrn Not Detected (NotDetected) Urine Cocaine Screen Not Detected (NotDetected) U Marijuana (THC) Screen Detected H (NotDetected) Disposition Clinical Impression: Dehydration, Methamphetamine abuse, Opioid abuse Disposition: HOME SELF-CARE Instructions (If sedation given, give patient instructions): Dizziness (ED), Methamphetamine (By mouth), Narcotic Use Disorder (ED) Is patient prescribed a controlled substance at d/c from ED?: No Referrals: [facility] [Primary Care Provider] - 1-2 days Time of Disposition: 15:40
[2020-03-01 14:56] LABS: Basophils # (A) 0.1 k/uL (0-0.2); Basophils % (A) 1 %; Eosinophils # (A) 0.5 k/uL (0-0.7); Eosinophils % (A) 5 %; HCT 45.2 % (39.0-53.0); HGB 14.6 gm/dL (13.0-17.5); Lymphocytes # (A) 2.2 k/uL (1.0-4.8); Lymphocytes % (A) 24 %; MCH 28.7 pg (25.0-35.0); MCHC 32.3 g/dL (31.0-37.0); MCV 88.9 fL (80.0-100.0); Mean Platelet Volume 7.4; Monocytes # (A) 0.7 k/uL (0-1.0); Monocytes % (A) 7 %; Neutrophils # (A) 5.8 k/uL (1.3-7.7); Neutrophils % (A) 61 %; Platelet Count 290 k/uL (150-450); RBC 5.08 m/uL (4.30-5.90); RDW 14.1 % (11.5-15.5); WBC 9.5 k/uL (3.8-10.6)
[2020-03-01 15:18] LABS: ALT 16 U/L (4-49); AST 26 U/L (17-59); African American GFR (CKD) >90 (>60 ml/min/1.73 sqM); Albumin 4.1 g/dL (3.5-5.0); Alkaline Phosphatase 73 U/L (38-126); Anion Gap 9 mmol/L; Blood Urea Nitrogen 22 mg/dL (9-20); Calcium 9.2 mg/dL (8.4-10.2); Carbon Dioxide 27 mmol/L (22-30); Chloride 101 mmol/L (98-107); Glucose 75 mg/dL (74-99); Magnesium 2.3 mg/dL (1.6-2.3); Non-African American GFR(CKD) 82 (>60 ml/min/1.73 sqM); Potassium 4.4 mmol/L (3.5-5.1); Sodium 137 mmol/L (137-145); Total Bilirubin 0.4 mg/dL (0.2-1.3); Total Protein 7.2 g/dL (6.3-8.2)
[2020-03-01 15:28] LABS: Amphetamine Screen,Urine Detected (NotDetected); Barbiturate Screen,Urine Detected (NotDetected); Benzodiazepines Screen,Urine Not Detected (NotDetected); Cocaine Screen,Urine Not Detected (NotDetected); Methadone Screen, Urine Not Detected (NotDetected); Opiate Screen,Urine Not Detected (NotDetected); Oxycodone Screen, Urine Not Detected (NotDetected); Phencyclidine Screen,Urine Not Detected (NotDetected); Tricyclic Antidepressant,Urine Not Detected (NotDetected); Urn Cannabinoid Scrn Detected (NotDetected)
[2020-03-01 15:53] VITALS: BP 103/82; PULSE 96; RESP 15; TEMP 97.7
== END 2020-03-01 15:54 | disposition home or self-care (01) ==
LOC: EC 12:38
DX: E86.0 Dehydration (principal); F11.10 Opioid abuse, uncomplicated; F15.10 Other stimulant abuse, uncomplicated; K21.9 Gastro-esophageal reflux disease without esophagitis; F31.9 Bipolar disorder, unspecified; F41.9 Anxiety disorder, unspecified; F17.200 Nicotine dependence, unspecified, uncomplicated; F25.9 Schizoaffective disorder, unspecified; Z79.899 Other long term (current) drug therapy; Z88.8 Allergy status to other drugs, medicaments and biological substances; Z91.048 Other nonmedicinal substance allergy status
CPT/HCPCS: 36415; 80053; 80306; 83735; 85025; 93005; 96360; 99284

== ENCOUNTER 2020-03-18 18:17 | Inpatient (IN) | payer MEDICARE, MEDICAID ==
--- NOTE | 2020-03-18 18:42 | ED ---
General Adult HPI - General Chief complaint: Psychiatric Symptoms Stated complaint: Mental Health Time Seen by Provider: 03/18/20 18:33 Source: patient, RN notes reviewed Mode of arrival: ambulatory Limitations: no limitations - History of Present Illness Initial comments: Patient is a pleasant 44-year-old male presenting to the emergency department for mental health evaluation. Patient has had increased depression recently. Patient is having thoughts of overdosing and going to sleep without waking up. Patient does have history of similar problems previously with overdose. Patient denies homicidal thoughts. Patient does occasionally shoot up speed and possibly opiates. Patient has been sleeping too much lately. Patient has been trying to eat like normal. No alcohol use. No homicidal thoughts. - Related Data Home Medications Medication Instructions Recorded Confirmed Haloperidol Vkginwxfy799vx/1ml 200 mg IM Q14D 03/01/20 03/18/20 Omeprazole [PriLOSEC] 40 mg PO DAILY 03/01/20 03/18/20 traZODone HCL [Desyrel] 50 mg PO HS 03/01/20 03/18/20 Allergies Allergy/AdvReac Type Severity Reaction Status Date / Time cat dander Allergy Itching Verified 03/18/20 19:29 fluphenazine [From Prolixin] AdvReac seizures Verified 03/18/20 19:29 Review of Systems ROS Statement: Those systems with pertinent positive or pertinent negative responses have been documented in the HPI. ROS Other: All systems not noted in ROS Statement are negative. Constitutional: Denies: fever Eyes: Denies: eye pain ENT: Denies: ear pain Respiratory: Denies: cough Cardiovascular: Denies: chest pain Endocrine: Denies: fatigue Gastrointestinal: Denies: abdominal pain Genitourinary: Denies: dysuria Musculoskeletal: Denies: back pain Skin: Denies: rash Neurological: Denies: weakness Psychiatric: Reports: depression, suicidal thoughts Past Medical History Past Medical History: GERD/Reflux, Musculoskeletal Disorder, Seizure Disorder Additional Past Medical History / Comment(s): scoliosis, herpes, hiatal hernia, migraines History of Any Multi-Drug Resistant Organisms: None Reported Past Surgical History: No Surgical Hx Reported Additional Past Surgical History / Comment(s): EGD about 10 years ago Past Anesthesia/Blood Transfusion Reactions: No Reported Reaction Past Psychological History: Anxiety, Bipolar, Depression, Schizoaffective Disorder Smoking Status: Current every day smoker Past Alcohol Use History: Rare Past Drug Use History: Cocaine, Marijuana, Methamphetamine - Past Family History Mother History Unknown: Yes Additional Family Medical History / Comment(s): from suicide attempt Father History Unknown: Yes Additional Family Medical History / Comment(s): Reports that he is currently in the stages of dying- but wont clarify further. Inititally the patient stated his father was . General Exam Limitations: no limitations General appearance: alert, in no apparent distress Head exam: Present: normocephalic Eye exam: Present: normal appearance Neck exam: Present: normal inspection Respiratory exam: Present: normal lung sounds bilaterally Cardiovascular Exam: Present: regular rate, normal rhythm GI/Abdominal exam: Present: soft. Absent: tenderness Extremities exam: Present: normal inspection Neurological exam: Present: alert Psychiatric exam: Present: depressed, flat affect Skin exam: Present: normal color Course Vital Signs 03/18/20 18:28 Temperature 98.1 F Pulse Rate 107 H Respiratory 20 Rate Blood Pressure 105/74 O2 Sat by Pulse 96 Oximetry Medical Decision Making - Medical Decision Making Patient was seen by mental health services with plans for psychiatric admission Disposition Clinical Impression: Depression, Suicidal ideation Disposition: TRANSFER TO PSYCH HOSP/UNIT Is patient prescribed a controlled substance at d/c from ED?: No Referrals: [facility] [Primary Care Provider] - 1-2 days Decision Time: 19:37
[2020-03-18] MEDS ORDERED: ACETAMINOPHEN TAB 325 MG TAB PO PRN (19:55)
[2020-03-18] MEDS ORDERED: MAGNESIUM HYDROXIDE 2,400 MG/10 ML CUP PO PRN (19:55)
[2020-03-18] MEDS ORDERED: HALOPERIDOL DECANOATE IM SCH (20:00)
[2020-03-18 20:08] LABS: Amphetamine Screen,Urine Detected (NotDetected); Barbiturate Screen,Urine Not Detected (NotDetected); Benzodiazepines Screen,Urine Not Detected (NotDetected); Cocaine Screen,Urine Not Detected (NotDetected); Methadone Screen, Urine Not Detected (NotDetected); Opiate Screen,Urine Not Detected (NotDetected); Oxycodone Screen, Urine Not Detected (NotDetected); Phencyclidine Screen,Urine Not Detected (NotDetected); Tricyclic Antidepressant,Urine Not Detected (NotDetected); Urn Cannabinoid Scrn Detected (NotDetected)
[2020-03-18] MEDS: MAG HYDROX/AL HYDROX/SIMETH 30 ML CUP PO PRN (20:17)
--- NOTE | 2020-03-19 04:10 | P.PN ---
Progress Note - Text Progress Note Date: 03/19/20 Attempted this the patient in the mental health unit at 11 PM on 03/18. The patient refused to be seen and examined.
[2020-03-19 06:23] LABS: Basophils # (A) 0.1 k/uL (0-0.2); Basophils % (A) 1 %; Eosinophils # (A) 0.7 k/uL (0-0.7); Eosinophils % (A) 8 %; HCT 44.4 % (39.0-53.0); HGB 14.6 gm/dL (13.0-17.5); Lymphocytes % (A) 23 %; MCH 29.3 pg (25.0-35.0); MCHC 32.9 g/dL (31.0-37.0); MCV 89.2 fL (80.0-100.0); Monocytes # (A) 0.5 k/uL (0-1.0); Monocytes % (A) 5 %; Neutrophils # (A) 5.5 k/uL (1.3-7.7); Neutrophils % (A) 61 %; Platelet Count 261 k/uL (150-450); RBC 4.98 m/uL (4.30-5.90); RDW 14.2 % (11.5-15.5)
[2020-03-19 06:30] LABS: ALT 13 U/L (4-49); AST 19 U/L (17-59); African American GFR (CKD) >90 (>60 ml/min/1.73 sqM); Albumin 3.8 g/dL (3.5-5.0); Alkaline Phosphatase 62 U/L (38-126); Anion Gap 5 mmol/L; Blood Urea Nitrogen 17 mg/dL (9-20); Calcium 8.8 mg/dL (8.4-10.2); Carbon Dioxide 22 mmol/L (22-30); Chloride 109 mmol/L (98-107); Cholesterol 139 mg/dL (<200); Glucose 100 mg/dL (74-99); HDL Cholesterol 43 mg/dL (40-60); LDL Cholesterol,Calculated 75 mg/dL (0-99); Non-African American GFR(CKD) >90 (>60 ml/min/1.73 sqM); Potassium 4.5 mmol/L (3.5-5.1); Sodium 136 mmol/L (137-145); Total Bilirubin 0.3 mg/dL (0.2-1.3); Total Protein 6.6 g/dL (6.3-8.2); Triglycerides 103 mg/dL (<150)
--- NOTE | 2020-03-19 12:07 | P.HP ---
Psychiatric H&P - . H&P Date: 03/19/20 History & Physical: Allergies Allergy/AdvReac Type Severity Reaction Status Date / Time cat dander Allergy Itching Verified 03/18/20 19:29 fluphenazine [From Prolixin] AdvReac seizures Verified 03/18/20 19:29 Vital Signs Temp 97.8 F 03/18/20 20:16 Pulse 103 H 03/18/20 20:16 Resp 16 03/18/20 20:16 BP 141/81 03/18/20 20:16 Pulse Ox 97 03/18/20 20:16 Intake & Output 03/18/20 03/19/20 03/19/20 18:59 06:59 18:59 Weight 63.503 kg Laboratory Last Values WBC 9.0 k/uL (3.8-10.6) 03/19/20 06:06 RBC 4.98 m/uL (4.30-5.90) 03/19/20 06:06 Hgb 14.6 gm/dL (13.0-17.5) 03/19/20 06:06 Hct 44.4 % (39.0-53.0) 03/19/20 06:06 MCV 89.2 fL (80.0-100.0) 03/19/20 06:06 MCH 29.3 pg (25.0-35.0) 03/19/20 06:06 MCHC 32.9 g/dL (31.0-37.0) 03/19/20 06:06 RDW 14.2 % (11.5-15.5) 03/19/20 06:06 Plt Count 261 k/uL (150-450) 03/19/20 06:06 Neutrophils % 61 % 03/19/20 06:06 Lymphocytes % 23 % 03/19/20 06:06 Monocytes % 5 % 03/19/20 06:06 Eosinophils % 8 % 03/19/20 06:06 Basophils % 1 % 03/19/20 06:06 Neutrophils # 5.5 k/uL (1.3-7.7) 03/19/20 06:06 Lymphocytes # 2.0 k/uL (1.0-4.8) 03/19/20 06:06 Monocytes # 0.5 k/uL (0-1.0) 03/19/20 06:06 Eosinophils # 0.7 k/uL (0-0.7) 03/19/20 06:06 Basophils # 0.1 k/uL (0-0.2) 03/19/20 06:06 Sodium 136 mmol/L (137-145) L 03/19/20 06:06 Potassium 4.5 mmol/L (3.5-5.1) 03/19/20 06:06 Chloride 109 mmol/L (98-107) H 03/19/20 06:06 Carbon Dioxide 22 mmol/L (22-30) 03/19/20 06:06 Anion Gap 5 mmol/L 03/19/20 06:06 BUN 17 mg/dL (9-20) 03/19/20 06:06 Creatinine 0.81 mg/dL (0.66-1.25) 03/19/20 06:06 Est GFR (CKD-EPI)AfAm >90 (>60 ml/min/1.73 sqM) 03/19/20 06:06 Est GFR (CKD-EPI)NonAf >90 (>60 ml/min/1.73 sqM) 03/19/20 06:06 Glucose 100 mg/dL (74-99) H 03/19/20 06:06 Calcium 8.8 mg/dL (8.4-10.2) 03/19/20 06:06 Total Bilirubin 0.3 mg/dL (0.2-1.3) 03/19/20 06:06 AST 19 U/L (17-59) 03/19/20 06:06 ALT 13 U/L (4-49) 03/19/20 06:06 Alkaline Phosphatase 62 U/L (38-126) 03/19/20 06:06 Total Protein 6.6 g/dL (6.3-8.2) 03/19/20 06:06 Albumin 3.8 g/dL (3.5-5.0) 03/19/20 06:06 Triglycerides 103 mg/dL (<150) 03/19/20 06:06 Cholesterol 139 mg/dL (<200) 03/19/20 06:06 LDL Cholesterol, Calc 75 mg/dL (0-99) 03/19/20 06:06 HDL Cholesterol 43 mg/dL (40-60) 03/19/20 06:06 TSH 0.222 mIU/L (0.465-4.680) L 03/19/20 06:06 Urine Opiates Screen Not Detected (NotDetected) 03/18/20 19:29 Ur Oxycodone Screen Not Detected (NotDetected) 03/18/20 19:29 Urine Methadone Screen Not Detected (NotDetected) 03/18/20 19:29 Ur Propoxyphene Screen Not Detected (NotDetected) 03/18/20 19:29 Ur Barbiturates Screen Not Detected (NotDetected) 03/18/20 19:29 U Tricyclic Antidepress Not Detected (NotDetected) 03/18/20 19:29 Ur Phencyclidine Scrn Not Detected (NotDetected) 03/18/20 19:29 Ur Amphetamines Screen Detected (NotDetected) H 03/18/20 19:29 U Methamphetamines Scrn Detected (NotDetected) H 03/18/20 19:29 U Benzodiazepines Scrn Not Detected (NotDetected) 03/18/20 19:29 Urine Cocaine Screen Not Detected (NotDetected) 03/18/20 19:29 U Marijuana (THC) Screen Detected (NotDetected) H 03/18/20 19:29 IDENTIFYING DATA: 44-year-old male patient HPI: Patient was admitted to the inpatient psychiatric unit on a voluntary basis. Patient at this time is not agreeable to meet with me. Relays that he does not have any questions. Per chart history he came into the hospital stating that he was done with life and wanted to overdose on street drugs. Also per chart history was verbalizing thoughts of suicide with EPS assessment and described plan to overdose. PAST PSYCHIATRIC HISTORY: He had a previous admission here in October 2019. Per chart history history of multiple inpatient psychiatric hospitalizations. Has had diagnoses per chart history of schizoaffective disorder, bipolar type, multiple substance use disorders. He was discharged from his last admission with Cogentin and Tegretol. Per chart history he has most recently been on Haldol Decanoate 200 mg IM every 2 weeks. PMH: Per chart history, history of seizure disorder, COPD and GERD. ALLERGIES: NO KNOWN DRUG ALLERGIES MEDICATIONS: Maalox when necessary, Tylenol when necessary, Ativan when necessary, milk of magnesia when necessary, Haldol decanoate every 2 weeks, Geodon when necessary CHEMICAL DEPENDENCY HISTORY: Per chart history, reference to use of amphe tamines, cocaine and methamphetamine in the past. FAMILY PSYCHIATRIC HISTORY: Not known at this time. FAMILY CHEMICAL DEPENDENCY HISTORY: Not known at this time. SOCIAL HISTORY: Per chart history born in [place], per chart history there is reference to having obtained a GED. Per chart history he has been on Social Security disability. Per chart history he is single. MENTAL STATUS EXAM: He is found in his room lying in bed. He is not agreeable to come meeting with me today. He relates that he does not have any questions. He does not display any significant agitation. He does not make any reference to thoughts of harm to self or others. Per EPS assessment he was verbalizing thoughts of suicide with plan to overdose. Insight currently is limited, judgment shows evidence of recent impairment. I'm not able to ascertain fully from a cognitive standpoint as he is not agreeable to the interview today. STRENGTHS/WEAKNESSES: Seeking treatment-strengths; coping skills-weakness INTELLECTUAL FUNCTIONING: Average IMPRESSIONS: Schizoaffective disorder, bipolar type; history of multiple substance use disorders. PLAN: Patient is admitted to the inpatient psychiatric unit on a voluntary ba sis. He is placed on SP 15 minute precautions. He'll be continued to be monitored regarding any thoughts aside. Baseline laboratory workup will be done the patient and medical consultation will be ordered. We will look into the date when he last received his Haldol decanoate. We'll reattempt to interview of patient does not tomorrow. Geodon and Ativan are ordered on a when necessary basis. Estimated length of stay is 5-7 days. Prognosis is guarded 03/19/20 11:53
[2020-03-19 13:49] LABS: Hemoglobin A1C 5.9 % (4.0-6.0)
[2020-03-19] MEDS: MAG HYDROX/AL HYDROX/SIMETH 30 ML CUP PO PRN (19:23)
[2020-03-20] MEDS ORDERED: WATER FOR INJECTION, STERILE 10 ML IV ONE (13:54)
[2020-03-20] MEDS: ZIPRASIDONE 20 MG VIAL IM PRN (13:54)
[2020-03-20] MEDS ORDERED: ZIPRASIDONE 20 MG VIAL IM ONE (13:54)
--- NOTE | 2020-03-20 13:56 | P.PN ---
Progress Note - Text Progress Note Date: 03/20/20 Interval history: Patient is seen in [facility] today. He is cooperative with coming to the interview room today. He makes reference of wanting to get out of here. He relays that he doesn't want any psychotropic medication. He would like the nicotine gum. He says he is ALLERGIC to the patch. He relates that he has been recently using speed. Mental status exam: He presents as irritable and agitated. His mood is irritable. He denies any current thoughts of self-harm. He does not verbalize any direct thoughts of harm to others but does make a reference to violence as he is leaving the interview room which is difficult to understand. His thought processes show some disorganization. Plan: Patient will be monitored regarding any agitation or psychosis symptoms. We will also monitor regarding thoughts of harm to self or others. He is ordered Ativan and Geodon on a when necessary basis. He relates that he doesn't want psychotropic medication.
[2020-03-20] MEDS: NICOTINE POLACRILEX 2 MG GUM BUCCAL PRN (18:41)
[2020-03-20] MEDS: MAG HYDROX/AL HYDROX/SIMETH 30 ML CUP PO PRN (18:41)
--- NOTE | 2020-03-21 11:23 | P.PN ---
Subjective Progress Note Date: 03/21/20 Principal diagnosis: Diagnosis: Schizoaffective disorder: Severe depression Stimulant abuse Subjective: The patient missed to being depressed and says he is just trying to make himself feel more comfortable with stimulants until he dies and he realizes that he is killing himself slowly. He has been struggling with suicidal ideas and maybe just taking an overdose. It is a history of taking overdoses in the past. He admits to using stimulants constantly says he really enjoys smoking marijuana and is done that his entire life does not use them much alcohol. His sleep is hard to assess between using stimulants and smoking pot some days he doesn't sleep at all and other days he sleeps too much. He says he has added antidepressants to his medications in the past with benefit he, like Cymbalta and has also been on Remeron with benefit in the past. However it is clear that he was probably using substances at the same time. Objective: Should be noted that his mother committed suicide so there is a family history of depression. Medically he has been diagnosed with GERD seizures scoliosis herpes hiatal hernia and migraines there is no note of any low thyroid however his TSH is quite low suggesting an elevated thyroid which could add to his agitation will see if we can get a consult with anything needs to be done about that The patient is on Haldol can await is a good dose I think I'm going to add some mirtazapine to that for the depression will check on the thyroid and watch his vitals. Vital signs temperature is 98.6 heart rate 94 respirations 16 blood pressure 106/66 Assessment plan patient is not doing well he is taking no personal responsibility to fight back against his depression he feels life is hopeless and he is doing, like to just get it over with. So he is definitely a danger to himself is going to be hard to get him to break out of this. Since he is not likely to do his part. Objective - Vital Signs Vital signs: Vital Signs Temp 98.6 F 03/21/20 06:11 Pulse 94 03/21/20 06:11 Resp 16 03/21/20 06:11 BP 106/66 03/21/20 06:11 Pulse Ox 97 03/20/20 13:32 - Labs CBC & Chem 7: 03/19/20 06:06 03/19/20 06:06
[2020-03-21] MEDS: NICOTINE POLACRILEX 2 MG GUM BUCCAL PRN ×4 (11:49→21:21)
[2020-03-21] MEDS: MAG HYDROX/AL HYDROX/SIMETH 30 ML CUP PO PRN ×2 (14:56→19:13)
[2020-03-21] MEDS: LORazepam 1 MG TAB PO PRN (19:14)
[2020-03-21] MEDS ORDERED: MIRTAZAPINE 15 MG TAB PO ONE (21:00)
[2020-03-22 03:05] LABS: T4, Free (Free Thyroxine) 1.19 ng/dL (0.78-2.19)
[2020-03-22] MEDS: MAG HYDROX/AL HYDROX/SIMETH 30 ML CUP PO PRN (03:09)
--- NOTE | 2020-03-22 08:54 | P.PN ---
Subjective Progress Note Date: 03/22/20 Principal diagnosis: Diagnosis: Schizoaffective disorder: Severe depression Stimulant abuse Subjective: Patient denies any blurred vision constipation and dizziness and dry mouth, he reports feeling tired most of the day. He received mirtazapine 15 mg last night but had difficulty with sleep so it is kind of sleepy when I talked with him this morning Objective: Temperature 98.2 heart rate 74 respirations 16 pulse ox 96 blood pressure 112/68, he has due for repeat of his Haldol Decanoate shot today. Staff say he is defensive guarded and irritable and withdrawn stayed in his room almost all day yesterday coming out only for short period of time but not interacting with his peers. He smells as if he has not been taking care of his ADLs is disheveled and appears agitated and anxious yet cooperative with staff. He is oriented to person place time and circumstance he did go to group and was attentive verbal and even initiated some conversation himself he was restless came to group left came back again. He is irritable on approach does not even want to talk to s taff. He is cooperative and signing permission for his medications although he says that he doesn't think the Haldol does him any good Assessment and plan: The patient remains a danger to self and others due to his deep depression and no active engagement in therapy no clear plans for the future. Objective - Vital Signs Vital signs: Vital Signs Temp 98.2 F 03/22/20 06:29 Pulse 74 03/22/20 06:29 Resp 16 03/22/20 06:29 BP 112/68 03/22/20 06:29 Pulse Ox 96 03/22/20 06:29 - Labs CBC & Chem 7: 03/19/20 06:06 03/19/20 06:06
[2020-03-22] MEDS ORDERED: HALOPERIDOL DECANOATE 50 MG/ML 1 ML VIAL IM SCH (09:00)
[2020-03-22] MEDS: PANTOPRAZOLE 40 MG TABLET PO SCH (10:10)
[2020-03-22] MEDS: NICOTINE POLACRILEX 2 MG GUM BUCCAL PRN ×3 (13:19→20:40)
[2020-03-22] MEDS: MIRTAZAPINE 15 MG TAB PO SCH (20:39)
[2020-03-22] MEDS: LORazepam 1 MG TAB PO PRN (20:40)
[2020-03-23] MEDS: PANTOPRAZOLE 40 MG TABLET PO SCH (08:24)
[2020-03-23] MEDS: NICOTINE POLACRILEX 2 MG GUM BUCCAL PRN ×6 (08:25→22:21)
--- NOTE | 2020-03-23 09:47 | P.PN ---
Subjective Progress Note Date: 03/23/20 Principal diagnosis: Diagnosis: Schizoaffective disorder: Severe depression Stimulant abuse Subjective: The patient says that he slept better last night but his old drowsy this morning. At home he was using trazodone but felt it didn't work that well. The Remeron was increased to 30 mg yesterday and the patient says he tolerated it well. He has not been going to groups even though he knows he probably should any says he has a thorough discharge plan thought out. I asked him to write it out and presented to me tomorrow Objective: Patient is more cooperative he got up out of bed came readily to my office to talk. He is oriented to person place time and circumstance reasonable eye contact he does look drowsy. No evidence of psychosis and he denies any hallucinations or delusions now or in for a long time in the past. He denies suicidal or homicidal thoughts. Vital signs: Temperature 90.8 heart rate 89 respiration 16 blood pressure 124/78 O2 sat is 98 Labs: Nothing new as noted before his TSH was low suggesting hyperthyroid and this was referred to internal medicine for further analysis. Nursing report is that the patient has a blunted affect and been withdrawn animal ADLs not contacting peers or others spontaneously is cooperative with his medication Assessment and plan: Patient still depressed but tolerating an antidepressant which I think will work well for him not expected to work for some time but we need to emphasize his discharge plan and insight and commitment to that plan so that he can be discharged and wait for the Remeron to kick in which should help. He promised to sit down today with paper and pen and write out his plan and also go to groups he remains a danger to himself due to recent suicidality and continued significant depressive symptoms Objective - Vital Signs Vital signs: Vital Signs Temp 98.0 F 03/23/20 06:40 Pulse 89 03/23/20 06:40 Resp 16 03/23/20 06:40 BP 124/78 03/23/20 06:40 Pulse Ox 98 03/23/20 06:40 - Labs CBC & Chem 7: 03/19/20 06:06 03/19/20 06:06
[2020-03-23] MEDS: LORazepam 1 MG TAB PO PRN (13:53)
[2020-03-23] MEDS: MIRTAZAPINE 15 MG TAB PO SCH (20:50)
[2020-03-24] MEDS: PANTOPRAZOLE 40 MG TABLET PO SCH (07:49)
[2020-03-24] MEDS: NICOTINE POLACRILEX 2 MG GUM BUCCAL PRN ×3 (07:49→14:18)
--- NOTE | 2020-03-24 08:18 | P.PN ---
Subjective Progress Note Date: 03/24/20 Principal diagnosis: Diagnosis: Schizoaffective disorder: Severe depression Stimulant abuse Subjective: Patient says that he slept well and is tolerating the Remeron well feeling that is already helping some with his urges to use substances. He says that he remembers doing really well and in the past and is not sure why he quit. I had asked him to put together a discharge plan which he has done although it is somewhat inadequate. He says he does have good friends that do not use substances and he'll hang out with them. He says that there are 12 step support groups in his area and he will go to them and find a sponsor. He says that he is going to call around to churches and try to find one that has a men's group in order to get support from them. 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 He seemed a little bit impaired on his judgment in that he had written up on appeal to [facility] to work here but suggested things like a can of dust and tightens screws. However I don't see this as bipolar or psychotic. Objective: Patient is a little tired which is expected when first starting on Remeron. However he came right up to me and had attempted to do the work that I asked him to. Vital signs: Temperature 97.7 heart rate 81 respirations 16 blood pressure 135/61 The patient said that he slept but according to staff he didn't he woke up a lot during the night and had trouble falling to sleep so he lay in bed just had a lot of interrupted sleep. The patient did go to the teen group stayed for about a half hour did not participate in the activity said he was anxious and just wanted to write things down. He was noted by staff to have some mild mood swings anxious trouble staying on topic and even talking to himself at times. He denied any suicidal thoughts or homicidal thoughts he was withdrawn and did not talk with peers. He says that everything here is making him more anxious he does comply with medications psychomotor activity is normal when I saw him he did not seem to be distracted by voices just a little too pressured to get out with the combined suggestion Will you tell me already but if I stay any longer and will make me worse. Assessment plan: The patient is cared for an ACT team it seems like it would be good to have one of them come and talk to them. It seems like this is a bit of a flight into health I'm feeling fine let me go without him really participating in groups the chances that he will go to 12-step groups find a job for follow-up on his plan seem unlikely since he can't even participate in AP group. He does complain of significant anxiety it might be useful to try some might Droxia seemed pamoate for that. Objective - Vital Signs Vital signs: Vital Signs Temp 97.7 F 03/24/20 05:48 Pulse 81 03/24/20 05:48 Resp 16 03/24/20 05:48 BP 135/61 03/24/20 05:48 Pulse Ox 98 03/23/20 06:40 - Labs CBC & Chem 7: 03/19/20 06:06 03/19/20 06:06
[2020-03-24 13:06] VITALS: BMI 22.6
[2020-03-24] MEDS: hydrOXYzine pamoate 25 MG CAP PO PRN (14:18)
[2020-03-24] MEDS: ZIPRASIDONE 20 MG VIAL IM PRN (16:53)
[2020-03-24] MEDS: MIRTAZAPINE 15 MG TAB PO SCH (19:45)
[2020-03-25] MEDS: NICOTINE POLACRILEX 2 MG GUM BUCCAL PRN ×6 (08:19→22:14)
[2020-03-25] MEDS: PANTOPRAZOLE 40 MG TABLET PO SCH (08:19)
--- NOTE | 2020-03-25 09:39 | P.PN ---
Subjective Progress Note Date: 03/25/20 Principal diagnosis: Diagnosis: Schizoaffective disorder: Severe depression Stimulant abuse Subjective: The patient said that when he complained of anxiety if you do not give him anything (however I offered him hydroxyzine pamoate and rooted in his chart as a when necessary which she did not take. He already is on Haldol but can weight is a significant dose and has had his shot recently however he got himself agitated to where he needed Geodon when necessary which he said didn't help him calm down and sleep he says he filled out a patient complaint against me because I don't listen to my patients. By which she means I don't agree with him and do what he wants me to do. Objective the patient has not been going to groups he says you have to let me out of here because his places agitating me. You can't hold me and imprison me this way. He feels he is ready for discharge. I discussed this with the team as to how they know when he is ready. And they say that he comes infrequently and when he gets to where he is going to groups and participating that is usually good sign he has not been able to go to any groups at this point. In our session today he showed flight of ideas raised his voice to try to make a point however when I tried to clarify his points because they did not make sense he would just get louder and eventually jumped up and walked out of the room slamming the door. Yesterday he was so positive about how the Remeron was helping him decrease his desire for drugs my question is, with his pressured speech and easy agitation, is a Remeron doing nothing or making him worse. It is too early for the Remeron to really help anything. Assessment plan: Yesterday the patient has a flight into health, now he is probably going through withdrawal from all the substances he uses but now instead of being really depressed he looks like he is more into a manic episode, although a lot of it could just be withdrawal and personality issues. The ques tion is what will help him with his anxiety we would rather not use Ativan I did encourage him to use the hydroxyzine on a regular basis. On 4 she has tried many different things in the past and does not want to add any new medicine but then he wants to get agitated when we don't give him something for anxiety. It is clear that he is a danger to self or others with his racing thoughts and lability. I don't think the Remeron is causing the trouble and he has done well on it in the past so I don't want to give up on it quite yet. Objective - Vital Signs Vital signs: Vital Signs Temp 98.0 F 03/24/20 19:07 Pulse 81 03/24/20 05:48 Resp 16 03/24/20 05:48 BP 135/61 03/24/20 05:48 Pulse Ox 98 03/23/20 06:40 Intake & Output 03/24/20 03/25/20 03/25/20 18:59 06:59 18:59 Weight 63.503 kg - Labs CBC & Chem 7: 03/19/20 06:06 03/19/20 06:06
[2020-03-25] MEDS: ZIPRASIDONE 20 MG VIAL IM PRN (09:47)
[2020-03-25] MEDS: MIRTAZAPINE 15 MG TAB PO SCH (20:03)
[2020-03-26] MEDS: NICOTINE POLACRILEX 2 MG GUM BUCCAL PRN ×4 (08:17→20:25)
[2020-03-26] MEDS: PANTOPRAZOLE 40 MG TABLET PO SCH (08:17)
[2020-03-26] MEDS: MIRTAZAPINE 15 MG TAB PO SCH (20:24)
[2020-03-26] MEDS: hydrOXYzine pamoate 25 MG CAP PO PRN (20:24)
--- NOTE | 2020-03-26 20:38 | PN ---
DATE OF SERVICE: 03/26/2020 PROGRESS NOTE CHIEF COMPLAINT: The patient has had issues with irritability, agitation, making suicidal comments about overdose and substance use issues. INTERVAL HISTORY: The patient has been doing fair. He had some increase in irritability yesterday. He did require IM medications to help him gain some control. He chooses not to attend groups. He acknowledges that he has some paranoid thinking. He slept fairly well last night. Today he has been up, he comes out in the day area. He has continued to choose not to go to groups. He was able to talk about some of his abuse of methamphetamine. He acknowledges that he has some anxiety and can get irritated by minor things happening around him. He says he does best if he keeps to himself. He has not had any difficulties with the start of his Haldol Decanoate and appears to tolerate his Remeron as well. MENTAL STATUS: Patient gave fair eye contact. Psychomotor activity was somewhat restless. He answered questions with brief responses. He did not say a lot. His affect was blunted. His mood reserved. He did seem to have a moderate level of distress. There was no immediate evidence for thought disorder. Cognition was clear. He voiced no thoughts of harm to self or others. ASSESSMENT: I will continue the current diagnosis and treatment plan. Patient will continue Remeron 30 mg a day. He has received Haldol Decanoate 200 mg on the . I had discussed the indication for his medications, as well as potential side effects and risks related to metabolics. I discussed monitoring parameters and long-term treatment issues relating to Decanoate preparation. We will continue to focus on stabilization and discharge planning. MMLUIS FELIPEL / ADALBERTON: [id number] / MTDCarol
[2020-03-27] MEDS: NICOTINE POLACRILEX 2 MG GUM BUCCAL PRN ×4 (08:20→21:45)
[2020-03-27] MEDS: PANTOPRAZOLE 40 MG TABLET PO SCH (08:20)
--- NOTE | 2020-03-27 17:27 | PN ---
PROGRESS NOTE DATE OF SERVICE: 03/27/2020. CHIEF COMPLAINT: The patient has had issues with irritability, agitation, making suicidal comments about overdose and substance use issues. INTERVAL HISTORY: Patient has been doing fair. He had a quiet evening last night. He will interact to a limited extent with others. He tends to keep to himself. He does not attend groups. He has been appropriate with staff and peers. He has been cooperative with care. He slept fair last night. He had some vomiting in the evening. He said he thinks mainly it was just stomach acid problems which he has had before. He says the issue has subsided. He acknowledges that some of that may have related to withdrawal issues. He slept fair last night. Today he has been up. He has tended to keep to himself and stay in his room. He chooses not to attend groups. He feels that his mood is somewhat improved. He talked some about discharge planning issues. He tolerates his psychotropic medications. MENTAL STATUS: Patient gave fair eye contact. Psychomotor activity was slowed. Speech was monotone. He answered questions with brief responses. He did not say a lot. His affect was blunted. His mood was quiet. He did not appear to be significantly down or distressed. There was no outward evidence of thought disorder, though he continues to acknowledge some sense of paranoid thinking. He voiced no thoughts of harm to self or others. Cognition was clear. ASSESSMENT: I will continue the current diagnosis and treatment plan. We will continue psychotropic medications the same. Patient appears to be showing some gradual improvement in mood and thoughts. I encouraged the patient to come to staff with any problems or concerns. We will coordinate with outpatient resources for followup care. MMODL / IJN: [id number] /
[2020-03-27] MEDS: MIRTAZAPINE 15 MG TAB PO SCH (21:28)
[2020-03-27] MEDS: hydrOXYzine pamoate 25 MG CAP PO PRN (23:16)
[2020-03-28] MEDS: NICOTINE POLACRILEX 2 MG GUM BUCCAL PRN ×7 (06:52→20:57)
[2020-03-28] MEDS: PANTOPRAZOLE 40 MG TABLET PO SCH (06:52)
--- NOTE | 2020-03-28 10:15 | P.PN ---
Subjective Progress Note Date: 03/28/20 Principal diagnosis: Diagnosis: Schizoaffective disorder: Severe depression Stimulant abuse Subjective: The patient was apologetic for how easily he had gotten agitated on Saturday. He says he sleeping well and eating well and denies any suicidal or homicidal thoughts. Objective vital signs: Temperature 90.8 heart rate 80 respiration 14 blood pressure 116/73 O2 sat 97 Labs: Nothing new Staff report that the patient is disheveled and had to be encouraged to shower he complained that the Remeron made him too sleepy so we backed off to a lower dose and he says that's working better but he said that that made him grumpy. He denied any psychotic symptoms denies any suicidal or homicidal thoughts Groups: He did not attend AT group last night in fact he does not seem to been going to any groups. I told her that I needed him going to groups and participating and handling stress well. I have found that people's response to the frustrations and challenges of group are in approximation of ordinary life stresses and give us a good idea of whether they are ready to handle being discharged or not. Mental status patient is alert oriented to person place time and circumstance is good eye contact gait and station are normal self-care is adequate response times are normal no evidence of psychosis no agitation. On Saturday I couldn't even ask him a question without him becoming agitated and storming out. Assessment plan the patient is doing a lot better I need to see him functioning in groups and not isolating to his room and working on his discharge plan no change of medicine will go to the lower dose of Remeron Objective - Vital Signs Vital signs: Vital Signs Temp 98.0 F 03/28/20 06:31 Pulse 80 03/28/20 06:31 Resp 14 03/28/20 06:31 BP 116/73 03/28/20 06:31 Pulse Ox 97 03/28/20 06:31 Intake & Output 03/27/20 03/28/20 03/28/20 18:59 06:59 18:59 Weight 64 kg - Labs CBC & Chem 7: 03/19/20 06:06 03/19/20 06:06
[2020-03-28] MEDS: hydrOXYzine pamoate 25 MG CAP PO PRN (11:48)
[2020-03-28] MEDS: MIRTAZAPINE 15 MG TAB PO SCH (20:10)
[2020-03-29 06:19] VITALS: TEMP 97.9
[2020-03-29] MEDS: PANTOPRAZOLE 40 MG TABLET PO SCH (08:03)
[2020-03-29] MEDS: NICOTINE POLACRILEX 2 MG GUM BUCCAL PRN ×6 (08:24→22:13)
--- NOTE | 2020-03-29 10:17 | P.PN ---
Subjective Progress Note Date: 03/29/20 Principal diagnosis: Diagnosis: Schizoaffective disorder: Severe depression Stimulant abuse Subjective the patient says that when he goes to group he gets agitated. However he wants to work on his discharge plan and his discharge budget [facility] therapy group. He was able understand that that was probably not appropriate and that he not only needs to go to groups he needs to participate. However he did go to groups yesterday which is a positive. And when he was agitated he went out calm himself and came back he says he is tolerating the medicine well sleeping better appetite is good without being excessive. Objective: The patient is alert calm reasonable self-care somewhat increased in energy level and pressure of speech however he is working on discharge plans appropriately saying that he has funding to go to school learn about horticulture and work on [employer] on mental status exam he is alert oriented to person place time and circumstance is relatively cooperative he can handle one on ones and is getting somewhat better at handling the stress of the groups he denies any suicidality or homicidality has no aggression no raising his voice no slamming on the table the way he did when I first met him. Vital signs: Temperature 97.9 heart rate 75 respirations 16 blood pressure 112/73 O2 sat 98 Labs: Nothing new The patient slept well last night at least 7 hours of uninterrupted sleep In groups he tends to speak on various topics rapidly and does not stay focused is little irritable and intrusive guarded and vague and his thoughts seemed to race and jump from topic to topic. However he is oriented to person place time and circumstance alert denies any suicidality or homicidality Assessment plan patient is gradually clearing I don't think we need to change his medications I told him if he can go to groups and participate and not get triggered that would go along way to feeling comfortable and letting him move onto his next setting. Objective - Vital Signs Vital signs: Vital Signs Temp 97.9 F 03/29/20 06:18 Pulse 75 03/29/20 06:18 Resp 16 03/29/20 06:18 BP 112/73 03/29/20 06:18 Pulse Ox 98 03/29/20 06:18 - Labs CBC & Chem 7: 03/19/20 06:06 03/19/20 06:06
[2020-03-29] MEDS: MIRTAZAPINE 15 MG TAB PO SCH (20:06)
[2020-03-30 06:48] VITALS: BP 136/76; PULSE 82; RESP 18
[2020-03-30] MEDS: PANTOPRAZOLE 40 MG TABLET PO SCH (07:39)
[2020-03-30] MEDS: NICOTINE POLACRILEX 2 MG GUM BUCCAL PRN ×2 (07:39→10:51)
--- NOTE | 2020-03-30 09:06 | P.DS ---
Providers Date of admission: 03/18/20 19:53 Expected date of discharge: 03/30/20 Attending physician: Flaquito Reyna MD Consults: 03/18/20 19:55 Consult Physician Routine Consulting Provider: Leonela Green Consult Reason/Comments: medical management Do you want consulting provider notified?: Yes Primary care physician: [facility] Course: Patient was admitted on 03/18/2020 This case 44-year-old male who was actively suicidal and depressed when he was admitted and a history of suicide attempts in the past. He had gone without his Haldol injection and it is worn off and he is acknowledging that he needs to get that on a regular basis. It is scheduled every 2 weeks. He did have his shot while in the hospital and in about 3 days began to calm down. The staff told me that they have worked with him in the past and that they can tell when he is ready for discharge because he goes to group and participates. As recently as 2 days ago he was still easily agitated walking out of groups when things didn't go his way but at least he was attending, then yesterday he went to the groups and was relatively cooperative. He put together a discharge plan: He says he has funding to go to school and learn horticulture and then get a job with [employer] he says he loves plants. 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 He believes that if he is going to school and working part-time that will fill up his time and he will not get in as much trouble. He says that he is more a chameleon, that when he is around friends who are using drugs, he uses, otherwise he doesn't. So the plan is to stay away from those friends. He was able to identify 2 friends and an uncle that he can do things with who do not use drugs. Prognosis: Due to past history is prognosis is guarded however I believe it is improved over when he came in. Diagnosis: Schizoaffective disorder depressed Stimulant abuse Plan the patient will continue in every 2 weeks of Haldol Decanoate plus low- dose Remeron which he has found helpful in the past for sleep and for depression and for cravings. He is going to try to keep be dizzy with school and work and he also has community mental health support for his medications. I strongly urged him to get into a 12 step group for the substance use Assessment: The patient was extremely agitated and overreacting to every little thing when he first came in he has had progressive calming on his medication. And is voicing no suicidal or homicidal thoughts and has a clear discharge plan so my assessment is that he is improved and has at least a fair prognosis Health Concerns: The patient has a history of reflux but is not complaining about that fact she has no active problems did not struggle with migraines he has a hiatal hernia scoliosis and a seizure disorder and herpes all these are chronic conditions he did not have any acute medical issues while in the hospital Pertinent Studies: He had basic laboratory tests run including a hematology which was negative general chemistry when he came in was normal except for a TSH of 0.222 which suggests an elevated thyroid. Toxicology showed positive for amphetamines and methamphetamines and marijuana use stimulants to get going marijuana calm down. He freely acknowledges that this contributed to his being admitted and that he needs to get help and stay off of them Procedures: None Patient Condition at Discharge: Stable Plan - Discharge Summary Discharge Rx Participant: No New Discharge Prescriptions: New Pantoprazole [Protonix] 40 mg PO AC-BRKFST tablet. Mirtazapine [Remeron] 15 mg PO HS 30 Days #30 tab Continue Omeprazole [PriLOSEC] 40 mg PO DAILY Haloperidol Rwjybohyw420qv/1ml 200 mg IM Q14D traZODone HCL [Desyrel] 50 mg PO HS 30 Days #30 tab Discharge Medication List Haloperidol [id number]/1ml 200 mg IM Q14D 03/01/20 [History] Omeprazole [PriLOSEC] 40 mg PO DAILY 03/01/20 [History] Mirtazapine [Remeron] 15 mg PO HS 30 Days #30 tab 03/30/20 [Rx] Pantoprazole [Protonix] 40 mg PO AC-BRKFST tablet. 03/30/20 [Rx] traZODone HCL [Desyrel] 50 mg PO HS 30 Days #30 tab 03/30/20 [Rx] Follow up Appointment(s)/Referral(s): [facility] [Primary Care Provider] - 1-2 days Activity/Diet/Wound Care/Special Instructions: Activity and diet as tolerated. Avoid the use of street drugs and alcohol. Take all medications as prescribed. When you are in need of refills on your medications please contact your medical provider and/or outpatient psychiatrist to have this done. Please go to scheduled outpatient appointment for aftercare treatment. If symptoms return or become worse, call the crisis line at and/or go to the nearest emergency room for evaluation
== END 2020-03-30 12:24 | disposition home or self-care (01) | DRG 885 ==
LOC: EC 18:17 → 3MHU 19:53
PROVIDERS: ADMIT Psychiatry & Neurology Psychiatry; ATTEND Psychiatry & Neurology Psychiatry
DX: F25.1 Schizoaffective disorder, depressive type (principal); R45.851 Suicidal ideations; F17.200 Nicotine dependence, unspecified, uncomplicated; F15.10 Other stimulant abuse, uncomplicated; F41.9 Anxiety disorder, unspecified; F12.90 Cannabis use, unspecified, uncomplicated; J44.9 Chronic obstructive pulmonary disease, unspecified; K21.9 Gastro-esophageal reflux disease without esophagitis; G40.909 Epilepsy, unspecified, not intractable, without status epilepticus; G43.909 Migraine, unspecified, not intractable, without status migrainosus; M41.9 Scoliosis, unspecified; Z98.890 Other specified postprocedural states; Z91.5 Personal history of self-harm; Z88.8 Allergy status to other drugs, medicaments and biological substances; Z91.09 Other allergy status, other than to drugs and biological substances
CPT/HCPCS: 80053; 80061; 80306; 82075; 83036; 84439; 84443; 84481; 85025; 99285

== ENCOUNTER 2020-05-18 23:26 | Emergency (ER) | payer MEDICARE, MEDICAID ==
--- NOTE | 2020-05-18 23:35 | ED ---
Psych HPI - General Stated Complaint: MENTAL HEALTH Time Seen by Provider: 05/18/20 23:30 Source: RN notes reviewed, old records reviewed Limitations: no limitations - History of Present Illness Initial Comments: This is a 44-year-old male DF for evaluation presents today for evaluation of hallucinations. Patient is on multiple psychiatric medications admits significant history of polysubstance abuse. Patient also was homicidal and thoughts and wanted to kill remains MD Complaint: altered mental status -: unknown Associated Psychiatric Symptoms: homicidal ideation, racing thoughts, auditory hallucinations, visual hallucinations, delusions History of same: Yes Quality: constant, getting worse Improves With: none Worsens With: none Context: recent drug abuse, not taking psychiatric medications Associated Symptoms: denies other symptoms Treatments Prior to Arrival: placed on mental health hold - Related Data Home Medications Medication Instructions Recorded Confirmed Haloperidol Hyayfkicf105ms/1ml 200 mg IM Q14D 03/01/20 03/18/20 Omeprazole [PriLOSEC] 40 mg PO DAILY 03/01/20 03/18/20 Previous Rx's Medication Instructions Recorded Mirtazapine [Remeron] 15 mg PO HS 30 Days #30 tab 03/30/20 Pantoprazole [Protonix] 40 mg PO [id number] tablet. 03/30/20 traZODone HCL [Desyrel] 50 mg PO HS 30 Days #30 tab 03/30/20 Allergies Allergy/AdvReac Type Severity Reaction Status Date / Time cat dander Allergy Itching Verified 05/18/20 23:48 fluphenazine [From Prolixin] AdvReac seizures Verified 05/18/20 23:48 Review of Systems ROS Statement: Those systems with pertinent positive or pertinent negative responses have been documented in the HPI. ROS Other: All systems not noted in ROS Statement are negative. Past Medical History Past Medical History: GERD/Reflux, Musculoskeletal Disorder, Seizure Disorder Additional Past Medical History / Comment(s): scoliosis, herpes, hiatal hernia, migraines History of Any Multi-Drug Resistant Organisms: None Reported Past Surgical History: No Surgical Hx Reported Additional Past Surgical History / Comment(s): EGD about 10 years ago Past Anesthesia/Blood Transfusion Reactions: No Reported Reaction Past Psychological History: Anxiety, Bipolar, Depression, Schizoaffective Disorder Smoking Status: Current every day smoker Past Alcohol Use History: Rare Past Drug Use History: Cocaine, Marijuana, Methamphetamine - Past Family History Mother History Unknown: Yes Additional Family Medical History / Comment(s): from suicide attempt Father History Unknown: Yes Additional Family Medical History / Comment(s): Reports that he is currently in the stages of dying- but wont clarify further. Inititally the patient stated his father was . General Exam General appearance: alert, in no apparent distress Head exam: Present: atraumatic, normocephalic, normal inspection Eye exam: Present: normal appearance, PERRL, EOMI. Absent: scleral icterus, conjunctival injection, periorbital swelling ENT exam: Present: normal exam, mucous membranes moist Neck exam: Present: normal inspection. Absent: tenderness, meningismus, lymphadenopathy Respiratory exam: Present: normal lung sounds bilaterally. Absent: respiratory distress, wheezes, rales, rhonchi, stridor Cardiovascular Exam: Present: regular rate, normal rhythm, normal heart sounds. Absent: systolic murmur, diastolic murmur, rubs, gallop, clicks GI/Abdominal exam: Present: soft, normal bowel sounds. Absent: distended, tenderness, guarding, rebound, rigid Extremities exam: Present: normal inspection, full ROM, normal capillary refill. Absent: tenderness, pedal edema, joint swelling, calf tenderness Back exam: Present: normal inspection Neurological exam: Present: alert, oriented X3, CN II-XII intact Psychiatric exam: Present: normal affect, normal mood Skin exam: Present: warm, dry, intact, normal color. Absent: rash Course Vital Signs 05/18/20 23:44 Temperature 97.3 F L Pulse Rate 90 Respiratory 18 Rate Blood Pressure 121/89 O2 Sat by Pulse 97 Oximetry - Reevaluation(s) Reevaluation #1: 05/19/20 00:00 Medical records reviewed 05/19/20 00:00 Medical clear for psychiatric evaluation Medical Decision Making - Medical Decision Making 44 male seen and evaluated psychiatry, patient stable for discharge home, did sign safety plan - Lab Data Lab Results 05/18/20 05/18/20 Range/Units 23:56 23:56 Urine Color Yellow Urine Appearance Clear (Clear) Urine pH 6.0 (5.0-8.0) Ur Specific [place] 1.020 (1.001-1.035) Urine Protein Negative (Negative) Urine Glucose (UA) Negative (Negative) Urine Ketones Negative (Negative) Urine Blood Negative (Negative) Urine Nitrite Negative (Negative) Urine Bilirubin Negative (Negative) Urine Urobilinogen <2.0 (<2.0) mg/dL Ur Leukocyte Esterase Negative (Negative) Urine Opiates Screen Not Detected (NotDetected) Ur Oxycodone Screen Not Detected (NotDetected) Urine Methadone Screen Not Detected (NotDetected) Ur Propoxyphene Screen Not Detected (NotDetected) Ur Barbiturates Screen Not Detected (NotDetected) U Tricyclic Antidepress Not Detected (NotDetected) Ur Phencyclidine Scrn Not Detected (NotDetected) Ur Amphetamines Screen Detected H (NotDetected) U Methamphetamines Scrn Detected H (NotDetected) U Benzodiazepines Scrn Not Detected (NotDetected) Urine Cocaine Screen Not Detected (NotDetected) U Marijuana (THC) Screen Detected H (NotDetected) Disposition Clinical Impression: Opioid abuse, Acute psychosis Disposition: HOME SELF-CARE Condition: Fair Instructions (If sedation given, give patient instructions): Brief Psychotic Disorder (ED) Is patient prescribed a controlled substance at d/c from ED?: No Referrals: [facility] [Primary Care Provider] - 1-2 days
[2020-05-19 00:02] LABS: Appearance,Urine Clear (Clear); Bilirubin,Urine Negative (Negative); Blood,Urine Negative (Negative); Color,Urine Yellow; Glucose,Urine (UA) Negative (Negative); Ketones,Urine Negative (Negative); Leukocyte Esterase,Urine Negative (Negative); Nitrite,Urine Negative (Negative); Protein,Urine Negative (Negative); Urobilinogen,Urine <2.0 mg/dL (<2.0)
[2020-05-19 00:14] LABS: Amphetamine Screen,Urine Detected (NotDetected); Barbiturate Screen,Urine Not Detected (NotDetected); Benzodiazepines Screen,Urine Not Detected (NotDetected); Cocaine Screen,Urine Not Detected (NotDetected); Methadone Screen, Urine Not Detected (NotDetected); Opiate Screen,Urine Not Detected (NotDetected); Oxycodone Screen, Urine Not Detected (NotDetected); Phencyclidine Screen,Urine Not Detected (NotDetected); Tricyclic Antidepressant,Urine Not Detected (NotDetected); Urn Cannabinoid Scrn Detected (NotDetected)
[2020-05-19 03:17] VITALS: BP 115/73; PULSE 68; RESP 16; TEMP 97.5
== END 2020-05-19 03:15 | disposition home or self-care (01) ==
LOC: EC 23:26
DX: F11.10 Opioid abuse, uncomplicated (principal); F23 Brief psychotic disorder; F25.9 Schizoaffective disorder, unspecified; K21.9 Gastro-esophageal reflux disease without esophagitis; F17.200 Nicotine dependence, unspecified, uncomplicated; Z79.899 Other long term (current) drug therapy; Z88.8 Allergy status to other drugs, medicaments and biological substances; Z91.048 Other nonmedicinal substance allergy status
CPT/HCPCS: 80306; 81003; 82075; 99285

== ENCOUNTER 2020-06-16 16:35 | Emergency (ER) | payer MEDICARE, OTHER ==
[2020-06-16 16:54] VITALS: BP 131/91; PULSE 118; RESP 20; TEMP 98.1
--- NOTE | 2020-06-16 17:17 | ED ---
General Adult HPI - General Chief complaint: Psychiatric Symptoms Stated complaint: Med Adjustment Time Seen by Provider: 06/16/20 16:43 Source: patient, RN notes reviewed, old records reviewed Mode of arrival: ambulatory Limitations: no limitations - History of Present Illness Initial comments: 44-year-old male presenting for psychiatric evaluation, patient requesting medication change. Patient is currently on haloperidol by Depo every 2 weeks. He states this medication is burning him from the inside out. He is not compliant with his oral medications. He is requesting a change in his psychiatrist. His medications are currently court ordered. Patient is paranoid, delusional at the time my evaluation. He believes his schizophrenia was drug-induced and that he does not actually have schizophrenia. He is not suicidal or homicidal. - Related Data Home Medications Medication Instructions Recorded Confirmed Haloperidol Xgijyqecs406eb/1ml 200 mg IM Q14D 03/01/20 06/16/20 Omeprazole [PriLOSEC] 40 mg PO DAILY 03/01/20 06/16/20 traZODone HCL 100 mg PO HS 06/16/20 06/16/20 Allergies Allergy/AdvReac Type Severity Reaction Status Date / Time cat dander Allergy Itching Verified 06/16/20 18:10 fluphenazine [From Prolixin] AdvReac seizures Verified 06/16/20 18:10 Review of Systems ROS Statement: Those systems with pertinent positive or pertinent negative responses have been documented in the HPI. ROS Other: All systems not noted in ROS Statement are negative. Past Medical History Past Medical History: GERD/Reflux, Musculoskeletal Disorder, Seizure Disorder Additional Past Medical History / Comment(s): scoliosis, herpes, hiatal hernia, migraines History of Any Multi-Drug Resistant Organisms: None Reported Past Surgical History: No Surgical Hx Reported Additional Past Surgical History / Comment(s): EGD about 10 years ago Past Anesthesia/Blood Transfusion Reactions: No Reported Reaction Past Psychological History: Anxiety, Bipolar, Depression, Schizoaffective Disorder Smoking Status: Current every day smoker Past Alcohol Use History: Rare Past Drug Use History: Cocaine, Marijuana, Methamphetamine - Past Family History Mother History Unknown: Yes Additional Family Medical History / Comment(s): from suicide attempt Father History Unknown: Yes Additional Family Medical History / Comment(s): Reports that he is currently in the stages of dying- but wont clarify further. Inititally the patient stated his father was . General Exam Limitations: no limitations General appearance: alert, in no apparent distress Head exam: Present: atraumatic, normocephalic Eye exam: Present: normal appearance, PERRL ENT exam: Present: normal exam Neck exam: Present: normal inspection. Absent: tenderness, meningismus Respiratory exam: Present: normal lung sounds bilaterally. Absent: respiratory distress, wheezes Cardiovascular Exam: Present: normal rhythm, tachycardia GI/Abdominal exam: Present: soft. Absent: distended, tenderness, guarding Extremities exam: Present: normal inspection, normal capillary refill. Absent: pedal edema Neurological exam: Present: alert Psychiatric exam: Present: flat affect, other (Paranoid, delusional) Skin exam: Present: warm, dry, intact. Absent: cyanosis, diaphoretic Course Vital Signs 06/16/20 16:39 Temperature 98.1 F Pulse Rate 118 H Respiratory 20 Rate Blood Pressure 131/91 O2 Sat by Pulse 97 Oximetry Medical Decision Making - Medical Decision Making 34-year-old male presenting for mental health evaluation. Patient medically cleared and evaluated by EPS. He has agreed to receive his haloperidol injection tomorrow at 2 PM. He has agreed to follow up with [facility] tomorrow as well. He has signed a safety plan has been cleared by psychiatry and EPS. He's been set up with the act Team. He is agreeable with discharge and close outpatient follow-up. Disposition Clinical Impression: Chronic schizophrenia Disposition: HOME SELF-CARE Condition: Fair Instructions (If sedation given, give patient instructions): Schizophrenia (ED) Additional Instructions: Please follow up with [facility] tomorrow at 2 PM. Is patient prescribed a controlled substance at d/c from ED?: No Referrals: [facility] [Primary Care Provider] - 1-2 days Time of Disposition: 19:05
== END 2020-06-16 19:30 | disposition home or self-care (01) ==
LOC: EC 16:35
DX: F20.9 Schizophrenia, unspecified (principal); K21.9 Gastro-esophageal reflux disease without esophagitis; F41.9 Anxiety disorder, unspecified; F31.9 Bipolar disorder, unspecified; F17.200 Nicotine dependence, unspecified, uncomplicated; Z79.899 Other long term (current) drug therapy; Z88.8 Allergy status to other drugs, medicaments and biological substances; Z91.048 Other nonmedicinal substance allergy status; Z81.8 Family history of other mental and behavioral disorders
CPT/HCPCS: 82075; 99285

== ENCOUNTER 2020-06-21 16:23 | Inpatient (IN) | payer MEDICARE, MEDICAID ==
--- NOTE | 2020-06-21 16:52 | ED ---
Psych HPI - General Source: patient, police Mode of arrival: ambulatory <Jorge A Palencia - Last Filed: 06/21/20 18:42> <Trent Suárez - Last Filed: 06/21/20 19:43> - General Chief Complaint: Psychiatric Symptoms Stated Complaint: pickup order Time Seen by Provider: 06/21/20 16:36 - History of Present Illness Initial Comments: Patient is a 44-year-old male with history of schizophrenia, depression and anxiety presenting to the emergency department for psychiatric evaluation. Patient states that he has been feeling agitated for quite some time. Patient brought to the ED due to pickup order by police. A member of the ACT team from [facility] went to drop off some medication and noticed the patient was very agitated. The patient states that he almost got into an altercation with the hospice team lead. Patient denies any homicidal, suicidal thoughts or ideations at this time. He has no other complaints. (Jorge A Palencia) - Related Data Home Medications Medication Instructions Recorded Confirmed Omeprazole [PriLOSEC] 40 mg PO DAILY 03/01/20 06/21/20 traZODone HCL 100 mg PO HS 06/16/20 06/21/20 Haloperidol Decanoate [Haldol D] 100 mg IM Q14D MDD next injection 06/21/20 06/21/2006/21 Allergies Allergy/AdvReac Type Severity Reaction Status Date / Time cat dander Allergy Itching Verified 06/21/20 18:09 fluphenazine [From Prolixin] AdvReac seizures Verified 06/21/20 18:09 Review of Systems ROS Other: All systems not noted in ROS Statement are negative. <Jorge A Palencia - Last Filed: 06/21/20 18:42> ROS Other: All systems not noted in ROS Statement are negative. <Trent Suárez - Last Filed: 06/21/20 19:43> ROS Statement: Those systems with pertinent positive or pertinent negative responses have been documented in the HPI. Past Medical History Past Medical History: GERD/Reflux, Musculoskeletal Disorder, Seizure Disorder Additional Past Medical History / Comment(s): scoliosis, herpes, hiatal hernia, migraines History of Any Multi-Drug Resistant Organisms: None Reported Past Surgical History: No Surgical Hx Reported Additional Past Surgical History / Comment(s): EGD about 10 years ago Past Anesthesia/Blood Transfusion Reactions: No Reported Reaction Past Psychological History: Anxiety, Bipolar, Depression, Schizoaffective Disorder Smoking Status: Current every day smoker Past Alcohol Use History: Rare Past Drug Use History: Cocaine, Marijuana, Methamphetamine - Past Family History Mother History Unknown: Yes Additional Family Medical History / Comment(s): from suicide attempt Father History Unknown: Yes Additional Family Medical History / Comment(s): Reports that he is currently in the stages of dying- but wont clarify further. Inititally the patient stated his father was . <SlimeOchoao - Last Filed: 06/21/20 18:42> General Exam Limitations: no limitations General appearance: alert, in no apparent distress Head exam: Present: atraumatic, normocephalic, normal inspection Eye exam: Present: normal appearance, PERRL, EOMI Pupils: Present: normal accommodation ENT exam: Present: normal exam, normal oropharynx, mucous membranes moist, TM's normal bilaterally, normal external ear exam Neck exam: Present: normal inspection, full ROM. Absent: tenderness Respiratory exam: Present: normal lung sounds bilaterally. Absent: respiratory distress, wheezes, rales Cardiovascular Exam: Present: regular rate, normal rhythm, normal heart sounds Extremities exam: Present: normal inspection, full ROM, normal capillary refill. Absent: tenderness Back exam: Present: normal inspection, full ROM. Absent: tenderness, CVA tenderness (R), CVA tenderness (L) Neurological exam: Present: alert, oriented X3, normal gait Psychiatric exam: Present: normal affect, normal mood Skin exam: Present: warm, dry, intact, normal color <SlimeJorge A - Last Filed: 06/21/20 18:42> General appearance: alert, in no apparent distress Head exam: Present: atraumatic, normocephalic, normal inspection Eye exam: Present: normal appearance, PERRL, EOMI. Absent: scleral icterus, conjunctival injection, periorbital swelling ENT exam: Present: normal exam, mucous membranes moist Neck exam: Present: normal inspection. Absent: tenderness, meningismus, lymphadenopathy Respiratory exam: Present: normal lung sounds bilaterally. Absent: respiratory distress, wheezes, rales, rhonchi, stridor Cardiovascular Exam: Present: regular rate, normal rhythm, normal heart sounds. Absent: systolic murmur, diastolic murmur, rubs, gallop, clicks GI/Abdominal exam: Present: soft, normal bowel sounds. Absent: distended, tenderness, guarding, rebound, rigid Extremities exam: Present: normal inspection, full ROM, normal capillary refill. Absent: tenderness, pedal edema, joint swelling, calf tenderness Back exam: Present: normal inspection Neurological exam: Present: alert, oriented X3, CN II-XII intact Psychiatric exam: Present: normal affect, normal mood Skin exam: Present: warm, dry, intact, normal color. Absent: rash <Trent Suárez - Last Filed: 06/21/20 19:43> Course <Trent Suárez - Last Filed: 06/21/20 19:43> Vital Signs 06/21/20 16:33 Temperature 98.1 F Pulse Rate 95 Respiratory 18 Rate Blood Pressure 121/87 O2 Sat by Pulse 99 Oximetry - Reevaluation(s) Reevaluation #1: 06/21/20 19:43 Medical records reviewed 06/21/20 19:43 Alexander farfan for psychiatric evaluation (Trent Suárez) Reevaluation #2: 06/21/20 19:43 I did made patient aware and fell out certification (Trent Suárez) Medical Decision Making <Jorge A Palencia - Last Filed: 06/21/20 18:42> <Trent Suárez - Last Filed: 06/21/20 19:43> - Medical Decision Making Patient is a 44-year-old male presenting to the emergency department for ps ychiatric evaluation. Patient is here due to turkey picker order. No homicidal, suicidal thoughts or ideations. Patient has been increasingly agitated against an ACT hospice team lead from [facility] . Patient was acting aggressive and was almost involved into a physical altercation. Urine drug screen positive for marijuana, barbiturates and amphetamines. EPS to evaluate the patient. At this time, patient Signed off to . (Jorge A Palencia) 44 male seen at [facility] will admit for psychiatric evaluation and treatment (Trent Suárez) - Lab Data Lab Results 06/21/20 Range/Units 17:44 Urine Opiates Screen Not Detected (NotDetected) Ur Oxycodone Screen Not Detected (NotDetected) Urine Methadone Screen Not Detected (NotDetected) Ur Propoxyphene Screen Not Detected (NotDetected) Ur Barbiturates Screen Detected H (NotDetected) U Tricyclic Antidepress Not Detected (NotDetected) Ur Phencyclidine Scrn Not Detected (NotDetected) Ur Amphetamines Screen Detected H (NotDetected) U Methamphetamines Scrn Not Detected (NotDetected) U Benzodiazepines Scrn Not Detected (NotDetected) Urine Cocaine Screen Not Detected (NotDetected) U Marijuana (THC) Screen Detected H (NotDetected) Disposition <Jorge A Palencia - Last Filed: 06/21/20 18:42> Is patient prescribed a controlled substance at d/c from ED?: No <Trent Suárez - Last Filed: 06/21/20 19:43> Clinical Impression: Acute anxiety, Chronic schizophrenia, Depression, Suicidal ideation Disposition: TRANSFER TO PSYCH HOSP/UNIT Condition: Fair Referrals: [facility] [Primary Care Provider] - 1-2 days
[2020-06-21 18:17] LABS: Amphetamine Screen,Urine Detected (NotDetected); Barbiturate Screen,Urine Detected (NotDetected); Benzodiazepines Screen,Urine Not Detected (NotDetected); Cocaine Screen,Urine Not Detected (NotDetected); Methadone Screen, Urine Not Detected (NotDetected); Opiate Screen,Urine Not Detected (NotDetected); Oxycodone Screen, Urine Not Detected (NotDetected); Phencyclidine Screen,Urine Not Detected (NotDetected); Tricyclic Antidepressant,Urine Not Detected (NotDetected); Urn Cannabinoid Scrn Detected (NotDetected)
[2020-06-21] MEDS ORDERED: MAGNESIUM HYDROXIDE 2,400 MG/10 ML CUP PO PRN (20:18)
[2020-06-21] MEDS ORDERED: ZIPRASIDONE 20 MG VIAL IM PRN (20:18)
[2020-06-21] MEDS ORDERED: LORazepam 2 MG/ML INJ IM PRN (20:33)
[2020-06-21] MEDS ORDERED: traZODone HCL 100 MG TAB PO SCH (21:00)
[2020-06-21] MEDS: NICOTINE 14MG/24HR PATCH TRANSDERM SCH (21:05)
--- NOTE | 2020-06-22 00:38 | P.PN ---
Progress Note - Text Progress Note Date: 06/21/20 patient refused to be evaluated at this time please notify sound physician when patient is more appropriate for eval
[2020-06-22] MEDS: PANTOPRAZOLE 40 MG TABLET PO SCH (08:58)
[2020-06-22] MEDS: NICOTINE 14MG/24HR PATCH TRANSDERM SCH (08:58)
[2020-06-22 09:45] LABS: Basophils # (A) 0.2 k/uL (0-0.2); Basophils % (A) 2 %; Eosinophils # (A) 0.7 k/uL (0-0.7); Eosinophils % (A) 10 %; HCT 50.5 % (39.0-53.0); HGB 16.2 gm/dL (13.0-17.5); Lymphocytes % (A) 29 %; MCH 29.6 pg (25.0-35.0); MCV 92.2 fL (80.0-100.0); Mean Platelet Volume 6.9; Monocytes # (A) 0.5 k/uL (0-1.0); Monocytes % (A) 8 %; Neutrophils # (A) 3.3 k/uL (1.3-7.7); Neutrophils % (A) 48 %; Platelet Count 281 k/uL (150-450); RBC 5.48 m/uL (4.30-5.90); WBC 6.8 k/uL (3.8-10.6)
[2020-06-22 10:00] LABS: ALT 16 U/L (4-49); AST 25 U/L (17-59); African American GFR (CKD) >90 (>60 ml/min/1.73 sqM); Albumin 4.4 g/dL (3.5-5.0); Alkaline Phosphatase 81 U/L (38-126); Anion Gap 9 mmol/L; Blood Urea Nitrogen 14 mg/dL (9-20); Calcium 9.5 mg/dL (8.4-10.2); Carbon Dioxide 26 mmol/L (22-30); Chloride 106 mmol/L (98-107); Cholesterol 170 mg/dL (<200); Glucose 135 mg/dL (74-99); HDL Cholesterol 48 mg/dL (40-60); LDL Cholesterol,Calculated 103 mg/dL (0-99); Non-African American GFR(CKD) 87 (>60 ml/min/1.73 sqM); Potassium 4.3 mmol/L (3.5-5.1); Sodium 141 mmol/L (137-145); Total Bilirubin 0.5 mg/dL (0.2-1.3); Total Protein 7.5 g/dL (6.3-8.2); Triglycerides 95 mg/dL (<150)
--- NOTE | 2020-06-22 13:03 | P.HP ---
Psychiatric H&P - . H&P Date: 06/22/20 History & Physical: Allergies Allergy/AdvReac Type Severity Reaction Status Date / Time cat dander Allergy Itching Verified 06/21/20 18:09 fluphenazine From Prolixin AdvReac seizures Verified 06/21/20 18:09 Vital Signs Temp 98.1 F 06/22/20 06:55 Pulse 89 06/22/20 06:55 Resp 16 06/22/20 06:55 BP 124/65 06/22/20 06:55 Pulse Ox 99 06/21/20 16:33 Intake & Output 06/21/20 06/22/20 06/22/20 18:59 06:59 18:59 Weight 66.224 kg Laboratory Last Values WBC 6.8 k/uL (3.8-10.6) 06/22/20 08:38 RBC 5.48 m/uL (4.30-5.90) 06/22/20 08:38 Hgb 16.2 gm/dL (13.0-17.5) 06/22/20 08:38 Hct 50.5 % (39.0-53.0) 06/22/20 08:38 MCV 92.2 fL (80.0-100.0) 06/22/20 08:38 MCH 29.6 pg (25.0-35.0) 06/22/20 08:38 MCHC 32.0 g/dL (31.0-37.0) 06/22/20 08:38 RDW 14.0 % (11.5-15.5) 06/22/20 08:38 Plt Count 281 k/uL (150-450) 06/22/20 08:38 Neutrophils % 48 % 06/22/20 08:38 Lymphocytes % 29 % 06/22/20 08:38 Monocytes % 8 % 06/22/20 08:38 Eosinophils % 10 % 06/22/20 08:38 Basophils % 2 % 06/22/20 08:38 Neutrophils # 3.3 k/uL (1.3-7.7) 06/22/20 08:38 Lymphocytes # 2.0 k/uL (1.0-4.8) 06/22/20 08:38 Monocytes # 0.5 k/uL (0-1.0) 06/22/20 08:38 Eosinophils # 0.7 k/uL (0-0.7) 06/22/20 08:38 Basophils # 0.2 k/uL (0-0.2) 06/22/20 08:38 Sodium 141 mmol/L (137-145) 06/22/20 08:38 Potassium 4.3 mmol/L (3.5-5.1) 06/22/20 08:38 Chloride 106 mmol/L (98-107) 06/22/20 08:38 Carbon Dioxide 26 mmol/L (22-30) 06/22/20 08:38 Anion Gap 9 mmol/L 06/22/20 08:38 BUN 14 mg/dL (9-20) 06/22/20 08:38 Creatinine 1.04 mg/dL (0.66-1.25) 06/22/20 08:38 Est GFR (CKD-EPI)AfAm >90 (>60 ml/min/1.73 sqM) 06/22/20 08:38 Est GFR (CKD-EPI)NonAf 87 (>60 ml/min/1.73 sqM) 06/22/20 08:38 Glucose 135 mg/dL (74-99) H 06/22/20 08:38 Calcium 9.5 mg/dL (8.4-10.2) 06/22/20 08:38 Total Bilirubin 0.5 mg/dL (0.2-1.3) 06/22/20 08:38 AST 25 U/L (17-59) 06/22/20 08:38 ALT 16 U/L (4-49) 06/22/20 08:38 Alkaline Phosphatase 81 U/L (38-126) 06/22/20 08:38 Total Protein 7.5 g/dL (6.3-8.2) 06/22/20 08:38 Albumin 4.4 g/dL (3.5-5.0) 06/22/20 08:38 Triglycerides 95 mg/dL (<150) 06/22/20 08:38 Cholesterol 170 mg/dL (<200) 06/22/20 08:38 LDL Cholesterol, Calc 103 mg/dL (0-99) H 06/22/20 08:38 HDL Cholesterol 48 mg/dL (40-60) 06/22/20 08:38 TSH 0.446 mIU/L (0.465-4.680) L 06/22/20 08:38 Urine Opiates Screen Not Detected (NotDetected) 06/21/20 17:44 Ur Oxycodone Screen Not Detected (NotDetected) 06/21/20 17:44 Urine Methadone Screen Not Detected (NotDetected) 06/21/20 17:44 Ur Propoxyphene Screen Not Detected (NotDetected) 06/21/20 17:44 Ur Barbiturates Screen Detected (NotDetected) H 06/21/20 17:44 U Tricyclic Antidepress Not Detected (NotDetected) 06/21/20 17:44 Ur Phencyclidine Scrn Not Detected (NotDetected) 06/21/20 17:44 Ur Amphetamines Screen Detected (NotDetected) H 06/21/20 17:44 U Methamphetamines Scrn Not Detected (NotDetected) 06/21/20 17:44 U Benzodiazepines Scrn Not Detected (NotDetected) 06/21/20 17:44 Urine Cocaine Screen Not Detected (NotDetected) 06/21/20 17:44 U Marijuana (THC) Screen Detected (NotDetected) H 06/21/20 17:44 06/22/20 12:48 IDENTIFYING DATA: Patient is a 44-year-old male with significant history of schizophrenia, depression, and anxiety with a history of multiple inpatient psychiatric hospitalizations admitted on a court order. HPI: Patient presented to the hospital on 06/21/2020 due to a pickup order. Patient was noted by his ACT team to be agitated, screaming obscenities, and being inches away from the ACT team members face and threatened to "beat his ass and push him down the stairs." He has been noted by the ACT team to be presenting with increased agitation, delusional thinking and paranoia. Patient acknowledges that he was agitated with the ACT team. He states that he feels like he has been on the wrong medications and that he requires no psychiatric treatment. He reports that he feels that the Haldol and trazodone have been making him feel increasingly sedated and unable to function. He does not express remorse for his agitation. He is not endorsing any significant symptoms of suicidal or homicidal ideation, intention, and/or plan. He denies any significant symptoms depression or anxiety. He is not reporting any auditory or visual hallucinations. When asked about delusions, the patient states that all his psychotic symptoms have been secondary to drug use. He also reports that the medications have stopped him from being "telepathic" but refused to elaborate. He does express strong disdain for any antipsychotic medications. He reports that he hates Haldol, Invega, Risperdal, Prolixin, and states that all these medications interrupted his ability to think straight and have caused him seizures. In regards to substance use, the patient endorses methamphetamine and marijuana use. He states he last used amphetamines 3 days ago. He reports daily marijuana use. He smokes proximal one pack per day of tobacco. He denies any alcohol. PAST PSYCHIATRIC HISTORY: Patient has a diagnosis of schizophrenia, depression, and anxiety. He also engages in polysubstance use including marijuana and methamphetamines. He has had multiple trials of medications including Haldol, Invega, Risperdal, Prolixin, and Trileptal. He has had multiple inpatient psychiatric admissions, with the last one being this past March. Open with the ACT team. He reports one prior attempt at suicide in the past but refuses to elaborate. Current prescribed medications include Haldol Decanoate 200 mg IM every 2 weeks, with the next administration due on [id number]. He is also prescribed trazodone 100 mg at bedtime as needed. PMH: COPD, GERD, seizure disorder, migraines ALLERGIES: as per EMR CHEMICAL DEPENDENCY HISTORY: as per HPI FAMILY PSYCHIATRIC/SUBSTANCE USE HISTORY: Patient reports multiple family members with mental illness but is unable to elaborate. SOCIAL HISTORY: Patient was born and raised in [place]. He reports that both his parents are . 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 He is currently receiving Social Security disability. He was never . MENTAL STATUS EXAM: General Appearance: Patient appears to be stated age is alert, directable, and mainly uncooperative. Patient appears to have poor hygiene and grooming. Behavior: Patient is seated without any agitated behavior. Psychomotor activity appears to be elevated. Speech: Patient's speech is spontaneous, normal in volume, nonpressured. Mood/Affect: Patient reports their mood is "can't think straight", affect is irritable. Suicidality/Homicidality: Patient denies having any homicidal ideation intent or plan. Denies any suicidal ideations intent or plan Perceptions: Patient denies any visual hallucinations and denies any auditory hallucinations Though content/process: He makes light mention of delusional thought content but refuses to elaborate. Memory and concentration: AOX3, grossly intact for the purposes of this session. Unable to assess attention span as patient refuses to participate. Judgment and insight: Very poor STRENGTHS/WEAKNESSES: strength is that patient is resilient. Weakness is that patient has poor judgment and engages in significant polysubstance use INTELLECT: Average IMPRESSIONS: Schizoaffective disorder, bipolar type Methamphetamine abuse Cannabis abuse Nicotine dependence PLAN: -Patient is admitted under involuntarily and is on a court order. -Medications : Continue Haldol Decanoate 200 mg IM every 2 weeks. Next dose to be administered on 06/29/2020. We will decrease trazodone to 50 mg by mouth at bedtime to reduce daytime sedation as per patient preference. May consider reinitiation of Trileptal versus starting Topamax for mood stabilization. -Ativan and Geodon PRN for agitation/aggression -Patient was counselled on substance abuse and is pre-contemplative to cut back on use -Patient was informed of the risks, benefits and side effects of the medication and patient verbally consented to taking the medications. -Internal Medicine consult to perform medical evaluation and physical. -NRT - nicotine patch -SW on board for discharge planning. Encourage patient to participate in groups to work on coping skills.
[2020-06-22 17:47] LABS: Hemoglobin A1C 5.2 % (4.0-6.0)
[2020-06-22] MEDS: traZODone HCL 50 MG TAB PO SCH (21:44)
[2020-06-22] MEDS: MAG HYDROX/AL HYDROX/SIMETH 30 ML CUP PO PRN (21:50)
--- NOTE | 2020-06-22 23:37 | P.PN ---
Progress Note - Text Progress Note Date: 06/22/20 patient refused evaluation again, on 06/22/2020 @ 2015
[2020-06-23] MEDS: PANTOPRAZOLE 40 MG TABLET PO SCH (08:58)
[2020-06-23] MEDS: NICOTINE 14MG/24HR PATCH TRANSDERM SCH (08:58)
--- NOTE | 2020-06-23 09:42 | P.PN ---
Progress Note - Text Progress Note Date: 06/23/20 Interval History: Patient was seen in bed and refused to get out of bed to speak with typewriter operator automatic in the office. Patient reports that he feels very tired. He has not taken his trazodone last night. Currently he is not endorsing any symptoms of depression, anxiety, or psychosis. At this time patient denies any suicidal or homicidal ideations, intent or plan. Patient denies any auditory, visual hallucinations and denies any paranoia or delusions. He has been refusing his medications but is currently receiving Haldol Decanoate every 2 weeks with the next dose to be administered on 06/29/2020. Mental Status Exam: General Appearance: Patient is currently resting in bed and is covered by his bed sheets. He is uncooperative at this time. Behavior: No eye contact is made during this interview. The patient's covering his face with his blanket. Speech: Patient's speech is fluent and nonpressured. Mood/Affect: Mood is tired, affect is irritable and constricted. Suicidality/Homicidality: Patient denies having any suicidal or homicidal ideation intent or plan. Perceptions: Patient denies any visual hallucinations and denies any auditory hallucinations Though content/process: There is no evidence of any delusional thought content and thought process is linear and goal-directed. Memory and concentration: AOX3, grossly intact for the purposes of this session Judgment and insight: Poor Assessment Schizoaffective disorder, bipolar type Methamphetamine abuse Cannabis abuse Nicotine dependence Plan: -Patient continues to meet criteria for inpatient psychiatric admission for symptom stabilization and safety. Petition and certificate has been filled out. -Medications: Continue Haldol Decanoate 200 mg IM every 2 weeks. Next dose to be administered on 06/29/2020. We will decrease trazodone to 50 mg by mouth at bedtime to reduce daytime sedation as per patient preference. Will consider the addition of Topamax for mood stabilization and irritability. -When necessary Ativan and Geodon for agitation/aggression. -NRT - nicotine patch -SW on board for discharge planning. Encouraged the patient to participate in milieu.
[2020-06-23] MEDS: MAG HYDROX/AL HYDROX/SIMETH 30 ML CUP PO PRN (17:35)
[2020-06-23] MEDS: traZODone HCL 50 MG TAB PO SCH (20:00)
[2020-06-24] MEDS: PANTOPRAZOLE 40 MG TABLET PO SCH (09:52)
[2020-06-24] MEDS: NICOTINE 14MG/24HR PATCH TRANSDERM SCH ×2 (09:52→11:01)
[2020-06-24] MEDS: LORazepam 1 MG TAB PO PRN ×2 (09:53→19:19)
--- NOTE | 2020-06-24 10:06 | P.PN ---
Progress Note - Text Progress Note Date: 06/24/20 Interval History: Patient was seen resting in bed and was directable and agreeable to speak with typewriter tester in the office. Patient endorses that he feels tired because of his medications. He did take his trazodone last night. Today, the patient endorses significant psychotic symptoms. He reports that hearing voices, seeing things, and his other psychotic symptoms are all part of his "congregation." He reports that he is in the process of hiring an claims attorney to [place] Dr. Delacruz because this is a violation of his jainism rights. He reports that he has been consuming multiple plans as part of his congregation. At this time patient denies any suicidal or homical ideations, intent or plan. Mental Status Exam: General Appearance: Patient appears his stated age, slightly disheveled, has multiple tattoos, and is dressed in hospital gown. Behavior: Eye contact is intermittent but intense. Psychomotor activity is elevated. Speech: Patient's speech is fluent and nonpressured. Mood/Affect: Mood is tired, affect is irritable and constricted. Suicidality/Homicidality: Patient denies having any suicidal or homicidal ideation intent or plan. Perceptions: Patient endorses auditory and visual hallucinations. Though content/process: He endorses delusions. Thought process appears to be illogical. Memory and concentration: AOX3, grossly intact for the purposes of this session Judgment and insight: Poor Assessment Schizoaffective disorder, bipolar type Methamphetamine abuse Cannabis abuse Nicotine dependence Plan: -Patient continues to meet criteria for inpatient psychiatric admission for symptom stabilization and safety. Petition and certificate has been filled out. -Medications: Continue Haldol Decanoate 200 mg IM every 2 weeks. Next dose to be administered on 06/29/2020. Continue trazodone to 50 mg by mouth at bedtime to reduce daytime sedation as per patient preference. Start Risperdal 1 mg by mouth at bedtime to address mood lability/psychosis. -When necessary Ativan and Geodon for agitation/aggression. -NRT - nicotine patch -SW on board for discharge planning. Encouraged the patient to participate in milieu.
[2020-06-24] MEDS: traZODone HCL 50 MG TAB PO SCH (20:55)
[2020-06-24] MEDS: risperiDONE 1 MG TAB PO SCH (20:55)
[2020-06-25] MEDS: PANTOPRAZOLE 40 MG TABLET PO SCH (08:48)
[2020-06-25] MEDS: NICOTINE 14MG/24HR PATCH TRANSDERM SCH (08:48)
--- NOTE | 2020-06-25 09:57 | P.PN ---
Progress Note - Text Progress Note Date: 06/25/20 Interval history: Patient was seen laying down in his bed and was directable and agreeable to s peak with caption writer. Patient appeared to have improvement in his irritability today, she attempted to cooperate with caption writer during the interview. He claims that he was feeling tired this morning and "was just waking up". He states he is able to sleep throughout the night with no overnight complaints. He did state that his roommate was getting "fussy" and disturbed him. He claims that his mood is "fine". Patient did not endorse any delusions today. At this time patient denies any suicidal or homicidal ideations intent or plan. Denies any Auditory or visual hallucinations. Mental status exam: General Appearance: Patient appears to be thin, stated age is alert, directable, and cooperative. Improving hygiene and grooming Behavior: No agitated behavior. Patient is calm and directable Speech: Patient's speech is fluent and nonpressured. Mood/Affect: Mood is improving mildly, affect is congruent and constricted. Suicidality/Homicidality: Patient denies having any suicidal or homicidal ideation intent or plan. Perceptions: Patient denies any auditory or visual hallucinations. Though content/process: Logical, goal oriented. Memory and concentration: AOX3, grossly intact for the purposes of this session Judgment and insight: Poor, improving mildly Assessment/Plan: Continue with current diagnosis. Patient continues to meet criteria for inpatient psychiatric admission for symptom stabilization and safety.Patient will be maintained on current psychotropic medication regimen. Monitor for medication compliance and for any psychotropic medication side effects. Will continue to monitor ongoing response to treatment. Encouraged participation in milieu.
[2020-06-25] MEDS: LORazepam 1 MG TAB PO PRN (11:40)
[2020-06-25] MEDS: MAG HYDROX/AL HYDROX/SIMETH 30 ML CUP PO PRN (11:40)
[2020-06-25] MEDS: risperiDONE 1 MG TAB PO SCH (22:30)
[2020-06-25] MEDS: traZODone HCL 50 MG TAB PO SCH (22:30)
[2020-06-26] MEDS: PANTOPRAZOLE 40 MG TABLET PO SCH (08:31)
[2020-06-26] MEDS: NICOTINE 14MG/24HR PATCH TRANSDERM SCH (08:31)
--- NOTE | 2020-06-26 10:54 | P.PN ---
Progress Note - Text Progress Note Date: 06/26/20 Interval history: Patient was seen laying down in his bed and was directable and agreeable to s peak with senior underwriter. Patient appeared to have improvement in his irritability today. He attempted to cooperate with senior underwriter during the interview. He claims that he was feeling tired this morning once again and claims that he was able to get up for breakfast this morning. He states overall he feels much better. He states he is able to sleep throughout the night with no overnight complaints did state that his roommate was loud last night and was awakened several times. He claims that his mood is "ok". Patient did not endorse any delusions today. At this time patient denies any suicidal or homicidal ideations intent or plan. Denies any Auditory or visual hallucinations. Mental status exam: General Appearance: Patient appears to be thin, stated age is alert, directable, and cooperative. Improving hygiene and grooming Behavior: No agitated behavior. Patient is calm and directable Speech: Patient's speech is fluent and nonpressured. Mood/Affect: Mood is improving mildly, affect is congruent and constricted. Suicidality/Homicidality: Patient denies having any suicidal or homicidal ideation intent or plan. Perceptions: Patient denies any auditory or visual hallucinations. Though content/process: Logical, goal oriented. Memory and concentration: AOX3, grossly intact for the purposes of this session Judgment and insight: Poor, improving mildly Assessment/Plan: Continue with current diagnosis. Patient continues to meet criteria for inpatient psychiatric admission for symptom stabilization and safety.Patient will be maintained on current psychotropic medication regimen. M onitor for medication compliance and for any psychotropic medication side effects. Will continue to monitor ongoing response to treatment. Encouraged participation in milieu.
[2020-06-26] MEDS: LORazepam 1 MG TAB PO PRN ×2 (12:57→20:14)
[2020-06-26] MEDS: traZODone HCL 50 MG TAB PO SCH (20:14)
[2020-06-26] MEDS: risperiDONE 1 MG TAB PO SCH (20:14)
--- NOTE | 2020-06-27 09:08 | P.PN ---
Progress Note - Text Progress Note Date: 06/27/20 Interval History: Patient was seen wandering the hallways and was directable and agreeable to speak with personal lines underwriter in the office. Patient states that he feels like he is on the correct medications. He is currently not endorsing any auditory or visual hallucinations. He denies any paranoia at this time. He does make an on statement stating that upon discharge, he will go Crystal mining in and around town. He reports that he will be looking for courts and other minerals. At this time patient denies any suicidal or homicidal ideations, intent or plan. He has been adherent with his medications and reports feeling "tired" as a side effect of his medications. Mental Status Exam: General Appearance: Patient appears his stated age, slightly disheveled, has multiple tattoos, and is dressed in a sweater and brown slacks. Behavior: Psychomotor activity is slightly elevated. Speech: Patient's speech is fluent and nonpressured. Mood/Affect: Mood is tired, affect is intense but euthymic. Suicidality/Homicidality: Patient denies having any suicidal or homicidal ideation intent or plan. Perceptions: Patient endorses auditory and visual hallucinations. Though content/process: Bizarre plans to go crystal mining around town. Memory and concentration: AOX3, grossly intact for the purposes of this session Judgment and insight: Poor Assessment Schizoaffective disorder, bipolar type Methamphetamine abuse Cannabis abuse Nicotine dependence Plan: -Patient continues to meet criteria for inpatient psychiatric admission for symptom stabilization and safety. Petition and certificate has been filled out. -Medications: Continue Haldol Decanoate 200 mg IM every 2 weeks. Next dose to be administered on 06/29/2020. We will likely administer Haldol prior to discharge. Continue trazodone to 50 mg by mouth at bedtime to reduce daytime sedation as per patient preference. Continue Risperdal 1 mg by mouth at bedtime to address mood lability/psychosis. -When necessary Ativan and Geodon for agitation/aggression. -NRT - nicotine patch -SW on board for discharge planning. Encouraged the patient to participate in milieu.
[2020-06-27] MEDS: NICOTINE 14MG/24HR PATCH TRANSDERM SCH (09:29)
[2020-06-27] MEDS: PANTOPRAZOLE 40 MG TABLET PO SCH (09:29)
[2020-06-27] MEDS: ACETAMINOPHEN TAB 325 MG TAB PO PRN (13:30)
[2020-06-27] MEDS: LORazepam 1 MG TAB PO PRN (13:34)
[2020-06-27] MEDS: risperiDONE 1 MG TAB PO SCH (20:30)
[2020-06-27] MEDS: traZODone HCL 50 MG TAB PO SCH (20:30)
[2020-06-28] MEDS: LORazepam 1 MG TAB PO PRN ×3 (02:17→19:16)
[2020-06-28 03:36] VITALS: BP 121/86; PULSE 104; RESP 14; TEMP 97.7
[2020-06-28] MEDS: NICOTINE 14MG/24HR PATCH TRANSDERM SCH (08:30)
[2020-06-28] MEDS: PANTOPRAZOLE 40 MG TABLET PO SCH (08:30)
--- NOTE | 2020-06-28 10:22 | P.PN ---
Progress Note - Text Progress Note Date: 06/28/20 Interval History: Patient was seen wandering the hallways and was directable and agreeable to speak with rewriter in the office. Patient states that he feels like he is on the correct medications. He continues endorse auditory thoughts and behaviors, in particular his focused on a certain cactus plan. He is otherwise not endorsing any auditory or visual hallucinations. He is not reporting any paranoia or any other delusions at this time. He is reporting no suicidal or homicidal ideation, intention, and/or plan. With that he is feeling well with the medication is not endorsing any significant side effects. He expresses understanding that he is to receive Haldol Decanoate prior to discharge. He was again informed that he will have to stop using methamphetamines. He reports that he was told by [facility] that they would stop Haldol decanoate when he stopped the methamphetamine and that he will try to quit. He is adherent with his medications and reports no significant side effects at this time. Mental Status Exam: General Appearance: Patient appears his stated age, slightly disheveled, has multiple tattoos, and is dressed in a sweater and brown slacks. Behavior: Psychomotor activity is normal. No abnormal or certificate behaviors are noted. Speech: Patient's speech is fluent and nonpressured. Mood/Affect: Mood is okay, affect is intense but euthymic. Suicidality/Homicidality: Patient denies having any suicidal or homicidal ideation intent or plan. Perceptions: Patient endorses auditory and visual hallucinations. Though content/process: Bizarre plans regarding cactus plant and sharing it with a friend. Memory and concentration: AOX3, grossly intact for the purposes of this session Judgment and insight: Improving mildly Assessment Schizoaffective disorder, bipolar type Methamphetamine abuse Cannabis abuse Nicotine dependence Plan: -Patient continues to meet criteria for inpatient psychiatric admission for symptom stabilization and safety. Patient deferred. -Medications: Continue Haldol Decanoate 200 mg IM every 2 weeks. We will administer Haldol Decanoate 200 mg IM tonight. Anticipate discharge in 1-2 days. Continue trazodone to 50 mg by mouth at bedtime to reduce daytime sedation as per patient preference. Continue Risperdal 1 mg by mouth at bedtime to address mood lability/psychosis. -When necessary Ativan and Geodon for agitation/aggression. -NRT - nicotine patch -SW on board for discharge planning. Encouraged the patient to participate in milieu.
[2020-06-28] MEDS: MAG HYDROX/AL HYDROX/SIMETH 30 ML CUP PO PRN (16:21)
[2020-06-28] MEDS ORDERED: HALOPERIDOL DECANOATE 100 MG/ML 1 ML VIAL IM SCH (19:00)
[2020-06-28] MEDS: traZODone HCL 50 MG TAB PO SCH (20:18)
[2020-06-28] MEDS: ACETAMINOPHEN TAB 325 MG TAB PO PRN (20:18)
[2020-06-29] MEDS: PANTOPRAZOLE 40 MG TABLET PO SCH (08:14)
[2020-06-29] MEDS: NICOTINE 14MG/24HR PATCH TRANSDERM SCH (08:14)
--- NOTE | 2020-06-29 10:31 | P.DS ---
Providers Date of admission: 06/21/20 20:00 Expected date of discharge: 06/29/20 Attending physician: Fidencio Manuel MD Consults: 06/21/20 20:18 Consult Physician Routine Consulting Provider: Lenoela Green Consult Reason/Comments: H&P and medical Do you want consulting provider notified?: Yes Primary care physician: [facility] - Discharge Diagnosis(es) (1) Schizoaffective disorder, bipolar type Current Visit: Yes Status: Acute Priority: High (2) Methamphetamine abuse Current Visit: Yes Status: Acute Priority: Medium (3) Cannabis abuse Current Visit: No Status: Chronic Priority: Medium (4) Nicotine dependence Current Visit: No Status: Chronic Priority: Medium Hospital Course: Admission HPI: Patient is a 44-year-old male with significant history of schizophrenia, depression, and anxiety with a history of multiple inpatient psychiatric hospitalizations admitted on a court order. Patient presented to the hospital on 06/21/2020 due to a pickup order. Patient was noted by his ACT team to be agitated, screaming obscenities, and being inches away from the ACT team members face and threatened to "beat his ass and push him down the stairs." He has been noted by the ACT team to be presenting with increased agitation, delusional thinking and paranoia. Patient acknowledges that he was agitated with the ACT team. He states that he feels like he has been on the wrong medications and that he requires no psychiatric treatment. He reports that he feels that the Haldol and trazodone have been making him feel increasingly sedated and unable to function. He does not express remorse for his agitation. He is not endorsing any significant symptoms of suicidal or homicidal ideation, intention, and/or plan. He denies any significant symptoms depression or anxiety. He is not reporting any auditory or visual hallucinations. When asked about delusions, the patient states that all his psychotic symptoms have been secondary to drug use. He also reports that the medications have stopped him from being "telepathic" but refused to elaborate. He does express strong disdain for any antipsychotic medications. He reports that he hates Haldol, Invega, Risperdal, Prolixin, and states that all these medications interrupted his ability to think straight and have caused him seizures. In regards to substance use, the patient endorses methamphetamine and marijuana use. He states he last used amphetamines 3 days ago. He reports daily marijuana use. He smokes proximal one pack per day of tobacco. He denies any alcohol. Hospital course: Upon admission to the unit patient was initially uncooperative and agitated. Patient began cooperating after the first night of the psychiatric hospitals edition. Patient got along well with other patients on the unit and followed unit protocol. Patient was compliant with the medications and denied any side effects throughout hospital course. Patient was started on Risperdal to address psychosis as he also had been receiving Haldol Decanoate 200 mg IM every 2 weeks through [facility]. His home medication of trazodone was decreased to 50 mg at bedtime as patient expressed oversedation during the day on the medication. Patient spoke of his stressors and engaged in therapy both group and individual. Patient was also seen by medical team for history and physical exam. Patient's drug screen was positive for methamphetamines. Throughout the course of the hospitalization patient gradually improved with regards to mood, psychosis, and sleep and became future oriented with improved insight and judgment. Patient was given his next dose of Haldol Decanoate 20 mg IM on the night of 06/28/2020. He tolerated the medications well and reported no significant side effects. On the day of discharge patient denied any suicidal or homicidal ideations intent or plan denied any auditory or visual hallucinations. Patient endorsed wanting to live for his health and his goals. The patient denied any access to guns or weapons. Patient denied any paranoia and did not endorse any delusions. Patient does have a significant history of substance abuse however was counseled on abstaining from all substances including alcohol and marijuana. Patient was offered however declined inpatient substance-abuse rehab. Patient was also counseled on the medications and need for regular compliance and was encouraged to follow-up with their outpatient appointment for mental health and also for primary care. This provider discussed at length the necessity of stopping methamphetamine use as this is what causes an exacerbation of his psychotic symptoms which leads to inpatient psychiatric hospitalizations. The patient verbalized understanding and stated that he would be quitting methamphetamine use. Mental status exam: General Appearance: Patient appears to be stated age is alert, pleasant, and cooperative. Patient is in no acute distress and has fair hygiene and grooming Behavior: Patient is calmly seated without any agitated behavior. Speech: Patient's speech is fluent and nonpressured. Mood/Affect: Patient reports their mood is "much better", affect is congruent and euthymic. Suicidality/Homicidality: Patient denies having any suicidal or homicidal ideation intent or plan. Perceptions: Patient denies any auditory or visual hallucinations. Though content/process: There is no evidence of any delusional thought content and thought process is linear and goal-directed. He is future oriented, and plans to go fishing. At baseline, the patient has a fascination on crystals, mushrooms, and other holistic beliefs. Memory and concentration: AOX3, grossly intact for the purposes of this session. Judgment and insight: Improved with guarded prognosis Impression: Schizoaffective disorder, bipolar type Methamphetamine abuse Cannabis abuse Nicotine dependence Plan: -Continue with discharge today as patient has improved and stabilized psychiatrically and is not currently an imminent threat to himself and/or others. Patient will remain at chronically elevated risk for harm to self and/or others due to his impulsivity and polysubstance abuse. -Continue medications: Haldol Decanoate 200 mg IM every 2 weeks. Last dose administered on 06/28/2020. Next dose to be given on 07/12/2020. Continue trazodone 50 mg by mouth at bedtime Continue Risperdal 0.5 mg at bedtime for psychosis. -Patient was counseled on the need for medication compliance and appropriate follow-up at mental health and also primary care for medical issues. Patient verbalized understanding and agreed. -Social work to arrange for and conduct family meeting to ensure safety upon discharge and answer any questions/concerns. Social work also to arrange for patients follow up appointments with [facility] for psychiatric care along with follow up with primary care provider. -Patient counseled on abstaining from recreational drugs and marijuana and alcohol. Was informed/educated on the adverse effects on their physical and mental health. Patient verbally agreed and understood. Patient was offered substance abuse treatment however declined at this time. -Patient was instructed to return to the hospital or seek immediate medical care if their psychiatric or medical symptoms do worsen or reoccur. Vital Signs Temp 97.7 F 06/28/20 02:15 Pulse 104 H 06/28/20 02:15 Resp 14 06/28/20 02:15 BP 121/86 06/28/20 02:15 Pulse Ox 99 06/24/20 09:54 Laboratory Results WBC 6.8 k/uL (3.8-10.6) 06/22/20 08:38 RBC 5.48 m/uL (4.30-5.90) 06/22/20 08:38 Hgb 16.2 gm/dL (13.0-17.5) 06/22/20 08:38 Hct 50.5 % (39.0-53.0) 06/22/20 08:38 MCV 92.2 fL (80.0-100.0) 06/22/20 08:38 MCH 29.6 pg (25.0-35.0) 06/22/20 08:38 MCHC 32.0 g/dL (31.0-37.0) 06/22/20 08:38 RDW 14.0 % (11.5-15.5) 06/22/20 08:38 Plt Count 281 k/uL (150-450) 06/22/20 08:38 Neutrophils % 48 % 06/22/20 08:38 Lymphocytes % 29 % 06/22/20 08:38 Monocytes % 8 % 06/22/20 08:38 Eosinophils % 10 % 06/22/20 08:38 Basophils % 2 % 06/22/20 08:38 Neutrophils # 3.3 k/uL (1.3-7.7) 06/22/20 08:38 Lymphocytes # 2.0 k/uL (1.0-4.8) 06/22/20 08:38 Monocytes # 0.5 k/uL (0-1.0) 06/22/20 08:38 Eosinophils # 0.7 k/uL (0-0.7) 06/22/20 08:38 Basophils # 0.2 k/uL (0-0.2) 06/22/20 08:38 Sodium 141 mmol/L (137-145) 06/22/20 08:38 Potassium 4.3 mmol/L (3.5-5.1) 06/22/20 08:38 Chloride 106 mmol/L (98-107) 06/22/20 08:38 Carbon Dioxide 26 mmol/L (22-30) 06/22/20 08:38 Anion Gap 9 mmol/L 06/22/20 08:38 BUN 14 mg/dL (9-20) 06/22/20 08:38 Creatinine 1.04 mg/dL (0.66-1.25) 06/22/20 08:38 Est GFR (CKD-EPI)AfAm >90 (>60 ml/min/1.73 sqM) 06/22/20 08:38 Est GFR (CKD-EPI)NonAf 87 (>60 ml/min/1.73 sqM) 06/22/20 08:38 Glucose 135 mg/dL (74-99) H 06/22/20 08:[address] Glu mg/dL 103 06/22/20 08:38 Hemoglobin A1c 5.2 % (4.0-6.0) 06/22/20 08:38 Calcium 9.5 mg/dL (8.4-10.2) 06/22/20 08:38 Total Bilirubin 0.5 mg/dL (0.2-1.3) 06/22/20 08:38 AST 25 U/L (17-59) 06/22/20 08:38 ALT 16 U/L (4-49) 06/22/20 08:38 Alkaline Phosphatase 81 U/L (38-126) 06/22/20 08:38 Total Protein 7.5 g/dL (6.3-8.2) 06/22/20 08:38 Albumin 4.4 g/dL (3.5-5.0) 06/22/20 08:38 Triglycerides 95 mg/dL (<150) 06/22/20 08:38 Cholesterol 170 mg/dL (<200) 06/22/20 08:38 LDL Cholesterol, Calc 103 mg/dL (0-99) H 06/22/20 08:38 HDL Cholesterol 48 mg/dL (40-60) 06/22/20 08:38 TSH 0.446 mIU/L (0.465-4.680) L 06/22/20 08:38 Urine Opiates Screen Not Detected (NotDetected) 06/21/20 17:44 Ur Oxycodone Screen Not Detected (NotDetected) 06/21/20 17:44 Urine Methadone Screen Not Detected (NotDetected) 06/21/20 17:44 Ur Propoxyphene Screen Not Detected (NotDetected) 06/21/20 17:44 Ur Barbiturates Screen Detected (NotDetected) H 06/21/20 17:44 U Tricyclic Antidepress Not Detected (NotDetected) 06/21/20 17:44 Ur Phencyclidine Scrn Not Detected (NotDetected) 06/21/20 17:44 Ur Amphetamines Screen Detected (NotDetected) H 06/21/20 17:44 U Methamphetamines Scrn Not Detected (NotDetected) 06/21/20 17:44 U Benzodiazepines Scrn Not Detected (NotDetected) 06/21/20 17:44 Urine Cocaine Screen Not Detected (NotDetected) 06/21/20 17:44 U Marijuana (THC) Screen Detected (NotDetected) H 06/21/20 17:44 Allergies Allergy/AdvReac Type Severity Reaction Status Date / Time cat dander Allergy Itching Verified 06/21/20 18:09 fluphenazine [From Prolixin] AdvReac seizures Verified 06/21/20 18:09 Patient Condition at Discharge: Fair Plan - Discharge Summary New Discharge Prescriptions: New traZODone HCL [Desyrel] 50 mg PO HS 30 Days tab Nicotine 14Mg/24Hr Patch [Habitrol] 1 patch TRANSDERM DAILY 30 Days patch Haloperidol Decanoate [Haldol D] 200 mg IM Q14D #1 vial risperiDONE [RisperDAL] 0.5 mg PO HS 30 Days tab Continue Omeprazole [PriLOSEC] 40 mg PO DAILY 30 Days cap Discontinued traZODone HCL 100 mg PO HS Haloperidol Decanoate [Haldol D] 100 mg IM Q14D MDD next injection 06/21 Discharge Medication List Haloperidol Decanoate [Haldol D] 200 mg IM Q14D #1 vial 06/29/20 [Rx] Nicotine 14Mg/24Hr Patch [Habitrol] 1 patch TRANSDERM DAILY 30 Days patch 06/29/20 [Rx] Omeprazole [PriLOSEC] 40 mg PO DAILY 30 Days cap 06/29/20 [Rx] risperiDONE [RisperDAL] 0.5 mg PO HS 30 Days tab 06/29/20 [Rx] traZODone HCL [Desyrel] 50 mg PO HS 30 Days tab 06/29/20 [Rx] Follow up Appointment(s)/Referral(s): [facility] [Primary Care Provider] - 1-2 days Patient Instructions/Handouts: Schizophrenia (DC) Activity/Diet/Wound Care/Special Instructions: Activity and diet as tolerated. Avoid the use of street drugs and alcohol. Take all medications as prescribed. When you are in need of refills on your medications please contact your medical provider and/or outpatient psychiatrist to have this done. Please go to scheduled outpatient appointment for aftercare treatment. If symptoms return or become worse, call the crisis line at and/or go to the nearest emergency room for evaluation. Discharge Disposition: HOME SELF-CARE
[2020-06-29] MEDS ORDERED: risperiDONE 0.5 MG TAB PO SCH (21:00)
[2020-07-01] MEDS ORDERED: HALOPERIDOL DECANOATE 100 MG/ML 1 ML VIAL IM SCH (16:00)
== END 2020-06-29 12:40 | disposition home or self-care (01) | DRG 885 ==
LOC: EC 16:23 → 3MHU 20:00
PROVIDERS: ADMIT Psychiatry & Neurology Psychiatry; ATTEND Psychiatry & Neurology Psychiatry
DX: F25.0 Schizoaffective disorder, bipolar type (principal); F12.10 Cannabis abuse, uncomplicated; F17.210 Nicotine dependence, cigarettes, uncomplicated; F41.9 Anxiety disorder, unspecified; G40.909 Epilepsy, unspecified, not intractable, without status epilepticus; K21.9 Gastro-esophageal reflux disease without esophagitis; M41.9 Scoliosis, unspecified; G43.909 Migraine, unspecified, not intractable, without status migrainosus; F15.10 Other stimulant abuse, uncomplicated; J44.9 Chronic obstructive pulmonary disease, unspecified; Z79.899 Other long term (current) drug therapy; Z88.8 Allergy status to other drugs, medicaments and biological substances; Z91.09 Other allergy status, other than to drugs and biological substances; Z98.890 Other specified postprocedural states; Z81.8 Family history of other mental and behavioral disorders
CPT/HCPCS: 80053; 80061; 80306; 82075; 83036; 84443; 85025; 99285

== ENCOUNTER 2020-06-30 06:11 | Emergency (ER) | payer MEDICARE, OTHER ==
--- NOTE | 2020-06-30 06:33 | ED ---
Psych HPI - General Chief Complaint: Psychiatric Symptoms Stated Complaint: Mental Health Time Seen by Provider: 06/30/20 06:20 Source: patient, RN notes reviewed, old records reviewed Mode of arrival: ambulatory - History of Present Illness Initial Comments: Patient is a 44-year-old male with a history of schizophrenia. He presents emergency department today after being discharged from mental health unit yesterday with chief complaint of continued delusions paranoia. Patient believes that impairs are soaking of blood and animals or biting him. He also believes there is bacteria in the water and discusses concerns for dysentery. Patient states that he has no significant physical complaints at this time. He does report that he was depressed and tried to cut himself. He reports his one small puncture wound over his left forearm. - Related Data Previous Rx's Medication Instructions Recorded Haloperidol Decanoate [Haldol D] 200 mg IM Q14D #1 vial 06/29/20 Nicotine 14Mg/24Hr Patch [Habitrol] 1 patch TRANSDERM DAILY 30 Days 06/29/20 patch Omeprazole [PriLOSEC] 40 mg PO DAILY 30 Days cap 06/29/20 risperiDONE [RisperDAL] 0.5 mg PO HS 30 Days tab 06/29/20 traZODone HCL [Desyrel] 50 mg PO HS 30 Days tab 06/29/20 Allergies Allergy/AdvReac Type Severity Reaction Status Date / Time cat dander Allergy Itching Verified 06/30/20 07:15 fluphenazine [From Prolixin] AdvReac seizures Verified 06/30/20 07:15 Review of Systems ROS Statement: Those systems with pertinent positive or pertinent negative responses have been documented in the HPI. ROS Other: All systems not noted in ROS Statement are negative. Past Medical History Past Medical History: GERD/Reflux, Musculoskeletal Disorder, Seizure Disorder Additional Past Medical History / Comment(s): scoliosis, herpes, hiatal hernia, migraines History of Any Multi-Drug Resistant Organisms: None Reported Past Surgical History: No Surgical Hx Reported Additional Past Surgical History / Comment(s): EGD about 10 years ago Past Anesthesia/Blood Transfusion Reactions: No Reported Reaction Past Psychological History: Anxiety, Bipolar, Depression, Schizoaffective Disorder Smoking Status: Current every day smoker Past Alcohol Use History: Rare Past Drug Use History: Cocaine, Marijuana, Methamphetamine - Past Family History Mother History Unknown: Yes Additional Family Medical History / Comment(s): from suicide attempt Father History Unknown: Yes Additional Family Medical History / Comment(s): Reports that he is currently in the stages of dying- but wont clarify further. Inititally the patient stated his father was . General Exam - General Exam Comments Initial Comments: Alert and delusional 44-year-old male Limitations: no limitations General appearance: alert, in no apparent distress Head exam: Present: atraumatic, normocephalic, normal inspection Eye exam: Present: normal appearance, PERRL, EOMI. Absent: scleral icterus, conjunctival injection, periorbital swelling ENT exam: Present: normal exam, mucous membranes moist Neck exam: Present: normal inspection, other (Multiple tattoos). Absent: tenderness, meningismus, lymphadenopathy Respiratory exam: Present: normal lung sounds bilaterally. Absent: respiratory distress, wheezes, rales, rhonchi, stridor Cardiovascular Exam: Present: regular rate, normal rhythm, normal heart sounds. Absent: systolic murmur, diastolic murmur, rubs, gallop, clicks GI/Abdominal exam: Present: soft, normal bowel sounds. Absent: distended, tenderness, guarding, rebound, rigid Back exam: Present: normal inspection Neurological exam: Present: alert, CN II-XII intact Psychiatric exam: Present: agitated, other. Absent: normal affect Skin exam: Present: warm (Delusional), dry, intact, normal color. Absent: rash Course Vital Signs 06/30/20 06/30/20 06:17 08:19 Temperature 97.8 F Pulse Rate 120 H Respiratory 20 20 Rate Blood Pressure 125/93 O2 Sat by Pulse 99 Oximetry - Reevaluation(s) Reevaluation #1: 06/30/20 06:33 Patient is medically clear this time for EPS evaluation Medical Decision Making - Medical Decision Making Pt was now evaluating by EPS, and will be discharged home as he was recently admitted the hospital will be discharged to the ACT team. Pt Pt has follow up appt at [facility] at 07-04-2020. - Lab Data Lab Results 06/30/20 Range/Units 06:41 Urine Opiates Screen Not Detected (NotDetected) Ur Oxycodone Screen Not Detected (NotDetected) Urine Methadone Screen Not Detected (NotDetected) Ur Propoxyphene Screen Not Detected (NotDetected) Ur Barbiturates Screen Not Detected (NotDetected) U Tricyclic Antidepress Not Detected (NotDetected) Ur Phencyclidine Scrn Not Detected (NotDetected) Ur Amphetamines Screen Not Detected (NotDetected) U Methamphetamines Scrn Not Detected (NotDetected) U Benzodiazepines Scrn Detected H (NotDetected) Urine Cocaine Screen Not Detected (NotDetected) U Marijuana (THC) Screen Detected H (NotDetected) Disposition Clinical Impression: Schizoaffective disorder Disposition: HOME SELF-CARE Condition: Good Is patient prescribed a controlled substance at d/c from ED?: No Referrals: [facility] [Primary Care Provider] - 1-2 days Time of Disposition: 10:38
[2020-06-30 07:28] LABS: Amphetamine Screen,Urine Not Detected (NotDetected); Barbiturate Screen,Urine Not Detected (NotDetected); Benzodiazepines Screen,Urine Detected (NotDetected); Cocaine Screen,Urine Not Detected (NotDetected); Methadone Screen, Urine Not Detected (NotDetected); Opiate Screen,Urine Not Detected (NotDetected); Oxycodone Screen, Urine Not Detected (NotDetected); Phencyclidine Screen,Urine Not Detected (NotDetected); Tricyclic Antidepressant,Urine Not Detected (NotDetected); Urn Cannabinoid Scrn Detected (NotDetected)
[2020-06-30] MEDS ORDERED: LORazepam 1 MG TAB PO STA (10:41)
[2020-06-30] MEDS ORDERED: ZIPRASIDONE 20 MG CAP PO STA (11:40)
[2020-06-30 12:48] VITALS: BP 119/77; PULSE 93; RESP 18; TEMP 98.1
== END 2020-06-30 12:52 | disposition home or self-care (01) ==
LOC: EC 06:11
DX: F25.9 Schizoaffective disorder, unspecified (principal); F17.200 Nicotine dependence, unspecified, uncomplicated; Z88.8 Allergy status to other drugs, medicaments and biological substances; Z91.048 Other nonmedicinal substance allergy status
CPT/HCPCS: 80306; 82075; 99285

== ENCOUNTER 2020-08-26 17:52 | Emergency (ER) | payer MEDICARE, OTHER ==
[2020-08-26 17:58] VITALS: RESP 18
--- NOTE | 2020-08-26 18:13 | ED ---
General Adult HPI - General Source: patient Mode of arrival: ambulatory Limitations: no limitations <Xander Dwyer - Last Filed: 08/26/20 22:56> <Khoa Martinez - Last Filed: 08/27/20 01:09> - General Chief complaint: Psychiatric Symptoms Stated complaint: Psych Eval Time Seen by Provider: 08/26/20 18:00 - History of Present Illness Initial comments: Patient presents the ED stating that he has been having hallucinations and delusions. He states that he has been hearing and seeing "spirits". Patient is a schizophrenic, and he states that he has been compliant with all of his medications. Patient admits to using cocaine and "speed" yesterday. Patient also states that he has taken mushrooms and mescaline today. Patient also admits to drinking "a sip of absinthe." today. Patient denies suicidal ideations, homicidal ideations, any other illicit drug use, medication abuse or overdose, trauma or injury, any pain, fever or chills, headache, chest pain, dyspnea, palpitations, dizziness, abdominal pain, vomiting/diarrhea, or any other symptoms or complaints. (Xander Dwyer) - Related Data Home Medications Medication Instructions Recorded Confirmed Sertraline HCl [Zoloft] 100 mg PO DAILY 08/26/20 08/26/20 Previous Rx's Medication Instructions Recorded Haloperidol Decanoate [Haldol D] 200 mg IM Q14D #1 vial 06/29/20 Omeprazole [PriLOSEC] 40 mg PO DAILY 30 Days cap 06/29/20 traZODone HCL [Desyrel] 50 mg PO HS 30 Days tab 06/29/20 Allergies Allergy/AdvReac Type Severity Reaction Status Date / Time cat dander Allergy Itching Verified 08/26/20 21:50 fluphenazine [From Prolixin] AdvReac seizures Verified 08/26/20 21:50 Review of Systems ROS Other: All systems not noted in ROS Statement are negative. <Xander Dwyer - Last Filed: 08/26/20 22:56> ROS Other: All systems not noted in ROS Statement are negative. <Khoa Martinez - Last Filed: 08/27/20 01:09> ROS Statement: Those systems with pertinent positive or pertinent negative responses have been documented in the HPI. Past Medical History Past Medical History: GERD/Reflux, Musculoskeletal Disorder, Seizure Disorder Additional Past Medical History / Comment(s): scoliosis, herpes, hiatal hernia, migraines History of Any Multi-Drug Resistant Organisms: None Reported Past Surgical History: No Surgical Hx Reported Additional Past Surgical History / Comment(s): EGD about 10 years ago Past Anesthesia/Blood Transfusion Reactions: No Reported Reaction Past Psychological History: Anxiety, Bipolar, Depression, Schizoaffective Disorder Smoking Status: Current every day smoker Past Alcohol Use History: Rare Past Drug Use History: Cocaine, Marijuana, Methamphetamine - Past Family History Mother History Unknown: Yes Additional Family Medical History / Comment(s): from suicide attempt Father History Unknown: Yes Additional Family Medical History / Comment(s): Reports that he is currently in the stages of dying- but wont clarify further. Inititally the patient stated his father was . <Xander Dwyer - Last Filed: 08/26/20 22:56> General Exam Limitations: no limitations General appearance: alert, in no apparent distress Head exam: Present: atraumatic, normocephalic Eye exam: Present: normal appearance, PERRL, EOMI ENT exam: Present: mucous membranes moist Neck exam: Present: other (Trachea is in midline). Absent: tenderness, meningismus Respiratory exam: Present: normal lung sounds bilaterally. Absent: respiratory distress, wheezes, rales, rhonchi, stridor Cardiovascular Exam: Present: normal rhythm, tachycardia, normal heart sounds, other (Normal radial pulses bilaterally) GI/Abdominal exam: Present: soft. Absent: distended, tenderness, guarding Extremities exam: Absent: tenderness, pedal edema Neurological exam: Present: alert, oriented X3, CN II-XII intact. Absent: motor sensory deficit Psychiatric exam: Present: other (Restless) Skin exam: Present: warm, dry, intact, normal color <Xander Dwyer - Last Filed: 08/26/20 22:56> Course <Xander Dwyer - Last Filed: 08/26/20 22:56> Vital Signs 08/26/20 08/26/20 17:55 23:30 Temperature 98.2 F 98.6 F Pulse Rate 120 H 106 H Respiratory 18 18 Rate Blood Pressure 147/94 132/87 O2 Sat by Pulse 96 97 Oximetry - Reevaluation(s) Reevaluation #1: 08/26/20 22:56 Patient was endorsed to Dr. Martinez (secondary to end of my shift) with the EPS nurse evaluation and possible psychiatric placement still pending. Dr. Martinez to take over care of the patient at this time. (Xander Dwyer) Medical Decision Making - Lab Data Lab Results 08/26/20 Range/Units 18:29 Urine Opiates Screen Not Detected (NotDetected) Ur Oxycodone Screen Not Detected (NotDetected) Urine Methadone Screen Not Detected (NotDetected) Ur Propoxyphene Screen Not Detected (NotDetected) Ur Barbiturates Screen Not Detected (NotDetected) U Tricyclic Antidepress Not Detected (NotDetected) Ur Phencyclidine Scrn Not Detected (NotDetected) Ur Amphetamines Screen Not Detected (NotDetected) U Methamphetamines Scrn Detected H (NotDetected) U Benzodiazepines Scrn Not Detected (NotDetected) Urine Cocaine Screen Detected H (NotDetected) U Marijuana (THC) Screen Detected H (NotDetected) Disposition <Xander Dwyer - Last Filed: 08/26/20 22:56> Is patient prescribed a controlled substance at d/c from ED?: No <Khoa Martinez - Last Filed: 08/27/20 01:09> Clinical Impression: Hallucinations, Schizophrenia, Polysubstance abuse Disposition: HOME SELF-CARE Condition: Good Referrals: [facility] [Primary Care Provider] - 1-2 days
[2020-08-26 18:45] LABS: Amphetamine Screen,Urine Not Detected (NotDetected); Barbiturate Screen,Urine Not Detected (NotDetected); Benzodiazepines Screen,Urine Not Detected (NotDetected); Cocaine Screen,Urine Detected (NotDetected); Methadone Screen, Urine Not Detected (NotDetected); Opiate Screen,Urine Not Detected (NotDetected); Oxycodone Screen, Urine Not Detected (NotDetected); Phencyclidine Screen,Urine Not Detected (NotDetected); Tricyclic Antidepressant,Urine Not Detected (NotDetected); Urn Cannabinoid Scrn Detected (NotDetected)
[2020-08-27 00:25] VITALS: BP 132/87; PULSE 106; TEMP 98.6
== END 2020-08-27 01:30 | disposition home or self-care (01) ==
LOC: EC 17:52
DX: F20.9 Schizophrenia, unspecified (principal); F19.10 Other psychoactive substance abuse, uncomplicated; R00.0 Tachycardia, unspecified; F17.200 Nicotine dependence, unspecified, uncomplicated; F41.9 Anxiety disorder, unspecified; F31.9 Bipolar disorder, unspecified; Z88.8 Allergy status to other drugs, medicaments and biological substances; Z91.048 Other nonmedicinal substance allergy status; Z79.899 Other long term (current) drug therapy
CPT/HCPCS: 80306; 82075; 99285

== ENCOUNTER 2021-01-25 16:49 | Emergency (ER) | payer MEDICARE ==
[2021-01-25 16:58] VITALS: RESP 18
[2021-01-25] MEDS ORDERED: SODIUM CHLORIDE 0.9% 500 ML 500 ML IV STA (17:27)
--- NOTE | 2021-01-25 17:46 | ED ---
General Adult HPI - General Chief complaint: Recheck/Abnormal Lab/Rx Stated complaint: Rectal Bleeding Time Seen by Provider: 01/25/21 17:23 Source: patient, RN notes reviewed, old records reviewed Mode of arrival: ambulatory Limitations: no limitations - History of Present Illness Initial comments: 45-year-old male presenting for evaluation of rectal bleeding and hematuria. Patient does have schizophrenia, the history is somewhat unclear he states he's had ongoing symptoms for many months. He denies chest pain. Does report intermittent abdominal pain but currently doesn't have any previous had intermittent vomiting over many months as well states that he had previously vomited up he thought was tumor. Patient is not suicidal or homicidal. He does admit to monthly Haldol injections with [facility]. - Related Data Home Medications Medication Instructions Recorded Confirmed Sertraline HCl [Zoloft] 100 mg PO DAILY 08/26/20 01/25/21 Haloperidol Decanoate [Haldol D] 100 mg IM Q14D 01/25/21 01/25/21 Methimazole [Tapazole] 5 mg PO Q8H 01/25/21 01/25/21 lamoTRIgine [LaMICtal] 100 mg PO DAILY 01/25/21 01/25/21 Previous Rx's Medication Instructions Recorded Omeprazole [PriLOSEC] 40 mg PO DAILY 30 Days cap 06/29/20 Allergies Allergy/AdvReac Type Severity Reaction Status Date / Time cat dander Allergy Itching Verified 01/25/21 18:44 fluphenazine [From Prolixin] AdvReac seizures Verified 01/25/21 18:44 oxcarbazepine AdvReac seizures Verified 01/25/21 18:44 [From Trileptal] paliperidone [From Invega] AdvReac delusional Verified 01/25/21 18:44 risperidone [From Risperdal] AdvReac seizures Verified 01/25/21 18:44 Review of Systems ROS Statement: Those systems with pertinent positive or pertinent negative responses have been documented in the HPI. ROS Other: All systems not noted in ROS Statement are negative. Past Medical History Past Medical History: GERD/Reflux, Musculoskeletal Disorder, Seizure Disorder Additional Past Medical History / Comment(s): scoliosis, herpes, hiatal hernia, migraines, History of Any Multi-Drug Resistant Organisms: None Reported Past Surgical History: No Surgical Hx Reported Additional Past Surgical History / Comment(s): EGD about 10 years ago, Past Anesthesia/Blood Transfusion Reactions: No Reported Reaction Past Psychological History: Anxiety, Bipolar, Depression, Schizoaffective Disorder Smoking Status: Current every day smoker Past Alcohol Use History: Rare Past Drug Use History: Cocaine, Marijuana, Methamphetamine - Past Family History Mother History Unknown: Yes Additional Family Medical History / Comment(s): from suicide attempt Father History Unknown: Yes Additional Family Medical History / Comment(s): Reports that he is currently in the stages of dying- but wont clarify further. Inititally the patient stated his father was . General Exam Limitations: no limitations General appearance: alert, in no apparent distress Head exam: Present: atraumatic, normocephalic Eye exam: Present: normal appearance, PERRL ENT exam: Present: normal exam Neck exam: Present: normal inspection. Absent: tenderness, meningismus Respiratory exam: Present: normal lung sounds bilaterally. Absent: respiratory distress Cardiovascular Exam: Present: regular rate, normal rhythm GI/Abdominal exam: Present: soft. Absent: distended, tenderness, guarding, rebound Rectal exam: Present: normal inspection, normal rectal tone. Absent: black stool, bloody stool, hemorrhoids Extremities exam: Present: normal inspection, normal capillary refill. Absent: pedal edema, calf tenderness Neurological exam: Present: alert, oriented X3, CN II-XII intact. Absent: motor sensory deficit Psychiatric exam: Present: flat affect, other. Absent: homicidal ideation, suicidal ideation Skin exam: Present: warm, dry, intact Course Vital Signs 01/25/21 01/25/21 16:53 19:24 Temperature 98 F 98.8 F Pulse Rate 105 H 94 Respiratory 18 18 Rate Blood Pressure 122/81 120/61 O2 Sat by Pulse 94 L 96 Oximetry Medical Decision Making - Medical Decision Making 29 sexual male with chief complaint of rectal bleeding and hematuria. Patient has no active bleeding on exam, no hemorrhoid. He states he had one episode of rectal bleeding. He is a poor historian. Vital signs are stable. Hemoglobin 12 6 which is somewhat down from prior. He has plans to start drug rehabilitation tomorrow. He does have follow-up with gastroenterology as well and was scheduled for colonoscopy. He is eager for discharge. He is given strict return parameters and will monitor for more bleeding. He will plan for rehabilitation tomorrow. - Lab Data Result diagrams: 01/25/21 17:53 01/25/21 17:53 Lab Results 01/25/21 01/25/21 01/25/21 Range/Units 17:53 17:53 17:53 WBC 8.2 (3.8-10.6) k/uL RBC 4.30 (4.30-5.90) m/uL Hgb 12.6 L (13.0-17.5) gm/dL Hct 37.7 L (39.0-53.0) % MCV 87.5 (80.0-100.0) fL MCH 29.3 (25.0-35.0) pg MCHC 33.5 (31.0-37.0) g/dL RDW 15.3 (11.5-15.5) % Plt Count 255 (150-450) k/uL MPV 6.8 Neutrophils % 70 % Lymphocytes % 17 % Monocytes % 7 % Eosinophils % 3 % Basophils % 1 % Neutrophils # 5.8 (1.3-7.7) k/uL Lymphocytes # 1.4 (1.0-4.8) k/uL Monocytes # 0.6 (0-1.0) k/uL Eosinophils # 0.3 (0-0.7) k/uL Basophils # 0.1 (0-0.2) k/uL APTT 24.5 (22.0-30.0) sec Sodium 140 (137-145) mmol/L Potassium 3.7 (3.5-5.1) mmol/L Chloride 104 (98-107) mmol/L Carbon Dioxide 24 (22-30) mmol/L Anion Gap 12 mmol/L BUN 13 (9-20) mg/dL Creatinine 1.17 (0.66-1.25) mg/dL Est GFR (CKD-EPI)AfAm 86 (>60 ml/min/1.73 sqM) Est GFR (CKD-EPI)NonAf 74 (>60 ml/min/1.73 sqM) Glucose 156 H (74-99) mg/dL Calcium 9.7 (8.4-10.2) mg/dL Magnesium 2.1 (1.6-2.3) mg/dL Total Bilirubin 0.2 (0.2-1.3) mg/dL AST 69 H (17-59) U/L ALT 163 H (4-49) U/L Alkaline Phosphatase 122 (38-126) U/L Total Protein 6.8 (6.3-8.2) g/dL Albumin 4.2 (3.5-5.0) g/dL Lipase 235 (23-300) U/L Urine Color Urine Appearance (Clear) Urine pH (5.0-8.0) Ur Specific [place] (1.001-1.035) Urine Protein (Negative) Urine Glucose (UA) (Negative) Urine Ketones (Negative) Urine Blood (Negative) Urine Nitrite (Negative) Urine Bilirubin (Negative) Urine Urobilinogen (<2.0) mg/dL Ur Leukocyte Esterase (Negative) Urine RBC (0-5) /hpf Urine WBC (0-5) /hpf Ur Squamous Epith Cells (0-4) /hpf Urine Bacteria (None) /hpf Hyaline Casts (0-2) /lpf Urine Mucus (None) /hpf Urine Opiates Screen (NotDetected) Ur Oxycodone Screen (NotDetected) Urine Methadone Screen (NotDetected) Ur Propoxyphene Screen (NotDetected) Ur Barbiturates Screen (NotDetected) U Tricyclic Antidepress (NotDetected) Ur Phencyclidine Scrn (NotDetected) Ur Amphetamines Screen (NotDetected) U Methamphetamines Scrn (NotDetected) U Benzodiazepines Scrn (NotDetected) Urine Cocaine Screen (NotDetected) U Marijuana (THC) Screen (NotDetected) 01/25/21 Range/Units 17:53 WBC (3.8-10.6) k/uL RBC (4.30-5.90) m/uL Hgb (13.0-17.5) gm/dL Hct (39.0-53.0) % MCV (80.0-100.0) fL MCH (25.0-35.0) pg MCHC (31.0-37.0) g/dL RDW (11.5-15.5) % Plt Count (150-450) k/uL MPV Neutrophils % % Lymphocytes % % Monocytes % % Eosinophils % % Basophils % % Neutrophils # (1.3-7.7) k/uL Lymphocytes # (1.0-4.8) k/uL Monocytes # (0-1.0) k/uL Eosinophils # (0-0.7) k/uL Basophils # (0-0.2) k/uL APTT (22.0-30.0) sec Sodium (137-145) mmol/L Potassium (3.5-5.1) mmol/L Chloride (98-107) mmol/L Carbon Dioxide (22-30) mmol/L Anion Gap mmol/L BUN (9-20) mg/dL Creatinine (0.66-1.25) mg/dL Est GFR (CKD-EPI)AfAm (>60 ml/min/1.73 sqM) Est GFR (CKD-EPI)NonAf (>60 ml/min/1.73 sqM) Glucose (74-99) mg/dL Calcium (8.4-10.2) mg/dL Magnesium (1.6-2.3) mg/dL Total Bilirubin (0.2-1.3) mg/dL AST (17-59) U/L ALT (4-49) U/L Alkaline Phosphatase (38-126) U/L Total Protein (6.3-8.2) g/dL Albumin (3.5-5.0) g/dL Lipase (23-300) U/L Urine Color Yellow Urine Appearance Clear (Clear) Urine pH 6.5 (5.0-8.0) Ur Specific [place] 1.023 (1.001-1.035) Urine Protein 1+ H (Negative) Urine Glucose (UA) Negative (Negative) Urine Ketones Trace H (Negative) Urine Blood Negative (Negative) Urine Nitrite Negative (Negative) Urine Bilirubin Negative (Negative) Urine Urobilinogen 3.0 (<2.0) mg/dL Ur Leukocyte Esterase Trace H (Negative) Urine RBC 1 (0-5) /hpf Urine WBC 3 (0-5) /hpf Ur Squamous Epith Cells <1 (0-4) /hpf Urine Bacteria Moderate H (None) /hpf Hyaline Casts 50 H (0-2) /lpf Urine Mucus Few H (None) /hpf Urine Opiates Screen Not Detected (NotDetected) Ur Oxycodone Screen Not Detected (NotDetected) Urine Methadone Screen Not Detected (NotDetected) Ur Propoxyphene Screen Not Detected (NotDetected) Ur Barbiturates Screen Not Detected (NotDetected) U Tricyclic Antidepress Not Detected (NotDetected) Ur Phencyclidine Scrn Not Detected (NotDetected) Ur Amphetamines Screen Detected H (NotDetected) U Methamphetamines Scrn Detected H (NotDetected) U Benzodiazepines Scrn Not Detected (NotDetected) Urine Cocaine Screen Not Detected (NotDetected) U Marijuana (THC) Screen Detected H (NotDetected) Disposition Clinical Impression: Amphetamine abuse, episodic, Rectal bleeding Disposition: HOME SELF-CARE Condition: Fair Instructions (If sedation given, give patient instructions): Rectal Bleeding (ED) Is patient prescribed a controlled substance at d/c from ED?: No Referrals: None,Stated [Primary Care Provider] - 1-2 days Guilherme Schroeder MD [STAFF PHYSICIAN] - 1-2 days Farhan Martinez MD [REFERRING] - 1-2 days Time of Disposition: 19:48
[2021-01-25 18:02] LABS: Basophils # (A) 0.1 k/uL (0-0.2); Basophils % (A) 1 %; Eosinophils # (A) 0.3 k/uL (0-0.7); Eosinophils % (A) 3 %; HCT 37.7 % (39.0-53.0); HGB 12.6 gm/dL (13.0-17.5); Lymphocytes # (A) 1.4 k/uL (1.0-4.8); Lymphocytes % (A) 17 %; MCH 29.3 pg (25.0-35.0); MCHC 33.5 g/dL (31.0-37.0); MCV 87.5 fL (80.0-100.0); Mean Platelet Volume 6.8; Monocytes # (A) 0.6 k/uL (0-1.0); Monocytes % (A) 7 %; Neutrophils # (A) 5.8 k/uL (1.3-7.7); Neutrophils % (A) 70 %; Platelet Count 255 k/uL (150-450); RDW 15.3 % (11.5-15.5); WBC 8.2 k/uL (3.8-10.6)
[2021-01-25 18:12] LABS: Albumin 4.2 g/dL (3.5-5.0); Calcium 9.7 mg/dL (8.4-10.2); Magnesium 2.1 mg/dL (1.6-2.3); Potassium 3.7 mmol/L (3.5-5.1); Total Bilirubin 0.2 mg/dL (0.2-1.3); Total Protein 6.8 g/dL (6.3-8.2)
[2021-01-25 18:42] LABS: Appearance,Urine Clear (Clear); Bacteria,Urine Moderate /hpf; Bilirubin,Urine Negative (Negative); Blood,Urine Negative (Negative); Color,Urine Yellow; Glucose,Urine (UA) Negative (Negative); Hyaline Casts,Urine 50 /lpf (0-2); Ketones,Urine Trace (Negative); Leukocyte Esterase,Urine Trace (Negative); Mucus,Urine Few /hpf; Nitrite,Urine Negative (Negative); PH, Urine 6.5 (5.0-8.0); Protein,Urine 1+ (Negative); RBC,Urine 1 /hpf (0-5); Specific Gravity,Urine 1.023 (1.001-1.035); Squamous Epithelial Cell,Urine <1 /hpf (0-4); WBC,Urine 3 /hpf (0-5)
[2021-01-25 18:52] LABS: Amphetamine Screen,Urine Detected (NotDetected); Barbiturate Screen,Urine Not Detected (NotDetected); Benzodiazepines Screen,Urine Not Detected (NotDetected); Cocaine Screen,Urine Not Detected (NotDetected); Methadone Screen, Urine Not Detected (NotDetected); Opiate Screen,Urine Not Detected (NotDetected); Oxycodone Screen, Urine Not Detected (NotDetected); Phencyclidine Screen,Urine Not Detected (NotDetected); Tricyclic Antidepressant,Urine Not Detected (NotDetected); Urn Cannabinoid Scrn Detected (NotDetected)
[2021-01-25 19:25] VITALS: BP 120/61; PULSE 94; TEMP 98.8
== END 2021-01-25 19:56 | disposition home or self-care (01) ==
LOC: EC 16:49
DX: K62.5 Hemorrhage of anus and rectum (principal); F15.10 Other stimulant abuse, uncomplicated; K21.9 Gastro-esophageal reflux disease without esophagitis; G40.909 Epilepsy, unspecified, not intractable, without status epilepticus; F20.9 Schizophrenia, unspecified; F17.200 Nicotine dependence, unspecified, uncomplicated
CPT/HCPCS: 36415; 80053; 80306; 81001; 83690; 83735; 85025; 85730

== ENCOUNTER 2021-01-26 19:35 | Inpatient (IN) | payer MEDICARE, MEDICAID ==
[2021-01-26 20:39] LABS: Basophils # (A) 0.1 k/uL (0-0.2); Basophils % (A) 1 %; Eosinophils # (A) 0.3 k/uL (0-0.7); Eosinophils % (A) 4 %; HCT 37.5 % (39.0-53.0); HGB 12.6 gm/dL (13.0-17.5); Lymphocytes # (A) 1.5 k/uL (1.0-4.8); Lymphocytes % (A) 17 %; MCH 29.2 pg (25.0-35.0); MCHC 33.5 g/dL (31.0-37.0); MCV 87.2 fL (80.0-100.0); Mean Platelet Volume 6.7; Monocytes # (A) 0.7 k/uL (0-1.0); Monocytes % (A) 9 %; Neutrophils # (A) 5.7 k/uL (1.3-7.7); Neutrophils % (A) 68 %; Platelet Count 253 k/uL (150-450); RDW 15.4 % (11.5-15.5); WBC 8.4 k/uL (3.8-10.6)
[2021-01-26 20:51] LABS: Acetaminophen <10.0 ug/mL; African American GFR (CKD) >90 (>60 ml/min/1.73 sqM); Anion Gap 5 mmol/L; Blood Urea Nitrogen 13 mg/dL (9-20); Carbon Dioxide 25 mmol/L (22-30); Chloride 111 mmol/L (98-107); Glucose 96 mg/dL (74-99); Non-African American GFR(CKD) >90 (>60 ml/min/1.73 sqM); Potassium 4.3 mmol/L (3.5-5.1); Salicylate <1.0 mg/dL; Sodium 141 mmol/L (137-145)
--- NOTE | 2021-01-26 21:06 | XR ---
EXAMINATION: XR chest 1V portable DATE AND TIME: 01/26/2021 8:47 PM CLINICAL INDICATION: PHH; CHest pain TECHNIQUE: AP portable upright COMPARISON: 10/25/2019 FINDINGS: The lungs appear similar to the prior study, clear and well-expanded bilaterally. The pleural spaces are negative. The cardiac silhouette is not enlarged. The remainder of the mediastinal silhouette is unremarkable. The skeletal structures and soft tissues are negative for acute findings. IMPRESSION: NO ACUTE PROCESS.
--- NOTE | 2021-01-26 22:11 | ED ---
Psych HPI - General Source: police Mode of arrival: ambulatory <Isidor Tim - Last Filed: 01/26/21 22:19> <Khoa Martinez - Last Filed: 01/27/21 07:20> - General Chief Complaint: Psychiatric Symptoms Stated Complaint: Mental health Time Seen by Provider: 01/26/21 19:49 - History of Present Illness Initial Comments: Is a 45-year-old male who has a history of schizophrenia on Haldol injections and also a history of methamphetamine abuse who presents emergency department for noncompliance. Apparently the patient was supposed to go to rehab today for his drug abuse and refused to go. EMS and PD picked him up and brought him here for involuntary psychiatric treatment. The patient states that he is here because he is been having some bloody stools and also some mild chest discomfort. The patient was seen here yesterday with similar complaints and had a fairly normal workup. A rectal exam done at that time that was unremarkable. He somewhat of a poor historian and does not exactly know why he is here however does state that he thinks is here because the mental health wants him to go to rehab. He otherwise denies any suicidal or homicidal ideation. No other complaints. (Isidro Tim) - Related Data Home Medications Medication Instructions Recorded Confirmed Sertraline HCl [Zoloft] 100 mg PO DAILY 08/26/20 01/26/21 Haloperidol Decanoate [Haldol D] 100 mg IM Q14D 01/25/21 01/26/21 Methimazole [Tapazole] 5 mg PO Q8H 01/25/21 01/26/21 lamoTRIgine [LaMICtal] 100 mg PO DAILY 01/25/21 01/26/21 Previous Rx's Medication Instructions Recorded Omeprazole [PriLOSEC] 40 mg PO DAILY 30 Days cap 06/29/20 Allergies Allergy/AdvReac Type Severity Reaction Status Date / Time cat dander Allergy Itching Verified 01/26/21 20:03 fluphenazine [From Prolixin] AdvReac seizures Verified 01/26/21 20:03 oxcarbazepine AdvReac seizures Verified 01/26/21 20:03 [From Trileptal] paliperidone [From Invega] AdvReac delusional Verified 01/26/21 20:03 risperidone [From Risperdal] AdvReac seizures Verified 01/26/21 20:03 Review of Systems ROS Other: All systems not noted in ROS Statement are negative. <Isidro Tim - Last Filed: 01/26/21 22:19> ROS Other: All systems not noted in ROS Statement are negative. <Khoa Martinez - Last Filed: 01/27/21 07:20> ROS Statement: Those systems with pertinent positive or pertinent negative responses have been documented in the HPI. Past Medical History Past Medical History: GERD/Reflux, Musculoskeletal Disorder, Seizure Disorder Additional Past Medical History / Comment(s): scoliosis, herpes, hiatal hernia, migraines, History of Any Multi-Drug Resistant Organisms: None Reported Past Surgical History: No Surgical Hx Reported Additional Past Surgical History / Comment(s): EGD about 10 years ago, Past Anesthesia/Blood Transfusion Reactions: No Reported Reaction Past Psychological History: Anxiety, Bipolar, Depression, Schizoaffective Disorder Smoking Status: Current every day smoker Past Alcohol Use History: Rare Past Drug Use History: Cocaine, Marijuana, Methamphetamine - Past Family History Mother History Unknown: Yes Additional Family Medical History / Comment(s): from suicide attempt Father History Unknown: Yes Additional Family Medical History / Comment(s): Reports that he is currently in the stages of dying- but wont clarify further. Inititally the patient stated his father was . <Isidro Tim - Last Filed: 01/26/21 22:19> General Exam Limitations: altered mental status <Isidro Tim - Last Filed: 01/26/21 22:19> - General Exam Comments Initial Comments: Constitutional: Awake alert Appears comfortable Head: Normocephalic atraumatic Eyes: no conjunctival injection No scleral icterus EOMI Neck: No JVD Supple Heart: Regular rate rhythm normal S1-S2 no murmurs Lungs: Clear to auscultation bilaterally No wheezing No rales Abdomen: Soft nondistended nontender Extremities: Non edematous DP pulses intact Radial pulses intact Neuro: A&Ox3 No focal neurologic deficits Psych: Patient seems slightly agitated and is little hyperactive constantly scratching at his skin (Isidro Tim) Course <Isidro Tim - Last Filed: 01/26/21 22:19> Vital Signs 01/26/21 01/26/21 19:39 23:03 Temperature 97.3 F L Pulse Rate 83 Respiratory 18 18 Rate Blood Pressure 122/83 O2 Sat by Pulse 98 Oximetry - Reevaluation(s) Reevaluation #1: EKG showing normal sinus rhythm with a rate of 74. No abnormal ST segment changes or T-wave inversions. QTC is 421. Other intervals normal. No ectopy. 01/26/21 22:11 (Isidro Tim) Reevaluation #2: 01/26/21 22:20 Pt medically cleared (Isidro Tim) Medical Decision Making - Lab Data Result diagrams: 01/26/21 20:32 01/26/21 20:32 <Isidro Tim - Last Filed: 01/26/21 22:19> - Lab Data Result diagrams: 01/26/21 20:32 01/26/21 20:32 <Khoa Martinez - Last Filed: 01/27/21 07:20> - Medical Decision Making I did see the patient and completed the clinical certificate. (Khoa Martinez) - Lab Data Lab Results 01/26/21 01/26/21 Range/Units 20:32 20:32 WBC 8.4 (3.8-10.6) k/uL RBC 4.30 (4.30-5.90) m/uL Hgb 12.6 L (13.0-17.5) gm/dL Hct 37.5 L (39.0-53.0) % MCV 87.2 (80.0-100.0) fL MCH 29.2 (25.0-35.0) pg MCHC 33.5 (31.0-37.0) g/dL RDW 15.4 (11.5-15.5) % Plt Count 253 (150-450) k/uL MPV 6.7 Neutrophils % 68 % Lymphocytes % 17 % Monocytes % 9 % Eosinophils % 4 % Basophils % 1 % Neutrophils # 5.7 (1.3-7.7) k/uL Lymphocytes # 1.5 (1.0-4.8) k/uL Monocytes # 0.7 (0-1.0) k/uL Eosinophils # 0.3 (0-0.7) k/uL Basophils # 0.1 (0-0.2) k/uL Sodium 141 (137-145) mmol/L Potassium 4.3 (3.5-5.1) mmol/L Chloride 111 H (98-107) mmol/L Carbon Dioxide 25 (22-30) mmol/L Anion Gap 5 mmol/L BUN 13 (9-20) mg/dL Creatinine 0.78 (0.66-1.25) mg/dL Est GFR (CKD-EPI)AfAm >90 (>60 ml/min/1.73 sqM) Est GFR (CKD-EPI)NonAf >90 (>60 ml/min/1.73 sqM) Glucose 96 (74-99) mg/dL Calcium 9.0 (8.4-10.2) mg/dL Salicylates <1.0 mg/dL Acetaminophen <10.0 ug/mL Disposition <Isidro Tim - Last Filed: 01/26/21 22:19> <Khoa Martinez - Last Filed: 01/27/21 07:20> Clinical Impression: Chronic schizophrenia Disposition: ADMITTED IP TO THIS HOSP Condition: Fair
[2021-01-27] MEDS ORDERED: LORazepam 2 MG/ML INJ IM PRN (01:04)
--- NOTE | 2021-01-27 03:00 | P.PN ---
Progress Note - Text Progress Note Date: 01/27/21 new consult , patient sleeping at this time
[2021-01-27] MEDS ORDERED: ACETAMINOPHEN TAB 325 MG TAB PO PRN (04:00)
[2021-01-27] MEDS ORDERED: HALOPERIDOL LACTATE 5 MG/ML 1 ML VIAL IM PRN (06:00)
[2021-01-27 07:34] LABS: ALT 130 U/L (4-49); AST 50 U/L (17-59); African American GFR (CKD) >90 (>60 ml/min/1.73 sqM); Albumin 3.9 g/dL (3.5-5.0); Alkaline Phosphatase 142 U/L (38-126); Anion Gap 4 mmol/L; Blood Urea Nitrogen 14 mg/dL (9-20); Calcium 8.8 mg/dL (8.4-10.2); Carbon Dioxide 25 mmol/L (22-30); Chloride 114 mmol/L (98-107); Glucose 99 mg/dL (74-99); Non-African American GFR(CKD) >90 (>60 ml/min/1.73 sqM); Potassium 4.6 mmol/L (3.5-5.1); Sodium 143 mmol/L (137-145); Total Bilirubin 0.3 mg/dL (0.2-1.3); Total Protein 6.7 g/dL (6.3-8.2)
[2021-01-27] MEDS: lamoTRIgine 25 MG TAB PO SCH ×2 (08:51→20:18)
[2021-01-27] MEDS: SERTRALINE 50 MG TAB PO SCH (08:51)
[2021-01-27] MEDS: NICOTINE 21MG/24HR PATCH TRANSDERM SCH (08:51)
[2021-01-27] MEDS ORDERED: MAGNESIUM HYDROXIDE 2,400 MG/10 ML CUP PO PRN (09:00)
--- NOTE | 2021-01-27 12:13 | P.HP ---
Psychiatric H&P - . H&P Date: 01/27/21 History & Physical: Allergies Allergy/AdvReac Type Severity Reaction Status Date / Time cat dander Allergy Itching Verified 01/26/21 20:03 fluphenazine From Prolixin AdvReac seizures Verified 01/26/21 20:03 oxcarbazepine AdvReac seizures Verified 01/26/21 20:03 From Trileptal paliperidone From Invega AdvReac delusional Verified 01/26/21 20:03 risperidone From Risperdal AdvReac seizures Verified 01/26/21 20:03 Vital Signs Temp 98.1 F 01/27/21 09:28 Pulse 79 01/27/21 02:32 Resp 18 01/27/21 02:32 BP 128/89 01/27/21 02:32 Pulse Ox 92 L 01/27/21 02:32 Intake & Output 01/26/21 01/27/21 01/27/21 18:59 06:59 18:59 Weight 68.946 kg Laboratory Last Values WBC 8.4 k/uL (3.8-10.6) 01/26/21 20:32 RBC 4.30 m/uL (4.30-5.90) 01/26/21 20:32 Hgb 12.6 gm/dL (13.0-17.5) L 01/26/21 20:32 Hct 37.5 % (39.0-53.0) L 01/26/21 20:32 MCV 87.2 fL (80.0-100.0) 01/26/21 20:32 MCH 29.2 pg (25.0-35.0) 01/26/21 20:32 MCHC 33.5 g/dL (31.0-37.0) 01/26/21 20:32 RDW 15.4 % (11.5-15.5) 01/26/21 20:32 Plt Count 253 k/uL (150-450) 01/26/21 20:32 MPV 6.7 01/26/21 20:32 Neutrophils % 68 % 01/26/21 20:32 Lymphocytes % 17 % 01/26/21 20:32 Monocytes % 9 % 01/26/21 20:32 Eosinophils % 4 % 01/26/21 20:32 Basophils % 1 % 01/26/21 20:32 Neutrophils # 5.7 k/uL (1.3-7.7) 01/26/21 20:32 Lymphocytes # 1.5 k/uL (1.0-4.8) 01/26/21 20:32 Monocytes # 0.7 k/uL (0-1.0) 01/26/21 20:32 Eosinophils # 0.3 k/uL (0-0.7) 01/26/21 20:32 Basophils # 0.1 k/uL (0-0.2) 01/26/21 20:32 Sodium 143 mmol/L (137-145) 01/27/21 07:11 Potassium 4.6 mmol/L (3.5-5.1) 01/27/21 07:11 Chloride 114 mmol/L (98-107) H 01/27/21 07:11 Carbon Dioxide 25 mmol/L (22-30) 01/27/21 07:11 Anion Gap 4 mmol/L 01/27/21 07:11 BUN 14 mg/dL (9-20) 01/27/21 07:11 Creatinine 0.78 mg/dL (0.66-1.25) 01/27/21 07:11 Est GFR (CKD-EPI)AfAm >90 (>60 ml/min/1.73 sqM) 01/27/21 07:11 Est GFR (CKD-EPI)NonAf >90 (>60 ml/min/1.73 sqM) 01/27/21 07:11 Glucose 99 mg/dL (74-99) 01/27/21 07:11 Calcium 8.8 mg/dL (8.4-10.2) 01/27/21 07:11 Total Bilirubin 0.3 mg/dL (0.2-1.3) 01/27/21 07:11 AST 50 U/L (17-59) 01/27/21 07:11 ALT 130 U/L (4-49) H 01/27/21 07:11 Alkaline Phosphatase 142 U/L (38-126) H 01/27/21 07:11 Total Protein 6.7 g/dL (6.3-8.2) 01/27/21 07:11 Albumin 3.9 g/dL (3.5-5.0) 01/27/21 07:11 TSH 0.759 mIU/L (0.465-4.680) 01/27/21 07:11 Salicylates <1.0 mg/dL 01/26/21 20:32 Acetaminophen <10.0 ug/mL 01/26/21 20:32 Coronavirus (PCR) Not Detected (Not Detectd) 01/27/21 00:53 01/27/21 11:42 IDENTIFYING DATA: Patient is a 45-year-old male with significant history of schizophrenia, depression, and anxiety with a history of multiple inpatient psychiatric hospitalizations admitted on a court order. HPI: Patient presented to the hospital yesterday on a pickup order escorted by the police. Patient apparently is on a active treatment order which expires 05/15/2021. Patient has a chronic history of schizophrenia polysubstance abuse and is currently on Haldol D IM 100 mg injections every 2 weeks and being followed by [facility]. Patient also has a history of methamphetamine abuse. Patient was seen lying in his bed today and refused to get up out of bed. He appears to be disheveled in appearance and was fairly irritable and agitated with technical writer. He was a poor historian of what happened. He states that "they brought me in here because they thought I wasn't taking meds but actually was now I will not". He claims that the medications he is receiving is "slowly killing me" and was endorsing very poor insight and judgment. He had poor impulse control during the interview. He was fairly inappropriate with technical writer. He spoke vaguely about using methamphetamine however refused to give urine for the urine drug screen. He claims that "you may have my wish and I may " and mentioned other bizarre comments to technical writer. He refused to sign for medications. He states his sleep is poor and appetite is poor. He is currently denying any auditory or visual hallucinations or any active suicidal or homicidal ideations intent or plan. PAST PSYCHIATRIC HISTORY: Patient has a diagnosis of schizophrenia, depression, and anxiety. He also engages in polysubstance use including marijuana and me thamphetamines. He has had multiple trials of medications including Haldol, Invega, Risperdal, Prolixin, and Trileptal. He has had multiple inpatient psychiatric admissions. His last admission was in June 2020. He reports one prior attempt at suicide in the past but refuses to elaborate. Current prescribed medications include Haldol Decanoate 100 mg IM every 2 weeks, with the next administration due on along with Lamictal 100 mg daily and Zoloft 100 mg daily. PMH: COPD, GERD, seizure disorder, migraines ALLERGIES: as per EMR CHEMICAL DEPENDENCY HISTORY: Patient has a history of polysubstance abuse including methamphetamine and also smokes cigarettes. FAMILY PSYCHIATRIC/SUBSTANCE USE HISTORY: Patient reports multiple family members with mental illness but is unable to elaborate. SOCIAL HISTORY: Patient was born and raised in [place]. He reports that both his parents are . 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 He is currently receiving Social Security disability. He was never . MENTAL STATUS EXAM: General Appearance: Patient appears to be stated age is alert, uncooperative and difficult to redirect. Patient appears to have poor hygiene and grooming. Disheveled appearance. Behavior: Patient is laying in bed without any agitated behavior. Restless. Speech: Patient's speech is spontaneous, normal in volume, nonpressured. Mood/Affect: Patient reports their mood is "not good", affect is irritable. Suicidality/Homicidality: Patient denies having any homicidal ideation intent or plan. Denies any suicidal ideations intent or plan Perceptions: Patient denies any visual hallucinations and denies any auditory hallucinations Though content/process: Patient is bizarre, multiple delusions. Poor historian and guarded. Memory and concentration: AOX3, grossly intact for the purposes of this session. Unable to assess attention span as patient refuses to participate. Judgment and insight: Very poor STRENGTHS/WEAKNESSES: strength is that patient is resilient. Weakness is that patient has poor judgment and engages in significant polysubstance use INTELLECT: Average IMPRESSIONS: Schizoaffective disorder, bipolar type Methamphetamine abuse Cannabis use disorder Nicotine dependence PLAN: -Patient is admitted under an active court order for treatment to [facility] for stabilization of psychiatric symptoms and safety. Patient has not signed adult voluntary form and medication consent and is placed in patient's chart. Patient's court order is active until 05/15/2021. -Medications : Will start patient on Zoloft 50 mg daily for mood/anxiety. Started patient on Lamictal 25 mg twice a day for mood stabilization. Patient is currently on Haldol Decanoate 100 mg every 2 weeks with his next dose due on . -Ativan and Haldol PRN for agitation/aggression -Patient was counselled on substance abuse -Patient was informed of the risks, benefits and side effects of the medication and patient verbally consented to taking the medications. Patient signed med consent form and was placed in chart. -Internal Medicine consult to perform medical evaluation and physical. -NRT - nicotine patch -SW on board for discharge planning. Encourage patient to participate in groups to work on coping skills. 01/27/21 12:06
[2021-01-27 14:33] LABS: Hemoglobin A1C 5.5 % (4.0-6.0)
[2021-01-28 00:58] LABS: Chol/HDL Ratio 3.51; Cholesterol 179 mg/dL (0-200); LDL Cholesterol,Calculated 96.6 mg/dL (0.0-131.0)
[2021-01-28] MEDS: SERTRALINE 50 MG TAB PO SCH (08:19)
[2021-01-28] MEDS: lamoTRIgine 25 MG TAB PO SCH ×2 (08:19→21:40)
[2021-01-28] MEDS: NICOTINE 21MG/24HR PATCH TRANSDERM SCH (08:21)
--- NOTE | 2021-01-28 13:15 | P.PN ---
Subjective Progress Note Date: 01/28/21 Principal diagnosis: Subjective: Patient was seen today as a cross coverage for Dr. Hughes. the patient was not cooperative and refused evaluation. He was lying on bed and covering his face with bed sheet, and refused to have eye contact. He was aggressive verbally with very irritated mood, stated "I don't want to talk to anybody". according to nursing staff, the patient continued to be angry, easily agitated, and isolating himself for most of the time. Patient has history of schizoaffective disorder and substance use disorder. He was admitted yesterday and is started on Zoloft, Lamictal, and he supposedly he is receiving Haldol Decanoate 100 mg every 2 weeks.No reports of aggressive behavior overnight. Objective: Vitals has been reviewed. Mental status examination: appearance: Patient refuses assessment, and he was lying on bed, covering his face with the bedsheet. Attitude and behavior: Not engaged, not cooperative, no eye contact. Motor activity: Psychomotor agitation. Speech: Loud, verbally aggressive. Mood: Irritated. Affect: Increased intensity. Thought form: Angry, coherent. Thought content: No report of suicidal or homicidal ideation or delusions, but anger and agitation. Perception: Patient was not cooperative but no reports of auditory or visual hallucinations today. Attention: Patient was responsive but refused assessment. Orientation: Patient was not cooperative with evaluation. Insight: Very limited about his psychiatric disorder. Judgment: Poor regarding need for treatment. Assessment: schizoaffective disorder, bipolar type. Methamphetamine use disorder, mild. Cannabis use disorder. Tobacco use disorder, moderate. Plan: Continue inpatient level of care due to need for further monitoring and stabilization Precautions: Continue 15 minutes check for safety. Consider medical consultation if any acute medical issues arise. Provide the patient individual, group therapy, substance use disorder counseling to give better insight and learn coping skills. Medications: Zoloft 50 mg daily for depression and anxiety. Lamictal 25 mg twice daily for mood stabilization. Patient supposedly receiving Haldol Decanoate 100 mg every 2 weeks and next dose 01/31/21. Continue as needed medications for psychiatric emergencies including psychosis, agitation and anxiety. Continue non-psychiatric medications for medical conditions as recommended by the medical team. Discharge patient to OUTPATIENT services upon a stabilization Objective - Vital Signs Vital signs: Vital Signs Temp 97.2 F L 01/28/21 06:57 Pulse 88 01/28/21 06:57 Resp 18 01/28/21 06:57 BP 137/83 01/28/21 06:57 Pulse Ox 92 L 01/27/21 02:32 Intake & Output 01/27/21 01/28/21 01/28/21 18:59 06:59 18:59 Weight 68.946 kg - Labs CBC & Chem 7: 01/26/21 20:32 01/27/21 07:11 Labs: Abnormal Lab Results - Last 24 Hours (Table) 01/27/21 Range/Units 07:11 Triglycerides 157.0 H (0.0-149.0) mg/dL
--- NOTE | 2021-01-28 23:03 | P.PN ---
Progress Note - Text Progress Note Date: 01/28/21 patient refused to see the medical doctor again
[2021-01-29] MEDS: lamoTRIgine 25 MG TAB PO SCH ×2 (11:23→21:42)
[2021-01-29] MEDS: NICOTINE 21MG/24HR PATCH TRANSDERM SCH (11:23)
[2021-01-29] MEDS: SERTRALINE 50 MG TAB PO SCH ×2 (11:24→16:40)
--- NOTE | 2021-01-29 13:23 | P.PN ---
Progress Note - Text Progress Note Date: 01/29/21 Subjective: Patient was seen today as a cross coverage for Dr. Hughes. patient continued to present the same, not cooperative and very agitated. He was able to talk for a short period today, but he became very agitated and refused to continue evaluation. He reports feeling terrible about being hospitalized and wants to get out of here. Denies any sleep or appetite problems. Reports feeling depressed because he is hospitalized. Patient was very superficial in his answers, but denies any suicidal or homicidal ideation, hallucinations, paranoid ideation, or delusions. Patient became very agitated when asking him about the medications and he continued to scream "I'm not suppose to take Haldol and Zoloft". Patient became very angry without any triggers and using profane language against doctors and the staff. He refused to continue evaluation and covered his face with a bed sheet. Objective: Vitals has been reviewed. Mental status examination: appearance: Patient refuses assessment, and he was lying on bed, covering his face with the bedsheet. Attitude and behavior: Not engaged, not cooperative, no eye contact. Motor activity: Psychomotor agitation. Speech: Loud, verbally aggressive. Mood: Irritated. Affect: Increased intensity. Thought form: Angry, coherent. Thought content: No report of suicidal or homicidal ideation or delusions, but anger and agitation. Perception: Patient was not cooperative but no reports of auditory or visual hallucinations today. Attention: Patient was responsive but refused assessment. Orientation: Patient was not cooperative with evaluation. Insight: Very limited about his psychiatric disorder. Judgment: Poor regarding need for treatment. Assessment: schizoaffective disorder, bipolar type. Methamphetamine use disorder, mild. Cannabis use disorder. Tobacco use disorder, moderate. Plan: Continue inpatient level of care due to need for further monitoring and stabilization Precautions: Continue 15 minutes check for safety. Consider medical consultation if any acute medical issues arise. Provide the patient individual, group therapy, substance use disorder counseling to give better insight and learn coping skills. Medications: Zoloft 50 mg daily for depression and anxiety. Lamictal 25 mg twice daily for mood stabilization. Patient supposedly receiving Haldol Decanoate 100 mg every 2 weeks and next dose 01/31/21. Continue as needed medications for psychiatric emergencies including psychosis, agitation and anxiety. Continue non-psychiatric medications for medical conditions as recommended by the medical team. Discharge patient to OUTPATIENT services upon a stabilization
[2021-01-29] MEDS: LORazepam 1 MG TAB PO PRN (16:41)
[2021-01-30] MEDS: SERTRALINE 50 MG TAB PO SCH (08:20)
[2021-01-30] MEDS: NICOTINE 21MG/24HR PATCH TRANSDERM SCH ×2 (08:20→14:41)
[2021-01-30] MEDS: lamoTRIgine 25 MG TAB PO SCH ×2 (08:20→21:00)
--- NOTE | 2021-01-30 09:47 | P.PN ---
Progress Note - Text Progress Note Date: 01/30/21 Interval History: Patient was seen laying in his bed this morning and was directable and agreeable to speak with board writer. patient refused to get out of his bed when speaking with board writer and was covering his face during most of the interview. Patient was mildly delusional today and was speaking about his lack of compliance with medications supposedly and that "I would've taken my medications but they brought me to the hospital instead". He continues to demonstrate fairly poor insight and judgment. She is denying any depression or anxiety today. He is not religiously preoccupied today and does not have racing thoughts. He states that he is able to sleep throughout the night fairly. At this time patient denies any suicidal or homical ideations, intent or plan. Patient denies any auditory, visual hallucinations. he claims that he has not been going to groups. Patient denies any side effects from the medications and has been compliant with meds. Mental Status Exam: General Appearance: Patient appears to be stated age is alert, guarded at times. Patient appears to have poor hygiene and grooming, improving mildly. Behavior: Patient is laying in bed without any agitated behavior. covering his face with his blankets. Speech: Patient's speech is spontaneous, normal in volume, nonpressured. Mood/Affect: Patient reports their mood is "ok", affect is less irritable. Suicidality/Homicidality: Patient denies having any homicidal ideation intent or plan. Denies any suicidal ideations intent or plan Perceptions: Patient denies any visual hallucinations and denies any auditory hallucinations Though content/process: Patient is bizarre, multiple delusions, improving mildly. Poor historian and guarded. Memory and concentration: AOX3, grossly intact for the purposes of this session. Judgment and insight: Very poor, improving mildly Assessment Schizoaffective disorder, bipolar type Methamphetamine abuse Cannabis use disorder Nicotine dependence Plan: -Patient continues to meet criteria for inpatient psychiatric admission for symptom stabilization and safety. Patient has not signed adult voluntary form and medication consent and was placed in patient's chart. Patient's court order is active until 05/15/2021. -Medications: continue with Zoloft 50 mg daily for mood/anxiety. increased Lamictal to 50 mg twice a day for mood stabilization. Patient is currently on Haldol Decanoate 100 mg every 2 weeks with his next dose due tomorrow. will increase the dose to 125mg. -When necessary Ativan and Haldol for agitation/aggression. -NRT - [nicotine patch] -SW on board for discharge planning. Encouraged the patient to participate in milieu.
[2021-01-30] MEDS: MAG HYDROX/AL HYDROX/SIMETH 30 ML CUP PO PRN ×2 (14:41→21:01)
[2021-01-30] MEDS: LORazepam 1 MG TAB PO PRN (21:01)
[2021-01-31] MEDS: SERTRALINE 50 MG TAB PO SCH (08:11)
[2021-01-31] MEDS: lamoTRIgine 25 MG TAB PO SCH (08:11)
[2021-01-31] MEDS: NICOTINE 21MG/24HR PATCH TRANSDERM SCH (08:11)
[2021-01-31] MEDS ORDERED: HALOPERIDOL DECANOATE 100 MG/ML 1 ML VIAL IM ONE (10:00)
--- NOTE | 2021-01-31 11:47 | P.PN ---
Progress Note - Text Progress Note Date: 01/31/21 Interval History: Patient was seen laying in his bed this morning and was directable and agreeable to speak with scenario writer. patient refused to get out of his bed again today to speak with scenario writer. He claims that he is still feeling mildly tired during the day. He appears to have improvement in his impulse control and is showing mild improvement in his insight today. He acknowledged that he is on a substance use disorder and claims that he knows that he has to go to rehab once he is discharged. He did claim that he has his belongings at his home and needs to have them picked up. He was not endorsing any paranoia or delusions today. He did state that he was going to some groups however was fairly superficial about what he is learning from them. he is denying any depression or anxiety today. He is not religiously preoccupied today and does not have racing thoughts. He states that he is able to sleep throughout the night fairly proximately 6-7 hours last night. At this time patient denies any suicidal or homical ideations, intent or plan. Patient denies any auditory, visual hallucinations. She has been taking his medications every day and is denying any side effects. He took the Haldol D injection today. Mental Status Exam: General Appearance: Patient appears to be stated age is alert, guarded at times. Patient appears to have poor hygiene and grooming, improving mildly. Behavior: Patient is laying in bed without any agitated behavior. Less irritable today Speech: Patient's speech is spontaneous, normal in volume, nonpressured. Mood/Affect: Patient reports their mood is "fine", affect is less irritable. Suicidality/Homicidality: Patient denies having any homicidal ideation intent or plan. Denies any suicidal ideations intent or plan Perceptions: Patient denies any visual hallucinations and denies any auditory hallucinations Though content/process: Patient is bizarre, improving mildly. Poor historian. Article today. Memory and concentration: AOX3, grossly intact for the purposes of this session. Judgment and insight: Chronically poor, improving mildly Assessment Schizoaffective disorder, bipolar type Methamphetamine abuse Cannabis use disorder Nicotine dependence Plan: -Patient continues to meet criteria for inpatient psychiatric admission for symptom stabilization and safety. Patient has not signed adult voluntary form and medication consent and was placed in patient's chart. Patient's court order is active until 05/15/2021. Patient is also on a substance use disorder until 02/14/2021. -Medications: continue with Zoloft 50 mg daily for mood/anxiety. changed Lamictal to 100 mg twice a day for mood stabilization. Patient is currently on Haldol Decanoate 125mg [id number] and recieved his last dose on 01/31 and will be due for his next one on 02/14 -When necessary Ativan and Haldol for agitation/aggression. -NRT - nicotine patch -SW on board for discharge planning. Encouraged the patient to participate in milieu. likely discharge in 1-2 days. Patient to call access line for rehab intake date.
[2021-01-31] MEDS ORDERED: lamoTRIgine 100 MG TAB PO SCH (21:00)
[2021-02-01] MEDS: SERTRALINE 50 MG TAB PO SCH (08:31)
[2021-02-01] MEDS: NICOTINE 21MG/24HR PATCH TRANSDERM SCH ×2 (08:31→10:54)
--- NOTE | 2021-02-01 10:10 | P.PN ---
Progress Note - Text Progress Note Date: 02/01/21 Interval History: Patient was seen laying in his bed this morning and was directable and agreeable to speak with tag writer. Patient appeared to be fairly irritable and aggressive with tag writer today. He claims that he has "paperwork from [facility]" dad states that he cannot be on lithium and Haldol and repeatedly accused tag writer of putting him on this combination of medications. Fire Control System Installer attempted to explain and find out why patient was concerned about this and patient continued to state that "you don't know what you're doing the paperwork said that". He was fairly vague about his explanation and became more defensive and aggressive with tag writer. He states that he is also "dying" from the medications and that "nobody is helping me". He also was yelling and shouting at tag writer during the conversation and when asked to lower his voice, patient states that "what I can't have feelings" and patient did not answer any other questions regarding his symptoms or his sleep and became much more agitated and stormed out of the office slamming the door. Mental Status Exam: General Appearance: Patient appears to be stated age is alert, loud and aggressive. Patient appears to have poor hygiene and grooming, improving mildly. Behavior: Patient is laying in bed without any agitated behavior. Agitated at times Speech: Patient's speech is spontaneous, normal in volume, nonpressured. Mood/Affect: Patient reports their mood is "pissed off", affect is irritable. Suicidality/Homicidality: Unable to assess Perceptions: Unable to assess Though content/process: Patient is bizarre, threatening. Preoccupied with his medications and believes that he is "dying". Memory and concentration: AOX3, grossly intact for the purposes of this session. Judgment and insight: Chronically poor and impulsive Assessment Schizoaffective disorder, bipolar type Methamphetamine abuse Cannabis use disorder Nicotine dependence Plan: -Patient continues to meet criteria for inpatient psychiatric admission for symptom stabilization and safety. Patient has not signed adult voluntary form and medication consent and was placed in patient's chart. Patient's court order is active until 05/15/2021. Patient is also on a substance use disorder until 02/14/2021. -Medications: Increased Zoloft 100 mg daily for mood/anxiety. Increased Lamictal to 100 mg + 50mg hs for mood stabilization. Patient is currently on Haldol Decanoate 125mg [id number] and recieved his last dose on 01/31 and will be due for his next one on 02/14 -We'll ask medicine to come and evaluate patient once again today. -When necessary Ativan and Haldol for agitation/aggression. -NRT - nicotine patch -SW on board for discharge planning. Encouraged the patient to participate in milieu. likely discharge in 1-2 days. Patient to call access line for rehab intake date.
[2021-02-01] MEDS: PANTOPRAZOLE 40 MG TABLET PO SCH (11:04)
[2021-02-01] MEDS: LORazepam 1 MG TAB PO PRN ×2 (11:29→20:57)
[2021-02-01] MEDS: haloperidoL 5 MG TAB PO PRN ×2 (11:29→20:58)
[2021-02-01] MEDS ORDERED: lamoTRIgine 25 MG TAB PO SCH (21:00)
--- NOTE | 2021-02-01 21:04 | P.MDCNMH ---
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 he went on and on and on . patient was concerned regarding the well being of his gut bacteria , and was wondering if bad bacteria and fungi are eating his gut away. and was seeking treatment for this if he has them. he otherwise denies any active complaints. he denies any abd pain , nausea, vomiting, diarrhea , GI bleed, fever, or chills. he also admitted to history of polysubstance abuse, sharing needles, and having multiple sex partners with out using protection. he is requesting tests and treatment for possible HIV and Hepatitis C. again , currently he is not reporting any specific complaints. Review of Systems Pertinent positives as noted in HPI. All other systems were reviewed and are negative Past Medical History Past Medical History: GERD/Reflux, Musculoskeletal Disorder, Seizure Disorder Additional Past Medical History / Comment(s): scoliosis, herpes, hiatal hernia, migraines, Hepatitis C History of Any Multi-Drug Resistant Organisms: None Reported Past Surgical History: No Surgical Hx Reported Additional Past Surgical History / Comment(s): EGD about 10 years ago, Past Anesthesia/Blood Transfusion Reactions: No Reported Reaction Past Psychological History: Anxiety, Bipolar, Depression, Schizoaffective Disorder Smoking Status: Current every day smoker Past Alcohol Use History: Rare Past Drug Use History: Cocaine, Marijuana, Methamphetamine - Past Family History Mother History Unknown: Yes Additional Family Medical History / Comment(s): from suicide attempt Father History Unknown: Yes Additional Family Medical History / Comment(s): Reports that he is currently in the stages of dying- but wont clarify further. Inititally the patient stated his father was . Medications and Allergies Home Medications Medication Instructions Recorded Confirmed Type Omeprazole [PriLOSEC] 40 mg PO DAILY 30 Days cap 06/29/20 01/26/21 Rx Sertraline HCl [Zoloft] 100 mg PO DAILY 08/26/20 01/26/21 History Haloperidol Decanoate [Haldol D] 100 mg IM Q14D 01/25/21 01/26/21 History Methimazole [Tapazole] 5 mg PO Q8H 01/25/21 01/26/21 History lamoTRIgine [LaMICtal] 100 mg PO DAILY 01/25/21 01/26/21 History Allergies Allergy/AdvReac Type Severity Reaction Status Date / Time cat dander Allergy Itching Verified 01/27/21 13:25 fluphenazine [From Prolixin] AdvReac seizures Verified 01/27/21 13:25 oxcarbazepine AdvReac seizures Verified 01/27/21 13:25 [From Trileptal] paliperidone [From Invega] AdvReac delusional Verified 01/27/21 13:25 risperidone [From Risperdal] AdvReac seizures Verified 01/27/21 13:25 Physical Exam Vitals: Vital Signs Temp 02/01/21 16:04 97.3 F L 02/01/21 09:46 97.7 F Constitutional: No acute distress, conversant, pleasant Eyes: Anicteric sclerae, moist conjunctiva, Pupils equal round reactive to light ENMT: NC/AT Oropharynx clear, no erythema, or exudates Neck: Supple, FROM, no masses, or JVD No carotid bruits No thyromegaly Lungs: Clear to auscultation Clear to percussion Normal respiratory effort, no accessory muscle use Cardiovascular: Heart regular in rate and rhythm, No murmurs, gallops, or rubs No peripheral edema Abdominal: Soft Nontender, no guarding, rebound or rigidity Abdomen moving with respiration Normoactive bowel sounds No hepatomegaly, No splenomegaly No palpable mass No abdominal wall hernia noted Skin: Normal temperature, tone, texture, turgor No induration No subcutaneous nodules No rash, lesions No ulcers Extremities: No digital cyanosis No clubbing Pedal pulses intact and symmetrical Radial pulses intact and symmetrical No calf tenderness Psychiatric: Alert and oriented to person, place and time Appropriate affect fair judgement Neuro Muscles Strength 5/5 in all 4 extremities Sensation to light touch grossly present throughout Cranial nerves II-XII grossly intact No focal sensory deficits Lymphatics: no palpable cervical or supraclavicular , or inguinal lymph nodes Cranial Nerve Examination - Cranial Nerves Cranial Nerve II- Optic: Intact Cranial Nerve III- Oculomotor: Intact Cranial Nerve IV- Trochlear: Intact Cranial Nerve V- Trigeminal: Intact Cranial Nerve - Abducens: Intact Cranial Nerve VII- Facial: Intact Cranial Nerve VIII- Auditory: Intact Cranial Nerve IX- Glossopharyngeal: Intact Cranial Nerve X- Vagus: Intact Cranial Nerve XI- Accessory: Intact Cranial Nerve XII- Hypoglossal: Intact Results CBC & Chem 7: 01/26/21 20:32 01/27/21 07:11 Assessment and Plan Assessment: acute psychosis management per psychiatry concerns regarding HIV and hepatitis C denies any actual diagnosis in the past , or any active complaints agrees for referral to outpatient ID for evaluation and treatment counseled regarding safe sex practice and to avoid sharing needles and abstain from illegal drugs follow up labs FOBT UA Thank you for allowing us to participate in the care of this patient. We will follow peripherally. Do not hesitate to contact us with questions. Someone can be reached from the [facility] hospitalist group at all hours of the day at [phone].
[2021-02-02] MEDS: PANTOPRAZOLE 40 MG TABLET PO SCH (08:11)
[2021-02-02] MEDS: NICOTINE 21MG/24HR PATCH TRANSDERM SCH (08:11)
[2021-02-02] MEDS: SERTRALINE 100 MG TAB PO SCH (08:11)
[2021-02-02 08:14] VITALS: RESP 18
[2021-02-02 12:31] LABS: Amorphous Sediment,Urine Rare /hpf; Appearance,Urine Cloudy (Clear); Bilirubin,Urine Negative (Negative); Blood,Urine Negative (Negative); Color,Urine Yellow; Glucose,Urine (UA) Negative (Negative); Ketones,Urine Negative (Negative); Leukocyte Esterase,Urine Negative (Negative); Mucus,Urine Occasional /hpf; Nitrite,Urine Negative (Negative); PH, Urine 6.5 (5.0-8.0); Protein,Urine Negative (Negative); RBC,Urine <1 /hpf (0-5); Specific Gravity,Urine 1.019 (1.001-1.035); Squamous Epithelial Cell,Urine 1 /hpf (0-4); Urobilinogen,Urine <2.0 mg/dL (<2.0); WBC,Urine 1 /hpf (0-5)
--- NOTE | 2021-02-02 12:40 | P.PN ---
Progress Note - Text Progress Note Date: 02/02/21 Interval History: Patient was seen wandering the hallways this morning and was directable and ag reeable to speak with data analyst report writer. Patient appeared to be much more cooperative with data analyst report writer today. He apologized for his outburst and behavior yesterday. He claims that he was not able to sleep well last night and requested to have Haldol and Ativan which helped him to sleep. He states that most likely was because he was sleeping during the day. He claims that he has been going to some groups well for was superficial about what he is learning. He claims that he called [facility] and got an intake appointment for tomorrow at 1 PM. He appears to be less delusional and less bizarre today. He was fairly directable and more appropriately during conversation. He asked several questions about his medications. He claims that his mood is been more stable and is denying any depression or anxiety today. Patient was agreeable to try Benadryl at nighttime for sleep. Today patient is denying any suicidal or homicidal ideation intent or plan and denying any auditory or visual hallucinations. Mental Status Exam: General Appearance: Patient appears to be stated age is alert, more cooperative today and less bizarre. Patient appears to have mildly improving hygiene and grooming. Behavior: Patient is hitting in the chair without any agitated behavior. More appropriate Speech: Patient's speech is spontaneous, normal in volume, nonpressured. Mood/Affect: Patient reports their mood is "good", affect is congruent Suicidality/Homicidality: denies Perceptions: denies Though content/process: Patient is bizarre chronically with chronic delusions, which is improving moderately. More appropriate and goal oriented today. Memory and concentration: AOX3, grossly intact for the purposes of this session. Judgment and insight: Chronically poor, improving mildly Assessment Schizoaffective disorder, bipolar type Methamphetamine abuse Cannabis use disorder Nicotine dependence Plan: -Patient continues to meet criteria for inpatient psychiatric admission for symptom stabilization and safety. Patient has not signed adult voluntary form and medication consent and was placed in patient's chart. Patient's court order is active until 05/15/2021. Patient is also on a substance use disorder until 02/14/2021. -Medications: Zoloft 100 mg daily for mood/anxiety. Increased Lamictal to 100 mg bid for mood stabilization. Patient is currently on Haldol Decanoate 125mg [id number] and recieved his last dose on 01/31 and will be due for his next one on 02/14 -Appreciate medicine recs, [id number] results of fecal occult blood test and also UA. -When necessary Ativan and Haldol for agitation/aggression. -NRT - nicotine patch -SW on board for discharge planning. Encouraged the patient to participate in milieu. Patient has appointment for rehab intake at [facility] [place] tomorrow at 1pm and SW attempting to coordinate with ACT team to have patient picked up and taken to his intake tomorrow.
[2021-02-02 12:58] LABS: Amphetamine Screen,Urine Detected (NotDetected); Barbiturate Screen,Urine Not Detected (NotDetected); Benzodiazepines Screen,Urine Detected (NotDetected); Cocaine Screen,Urine Not Detected (NotDetected); Methadone Screen, Urine Not Detected (NotDetected); Opiate Screen,Urine Not Detected (NotDetected); Oxycodone Screen, Urine Not Detected (NotDetected); Phencyclidine Screen,Urine Not Detected (NotDetected); Tricyclic Antidepressant,Urine Not Detected (NotDetected); Urn Cannabinoid Scrn Detected (NotDetected)
[2021-02-02] MEDS ORDERED: lamoTRIgine 100 MG TAB PO SCH (21:00)
[2021-02-02] MEDS ORDERED: diphenhydrAMINE 25 MG CAP PO SCH (21:00)
[2021-02-03 06:43] VITALS: BP 110/76; PULSE 77; TEMP 97.3
[2021-02-03] MEDS: NICOTINE 21MG/24HR PATCH TRANSDERM SCH (08:00)
[2021-02-03] MEDS: SERTRALINE 100 MG TAB PO SCH (08:00)
[2021-02-03] MEDS: PANTOPRAZOLE 40 MG TABLET PO SCH (08:00)
[2021-02-03] MEDS ORDERED: lamoTRIgine 100 MG TAB PO SCH (09:00)
--- NOTE | 2021-02-04 06:56 | DS ---
DISCHARGE SUMMARY DATE OF SERVICE: 02/03/2021 DATE OF ADMISSION: 01/26/2021 DATE OF DISCHARGE: 02/03/2021 ADMISSION AND DISCHARGE DIAGNOSIS: 1. Schizoaffective disorder, bipolar type. 2. Methamphetamine abuse. 3. Cannabis use disorder. 4. Nicotine dependence. HISTORY OF PRESENTING ILLNESS: The patient is a 45-year-old male with a history of schizophrenia, depression and anxiety. He has had multiple psychiatric hospitalizations. He was admitted on a court order with a pick-up order escorted by police. He has a treatment order that expires 05/15/2021. He currently is on Haldol Decanoate IM 100 mg every 2 weeks. The patient was not able to engage in the admission interview and the only specific information he provided was that sleep and appetite were poor. Beyond that, he was vague about any issues in his recent life or circumstances relating to his coming to the hospital. CURRENT MEDICATIONS: Include Haldol Decanoate 100 mg IM every 2 weeks, Lamictal 100 mg daily and Zoloft 100 mg daily. MENTAL STATUS EXAM: The patient was uncooperative and difficult to redirect. He had poor hygiene and grooming. He had a disheveled appearance. He was restless. His speech was spontaneous and non-pressured. He had a down mood and irritable affect. He denied any thoughts of harm. He was not reporting any psychotic symptoms though presented with multiple bizarre delusions. He was oriented and alert. COURSE OF HOSPITALIZATION: Patient was admitted for comprehensive medical, psychiatric and psychosocial evaluation. We engaged the patient in individual and group therapeutic activities. On admission the patient was started on Zoloft 50 mg a day, Lamictal 25 mg twice a day and Haldol Decanoate 100 mg every 2 weeks with his next dose due on 01/31/2021. Early on in his hospital stay, the patient tended to isolate. He did not cooperate much with interviews. He did not attend groups. He had periods where he would get quite agitated. As his hospitalization progressed he began to show some improvement. He had better containment of impulses. He was a little more engaging with staff. He did make an effort to attend some of the groups. As his hospitalization progressed he was more engaged in treatment. He became focused on a plan to go to a substance use treatment program. He made contact with [facility] and was set up for an intake. On the day of discharge, his mood improved. He showed at least some insight relating to substance use issues. On January 31, he received Haldol Decanoate 125 mg IM and is indicated to receive a followup dose on February 14. He was able to engage appropriately in discharge planning including making indications that he would be willing to pay for a cab ride from the hospital to [facility] for an intake. CONDITION AT DISCHARGE: Patient was stable. His mood was improved. He voiced no thoughts of harm. He tolerated his psychotropic medications. RECOMMENDATIONS AND FOLLOWUP: The patient is discharged and will be transported to [facility] for an intake evaluation for substance use treatment. DISCHARGE MEDICATIONS: Include Zoloft 100 mg a day, Lamictal 100 mg twice a day and Haldol Decanoate with anticipated administration of 125 mg on 02/14/2021. MMLUIS FELIPEL / IJN: [id number] /
== END 2021-02-03 14:12 | DRG 885 ==
LOC: EC 19:35 → 3MHU 01-27 00:50
PROVIDERS: ADMIT Psychiatry & Neurology Psychiatry; ATTEND Psychiatry & Neurology Psychiatry
DX: F25.0 Schizoaffective disorder, bipolar type (principal); F12.10 Cannabis abuse, uncomplicated; F15.10 Other stimulant abuse, uncomplicated; F17.200 Nicotine dependence, unspecified, uncomplicated; G40.909 Epilepsy, unspecified, not intractable, without status epilepticus; J44.9 Chronic obstructive pulmonary disease, unspecified; Z79.899 Other long term (current) drug therapy; Z91.19 Patient's noncompliance with other medical treatment and regimen; Z20.822 Contact with and (suspected) exposure to COVID-19
CPT/HCPCS: 36415; 71045; 80048; 80053; 80061; 80143; 80179; 80306; 81001; 82075; 82272; 83036; 83690; 83735; 84443; 85025; 85730; 87635; 93005; 99285

== ENCOUNTER 2021-02-07 14:18 | Inpatient (IN) | payer MEDICARE, MEDICAID ==
--- NOTE | 2021-02-07 14:36 | ED ---
General Adult HPI - General Source: patient Mode of arrival: ambulatory Limitations: no limitations <Carlos Herndon D - Last Filed: 02/07/21 14:34> <Daryn Abebe - Last Filed: 02/07/21 16:40> - General Chief complaint: Psychiatric Symptoms Stated complaint: Mental health Time Seen by Provider: 02/07/21 14:30 - History of Present Illness Initial comments: Dictation was produced using [employer] dictation software. please excuse any grammatical, word or spelling errors. Chief Complaint: 45-year-old male brought in by law enforcement for psychiatric admission History of Present Illness: Is a 45-year-old male presents to the emergency department enforcement. There was a petition signed for the patient on behalf of [facility] for admission to inpatient psychiatry. Patient is recently admitted to inpatient psychiatry. He was supposed to be discharged to the rehab facility however he eloped. Just was recently admitted to inpatient psych for days ago previous history of schizoaffective disorder, bipolar disease, methamphetamine use. Enforcement course the patient was showing psychotic behavior in route to the emergency department. Patient denies any of this. He states that he denies any suicidal or homicidal ideation. Denies any medical complaints. The ROS documented in this emergency department record has been reviewed and confirmed by me. Those systems with pertinent positive or negative responses have been documented in the HPI. All other systems are other negative and/or noncontributory. PHYSICAL EXAM: General Impression: Alert and oriented x3, not in acute distress, disheveled HEENT: Normocephalic atraumatic, extra-ocular movements intact, pupils equal and reactive to light bilaterally, mucous membranes moist. Cardiovascular: Heart regular rate and rhythm Chest: Able to complete full sentences, no retractions, no tachypnea Abdomen: abdomen soft, non-tender, non-distended, no organomegaly Musculoskeletal: Pulses present and equal in all extremities, no peripheral edema Motor: no focal deficits noted Neurological: CN II-XII grossly intact, no focal motor or sensory deficits noted Skin: Intact with no visualized rashes Psych: Normal affect and mood ED course: 45-year-old male brought in by law enforcement for inpatient psychiatric admission. Patient is brought in by law enforcement for court order. Vital signs upon arrival are within acceptable limits. Patient well- appearing at bedside. (Carlos Herndon) - Related Data Home Medications Medication Instructions Recorded Confirmed Nicotine 21Mg/24Hr Patch [Habitrol] 1 patch TRANSDERM DAILY PRN 02/07/21 02/07/21 Previous Rx's Medication Instructions Recorded Haloperidol Decanoate [Haldol D] 125 mg IM [id number] #1 vial 02/02/21 Omeprazole [PriLOSEC] 40 mg PO DAILY 30 Days cap 02/02/21 Sertraline [Zoloft] 100 mg PO DAILY 30 Days tab 02/02/21 diphenhydrAMINE [Benadryl] 25 mg PO HS PRN 30 Days cap 02/02/21 lamoTRIgine [LaMICtal] 100 mg PO BID 30 Days tab 02/02/21 Allergies Allergy/AdvReac Type Severity Reaction Status Date / Time cat dander Allergy Itching Verified 02/07/21 16:21 fluphenazine [From Prolixin] AdvReac seizures Verified 02/07/21 16:21 oxcarbazepine AdvReac seizures Verified 02/07/21 16:21 [From Trileptal] paliperidone [From Invega] AdvReac delusional Verified 02/07/21 16:21 risperidone [From Risperdal] AdvReac seizures Verified 02/07/21 16:21 Review of Systems ROS Other: All systems not noted in ROS Statement are negative. <Carlos Herndon - Last Filed: 02/07/21 14:34> ROS Other: All systems not noted in ROS Statement are negative. <Daryn Abebe - Last Filed: 02/07/21 16:40> ROS Statement: Those systems with pertinent positive or pertinent negative responses have been documented in the HPI. Past Medical History Past Medical History: GERD/Reflux, Musculoskeletal Disorder, Seizure Disorder Additional Past Medical History / Comment(s): scoliosis, herpes, hiatal hernia, migraines, Hepatitis C History of Any Multi-Drug Resistant Organisms: None Reported Past Surgical History: No Surgical Hx Reported Additional Past Surgical History / Comment(s): EGD about 10 years ago, Past Anesthesia/Blood Transfusion Reactions: No Reported Reaction Past Psychological History: Anxiety, Bipolar, Depression, Schizoaffective Disorder Smoking Status: Current every day smoker Past Alcohol Use History: Rare Past Drug Use History: Cocaine, Marijuana, Methamphetamine - Past Family History Mother History Unknown: Yes Additional Family Medical History / Comment(s): from suicide attempt Father History Unknown: Yes Additional Family Medical History / Comment(s): Reports that he is currently in the stages of dying- but wont clarify further. Inititally the patient stated his father was . <Carlos Herndon - Last Filed: 02/07/21 14:34> General Exam Limitations: no limitations <Carlos Herndon - Last Filed: 02/07/21 14:34> Course Vital Signs 02/07/21 02/07/21 14:25 16:00 Temperature 98 F 98.2 F Pulse Rate 87 78 Respiratory 16 18 Rate Blood Pressure 111/77 124/82 O2 Sat by Pulse 100 100 Oximetry Medical Decision Making <Daryn Abebe - Last Filed: 02/07/21 16:40> - Medical Decision Making Patient will be admitted for psychiatric evaluation treatment (Daryn Abebe) Disposition <Carlos Herndon - Last Filed: 02/07/21 14:34> Is patient prescribed a controlled substance at d/c from ED?: No Decision to Admit Reason: Admit from EC Decision Date: 02/07/21 Decision Time: 16:40 <Daryn Abebe - Last Filed: 02/07/21 16:40> Clinical Impression: Chronic schizophrenia, Polysubstance abuse Disposition: ADMITTED IP TO THIS [facility] Condition: Stable Referrals: None,Stated [Primary Care Provider] - 1-2 days
[2021-02-07] MEDS ORDERED: diphenhydrAMINE 25 MG CAP PO PRN (22:49)
[2021-02-07] MEDS ORDERED: MAGNESIUM HYDROXIDE 2,400 MG/10 ML CUP PO PRN (22:52)
[2021-02-07] MEDS ORDERED: MAG HYDROX/AL HYDROX/SIMETH 30 ML CUP PO PRN (22:52)
[2021-02-07] MEDS ORDERED: ACETAMINOPHEN TAB 325 MG TAB PO PRN (22:52)
[2021-02-07] MEDS ORDERED: HALOPERIDOL LACTATE 5 MG/ML 1 ML VIAL IM PRN (22:54)
[2021-02-07] MEDS ORDERED: LORazepam 2 MG/ML INJ IM PRN (22:54)
[2021-02-07] MEDS ORDERED: haloperidoL 5 MG TAB PO PRN (22:54)
[2021-02-08 07:14] LABS: Basophils # (A) 0.1 k/uL (0-0.2); Basophils % (A) 1 %; Eosinophils # (A) 0.3 k/uL (0-0.7); Eosinophils % (A) 5 %; HCT 43.8 % (39.0-53.0); HGB 13.9 gm/dL (13.0-17.5); Lymphocytes % (A) 15 %; MCHC 31.6 g/dL (31.0-37.0); MCV 88.6 fL (80.0-100.0); Mean Platelet Volume 6.8; Monocytes # (A) 0.5 k/uL (0-1.0); Monocytes % (A) 7 %; Neutrophils # (A) 4.7 k/uL (1.3-7.7); Neutrophils % (A) 70 %; Platelet Count 261 k/uL (150-450); RBC 4.95 m/uL (4.30-5.90); RDW 15.6 % (11.5-15.5); WBC 6.7 k/uL (3.8-10.6)
[2021-02-08 07:51] LABS: ALT 69 U/L (4-49); AST 63 U/L (17-59); African American GFR (CKD) >90 (>60 ml/min/1.73 sqM); Alkaline Phosphatase 90 U/L (38-126); Anion Gap 7 mmol/L; Blood Urea Nitrogen 16 mg/dL (9-20); Carbon Dioxide 25 mmol/L (22-30); Chloride 108 mmol/L (98-107); Glucose 64 mg/dL (74-99); Non-African American GFR(CKD) >90 (>60 ml/min/1.73 sqM); Potassium 3.9 mmol/L (3.5-5.1); Sodium 140 mmol/L (137-145); Total Bilirubin 0.7 mg/dL (0.2-1.3); Total Protein 6.7 g/dL (6.3-8.2)
[2021-02-08 10:41] LABS: Chol/HDL Ratio 3.05; Cholesterol 125 mg/dL (0-200); LDL Cholesterol,Calculated 72.8 mg/dL (0.0-131.0)
--- NOTE | 2021-02-08 12:57 | P.HP ---
Psychiatric H&P - . H&P Date: 02/08/21 History & Physical: Allergies Allergy/AdvReac Type Severity Reaction Status Date / Time cat dander Allergy Itching Verified 02/07/21 16:21 fluphenazine [From Prolixin] AdvReac seizures Verified 02/07/21 16:21 oxcarbazepine AdvReac seizures Verified 02/07/21 16:21 [From Trileptal] paliperidone [From Invega] AdvReac delusional Verified 02/07/21 16:21 risperidone [From Risperdal] AdvReac seizures Verified 02/07/21 16:21 Vital Signs Temp 98.2 F 02/08/21 06:32 Pulse 91 02/08/21 06:32 Resp 16 02/08/21 06:32 BP 128/78 02/08/21 06:32 Pulse Ox 97 02/07/21 22:20 Intake & Output 02/07/21 02/08/21 02/08/21 18:59 06:59 18:59 Weight 63.503 kg Laboratory Last Values WBC 6.7 k/uL (3.8-10.6) 02/08/21 06:45 RBC 4.95 m/uL (4.30-5.90) 02/08/21 06:45 Hgb 13.9 gm/dL (13.0-17.5) 02/08/21 06:45 Hct 43.8 % (39.0-53.0) 02/08/21 06:45 MCV 88.6 fL (80.0-100.0) 02/08/21 06:45 MCH 28.0 pg (25.0-35.0) 02/08/21 06:45 MCHC 31.6 g/dL (31.0-37.0) 02/08/21 06:45 RDW 15.6 % (11.5-15.5) H 02/08/21 06:45 Plt Count 261 k/uL (150-450) 02/08/21 06:45 MPV 6.8 02/08/21 06:45 Neutrophils % 70 % 02/08/21 06:45 Lymphocytes % 15 % 02/08/21 06:45 Monocytes % 7 % 02/08/21 06:45 Eosinophils % 5 % 02/08/21 06:45 Basophils % 1 % 02/08/21 06:45 Neutrophils # 4.7 k/uL (1.3-7.7) 02/08/21 06:45 Lymphocytes # 1.0 k/uL (1.0-4.8) 02/08/21 06:45 Monocytes # 0.5 k/uL (0-1.0) 02/08/21 06:45 Eosinophils # 0.3 k/uL (0-0.7) 02/08/21 06:45 Basophils # 0.1 k/uL (0-0.2) 02/08/21 06:45 Sodium 140 mmol/L (137-145) 02/08/21 06:45 Potassium 3.9 mmol/L (3.5-5.1) 02/08/21 06:45 Chloride 108 mmol/L (98-107) H 02/08/21 06:45 Carbon Dioxide 25 mmol/L (22-30) 02/08/21 06:45 Anion Gap 7 mmol/L 02/08/21 06:45 BUN 16 mg/dL (9-20) 02/08/21 06:45 Creatinine 0.93 mg/dL (0.66-1.25) 02/08/21 06:45 Est GFR (CKD-EPI)AfAm >90 (>60 ml/min/1.73 sqM) 02/08/21 06:45 Est GFR (CKD-EPI)NonAf >90 (>60 ml/min/1.73 sqM) 02/08/21 06:45 Glucose 64 mg/dL (74-99) L 02/08/21 06:45 Calcium 9.0 mg/dL (8.4-10.2) 02/08/21 06:45 Total Bilirubin 0.7 mg/dL (0.2-1.3) 02/08/21 06:45 AST 63 U/L (17-59) H 02/08/21 06:45 ALT 69 U/L (4-49) H 02/08/21 06:45 Alkaline Phosphatase 90 U/L (38-126) 02/08/21 06:45 Total Protein 6.7 g/dL (6.3-8.2) 02/08/21 06:45 Albumin 4.0 g/dL (3.5-5.0) 02/08/21 06:45 Triglycerides 56.0 mg/dL (0.0-149.0) 02/08/21 06:45 Cholesterol 125 mg/dL (0-200) 02/08/21 06:45 LDL Cholesterol, Calc 72.8 mg/dL (0.0-131.0) 02/08/21 06:45 VLDL Cholesterol, Calc 11.20 mg/dL (5.00-40.00) 02/08/21 06:45 HDL Cholesterol 41.0 mg/dL (40.0-60.0) 02/08/21 06:45 Cholesterol/HDL Ratio 3.05 02/08/21 06:45 TSH 0.104 mIU/L (0.465-4.680) L 02/08/21 06:45 Coronavirus (PCR) Not Detected (Not Detectd) 02/07/21 16:37 02/08/21 12:06 IDENTIFYING DATA: Patient is a 45-year-old male with significant history of schizophrenia, depression, and anxiety with a history of multiple inpatient psychiatric hospitalizations admitted on a court order. HPI: Patient presented to the hospital yesterday on a pickup order escorted by the police. Patient apparently is on a active treatment order which expires 05/15/2021. Patient is also on an active substance use treatment order. Nicole leigh has a chronic history of schizophrenia polysubstance abuse and is currently on Haldol D IM 125 mg injections every 2 weeks and being followed by [facility]. Patient also has a history of substance abuse. Patient was recently admitted to the mental health unit last week and discharged last Saturday 01/27. Patient had a intake for rehab and he claims that he got into the cab however decided to not go to rehab and went to his friend's house instead. Patient claims that he has not been taking his medications and states that "I may have done a little bit of meth and weed". When asked more about what happened patient became guarded and evasive and states "it's none of your business doc". He appears to be disheveled in appearance and was fairly irritable with content writer. He was a poor historian. She made other bizarre comments and endorsed paranoia towards others including police. He refused to sign for medications. He states his sleep is poor and appetite is poor. He is currently denying any auditory or visual hallucinations or any active suicidal or homicidal ideations intent or plan. PAST PSYCHIATRIC HISTORY: Patient has a diagnosis of schizophrenia, depression, and anxiety. He also engages in polysubstance use including marijuana and methamphetamines. He has had multiple trials of medications including Haldol, Invega, Risperdal, Prolixin, and Trileptal. He has had multiple inpatient psychiatric admissions. His last admission was last week. He reports one prior attempt at suicide in the past but refuses to elaborate. Current prescribed medications include Haldol Decanoate 125 mg IM every 2 weeks, with the next administration due on 02/14. PMH: COPD, GERD, seizure disorder, migraines ALLERGIES: as per EMR CHEMICAL DEPENDENCY HISTORY: Patient has a history of polysubstance abuse including methamphetamine and also smokes cigarettes. FAMILY PSYCHIATRIC/SUBSTANCE USE HISTORY: Patient reports multiple family members with mental illness but is unable to elaborate. SOCIAL HISTORY: Patient was born and raised in [place]. He reports that both his parents are . 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 He is currently receiving Social Security disability. He was never . MENTAL STATUS EXAM: General Appearance: Patient appears to be stated age is alert, uncooperative and difficult to redirect. Patient appears to have poor hygiene and grooming. Disheveled appearance. Behavior: Patient is laying in bed without any agitated behavior. Restless. Speech: Patient's speech is spontaneous, normal in volume, nonpressured. Mood/Affect: Patient reports their mood is "ok", affect is irritable. Suicidality/Homicidality: Patient denies having any homicidal ideation intent or plan. Denies any suicidal ideations intent or plan Perceptions: Patient denies any visual hallucinations and denies any auditory hallucinations Though content/process: Patient is bizarre. Poor historian and guarded. Memory and concentration: AOX3, grossly intact for the purposes of this session. Unable to assess attention span as patient refuses to participate. Judgment and insight: Very poor STRENGTHS/WEAKNESSES: strength is that patient is resilient. Weakness is that patient has poor judgment and engages in significant polysubstance use INTELLECT: Average IMPRESSIONS: Schizoaffective disorder, bipolar type Methamphetamine abuse Cannabis use disorder Nicotine dependence PLAN: -Patient is admitted under an active court order for treatment to [facility] for stabilization of psychiatric symptoms and safety. Patient has not signed adult voluntary form and medication consent and is placed in patient's chart. Patient's court order is active until 05/15/2021. She is also on an active substance use treatment order. -Medications : Will continue with Zoloft 100 mg daily for mood/anxiety. continue with Lamictal 100 mg twice a day for mood stabilization. Patient is currently on Haldol Decanoate 125 mg every 2 weeks with his next dose due on 02/14/21. Benadryl 25mg qhs prn for insomnia -Ativan and Haldol PRN for agitation/aggression -Patient was counselled on substance abuse -Patient was informed of the risks, benefits and side effects of the medication and patient verbally consented to taking the medications. Patient signed med consent form and was placed in chart. -Internal Medicine consult to perform medical evaluation and physical. -NRT - nicotine patch - on board for discharge planning. Encourage patient to participate in groups to work on coping skills. due to patients frequent rehopsitalizations, poor co mpliance with meds and rehab I would recommend that we meet with [facility] and customer business manager to discuss patients case and possibly determine if patient should be transferred to [facility] for senior living care.
[2021-02-08] MEDS: PANTOPRAZOLE 40 MG TABLET PO SCH (13:41)
[2021-02-08] MEDS: SERTRALINE 100 MG TAB PO SCH (13:41)
[2021-02-08] MEDS: lamoTRIgine 100 MG TAB PO SCH ×2 (13:41→21:16)
[2021-02-08 16:25] LABS: Hemoglobin A1C 5.6 % (4.0-6.0)
[2021-02-08] MEDS: NICOTINE 21MG/24HR PATCH TRANSDERM PRN (21:16)
--- NOTE | 2021-02-08 22:21 | P.CONS ---
History of Present Illness - Reason for Consult Consult date: 02/08/21 - History of Present Illness Patient is a 45-year-old male with a PMH of hepatitis C, seizure disorder, bipolar, and schizoaffective disorder along with polysubstance abuse who presented to the emergency room for psychiatric evaluation. The patient was patient due to strange behavior. He was admitted to the mental health unit where he was seen and evaluated. He reported feeling better since beginning admitted to the hospital. He reports daily tobacco use one pack per day. Also reported painful ulcer side of his tongue that developed over the past 1 week. Denied chest pain, shortness of breath, cough, fever, chills. Denied abdominal pain, nausea, vomiting, diarrhea. Laboratory evaluation was reviewed and was remarkable for abnormal LFTs with AST 63, ALT 69, and TSH 0.104. Review of systems: Pertinent positives and negatives as discussed in HPI, a complete review of systems was performed and all other systems are negative. Physical examination: General: non toxic, no distress, appears at stated age, normal weight Derm: no unusual rashes/lesions no unusual ecchymoses, warm, dry Head: atraumatic, normocephalic, symmetric Eyes: EOMI, no lid lag, anicteric sclera, pupils equal round reactive to light ENT: Nose and ears atraumatic, no thrush, no pharyngeal erythema, left lateral tongue aphthous ulcer noted Neck: No thyromegaly, no cervical lymphadenopathy, trachea midline, supple Mouth: no lip lesion, mucus membranes moist Cardiovascular: S1S2 reg, no murmur, positive posterior tibial pulse bilateral, no edema, capillary refill less than 2 seconds Lungs: CTA bilateral, no rhonchi, no rales , no accessory muscle use Abdominal: soft, nontender to palpation, no guarding, no appreciable organo megaly, normal bowel sounds Ext: no gross muscle atrophy, muscle strength 5 out of 5 in all 4 extremities grossly, no contractures, Neuro: CN II-XI grossly intact, light touch intact all 4 extremities, finger to nose within normal limits, Psych: Alert, oriented, appropriate affect Assessment/plan Abnormal LFTs, suspected secondary to hepatitis C -Advised patient on need for follow-up as an outpatient Low TSH -Check free T4 levels Polysubstance abuse -Advised on importance of cessation Tobacco abuse -Nicotine patch or gum as needed Psychosis -As per psychiatry Thank you for allowing us to participate in the care of this patient. We will follow peripherally. Do not hesitate to contact us with questions. Someone can be reached from the [facility] hospitalist group at all hours of the day at [phone]. Past Medical History Past Medical History: GERD/Reflux, Musculoskeletal Disorder, Seizure Disorder Additional Past Medical History / Comment(s): scoliosis, herpes, hiatal hernia, migraines, Hepatitis C History of Any Multi-Drug Resistant Organisms: None Reported Past Surgical History: No Surgical Hx Reported Additional Past Surgical History / Comment(s): EGD about 10 years ago, Past Anesthesia/Blood Transfusion Reactions: No Reported Reaction Past Psychological History: Anxiety, Bipolar, Depression, Schizoaffective Disorder Smoking Status: Current every day smoker Past Alcohol Use History: Rare Past Drug Use History: Cocaine, Marijuana, Methamphetamine - Past Family History Mother History Unknown: Yes Additional Family Medical History / Comment(s): from suicide attempt Father History Unknown: Yes Additional Family Medical History / Comment(s): Reports that he is currently in the stages of dying- but wont clarify further. Inititally the patient stated his father was . Medications and Allergies Home Medications Medication Instructions Recorded Confirmed Type Haloperidol Decanoate [Haldol D] 125 mg IM [id number] #1 vial 02/02/21 02/07/21 Rx Omeprazole [PriLOSEC] 40 mg PO DAILY 30 Days cap 02/02/21 02/07/21 Rx Sertraline [Zoloft] 100 mg PO DAILY 30 Days tab 02/02/21 02/07/21 Rx diphenhydrAMINE [Benadryl] 25 mg PO HS PRN 30 Days cap 02/02/21 02/07/21 Rx lamoTRIgine [LaMICtal] 100 mg PO BID 30 Days tab 02/02/21 02/07/21 Rx Nicotine 21Mg/24Hr Patch [Habitrol] 1 patch TRANSDERM DAILY PRN 02/07/21 02/07/21 History Allergies Allergy/AdvReac Type Severity Reaction Status Date / Time cat dander Allergy Itching Verified 02/07/21 16:21 fluphenazine [From Prolixin] AdvReac seizures Verified 02/07/21 16:21 oxcarbazepine AdvReac seizures Verified 02/07/21 16:21 [From Trileptal] paliperidone [From Invega] AdvReac delusional Verified 02/07/21 16:21 risperidone [From Risperdal] AdvReac seizures Verified 02/07/21 16:21 Physical Exam Vitals: Vital Signs Temp Pulse Resp BP Pulse Ox 02/08/21 06:32 98.2 F 91 16 128/78 02/07/21 22:20 97.5 F L 96 198 H 117/46 97 Results CBC & Chem 7: 02/08/21 06:45 02/08/21 06:45 Labs: Abnormal Lab Results - Last 24 Hours (Table) 02/08/21 02/08/21 Range/Units 06:45 06:45 RDW 15.6 H (11.5-15.5) % Chloride 108 H (98-107) mmol/L Glucose 64 L (74-99) mg/dL AST 63 H (17-59) U/L ALT 69 H (4-49) U/L TSH 0.104 L (0.465-4.680) mIU/L
[2021-02-09] MEDS: SERTRALINE 100 MG TAB PO SCH (08:57)
[2021-02-09] MEDS: lamoTRIgine 100 MG TAB PO SCH ×2 (08:57→19:58)
[2021-02-09] MEDS: PANTOPRAZOLE 40 MG TABLET PO SCH (08:57)
[2021-02-09] MEDS: NICOTINE 21MG/24HR PATCH TRANSDERM PRN (08:59)
--- NOTE | 2021-02-09 12:36 | P.PN ---
Progress Note - Text Progress Note Date: 02/09/21 Interval History: Patient was seen [wandering the hallways] and was directable and agreeable to speak with comic book writer. Patient appears to have a disheveled appearance with poor hygiene and grooming. She continues to display very poor insight and judgment. He spoke about bizarre topics including witches and potions that he is getting. He claims that he has a "stable mood" and is denying any severe anxiety at this time however states it is fairly mild. He claims that he is able to sleep fairl y last night. He continues to be very vague and defensive about his substance abuse. At this time patient denies any suicidal or homical ideations, intent or plan. Patient denies any auditory, visual hallucinations. Patient denies any side effects from the medications and has been compliant with meds. Mental Status Exam: General Appearance: Patient appears to be stated age is alert, professionally cooperative and difficult to redirect. Patient appears to have poor hygiene and grooming. Disheveled appearance. Behavior: Patient is laying in bed without any agitated behavior. Speech: Patient's speech is spontaneous, normal in volume, nonpressured. Mood/Affect: Patient reports their mood is "ok", Affect is constricted Suicidality/Homicidality: Patient denies having any homicidal ideation intent or plan. Denies any suicidal ideations intent or plan Perceptions: Patient denies any visual hallucinations and denies any auditory hallucinations Though content/process: Patient is bizarre. Poor historian and guarded. Delusional. Memory and concentration: AOX3, grossly intact for the purposes of this session. Judgment and insight: Very poor and impulsive Assessment Schizoaffective disorder, bipolar type Methamphetamine abuse Cannabis use disorder Nicotine dependence Plan: -Patient continues to meet criteria for inpatient psychiatric admission for symptom stabilization and safety. Patient has [not] signed [adult voluntary form and] [medication consent] and was placed in patient's chart. Moris in active treatment order until 05/15/2021 and also on an active substance abuse treatment order. -Medications: Continue Zoloft 100 mg daily for mood/anxiety, Lamictal 100 mg 3 times a day for mood stabilization. Patient is currently on Haldol Decanoate 125 mg every 2 weeks with his next dose due on 02/14/21. Benadryl 25mg qhs prn for insomnia -When necessary Ativan and Haldol for agitation/aggression. -NRT - [nicotine patch] -SW on board for discharge planning. Encouraged the patient to participate in milieu. due to patients frequent rehopsitalizations, poor compliance with meds and rehab I would recommend that we meet with [facility] and criminal court judge to discuss patients case and possibly determine if patient should be transferred to [place] for marine oil terminal superintendent care.
[2021-02-09] MEDS: LORazepam 1 MG TAB PO PRN (21:25)
[2021-02-10] MEDS: SERTRALINE 100 MG TAB PO SCH (09:40)
[2021-02-10] MEDS: lamoTRIgine 100 MG TAB PO SCH ×2 (09:40→21:05)
[2021-02-10] MEDS: PANTOPRAZOLE 40 MG TABLET PO SCH (09:41)
--- NOTE | 2021-02-10 12:01 | P.PN ---
Progress Note - Text Progress Note Date: 02/10/21 Interval History: Patient was seen wandering the hallways and was directable and agreeable to sp eak with senior technical writer. Patient appears to have a disheveled appearance with poor hygiene and grooming. he continues to display very poor insight and judgment during conversation with senior technical writer. He did appear to be more cooperative today however with senior technical writer and focused on obtaining his medications. He did claim that he feels "grumpy" however did not explain why. He spoke about bizarre topics briefly however seemed disinterested in conversing with senior technical writer today and more focused on his medications. He claims that he has a "ok mood" and is denying any severe anxiety at this time however states it is fairly mild. He claims that he is able to sleep fairly last night. He continues to be very vague and defensive about his substance abuse. At this time patient denies any suicidal or homical ideations, intent or plan. Patient denies any auditory, visual hallucinations. Patient denies any side effects from the medications and has been compliant with meds. Mental Status Exam: General Appearance: Patient appears to be stated age is alert, superficially cooperative. Patient appears to have poor hygiene and grooming. Disheveled appearance. Behavior: Patient is sitting in the chair without any agitated behavior. Speech: Patient's speech is spontaneous, normal in volume, nonpressured. Mood/Affect: Patient reports their mood is "ok", Affect is constricted Suicidality/Homicidality: Patient denies having any homicidal ideation intent or plan. Denies any suicidal ideations intent or plan Perceptions: Patient denies any visual hallucinations and denies any auditory hallucinations Though content/process: Patient is bizarre, improving mildly. guarded. Delusional. Memory and concentration: AOX3, grossly intact for the purposes of this session. Judgment and insight: Very poor and impulsive, improving mildly Assessment Schizoaffective disorder, bipolar type Methamphetamine abuse Cannabis use disorder Nicotine dependence Plan: -Patient continues to meet criteria for inpatient psychiatric admission for symptom stabilization and safety. Patient has not signed adult voluntary form and medication consent and was placed in patient's chart. He is on active treatment order until 05/15/2021 and also on an active substance abuse treatment order. -Medications: Continue Zoloft 100 mg daily for mood/anxiety, Lamictal 100 mg 3 times a day for mood stabilization. Patient is currently on Haldol Decanoate 125 mg every 2 weeks with his next dose due on 02/14/21. Benadryl 25mg qhs prn for insomnia -When necessary Ativan and Haldol for agitation/aggression. -NRT - nicotine patch - on board for discharge planning. Encouraged the patient to participate in milieu. due to patients frequent rehopsitalizations, poor compliance with meds and rehab I would recommend that we meet with [facility] and english horn player to discuss patients case and possibly determine if patient should be transferred to [facility] for long term care pharmacist care.
[2021-02-10] MEDS: NICOTINE 21MG/24HR PATCH TRANSDERM PRN (17:29)
[2021-02-10] MEDS: LORazepam 1 MG TAB PO PRN (17:29)
[2021-02-11] MEDS: PANTOPRAZOLE 40 MG TABLET PO SCH (08:35)
[2021-02-11] MEDS: SERTRALINE 100 MG TAB PO SCH (08:35)
[2021-02-11] MEDS: lamoTRIgine 100 MG TAB PO SCH ×2 (08:35→21:35)
[2021-02-11] MEDS: NICOTINE 21MG/24HR PATCH TRANSDERM PRN (11:31)
--- NOTE | 2021-02-11 15:48 | P.PN ---
Progress Note - Text Progress Note Date: 02/11/21 Subjective: Patient was seen today as a cross coverage for Dr. Hughes. The patient was evaluated, chart reviewed, case discussed with the treatment team. Patient reports fair sleep last night, and appetite was reported as " good". Patient has been going to groups and other unit activities. The patient is compliant with his medications and denies any adverse reactions. Patient reports feeling better today, and he greatly minimizes depression. He denies suicidal ideation. Denies any mood swings, agitation, but reports some anxiety. Denies any hallucinations, paranoid ideation, delusions, or manic symptoms. Objective: Vitals has been reviewed. Mental status examination; Appearance: The patient appears stated age, adequately groomed and dressed, no specific features. Gait/posture: Normal gait, Normal arm swinging: No abnormal movements. Attitude and behavior: engaged, cooperative, eye contact. Motor activity: Normal psychomotor activity Speech: Normal rate, tone. Mood: "Anxious" Affect: Constricted Thought form: goal-directed, linear, coherent. Thought content: Non-delusional, denies suicidal thoughts, denies homicidal thoughts, denies intentions or plans. Perception: Denies any auditory or visual hallucinations Attention: No impairment. Orientation: Patient patient was fully oriented to time place person and situation. Insight: Patient has fair insight about his psychiatric disorder. Judgment: Patient has fair judgment about his psychiatric treatment. Assessment: Schizoaffective disorder, bipolar type Methamphetamine abuse Cannabis use disorder Nicotine dependence Plan: Continue inpatient level of care due to need further monitoring and stab ilization Precautions: Continue 15 minutes check for safety. Consider medical consultation if any acute medical issues arise. Provide the patient individual, group therapy, substance use disorder counseling to give better insight and learn coping skills. Medications: Continue Haldol Decanoate 125 mg every 14 days for psychotic symptoms, and Lamictal 100 mg twice daily for mood stabilization. Continue Zoloft 100 mg daily for depression and anxiety. Continue nicotine replacement therapy. Continue as needed medications for psychiatric emergencies including psychosis, agitation and anxiety. Continue non-psychiatric medications for medical conditions as recommended by the medical team. Discharge patient to OUTPATIENT services upon a stabilization
[2021-02-11] MEDS: LORazepam 1 MG TAB PO PRN (21:36)
[2021-02-12] MEDS: SERTRALINE 100 MG TAB PO SCH (08:27)
[2021-02-12] MEDS: PANTOPRAZOLE 40 MG TABLET PO SCH (08:27)
[2021-02-12] MEDS: lamoTRIgine 100 MG TAB PO SCH ×2 (08:27→21:02)
[2021-02-12] MEDS: NICOTINE 21MG/24HR PATCH TRANSDERM PRN (12:10)
--- NOTE | 2021-02-12 14:17 | P.PN ---
Progress Note - Text Progress Note Date: 02/12/21 Subjective: Patient was seen today as a cross coverage for Dr. Hughes. The patient was evaluated, chart reviewed, case discussed with the treatment team. Patient reports feeling relatively tired today, but denies any active symptoms of anxiety, depression, or mood instability. He denies any hallucinations, paranoid ideation, or delusions. Denies any suicidal or homicidal ideation. Patient reports feeling stable enough and ready for discharge and he was educated to discuss discharge planning with primary team. Objective: Vitals has been reviewed. Mental status examination; Appearance: The patient appears stated age, adequately groomed and dressed, no specific features. Gait/posture: Normal gait, Normal arm swinging: No abnormal movements. Attitude and behavior: engaged, cooperative, eye contact. Motor activity: Normal psychomotor activity Speech: Normal rate, tone. Mood: "Fine" Affect: Constricted Thought form: goal-directed, linear, coherent. Thought content: Non-delusional, denies suicidal thoughts, denies homicidal thoughts, denies intentions or plans. Perception: Denies any auditory or visual hallucinations Attention: No impairment. Orientation: Patient patient was fully oriented to time place person and situation. Insight: Patient has fair insight about his psychiatric disorder. Judgment: Patient has fair judgment about his psychiatric treatment. Assessment: Schizoaffective disorder, bipolar type Methamphetamine abuse Cannabis use disorder Nicotine dependence Plan: Continue inpatient level of care due to need further monitoring and stabilization Precautions: Continue 15 minutes check for safety. Consider medical consultation if any acute medical issues arise. Provide the patient individual, group therapy, substance use disorder counseling to give better insight and learn coping skills. Medications: Continue Haldol Decanoate 125 mg every 14 days for psychotic symptoms, and Lamictal 100 mg twice daily for mood stabilization. Continue Zoloft 100 mg daily for depression and anxiety. Continue nicotine replacement therapy. Continue as needed medications for psychiatric emergencies including psychosis, agitation and anxiety. Continue non-psychiatric medications for medical conditions as recommended by the medical team. Discharge patient to OUTPATIENT services upon a stabilization
[2021-02-13] MEDS: SERTRALINE 100 MG TAB PO SCH (09:34)
[2021-02-13] MEDS: NICOTINE 21MG/24HR PATCH TRANSDERM PRN ×2 (09:34→17:44)
[2021-02-13] MEDS: lamoTRIgine 100 MG TAB PO SCH ×2 (09:34→19:53)
[2021-02-13] MEDS: PANTOPRAZOLE 40 MG TABLET PO SCH (09:34)
--- NOTE | 2021-02-13 13:03 | P.PN ---
Progress Note - Text Progress Note Date: 02/13/21 Interval History: Patient was seen wandering the hallways and was directable and agreeable to sp eak with report writer. Patient appears to have mild improvement in his hygiene and grooming today. He appears to be more directable with report writer during conversation. He denied any problems over the weekend and states that he is doing better in terms of his mood and anxiety. He states that he doesn't mild anxiety at times being on the unit. He appears to be more logical conversation and mildly delusional at times. he continues to display very poor insight and judgment during conversation with report writer. He states that when he gets his Haldol D injection he gets "aggressive" which usually wears off for him. He claims that he is able to sleep fairly last night. He continues to be very vague and defensive about his substance abuse. At this time patient denies any suicidal or homical ideations, intent or plan. Patient denies any auditory, visual hallucinations. Patient denies any side effects from the medications and has been compliant with meds. Mental Status Exam: General Appearance: Patient appears to be stated age is alert, superficially cooperative. Patient appears to have improving hygiene and grooming. Disheveled appearance. Behavior: Patient is sitting in the chair without any agitated behavior. Speech: Patient's speech is spontaneous, normal in volume, nonpressured. Mood/Affect: Patient reports their mood is "fine", Affect is constricted Suicidality/Homicidality: Patient denies having any homicidal ideation intent or plan. Denies any suicidal ideations intent or plan Perceptions: Patient denies any visual hallucinations and denies any auditory hallucinations Though content/process: Patient is bizarre, improving mildly. guarded. Delusional. Memory and concentration: AOX3, grossly intact for the purposes of this session. Judgment and insight: Very poor and impulsive, improving mildly Assessment Schizoaffective disorder, bipolar type Methamphetamine abuse Cannabis use disorder Nicotine dependence Plan: -Patient continues to meet criteria for inpatient psychiatric admission for symptom stabilization and safety. Patient has not signed adult voluntary form and medication consent and was placed in patient's chart. He is on active treatment order until 05/15/2021 and also on an active substance abuse treatment order. -Medications: Continue Zoloft 100 mg daily for mood/anxiety, Lamictal 100 mg 2 times a day for mood stabilization. Patient is currently on Haldol Decanoate 125 mg every 2 weeks with his next dose due on 02/14/21. Benadryl 25mg qhs prn for insomnia -When necessary Ativan and Haldol for agitation/aggression. -NRT - nicotine patch - on board for discharge planning. Encouraged the patient to participate in milieu. due to patients frequent rehopsitalizations, poor compliance with meds and rehab I would recommend that we meet with [facility] and trumpet player to discuss patients case and possibly determine if patient should be transferred to [place] for keno terminal operator care.
[2021-02-14 07:01] VITALS: RESP 16
[2021-02-14] MEDS ORDERED: HALOPERIDOL DECANOATE 100 MG/ML 1 ML VIAL IM SCH (09:00)
[2021-02-14] MEDS: SERTRALINE 100 MG TAB PO SCH (09:10)
[2021-02-14] MEDS: lamoTRIgine 100 MG TAB PO SCH ×2 (09:10→21:43)
[2021-02-14] MEDS: PANTOPRAZOLE 40 MG TABLET PO SCH (09:10)
[2021-02-14] MEDS: NICOTINE 21MG/24HR PATCH TRANSDERM PRN (09:11)
--- NOTE | 2021-02-14 09:54 | P.PN ---
Progress Note - Text Progress Note Date: 02/14/21 Interval History: Patient was seen lying in his bed this morning and refused to get out of bed to speak with magnetic tape typewriter operator. He appears to have improvement in his impulse control. He was fairly concrete and disinterested in conversing today. He states that he had nightmares last night when asked about his sleep. He claims that his mood is "fine" however does complain of mild anxiety. Patient appears to have mild improvement in his hygiene and grooming today. At this time patient denies any suicidal or homical ideations, intent or plan. Patient denies any auditory, visual hallucinations. Patient denies any side effects from the medications and has been compliant with meds. Mental Status Exam: General Appearance: Patient appears to be stated age is alert, superficially cooperative. Patient appears to have improving hygiene and grooming. Multiple tattoos Behavior: Patient is laying in his bed without any agitated behavior. Speech: Patient's speech is spontaneous, normal in volume, nonpressured. Mood/Affect: Patient reports their mood is "ok but anxious", Affect is constricted Suicidality/Homicidality: Patient denies having any homicidal ideation intent or plan. Denies any suicidal ideations intent or plan Perceptions: Patient denies any visual hallucinations and denies any auditory hallucinations Though content/process: Patient is bizarre, improving mildly. guarded. Delusional. [place] Memory and concentration: AOX3, grossly intact for the purposes of this session. Judgment and insight: Very poor and impulsive, improving mildly Assessment Schizoaffective disorder, bipolar type Methamphetamine abuse Cannabis use disorder Nicotine dependence Plan: -Patient continues to meet criteria for inpatient psychiatric admission for symptom stabilization and safety. Patient has not signed adult voluntary form and medication consent and was placed in patient's chart. He is on active treatment order until 05/15/2021 and also on an active substance abuse treatment order. -Medications: Continue Zoloft 100 mg daily for mood/anxiety, Lamictal 100 mg 2 times a day for mood stabilization. Patient is currently on Haldol Decanoate 125 mg every 2 weeks with his next dose due on 02/14/21. Benadryl 25mg qhs prn for insomnia -When necessary Ativan and Haldol for agitation/aggression. -NRT - nicotine patch -SW on board for discharge planning. Encouraged the patient to participate in milieu. due to patients frequent rehopsitalizations, poor compliance with meds and rehab I would recommend that we meet with [facility] and federal judge to discuss patients case and possibly determine if patient should be transferred to [place] for intermediate care.
[2021-02-14] MEDS: LORazepam 1 MG TAB PO PRN (18:43)
[2021-02-15] MEDS: SERTRALINE 100 MG TAB PO SCH (09:21)
[2021-02-15] MEDS: lamoTRIgine 100 MG TAB PO SCH ×2 (09:21→21:28)
[2021-02-15] MEDS: PANTOPRAZOLE 40 MG TABLET PO SCH (09:21)
[2021-02-15] MEDS: NICOTINE 21MG/24HR PATCH TRANSDERM PRN (09:22)
--- NOTE | 2021-02-15 12:43 | P.PN ---
Progress Note - Text Progress Note Date: 02/15/21 Interval History: Patient was seen lying in his bed this morning and is agreeable to speak to wr iter at the bedside. He appears to have improvement in his impulse control and was more appropriately with brighter today. He was more awake and claims that his mood is been gradually improving. He is denying any depression or anxiety today. He claims that he slept a bit better last night. He was not endorsing any delusions today however did state that he really wants to be discharged. He continues to have superficial insight into his condition and need for treatment. Patient appears to have mild improvement in his hygiene and grooming today. At this time patient denies any suicidal or homical ideations, intent or plan. Patient denies any auditory, visual hallucinations. Patient denies any side effects from the medications and has been compliant with meds. Mental Status Exam: General Appearance: Patient appears to be stated age is alert, superficially cooperative. Patient appears to have improving hygiene and grooming. Multiple tattoos Behavior: Patient is laying in his bed without any agitated behavior. Speech: Patient's speech is spontaneous, normal in volume, nonpressured. Mood/Affect: Patient reports their mood is "ok", Affect is constricted Suicidality/Homicidality: Patient denies having any homicidal ideation intent or plan. Denies any suicidal ideations intent or plan Perceptions: Patient denies any visual hallucinations and denies any auditory hallucinations Though content/process: Patient is bizarre, improving mildly. more appropriate. [place] Memory and concentration: AOX3, grossly intact for the purposes of this session. Judgment and insight: Chronically poor, improving mildly Assessment Schizoaffective disorder, bipolar type Methamphetamine abuse Cannabis use disorder Nicotine dependence Plan: -Patient continues to meet criteria for inpatient psychiatric admission for symptom stabilization and safety. Patient has not signed adult voluntary form and medication consent and was placed in patient's chart. He is on active treatment order until 05/15/2021 and also on an active substance abuse treatment order. -Medications: Continue Zoloft 100 mg daily for mood/anxiety, Lamictal 100 mg 2 times a day for mood stabilization. Patient is currently on Haldol Decanoate 125 mg every 2 weeks with his next dose due on 02/14/21. Benadryl 25mg qhs prn for insomnia -When necessary Ativan and Haldol for agitation/aggression. -NRT - nicotine patch - on board for discharge planning. Encouraged the patient to participate in milieu. Patient will be discharged to halfway as soon as a bed opens up. [facility] will review further if patient is a candidate to be transferred to [place] afterwards
[2021-02-16 06:52] VITALS: BP 132/71; PULSE 75; TEMP 97.5
[2021-02-16] MEDS: SERTRALINE 100 MG TAB PO SCH (08:53)
[2021-02-16] MEDS: lamoTRIgine 100 MG TAB PO SCH (08:53)
[2021-02-16] MEDS: NICOTINE 21MG/24HR PATCH TRANSDERM PRN (08:53)
[2021-02-16] MEDS: PANTOPRAZOLE 40 MG TABLET PO SCH (08:53)
--- NOTE | 2021-02-16 09:24 | P.DS ---
Providers Date of admission: 02/07/21 21:58 Expected date of discharge: 02/16/21 Attending physician: Lion Hughes MD Consults: 02/07/21 22:52 Consult Physician Routine Consulting Provider: Leonela Physician Consult Reason/Comments: H&P and medical Do you want consulting provider notified?: Yes Primary care physician: Stated None - Discharge Diagnosis(es) (1) Schizoaffective disorder, bipolar type Current Visit: Yes Status: Acute Priority: High (2) Methamphetamine abuse Current Visit: Yes Status: Acute Priority: High (3) Cannabis use disorder, mild, abuse Current Visit: Yes Status: Acute Priority: Medium (4) Nicotine dependence Current Visit: Yes Status: Acute Priority: Low Hospital Course: Admission HPI: Admission note was completed by program writer "Patient is a 45-year-old male with significant history of schizophrenia, depression, and anxiety with a history of multiple inpatient psychiatric hospitalizations admitted on a court order. Patient presented to the hospital yesterday on a pickup order escorted by the police. Patient apparently is on a active treatment order which expires 05/15/2021. Patient is also on an active substance use treatment order. Patient has a chronic history of schizophrenia polysubstance abuse and is currently on Haldol D IM 125 mg injections every 2 weeks and being followed by [facility]. Patient also has a history of substance abuse. Patient was recently admitted to the mental health unit last week and discharged last Saturday 01/27. Patient had a intake for rehab and he claims that he got into the cab however decided to not go to rehab and went to his friend's house instead. Patient claims that he has not been taking his medications and states that "I may have done a little bit of meth and weed". When asked more about what happened patient became guarded and evasive and states "it's none of your business doc". He appears to be disheveled in appearance and was fairly irritable with program writer. He was a poor historian. She made other bizarre comments and endorsed paranoia towards others including police. He refused to sign for medications. He states his sleep is poor and appetite is poor. He is currently denying any auditory or visual hallucinations or any active suicidal or homicidal ideations intent or plan." Hospital course: Upon admission to the unit patient was initially bizarre and psychotic. Patient was however already on a active treatment order until 05/15/2021 and also on an active substance abuse treatment under. Patient was initially bizarre and isolative however with treatment patient got along well with other patients on the unit and followed unit protocol. Patient was compliant with the medications and denied any side effects throughout hospital course. Patient was started on Lamictal 100 mg twice a day for mood stabilization, Zoloft 100 mg daily for mood/anxiety, Haldol decanoate 125 mg every 2 weeks and received his last dose on 02/14/21 and will be due for his next dose on 02/28/21. Patient was also started on Benadryl 25 mg daily at bedtime for insomnia. Patient spoke of his stressors and engaged in therapy both group and individual. Patient was also seen by medical team for history and physical exam. Throughout the course of the hospitalization patient gradually improved with regards to mood, anxiety, psychosis, sleep and returned back to his baseline level of functioning. On the day of discharge patient denied any suicidal or homicidal ideations intent or plan denied any auditory or visual hallucinations. Patient endorsed wanting to live for his future. The patient denied any access to guns or weapons. Patient denied any paranoia and did not endorse any delusions. Patient does have a significant history of substance abuse and was counseled on abstaining from all substances including alcohol and marijuana. Due to patient having multiple hospitalizations and recurrently violating the substance abuse order, Dr. Fernandes at [facility] will review patients case further to see if patient will meet criteria for fdc psychiatric hospitalization at [place]. Until then patient will be transferred to [facility] upon discharge. Patient was also counseled on the medications and need for regular compliance and was encouraged to follow-up with their outpatient appointment for mental health and also for primary care. Mental status exam: General Appearance: Patient appears to be thin, multiple tattoos, stated age is alert, pleasant, and attempts to be cooperative. Patient is in no acute distress and has improved hygiene and grooming Behavior: Patient is calmly seated without any agitated behavior. Speech: Patient's speech is fluent and nonpressured. Mood/Affect: Patient reports their mood is "better", affect is congruent Suicidality/Homicidality: Patient denies having any suicidal or homicidal ideation intent or plan. Perceptions: Patient denies any auditory or visual hallucinations. Though content/process: Rambles at times, more logical today. Not endorsing any paranoia or delusions. Memory and concentration: AOX3, grossly intact for the purposes of this session. Can spell "WORLD" backwards correctly. Judgment and insight: chronically poor, however has improved with guarded prognosis Impression: Schizoaffective disorder, bipolar type Methamphetamine abuse Cannabis use disorder Nicotine dependence Plan: -Continue with discharge today as patient has improved and stabilized psychiatrically and is not currently an imminent threat to himself and/or others. Patient will remain at chronically elevated risk for harm to self and/or others due to his impulsivity and polysubstance abuse. -Continue medications: Haldol decanoate 125 mg every 2 weeks and received his last dose on 02/14/21 and will be due for his next dose on 02/28/21. Continue with Benadryl 25 mg daily at bedtime for insomnia, Zoloft 100 mg daily for mood/anxiety, Lamictal 100 mg twice a day for mood stabilization -Patient was counseled on the need for medication compliance and appropriate follow-up at mental health and also primary care for medical issues. Patient verbalized understanding and agreed. -Social work to coordinate with [facility] and marquita patients discharge today as he will be going to [facility]. Social work also to arrange for patients follow up appointments with [facility] for psychiatric care along with follow up with primary care provider. -Patient counseled on abstaining from recreational drugs and marijuana and alcohol. Was informed/educated on the adverse effects on their physical and mental health. Patient verbally agreed and understood. -Patient was instructed to return to the hospital or seek immediate medical care if their psychiatric or medical symptoms do worsen or reoccur. Allergies Allergy/AdvReac Type Severity Reaction Status Date / Time cat dander Allergy Itching Verified 02/07/21 16:21 fluphenazine [From Prolixin] AdvReac seizures Verified 02/07/21 16:21 oxcarbazepine AdvReac seizures Verified 02/07/21 16:21 [From Trileptal] paliperidone [From Invega] AdvReac delusional Verified 02/07/21 16:21 risperidone [From Risperdal] AdvReac seizures Verified 02/07/21 16:21 Laboratory Results WBC 6.7 k/uL (3.8-10.6) 02/08/21 06:45 RBC 4.95 m/uL (4.30-5.90) 02/08/21 06:45 Hgb 13.9 gm/dL (13.0-17.5) 02/08/21 06:45 Hct 43.8 % (39.0-53.0) 02/08/21 06:45 MCV 88.6 fL (80.0-100.0) 02/08/21 06:45 MCH 28.0 pg (25.0-35.0) 02/08/21 06:45 MCHC 31.6 g/dL (31.0-37.0) 02/08/21 06:45 RDW 15.6 % (11.5-15.5) H 02/08/21 06:45 Plt Count 261 k/uL (150-450) 02/08/21 06:45 MPV 6.8 02/08/21 06:45 Neutrophils % 70 % 02/08/21 06:45 Lymphocytes % 15 % 02/08/21 06:45 Monocytes % 7 % 02/08/21 06:45 Eosinophils % 5 % 02/08/21 06:45 Basophils % 1 % 02/08/21 06:45 Neutrophils # 4.7 k/uL (1.3-7.7) 02/08/21 06:45 Lymphocytes # 1.0 k/uL (1.0-4.8) 02/08/21 06:45 Monocytes # 0.5 k/uL (0-1.0) 02/08/21 06:45 Eosinophils # 0.3 k/uL (0-0.7) 02/08/21 06:45 Basophils # 0.1 k/uL (0-0.2) 02/08/21 06:45 Sodium 140 mmol/L (137-145) 02/08/21 06:45 Potassium 3.9 mmol/L (3.5-5.1) 02/08/21 06:45 Chloride 108 mmol/L (98-107) H 02/08/21 06:45 Carbon Dioxide 25 mmol/L (22-30) 02/08/21 06:45 Anion Gap 7 mmol/L 02/08/21 06:45 BUN 16 mg/dL (9-20) 02/08/21 06:45 Creatinine 0.93 mg/dL (0.66-1.25) 02/08/21 06:45 Est GFR (CKD-EPI)AfAm >90 (>60 ml/min/1.73 sqM) 02/08/21 06:45 Est GFR (CKD-EPI)NonAf >90 (>60 ml/min/1.73 sqM) 02/08/21 06:45 Glucose 64 mg/dL (74-99) L 02/08/21 06:[address] Glu mg/dL 114 02/08/21 06:45 Hemoglobin A1c 5.6 % (4.0-6.0) 02/08/21 06:45 Calcium 9.0 mg/dL (8.4-10.2) 02/08/21 06:45 Total Bilirubin 0.7 mg/dL (0.2-1.3) 02/08/21 06:45 AST 63 U/L (17-59) H 02/08/21 06:45 ALT 69 U/L (4-49) H 02/08/21 06:45 Alkaline Phosphatase 90 U/L (38-126) 02/08/21 06:45 Total Protein 6.7 g/dL (6.3-8.2) 02/08/21 06:45 Albumin 4.0 g/dL (3.5-5.0) 02/08/21 06:45 Triglycerides 56.0 mg/dL (0.0-149.0) 02/08/21 06:45 Cholesterol 125 mg/dL (0-200) 02/08/21 06:45 LDL Cholesterol, Calc 72.8 mg/dL (0.0-131.0) 02/08/21 06:45 VLDL Cholesterol, Calc 11.20 mg/dL (5.00-40.00) 02/08/21 06:45 HDL Cholesterol 41.0 mg/dL (40.0-60.0) 02/08/21 06:45 Cholesterol/HDL Ratio 3.05 02/08/21 06:45 TSH 0.104 mIU/L (0.465-4.680) L 02/08/21 06:45 Free T4 1.36 ng/dL (0.78-2.19) 06/09/21 06:59 Total T3 112.0 ng/dL (60.0-180.0) 02/08/21 06:59 Coronavirus (PCR) Not Detected (Not Detectd) 02/07/21 16:37 Vital Signs Temp 97.5 F L 02/16/21 06:26 Pulse 75 02/16/21 06:26 Resp 16 02/16/21 06:26 BP 132/71 02/16/21 06:26 Pulse Ox 96 02/10/21 16:02 Patient Condition at Discharge: Stable Plan - Discharge Summary Discharge Rx Participant: No New Discharge Prescriptions: New Pantoprazole [Protonix] 40 mg PO AC-BRKFST 30 Days tablet. Continue Haloperidol Decanoate [Haldol D] 125 mg IM [id number] #1 vial lamoTRIgine [LaMICtal] 100 mg PO BID 30 Days tab Sertraline [Zoloft] 100 mg PO DAILY 30 Days tab Changed diphenhydrAMINE [Benadryl] 25 mg PO HS 30 Days cap Nicotine 21Mg/24Hr Patch [Habitrol] 1 patch TRANSDERM DAILY PRN 30 Days patch PRN Reason: Nicotine Cravings Discontinued Omeprazole [PriLOSEC] 40 mg PO DAILY 30 Days cap Discharge Medication List Haloperidol Decanoate [Haldol D] 125 mg IM [id number] #1 vial 02/16/21 [Rx] Nicotine 21Mg/24Hr Patch [Habitrol] 1 patch TRANSDERM DAILY PRN 30 Days patch 02/16/21 [Rx] Pantoprazole [Protonix] 40 mg PO AC-BRKFST 30 Days tablet. 02/16/21 [Rx] Sertraline [Zoloft] 100 mg PO DAILY 30 Days tab 02/16/21 [Rx] diphenhydrAMINE [Benadryl] 25 mg PO HS 30 Days cap 02/16/21 [Rx] lamoTRIgine [LaMICtal] 100 mg PO BID 30 Days tab 02/16/21 [Rx] Follow up Appointment(s)/Referral(s): [facility] [Outside] - 02/16/21 11:30 am (02-16-21 with ACT team at [facility] 02-20-21 @ 3:[address] Fernandes at [facility] offic) Patient Instructions/Handouts: How to Stop Smoking (DC), Depression (DC), Schizophrenia (DC), Separation Anxiety Disorder (DC) Discharge Disposition: OTHER INSTITUTION NOT DEFINED
== END 2021-02-16 11:47 | disposition home or self-care (01) | DRG 885 ==
LOC: EC 14:18 → 3MHU 21:58
PROVIDERS: ADMIT Psychiatry & Neurology Psychiatry; ATTEND Psychiatry & Neurology Psychiatry
DX: F25.0 Schizoaffective disorder, bipolar type (principal); F12.10 Cannabis abuse, uncomplicated; F15.10 Other stimulant abuse, uncomplicated; F17.200 Nicotine dependence, unspecified, uncomplicated; F41.9 Anxiety disorder, unspecified; G40.909 Epilepsy, unspecified, not intractable, without status epilepticus; G47.00 Insomnia, unspecified; J44.9 Chronic obstructive pulmonary disease, unspecified; M41.9 Scoliosis, unspecified; Z79.899 Other long term (current) drug therapy; Z20.822 Contact with and (suspected) exposure to COVID-19
CPT/HCPCS: 80053; 80061; 82075; 83036; 84439; 84443; 84480; 85025; 87635; 99285

== ENCOUNTER 2021-02-18 03:52 | Emergency (ER) | payer MEDICARE, OTHER ==
[2021-02-18 04:09] VITALS: TEMP 97.6
[2021-02-18 04:28] LABS: Appearance,Urine Clear (Clear); Bilirubin,Urine Negative (Negative); Blood,Urine Negative (Negative); Color,Urine Light Yellow; Glucose,Urine (UA) Negative (Negative); Ketones,Urine Negative (Negative); Leukocyte Esterase,Urine Negative (Negative); Nitrite,Urine Negative (Negative); Protein,Urine Negative (Negative); Specific Gravity,Urine 1.003 (1.001-1.035); Urobilinogen,Urine <2.0 mg/dL (<2.0)
[2021-02-18 04:38] LABS: Amphetamine Screen,Urine Not Detected (NotDetected); Barbiturate Screen,Urine Not Detected (NotDetected); Benzodiazepines Screen,Urine Not Detected (NotDetected); Cocaine Screen,Urine Not Detected (NotDetected); Methadone Screen, Urine Not Detected (NotDetected); Opiate Screen,Urine Not Detected (NotDetected); Oxycodone Screen, Urine Not Detected (NotDetected); Phencyclidine Screen,Urine Not Detected (NotDetected); Tricyclic Antidepressant,Urine Not Detected (NotDetected); Urn Cannabinoid Scrn Not Detected (NotDetected)
--- NOTE | 2021-02-18 05:00 | ED ---
Psych HPI - General Chief Complaint: Psychiatric Symptoms Stated Complaint: Mental Health Time Seen by Provider: 02/18/21 04:12 Source: EMS Mode of arrival: ambulatory - History of Present Illness MD Complaint: other (Auditory and visual hallucinations.) -: hour(s) Associated Psychiatric Symptoms: racing thoughts History of same: Yes Quality: intermittent Improves With: none Worsens With: none - Related Data Previous Rx's Medication Instructions Recorded Haloperidol Decanoate [Haldol D] 125 mg IM [id number] #1 vial 02/16/21 Nicotine 21Mg/24Hr Patch [Habitrol] 1 patch TRANSDERM DAILY PRN 30 02/16/21 Days patch Pantoprazole [Protonix] 40 mg PO AC-BRKFST 30 Days 02/16/21 tablet. Sertraline [Zoloft] 100 mg PO DAILY 30 Days tab 02/16/21 diphenhydrAMINE [Benadryl] 25 mg PO HS 30 Days cap 02/16/21 lamoTRIgine [LaMICtal] 100 mg PO BID 30 Days tab 02/16/21 Allergies Allergy/AdvReac Type Severity Reaction Status Date / Time cat dander Allergy Itching Verified 02/18/21 04:09 fluphenazine [From Prolixin] AdvReac seizures Verified 02/18/21 04:09 oxcarbazepine AdvReac seizures Verified 02/18/21 04:09 [From Trileptal] paliperidone [From Invega] AdvReac delusional Verified 02/18/21 04:09 risperidone [From Risperdal] AdvReac seizures Verified 02/18/21 04:09 Review of Systems ROS Statement: Those systems with pertinent positive or pertinent negative responses have been documented in the HPI. ROS Other: All systems not noted in ROS Statement are negative. Constitutional: Denies: fever Respiratory: Denies: cough, dyspnea Cardiovascular: Denies: chest pain, palpitations Gastrointestinal: Denies: abdominal pain, vomiting Genitourinary: Denies: dysuria Musculoskeletal: Denies: back pain Skin: Denies: rash Neurological: Denies: headache, weakness, confusion Psychiatric: Reports: anxiety, auditory hallucinations, visual hallucinations. Denies: homicidal thoughts, suicidal thoughts Past Medical History Past Medical History: GERD/Reflux, Musculoskeletal Disorder, Seizure Disorder Additional Past Medical History / Comment(s): scoliosis, herpes, hiatal hernia, migraines, Hepatitis C History of Any Multi-Drug Resistant Organisms: None Reported Past Surgical History: No Surgical Hx Reported Additional Past Surgical History / Comment(s): EGD Past Anesthesia/Blood Transfusion Reactions: No Reported Reaction Past Psychological History: Anxiety, Bipolar, Depression, Schizoaffective Disorder Smoking Status: Current every day smoker Past Alcohol Use History: None Reported Past Drug Use History: Cocaine, Marijuana, Methamphetamine - Past Family History Mother History Unknown: Yes Additional Family Medical History / Comment(s): from suicide attempt Father History Unknown: Yes Additional Family Medical History / Comment(s): Reports that he is currently in the stages of dying- but wont clarify further. Inititally the patient stated his father was . General Exam Limitations: no limitations General appearance: alert, in no apparent distress Head exam: Present: atraumatic, normocephalic Eye exam: Present: normal appearance. Absent: scleral icterus, conjunctival injection ENT exam: Present: normal oropharynx Neck exam: Present: normal inspection Respiratory exam: Present: normal lung sounds bilaterally. Absent: respiratory distress, wheezes, rales, rhonchi, stridor Cardiovascular Exam: Present: regular rate, normal rhythm, normal heart sounds. Absent: systolic murmur, diastolic murmur, rubs, gallop GI/Abdominal exam: Present: soft. Absent: tenderness, guarding, rebound Neurological exam: Present: alert, normal gait Psychiatric exam: Present: anxious. Absent: depressed, manic, homicidal ideation, suicidal ideation Skin exam: Present: warm, dry, intact, normal color. Absent: rash Course Vital Signs 02/18/21 02/18/21 04:04 05:44 Temperature 97.6 F Pulse Rate 102 H 87 Respiratory 18 20 Rate Blood Pressure 136/91 143/91 O2 Sat by Pulse 97 98 Oximetry Medical Decision Making - Medical Decision Making Subsequent history did reveal that the patient had taken hallucinogenic street drugs. Patient seen by EPS and is elaine for safety. - Lab Data Lab Results 02/18/21 Range/Units 04:21 Urine Color Light Yellow Urine Appearance Clear (Clear) Urine pH 7.0 (5.0-8.0) Ur Specific [place] 1.003 (1.001-1.035) Urine Protein Negative (Negative) Urine Glucose (UA) Negative (Negative) Urine Ketones Negative (Negative) Urine Blood Negative (Negative) Urine Nitrite Negative (Negative) Urine Bilirubin Negative (Negative) Urine Urobilinogen <2.0 (<2.0) mg/dL Ur Leukocyte Esterase Negative (Negative) Urine Opiates Screen Not Detected (NotDetected) Ur Oxycodone Screen Not Detected (NotDetected) Urine Methadone Screen Not Detected (NotDetected) Ur Propoxyphene Screen Not Detected (NotDetected) Ur Barbiturates Screen Not Detected (NotDetected) U Tricyclic Antidepress Not Detected (NotDetected) Ur Phencyclidine Scrn Not Detected (NotDetected) Ur Amphetamines Screen Not Detected (NotDetected) U Methamphetamines Scrn Not Detected (NotDetected) U Benzodiazepines Scrn Not Detected (NotDetected) Urine Cocaine Screen Not Detected (NotDetected) U Marijuana (THC) Screen Not Detected (NotDetected) Disposition Clinical Impression: Polysubstance abuse Disposition: HOME SELF-CARE Condition: Good Instructions (If sedation given, give patient instructions): Polysubstance Abuse (ED) Is patient prescribed a controlled substance at d/c from ED?: No Referrals: [facility] [Primary Care Provider] - 1-2 days
[2021-02-18 05:45] VITALS: BP 143/91; PULSE 87; RESP 20
== END 2021-02-18 05:53 | disposition home or self-care (01) ==
LOC: EC 03:52
DX: F19.10 Other psychoactive substance abuse, uncomplicated (principal); K21.9 Gastro-esophageal reflux disease without esophagitis; G40.909 Epilepsy, unspecified, not intractable, without status epilepticus; G43.909 Migraine, unspecified, not intractable, without status migrainosus; F31.9 Bipolar disorder, unspecified; F41.9 Anxiety disorder, unspecified; F25.9 Schizoaffective disorder, unspecified; F17.200 Nicotine dependence, unspecified, uncomplicated; F14.90 Cocaine use, unspecified, uncomplicated; F12.90 Cannabis use, unspecified, uncomplicated; F15.90 Other stimulant use, unspecified, uncomplicated
CPT/HCPCS: 80306; 81003; 82075; 99284

== ENCOUNTER 2021-02-18 22:09 | Inpatient (IN) | payer MEDICARE, MEDICAID ==
--- NOTE | 2021-02-18 23:05 | ED ---
Psych HPI - General Chief Complaint: Psychiatric Symptoms Stated Complaint: mental health Time Seen by Provider: 02/18/21 22:24 Source: patient Mode of arrival: ambulatory - History of Present Illness Initial Comments: This patient is a 45-year-old man who presents to have psychiatric evaluation. The patient states that he feels bad because he is getting people just by thinking about it. MD Complaint: feels depressed, other -: days(s) Associated Psychiatric Symptoms: auditory hallucinations, delusions History of same: Yes Quality: constant Improves With: none Worsens With: none - Related Data Previous Rx's Medication Instructions Recorded Haloperidol Decanoate [Haldol D] 125 mg IM [id number] #1 vial 02/16/21 Nicotine 21Mg/24Hr Patch [Habitrol] 1 patch TRANSDERM DAILY PRN 30 02/16/21 Days patch Pantoprazole [Protonix] 40 mg PO AC-BRKFST 30 Days 02/16/21 tablet. Sertraline [Zoloft] 100 mg PO DAILY 30 Days tab 02/16/21 diphenhydrAMINE [Benadryl] 25 mg PO HS 30 Days cap 02/16/21 lamoTRIgine [LaMICtal] 100 mg PO BID 30 Days tab 02/16/21 Allergies Allergy/AdvReac Type Severity Reaction Status Date / Time cat dander Allergy Itching Verified 02/18/21 22:18 fluphenazine [From Prolixin] AdvReac seizures Verified 02/18/21 22:18 oxcarbazepine AdvReac seizures Verified 02/18/21 22:18 [From Trileptal] paliperidone [From Invega] AdvReac delusional Verified 02/18/21 22:18 risperidone [From Risperdal] AdvReac seizures Verified 02/18/21 22:18 Review of Systems ROS Statement: Those systems with pertinent positive or pertinent negative responses have been documented in the HPI. ROS Other: All systems not noted in ROS Statement are negative. Constitutional: Denies: fever, chills Respiratory: Denies: cough, dyspnea Cardiovascular: Denies: chest pain, palpitations Gastrointestinal: Denies: abdominal pain, vomiting, diarrhea Neurological: Denies: headache, weakness Psychiatric: Reports: anxiety, depression, auditory hallucinations. Denies: homicidal thoughts, suicidal thoughts Past Medical History Past Medical History: GERD/Reflux, Musculoskeletal Disorder, Seizure Disorder Additional Past Medical History / Comment(s): scoliosis, herpes, hiatal hernia, migraines, Hepatitis C History of Any Multi-Drug Resistant Organisms: None Reported Past Surgical History: No Surgical Hx Reported Additional Past Surgical History / Comment(s): EGD Past Anesthesia/Blood Transfusion Reactions: No Reported Reaction Past Psychological History: Anxiety, Bipolar, Depression, Schizoaffective Disorder Smoking Status: Current every day smoker Past Alcohol Use History: None Reported Past Drug Use History: Cocaine, Marijuana, Methamphetamine - Past Family History Mother History Unknown: Yes Additional Family Medical History / Comment(s): from suicide attempt Father History Unknown: Yes Additional Family Medical History / Comment(s): Reports that he is currently in the stages of dying- but wont clarify further. Inititally the patient stated his father was . General Exam Limitations: no limitations General appearance: alert, in no apparent distress Head exam: Present: atraumatic, normocephalic Eye exam: Present: normal appearance Respiratory exam: Present: normal lung sounds bilaterally. Absent: respiratory distress, wheezes, rales, rhonchi, stridor Cardiovascular Exam: Present: regular rate, normal rhythm, normal heart sounds. Absent: systolic murmur, diastolic murmur, rubs, gallop GI/Abdominal exam: Present: soft. Absent: distended, tenderness, guarding, rebound Neurological exam: Present: alert, normal gait Psychiatric exam: Present: other (Describes delusional thought content). Absent: agitated, flat affect, manic, homicidal ideation, suicidal ideation Skin exam: Present: warm, dry, intact, normal color. Absent: rash Course Vital Signs 02/18/21 02/19/21 22:12 02:12 Temperature 97.9 F 98.3 F Pulse Rate 107 H Pulse Rate [ 97 Right Sitting] Respiratory 18 16 Rate Blood Pressure 137/91 Blood Pressure 127/82 [Right Arm Sitting] O2 Sat by Pulse 95 95 Oximetry Medical Decision Making - Lab Data Result diagrams: 02/19/21 10:59 02/19/21 10:59 Lab Results 02/19/21 02/19/21 Range/Units 00:48 00:48 Urine Opiates Screen Not Detected (NotDetected) Ur Oxycodone Screen Not Detected (NotDetected) Urine Methadone Screen Not Detected (NotDetected) Ur Propoxyphene Screen Not Detected (NotDetected) Ur Barbiturates Screen Not Detected (NotDetected) U Tricyclic Antidepress Not Detected (NotDetected) Ur Phencyclidine Scrn Not Detected (NotDetected) Ur Amphetamines Screen Not Detected (NotDetected) U Methamphetamines Scrn Not Detected (NotDetected) U Benzodiazepines Scrn Not Detected (NotDetected) Urine Cocaine Screen Not Detected (NotDetected) U Marijuana (THC) Screen Detected H (NotDetected) Coronavirus (PCR) Not Detected (Not Detectd) Disposition Clinical Impression: Polysubstance abuse, Acute psychosis Disposition: TRANSFER TO PSYCH HOSP/UNIT Condition: Fair
[2021-02-19 01:09] LABS: Amphetamine Screen,Urine Not Detected (NotDetected); Barbiturate Screen,Urine Not Detected (NotDetected); Benzodiazepines Screen,Urine Not Detected (NotDetected); Cocaine Screen,Urine Not Detected (NotDetected); Methadone Screen, Urine Not Detected (NotDetected); Opiate Screen,Urine Not Detected (NotDetected); Oxycodone Screen, Urine Not Detected (NotDetected); Phencyclidine Screen,Urine Not Detected (NotDetected); Tricyclic Antidepressant,Urine Not Detected (NotDetected); Urn Cannabinoid Scrn Detected (NotDetected)
[2021-02-19] MEDS ORDERED: MAG HYDROX/AL HYDROX/SIMETH 30 ML CUP PO PRN (01:49)
[2021-02-19] MEDS ORDERED: MAGNESIUM HYDROXIDE 2,400 MG/10 ML CUP PO PRN (01:49)
[2021-02-19] MEDS ORDERED: LORazepam 2 MG/ML INJ IM PRN (01:53)
[2021-02-19] MEDS ORDERED: HALOPERIDOL LACTATE 5 MG/ML 1 ML VIAL IM PRN (01:54)
[2021-02-19] MEDS: NICOTINE 14MG/24HR PATCH TRANSDERM SCH ×2 (09:17→09:20)
[2021-02-19] MEDS: SERTRALINE 100 MG TAB PO SCH (09:17)
[2021-02-19] MEDS: PANTOPRAZOLE 40 MG TABLET PO SCH (09:17)
[2021-02-19] MEDS: lamoTRIgine 100 MG TAB PO SCH ×2 (09:17→21:06)
[2021-02-19 11:46] LABS: ALT 51 U/L (4-49); AST 46 U/L (17-59); African American GFR (CKD) >90 (>60 ml/min/1.73 sqM); Albumin 3.9 g/dL (3.5-5.0); Alkaline Phosphatase 79 U/L (38-126); Anion Gap 7 mmol/L; Blood Urea Nitrogen 12 mg/dL (9-20); Calcium 9.2 mg/dL (8.4-10.2); Carbon Dioxide 25 mmol/L (22-30); Chloride 112 mmol/L (98-107); Glucose 97 mg/dL (74-99); Non-African American GFR(CKD) >90 (>60 ml/min/1.73 sqM); Potassium 4.5 mmol/L (3.5-5.1); Sodium 144 mmol/L (137-145); Total Bilirubin 0.2 mg/dL (0.2-1.3)
[2021-02-19 11:58] LABS: Basophils # (A) 0.1 k/uL (0-0.2); Basophils % (A) 1 %; Eosinophils # (A) 0.4 k/uL (0-0.7); Eosinophils % (A) 7 %; HCT 42.2 % (39.0-53.0); HGB 14.3 gm/dL (13.0-17.5); Lymphocytes # (A) 1.5 k/uL (1.0-4.8); Lymphocytes % (A) 23 %; MCH 29.2 pg (25.0-35.0); Mean Platelet Volume 6.5; Monocytes # (A) 0.5 k/uL (0-1.0); Monocytes % (A) 7 %; Neutrophils # (A) 3.9 k/uL (1.3-7.7); Neutrophils % (A) 61 %; Platelet Count 253 k/uL (150-450); RBC 4.91 m/uL (4.30-5.90); WBC 6.4 k/uL (3.8-10.6)
--- NOTE | 2021-02-19 18:52 | HP ---
HISTORY AND PHYSICAL IDENTIFYING DATA: The patient is a 45-year-old male. He has had recent past psychiatric hospitalizations including in this facility on 02/07/2021. He is readmitted and is under a treatment order. CHIEF COMPLAINT: The patient walked to the ED complaining of having hallucinations and horrifying delusions after having ingested psychedelics. HISTORY OF PRESENTING ILLNESS: The patient presents similar to his previous admissions. He has been living at [facility]. He has presented to the ED a number of times with complaints relating to alcohol and drug use. On the day of admission he presented to the ED at 0400 complaining of hallucinations and anxiety. He was able to contract for safety and discharged to home. He again presented yesterday at 11:00 pm stating that he was believing he was getting people just by thinking about them. He was very depressed. He was having auditory hallucinations and delusions. It is noted that the patient is followed by [facility] and currently has been on Haldol Decanoate 125 mg IM every 2 weeks. Noted that he had a previous admission from January 26 to February 03. At that time a plan was set up for him to take a cab to [place] to enter a substance abuse treatment program. When he departed the hospital, he declined taking a cab to [place]. He noted that this happened about 2:30 in the afternoon and he had several contacts with [facility] where they indicated that he needed to be at the facility by 3 o'clock or he would not be able to be admitted. He said that was the reason why he ended up not following through at that time. For his most recent admission, he was discharged on February 16 and had a follow-up appointment set up with [facility] on that day. Discharge psychotropic medications included Haldol Decanoate 125 mg IM and Benadryl 25 mg at bedtime. Today, the patient states that his biggest issue is that he continues to struggle with abusive substances. He says that he gets that he collects various natural items and then turns them into psychedelics. He was vague about specifics, though said one thing he used was picking out mushrooms that were growing outdoors around his house. He was unable to provide further details. He made the statement that he worries about making these drugs and then giving these drugs to various people, though again, he did not provide specifics. He said he has been sleeping poorly. He acknowledges hallucinations and delusional thoughts. He said he was very fearful about the voices that he was experiencing when he presented to the ED. He is admitted for further evaluation. SUBSTANCE USE HISTORY: As above. Plus I refer the reader to a number of his recent previous admissions to this facility. PAST MEDICAL HISTORY: GERD reflux, musculoskeletal disorder, seizure disorder, possible hepatitis C, recent low TSH. FAMILY AND SOCIAL HISTORY: I refer the reader to previous admission notes for details. The patient has been residing at [facility]. MENTAL STATUS EXAM: Patient sat at the far end of the table quite a distance from my desk. He gave fair eye contact. He had psychomotor slowing. He looks generally in my direction, though he seemed to look more often a distance than not. He answered questions with brief responses. His thoughts were clear. At times he made spontaneous comments about being distressed of his situation, which included experiencing hallucinations as well as feeling responsible for providing drugs to others. His affect was anxious. His mood depressed. He was moderately distressed. He indicated having auditory hallucinations and delusional thinking. He voiced no thoughts of harm to self or others. On cognitive exam, he did make an effort to answer formal cognitive questions. He was oriented and alert. He was able to provide information that was consistent with what is documented in the medical record. PHYSICAL EXAMINATION: As per medical consultation. ASSESSMENT: This 45-year-old male is readmitted on the basis of acute substance abuse issues complicated by psychotic symptoms. DIAGNOSIS: 1. Schizoaffective disorder, bipolar type. 2. Substance dependence and abuse including methamphetamines and cannabis. 3. Gastroesophageal reflux disease. 4. Musculoskeletal disorder. 5. Seizure disorder. 6. Suspected hepatitis C. 7. Recent low TSH. RECOMMENDATIONS: Patient will be admitted for comprehensive medical psychiatric and psychosocial evaluation. We will engage the patient in individual and group therapeutic activities. The patient will be continued on outpatient medications which include Zoloft 100 mg a day, Lamictal 100 mg twice a day and Haldol Decanoate. He received 125 mg IM Q 14 days with his next dose due 02/28/2021. I reviewed medication issues with the patient. We talked about the indications, potential side effects, concerns relating to metabolics and movement disorder issues as it relates to Haldol. We reviewed options for inpatient substance abuse treatment of which the patient was in agreement as an appropriate followup plan. We will focus on stabilization and discharge planning. MMLUIS FELIPEL / IJN: [id number] /
[2021-02-19] MEDS: diphenhydrAMINE 25 MG CAP PO SCH (21:06)
[2021-02-19 22:53] LABS: Hemoglobin A1C 5.7 % (4.0-6.0)
--- NOTE | 2021-02-19 22:53 | P.PN ---
Progress Note - Text Progress Note Date: 02/19/21 Patient refused to answer questions or be evaluated. Will attempt again tomorrow.
[2021-02-20] MEDS: PANTOPRAZOLE 40 MG TABLET PO SCH (08:50)
[2021-02-20] MEDS: NICOTINE 14MG/24HR PATCH TRANSDERM SCH (08:50)
[2021-02-20] MEDS: lamoTRIgine 100 MG TAB PO SCH ×2 (08:50→20:30)
[2021-02-20] MEDS: SERTRALINE 100 MG TAB PO SCH (08:50)
--- NOTE | 2021-02-20 12:51 | P.PN ---
Progress Note - Text Progress Note Date: 02/20/21 Interval History: Patient was seen wandering the hallways this morning and is agreeable to speak to service writer advisor in the office. Patient claims that he "took too many shrooms and potions" before he came in the hospital and stated that he had a "suicidal episode". He claims that he was feeling bizarre and losing control of his body. He appeared to be fairly directable today during conversation and was attempting to cooperate. He admits to mild depression and mild anxiety today. He states that he was able to sleep fairly last night. He was asking about his court date on Saturday. He continues to have superficial insight into his condition and need for treatment. Patient appears to have mild improvement in his hygiene and grooming today. At this time patient denies any suicidal or homical ideations, intent or plan. Patient denies any auditory, visual hallucinations. Patient denies any side effects from the medications and has been compliant with meds. Mental Status Exam: General Appearance: Patient appears to be stated age is alert, superficially cooperative. Patient appears to have improving hygiene and grooming. Multiple tattoos Behavior: Patient is laying in his bed without any agitated behavior. Speech: Patient's speech is spontaneous, normal in volume, nonpressured. Mood/Affect: Patient reports their mood is a bit depressed, Affect is constricted Suicidality/Homicidality: Patient denies having any homicidal ideation intent or plan. Denies any suicidal ideations intent or plan Perceptions: Patient denies any visual hallucinations and denies any auditory hallucinations Though content/process: Patient is bizarre. Multiple delusions. more appropriate. Memory and concentration: AOX3, grossly intact for the purposes of this session. Judgment and insight: Chronically poor Assessment Schizoaffective disorder, bipolar type Methamphetamine abuse Cannabis use disorder Nicotine dependence Plan: -Patient continues to meet criteria for inpatient psychiatric admission for symptom stabilization and safety. Patient has not signed medication consent and was placed in patient's chart. He is on active treatment order until 05/15/2021 and also on an active substance abuse treatment order. -Medications: Continue Zoloft 100 mg daily for mood/anxiety, Lamictal 100 mg 2 times a day for mood stabilization. Patient is currently on Haldol Decanoate 125 mg every 2 weeks with his next dose due on 6/29/21. Benadryl 25mg qhs prn for insomnia -When necessary Ativan and Haldol for agitation/aggression. -NRT - nicotine patch -SW on board for discharge planning. Encouraged the patient to participate in milieu. Patient's case will be reviewed by [facility] to determine eligibility for [facility] transfer.
[2021-02-20] MEDS: LORazepam 1 MG TAB PO PRN (12:55)
[2021-02-20] MEDS: diphenhydrAMINE 25 MG CAP PO SCH (20:31)
--- NOTE | 2021-02-21 01:08 | P.CONS ---
History of Present Illness - Reason for Consult Consult date: 02/21/21 - History of Present Illness Patient is a 45-year-old male with a PMH of schizophrenia, tobacco abuse, and polysubstance abuse who had presented to the emergency room due to delusions and suicidal ideation. The patient was admitted to the mental health unit where he was seen and evaluated. Patient reports that he currently feels better from when he initially came to the hospital. He reports that he was thinking of ki lling himself "by lethal injection". He denied any further suicidal ideation. He also denied any acute physical complaints. Denied chest discomfort, shortness of breath, fever, chills, nausea, vomiting, abdominal pain, diarrhea. Reports that he smokes half a pack of cigarettes daily. Also admitted to using hallucinogens. Review of systems: Pertinent positives and negatives as discussed in HPI, a complete review of systems was performed and all other systems are negative. Physical examination: General: non toxic, no distress, appears at stated age, normal weight Derm: no unusual rashes/lesions no unusual ecchymoses, warm, dry Head: atraumatic, normocephalic, symmetric Eyes: EOMI, no lid lag, anicteric sclera, pupils equal round reactive to light ENT: Nose and ears atraumatic, no thrush, no pharyngeal erythema Neck: No thyromegaly, no cervical lymphadenopathy, trachea midline, supple Mouth: no lip lesion, mucus membranes moist Cardiovascular: S1S2 reg, no murmur, positive posterior tibial pulse bilateral, no edema, capillary refill less than 2 seconds Lungs: CTA bilateral, no rhonchi, no rales , no accessory muscle use Abdominal: soft, nontender to palpation, no guarding, no appreciable organomegaly, normal bowel sounds Ext: no gross muscle atrophy, muscle strength 5 out of 5 in all 4 extremities grossly, no contractures, Neuro: CN II-XI grossly intact, light touch intact all 4 extremities, finger to nose within normal limits, Psych: Alert, oriented, somewhat pressured speech Assessment/plan Polysubstance and tobacco abuse -Advised on importance of cessation Psychosis and depression with suicidal ideation -As per psychiatry Thank you for allowing us to participate in the care of this patient. We will follow peripherally. Do not hesitate to contact us with questions. Someone can be reached from the [facility] hospitalist group at all hours of the day at [phone]. Past Medical History Past Medical History: GERD/Reflux, Musculoskeletal Disorder, Seizure Disorder Additional Past Medical History / Comment(s): scoliosis, herpes, hiatal hernia, migraines, Hepatitis C History of Any Multi-Drug Resistant Organisms: None Reported Past Surgical History: No Surgical Hx Reported Additional Past Surgical History / Comment(s): EGD Past Anesthesia/Blood Transfusion Reactions: No Reported Reaction Past Psychological History: Anxiety, Bipolar, Depression, Schizoaffective Disorder Smoking Status: Current every day smoker Past Alcohol Use History: None Reported Past Drug Use History: Cocaine, Marijuana, Methamphetamine - Past Family History Mother History Unknown: Yes Additional Family Medical History / Comment(s): from suicide attempt Father History Unknown: Yes Additional Family Medical History / Comment(s): Reports that he is currently in the stages of dying- but wont clarify further. Inititally the patient stated his father was . Medications and Allergies Home Medications Medication Instructions Recorded Confirmed Type Haloperidol Decanoate [Haldol D] 125 mg IM [id number] #1 vial 02/16/21 02/19/21 Rx Nicotine 21Mg/24Hr Patch [Habitrol] 1 patch TRANSDERM DAILY PRN 30 02/16/21 02/19/21 Rx Days patch Pantoprazole [Protonix] 40 mg PO [id number]-[id number] 30 Days 02/16/21 02/19/21 Rx tablet. Sertraline [Zoloft] 100 mg PO DAILY 30 Days tab 02/16/21 02/19/21 Rx diphenhydrAMINE [Benadryl] 25 mg PO HS 30 Days cap 02/16/21 02/19/21 Rx lamoTRIgine [LaMICtal] 100 mg PO BID 30 Days tab 02/16/21 02/19/21 Rx Allergies Allergy/AdvReac Type Severity Reaction Status Date / Time cat dander Allergy Itching Verified 02/18/21 22:18 fluphenazine [From Prolixin] AdvReac seizures Verified 02/18/21 22:18 oxcarbazepine AdvReac seizures Verified 02/18/21 22:18 [From Trileptal] paliperidone [From Invega] AdvReac delusional Verified 02/18/21 22:18 risperidone [From Risperdal] AdvReac seizures Verified 02/18/21 22:18 Physical Exam Vitals: Vital Signs Temp Pulse Resp BP 02/20/21 12:56 128 H 132/85 02/20/21 06:48 97.3 F L 99 16 129/63 Results CBC & Chem 7: 02/19/21 10:59 02/19/21 10:59
[2021-02-21] MEDS: SERTRALINE 100 MG TAB PO SCH (08:28)
[2021-02-21] MEDS: PANTOPRAZOLE 40 MG TABLET PO SCH (08:28)
[2021-02-21] MEDS: NICOTINE 14MG/24HR PATCH TRANSDERM SCH (08:28)
[2021-02-21] MEDS: lamoTRIgine 100 MG TAB PO SCH ×2 (08:28→20:49)
--- NOTE | 2021-02-21 09:00 | P.PN ---
Progress Note - Text Progress Note Date: 02/21/21 Interval History: Patient was seen wandering the hallways this morning and is agreeable to speak to narrative writer in the office. Patient that he is doing "okay" and continues to be bizarre at times. He was more directable during conversation today and appeared to be fairly calm. She asked questions about him possibly going to [facility] and states that he thinks that "my friend says that its heike crazy over there". He appeared to be fairly directable today during conversation and was attempting to cooperate. He admits to mild depression and mild anxiety today. He states that he was able to sleep fairly last night however was requesting to have his Benadryl discontinued as he claims that he was feeling drowsy this morning. He was asking about his court date on Saturday. He continues to have superficial insight into his condition and need for treatment. Patient appears to have mild improvement in his hygiene and grooming today. At this time patient denies any suicidal or homical ideations, intent or plan. Patient denies any auditory, visual hallucinations. Patient denies any side effects from the medications and has been compliant with meds. Mental Status Exam: General Appearance: Patient appears to be stated age is alert, superficially cooperative. Patient appears to have improving hygiene and grooming. Multiple tattoos Behavior: Patient is laying in his bed without any agitated behavior. Speech: Patient's speech is spontaneous, normal in volume, nonpressured. Mood/Affect: Patient reports their mood is improving mildly, Affect is constricted Suicidality/Homicidality: Patient denies having any homicidal ideation intent or plan. Denies any suicidal ideations intent or plan Perceptions: Patient denies any visual hallucinations and denies any auditory hallucinations Though content/process: Patient is bizarre. Multiple delusions, improving mildly. more appropriate. Memory and concentration: AOX3, grossly intact for the purposes of this session. Judgment and insight: Chronically poor Assessment Schizoaffective disorder, bipolar type Methamphetamine abuse Cannabis use disorder Nicotine dependence Plan: -Patient continues to meet criteria for inpatient psychiatric admission for symptom stabilization and safety. Patient has not signed medication consent and was placed in patient's chart. He is on active treatment order until 05/15/2021 and also on an active substance abuse treatment order. -Medications: Continue Zoloft 100 mg daily for mood/anxiety, Lamictal 100 mg 2 times a day for mood stabilization. Patient is currently on Haldol Decanoate 125 mg every 2 weeks with his next dose due on 02/28/21. -When necessary Ativan and Haldol for agitation/aggression. -NRT - nicotine patch -SW on board for discharge planning. Encouraged the patient to participate in milieu. Patient's case will be reviewed by [facility] to determine eligibility for [facility] transfer.
[2021-02-21] MEDS: LORazepam 1 MG TAB PO PRN (16:35)
[2021-02-22] MEDS: SERTRALINE 100 MG TAB PO SCH (09:28)
[2021-02-22] MEDS: NICOTINE 14MG/24HR PATCH TRANSDERM SCH (09:28)
[2021-02-22] MEDS: lamoTRIgine 100 MG TAB PO SCH ×2 (09:28→20:19)
[2021-02-22] MEDS: PANTOPRAZOLE 40 MG TABLET PO SCH (09:28)
--- NOTE | 2021-02-22 11:22 | P.PN ---
Progress Note - Text Progress Note Date: 02/22/21 Interval History: Patient was seen wandering the hallways this morning and is agreeable to speak to principal technical writer in the office. Patient states that he will be doing his court hearing in 20 minutes and claims that it is about his "treatment order". He spoke about a certain hand former at [facility] who has not been helping him and believes that she dislikes him. He also believes that the act team has been plotting against him. He was fairly directable today and appeared to have improving hygiene and groo ena. He has chronically poor insight and judgment. that he is doing "okay" and continues to be bizarre at times. He states that he was able to sleep fairly last night. At this time patient denies any suicidal or homical ideations, intent or plan. Patient denies any auditory, visual hallucinations. Patient denies any side effects from the medications and has been compliant with meds. Mental Status Exam: General Appearance: Patient appears to be stated age is alert, superficially cooperative. Patient appears to have improving hygiene and grooming. Multiple tattoos Behavior: Patient is laying in his bed without any agitated behavior. Speech: Patient's speech is spontaneous, normal in volume, nonpressured. Mood/Affect: Patient reports their mood is improving mildly, Affect is constricted Suicidality/Homicidality: Patient denies having any homicidal ideation intent or plan. Denies any suicidal ideations intent or plan Perceptions: Patient denies any visual hallucinations and denies any auditory hallucinations Though content/process: Patient is bizarre. Multiple delusions, improving mildly. more appropriate. Memory and concentration: AOX3, grossly intact for the purposes of this session. Judgment and insight: Chronically poor Assessment Schizoaffective disorder, bipolar type Methamphetamine abuse Cannabis use disorder Nicotine dependence Plan: -Patient continues to meet criteria for inpatient psychiatric admission for symptom stabilization and safety. Patient has not signed medication consent and was placed in patient's chart. He is on active treatment order until 05/15/2021 and also on an active substance abuse treatment order. -Medications: Continue Zoloft 100 mg daily for mood/anxiety, Lamictal 100 mg 2 times a day for mood stabilization. Patient is currently on Haldol Decanoate 125 mg every 2 weeks with his next dose due on 02/28/21. -When necessary Ativan and Haldol for agitation/aggression. -NRT - nicotine patch -SW on board for discharge planning. Encouraged the patient to participate in milieu. Patient's case is being reviewed by [facility] to determine eligibility for [facility] transfer.
[2021-02-22] MEDS: LORazepam 1 MG TAB PO PRN (12:05)
[2021-02-22] MEDS: ACETAMINOPHEN TAB 325 MG TAB PO PRN (20:56)
[2021-02-23] MEDS: lamoTRIgine 100 MG TAB PO SCH ×2 (08:26→20:11)
[2021-02-23] MEDS: SERTRALINE 100 MG TAB PO SCH (08:26)
[2021-02-23] MEDS: NICOTINE 14MG/24HR PATCH TRANSDERM SCH (08:26)
[2021-02-23] MEDS: PANTOPRAZOLE 40 MG TABLET PO SCH (08:26)
[2021-02-23] MEDS ORDERED: BENZTROPINE 2 MG/2 ML AMP IM ONE (09:00)
[2021-02-23] MEDS: ACETAMINOPHEN TAB 325 MG TAB PO PRN (19:32)
[2021-02-23] MEDS: LORazepam 1 MG TAB PO PRN (20:11)
--- NOTE | 2021-02-23 20:34 | PN ---
PROGRESS NOTE DATE OF SERVICE: 02/23/2021 CHIEF COMPLAINT: The patient walked to the ED complaining of having hallucinations and horrifying delusions after having ingested psychedelics. INTERVAL HISTORY: The patient continues to do fair. He had his court hearing yesterday on his petition. A court order was initiated. The patient was out in the day area quite a bit of the time. He tends to wander about. He will interact with others, though often he seems to be more caught up in his own thoughts than nothing else. He did attend two groups yesterday and one group the following. It was documented, "patient would leave and return to group. The patient has some restless legs and has a hard time sitting still. The patient did participate the entire time the group was going on. The patient was cooperative and compliant. The patient did not say a whole lot during the group." He slept fairly well last night. Today he has been up. He continues to do about the same. He can be quite intense at times. It is noted that he was able to talk today about the fact that he now has a court order for substance abuse treatment and states that he intends to follow through with that treatment. He acknowledges that during a recent previous admission he essentially walked away from treatment despite a referral set up for [place]. He said he would not do that at this time. He tends to appear fairly restless. He will engage in appropriate conversations. He has been accepting of his psychotropic medications and seems to tolerate his medications for the most part. It was noted that he does express a lot of restlessness, which he thinks is withdrawal from drugs. On the other hand, we discussed that some of this may relate to akathisia. He was willing to have a 1 time dose of Cogentin IM to test whether he would respond to an anticholinergic agent. MENTAL STATUS: Patient was quite restless as he sat. He gave fair eye contact. He answered questions with brief responses. He tended to ramble at times and was somewhat tangential. His affect was intense. He was cooperative. He had a somewhat reserved mood and seemed moderately distressed. It difficult to assess for thought disorder, though at times his thoughts did seem to be disorganized. He voiced no thoughts of harm. He was oriented to his circumstances and surroundings. ASSESSMENT: I will continue the current diagnosis and treatment plan. I will continue psychotropic medications the same including Zoloft 100 mg a day, Lamictal 100 mg twice a day and Haldol Decanoate. He received 125 mg every 14 days. We will assess to see whether he shows some response to Cogentin in terms of possible EPS symptoms. I reviewed medication issues with the patient. We also talked about discharge planning in regard to substance use issues. We will focus on stabilization and discharge planning. KONG / YOMI: [id number] /
[2021-02-24] MEDS: NICOTINE 14MG/24HR PATCH TRANSDERM SCH (08:24)
[2021-02-24] MEDS: lamoTRIgine 100 MG TAB PO SCH ×2 (08:25→20:33)
[2021-02-24] MEDS: PANTOPRAZOLE 40 MG TABLET PO SCH (08:25)
[2021-02-24] MEDS: SERTRALINE 100 MG TAB PO SCH (08:25)
[2021-02-24] MEDS: BENZTROPINE MESYLATE 1 MG TAB PO SCH ×2 (14:52→20:33)
--- NOTE | 2021-02-24 16:26 | PN ---
PROGRESS NOTE DATE OF SERVICE: 02/24/2021 CHIEF COMPLAINT: The patient walked to the ED complaining of having hallucinations and horrifying delusions after having ingested psychedelics. INTERVAL HISTORY: Patient has been doing fair. He was quite active yesterday. He seems to pace around the unit. He was very focused on trying to get something set up with [facility] for substance abuse treatment. He would make statements to the staff that he is motivated to get into treatment. He attended one group yesterday and seemed to do reasonably well in the group. He spent a fair amount of time making calls and trying to get issues clarified as far as managing referral to [facility]. He slept well last night. Today he has been up. He, again, tends to pace around the unit in a fairly brisk manner. He said that he has made contact today with [facility] and what they are asking for is a discharge date from this unit in order to clarify their own bed availability. I told the patient he could count on being discharged on Saturday. From the standpoint of mental health issues, the patient likely is stable for discharge. The humphrey issue is will he actually accept going into an inpatient treatment program and beyond that, accept continuing in a program to complete such a program. He tolerates his psychotropic medications. MENTAL STATUS EXAM: Patient gave good eye contact. He presented in an intense manner. He answered questions directly. He was frustrated about the idea of needing a discharge date though when I told him he showed quite a bit of relief in his facial expression and manner. His affect was fairly intense. His thoughts were clear. His mood was somewhat dysphoric. He was somewhat distressed mainly regarding issues of referral. He did not voice any thoughts of harm. Cognition was clear. ASSESSMENT: I will continue the current diagnosis and treatment plan. I will continue psychotropic medications the same. He will continue Zoloft 100 mg a day and Cogentin 1 mg twice a day. He is also on Haldol Decanoate 125 mg IM q14 days. I will discontinue Ativan as the patient is beyond the risk factor for DTs. Vital signs have been stable. He is working on finalizing acceptance for an inpatient substance abuse treatment program presumably at [facility]. We will focus on stabilization and discharge planning. MMLUIS FELIPEL / [place]: [id number] /
[2021-02-24] MEDS: ACETAMINOPHEN TAB 325 MG TAB PO PRN (20:33)
[2021-02-25] MEDS: PANTOPRAZOLE 40 MG TABLET PO SCH (08:37)
[2021-02-25] MEDS: lamoTRIgine 100 MG TAB PO SCH ×2 (08:37→21:08)
[2021-02-25] MEDS: NICOTINE 14MG/24HR PATCH TRANSDERM SCH (08:37)
[2021-02-25] MEDS: SERTRALINE 100 MG TAB PO SCH (08:38)
[2021-02-25] MEDS: BENZTROPINE MESYLATE 1 MG TAB PO SCH ×2 (08:38→21:08)
--- NOTE | 2021-02-25 11:34 | P.PN ---
Progress Note - Text Progress Note Date: 02/25/21 Clinical Problems: Schizoaffective disorder bipolar type, poor compliance with mental health treatment, history of methamphetamine use disorder, cannabis use disorder and tobacco use disorder. Rule out hallucinogen use disorder Interim history: I reviewed the medical record and interviewed the patient. He is a 45-year-old male who has a history of a chronic and persistent mental illness. He is well known to this unit from prior admissions (this is at least his 16th admission to the unit is 2014). According to EPS notes he presented to the ED on 02/19/2020 for the second time in 20 hours. He complained of experiencing "too many hallucinations, to many delusions, too many sorrows ...). He told the nurse that he has been using LSD, hallucinogenic mushrooms and Chinese Torch (cactus) since he was discharged from the unit 2 days prior to this presentation. His urine drug screen was only positive for marijuana. He perseverated about drinking a "herbal" concoction prior to admission that included such items as sweet flag, intent's, absinth, purple Salvia, Regalado Jennifer's lace, nightshade byrne, rhubarb and Purple Heart. He avoided answering questions about use of hallucinogens such as LSD or hallucinogenic mushrooms. He talked about his plan to go to a substance abuse rehabilitation program because "they want me to." Afterwards, he plans to live in a "camp." He seldom attends therapeutic groups and activities. He spends his time socializing with peers. Had no recent episodes of behavioral dyscontrol. Mental status exam: He presented as a casually groomed short 45-year-old male who had multiple tattoos on his arm shoulder and neck. He made e ye contact and appeared to attend to the interview. He had no prominent physical abnormalities. He had a blunted but bright facial expression. He showed moderate involuntary movements intermittently during the interview. His speech was spontaneous with normal rate and rhythm. His affect was bright and stable. He denied suicidal ideation, wishes or homicidal ideation. He denied feeling hopeless, helpless or worthless. He perseverated his about his use of the above self-made herbal drink. He did not express clear ideas of reference, paranoid ideation or delusions. His thinking was concrete but his associations were coherent, got logical and goal directed. He denied hallucinations didn't appear to be responding to internal stimuli. Assessment: He is chronically and severely mentally ill and has multiple substance use issues. He appears much improved from admission Plan: Continue inpatient treatment. Safety precautions. Plan is to discharge him to [place] for substance abuse treatment on 12/28/2020. Continue current psychotropic medications including Cogentin 1 mg twice a day, Benadryl 25 mg at bedtime when necessary, Haldol decanoate 125 mg IM every 14 days, Lamictal 100 mg twice a day and Zoloft 100 mg daily. Continue Habitrol for smoking cessation. Haldol and/or Ativan when necessary for anxiety, agitation acute psychosis. Encourage participation in therapeutic groups and activities. Evaluate clinical status response to treatment daily basis.
[2021-02-26] MEDS: PANTOPRAZOLE 40 MG TABLET PO SCH (08:34)
[2021-02-26] MEDS: BENZTROPINE MESYLATE 1 MG TAB PO SCH ×2 (08:34→20:45)
[2021-02-26] MEDS: NICOTINE 14MG/24HR PATCH TRANSDERM SCH (08:34)
[2021-02-26] MEDS: lamoTRIgine 100 MG TAB PO SCH ×2 (08:34→20:45)
[2021-02-26] MEDS: SERTRALINE 100 MG TAB PO SCH (08:34)
--- NOTE | 2021-02-26 11:18 | P.PN ---
Progress Note - Text Progress Note Date: 02/26/21 Clinical Problems: Schizoaffective disorder bipolar type, poor compliance with mental health treatment, history of methamphetamine use disorder, cannabis use disorder and tobacco use disorder. Rule out hallucinogen use disorder Interim history: I reviewed the medical record and interviewed the patient. He had no specific complaints today. His only concern was discharge. He can't attending therapeutic groups and activities yesterday. The therapist to prescribe him as appropriate, attentive and focused. He spends his time socializing with peers. Had no recent episodes of behavioral dyscontrol. Mental status exam: He presented as a casually groomed short 45-year-old male who had multiple tattoos on his arm shoulder and neck. He made eye contact and appeared to attend to the interview. He had no prominent physical abnormalities. He had a blunted but bright facial expression. He showed moderate involuntary movements intermittently during the interview. His speech was spontaneous with normal rate and rhythm. His affect was bright and stable. He denied suicidal ideation, wishes or homicidal ideation. He denied feeling hopeless, helpless or worthless. He did not express clear ideas of reference, paranoid ideation or delusions. His thinking was concrete but his associations were coherent, got logical and goal directed. He denied hallucinations didn't appear to be responding to internal stimuli. Assessment: He is chronically and severely mentally ill and has multiple substance use issues. He appears much improved from admission Plan: Continue inpatient treatment. Safety precautions. Plan is to discharge him to [place] for substance abuse treatment on 12/28/2020. Continue current psychotropic medications including Cogentin 1 mg twice a day, Benadryl 25 mg at bedtime when necessary, Haldol decanoate 125 mg IM every 14 days, Lamictal 100 mg twice a day and Zoloft 100 mg daily. Continue Habitrol for smoking cessation. Haldol and/or Ativan when necessary for anxiety, agitation acute psychosis. Encourage participation in therapeutic groups and activities. Evaluate clinical status response to treatment daily basis.
[2021-02-27] MEDS: lamoTRIgine 100 MG TAB PO SCH ×2 (09:24→22:19)
[2021-02-27] MEDS: SERTRALINE 100 MG TAB PO SCH (09:24)
[2021-02-27] MEDS: BENZTROPINE MESYLATE 1 MG TAB PO SCH ×2 (09:24→22:19)
[2021-02-27] MEDS: PANTOPRAZOLE 40 MG TABLET PO SCH (09:24)
[2021-02-27] MEDS: NICOTINE 14MG/24HR PATCH TRANSDERM SCH (09:24)
--- NOTE | 2021-02-27 09:32 | P.PN ---
Progress Note - Text Progress Note Date: 02/27/21 Interval History: Patient was seen wandering the hallways this morning and is agreeable to speak to property underwriter in the office. Patient states that he is upset today and feels anxious. He claims that he is feeling upset because he does not know what the plan is for his discharge and believes that he is going to [place] for rehab. He continues to demonstrate poor insight into his condition. He claims that his mood is "fine" and states that she has been taking his medications. He was fairly directable today and appeared to have improving hygiene and grooming. He has chronically poor insight and judgment. He continues to be bizarre at times. He states that he was able to sleep fairly last night. At this time patient denies any suicidal or homical ideations, intent or plan. Patient denies any auditory, visual hallucinations. Patient denies any side effects from the medications and has been compliant with meds. Mental Status Exam: General Appearance: Patient appears to be stated age is alert, superficially cooperative. Patient appears to have improving hygiene and grooming. Multiple tattoos Behavior: Patient is laying in his bed without any agitated behavior. Speech: Patient's speech is spontaneous, normal in volume, nonpressured. Mood/Affect: Patient reports their mood is improving mildly, Affect is constricted Suicidality/Homicidality: Patient denies having any homicidal ideation intent or plan. Denies any suicidal ideations intent or plan Perceptions: Patient denies any visual hallucinations and denies any auditory hallucinations Though content/process: Patient is bizarre. Multiple delusions, improving mildly. more appropriate. Memory and concentration: AOX3, grossly intact for the purposes of this session. Judgment and insight: Chronically poor Assessment Schizoaffective disorder, bipolar type Methamphetamine abuse Cannabis use disorder Nicotine dependence Plan: -Patient continues to meet criteria for inpatient psychiatric admission for symptom stabilization and safety. Patient has not signed medication consent and was placed in patient's chart. He is on active treatment order until 05/15/2021 and also on an active substance abuse treatment order. -Medications: Continue Zoloft 100 mg daily for mood/anxiety, Lamictal 100 mg 2 times a day for mood stabilization. Patient is currently on Haldol Decanoate 125 mg every 2 weeks with his next dose due on 02/28/21. cogentin 1mg bid for tremors. -When necessary Ativan and Haldol for agitation/aggression. -NRT - nicotine patch -SW on board for discharge planning. Encouraged the patient to participate in milieu. Patient's case is being reviewed by [facility] to determine eligibility for [facility] transfer.
[2021-02-28] MEDS: NICOTINE 14MG/24HR PATCH TRANSDERM SCH (08:28)
[2021-02-28] MEDS: lamoTRIgine 100 MG TAB PO SCH ×2 (08:28→20:58)
[2021-02-28] MEDS: PANTOPRAZOLE 40 MG TABLET PO SCH (08:28)
[2021-02-28] MEDS: BENZTROPINE MESYLATE 1 MG TAB PO SCH ×2 (08:28→08:31)
[2021-02-28] MEDS: SERTRALINE 100 MG TAB PO SCH (08:28)
[2021-02-28] MEDS: HALOPERIDOL DECANOATE 100 MG/ML 1 ML VIAL IM SCH (09:19)
--- NOTE | 2021-02-28 11:34 | P.PN ---
Progress Note - Text Progress Note Date: 02/28/21 Interval History: Patient was seen wandering the hallways this morning and is agreeable to speak to assembly instructions writer in the office. Patient states that he was feeling sick yesterday on the Cogentin and requested to have it discontinued. He states that it was helping his tremors however he does not want to be on any longer. He states that he still wants to go to rehab however believes that the ACT team is holidng this process up. He claims that he is feeling upset because he does not know what the plan is for his discharge. He was asking about "medication to help me focus". He also claims that he may have people "out there to kill me" however when asked more about it he states that "I don't really care because of already being killed thousands times". He continues to demonstrate poor insight into his condition. He claims that his mood is "ok" . He was fairly directable today and appeared to have improving hygiene and grooming. He continues to be bizarre at times. He states that he was able to sleep fairly last night. At this time patient denies any suicidal or homical ideations, intent or plan. Patient denies any auditory, visual hallucinations. Patient denies any side effects from the medications and has been compliant with meds. Mental Status Exam: General Appearance: Patient appears to be stated age is alert, superficially cooperative. Patient appears to have improving hygiene and grooming. Multiple tattoos Behavior: Patient is laying in his bed without any agitated behavior. Speech: Patient's speech is spontaneous, normal in volume, nonpressured. Mood/Affect: Patient reports their mood is improving mildly, Affect is constricted Suicidality/Homicidality: Patient denies having any homicidal ideation intent or plan. Denies any suicidal ideations intent or plan Perceptions: Patient denies any visual hallucinations and denies any auditory hallucinations Though content/process: Patient is bizarre. Multiple delusions, improving mildly. Memory and concentration: AOX3, grossly intact for the purposes of this session. Judgment and insight: Chronically poor Assessment Schizoaffective disorder, bipolar type Methamphetamine abuse Cannabis use disorder Nicotine dependence Plan: -Patient continues to meet criteria for inpatient psychiatric admission for symptom stabilization and safety. Patient has not signed medication consent and was placed in patient's chart. He is on active treatment order until 05/15/2021 and also on an active substance abuse treatment order. -Medications: Continue Zoloft 100 mg daily for mood/anxiety, Lamictal 100 mg 2 times a day for mood stabilization. Patient is currently on Haldol Decanoate 125 mg every 2 weeks with his next dose due on 03/14/21. Discontinue Cogentin as per patient's request. -When necessary Ativan and Haldol for agitation/aggression. -NRT - nicotine patch -SW on board for discharge planning. Encouraged the patient to participate in milieu. Patient's case was reviewed by the director of enterprise applications who is agreeing to have patient transferred to [place].
[2021-02-28] MEDS: ACETAMINOPHEN TAB 325 MG TAB PO PRN (16:31)
[2021-03-01] MEDS: lamoTRIgine 100 MG TAB PO SCH ×2 (08:45→20:51)
[2021-03-01] MEDS: NICOTINE 14MG/24HR PATCH TRANSDERM SCH ×2 (08:45→14:58)
[2021-03-01] MEDS: PANTOPRAZOLE 40 MG TABLET PO SCH (08:45)
[2021-03-01] MEDS: SERTRALINE 100 MG TAB PO SCH (08:45)
[2021-03-01] MEDS: ACETAMINOPHEN TAB 325 MG TAB PO PRN (09:23)
--- NOTE | 2021-03-01 11:00 | P.PN ---
Progress Note - Text Progress Note Date: 03/01/21 Interval History: Patient was seen wandering the hallways this morning and is agreeable to speak to ghost writer in the office. Patient spoke briefly about his meeting scheduled later on today with the act team and also his [facility] caser up. He claims that "I just want my freedom back and I want to go to rehab". She claims that he has been going to some groups and try to participate about what he is learning in them. Patient states that he is feeling better since the Cogentin has been discontinued and claims that "I was hallucinating and seeing my friends when I'm on that stuff". He continues to demonstrate poor insight into his condition. He claims that his mood is "fine" . He was fairly directable today and appeared to have improving hygiene and grooming. He continues to be bizarre at times. He states that he was able to sleep fairly last night. At this time patient denies any suicidal or homical ideations, intent or plan. Patient denies any auditory, visual hallucinations. Patient denies any side effects from the medications and has been compliant with meds. Mental Status Exam: General Appearance: Patient appears to be stated age is alert, superficially cooperative. Patient appears to have improving hygiene and grooming. Multiple tattoos Behavior: Patient is laying in his bed without any agitated behavior. Speech: Patient's speech is spontaneous, normal in volume, nonpressured. Mood/Affect: Patient reports their mood is improving mildly, Affect is constricted Suicidality/Homicidality: Patient denies having any homicidal ideation intent or plan. Denies any suicidal ideations intent or plan Perceptions: Patient denies any visual hallucinations and denies any auditory hallucinations Though content/process: Patient is bizarre. Multiple delusions, improving mildly. Memory and concentration: AOX3, grossly intact for the purposes of this session. Judgment and insight: Chronically poor Assessment Schizoaffective disorder, bipolar type Methamphetamine abuse Cannabis use disorder Nicotine dependence Plan: -Patient continues to meet criteria for inpatient psychiatric admission for symptom stabilization and safety. Patient has not signed medication consent and was placed in patient's chart. He is on active treatment order until 05/15/2021 and also on an active substance abuse treatment order. -Medications: Continue Zoloft 100 mg daily for mood/anxiety, Lamictal 100 mg 2 times a day for mood stabilization. Patient is currently on Haldol Decanoate 125 mg every 2 weeks with his next dose due on 03/14/21. Discontinue Cogentin as per patient's request. -When necessary Ativan and Haldol for agitation/aggression. -NRT - nicotine patch -SW on board for discharge planning. Encouraged the patient to participate in milieu. Patient's case was reviewed by the boat repairer who is agreeing to have patient transferred to [place]. [facility] will be meeting with the ACT team and his [facility] caser up today to discuss his discharge plan.
[2021-03-02] MEDS: NICOTINE 14MG/24HR PATCH TRANSDERM SCH ×2 (09:17→17:17)
[2021-03-02] MEDS: PANTOPRAZOLE 40 MG TABLET PO SCH (09:17)
[2021-03-02] MEDS: SERTRALINE 100 MG TAB PO SCH (09:17)
[2021-03-02] MEDS: lamoTRIgine 100 MG TAB PO SCH ×2 (09:17→20:22)
--- NOTE | 2021-03-02 10:34 | P.PN ---
Progress Note - Text Progress Note Date: 03/02/21 Interval History: Patient was seen wandering the hallways this morning and is agreeable to speak to blurb writer in the office. She spoke briefly about his meeting yesterday with [facility] and his supportive employment case manager and states that "they want me to go to [facility]". He states that he is not sure about how he feels about this and claims that "they're taking away my freedom". He states that he also "messed up too many times". he claims that he has been going to some groups and try to participate about what he is learning in them. He continues to demonstrate poor insight into his condition. He claims that his mood is "alright" . He was fairly directable today and appeared to have improving hygiene and grooming. He continues to be bizarre at times. He states that he was able to sleep fairly last night. At this time patient denies any suicidal or homical ideations, intent or plan. Patient denies any auditory, visual hallucinations. Patient denies any side effects from the medications and has been compliant with meds. Mental Status Exam: General Appearance: Patient appears to be stated age is alert, superficially cooperative. Patient appears to have improving hygiene and grooming. Multiple tattoos Behavior: Patient is laying in his bed without any agitated behavior. Speech: Patient's speech is spontaneous, normal in volume, nonpressured. Mood/Affect: Patient reports their mood is improving mildly, Affect is constricted Suicidality/Homicidality: Patient denies having any homicidal ideation intent or plan. Denies any suicidal ideations intent or plan Perceptions: Patient denies any visual hallucinations and denies any auditory hallucinations Though content/process: Patient is bizarre. Multiple delusions, improving mildly. Memory and concentration: AOX3, grossly intact for the purposes of this session. Judgment and insight: Chronically poor Assessment Schizoaffective disorder, bipolar type Methamphetamine abuse Cannabis use disorder Nicotine dependence Plan: -Patient continues to meet criteria for inpatient psychiatric admission for symptom stabilization and safety. Patient has not signed medication consent and was placed in patient's chart. He is on active treatment order until 05/15/2021 and also on an active substance abuse treatment order. -Medications: Continue Zoloft 100 mg daily for mood/anxiety, Lamictal 100 mg 2 times a day for mood stabilization. Patient is currently on Haldol Decanoate 125 mg every 2 weeks with his next dose due on 03/14/21. Discontinue Cogentin as per patient's request. -When necessary Ativan and Haldol for agitation/aggression. -NRT - nicotine patch -SW on board for discharge planning. Encouraged the patient to participate in milieu. Patient's case was reviewed by the support architect who is agreeing to have patient transferred to [place]. Patient is set for transfer to [place] once bed becomes available.
[2021-03-02] MEDS: ACETAMINOPHEN TAB 325 MG TAB PO PRN (19:13)
[2021-03-03] MEDS: SERTRALINE 100 MG TAB PO SCH (09:23)
[2021-03-03] MEDS: NICOTINE 14MG/24HR PATCH TRANSDERM SCH (09:23)
[2021-03-03] MEDS: lamoTRIgine 100 MG TAB PO SCH ×2 (09:23→20:06)
[2021-03-03] MEDS: PANTOPRAZOLE 40 MG TABLET PO SCH (09:24)
--- NOTE | 2021-03-03 11:29 | PN ---
PROGRESS NOTE DATE OF SERVICE: 03/03/2021 CHIEF COMPLAINT: The patient walked into the ED complaining of having hallucinations and horrifying delusions after having ingested psychedelics. INTERVAL HISTORY: The patient has been doing fairly well. He had a quiet day yesterday. He comes out on the unit. He spends most of his time in the day area. He will wander about the halls. He will talk to different people. Sometimes he will seem to be talking to himself. He did not attend groups yesterday. He slept fairly well last night. Today he has been up. He continues to wonder about. He mostly will make odd and disconnected statements. He might try to initiate some conversation, though then will seem to wander off without actually communicating much. He had no specific complaints or concerns today and said that overall he was feeling fairly good. He tolerates his psychotropic medications. MENTAL STATUS: Patient was somewhat restless. He gave fair eye contact. He answered a few questions appropriately. More often than not he made brief disjointed statements. It was hard to follow his train of thought. His affect was somewhat constricted. He had a quiet manner. He did not appear to be significantly distressed in any way. He continues to show response to internal stimuli. He voiced no thoughts of harm. He was oriented to his circumstances and surroundings. ASSESSMENT: I will continue the current diagnosis and treatment plan. I will continue psychotropic medications the same. The patient does have understanding in regard to referral to [facility] for continued care. We will focus on stabilization and discharge planning. MMODL / IJN: [id number] /
[2021-03-03] MEDS: ACETAMINOPHEN TAB 325 MG TAB PO PRN (20:06)
[2021-03-04] MEDS: lamoTRIgine 100 MG TAB PO SCH ×2 (08:09→19:52)
[2021-03-04] MEDS: NICOTINE 14MG/24HR PATCH TRANSDERM SCH (08:09)
[2021-03-04] MEDS: PANTOPRAZOLE 40 MG TABLET PO SCH (08:09)
[2021-03-04] MEDS: SERTRALINE 100 MG TAB PO SCH (08:09)
--- NOTE | 2021-03-04 14:30 | P.PN ---
Progress Note - Text Progress Note Date: 03/04/21 Clinical Problems: Schizoaffective disorder bipolar type, poor compliance with mental health treatment, history of methamphetamine use disorder, cannabis use disorder and tobacco use disorder. Rule out hallucinogen use disorder Interim history: I reviewed the medical record and interviewed the patient. He complained about the length of this hospitalization, side effects to his current medications and the recommendation by his [facility] treatment team that he remain hospitalized until a bed is available at [facility]. He intermittently attends therapeutic groups and activities yesterday. Had no recent episodes of behavioral dyscontrol. Mental status exam: He presented as a casually groomed short 45-year-old male who had multiple tattoos on his arm shoulder and neck. He made eye contact and appeared to attend to the interview. He had no prominent physical abnormalities. He had a blunted but bright facial expression. He showed moderate involuntary movements intermittently during the interview that worsened with activation. His speech was spontaneous with normal rate and rhythm. His affect was bright and stable. He denied suicidal ideation, wishes or homicidal ideation. He denied feeling hopeless, helpless or worthless. He did not express clear ideas of reference, paranoid ideation or delusions. His thinking was concrete but his associations were coherent, got logical and goal directed. He denied hallucinations didn't appear to be responding to internal stimuli. Assessment: He is chronically and severely mentally ill and has multiple substance use issues. He appears much improved from admission Plan: Continue inpatient treatment. Safety precautions. Plan is to discharge him to [place] for substance abuse treatment on 12/28/2020. Continue current psychotropic medications including Benadryl 25 mg at bedtime when necessary, Haldol decanoate 125 mg IM every 14 days, Lamictal 100 mg twice a day and Zoloft 100 mg daily. Continue Habitrol for smoking cessation. Haldol and/or Ativan when necessary for anxiety, agitation acute psychosis. Encourage participation in therapeutic groups and activities. Evaluate clinical status response to treatment daily basis.
[2021-03-05] MEDS: lamoTRIgine 100 MG TAB PO SCH ×2 (08:15→20:37)
[2021-03-05] MEDS: PANTOPRAZOLE 40 MG TABLET PO SCH (08:15)
[2021-03-05] MEDS: NICOTINE 14MG/24HR PATCH TRANSDERM SCH (08:15)
[2021-03-05] MEDS: SERTRALINE 100 MG TAB PO SCH (08:15)
--- NOTE | 2021-03-05 14:55 | P.PN ---
Progress Note - Text Progress Note Date: 03/05/21 Clinical Problems: Schizoaffective disorder bipolar type, poor compliance with mental health treatment, history of methamphetamine use disorder, cannabis use disorder and tobacco use disorder. Rule out hallucinogen use disorder Interim history: I reviewed the medical record and interviewed the patient. Although he was ordered to attend residential rehabilitation and admission to [place] for residential substance abuse treatment with authorized, [facility] and his guardian received authorization for admission to [facility]. He is depressed and withdrawn over this recommendation. He remained in bed most the day coming out for medication and meals. He did not attend therapeutic groups today. 8 hours last night. Had no recent episodes of behavioral dyscontrol. Mental status exam: He presented as a casually groomed short 45-year-old [place] an male who had multiple tattoos on his arm shoulder and neck. He made eye contact and appeared to attend to the interview. He had no prominent physical abnormalities. He had a blunted but bright facial expression. He showed moderate involuntary movements intermittently during the interview that worsened with activation. His speech was spontaneous with normal rate and rhythm. His affect was bright and stable. He denied suicidal ideation, wishes or homicidal ideation. He denied feeling hopeless, helpless or worthless. He did not express clear ideas of reference, paranoid ideation or delusions. His thinking was concrete but his associations were coherent, got logical and goal directed. He denied hallucinations didn't appear to be responding to internal stimuli. Assessment: He is chronically and severely mentally ill and has multiple substance use issues. He is moderately improved from admission. Plan: Continue inpatient treatment. Safety precautions. The plan is to transfer him to [facility] when a bed is available. Continue current psychotropic medications including Benadryl 25 mg at bedtime when necessary, Haldol decanoate 125 mg IM every 14 days, Lamictal 100 mg twice a day and Zoloft 100 mg daily. Continue Habitrol for smoking cessation. Haldol and/or Ativan when necessary for anxiety, agitation acute psychosis. Encourage participation in therapeutic groups and activities. Evaluate clinical status response to treatment daily basis.
[2021-03-05] MEDS: ACETAMINOPHEN TAB 325 MG TAB PO PRN (20:38)
[2021-03-06] MEDS: NICOTINE 14MG/24HR PATCH TRANSDERM SCH ×2 (09:05→18:31)
[2021-03-06] MEDS: PANTOPRAZOLE 40 MG TABLET PO SCH (09:05)
[2021-03-06] MEDS: lamoTRIgine 100 MG TAB PO SCH ×2 (09:05→21:07)
[2021-03-06] MEDS: SERTRALINE 100 MG TAB PO SCH (09:05)
--- NOTE | 2021-03-06 11:25 | P.PN ---
Progress Note - Text Progress Note Date: 03/06/21 Interval History: Patient was seen wandering the hallways this morning and is agreeable to speak to advertising copywriter in the office. he spoke briefly about his weekend and denied any complaints. He states that he has been feeling a mild tremor in his arms and hands which has been chronic however states that he does not want any medications are Cogentin for the tremor as it "makes me sick". He states that he feels he does not have schizophrenia and does not need medications and claims that the doctors have not been helping him. He claims that he has not heard any more updates about his discharge plan. He states that he wants a ict business development manager to look at his case once again and does not agree with the decision by the head worker to put him on a treatment order. he claims that he has been going to some groups and try to participate about what he is learning in them. He continues to demonstrate poor insight into his condition. He claims that his mood is "alright" . He was fairly directable today and appeared to have improving hygiene and grooming. He continues to be bizarre at times. He states that he was able to sleep fairly last night. At this time patient denies any suicidal or homical ideations, intent or plan. Patient denies any auditory, visual hallucinations. Patient denies any side effects from the medications and has been compliant with meds. Mental Status Exam: General Appearance: Patient appears to be stated age is alert, superficially cooperative. Patient appears to have improving hygiene and grooming. Multiple tattoos Behavior: Patient is laying in his bed without any agitated behavior. Speech: Patient's speech is spontaneous, normal in volume, nonpressured. Mood/Affect: Patient reports their mood is improving mildly, Affect is constricted Suicidality/Homicidality: Patient denies having any homicidal ideation intent or plan. Denies any suicidal ideations intent or plan Perceptions: Patient denies any visual hallucinations and denies any auditory hallucinations Though content/process: Patient is bizarre. Multiple delusions, improving mildly. Memory and concentration: AOX3, grossly intact for the purposes of this session. Judgment and insight: Chronically poor Assessment Schizoaffective disorder, bipolar type Methamphetamine abuse Cannabis use disorder Nicotine dependence Plan: -Patient continues to meet criteria for inpatient psychiatric admission for symptom stabilization and safety. Patient has not signed medication consent and was placed in patient's chart. He is on active treatment order until 05/15/2021 and also on an active substance abuse treatment order. -Medications: Continue Zoloft 100 mg daily for mood/anxiety, Lamictal 100 mg 2 times a day for mood stabilization. Patient is currently on Haldol Decanoate 125 mg every 2 weeks with his next dose due on 03/14/21. benadryl 25mg qhs prn for insomnia. -When necessary Ativan and Haldol for agitation/aggression. -NRT - nicotine patch -SW on board for discharge planning. Encouraged the patient to participate in milieu. Patient's case was reviewed by the head worker who is agreeing to have jem ent transferred to [place]. Patient is set for transfer to [place] once bed becomes available.
[2021-03-06] MEDS: ACETAMINOPHEN TAB 325 MG TAB PO PRN (21:06)
[2021-03-07] MEDS: NICOTINE 14MG/24HR PATCH TRANSDERM SCH (08:12)
[2021-03-07] MEDS: SERTRALINE 100 MG TAB PO SCH (08:12)
[2021-03-07] MEDS: lamoTRIgine 100 MG TAB PO SCH ×2 (08:12→20:42)
[2021-03-07] MEDS: PANTOPRAZOLE 40 MG TABLET PO SCH (08:12)
--- NOTE | 2021-03-07 12:08 | P.PN ---
Progress Note - Text Progress Note Date: 03/07/21 Interval History: Patient was seen laying in bed this morning and is agreeable to speak to proposal manager writer. he greeted proposal manager writer and denied any complaints overnight. According to staff patient has been less visible on the unit and not attending as much groups as he used to. Patient claims that he feels disinterested in groups at this time and is still unsure about his discharge plan and asked several questions about it. Continues to have very poor insight into his condition and need for treatment. He claims that he has not heard any more updates about his discharge plan from [facility]. He claims that his mood is "alright" . He was fairly directable today and appeared to have improving hygiene and grooming. He continues to be bizarre at times. He states that he was able to sleep fairly last night. At this time patient denies any suicidal or homical ideations, intent or plan. Patient denies any auditory, visual hallucinations. Patient denies any side effects from the medications and has been compliant with meds. Mental Status Exam: General Appearance: Patient appears to be stated age is alert, superficially cooperative. Patient appears to have improving hygiene and grooming. Multiple tattoos Behavior: Patient is laying in his bed without any agitated behavior. Speech: Patient's speech is spontaneous, normal in volume, nonpressured. Mood/Affect: Patient reports their mood is improving mildly, Affect is constricted Suicidality/Homicidality: Patient denies having any homicidal ideation intent or plan. Denies any suicidal ideations intent or plan Perceptions: Patient denies any visual hallucinations and denies any auditory hallucinations Though content/process: Patient is bizarre. Multiple delusions, improving mildly. Memory and concentration: AOX3, grossly intact for the purposes of this session. Judgment and insight: Chronically poor Assessment Schizoaffective disorder, bipolar type Methamphetamine abuse Cannabis use disorder Nicotine dependence Plan: -Patient continues to meet criteria for inpatient psychiatric admission for symptom stabilization and safety. Patient has not signed medication consent and was placed in patient's chart. He is on active treatment order until 05/15/2021 and also on an active substance abuse treatment order. -Medications: Continue Zoloft 100 mg daily for mood/anxiety, Lamictal 100 mg 2 times a day for mood stabilization. Patient is currently on Haldol Decanoate 125 mg every 2 weeks with his next dose due on 03/14/21. benadryl 25mg qhs prn for insomnia. -When necessary Ativan and Haldol for agitation/aggression. -NRT - nicotine patch -SW on board for discharge planning. Encouraged the patient to participate in milieu. Patient's case was reviewed by the cutter wet machine who is agreeing to have patient transferred to [place]. Patient is set for transfer to [place] once bed becomes available.
[2021-03-07] MEDS: ACETAMINOPHEN TAB 325 MG TAB PO PRN (20:42)
[2021-03-08] MEDS: SERTRALINE 100 MG TAB PO SCH (08:31)
[2021-03-08] MEDS: lamoTRIgine 100 MG TAB PO SCH ×2 (08:31→20:20)
[2021-03-08] MEDS: PANTOPRAZOLE 40 MG TABLET PO SCH (08:31)
[2021-03-08] MEDS: NICOTINE 14MG/24HR PATCH TRANSDERM SCH (08:31)
[2021-03-08] MEDS: ACETAMINOPHEN TAB 325 MG TAB PO PRN ×2 (14:46→21:21)
--- NOTE | 2021-03-08 15:50 | P.PN ---
Progress Note - Text Progress Note Date: 03/08/21 S&O: Patient was seen for a routine follow-up examination in the office. He is polite and cooperative. He said the range scientist has ordered him to go to [facility] for long-term treatment. He does not have any specific complaints except for request to go home for a short time until he can go to [facility]. He asked me if I am a shaman. 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 He is on Haldol D and 25 mg IM every 2 weeks, Zoloft 100 mg a day, Lamictal and when necessary Benadryl. He has dyskinetic movements of both hands and lower limbs with some mild fascicular moment of the tongue. Was advised to discuss these things with his doctor and possibly change Haldol D and when necessary Benadryl to clozapine. He said he will try to do so. This is a right ambulatory male with adequate hygiene. He is polite and cooperative. He does not show any psychomotor agitation or retardation. But he has dyskinetic movements as noted above. His speech is spontaneous and fluent and goal-directed. His mood is euthymic to cheerful and affect is appropriate to thought content. He denies hallucinations but he has delusions of grandeur. He denies suicide and homicide thoughts. He is well oriented with good memory concentration different of knowledge. A & P: Continue current medications therapy and supervision. He was advised to discuss with his psychiatrist regarding the above findings including probable TD.
[2021-03-08] MEDS: diphenhydrAMINE 25 MG CAP PO PRN (22:08)
[2021-03-09] MEDS: SERTRALINE 100 MG TAB PO SCH (08:32)
[2021-03-09] MEDS: NICOTINE 14MG/24HR PATCH TRANSDERM SCH (08:32)
[2021-03-09] MEDS: lamoTRIgine 100 MG TAB PO SCH ×2 (08:32→20:59)
[2021-03-09] MEDS: PANTOPRAZOLE 40 MG TABLET PO SCH (08:32)
--- NOTE | 2021-03-09 15:06 | P.PN ---
Progress Note - Text Progress Note Date: 03/09/21 S&O: Patient was seen in the office for follow-up examination. He does not have any complaint or concerns except he does not want to go to [facility] and wants to go to a rehab center. He has been taking his medications and this along fairly well with other patients and staff members. Continues to have dyskinetic movements of the limbs and some fascicular movement of the tongue. He said he does not have schizophrenia but when he was growing up he was eating byrne and other forms of psychedelics. This is a white ambulatory male with adequate hygiene. He is polite and cooperative. He continues to have dyskinetic movements as noted above. But he does not have any psychomotor agitation or retardation. His speech is spontaneous and mostly goal-directed. His mood is euthymic to mildly anxious and affect is appropriate to the thought content. 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 Also talked about [place] rituals. Denies suicide and homicide thoughts. He is well oriented with good memory and general fund of knowledge. A&P: Continue current medications therapy and supervision.
[2021-03-10] MEDS: NICOTINE 14MG/24HR PATCH TRANSDERM SCH ×2 (09:19→17:20)
[2021-03-10] MEDS: SERTRALINE 100 MG TAB PO SCH (09:20)
[2021-03-10] MEDS: PANTOPRAZOLE 40 MG TABLET PO SCH (09:20)
[2021-03-10] MEDS: lamoTRIgine 100 MG TAB PO SCH ×2 (09:20→19:42)
--- NOTE | 2021-03-10 11:45 | P.PN ---
Progress Note - Text Progress Note Date: 03/10/21 S&O: Patient was seen for routine follow-up examination in his room. He was laying down on his bed. He does not have any specific complaints or concerns. He said he is taking his medications and is getting along okay. He does not attend all the groups and attends only then he wants. This is a quite ambulatory male with adequate hygiene. He is polite and cooperative. His speech is spontaneous, tends to get over inclusive and loose at times. He continues to have dyskinetic movements of the limbs and fascicular movement of the tongue. His mood is euthymic and affect is fairly appropriate to thought content. He continues to report of delusional thinking and auditory hallucinations. He denies suicidal and homicidal thoughts. He is oriented with adequate memory tone knowledge and calculations. A&P: No change in his diagnosis, continue current medications therapy and supervision.
[2021-03-10] MEDS: haloperidoL 5 MG TAB PO PRN (17:19)
[2021-03-10] MEDS: ACETAMINOPHEN TAB 325 MG TAB PO PRN (19:42)
[2021-03-11] MEDS: SERTRALINE 100 MG TAB PO SCH (08:18)
[2021-03-11] MEDS: NICOTINE 14MG/24HR PATCH TRANSDERM SCH ×2 (08:18→13:25)
[2021-03-11] MEDS: PANTOPRAZOLE 40 MG TABLET PO SCH (08:18)
[2021-03-11] MEDS: lamoTRIgine 100 MG TAB PO SCH ×2 (08:18→21:14)
--- NOTE | 2021-03-11 13:37 | P.PN ---
Progress Note - Text Progress Note Date: 03/11/21 Interval History: Patient was seen in the room and was directable and agreeable to speak with screenplay writer . This patient is a 45-year-old man who presented to have psychiatric evaluation. The patient states that he feels bad because he is getting people just by thinking about it. Patient denies any side effects from the medications and has been compliant with meds. Mental Status Exam: General Appearance: Patient appears to be stated age is alert, directable, and cooperative. Behavior: Patient is calmly seated without any agitated behavior. Speech: Patient's speech is fluent and nonpressured. Mood/Affect: Mood is improving mildly, affect is congruent and constricted. Suicidality/Homicidality: Patient denies having any suicidal or homicidal ideation intent or plan. Perceptions: Patient denies any visual hallucinations and denies any auditory hallucinations Though content/process: There is no evidence of any delusional thought content and thought process is linear and goal-directed. Memory and concentration: AOX3, grossly intact for the purposes of this session Judgment and insight: Improving mildly Assessment Schizoaffective disorder, bipolar type Methamphetamine abuse Cannabis use disorder Nicotine dependence Plan: -Patient continues to meet criteria for inpatient psychiatric admission for symptom stabilization and safety. -Medications: Continue medication as before -When necessary Ativan and Haldol for agitation/aggression. -SW on board for discharge planning. Encouraged the patient to participate in milieu.
[2021-03-11] MEDS: ACETAMINOPHEN TAB 325 MG TAB PO PRN ×3 (14:38→21:16)
[2021-03-12] MEDS: lamoTRIgine 100 MG TAB PO SCH ×2 (08:41→20:26)
[2021-03-12] MEDS: PANTOPRAZOLE 40 MG TABLET PO SCH (08:41)
[2021-03-12] MEDS: SERTRALINE 100 MG TAB PO SCH (08:41)
--- NOTE | 2021-03-12 10:09 | P.PN ---
Progress Note - Text Progress Note Date: 03/12/21 Interval History: Patient was seen in the room and was directable and agreeable to speak with literary writer. Patient claims that he "took too many shrooms and potions" before he came in the hospital and stated that he had a "suicidal episode". . At this time patient denies any suicidal or homical ideations, intent or plan. Patient denies any auditory, visual hallucinations and denies any paranoia or delusions. Patient denies any side effects from the medications and has been compliant with meds. Mental Status Exam: General Appearance: Patient appears to be stated age is alert, directable, and cooperative. Behavior: Patient is calmly seated without any agitated behavior. Speech: Patient's speech is fluent and nonpressured. Mood/Affect: Mood is improving mildly, affect is congruent and constricted. Suicidality/Homicidality: Patient denies having any suicidal or homicidal ideation intent or plan. Perceptions: Patient denies any visual hallucinations and denies any auditory hallucinations Though content/process: There is no evidence of any delusional thought content and thought process is linear and goal-directed. Memory and concentration: AOX3, grossly intact for the purposes of this session Judgment and insight: Improving mildly Assessment Schizoaffective disorder, bipolar type Methamphetamine abuse Cannabis use disorder Nicotine dependence Plan: -Patient continues to meet criteria for inpatient psychiatric admission for symptom stabilization and safety. -Medications: Continue medication as before. -When necessary Ativan and Haldol for agitation/aggression. -SW on board for discharge planning. Encouraged the patient to participate in milieu.
[2021-03-12] MEDS: NICOTINE 14MG/24HR PATCH TRANSDERM SCH ×2 (11:45→13:39)
[2021-03-12] MEDS: ACETAMINOPHEN TAB 325 MG TAB PO PRN (15:40)
[2021-03-13] MEDS: lamoTRIgine 100 MG TAB PO SCH ×2 (08:52→20:24)
[2021-03-13] MEDS: NICOTINE 14MG/24HR PATCH TRANSDERM SCH (08:52)
[2021-03-13] MEDS: PANTOPRAZOLE 40 MG TABLET PO SCH (08:52)
[2021-03-13] MEDS: SERTRALINE 100 MG TAB PO SCH (08:52)
--- NOTE | 2021-03-13 09:46 | P.PN ---
Progress Note - Text Progress Note Date: 03/13/21 Interval History: Patient was seen laying in bed this morning and is agreeable to speak to medical writer. He denied any complaints overnights this morning. He states that he has been mainly keeping to himself as of lately and has been going to less groups. He claims that his mood has not changed much since he was last seen by medical writer. He claims that he wants to speak with [facility] and the geriatric social work professor again today regarding his disposition to go to [place]. Continues to have very poor insight into his condition and need for treatment. He was fairly directable today and appeared to have improving hygiene and grooming. He continues to be bizarre at times. At this time patient denies any suicidal or homical ideations, intent or plan. Patient denies any auditory, visual hallucinations. Patient denies any side effects from the medications and has been compliant with meds. Mental Status Exam: General Appearance: Patient appears to be stated age is alert, superficially cooperative. Patient appears to have improving hygiene and grooming. Multiple tattoos Behavior: Patient is laying in his bed without any agitated behavior. Speech: Patient's speech is spontaneous, normal in volume, nonpressured. Mood/Affect: Patient reports their mood is improving mildly, Affect is constricted Suicidality/Homicidality: Patient denies having any homicidal ideation intent or plan. Denies any suicidal ideations intent or plan Perceptions: Patient denies any visual hallucinations and denies any auditory campbell llucinations Though content/process: Patient is bizarre. Multiple delusions, improving mildly. Memory and concentration: AOX3, grossly intact for the purposes of this session. Judgment and insight: Chronically poor Assessment Schizoaffective disorder, bipolar type Methamphetamine abuse Cannabis use disorder Nicotine dependence Plan: -Patient continues to meet criteria for inpatient psychiatric admission for symptom stabilization and safety. Patient has not signed medication consent and was placed in patient's chart. He is on active treatment order until 05/15/2021 and also on an active substance abuse treatment order. -Medications: Continue Zoloft 100 mg daily for mood/anxiety, Lamictal 100 mg 2 times a day for mood stabilization. Patient is currently on Haldol Decanoate 125 mg every 2 weeks with his next dose due on 03/14/21. benadryl 25mg qhs prn for insomnia. -When necessary Ativan and Haldol for agitation/aggression. -NRT - nicotine patch -SW on board for discharge planning. Encouraged the patient to participate in milieu. Patient's case was reviewed by the modular set crew member who is agreeing to have patient transferred to [place]. Patient is set for transfer to [place] once bed becomes available.
[2021-03-13] MEDS: ACETAMINOPHEN TAB 325 MG TAB PO PRN (17:23)
[2021-03-14] MEDS: PANTOPRAZOLE 40 MG TABLET PO SCH (08:26)
[2021-03-14] MEDS: SERTRALINE 100 MG TAB PO SCH (08:26)
[2021-03-14] MEDS: lamoTRIgine 100 MG TAB PO SCH ×2 (08:26→20:47)
[2021-03-14] MEDS: HALOPERIDOL DECANOATE 100 MG/ML 1 ML VIAL IM SCH (08:57)
[2021-03-14] MEDS: NICOTINE 14MG/24HR PATCH TRANSDERM SCH (08:57)
--- NOTE | 2021-03-14 10:05 | P.PN ---
Progress Note - Text Progress Note Date: 03/14/21 Interval History: Patient was seen laying in bed this morning and is agreeable to speak to bond underwriter. He claims this morning that he received his injection of Haldol today and is feeling "shaky". Patient was offered Cogentin Benadryl or Ativan however he declined all of them and stated that he would rather be off of Haldol. He claims that [facility] and also [facility]. He states that he does not feel like going to groups as of lately. He claims that his mood has not changed much since yesterday. He continues to ask questions about when he will be going to [facility]. Continues to have very poor insight into his condition and need for treatment. He was fairly directable today and appeared to have improving hygiene and grooming. He continues to be bizarre at times. At this time patient denies any suicidal or homical ideations, intent or plan. Patient denies any auditory, visual hallucinations. Patient denies any side effects from the medications and has been compliant with meds. Mental Status Exam: General Appearance: Patient appears to be stated age is alert, superficially cooperative. Patient appears to have improving hygiene and grooming. Multiple tattoos Behavior: Patient is laying in his bed without any agitated behavior. Speech: Patient's speech is spontaneous, normal in volume, nonpressured. Mood/Affect: Patient reports their mood is improving mildly, Affect is constricted Suicidality/Homicidality: Patient denies having any homicidal ideation intent or plan. Denies any suicidal ideations intent or plan Perceptions: Patient denies any visual hallucinations and denies any auditory hallucinations Though content/process: Patient is bizarre. Multiple delusions, improving mildly. Memory and concentration: AOX3, grossly intact for the purposes of this session. Judgment and insight: Chronically poor Assessment Schizoaffective disorder, bipolar type Methamphetamine abuse Cannabis use disorder Nicotine dependence Plan: -Patient continues to meet criteria for inpatient psychiatric admission for symptom stabilization and safety. Patient has not signed medication consent and was placed in patient's chart. He is on active treatment order until 05/15/2021 and also on an active substance abuse treatment order. -Medications: Continue Zoloft 100 mg daily for mood/anxiety, Lamictal 100 mg 2 times a day for mood stabilization. Patient is currently on Haldol Decanoate 125 mg every 2 weeks with his next dose due on 03/28/21. benadryl 25mg qhs prn for insomnia. Pt was offered cogentin for tremors however he declined at this time. -When necessary Ativan and Haldol for agitation/aggression. -NRT - nicotine patch -SW on board for discharge planning. Encouraged the patient to participate in milieu. Patient's case was reviewed by the log scaler who is agreeing to have patient transferred to [place]. Patient is set for transfer to [place] once bed becomes available.
[2021-03-14 14:17] VITALS: BMI 24.1
[2021-03-15] MEDS: lamoTRIgine 100 MG TAB PO SCH ×2 (08:40→20:14)
[2021-03-15] MEDS: PANTOPRAZOLE 40 MG TABLET PO SCH (08:40)
[2021-03-15] MEDS: NICOTINE 14MG/24HR PATCH TRANSDERM SCH ×2 (08:40→16:52)
[2021-03-15] MEDS: SERTRALINE 100 MG TAB PO SCH (08:40)
--- NOTE | 2021-03-15 10:25 | P.PN ---
Progress Note - Text Progress Note Date: 03/15/21 Interval History: Patient was seen laying in bed this morning and is agreeable to speak to news writer. He claims today that he feels less shaky and offered no other complaints overnight. He claims that "I'm just waiting to go to [facility]". Patient was offered Cogentin Benadryl or Ativan however he declined all of them once again. He made several requests to news writer to have him not be discharged to long-term care. He claims that his mood is "fine". He states that he does not feel like going to groups as of lately. Continues to have very poor insight into his condition and need for treatment. He was fairly directable today and appeared to have improving hygiene and grooming. He continues to be bizarre at times. At this time patient denies any suicidal or homical ideations, intent or plan. Patient denies any auditory, visual hallucinations. Patient denies any side effects from the medications and has been compliant with meds. Mental Status Exam: General Appearance: Patient appears to be stated age is alert, superficially cooperative. Patient appears to have improving hygiene and grooming. Multiple tattoos Behavior: Patient is laying in his bed without any agitated behavior. Speech: Patient's speech is spontaneous, normal in volume, nonpressured. Mood/Affect: Patient reports their mood is improving mildly, Affect is constricted Suicidality/Homicidality: Patient denies having any homicidal ideation intent or plan. Denies any suicidal ideations intent or plan Perceptions: Patient denies any visual hallucinations and denies any auditory hallucinations Though content/process: Patient is bizarre. Multiple delusions, improving mildly. Memory and concentration: AOX3, grossly intact for the purposes of this session. Judgment and insight: Chronically poor Assessment Schizoaffective disorder, bipolar type Methamphetamine abuse Cannabis use disorder Nicotine dependence Plan: -Patient continues to meet criteria for inpatient psychiatric admission for symptom stabilization and safety. Patient has not signed medication consent and was placed in patient's chart. He is on active treatment order until 05/15/2021 and also on an active substance abuse treatment order. -Medications: Continue Zoloft 100 mg daily for mood/anxiety, Lamictal 100 mg 2 times a day for mood stabilization. Patient is currently on Haldol Decanoate 125 mg every 2 weeks with his next dose due on 03/28/21. benadryl 25mg qhs prn for insomnia. Pt was offered cogentin for tremors however he declined at this time. -When necessary Ativan and Haldol for agitation/aggression. -NRT - nicotine patch -SW on board for discharge planning. Encouraged the patient to participate in milieu. Patient's case was reviewed by the salt plant operator who is agreeing to have patient transferred to [place]. Patient is set for transfer to [place] once bed becomes available.
[2021-03-15] MEDS: ACETAMINOPHEN TAB 325 MG TAB PO PRN ×2 (14:15→18:54)
[2021-03-15 17:20] LABS: Appearance,Urine Clear (Clear); Bilirubin,Urine Negative (Negative); Blood,Urine Negative (Negative); Color,Urine Yellow; Glucose,Urine (UA) Negative (Negative); Ketones,Urine Negative (Negative); Leukocyte Esterase,Urine Negative (Negative); Nitrite,Urine Negative (Negative); Protein,Urine Negative (Negative); Specific Gravity,Urine 1.026 (1.001-1.035); Urobilinogen,Urine <2.0 mg/dL (<2.0)
[2021-03-16] MEDS: PANTOPRAZOLE 40 MG TABLET PO SCH (08:05)
[2021-03-16] MEDS: SERTRALINE 100 MG TAB PO SCH (08:05)
[2021-03-16] MEDS: NICOTINE 14MG/24HR PATCH TRANSDERM SCH (08:05)
[2021-03-16] MEDS: lamoTRIgine 100 MG TAB PO SCH ×2 (08:05→20:54)
--- NOTE | 2021-03-16 10:16 | P.PN ---
Progress Note - Text Progress Note Date: 03/16/21 Interval History: Patient was seen laying in bed this morning and is agreeable to speak to senior copywriter. He appeared to be fairly constricted today. He claims today that he feels less shaky and offered no other complaints overnight. He continues to state that he is waiting to go to [facility]. Patient was again offered Cogentin Benadryl or Ativan however he declined all of them once again. He claims that his mood is "alright". He states that he does not feel like going to groups as of lately but will try to go today. Continues to have very poor insight into his condition and need for treatment. He was fairly directable today and appeared to have improving hygiene and grooming. He continues to be bizarre at times. At this time patient denies any suicidal or homical ideations, intent or plan. Patient denies any auditory, visual hallucinations. Patient denies any side effects from the medications and has been compliant with meds. Mental Status Exam: General Appearance: Patient appears to be stated age is alert, superficially cooperative. Patient appears to have improving hygiene and grooming. Multiple tattoos Behavior: Patient is laying in his bed without any agitated behavior. Speech: Patient's speech is spontaneous, normal in volume, nonpressured. Mood/Affect: Patient reports their mood is "alright", Affect is constricted Suicidality/Homicidality: Patient denies having any homicidal ideation intent or plan. Denies any suicidal ideations intent or plan Perceptions: Patient denies any visual hallucinations and denies any auditory hallucinations Though content/process: Patient is bizarre. Multiple delusions, improving mildly. Memory and concentration: AOX3, grossly intact for the purposes of this session. Judgment and insight: Chronically poor Assessment Schizoaffective disorder, bipolar type Methamphetamine abuse Cannabis use disorder Nicotine dependence Plan: -Patient continues to meet criteria for inpatient psychiatric admission for symptom stabilization and safety. Patient has not signed medication consent and was placed in patient's chart. He is on active treatment order until 05/15/2021 and also on an active substance abuse treatment order. -Medications: Continue Zoloft 100 mg daily for mood/anxiety, Lamictal 100 mg 2 times a day for mood stabilization. Patient is currently on Haldol Decanoate 125 mg every 2 weeks with his next dose due on 03/28/21. benadryl 25mg qhs prn for insomnia. Pt was offered cogentin for tremors however he declined at this time. -When necessary Ativan and Haldol for agitation/aggression. -NRT - nicotine patch -SW on board for discharge planning. Encouraged the patient to participate in milieu. Patient's case was reviewed by the financial planning adviser who is agreeing to have patient transferred to [place]. Patient is set for transfer to [place] once bed becomes available.
[2021-03-16] MEDS: haloperidoL 5 MG TAB PO PRN (12:42)
[2021-03-16] MEDS: ACETAMINOPHEN TAB 325 MG TAB PO PRN ×2 (16:39→20:53)
[2021-03-17] MEDS: PANTOPRAZOLE 40 MG TABLET PO SCH (08:27)
[2021-03-17] MEDS: SERTRALINE 100 MG TAB PO SCH (08:27)
[2021-03-17] MEDS: NICOTINE 14MG/24HR PATCH TRANSDERM SCH (08:27)
[2021-03-17] MEDS: lamoTRIgine 100 MG TAB PO SCH ×2 (08:27→20:44)
--- NOTE | 2021-03-17 11:18 | P.PN ---
Progress Note - Text Progress Note Date: 03/17/21 Interval History: Patient was seen laying in bed this morning and is agreeable to speak to group underwriter. He reports improvement in his symptoms today and offered no overnight issues. he is less constricted today and engaged more with group underwriter. He claims today that he feels less shaky today. He continues to state that he is waiting to go to [facility]. He claims that his mood is "ok". He states that he does not feel like going to groups however did state that he went to one group yesterday evening. Continues to have very poor insight into his condition and need for treatment. He was fairly directable today and appeared to have improving hygiene and grooming. He continues to be bizarre at times. At this time patient denies any suicidal or homical ideations, intent or plan. Patient denies any auditory, visual hallucinations. Patient denies any side effects from the medications and has been compliant with meds. Mental Status Exam: General Appearance: Patient appears to be stated age is alert, superficially cooperative. Patient appears to have improving hygiene and grooming. Multiple tattoos Behavior: Patient is laying in his bed without any agitated behavior. Speech: Patient's speech is spontaneous, normal in volume, nonpressured. Mood/Affect: Patient reports their mood is "ok", Affect is constricted Suicidality/Homicidality: Patient denies having any homicidal ideation intent or plan. Denies any suicidal ideations intent or plan Perceptions: Patient denies any visual hallucinations and denies any auditory hallucinations Though content/process: Patient is bizarre. Multiple delusions, improving mildly. Memory and concentration: AOX3, grossly intact for the purposes of this session. Judgment and insight: Chronically poor Assessment Schizoaffective disorder, bipolar type Methamphetamine abuse Cannabis use disorder Nicotine dependence Plan: -Patient continues to meet criteria for inpatient psychiatric admission for symptom stabilization and safety. Patient has not signed medication consent and was placed in patient's chart. He is on active treatment order until 05/15/2021 and also on an active substance abuse treatment order. -Medications: Continue Zoloft 100 mg daily for mood/anxiety, Lamictal 100 mg 2 times a day for mood stabilization. Patient is currently on Haldol Decanoate 125 mg every 2 weeks with his next dose due on 03/28/21. benadryl 25mg qhs prn for insomnia. Pt was offered cogentin for tremors however he declined at this time. -When necessary Ativan and Haldol for agitation/aggression. -NRT - nicotine patch -SW on board for discharge planning. Encouraged the patient to participate in milieu. Patient's case was reviewed by the justice court judge who is agreeing to have patient transferred to [place]. Patient is set for transfer to [place] once bed becomes available.
[2021-03-17] MEDS: ACETAMINOPHEN TAB 325 MG TAB PO PRN ×2 (11:19→19:24)
[2021-03-18] MEDS: SERTRALINE 100 MG TAB PO SCH (07:51)
[2021-03-18] MEDS: lamoTRIgine 100 MG TAB PO SCH ×2 (07:51→20:04)
[2021-03-18] MEDS: PANTOPRAZOLE 40 MG TABLET PO SCH (07:51)
[2021-03-18] MEDS: NICOTINE 14MG/24HR PATCH TRANSDERM SCH (12:15)
--- NOTE | 2021-03-18 14:47 | P.PN ---
Progress Note - Text Progress Note Date: 03/18/21 S&O: Patient was seen for routine follow-up examination. He was laying down in his room when he was called. He does not have any specific complaints or concerns except to find out when he can go to [facility]. He asked if his Lamictal can be decreased since he thinks that is the cause for his dyskinetic movements. He was counseled about it. This is a right ambulatory male with adequate hygiene. He does not show any psychomotor agitation or retardation. He continues to have dyskinetic movements of his limbs and tongue. His speech is fairly spontaneous and goal-directed. But he continues to be delusional and reports of hearing shamans or people far away without any electronic devices. Mood is dull and affect is somewhat constricted in range. Denies suicidal and homicidal thoughts. He is well oriented with good memory concentration and general fund of knowledge. A&P: Continue current medications therapy and supervision. He is waiting for placement at [facility].
[2021-03-19] MEDS: NICOTINE 14MG/24HR PATCH TRANSDERM SCH ×2 (08:06→13:00)
[2021-03-19] MEDS: SERTRALINE 100 MG TAB PO SCH (08:06)
[2021-03-19] MEDS: PANTOPRAZOLE 40 MG TABLET PO SCH (08:06)
[2021-03-19] MEDS: lamoTRIgine 100 MG TAB PO SCH ×2 (08:06→20:57)
--- NOTE | 2021-03-19 11:40 | P.PN ---
Progress Note - Text Progress Note Date: 03/19/21 S&O: Patient was seen for follow-up examination. He was laying down in his bed and he was seen there. He said he is taking it easy today since it is a Saturday. Does not have any specific complaints or concerns. He takes his medications and gets along fairly well with other patients and staff. He said he is still waiting to go to [facility]. This is a right ambulatory male with adequate hygiene he continues to have dyskinetic movements. His speech is spontaneous relevant and goal-directed. His mood is euthymic and affect is appropriate. He denies suicide and homicide thoughts. He continues to report of hallucinations and delusions of grandeur. He is well oriented with good memory concentration and general fund of knowledge. A&P: Continue current medications therapy and supervision. He is planning on calling [facility] tomorrow about his admission there.
[2021-03-19] MEDS: ACETAMINOPHEN TAB 325 MG TAB PO PRN ×2 (12:36→17:41)
[2021-03-20] MEDS: ACETAMINOPHEN TAB 325 MG TAB PO PRN ×2 (03:47→17:05)
--- NOTE | 2021-03-20 09:54 | P.PN ---
Progress Note - Text Progress Note Date: 03/20/21 Interval History: Patient was seen laying in bed this morning and is agreeable to speak to medical underwriter. He reports feeling "the same" and states that he had a fair weekend. he offered no overnight issues. he is less constricted today and engaged more with medical underwriter. He claims today that he feels less shaky today however is continuing to refuse any sort of treatment for his tremors. He continues to state that he is waiting to go to [facility] and is feeling bored waiting for a month on the unit. He states that he does not feel like going to groups however did state that he went to one group yesterday. Continues to have very poor insight into his condition and need for treatment. He was fairly directable today and appeared to have improving hygiene and grooming. He continues to be bizarre at times. At this time patient denies any suicidal or homical ideations, intent or plan. Patient denies any auditory, visual hallucinations. Patient denies any side effects from the medications and has been compliant with meds. Mental Status Exam: General Appearance: Patient appears to be stated age is alert, superficially cooperative. Patient appears to have improving hygiene and grooming. Multiple tattoos Behavior: Patient is laying in his bed without any agitated behavior. Speech: Patient's speech is spontaneous, normal in volume, nonpressured. Mood/Affect: Patient reports their mood is "same", Affect is constricted Suicidality/Homicidality: Patient denies having any homicidal ideation intent or plan. Denies any suicidal ideations intent or plan Perceptions: Patient denies any visual hallucinations and denies any auditory hallucinations Though content/process: Patient is bizarre. Multiple delusions, improving mildly. Memory and concentration: AOX3, grossly intact for the purposes of this session. Judgment and insight: Chronically poor Assessment Schizoaffective disorder, bipolar type Methamphetamine abuse Cannabis use disorder Nicotine dependence Plan: -Patient continues to meet criteria for inpatient psychiatric admission for symptom stabilization and safety. Patient has not signed medication consent and was placed in patient's chart. He is on active treatment order until 05/15/2021 and also on an active substance abuse treatment order. -Medications: Continue Zoloft 100 mg daily for mood/anxiety, Lamictal 100 mg 2 times a day for mood stabilization. Patient is currently on Haldol Decanoate 125 mg every 2 weeks with his next dose due on 03/28/21. benadryl 25mg qhs prn for insomnia. Pt was offered cogentin for tremors however he declined at this time. -When necessary Ativan and Haldol for agitation/aggression. -NRT - nicotine patch -SW on board for discharge planning. Encouraged the patient to participate in milieu. Patient's case was reviewed by the ethylbenzene oxidizer who is agreeing to have patient transferred to [place]. Patient is set for transfer to [place] once bed becomes available.
[2021-03-20] MEDS: lamoTRIgine 100 MG TAB PO SCH ×2 (10:06→21:05)
[2021-03-20] MEDS: SERTRALINE 100 MG TAB PO SCH (10:06)
[2021-03-20] MEDS: PANTOPRAZOLE 40 MG TABLET PO SCH (10:06)
[2021-03-20] MEDS: NICOTINE 14MG/24HR PATCH TRANSDERM SCH ×2 (10:56→12:34)
[2021-03-20] MEDS: LORazepam 2 MG/ML INJ IM PRN (12:37)
[2021-03-20] MEDS ORDERED: HALOPERIDOL LACTATE 5 MG/ML 1 ML VIAL IM PRN (13:06)
[2021-03-20] MEDS ORDERED: haloperidoL 5 MG TAB PO PRN (13:06)
[2021-03-21] MEDS: NICOTINE 14MG/24HR PATCH TRANSDERM SCH ×3 (10:38→17:50)
[2021-03-21] MEDS: SERTRALINE 100 MG TAB PO SCH (10:38)
[2021-03-21] MEDS: lamoTRIgine 100 MG TAB PO SCH ×2 (10:38→20:05)
[2021-03-21] MEDS: PANTOPRAZOLE 40 MG TABLET PO SCH (10:38)
--- NOTE | 2021-03-21 11:08 | P.PN ---
Progress Note - Text Progress Note Date: 03/21/21 Interval History: Patient was seen laying in his bed this morning and is agreeable to speak to antonio farfan. He had his whole body and head covered with the blankets while speaking to rfp writer. He reports feeling "the same" and that he is also feeling "trapped in the hospital". he offered no overnight issues. yesterday patient was bizarre, delusional and agrresive and required prns for agitation and apparently had made threats towards rfp writer and his family. He claims today that he feels less shaky today however is continuing to refuse any sort of treatment for his tremors. He asked more questions about [facility] and when he can be discharged. He states that he does not feel like going to groups. Continues to have very poor insight into his condition and need for treatment. He was fairly directable today and appeared to have improving hygiene and grooming. He continues to be bizarre at times. At this time patient denies any suicidal or homical ideations, intent or plan. Patient denies any auditory, visual hallucinations. Patient denies any side effects from the medications and has been compliant with meds. Mental Status Exam: General Appearance: Patient appears to be stated age is alert, superficially cooperative. Patient appears to have improving hygiene and grooming. Multiple tattoos Behavior: Patient is laying in his bed without any agitated behavior. Speech: Patient's speech is spontaneous, normal in volume, nonpressured. Mood/Affect: Patient reports their mood is "the same", Affect is constricted Suicidality/Homicidality: Patient denies having any homicidal ideation intent or plan. Denies any suicidal ideations intent or plan Perceptions: Patient denies any visual hallucinations and denies any auditory hallucinations Though content/process: Patient is bizarre. Multiple delusions, improving mildly. Memory and concentration: AOX3, grossly intact for the purposes of this session. Judgment and insight: Chronically poor Assessment Schizoaffective disorder, bipolar type Methamphetamine abuse Cannabis use disorder Nicotine dependence Plan: -Patient continues to meet criteria for inpatient psychiatric admission for symptom stabilization and safety. Patient has not signed medication consent and was placed in patient's chart. He is on active treatment order until 05/15/2021 and also on an active substance abuse treatment order. -Medications: Continue Zoloft 100 mg daily for mood/anxiety, Lamictal 100 mg 2 times a day for mood stabilization. Patient is currently on Haldol Decanoate 125 mg every 2 weeks with his next dose due on 03/28/21. benadryl 25mg qhs prn for insomnia. Pt was offered cogentin for tremors however he declined at this time. -When necessary Ativan and Haldol for agitation/aggression. -NRT - nicotine patch -SW on board for discharge planning. Encouraged the patient to participate in milieu. Patient's case was reviewed by the food and beverage order clerk who is agreeing to have patient transferred to [place]. Patient is set for transfer to [place] once bed becomes available. Recoverer spoke with dr. Fernandes from [facility] over the phone who states that he will attempt to follow up with his team and also with administration at [place] as to what the approximate waitlist/time will be and if need be then will need to figure out at alternative plan for discharge.
[2021-03-21] MEDS: diphenhydrAMINE 25 MG CAP PO PRN (22:48)
[2021-03-22] MEDS: SERTRALINE 100 MG TAB PO SCH (07:53)
[2021-03-22] MEDS: NICOTINE 14MG/24HR PATCH TRANSDERM SCH ×2 (07:53→08:57)
[2021-03-22] MEDS: PANTOPRAZOLE 40 MG TABLET PO SCH (07:53)
[2021-03-22] MEDS: lamoTRIgine 100 MG TAB PO SCH ×2 (07:53→21:16)
[2021-03-22] MEDS: NICOTINE POLACRILEX 2 MG GUM BUCCAL PRN ×2 (08:53→17:32)
[2021-03-22] MEDS: ACETAMINOPHEN TAB 325 MG TAB PO PRN (08:53)
[2021-03-22] MEDS ORDERED: diphenhydrAMINE 50 MG CAP PO PRN (09:28)
--- NOTE | 2021-03-22 09:32 | P.PN ---
Progress Note - Text Progress Note Date: 03/22/21 Interval History: Patient was seen initially wandering the hallways at the nurse's desk and appr oached automotive service writer in an aggressive manner this morning. He stated multiple times that he wants to [place] automotive service writer for prescribing him "meds I don't need". he was redirected by nursing staff and then later on approach to automotive service writer and apologized for his aggression towards him earlier. Patient was available to speak to automotive service writer in his room today. He claims that he has missed a court date for his substance use order. He claims that he was not able to sleep well last night and took Benadryl however claims that it did not help him much with sleep. He is denying any changes in his mood today. He states that he does not feel like going to groups. Continues to have very poor insight into his condition and need for treatment. He was fairly directable today and appeared to have improving hygiene and grooming. He continues to be bizarre at times. At this time patient denies any suicidal or homical ideations, intent or plan. Patient denies any auditory, visual hallucinations. Patient denies any side effects from the medications and has been compliant with meds. Mental Status Exam: General Appearance: Patient appears to be stated age is alert, superficially cooperative. Patient appears to have improving hygiene and grooming. Multiple tattoos Behavior: Patient is laying in his bed without any agitated behavior. Speech: Patient's speech is spontaneous, normal in volume, nonpressured. Mood/Affect: Patient reports their mood is "ok", Affect is constricted Suicidality/Homicidality: Patient denies having any homicidal ideation intent or plan. Denies any suicidal ideations intent or plan Perceptions: Patient denies any visual hallucinations and denies any auditory hallucinations Though content/process: Patient is bizarre. Multiple delusions, improving mildly. Memory and concentration: AOX3, grossly intact for the purposes of this session. Judgment and insight: Chronically poor Assessment Schizoaffective disorder, bipolar type Methamphetamine abuse Cannabis use disorder Nicotine dependence Plan: -Patient continues to meet criteria for inpatient psychiatric admission for symptom stabilization and safety. Patient has not signed medication consent and was placed in patient's chart. He is on active treatment order until 05/15/2021 and also on an active substance abuse treatment order. -Medications: Continue Zoloft 100 mg daily for mood/anxiety, Lamictal 100 mg 2 times a day for mood stabilization. Patient is currently on Haldol Decanoate 125 mg every 2 weeks with his next dose due on 03/28/21. benadryl 50 mg qhs prn for insomnia. Pt was offered cogentin for tremors however he declined at this time. -When necessary Ativan and Haldol for agitation/aggression. -NRT - nicotine patch -SW on board for discharge planning. Encouraged the patient to participate in milieu. Patient's case was reviewed by the formula clerk who is agreeing to have patient transferred to [place]. Patient is set for transfer to [place] once bed becomes available. Outside Sales Professional spoke with dr. Fernandes from [facility] over the phone who states that he will attempt to follow up with his team and also with administration at [place] as to what the approximate waitlist/time will be and if need be then will need to figure out at alternative plan for discharge.
[2021-03-22] MEDS: LORazepam 2 MG/ML INJ IM PRN (12:55)
[2021-03-23 07:01] VITALS: RESP 18
[2021-03-23] MEDS: SERTRALINE 100 MG TAB PO SCH (09:08)
[2021-03-23] MEDS: PANTOPRAZOLE 40 MG TABLET PO SCH (09:08)
[2021-03-23] MEDS: lamoTRIgine 100 MG TAB PO SCH ×2 (09:08→20:19)
[2021-03-23] MEDS: NICOTINE 14MG/24HR PATCH TRANSDERM SCH (09:08)
[2021-03-23] MEDS: NICOTINE POLACRILEX 2 MG GUM BUCCAL PRN ×3 (11:21→20:19)
--- NOTE | 2021-03-23 11:21 | P.PN ---
Progress Note - Text Progress Note Date: 03/23/21 Interval History: Patient was seen initially wandering the hallways and was agreeable to speak to magnetic tape typewriter operator today in his room. Patient claims that he received from the director of social work the access line number to call [facility] today. He states that he wants to go to rehab today and also asked questions about his discharge planning. He claims that he is feeling calmer today and not depressed or anxious. He was more respectful today of magnetic tape typewriter operator and apologized for being aggressive with him yesterday. He states that he did not take Benadryl last night however was able to sleep fairly well. He is denying any changes in his mood today. He states that he does not feel like going to groups. Continues to have very poor insight into his condition and need for treatment which is chronic. He was fairly directable today and appeared to have improving hygiene and grooming. At this time patient denies any suicidal or homical ideations, intent or plan. Patient denies any auditory, visual hallucinations. Patient denies any side effects from the medications and has been compliant with meds. Mental Status Exam: General Appearance: Patient appears to be stated age is alert, more cooperative today. Patient appears to have improving hygiene and grooming. Multiple tattoos Behavior: Patient is laying in his bed without any agitated behavior. Speech: Patient's speech is spontaneous, normal in volume, nonpressured. Mood/Affect: Patient reports their mood is "fine", Affect is constricted Suicidality/Homicidality: Patient denies having any homicidal ideation intent or plan. Denies any suicidal ideations intent or plan Perceptions: Patient denies any visual hallucinations and denies any auditory hallucinations Though content/process: Patient is bizarre, less so today. More goal oriented. Logical. Memory and concentration: AOX3, grossly intact for the purposes of this session. Judgment and insight: Chronically poor, improving mildly Assessment Schizoaffective disorder, bipolar type Methamphetamine abuse Cannabis use disorder Nicotine dependence Plan: -Patient continues to meet criteria for inpatient psychiatric admission for symptom stabilization and safety. Patient has not signed medication consent and was placed in patient's chart. He is on active treatment order until 05/15/2021 and also on an active substance abuse treatment order. -Medications: Continue Zoloft 100 mg daily for mood/anxiety, Lamictal 100 mg 2 times a day for mood stabilization. Patient is currently on Haldol Decanoate 125 mg every 2 weeks with his next dose due on 03/28/21. benadryl 50 mg qhs prn for insomnia. Pt was offered cogentin for tremors however he declined at this time. -When necessary Ativan and Haldol for agitation/aggression. -NRT - nicotine patch -SW on board for discharge planning. Encouraged the patient to participate in milieu. Dr Fernandes at [facility] would like patient to be discharged to crisis bed at [facility] tomorrow if patient is not accepted to [facility]. Patient will be calling the access line for rehab and will be sending a packet to [place] for rehab next week. Discharge tomorrow.
[2021-03-23] MEDS: ACETAMINOPHEN TAB 325 MG TAB PO PRN (15:09)
[2021-03-24 06:57] VITALS: BP 129/76; PULSE 66; TEMP 97.8
[2021-03-24] MEDS: NICOTINE 14MG/24HR PATCH TRANSDERM SCH (08:12)
[2021-03-24] MEDS: PANTOPRAZOLE 40 MG TABLET PO SCH (08:12)
[2021-03-24] MEDS: SERTRALINE 100 MG TAB PO SCH (08:12)
[2021-03-24] MEDS: lamoTRIgine 100 MG TAB PO SCH (08:12)
--- NOTE | 2021-03-24 10:03 | P.DS ---
Providers Date of admission: 02/19/21 01:47 Expected date of discharge: 03/24/21 Attending physician: Lion Hughes MD Consults: 02/19/21 01:49 Consult Physician Routine Consulting Provider: Leonela Green Consult Reason/Comments: For H & P for Medical Follow Up Do you want consulting provider notified?: Yes Primary care physician: [facility] - Discharge Diagnosis(es) (1) Schizoaffective disorder, bipolar type Current Visit: Yes Status: Acute Priority: High (2) Methamphetamine abuse Current Visit: Yes Status: Acute Priority: High (3) Cannabis abuse Current Visit: Yes Status: Acute Priority: Medium (4) Nicotine dependence Current Visit: Yes Status: Acute Priority: Low Hospital Course: Admission HPI: Admission note was completed by Dr. Sheehan "the patient is a 45-year-old male. He has had recent past psychiatric hospitalizations including in this facility on 02/07/2021. He is readmitted and is under a treatment order. The patient walked to the ED complaining of having hallucinations and horrifying delusions after having ingested psychedelics. The patient presents similar to his previous admissions. He has been living at [facility]. He has presented to the ED number of times with complaints relating to alcohol and drug use. On the day of admission he presented to the ED at 0400 complaining of hallucinations and anxiety. He was able to contract for safety and discharge home. He again presented yesterday at 11 PM stating that he was believing he was getting people just by thinking about them. He was very depressed. He was having auditory hallucinations and delusions. It is noted that the patient is followed by [facility] and currently has been on Haldol Decanoate 125 mg IM every 2 weeks. Noted that he had previous admissions from January 26 to February 03. At that time a plan was set up for him to take a cab to [facility] to enter a substance abuse treatment program. When he departed the hospital he declined taking [facility]. He noted that this happened about 2:30 in the afternoon and he had several contacts with [facility] where they indicated that he needed to be at the facility by 3:00 or they would not be able to admit him. He said that was the reason why he ended up not following through at the time. For his most recent admission, he was discharged on February 16 and had a follow-up appointment set up with [facility] on that day. Discharge psychotropic medications include Haldol Decanoate 125 mg IM and Benadryl 25 mg at bedtime. Today the patient states that his biggest issue is that he continues to struggle with abuse of substances. He says that he gets that he collects various natural items and then turns them into psychedelics. He was vague about specifics, though said one thing he used was picking out mushrooms that were growing outdoors around his house. He was unable to provide further details. He made the statement that he worries about making these drugs and then giving these drugs to various people although again he did not provide specifics. He said he has been sleeping poorly. He acknowledges hallucinations and delusions. He said he was very fearful about the voices that he was experiencing when he presented to the ED. He is admitted for further evaluation." Hospital course: Upon admission to the unit patient was initially bizarre and psychotic. Patient was however are really on a active treatment order until 05/15/2021 and also on an active substance abuse treatment order. Patient got along well with other patients on the unit and followed unit protocol. Patient did have instances where he was aggressive and agitated and required prn medications. Patient was compliant with the medications and denied any side effects throughout hospital course. Patient was started on Lamictal 100 mg twice a day for mood stabilization, Zoloft 100 mg daily for mood/anxiety, and continued on with Haldol Decanoate 125 mg IM every 2 weeks and the last dose was given on 03/14 and next dose will be due on 03/28/21. Patient was also started on Benadryl when necessary for sleep. Patient is noted to have chronic tremors in both upper limbs and was offered several times Cogentin and Benadryl and other treatment for this however declined them. Patient spoke of his stressors and engaged in therapy both group and individual. Patient was also seen by medical team for history and physical exam. Throughout the course of the hospitalization patient gradually improved with regards to mood, psychosis, anxiety, sleep and return back to his baseline level of functioning. Patient remains to have chronically poor insight and judgment. On the day of discharge patient denied any suicidal or homicidal ideations intent or plan denied any auditory or visual hallucinations. Patient endorsed wanting to live for his sobriety and his future. The patient denied any access to guns or weapons. Patient denied any paranoia and did not endorse any delusions. Patient does have a significant history of substance abuse and was counseled on abstaining from all substances including alcohol and marijuana. Patient called the access line and has an appointment at [facility] substance rehab on Saturday and will be staying at [facility] until he is accepted into rehab. Initially the plan was to send patient to [facility] for long-term psychiatric care however due to excessive waitlist, [facility] and act decided that patient should be attempted to be treated in the community instead of waiting in the hospital for a bed. Patient was also counseled on the medications and need for regular compliance and was encouraged to follow-up with their outpatient appointment for mental health and also for primary care. Mental status exam: General Appearance: Patient appears to be thin, stated age is alert, pleasant, and cooperative. Patient is in no acute distress and has improved hygiene and grooming Behavior: Patient is calmly seated without any agitated behavior. Speech: Patient's speech is fluent and nonpressured. Mood/Affect: Patient reports their mood is "better", affect is congruent and euthymic. Suicidality/Homicidality: Patient denies having any suicidal or homicidal ideat ion intent or plan. Perceptions: Patient denies any auditory or visual hallucinations. Though content/process: There is no evidence of any delusional thought content and thought process is linear and goal-directed. Memory and concentration: AOX3, grossly intact for the purposes of this session. Can spell "WORLD" backwards correctly. Judgment and insight: chronically poor, however has improved with guarded prognosis Impression: Schizoaffective disorder, bipolar type Methamphetamine abuse Cannabis use disorder Nicotine dependence Plan: -Continue with discharge today as patient has improved and stabilized psychiatrically and is not currently an imminent threat to himself and/or others. Patient will remain at chronically elevated risk for harm to self and/or others due to his chronically poor insight/judgment, impulsivity and polysubstance abuse. -Continue medications: Zoloft 100 mg daily for mood/anxiety, Lamictal 100 mg twice a day for mood stabilization, Haldol Decanoate 125 mg every 2 weeks with the last dose given on 03/14 and next dose to be given on 03/28/21. Benadryl 25 mg daily at bedtime when necessary for insomnia. -Patient was counseled on the need for medication compliance and appropriate follow-up at mental health and also primary care for medical issues. Patient verbalized understanding and agreed. -Social work to arrange for and conduct family meeting to ensure safety upon discharge and answer any questions/concerns. Social work also to arrange for patients follow up appointments with [facility] for psychiatric care along with follow up with primary care provider. Patient is followed by the act team. He has a intake appointment at [facility] for substance rehab on Saturday and will be staying at [facility] until then. -Patient counseled on abstaining from recreational drugs and marijuana and alcohol. Was informed/educated on the adverse effects on their physical and mental health. Patient verbally agreed and understood. -Patient was instructed to return to the hospital or seek immediate medical care if their psychiatric or medical symptoms do worsen or reoccur. Allergies Allergy/AdvReac Type Severity Reaction Status Date / Time cat dander Allergy Itching Verified 02/18/21 22:18 fluphenazine [From Prolixin] AdvReac seizures Verified 02/18/21 22:18 oxcarbazepine AdvReac seizures Verified 02/18/21 22:18 [From Trileptal] paliperidone [From Invega] AdvReac delusional Verified 02/18/21 22:18 risperidone [From Risperdal] AdvReac seizures Verified 02/18/21 22:18 Laboratory Results WBC 6.4 k/uL (3.8-10.6) 02/19/21 10:59 RBC 4.91 m/uL (4.30-5.90) 02/19/21 10:59 Hgb 14.3 gm/dL (13.0-17.5) 02/19/21 10:59 Hct 42.2 % (39.0-53.0) 02/19/21 10:59 MCV 86.0 fL (80.0-100.0) 02/19/21 10:59 MCH 29.2 pg (25.0-35.0) 02/19/21 10:59 MCHC 34.0 g/dL (31.0-37.0) 02/19/21 10:59 RDW 15.0 % (11.5-15.5) 02/19/21 10:59 Plt Count 253 k/uL (150-450) 02/19/21 10:59 MPV 6.5 02/19/21 10:59 Neutrophils % 61 % 02/19/21 10:59 Lymphocytes % 23 % 02/19/21 10:59 Monocytes % 7 % 02/19/21 10:59 Eosinophils % 7 % 02/19/21 10:59 Basophils % 1 % 02/19/21 10:59 Neutrophils # 3.9 k/uL (1.3-7.7) 02/19/21 10:59 Lymphocytes # 1.5 k/uL (1.0-4.8) 02/19/21 10:59 Monocytes # 0.5 k/uL (0-1.0) 02/19/21 10:59 Eosinophils # 0.4 k/uL (0-0.7) 02/19/21 10:59 Basophils # 0.1 k/uL (0-0.2) 02/19/21 10:59 Sodium 144 mmol/L (137-145) 02/19/21 10:59 Potassium 4.5 mmol/L (3.5-5.1) 02/19/21 10:59 Chloride 112 mmol/L (98-107) H 02/19/21 10:59 Carbon Dioxide 25 mmol/L (22-30) 02/19/21 10:59 Anion Gap 7 mmol/L 02/19/21 10:59 BUN 12 mg/dL (9-20) 02/19/21 10:59 Creatinine 0.91 mg/dL (0.66-1.25) 02/19/21 10:59 Est GFR (CKD-EPI)AfAm >90 (>60 ml/min/1.73 sqM) 02/19/21 10:59 Est GFR (CKD-EPI)NonAf >90 (>60 ml/min/1.73 sqM) 02/19/21 10:59 Glucose 97 mg/dL (74-99) 02/19/21 10:[address] Glu mg/dL 117 02/19/21 10:59 Hemoglobin A1c 5.7 % (4.0-6.0) 02/19/21 10:59 Calcium 9.2 mg/dL (8.4-10.2) 02/19/21 10:59 Total Bilirubin 0.2 mg/dL (0.2-1.3) 02/19/21 10:59 AST 46 U/L (17-59) 02/19/21 10:59 ALT 51 U/L (4-49) H 02/19/21 10:59 Alkaline Phosphatase 79 U/L (38-126) 02/19/21 10:59 Total Protein 7.0 g/dL (6.3-8.2) 02/19/21 10:59 Albumin 3.9 g/dL (3.5-5.0) 02/19/21 10:59 TSH 0.689 mIU/L (0.465-4.680) 02/19/21 10:59 Urine Color Yellow 03/15/21 16:00 Urine Appearance Clear (Clear) 03/15/21 16:00 Urine pH 6.0 (5.0-8.0) 03/15/21 16:00 Ur Specific Hunt 1.026 (1.001-1.035) 03/15/21 16:00 Urine Protein Negative (Negative) 03/15/21 16:00 Urine Glucose (UA) Negative (Negative) 03/15/21 16:00 Urine Ketones Negative (Negative) 03/15/21 16:00 Urine Blood Negative (Negative) 03/15/21 16:00 Urine Nitrite Negative (Negative) 03/15/21 16:00 Urine Bilirubin Negative (Negative) 03/15/21 16:00 Urine Urobilinogen <2.0 mg/dL (<2.0) 03/15/21 16:00 Ur Leukocyte Esterase Negative (Negative) 03/15/21 16:00 Urine Opiates Screen Not Detected (NotDetected) 02/19/21 00:48 Ur Oxycodone Screen Not Detected (NotDetected) 02/19/21 00:48 Urine Methadone Screen Not Detected (NotDetected) 02/19/21 00:48 Ur Propoxyphene Screen Not Detected (NotDetected) 02/19/21 00:48 Ur Barbiturates Screen Not Detected (NotDetected) 02/19/21 00:48 U Tricyclic Antidepress Not Detected (NotDetected) 02/19/21 00:48 Ur Phencyclidine Scrn Not Detected (NotDetected) 02/19/21 00:48 Ur Amphetamines Screen Not Detected (NotDetected) 02/19/21 00:48 U Methamphetamines Scrn Not Detected (NotDetected) 02/19/21 00:48 U Benzodiazepines Scrn Not Detected (NotDetected) 02/19/21 00:48 Urine Cocaine Screen Not Detected (NotDetected) 02/19/21 00:48 U Marijuana (THC) Screen Detected (NotDetected) H 02/19/21 00:48 Coronavirus (PCR) Not Detected (Not Detectd) 02/19/21 00:48 Vital Signs Temp 97.8 F 03/24/21 06:37 Pulse 66 03/24/21 06:37 Resp 18 03/24/21 06:37 BP 129/76 03/24/21 06:37 Pulse Ox 96 03/14/21 07:04 Patient Condition at Discharge: Fair Plan - Discharge Summary Discharge Rx Participant: No New Discharge Prescriptions: New Nicotine 14Mg/24Hr Patch [Habitrol] 1 patch TRANSDERM DAILY 14 Days patch Pantoprazole [Protonix] 40 mg PO AC-BRKFST 30 Days tablet. Nicotine Polacrilex [Nicorette] 4 mg BUCCAL Q6HR PRN 28 Days gum PRN Reason: Nicotine Cravings Continue lamoTRIgine [LaMICtal] 100 mg PO BID 30 Days tab Sertraline [Zoloft] 100 mg PO DAILY 30 Days tab Haloperidol Decanoate [Haldol D] 125 mg IM [id number] #1 vial Changed diphenhydrAMINE [Benadryl] 25 mg PO HS PRN 30 Days cap PRN Reason: Insomnia Discontinued Pantoprazole [Protonix] 40 mg PO AC-BRKFST 30 Days tablet. Nicotine 21Mg/24Hr Patch [Habitrol] 1 patch TRANSDERM DAILY PRN 30 Days patch PRN Reason: Nicotine Cravings Discharge Medication List Haloperidol Decanoate [Haldol D] 125 mg IM [id number] #[id number] vial 03/24/21 [Rx] Nicotine 14Mg/24Hr Patch [Habitrol] 1 patch TRANSDERM DAILY 14 Days patch 03/24/21 [Rx] Nicotine Polacrilex [Nicorette] 4 mg BUCCAL Q6HR PRN 28 Days gum 03/24/21 [Rx] Pantoprazole [Protonix] 40 mg PO AC-BRKFST 30 Days tablet. 03/24/21 [Rx] Sertraline [Zoloft] 100 mg PO DAILY 30 Days tab 03/24/21 [Rx] diphenhydrAMINE [Benadryl] 25 mg PO HS PRN 30 Days cap 03/24/21 [Rx] lamoTRIgine [LaMICtal] 100 mg PO BID 30 Days tab 03/24/21 [Rx] Follow up Appointment(s)/Referral(s): [facility] [Primary Care Provider] - 1-2 days Activity/Diet/Wound Care/Special Instructions: Activity and diet as tolerated. Avoid the use of street drugs and alcohol. Take all medications as prescribed. When you are in need of refills on your medications please contact your medical provider and/or outpatient psychiatrist to have this done. Please go to scheduled outpatient appointment for aftercare treatment. If symptoms return or become worse, call the crisis line at and/or go to the nearest emergency room for evaluation. Discharge Disposition: OTHER INSTITUTION NOT DEFINED
== END 2021-03-24 13:11 | disposition other institution (70) | DRG 885 ==
LOC: EC 22:09 → 3MHU 02-19 01:47
PROVIDERS: ADMIT Psychiatry & Neurology Psychiatry; ATTEND Psychiatry & Neurology Psychiatry
DX: F25.0 Schizoaffective disorder, bipolar type (principal); F23 Brief psychotic disorder; R45.851 Suicidal ideations; K21.9 Gastro-esophageal reflux disease without esophagitis; B18.2 Chronic viral hepatitis C; Z20.822 Contact with and (suspected) exposure to COVID-19; G40.909 Epilepsy, unspecified, not intractable, without status epilepticus; F15.10 Other stimulant abuse, uncomplicated; F12.10 Cannabis abuse, uncomplicated; M41.9 Scoliosis, unspecified; F17.210 Nicotine dependence, cigarettes, uncomplicated; G25.81 Restless legs syndrome; R25.1 Tremor, unspecified; G47.00 Insomnia, unspecified; F16.90 Hallucinogen use, unspecified, uncomplicated; F41.9 Anxiety disorder, unspecified; Z79.899 Other long term (current) drug therapy
CPT/HCPCS: 80053; 80306; 81003; 82075; 83036; 84443; 85025; 87635; 99285

== ENCOUNTER 2021-05-21 20:56 | Emergency (ER) | payer MEDICARE, OTHER ==
[2021-05-21 21:07] VITALS: BP 147/92; PULSE 94; RESP 16; TEMP 97.1
[2021-05-21] MEDS ORDERED: ACET/COD 300 MG/30 MG STARTER PACK 6 TAB BTL PO STA (21:30)
--- NOTE | 2021-05-21 21:57 | ED ---
General Adult HPI - General Chief complaint: Dental/Oral Stated complaint: tooth pain Time Seen by Provider: 05/21/21 21:10 Source: patient, RN notes reviewed Mode of arrival: ambulatory Limitations: no limitations - History of Present Illness Initial comments: Patient is a 45-year-old male that presents to the emergency department complaining of mouth pain. He notes he has a follow-up with his dentist tomorrow but needs some pain medication to get him through. She denied any other issues or complaints at this time. He was otherwise a well-appearing 45-year-old male in no apparent distress or pain. He denied any chest pain shortness of breath headache nausea vomiting diarrhea constipation fever fatigue chills difficulty eating or swallowing. - Related Data Previous Rx's Medication Instructions Recorded Haloperidol Decanoate [Haldol D] 125 mg IM [id number] #1 vial 03/24/21 Nicotine 14Mg/24Hr Patch [Habitrol] 1 patch TRANSDERM DAILY 14 Days 03/24/21 patch Nicotine Gum (Polacrilex) 4 mg BUCCAL Q6HR PRN 28 Days gum 03/24/21 [Nicorette] Pantoprazole [Protonix] 40 mg PO AC-BRKFST 30 Days 03/24/21 tablet. Sertraline [Zoloft] 100 mg PO DAILY 30 Days tab 03/24/21 diphenhydrAMINE [Benadryl] 25 mg PO HS PRN 30 Days cap 03/24/21 lamoTRIgine [LaMICtal] 100 mg PO BID 30 Days tab 03/24/21 Allergies Allergy/AdvReac Type Severity Reaction Status Date / Time cat dander Allergy Itching Verified 05/21/21 21:04 fluphenazine [From Prolixin] AdvReac seizures Verified 05/21/21 21:04 oxcarbazepine AdvReac seizures Verified 05/21/21 21:04 [From Trileptal] paliperidone [From Invega] AdvReac delusional Verified 05/21/21 21:04 risperidone [From Risperdal] AdvReac seizures Verified 05/21/21 21:04 Review of Systems ROS Statement: Those systems with pertinent positive or pertinent negative responses have been documented in the HPI. ROS Other: All systems not noted in ROS Statement are negative. Past Medical History Past Medical History: GERD/Reflux, Musculoskeletal Disorder, Seizure Disorder Additional Past Medical History / Comment(s): scoliosis, herpes, hiatal hernia, migraines, Hepatitis C History of Any Multi-Drug Resistant Organisms: None Reported Past Surgical History: No Surgical Hx Reported Additional Past Surgical History / Comment(s): EGD Past Anesthesia/Blood Transfusion Reactions: No Reported Reaction Past Psychological History: Anxiety, Bipolar, Depression, Schizoaffective Disorder Smoking Status: Current every day smoker Past Alcohol Use History: None Reported Past Drug Use History: Cocaine, Marijuana, Methamphetamine - Past Family History Mother History Unknown: Yes Additional Family Medical History / Comment(s): from suicide attempt Father History Unknown: Yes Additional Family Medical History / Comment(s): Reports that he is currently in the stages of dying- but wont clarify further. Inititally the patient stated his father was . General Exam Limitations: no limitations General appearance: alert, in no apparent distress Head exam: Present: atraumatic, normocephalic, normal inspection Eye exam: Present: normal appearance, PERRL, EOMI. Absent: scleral icterus, conjunctival injection, periorbital swelling ENT exam: Present: normal exam, mucous membranes moist, other (Poor dental hygiene) Neck exam: Present: normal inspection Respiratory exam: Present: normal lung sounds bilaterally. Absent: respiratory distress, wheezes, rales, rhonchi, stridor Cardiovascular Exam: Present: regular rate, normal rhythm, normal heart sounds. Absent: systolic murmur, diastolic murmur, rubs, gallop, clicks Extremities exam: Present: normal inspection, full ROM, normal capillary refill. Absent: tenderness, pedal edema, joint swelling, calf tenderness Neurological exam: Present: alert, oriented X3 Psychiatric exam: Present: normal affect, normal mood Skin exam: Present: warm, dry, intact, normal color. Absent: rash Course Vital Signs 05/21/21 21:05 Temperature 97.1 F L Pulse Rate 94 Respiratory 16 Rate Blood Pressure 147/92 O2 Sat by Pulse 94 L Oximetry Medical Decision Making - Medical Decision Making 45-year-old male stating that he wanted symptom medic control of his mouth pain until his dentist appointment tomorrow. Tylenol 3 starter pack ordered. Case discussed with Dr. Martinez, patient discharge home. Disposition Clinical Impression: Pain, dental Disposition: HOME SELF-CARE Condition: Stable Instructions (If sedation given, give patient instructions): Toothache (ED) Additional Instructions: Please return to the Emergency Department if symptoms worsen or any other concerns. Follow-up with dentist as planned tomorrow. Take Tylenol 3 as prescribed. Is patient prescribed a controlled substance at d/c from ED?: No Referrals: [facility] [Primary Care Provider] - 1-2 days Time of Disposition: 21:57
== END 2021-05-21 22:04 | disposition home or self-care (01) ==
LOC: EC 20:56
DX: K08.89 Other specified disorders of teeth and supporting structures (principal); K21.9 Gastro-esophageal reflux disease without esophagitis; F41.9 Anxiety disorder, unspecified; F31.9 Bipolar disorder, unspecified; F25.9 Schizoaffective disorder, unspecified; F17.200 Nicotine dependence, unspecified, uncomplicated; F12.90 Cannabis use, unspecified, uncomplicated; Z88.1 Allergy status to other antibiotic agents
CPT/HCPCS: 99282

== ENCOUNTER 2021-09-14 00:43 | Emergency (ER) | payer MEDICARE, OTHER ==
[2021-09-14 00:49] VITALS: TEMP 98.7
[2021-09-14] MEDS ORDERED: SODIUM CHLORIDE 0.9% 1,000 ML IV STA (01:04)
--- NOTE | 2021-09-14 01:08 | ED ---
Anxiety HPI - General Chief Complaint: Anxiety Stated Complaint: Anxiety Time Seen by Provider: 09/14/21 00:57 Source: patient, RN notes reviewed Mode of arrival: ambulatory - History of Present Illness Initial Comments: This is a resident 45-year-old male with a history of psychosis, schizoaffective disorder, depression, and anxiety. Patient presents to the emergency department today stating that his mouth is been bothering him. Patient states that he eats a lot of prickly Cacti. Patient states that since then he has had a white coating on his tongue which is somewhat irritated. Patient also feels like he has plugged ears. Patient states he is quite anxious about the feeling on his tongue. He denies any chest pain or shortness of breath. He denies any illicit drug abuse. Patient does admit to being undomiciled. MD Complaint: anxiety - Related Data Home Medications: Previous Rx's Medication Instructions Recorded Haloperidol Decanoate [Haldol D] 125 mg IM [id number] #1 vial 03/24/21 Nicotine 14Mg/24Hr Patch [Habitrol] 1 patch TRANSDERM DAILY 14 Days 03/24/21 patch Nicotine Gum (Polacrilex) 4 mg BUCCAL Q6HR PRN 28 Days gum 03/24/21 [Nicorette] Pantoprazole [Protonix] 40 mg PO [id number] 30 Days 03/24/21 tablet. Sertraline [Zoloft] 100 mg PO DAILY 30 Days tab 03/24/21 diphenhydrAMINE [Benadryl] 25 mg PO HS PRN 30 Days cap 03/24/21 lamoTRIgine [LaMICtal] 100 mg PO BID 30 Days tab 03/24/21 Allergies/Adverse Reactions: Allergies Allergy/AdvReac Type Severity Reaction Status Date / Time cat dander Allergy Itching Verified 09/14/21 00:49 fluphenazine [From Prolixin] AdvReac seizures Verified 09/14/21 00:49 oxcarbazepine AdvReac seizures Verified 09/14/21 00:49 [From Trileptal] paliperidone [From Invega] AdvReac delusional Verified 09/14/21 00:49 risperidone [From Risperdal] AdvReac seizures Verified 09/14/21 00:49 Review of Systems ROS Statement: Those systems with pertinent positive or pertinent negative responses have been documented in the HPI. ROS Other: All systems not noted in ROS Statement are negative. Past Medical History Past Medical History: GERD/Reflux, Musculoskeletal Disorder, Seizure Disorder Additional Past Medical History / Comment(s): scoliosis, herpes, hiatal hernia, migraines, Hepatitis C History of Any Multi-Drug Resistant Organisms: None Reported Past Surgical History: No Surgical Hx Reported Additional Past Surgical History / Comment(s): EGD Past Anesthesia/Blood Transfusion Reactions: No Reported Reaction Past Psychological History: Anxiety, Bipolar, Depression, Schizoaffective Disorder Smoking Status: Current every day smoker Past Alcohol Use History: None Reported Past Drug Use History: Cocaine, Marijuana, Methamphetamine - Past Family History Mother History Unknown: Yes Additional Family Medical History / Comment(s): from suicide attempt Father History Unknown: Yes Additional Family Medical History / Comment(s): Reports that he is currently in the stages of dying- but wont clarify further. Inititally the patient stated his father was . General Exam - General Exam Comments Initial Comments: Well-developed male in no significant distress as I am assessing him. Patient does have somewhat of a inappropriate affect. Cranial nerves II through XII are intact. Patient does not appear to be ill or toxic. Limitations: no limitations General appearance: alert, anxious Head exam: Present: atraumatic, normocephalic, normal inspection Eye exam: Present: normal appearance, PERRL, EOMI. Absent: scleral icterus, conjunctival injection, periorbital swelling ENT exam: Present: mucous membranes dry, mucous membranes moist, TM's normal bilaterally, normal external ear exam Neck exam: Present: normal inspection. Absent: tenderness, meningismus, lym phadenopathy Respiratory exam: Present: normal lung sounds bilaterally. Absent: respiratory distress, wheezes, rales, rhonchi, stridor Cardiovascular Exam: Present: normal rhythm, tachycardia, normal heart sounds. Absent: systolic murmur, diastolic murmur, rubs, gallop, clicks GI/Abdominal exam: Present: soft, normal bowel sounds. Absent: distended, tenderness, guarding, rebound, rigid Extremities exam: Present: normal inspection, full ROM, normal capillary refill. Absent: tenderness, pedal edema, joint swelling, calf tenderness Back exam: Present: normal inspection Neurological exam: Present: alert, oriented X3, CN II-XII intact Psychiatric exam: Present: normal mood, flat affect. Absent: homicidal ideation, suicidal ideation Skin exam: Present: warm, dry, intact, normal color. Absent: rash Course Vital Signs 09/14/21 00:44 Temperature 98.7 F Pulse Rate 107 H Respiratory 22 Rate Blood Pressure 151/91 O2 Sat by Pulse 97 Oximetry - Reevaluation(s) Reevaluation #1: 09/14/21 02:30 Patient reevaluated and is resting comfortably in the room. No distress. Vital signs stable, patient afebrile. Medical Decision Making - Medical Decision Making Patient presents with symptoms of anxiety. Patient has appearance of dehydra tion on physical examination. Basic laboratory work ordered. Hydration order. Infectious process noted. Patient did, positive for marijuana, amphetamines, and methamphetamine. Patient currently undomiciled. Reevaluated prior to discharge and in no distress. The case was discussed in detail with ED attending physician. Presentation, findings, treatment plan discussed in detail. - Lab Data Result diagrams: 09/14/21 01:04 09/14/21 01:04 Lab Results 09/14/21 09/14/21 09/14/21 Range/Units 01:04 01:04 01:04 WBC 7.0 (3.8-10.6) k/uL RBC 4.20 L (4.30-5.90) m/uL Hgb 12.2 L (13.0-17.5) gm/dL Hct 37.2 L (39.0-53.0) % MCV 88.7 (80.0-100.0) fL MCH 29.2 (25.0-35.0) pg MCHC 32.9 (31.0-37.0) g/dL RDW 15.0 (11.5-15.5) % Plt Count 284 (150-450) k/uL MPV 7.4 Neutrophils % 65 % Lymphocytes % 19 % Monocytes % 8 % Eosinophils % 6 % Basophils % 1 % Neutrophils # 4.5 (1.3-7.7) k/uL Lymphocytes # 1.3 (1.0-4.8) k/uL Monocytes # 0.6 (0-1.0) k/uL Eosinophils # 0.4 (0-0.7) k/uL Basophils # 0.0 (0-0.2) k/uL Sodium 139 (137-145) mmol/L Potassium 4.3 (3.5-5.1) mmol/L Chloride 103 (98-107) mmol/L Carbon Dioxide 27 (22-30) mmol/L Anion Gap 9 mmol/L BUN 14 (9-20) mg/dL Creatinine 0.90 (0.66-1.25) mg/dL Est GFR (CKD-EPI)AfAm >90 (>60 ml/min/1.73 sqM) Est GFR (CKD-EPI)NonAf >90 (>60 ml/min/1.73 sqM) Glucose 116 H (74-99) mg/dL POC Glucose (mg/dL) (75-99) mg/dL POC Glu [employer] ID Calcium 9.7 (8.4-10.2) mg/dL Total Bilirubin 0.4 (0.2-1.3) mg/dL AST 48 (17-59) U/L ALT 76 H (4-49) U/L Alkaline Phosphatase 88 (38-126) U/L Ammonia (<30) umol/L Total Protein 7.0 (6.3-8.2) g/dL Albumin 4.1 (3.5-5.0) g/dL Urine Opiates Screen Not Detected (NotDetected) Ur Oxycodone Screen Not Detected (NotDetected) Urine Methadone Screen Not Detected (NotDetected) Ur Propoxyphene Screen Not Detected (NotDetected) Ur Barbiturates Screen Not Detected (NotDetected) U Tricyclic Antidepress Not Detected (NotDetected) Ur Phencyclidine Scrn Not Detected (NotDetected) Ur Amphetamines Screen Detected H (NotDetected) U Methamphetamines Scrn Detected H (NotDetected) U Benzodiazepines Scrn Not Detected (NotDetected) Urine Cocaine Screen Not Detected (NotDetected) U Marijuana (THC) Screen Detected H (NotDetected) Serum Alcohol <10 mg/dL 09/14/21 09/14/21 Range/Units 01:34 01:39 WBC (3.8-10.6) k/uL RBC (4.30-5.90) m/uL Hgb (13.0-17.5) gm/dL Hct (39.0-53.0) % MCV (80.0-100.0) fL MCH (25.0-35.0) pg MCHC (31.0-37.0) g/dL RDW (11.5-15.5) % Plt Count (150-450) k/uL MPV Neutrophils % % Lymphocytes % % Monocytes % % Eosinophils % % Basophils % % Neutrophils # (1.3-7.7) k/uL Lymphocytes # (1.0-4.8) k/uL Monocytes # (0-1.0) k/uL Eosinophils # (0-0.7) k/uL Basophils # (0-0.2) k/uL Sodium (137-145) mmol/L Potassium (3.5-5.1) mmol/L Chloride (98-107) mmol/L Carbon Dioxide (22-30) mmol/L Anion Gap mmol/L BUN (9-20) mg/dL Creatinine (0.66-1.25) mg/dL Est GFR (CKD-EPI)AfAm (>60 ml/min/1.73 sqM) Est GFR (CKD-EPI)NonAf (>60 ml/min/1.73 sqM) Glucose (74-99) mg/dL POC Glucose (mg/dL) 118 H (75-99) mg/dL POC Glu [employer] ID [place] Emerson Calcium (8.4-10.2) mg/dL Total Bilirubin (0.2-1.3) mg/dL AST (17-59) U/L ALT (4-49) U/L Alkaline Phosphatase (38-126) U/L Ammonia 26 (<30) umol/L Total Protein (6.3-8.2) g/dL Albumin (3.5-5.0) g/dL Urine Opiates Screen (NotDetected) Ur Oxycodone Screen (NotDetected) Urine Methadone Screen (NotDetected) Ur Propoxyphene Screen (NotDetected) Ur Barbiturates Screen (NotDetected) U Tricyclic Antidepress (NotDetected) Ur Phencyclidine Scrn (NotDetected) Ur Amphetamines Screen (NotDetected) U Methamphetamines Scrn (NotDetected) U Benzodiazepines Scrn (NotDetected) Urine Cocaine Screen (NotDetected) U Marijuana (THC) Screen (NotDetected) Serum Alcohol mg/dL Disposition Clinical Impression: Anxiety disorder, Dehydration, Polysubstance abuse, Poor compliance with medication Disposition: HOME SELF-CARE Condition: Stable Instructions (If sedation given, give patient instructions): Generalized Anxiety Disorder (ED) Additional Instructions: Follow-up with your regular physician as directed. Return to the ER immediately if any symptoms worsen, new symptoms arise, or any other problems develop. Is patient prescribed a controlled substance at d/c from ED?: No Referrals: [facility] [NON-STAFF] - 1-2 days Time of Disposition: 02:35
[2021-09-14 01:35] LABS: Glucose,Whole Blood 118 mg/dL (75-99)
[2021-09-14 01:57] LABS: Basophils % (A) 1 %; Eosinophils # (A) 0.4 k/uL (0-0.7); Eosinophils % (A) 6 %; HCT 37.2 % (39.0-53.0); HGB 12.2 gm/dL (13.0-17.5); Lymphocytes # (A) 1.3 k/uL (1.0-4.8); Lymphocytes % (A) 19 %; MCH 29.2 pg (25.0-35.0); MCHC 32.9 g/dL (31.0-37.0); MCV 88.7 fL (80.0-100.0); Mean Platelet Volume 7.4; Monocytes # (A) 0.6 k/uL (0-1.0); Monocytes % (A) 8 %; Neutrophils # (A) 4.5 k/uL (1.3-7.7); Neutrophils % (A) 65 %; Platelet Count 284 k/uL (150-450)
[2021-09-14 02:07] LABS: Amphetamine Screen,Urine Detected (NotDetected); Barbiturate Screen,Urine Not Detected (NotDetected); Benzodiazepines Screen,Urine Not Detected (NotDetected); Cocaine Screen,Urine Not Detected (NotDetected); Methadone Screen, Urine Not Detected (NotDetected); Opiate Screen,Urine Not Detected (NotDetected); Oxycodone Screen, Urine Not Detected (NotDetected); Phencyclidine Screen,Urine Not Detected (NotDetected); Tricyclic Antidepressant,Urine Not Detected (NotDetected); Urn Cannabinoid Scrn Detected (NotDetected)
[2021-09-14 02:11] LABS: ALT 76 U/L (4-49); AST 48 U/L (17-59); African American GFR (CKD) >90 (>60 ml/min/1.73 sqM); Albumin 4.1 g/dL (3.5-5.0); Alcohol <10 mg/dL; Alkaline Phosphatase 88 U/L (38-126); Anion Gap 9 mmol/L; Blood Urea Nitrogen 14 mg/dL (9-20); Calcium 9.7 mg/dL (8.4-10.2); Carbon Dioxide 27 mmol/L (22-30); Chloride 103 mmol/L (98-107); Glucose 116 mg/dL (74-99); Non-African American GFR(CKD) >90 (>60 ml/min/1.73 sqM); Potassium 4.3 mmol/L (3.5-5.1); Sodium 139 mmol/L (137-145); Total Bilirubin 0.4 mg/dL (0.2-1.3)
[2021-09-14 02:57] VITALS: BP 149/60; PULSE 80; RESP 18
== END 2021-09-14 02:54 | disposition home or self-care (01) ==
LOC: EC 00:43
DX: F41.9 Anxiety disorder, unspecified (principal); E86.0 Dehydration; F19.10 Other psychoactive substance abuse, uncomplicated; Z91.19 Patient's noncompliance with other medical treatment and regimen; K21.9 Gastro-esophageal reflux disease without esophagitis; F31.9 Bipolar disorder, unspecified; F25.9 Schizoaffective disorder, unspecified; F17.200 Nicotine dependence, unspecified, uncomplicated; F12.90 Cannabis use, unspecified, uncomplicated
CPT/HCPCS: 99283; 96360; 36415; 80053; 82140; 84443; 85025; 80306; G0480; 80320

== ENCOUNTER 2021-11-29 11:06 | Emergency (ER) | payer MEDICARE, OTHER ==
[2021-11-29 11:26] VITALS: BP 147/95; PULSE 87; RESP 18; TEMP 97.8
--- NOTE | 2021-11-29 14:54 | ED ---
Psych HPI - General Source: patient, RN notes reviewed Mode of arrival: ambulatory Limitations: no limitations <Shilo Kay - Last Filed: 11/29/21 14:53> <Daryn Abebe - Last Filed: 11/29/21 16:27> - General Chief Complaint: Psychiatric Symptoms Stated Complaint: EPS eval Time Seen by Provider: 11/29/21 11:28 - History of Present Illness Initial Comments: 45-year-old male presents emergency Department with chief complaint of needs psychiatric help. Patient states that he may she's telling him he is d elusional. He does admit that he's been using drugs including experimental mushrooms. Patient has very slight of ideas he has no complaints of be in suicidal or homicidal he does have a long psychiatric history history of drug abuse. (Shilo Kay) - Related Data Home Medications Medication Instructions Recorded Confirmed Haloperidol Decanoate [Haldol D] 200 mg IM Q14D 11/29/21 11/29/21 Omeprazole [PriLOSEC] 40 mg PO DAILY 11/29/21 11/29/21 lamoTRIgine 200 mg PO DAILY 11/29/21 11/29/21 Previous Rx's Medication Instructions Recorded Sertraline [Zoloft] 100 mg PO DAILY 30 Days tab 03/24/21 Allergies Allergy/AdvReac Type Severity Reaction Status Date / Time cat dander Allergy Itching Verified 11/29/21 13:37 banana AdvReac Nausea Verified 11/29/21 13:37 fluphenazine [From Prolixin] AdvReac seizures Verified 11/29/21 13:37 oxcarbazepine AdvReac seizures Verified 11/29/21 13:37 [From Trileptal] paliperidone [From Invega] AdvReac delusional Verified 11/29/21 13:37 risperidone [From Risperdal] AdvReac seizures Verified 11/29/21 13:37 Review of Systems ROS Other: All systems not noted in ROS Statement are negative. <Shilo Kay - Last Filed: 11/29/21 14:53> ROS Other: All systems not noted in ROS Statement are negative. <Daryn Abebe - Last Filed: 11/29/21 16:27> ROS Statement: Those systems with pertinent positive or pertinent negative responses have been documented in the HPI. Past Medical History Past Medical History: GERD/Reflux, Musculoskeletal Disorder, Seizure Disorder Additional Past Medical History / Comment(s): scoliosis, herpes, hiatal hernia, migraines, Hepatitis C History of Any Multi-Drug Resistant Organisms: None Reported Past Surgical History: No Surgical Hx Reported Additional Past Surgical History / Comment(s): EGD Past Anesthesia/Blood Transfusion Reactions: No Reported Reaction Past Psychological History: Anxiety, Bipolar, Depression, Schizoaffective Disorder Smoking Status: Current every day smoker Past Alcohol Use History: None Reported Past Drug Use History: Cocaine, Marijuana, Methamphetamine - Past Family History Mother History Unknown: Yes Additional Family Medical History / Comment(s): from suicide attempt Father History Unknown: Yes Additional Family Medical History / Comment(s): Reports that he is currently in the stages of dying- but wont clarify further. Inititally the patient stated his father was . <Shilo Kay M - Last Filed: 11/29/21 14:53> General Exam Limitations: no limitations General appearance: alert, in no apparent distress Head exam: Present: atraumatic, normocephalic, normal inspection Eye exam: Present: normal appearance, PERRL, EOMI. Absent: scleral icterus, conjunctival injection, periorbital swelling ENT exam: Present: normal exam, normal oropharynx, mucous membranes moist Neck exam: Present: normal inspection. Absent: tenderness, meningismus, lymphadenopathy Respiratory exam: Present: normal lung sounds bilaterally. Absent: respiratory distress, wheezes, rales, rhonchi, stridor Cardiovascular Exam: Present: regular rate, normal rhythm, normal heart sounds. Absent: systolic murmur, diastolic murmur, rubs, gallop, clicks Neurological exam: Present: alert, oriented X3 Psychiatric exam: Present: manic Skin exam: Present: warm, dry, intact, normal color. Absent: rash <Shilo Kay M - Last Filed: 11/29/21 14:53> Course Vital Signs 11/29/21 11:20 Temperature 97.8 F Pulse Rate 87 Respiratory 18 Rate Blood Pressure 147/95 O2 Sat by Pulse 99 Oximetry Medical Decision Making <MieshapabloDaryn - Last Filed: 11/29/21 16:27> - Medical Decision Making She was medically cleared and evaluated by EPS. He has signed a safety plan and is cleared for discharge. (Daryn Abebe) Disposition <Shilo Kay - Last Filed: 11/29/21 14:53> Is patient prescribed a controlled substance at d/c from ED?: No Time of Disposition: 16:27 <Daryn Abebe - Last Filed: 11/29/21 16:27> Clinical Impression: Chronic schizophrenia Disposition: HOME SELF-CARE Condition: Fair Instructions (If sedation given, give patient instructions): Schizophrenia (ED) Additional Instructions: Follow-up with community mental health, please return with worsening or changing symptoms. Referrals: [facility] [Primary Care Provider] - 1-2 days
== END 2021-11-29 16:37 | disposition home or self-care (01) ==
LOC: EC 11:06
DX: F20.89 Other schizophrenia (principal); K21.9 Gastro-esophageal reflux disease without esophagitis; F41.9 Anxiety disorder, unspecified; F31.9 Bipolar disorder, unspecified; F17.200 Nicotine dependence, unspecified, uncomplicated; F12.90 Cannabis use, unspecified, uncomplicated
CPT/HCPCS: 82075; 99283

== ENCOUNTER 2022-09-29 20:08 | Emergency (ER) | payer MEDICARE, OTHER ==
[2022-09-29 20:21] VITALS: BP 114/77; PULSE 93; RESP 16; TEMP 98.1
--- NOTE | 2022-09-29 21:31 | ED ---
Psych HPI - General Chief Complaint: Psychiatric Symptoms Stated Complaint: Mental Health Time Seen by Provider: 09/29/22 21:18 Source: patient, RN notes reviewed, old records reviewed Mode of arrival: ambulatory Limitations: no limitations - History of Present Illness Initial Comments: Nontoxic-appearing 46-year-old male presents to the emergency room ambulatory with complaints of visual and auditory hallucinations and worsening depression. Denies any suicidal or homicidal ideations. States he is taking his daily psych medication. He did smoke marijuana today but denies any other drug or alcohol use. He states that he has been staying at a friend's house in [place] because he is homeless. He denies any injuries. No pain or discomfort. MD Complaint: feels depressed Associated Psychiatric Symptoms: depression, auditory hallucinations, visual hallucinations History of same: Yes Quality: getting worse Context: significant life stressor (homeless, daily smoker, marijuana use) - Related Data Home Medications Medication Instructions Recorded Confirmed Haloperidol Decanoate [Haldol D] 200 mg IM Q14D 11/29/21 11/29/21 Omeprazole [PriLOSEC] 40 mg PO DAILY 11/29/21 11/29/21 lamoTRIgine 200 mg PO DAILY 11/29/21 11/29/21 Previous Rx's Medication Instructions Recorded Sertraline [Zoloft] 100 mg PO DAILY 30 Days tab 03/24/21 Allergies Allergy/AdvReac Type Severity Reaction Status Date / Time cat dander Allergy Itching Verified 06/23/22 21:31 banana AdvReac Nausea Verified 06/23/22 21:31 fluphenazine [From Prolixin] AdvReac seizures Verified 06/23/22 21:31 oxcarbazepine AdvReac seizures Verified 06/23/22 21:31 [From Trileptal] paliperidone [From Invega] AdvReac delusional Verified 06/23/22 21:31 risperidone [From Risperdal] AdvReac seizures Verified 06/23/22 21:31 Review of Systems ROS Statement: Those systems with pertinent positive or pertinent negative responses have been documented in the HPI. ROS Other: All systems not noted in ROS Statement are negative. Past Medical History Past Medical History: GERD/Reflux, Musculoskeletal Disorder, Seizure Disorder Additional Past Medical History / Comment(s): scoliosis, herpes, hiatal hernia, migraines, Hepatitis C History of Any Multi-Drug Resistant Organisms: None Reported Past Surgical History: No Surgical Hx Reported Additional Past Surgical History / Comment(s): EGD Past Anesthesia/Blood Transfusion Reactions: No Reported Reaction Past Psychological History: Anxiety, Bipolar, Depression, Schizoaffective Disorder Smoking Status: Current every day smoker Past Alcohol Use History: None Reported Past Drug Use History: Cocaine, Marijuana, Methamphetamine, Opiates - Past Family History Mother History Unknown: Yes Additional Family Medical History / Comment(s): from suicide attempt Father History Unknown: Yes Additional Family Medical History / Comment(s): Reports that he is currently in the stages of dying- but wont clarify further. Inititally the patient stated his father was . General Exam Limitations: no limitations General appearance: alert, in no apparent distress Head exam: Present: atraumatic Eye exam: Absent: scleral icterus, conjunctival injection, periorbital swelling Neck exam: Absent: tenderness, meningismus Respiratory exam: Absent: respiratory distress, accessory muscle use Cardiovascular Exam: Present: regular rate, normal rhythm GI/Abdominal exam: Present: soft Neurological exam: Present: alert, oriented X3 Psychiatric exam: Present: depressed. Absent: manic, homicidal ideation, suicidal ideation Skin exam: Present: warm, dry, normal color. Absent: cyanosis, diaphoretic, petechiae, pallor Course Vital Signs 09/29/22 20:16 Temperature 98.1 F Pulse Rate 93 Respiratory 16 Rate Blood Pressure 114/77 O2 Sat by Pulse 96 Oximetry Medical Decision Making - Medical Decision Making Patient has a history of GERD, seizure disorder, anxiety, bipolar, depression, schizoaffective disorder. He is a current smoker and drug screen positive for marijuana. Vital signs are stable Per Dr Suárez, EPS nurse did speak with patient and he is cleared to be discharged home with follow-up with [facility]. Continue his previously prescribed medications. Was pt. sent in by a medical professional or institution? @ -no Did you speak to anyone other than the patient for history? @ -no Did you review nursing and triage notes? @ -yes i agree Were old charts reviewed? @ -no Differential Diagnosis? @ -Anxiety, depression, psychosis, suicidal ideation, homicidal ideation chronic schizophrenia What testing was considered but not performed? (CT, X-rays, U/S, labs)? Why? @ none What meds were considered but not given? Why? @ -none Did you discuss the management of the patient with other professionals? @ -EPS nurse Did you reconcile home meds? @ -no Was smoking cessation discussed for >3mins.? @ -yesn Was critical care preformed (if so, how long)? @ o] Were there social determinants of health that impacted care today? How? (Homelessness, low income, unemployed, alcoholism, drug addiction, transportation, low edu. Level, literacy, decrease access to med. care, residential, rehab)? @ -Drug addiction Was there de-escalation of care discussed even if they declined? (Discuss DNR or withdrawal of care, Hospice)? @ -no What co-morbidities impacted this encounter? (DM, HTN, Smoking, COPD, CAD, Cancer, CVA, Hep., AIDS, mental health diagnosis, sleep apnea, morbid obesity)? @ -GERD, seizure disorder, anxiety, bipolar, depression, schizoaffective disorder Was patient admitted / discharged? @ -Discharged Undiagnosed new problem with uncertain prognosis? @ -[none] Drug Therapy requiring intensive monitoring for toxicity (Heparin, Nitro, Insulin, Cardizem)? @ -no Were any procedures done? @ -no Diagnosis/symptom? @ -Anxiety, depression, schizoaffective disorder Acute, or Chronic, or Acute on Chronic? @ -chronic Uncomplicated (without systemic symptoms) or Complicated (systemic symptoms)? @ -[default] Side effects of treatment? @ -[none] Exacerbation, Progression, or Severe Exacerbation] @ -[no] Poses a threat to life or bodily function? @ -[no] - Lab Data Lab Results 09/29/22 Range/Units 20:39 Urine Opiates Screen Not Detected (NotDetected) Ur Oxycodone Screen Not Detected (NotDetected) Urine Methadone Screen Not Detected (NotDetected) Ur Propoxyphene Screen Not Detected (NotDetected) Ur Barbiturates Screen Not Detected (NotDetected) U Tricyclic Antidepress Not Detected (NotDetected) Ur Phencyclidine Scrn Not Detected (NotDetected) Ur Amphetamines Screen Not Detected (NotDetected) U Methamphetamines Scrn Not Detected (NotDetected) U Benzodiazepines Scrn Not Detected (NotDetected) Urine Cocaine Screen Not Detected (NotDetected) U Marijuana (THC) Screen Detected H (NotDetected) Disposition Clinical Impression: Adjustment reaction of adult life, Acute anxiety, Depression Disposition: HOME SELF-CARE Condition: Good Instructions (If sedation given, give patient instructions): Depression (ED), Anxiety (ED) Additional Instructions: Follow-up with community mental health as directed. Continue previously prescribed medications. Return to the emergency room with any suicidal or homicidal ideations. Is patient prescribed a controlled substance at d/c from ED?: No Referrals: [facility] [Primary Care Provider] - 1-2 days Time of Disposition: 02:08
[2022-09-29 22:15] LABS: Amphetamine Screen,Urine Not Detected (NotDetected); Barbiturate Screen,Urine Not Detected (NotDetected); Benzodiazepines Screen,Urine Not Detected (NotDetected); Cocaine Screen,Urine Not Detected (NotDetected); Methadone Screen, Urine Not Detected (NotDetected); Opiate Screen,Urine Not Detected (NotDetected); Oxycodone Screen, Urine Not Detected (NotDetected); Phencyclidine Screen,Urine Not Detected (NotDetected); Tricyclic Antidepressant,Urine Not Detected (NotDetected); Urn Cannabinoid Scrn Detected (NotDetected)
== END 2022-09-30 02:17 | disposition home or self-care (01) ==
LOC: EC 20:08
DX: F43.23 Adjustment disorder with mixed anxiety and depressed mood (principal); K21.9 Gastro-esophageal reflux disease without esophagitis; F17.200 Nicotine dependence, unspecified, uncomplicated; F12.90 Cannabis use, unspecified, uncomplicated; F11.90 Opioid use, unspecified, uncomplicated; F14.10 Cocaine abuse, uncomplicated; Z79.899 Other long term (current) drug therapy; Z59.00 Homelessness unspecified; Z88.7 Allergy status to serum and vaccine; Z88.8 Allergy status to other drugs, medicaments and biological substances; Z88.5 Allergy status to narcotic agent
CPT/HCPCS: 80306; 82075; 99285

== ENCOUNTER 2023-01-22 04:44 | Emergency (ER) | payer MEDICARE, OTHER ==
[2023-01-22 05:16] VITALS: TEMP 97.4
[2023-01-22] MEDS ORDERED: ACETAMINOPHEN TAB 500 MG TAB PO STA (05:23)
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
[2023-01-22 06:26] LABS: Amphetamine Screen,Urine Detected (NotDetected); Barbiturate Screen,Urine Not Detected (NotDetected); Benzodiazepines Screen,Urine Not Detected (NotDetected); Cocaine Screen,Urine Detected (NotDetected); Methadone Screen, Urine Not Detected (NotDetected); Opiate Screen,Urine Not Detected (NotDetected); Oxycodone Screen, Urine Not Detected (NotDetected); Phencyclidine Screen,Urine Not Detected (NotDetected); Tricyclic Antidepressant,Urine Not Detected (NotDetected); Urn Cannabinoid Scrn Detected (NotDetected)
[2023-01-22 16:28] VITALS: BP 119/80; PULSE 100; RESP 18
== END 2023-01-22 16:24 | disposition home or self-care (01) ==
LOC: EC 04:44
DX: F19.10 Other psychoactive substance abuse, uncomplicated (principal); R44.0 Auditory hallucinations; K21.9 Gastro-esophageal reflux disease without esophagitis; F31.9 Bipolar disorder, unspecified; F41.9 Anxiety disorder, unspecified; F17.200 Nicotine dependence, unspecified, uncomplicated; F12.90 Cannabis use, unspecified, uncomplicated; F15.90 Other stimulant use, unspecified, uncomplicated; F14.90 Cocaine use, unspecified, uncomplicated; F11.90 Opioid use, unspecified, uncomplicated; Z79.899 Other long term (current) drug therapy; Z88.8 Allergy status to other drugs, medicaments and biological substances; Z91.018 Allergy to other foods; Z91.09 Other allergy status, other than to drugs and biological substances
CPT/HCPCS: 80306; 82075; 99285

== ENCOUNTER 2023-02-01 00:58 | Inpatient (IN) | payer MEDICARE, MEDICAID ==
--- NOTE | 2023-02-01 05:35 | ED ---
Psych HPI - General Chief Complaint: Psychiatric Symptoms Stated Complaint: Mental health Time Seen by Provider: 02/01/23 01:28 Source: patient Mode of arrival: ambulatory - History of Present Illness Initial Comments: This patient is a 47-year-old man who presents with complaint that he is having thoughts of poisoning himself. States that the thoughts are becoming more persistent so he like to speak with someone from behavioral health. Complaint: other -: week(s) Associated Psychiatric Symptoms: suicidal ideation, racing thoughts Quality: getting worse Improves With: none Worsens With: none Associated Symptoms: denies other symptoms - Related Data Home Medications Medication Instructions Recorded Confirmed Albuterol Sulfate [Ventolin HFA] 2 puff INHALATION RT-Q6H PRN 01/22/23 01/22/23 Previous Rx's Medication Instructions Recorded Nicotine Gum (Polacrilex) 2 mg BUCCAL Q4HR PRN 14 Days #84 02/07/23 [Nicorette] pieceofgum fluPHENAZine [Prolixin 5MG] 2.5 mg PO BID 30 Days #30 tablet 02/07/23 fluPHENAZine decanoate [Prolixin 50 mg IM Q14D 1 Days #1 ml 02/07/23 Decanoate] Allergies Allergy/AdvReac Type Severity Reaction Status Date / Time cat dander Allergy Itching Verified 02/01/23 06:56 banana AdvReac Nausea Verified 02/01/23 06:56 oxcarbazepine AdvReac seizures Verified 02/01/23 06:56 [From Trileptal] paliperidone [From Invega] AdvReac delusional Verified 02/01/23 06:56 risperidone [From Risperdal] AdvReac seizures Verified 02/01/23 06:56 Review of Systems ROS Statement: Those systems with pertinent positive or pertinent negative responses have been documented in the HPI. ROS Other: All systems not noted in ROS Statement are negative. Constitutional: Denies: fever, weakness Respiratory: Denies: cough, dyspnea Cardiovascular: Denies: chest pain, palpitations Gastrointestinal: Denies: abdominal pain, vomiting, diarrhea Genitourinary: Denies: dysuria, hematuria Musculoskeletal: Denies: back pain Skin: Denies: rash Neurological: Denies: headache, weakness Psychiatric: Reports: anxiety, suicidal thoughts. Denies: homicidal thoughts Past Medical History Past Medical History: GERD/Reflux, Musculoskeletal Disorder, Seizure Disorder Additional Past Medical History / Comment(s): scoliosis, herpes, hiatal hernia, migraines, Hepatitis C History of Any Multi-Drug Resistant Organisms: None Reported Past Surgical History: No Surgical Hx Reported Additional Past Surgical History / Comment(s): EGD Past Anesthesia/Blood Transfusion Reactions: No Reported Reaction Past Psychological History: Anxiety, Bipolar, Depression, Schizoaffective Disorder Smoking Status: Current every day smoker Past Alcohol Use History: None Reported Past Drug Use History: Cocaine, Marijuana, Methamphetamine, Opiates - Past Family History Mother History Unknown: Yes Additional Family Medical History / Comment(s): from suicide attempt Father History Unknown: Yes Additional Family Medical History / Comment(s): Reports that he is currently in the stages of dying- but wont clarify further. Inititally the patient stated his father was . General Exam Limitations: no limitations General appearance: alert, in no apparent distress, anxious Head exam: Present: atraumatic, normocephalic Eye exam: Present: normal appearance. Absent: scleral icterus, conjunctival injection Neck exam: Present: normal inspection Respiratory exam: Present: normal lung sounds bilaterally. Absent: respiratory distress, wheezes, rales, rhonchi, stridor Cardiovascular Exam: Present: regular rate, normal rhythm, normal heart sounds. Absent: systolic murmur, diastolic murmur, rubs, gallop GI/Abdominal exam: Present: soft. Absent: distended, tenderness, guarding, rebound, mass Extremities exam: Present: normal inspection, normal capillary refill. Absent: pedal edema, calf tenderness Back exam: Present: normal inspection Neurological exam: Present: alert, normal gait Psychiatric exam: Present: anxious, suicidal ideation. Absent: agitated, flat affect, homicidal ideation Skin exam: Present: warm, dry, intact, normal color. Absent: rash Course Vital Signs 02/01/23 01:04 Temperature 97.4 F L Pulse Rate 86 Respiratory 18 Rate Blood Pressure 124/86 O2 Sat by Pulse 98 Oximetry Medical Decision Making - Medical Decision Making Was pt. sent in by a medical professional or institution (, PA, AIRCRAFT SERVICER, urgent care, hospital, or residential...) When possible be specific @ -[No] Did you speak to anyone other than the patient for history (EMS, parent, family, police, friend...)? What history was obtained from this source @ -[No] Did you review nursing and triage notes (agree or disagree)? Why? @ -[I reviewed and agree with nursing and triage notes] Were old charts reviewed (outside hosp., previous admission, EMS record, old EKG, old radiological studies, urgent care reports/EKG's, residential records)? Report findings @ -[No old charts were reviewed] Differential Diagnosis (chest pain, altered mental status, abdominal pain women, abdominal pain men, vaginal bleeding, weakness, fever, dyspnea, syncope, headache, dizziness, GI bleed, back pain, seizure, CVA, palpatations, mental health, musculoskeletal)? @ -[Differential Mental Health Depression, anxiety, bipolar, psychosis, schizophrenia, borderline personality, situational depression, adjustment disorder, behavioral disorder, brain tumor, malingering, substance abuse, encephalopathy, medication reaction, dementia, hypothyroidism, degenerative neurologic disorder, lupus.... This is not meant to be all-inclusive list EKG interpreted by me (3pts min.). @ -[As above] X-rays interpreted by me (1pt min.). @ -[None done] CT interpreted by me (1pt min.). @ -[None done] U/S interpreted by me (1pt. min.). @ -[None done] What testing was considered but not performed or refused? (CT, X-rays, U/S, labs)? Why? @ -[None] What meds were considered but not given or refused? Why? @ -[None] Did you discuss the management of the patient with other professionals (professionals i.e. , PA, AIRCRAFT SERVICER, lab, RT, psych nurse, social problems specialist, car seat coverer, teacher, forest fire officer, case management rn)? Give summary @ -[The case is discussed with EPS personnel. They discussed the case with the psychiatrist on-call and the patient will be admitted for further mental health care Was smoking cessation discussed for >3mins.? @ -[No] Was critical care preformed (if so, how long)? @ -[No] Were there social determinants of health that impacted care today? How? (Homelessness, low income, unemployed, alcoholism, drug addiction, transportation, low edu. Level, literacy, decrease access to med. care, senior living, rehab)? @ -[No] Was there de-escalation of care discussed even if they declined (Discuss DNR or withdrawal of care, Hospice)? DNR status @ -[No] What co-morbidities impacted this encounter? (DM, HTN, Smoking, COPD, CAD, Cancer, CVA, ARF, Chemo, Hep., AIDS, mental health diagnosis, sleep apnea, morbid obesity)? @ -[None] Was patient admitted / discharged? Hospital course, mention meds given and route, prescriptions, significant lab abnormalities, going to OR and other pertinent info. @ -[Admitted, as above Undiagnosed new problem with uncertain prognosis? @ -[No] Drug Therapy requiring intensive monitoring for toxicity (Heparin, Nitro, Insulin, Cardizem)? @ -[No] Were any procedures done? @ -[No] Diagnosis/symptom? @ -[Mood disorder, acute on chronic Suicidal ideation, acute on chronic Acute, or Chronic, or Acute on Chronic? @ -[default] Uncomplicated (without systemic symptoms) or Complicated (systemic symptoms)? @ -[Uncomplicated Side effects of treatment? @ -[No] Exacerbation, Progression, or Severe Exacerbation? @ -[No] Poses a threat to life or bodily function? How? (Chest pain, [place], [place], pneumonia, PE, COPD, DKA, ARF, appy, cholecystitis, CVA, Diverticulitis, Homicidal, Suicidal, threat to staff... and all critical care pts) @ -[Yes, untreated mood disorder may lead to suicide attempt/ - Lab Data Result diagrams: 02/02/23 09:51 02/02/23 09:51 Lab Results 02/01/23 Range/Units 04:33 Coronavirus (PCR) Not Detected (Not Detectd) Disposition Clinical Impression: Suicidal ideation Disposition: ADMITTED IP TO THIS HOSP Condition: Stable Is patient prescribed a controlled substance at d/c from ED?: No
[2023-02-01] MEDS ORDERED: ACETAMINOPHEN TAB 325 MG TAB PO PRN (06:14)
[2023-02-01] MEDS ORDERED: MAGNESIUM HYDROXIDE 2,400 MG/10 ML CUP PO PRN (06:14)
[2023-02-01] MEDS ORDERED: MAG HYDROX/AL HYDROX/SIMETH 30 ML CUP PO PRN (06:14)
[2023-02-01] MEDS ORDERED: ALBUTEROL INHALER 60 PUFF/8 GM INHALER (MHU) INHALATION PRN (06:17)
[2023-02-01] MEDS ORDERED: LORazepam 2 MG/ML INJ IM PRN (06:19)
[2023-02-01] MEDS ORDERED: HALOPERIDOL LACTATE 5 MG/ML 1 ML VIAL IM PRN (06:21)
[2023-02-01] MEDS: NICOTINE 14MG/24HR PATCH TRANSDERM SCH (09:29)
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
[2023-02-01] MEDS: OLANZapine 5 MG TAB PO SCH (21:53)
--- NOTE | 2023-02-02 05:14 | P.PN ---
Progress Note - Text Progress Note Date: 02/02/23 patient refused medical evaluation at this time
[2023-02-02] MEDS: NICOTINE 14MG/24HR PATCH TRANSDERM SCH (09:44)
[2023-02-02 10:09] LABS: Basophils # (A) 0.1 k/uL (0-0.2); Basophils % (A) 1 %; Eosinophils # (A) 0.3 k/uL (0-0.7); Eosinophils % (A) 3 %; HCT 51.2 % (39.0-53.0); HGB 16.4 gm/dL (13.0-17.5); Lymphocytes # (A) 2.1 k/uL (1.0-4.8); Lymphocytes % (A) 20 %; MCH 29.3 pg (25.0-35.0); MCV 91.6 fL (80.0-100.0); Monocytes # (A) 0.6 k/uL (0-1.0); Monocytes % (A) 5 %; Neutrophils % (A) 68 %; Platelet Count 241 k/uL (150-450); RBC 5.59 m/uL (4.30-5.90); RDW 13.8 % (11.5-15.5); WBC 10.2 k/uL (3.8-10.6)
[2023-02-02 10:20] LABS: ALT 144 U/L (4-49); AST 81 U/L (17-59); African American GFR (CKD) >90 (>60 ml/min/1.73 sqM); Albumin 4.5 g/dL (3.5-5.0); Alkaline Phosphatase 77 U/L (38-126); Anion Gap 13 mmol/L; Bilirubin, Delta 0.3 mg/dL (0.0-0.2); Bilirubin,Unconjugated 0.4 mg/dL (0.0-1.1); Blood Urea Nitrogen 24 mg/dL (9-20); Calcium 9.9 mg/dL (8.4-10.2); Carbon Dioxide 27 mmol/L (22-30); Chloride 99 mmol/L (98-107); Glucose 156 mg/dL (74-99); Non-African American GFR(CKD) 85 (>60 ml/min/1.73 sqM); Potassium 4.8 mmol/L (3.5-5.1); Sodium 139 mmol/L (137-145); Total Bilirubin 0.7 mg/dL (0.2-1.3); Total Protein 7.9 g/dL (6.3-8.2)
[2023-02-02] MEDS: LORazepam 1 MG TAB PO PRN ×2 (11:51→21:00)
--- NOTE | 2023-02-02 15:38 | P.PN ---
Subjective Progress Note Date: 02/02/23 Principal diagnosis: Diagnosis: schizoaffective disorder in relapse precipitated by comorbid severre substance use (hallucinogen psychedic drugs : cannanbis fantany-adulterant, psilocybin COPD . Subjective/subjective data: The patient was seen for a follow-up Patient remains on delusional euphoric patient has difficulty to some surgery on me He says that people are trying to shoot everyone that he is trying to save everyone He states that his family has been this time and that he should actually own every house here MENTAL STATUS EXAM: General Appearance: Patient appears to be stated age is alert, Difficult to interact. Patient appears to have disheveled hygiene and grooming. Behavior: Patient displayed psychomotor agitation. Patient is hyper and restless Mood/Affect: Euphoric and expansive Patient exhibits flight of ideas and delusional thinking Suicidality/Homicidality: Patient is denying any suicidal or homicidal ideation. Perceptions: Patient endorses visual hallucinations. She denies any auditory hallucinations. Though content/process: Patient is grossly paranoid and endorsing many bizarre delusions. he is nonlinear, nonlogical, and displays a flight of ideas. This associations and magical thinking. Memory and concentration: Grossly poor at this time Judgment and insight: Very poor Management: 1 He fulfiled the criteria of inpatient admision due to his unpredictable and erratic course . 4. Continue on fluphenazine decanodate and oral olanzapine; further Rxs . Based on his evolving symptoms as patient at this time appears to be coming down from the poly-substance use Monitor for agitation and aggression or any impulsive acting out [facility] Objective - Vital Signs Vital signs: Vital Signs Temp 97.9 F 02/01/23 06:58 Pulse 108 H 02/02/23 08:00 Resp 22 02/02/23 08:00 BP 130/83 02/02/23 08:00 Pulse Ox 97 02/01/23 06:58 FiO2 - Labs CBC & Chem 7: 02/02/23 09:51 02/02/23 09:51 Labs: Abnormal Lab Results - Last 24 Hours (Table) 02/02/23 Range/Units 09:51 BUN 24 H (9-20) mg/dL Glucose 156 H (74-99) mg/dL Delta Bilirubin 0.3 H (0.0-0.2) mg/dL AST 81 H (17-59) U/L ALT 144 H (4-49) U/L
[2023-02-02] MEDS: PANTOPRAZOLE 40 MG TABLET PO SCH (16:04)
[2023-02-02] MEDS: NICOTINE GUM (POLACRILEX) 2 MG GUM BUCCAL PRN ×2 (16:06→20:59)
[2023-02-02] MEDS: OLANZapine 5 MG TAB PO SCH (21:00)
--- NOTE | 2023-02-03 00:13 | P.PN ---
Progress Note - Text Progress Note Date: 02/03/23 Attempted to see the patient in the mental health unit at . At the beginning of the interview, it became apparent that the patient was actively psychotic and was posturing towards the provider and was being verbally hostile. The interview was cut short and no physical exam was performed. The patient denied any active complaints at the beginning of the interview.
[2023-02-03] MEDS: NICOTINE GUM (POLACRILEX) 2 MG GUM BUCCAL PRN ×3 (08:37→23:23)
[2023-02-03] MEDS: PANTOPRAZOLE 40 MG TABLET PO SCH (08:37)
[2023-02-03 09:43] LABS: Chol/HDL Ratio 4.31 Ratio; LDL Cholesterol,Calculated 114.7 mg/dL
--- NOTE | 2023-02-03 12:03 | P.PN ---
Subjective Progress Note Date: 02/03/23 Principal diagnosis: Diagnosis: schizoaffective disorder in relapse precipitated by comorbid severre substance use (hallucinogen psychedic drugs : cannanbis fantany-adulterant, psilocybin COPD . Subjective/subjective data: The patient was seen for a follow-up The patient was laying comfortably in his bed when seen Patient states that he needs to stay away from the drug dealers and appears to be showing some insight into his problem When asked about what drugs she was using patient states that his private business and does not want to discuss He says that he would rather be left alone MENTAL STATUS EXAM: General Appearance: Patient appears to be stated age is alert, Difficult to interact. Patient appears to have disheveled hygiene and grooming. Behavior: Patient displayed psychomotor agitation. Patient is hyper and restless Mood/Affect: Euphoric and expansive Patient exhibits flight of ideas and delusional thinking Suicidality/Homicidality: Patient is denying any suicidal or homicidal ideation. Perceptions: Patient endorses visual hallucinations. She denies any auditory hallucinations. Though content/process: Patient is grossly paranoid and endorsing many bizarre delusions. he is nonlinear, nonlogical, and displays a flight of ideas. This associations and magical thinking. Memory and concentration: Grossly poor at this time Judgment and insight: Very poor Management: 1 He fulfiled the criteria of inpatient admision due to his unpredictable and erratic course Continue on fluphenazine decanodate and oral olanzapine; further Rxs . Based on his evolving symptoms as patient at this time appears to be coming down from the poly-substance use Monitor for agitation and aggression or any impulsive acting out [facility] 02/03/2023 Objective - Vital Signs Vital signs: Vital Signs Temp 97.9 F 02/01/23 06:58 Pulse 108 H 02/02/23 08:00 Resp 22 02/02/23 08:00 BP 130/83 02/02/23 08:00 Pulse Ox 97 02/01/23 06:58 FiO2 Intake & Output 02/02/23 02/03/23 02/03/23 18:59 06:59 18:59 Weight 68.9 kg - Labs CBC & Chem 7: 02/02/23 09:51 02/02/23 09:51
[2023-02-03] MEDS: OLANZapine 5 MG TAB PO SCH (21:34)
[2023-02-04] MEDS: PANTOPRAZOLE 40 MG TABLET PO SCH (10:10)
--- NOTE | 2023-02-04 12:57 | P.PN ---
Progress Note - Text Progress Note Date: 02/04/23 Interval History: Patient was seen resting in bed and was directable and agreeable to speak with selling underwriter in the office. Currently, the patient reports no issues regarding auditory or visual hallucinations. He acknowledges he is due for prolixin decanoate tomorrow. He reports no suicidal or homicidal ideation, intention, and/or plan. He reports that he has some difficulty with sleep but denies any issues regarding his appetite. He denies any overt delusional thought content. He does report concerns for his safety and paranoia. It is suspected that he owes a drug dealer money in the outside setting. Mental Status Exam: General Appearance: Patient appears to be stated age is alert, directable, and cooperative. Unkempt hair and jay. Behavior: [Patient is calmly lying down in bed without any agitated behavior. Speech: Patient's speech is fluent and nonpressured. Monotone. Mood/Affect: Mood is "okay," affect is blunted. Suicidality/Homicidality: Patient reports no suicidal or homicidal ideation, intention, and/or plan. Perceptions: Patient denies any visual hallucinations and denies any auditory hallucinations Though content/process: There is no evidence of any delusional thought content and thought process is linear and goal-directed. Memory and concentration: AOX3, grossly intact for the purposes of this session Judgment and insight: Improving mildly Vital Signs Temp 97.9 F 02/01/23 06:58 Pulse 108 H 02/02/23 08:00 Resp 22 02/02/23 08:00 BP 130/83 02/02/23 08:00 Pulse Ox 97 02/01/23 06:58 FiO2 Intake & Output 02/03/23 02/04/23 02/04/23 18:59 06:59 18:59 Weight 68.9 kg Assessment Schizoaffective disorder, bipolar type Other psychoactive substance use Cannabis use disorder Plan: -Patient continues to meet criteria for inpatient psychiatric admission for sy mptom stabilization and safety. Patient has signed adult voluntary form and medication consent and was placed in patient's chart. -Medications: Decrease Prolixin to 5 mg at bedtime. Patient is due to receive Prolixin decanoate 50 mg IM tomorrow. Discontinue Zyprexa due to to dual antipsychotic treatment. -When necessary Ativan and Haldol for agitation/aggression. -NRT - nicotine gum -SW on board for discharge planning. Encouraged the patient to participate in milieu.
[2023-02-04] MEDS: NICOTINE GUM (POLACRILEX) 2 MG GUM BUCCAL PRN ×2 (17:03→20:48)
[2023-02-04] MEDS: LORazepam 1 MG TAB PO PRN (20:46)
[2023-02-05] MEDS ORDERED: fluPHENAZine DECANOATE 25 MG/ML 5ML MDV IM SCH (09:00)
[2023-02-05] MEDS: PANTOPRAZOLE 40 MG TABLET PO SCH (09:12)
[2023-02-05] MEDS: NICOTINE GUM (POLACRILEX) 2 MG GUM BUCCAL PRN ×2 (11:32→16:36)
--- NOTE | 2023-02-05 13:43 | P.PN ---
Progress Note - Text Progress Note Date: 02/05/23 Interval History: Patient was seen resting in bed and was directable and agreeable to speak with short story writer in his room. Currently, the patient is not reporting any suicidal or homicidal ideation, intention, and/or plan. He reports no auditory or visual hallucinations. He denies any paranoia or other delusions. The patient has been adherent with his medication is not endorsing any significant side effects. He received his long-acting injection medication today. He reports no issues regarding his sleep or his appetite. Mental Status Exam: Grossly unchanged from yesterday. General Appearance: Patient appears to be stated age is alert, directable, and cooperative. Unkempt hair and jay. Behavior: Patient is calmly lying down in bed without any agitated behavior. Speech: Patient's speech is fluent and nonpressured. Monotone. Mood/Affect: Mood is "okay," affect is blunted. Suicidality/Homicidality: Patient reports no suicidal or homicidal ideation, intention, and/or plan. Perceptions: Patient denies any visual hallucinations and denies any auditory hallucinations Though content/process: There is no evidence of any delusional thought content and thought process is linear and goal-directed. Memory and concentration: AOX3, grossly intact for the purposes of this session Judgment and insight: Improving mildly Vital Signs Temp 97.9 F 02/01/23 06:58 Pulse 108 H 02/02/23 08:00 Resp 22 02/02/23 08:00 BP 130/83 02/02/23 08:00 Pulse Ox 97 02/01/23 06:58 FiO2 Assessment Schizoaffective disorder, bipolar type Other psychoactive substance use Cannabis use disorder Plan: -Patient continues to meet criteria for inpatient psychiatric admission for symptom stabilization and safety. Patient has signed adult voluntary form and medication consent and was placed in patient's chart. -Medications: Prolixin Decanoate 50 mg IM was administered today. Patient receives his medication to 14 days. Discontinue oral Prolixin. -When necessary Ativan and Haldol for agitation/aggression. -NRT - nicotine gum -SW on board for discharge planning. Encouraged the patient to participate in milieu.
[2023-02-05] MEDS: LORazepam 1 MG TAB PO PRN (18:35)
[2023-02-06] MEDS: PANTOPRAZOLE 40 MG TABLET PO SCH (08:45)
[2023-02-06] MEDS: NICOTINE GUM (POLACRILEX) 2 MG GUM BUCCAL PRN ×4 (08:45→22:27)
[2023-02-06 08:58] VITALS: RESP 18; TEMP 98.1
--- NOTE | 2023-02-06 11:58 | P.PN ---
Progress Note - Text Progress Note Date: 02/06/23 Interval History: Patient was seen resting in bed and was directable and agreeable to speak with copywriter in his room. Currently, the patient is not reporting any suicidal or homicidal ideation, intention, and/or plan. He reports no auditory or visual hallucinations. He denies any paranoia or other delusions. The patient has been adherent with his medication is not endorsing any significant side effects. He received his long-acting injection medication yesterday and is tolerating the medication well. He reports no medical issues or concerns. Mental Status Exam: Grossly unchanged from yesterday. General Appearance: Patient appears to be stated age is alert, directable, and cooperative. Unkempt hair and jay. Behavior: Patient is calmly lying down in bed without any agitated behavior. Speech: Patient's speech is fluent and nonpressured. Monotone. Mood/Affect: Mood is "good," affect is constricted. More range today. Suicidality/Homicidality: Patient reports no suicidal or homicidal ideation, intention, and/or plan. Perceptions: Patient denies any visual hallucinations and denies any auditory hallucinations Though content/process: There is no evidence of any delusional thought content and thought process is linear and goal-directed. Memory and concentration: AOX3, grossly intact for the purposes of this session Judgment and insight: Improving mildly Vital Signs Temp 98.1 F 02/06/23 08:57 Pulse 91 02/06/23 08:57 Resp 18 02/06/23 08:57 BP 122/71 02/06/23 08:57 Pulse Ox 97 02/01/23 06:58 FiO2 Assessment Schizoaffective disorder, bipolar type Other psychoactive substance use Cannabis use disorder Plan: -Patient continues to meet criteria for inpatient psychiatric admission for symptom stabilization and safety. Patient has signed adult voluntary form and medication consent and was placed in patient's chart. -Medications: Prolixin Decanoate 50 mg IM was administered on 02/05/2023. Patient receives his medication to 14 days. -When necessary Ativan and Haldol for agitation/aggression. -NRT - nicotine gum -SW on board for discharge planning. Encouraged the patient to participate in milieu.
[2023-02-06] MEDS: LORazepam 1 MG TAB PO PRN (17:09)
[2023-02-06 23:57] VITALS: BP 111/73; PULSE 86
[2023-02-07] MEDS: NICOTINE GUM (POLACRILEX) 2 MG GUM BUCCAL PRN (09:08)
[2023-02-07] MEDS: PANTOPRAZOLE 40 MG TABLET PO SCH (09:08)
[2023-02-07] MEDS ORDERED: LORazepam 1 MG TAB PO STA (12:34)
--- NOTE | 2023-02-07 12:46 | P.DS ---
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 Campuzano who wrote: "Referral data; He was referred to the [facility] emergency for triage to the [facility] for admission with complaint of his plan to poison himself he has had previous admission to [facility] with his last admission in 2020 with the admisison and discharge diagnosis of schizophrenia and comorbid substance use disorder: psychedelics, alcohol. Chief complaint: I want to go home HPI, He was seen in person in the office 9-10:30 am . His case was discussed at length and his last [facility] entry was reviewed. He continued to be abusing hallucinogens: cannabis and psychedicsl magic Mushroom (Psilocybin) . He was reported to be smoking cannnabis and Methamphetamine (MDA) as well, The [facility] report that he may be involved in an complex illicit drug processing operation in the [facility]. ruminating over caucus . He talked of his plan to "poison himself with unidentified plan. His ideas of reference are definitely related to his drug related experience; Vap cigarettes and reprocessing fantanyl cannot be excluded which may escape routine Toxicology screen tests. He was noted for his bizzare thought pattern with inappropriate alughter when he was seen in [facility] 2022 at [facility]. it is evident that he did not want to be engaged in any dual diagnosis program . His condition worsened from December 2022 to december 2022. He was assessed medically and was admitted to [facility] [place] [place] in -February 01. His medical conditon was stable with no marked changed in his vital signs no seizures. Earlier he slept most of the time and tolerated the assessment for 20-30 min. in a alert lucid manner. He eas totally ignored his drug use and his complaint of wanting to poison himself . His elaborate scheme was not in his agenda. He talked abotu his divorce after many years of marriage . He referred to his solid work history which cannot be corroborated. 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 During the session, I reviewed with him the medicaiton profile.the comprehensive [facility] indicated he was recnelty changed to flupenazine decanote a50 mg imq2 week after he failed to respond to other [place]: Invega, Haldol Decanote. He was also tried on Zoloft abilify Maintenana. it is evident that his constinued use of substances countacted his psychotropci drug trials to stablize his psychosis and mood swings . past Psychiatric history and substance use history: well documented in his previous admisson. When he was last admitted to MHU, he presented with active psychotic symptom of hallucinatons and delusions mixed with bizzare behavioral disturbances. 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 He may not have been tried on clozaril before ; Past medical history: COPD smoking related. Chronic viral hapetitis C. from [facility] history. GERD and query sexual disroder. " Hospital course: Upon admission to the unit patient was initially presenting as cooperative and polite. Patient was however directable and agreeable to commence treatment. Patient got along well with other patients on the unit and followed unit protocol. Patient was compliant with the medications and denied any side effects throughout hospital course. Patient was started on Prolixin. Patient spoke of his stressors he would occasionally attend milieu activities but often kept to himself. He would occasionally appeared to respond to internal stimuli however was mostly cooperative and polite during this hospital stay. We'll request the hospitalization, the patient's Prolixin was gradually titrated and the patient displayed significant improvement regards to his target symptoms of psychosis. He was eventually re-transitioned back to Prolixin Decanoate. He received Prolixin Decanoate 50 mg IM on 02/05/2023. The patient tolerated the medication well. On the day of discharge however, the patient appeared to be crying and is responding to internal stimuli. He was able to be redirected and was given oral Prolixin as well as Ativan. The patient continued to express a desire for discharge. He is not reporting any suicidal or homicidal ideation, intention, and/or plan. He is not reporting any auditory or visual hallucinations. He denies any paranoia or other delusions however does express excessive guilt in regards to a friend who " from carfentanyl." He does express that he feels ready to go and that the ACT team will be picking him up today. The patient denied any access to firearms or other weapons. The patient was counseled at length and reports medication adherence appropriate outpatient follow-up. The patient does have a significant history of substance abuse and his counselor at great length on abstaining from all substances including alcohol, tobacco, marijuana, and all illicit drugs, especially psychoactive substances. On the day of discharge, he is not reporting any medical issues or concerns. He denies any chest pain, shortness of breath, palpitations, issues going to the restroom, or akathisia or tardive dyskinesia. As the patient no longer met criteria for continued inpatient psychiatric hospitalization, he was subsequently discharged. Mental status exam: General Appearance: Patient appears to be stated age is alert, pleasant, and cooperative. Patient is in no acute distress and has fair hygiene and grooming. Behavior: Appears to be crying however redirectable. Speech: Patient's speech is fluent and nonpressured. Mood/Affect: Patient reports their mood is "it's okay, I feel safe to go", affect is tearful but euthymic and polite. Suicidality/Homicidality: Patient is denying any suicidal or homicidal ideation. Perceptions: Patient denies any auditory or visual hallucinations. Though content/process: Patient does report some guilt however he is future and goal oriented. Memory and concentration: AOX3, grossly intact for the purposes of this session. Can spell "WORLD" backwards correctly. Judgment and insight: Improved with guarded prognosis Impression: Schizoaffective disorder, bipolar type Other psychoactive substance use Cannabis use disorder Plan: -Continue with discharge today as patient has improved and stabilized psychiat rically and is not currently an imminent threat to himself and/or others. Patient will remain at chronically elevated risk due to the severity of his mental illness as well as his substance abuse. -Continue medications: Nicorette gum for nicotine cessation Prolixin 2.5 mg by mouth twice a day Prolixin decanoate 50 mg IM was less administered on 02/05/2023. Next dose due on 02/19/2023. -Patient was counseled on the need for medication compliance and appropriate follow-up at mental health and also primary care for medical issues. Patient verbalized understanding and agreed. -Social work to arrange for and conduct family meeting to ensure safety upon discharge and answer any questions/concerns. Social work also to arrange for patients follow up appointments with [facility] for psychiatric care along with follow up with primary care provider. -Patient counseled on abstaining from recreational drugs and marijuana and alcohol. Was informed/educated on the adverse effects on their physical and m ental health. Patient verbally agreed and understood. -Patient was instructed to return to the hospital or seek immediate medical care if their psychiatric or medical symptoms do worsen or reoccur. -Psychoeducation and supportive therapy provided to patient. Risks and benefits of pharmacological treatment versus the risks and benefits of nontreatment weighed and discussed. Informed consent discussion held. Common side effects of psychotropics discussed such as, but not limited to headache, GI disturbance, sexual dysfunction, movement disorders, sedation, and orthostatic hypotension. Life threatening and blackbox warnings of prescribed medications also discussed. Potential risks of operating a vehicle or heavy machinery discussed with patient at length. Advised on importance of compliance and a reliable and responsible manner. Patient advised to review FDA consumer labeling of all medications prior to taking. Patient verbalized understanding of potential risks, and agrees with current treatment plan. Patient advised to medically contact physician/emergency personnel if any acute changes in condition occur. Vital Signs Temp 98.1 F 02/06/23 23:56 Pulse 86 02/06/23 23:56 Resp 18 02/06/23 23:56 BP 111/73 02/06/23 23:56 Pulse Ox 97 02/06/23 23:56 FiO2 Laboratory Results WBC 10.2 k/uL (3.8-10.6) 02/02/23 09:51 RBC 5.59 m/uL (4.30-5.90) 02/02/23 09:51 Hgb 16.4 gm/dL (13.0-17.5) 02/02/23 09:51 Hct 51.2 % (39.0-53.0) 02/02/23 09:51 MCV 91.6 fL (80.0-100.0) 02/02/23 09:51 MCH 29.3 pg (25.0-35.0) 02/02/23 09:51 MCHC 32.0 g/dL (31.0-37.0) 02/02/23 09:51 RDW 13.8 % (11.5-15.5) 02/02/23 09:51 Plt Count 241 k/uL (150-450) 02/02/23 09:51 MPV 7.0 02/02/23 09:51 Neutrophils % 68 % 02/02/23 09:51 Lymphocytes % 20 % 02/02/23 09:51 Monocytes % 5 % 02/02/23 09:51 Eosinophils % 3 % 02/02/23 09:51 Basophils % 1 % 02/02/23 09:51 Neutrophils # 7.0 k/uL (1.3-7.7) 02/02/23 09:51 Lymphocytes # 2.1 k/uL (1.0-4.8) 02/02/23 09:51 Monocytes # 0.6 k/uL (0-1.0) 02/02/23 09:51 Eosinophils # 0.3 k/uL (0-0.7) 02/02/23 09:51 Basophils # 0.1 k/uL (0-0.2) 02/02/23 09:51 Sodium 139 mmol/L (137-145) 02/02/23 09:51 Potassium 4.8 mmol/L (3.5-5.1) 02/02/23 09:51 Chloride 99 mmol/L (98-107) 02/02/23 09:51 Carbon Dioxide 27 mmol/L (22-30) 02/02/23 09:51 Anion Gap 13 mmol/L 02/02/23 09:51 BUN 24 mg/dL (9-20) H 02/02/23 09:51 Creatinine 1.04 mg/dL (0.66-1.25) 02/02/23 09:51 Est GFR (CKD-EPI)AfAm >90 (>60 ml/min/1.73 sqM) 02/02/23 09:51 Est GFR (CKD-EPI)NonAf 85 (>60 ml/min/1.73 sqM) 02/02/23 09:51 Glucose 156 mg/dL (74-99) H 02/02/23 09:[address] Glu mg/dL 123 mg/dL 02/02/23 09:51 Hemoglobin A1c 5.9 % (<=6.0) 02/02/23 09:51 Calcium 9.9 mg/dL (8.4-10.2) 02/02/23 09:51 Total Bilirubin 0.7 mg/dL (0.2-1.3) 02/02/23 09:51 Conjugated Bilirubin 0.0 mg/dL (0.0-0.3) 02/02/23 09:51 Unconjugated Bilirubin 0.4 mg/dL (0.0-1.1) 02/02/23 09:51 Delta Bilirubin 0.3 mg/dL (0.0-0.2) H 02/02/23 09:51 AST 81 U/L (17-59) H 02/02/23 09:51 ALT 144 U/L (4-49) H 02/02/23 09:51 Alkaline Phosphatase 77 U/L (38-126) 02/02/23 09:51 Total Protein 7.9 g/dL (6.3-8.2) 02/02/23 09:51 Albumin 4.5 g/dL (3.5-5.0) 02/02/23 09:51 Triglycerides 137.00 mg/dL 02/02/23 09:51 Cholesterol 185.00 mg/dL 02/02/23 09:51 LDL Cholesterol, Calc 114.7 mg/dL 02/02/23 09:51 VLDL Cholesterol, Calc 27.40 mg/dL 02/02/23 09:51 HDL Cholesterol 42.90 mg/dL 02/02/23 09:51 Cholesterol/HDL Ratio 4.31 Ratio 02/02/23 09:51 TSH 0.510 mIU/L (0.465-4.680) 02/02/23 09:51 Coronavirus (PCR) Not Detected (Not Detectd) 02/01/23 04:33 Allergies Allergy/AdvReac Type Severity Reaction Status Date / Time cat dander Allergy Itching Verified 02/01/23 06:56 banana AdvReac Nausea Verified 02/01/23 06:56 oxcarbazepine AdvReac seizures Verified 02/01/23 06:56 [From Trileptal] paliperidone [From Invega] AdvReac delusional Verified 02/01/23 06:56 risperidone [From Risperdal] AdvReac seizures Verified 02/01/23 06:56 Patient Condition at Discharge: Stable Plan - Discharge Summary Discharge Rx Participant: Yes New Discharge Prescriptions: New Nicotine Gum (Polacrilex) [Nicorette] 2 mg BUCCAL Q4HR PRN 14 Days #84 pieceofgum PRN Reason: Nicotine Cravings fluPHENAZine [Prolixin 5MG] 2.5 mg PO BID 30 Days #30 tablet fluPHENAZine decanoate [Prolixin Decanoate] 50 mg IM Q14D 1 Days #1 ml Continue Albuterol Sulfate [Ventolin HFA] 2 puff INHALATION RT-Q6H PRN PRN Reason: Shortness Of Breath Discontinued Omeprazole [PriLOSEC] 40 mg PO DAILY fluPHENAZine decanoate [Prolixin Decanoate] 50 mg IM Q14D OLANZapine 5 mg PO HS Discharge Medication List Albuterol Sulfate [Ventolin HFA] 2 puff INHALATION RT-Q6H PRN 01/22/23 [History] Nicotine Gum (Polacrilex) [Nicorette] 2 mg BUCCAL Q4HR PRN 14 Days #84 pieceofgum 02/07/23 [Rx] fluPHENAZine [Prolixin 5MG] 2.5 mg PO BID 30 Days #30 tablet 02/07/23 [Rx] fluPHENAZine decanoate [Prolixin Decanoate] 50 mg IM Q14D 1 Days #1 ml 02/07/23 [Rx] Follow up Appointment(s)/Referral(s): [facility] [Outside] - 02/15/23 11:00 am (02/15/2023 11:00AM - 11:30AM ANTONIA HUMPHREYS ) [facility] [Primary Care Provider] - 1-2 days Patient Instructions/Handouts: How to Stop Smoking (DC), Schizoaffective Disorder (DC), Cannabis Abuse (DC) Activity/Diet/Wound Care/Special Instructions: Avoid the use of street drugs and alcohol. Take all medications as prescribed. When you are in need of refills on your medications, please contact your medical provider and/or outpatient psychiatrist to have this done. Please go to scheduled outpatient appointments for aftercare treatment. If symptoms return or become worse, call the crisis line at and/or go to the nearest emergency room for evaluation. Discharge Disposition: HOME SELF-CARE
== END 2023-02-07 12:55 | disposition home or self-care (01) | DRG 885 ==
LOC: EC 00:58 → 3MHU 06:10
PROVIDERS: ADMIT Psychiatry & Neurology Psychiatry; ATTEND Psychiatry & Neurology Psychiatry
DX: F25.0 Schizoaffective disorder, bipolar type (principal); F12.151 Cannabis abuse with psychotic disorder with hallucinations; R45.851 Suicidal ideations; J44.9 Chronic obstructive pulmonary disease, unspecified; B19.20 Unspecified viral hepatitis C without hepatic coma; Z20.822 Contact with and (suspected) exposure to COVID-19; Z28.310 Unvaccinated for COVID-19; G43.909 Migraine, unspecified, not intractable, without status migrainosus; K44.9 Diaphragmatic hernia without obstruction or gangrene; M41.9 Scoliosis, unspecified; F17.210 Nicotine dependence, cigarettes, uncomplicated; Z71.6 Tobacco abuse counseling; K21.9 Gastro-esophageal reflux disease without esophagitis; Z79.899 Other long term (current) drug therapy; Z71.51 Drug abuse counseling and surveillance of drug abuser; Z71.41 Alcohol abuse counseling and surveillance of alcoholic; Z88.8 Allergy status to other drugs, medicaments and biological substances; Z91.018 Allergy to other foods; Z91.048 Other nonmedicinal substance allergy status
CPT/HCPCS: 80053; 80061; 82075; 82248; 83036; 84443; 85025; 87635; 99285

== ENCOUNTER 2023-04-09 11:09 | Inpatient (IN) | payer MEDICARE, MEDICAID ==
--- NOTE | 2023-04-09 12:07 | ED ---
General Adult HPI - General Chief complaint: Psychiatric Symptoms Stated complaint: mental health Source: patient, police, RN notes reviewed, old records reviewed Mode of arrival: ambulatory - History of Present Illness Initial comments: This is a 47-year-old male who presents emergency Department with a petition. The petition states that he threatened the scalp somebody at [facility]. Patient told us she was here because everybody stole all of his money in all of his gardening tools and is unable to guard. Patient states he does all sorts of drugs be cocaine second doubts he really likes psychedelic she says. Patient denies any alcohol use. Patient denies any recent fever chills or cough. Patient has no physical complaints. - Related Data Home Medications Medication Instructions Recorded Confirmed Albuterol Sulfate [Ventolin HFA] 2 puff INHALATION RT-Q6H PRN 01/22/23 04/09/23 OLANZapine 10 mg PO HS 04/09/23 04/09/23 Omeprazole [PriLOSEC] 40 mg PO DAILY 04/09/23 04/09/23 Previous Rx's Medication Instructions Recorded fluPHENAZine decanoate [Prolixin 50 mg IM Q14D 1 Days #1 ml 02/07/23 Decanoate] Allergies Allergy/AdvReac Type Severity Reaction Status Date / Time cat dander Allergy Itching Verified 04/09/23 11:54 banana AdvReac Nausea Verified 04/09/23 11:54 oxcarbazepine AdvReac seizures Verified 04/09/23 11:54 [From Trileptal] paliperidone [From Invega] AdvReac delusional Verified 04/09/23 11:54 risperidone [From Risperdal] AdvReac seizures Verified 04/09/23 11:54 Review of Systems ROS Statement: Those systems with pertinent positive or pertinent negative responses have been documented in the HPI. ROS Other: All systems not noted in ROS Statement are negative. Past Medical History Past Medical History: GERD/Reflux, Musculoskeletal Disorder, Seizure Disorder Additional Past Medical History / Comment(s): scoliosis, herpes, hiatal hernia, migraines, Hepatitis C History of Any Multi-Drug Resistant Organisms: None Reported Past Surgical History: No Surgical Hx Reported Additional Past Surgical History / Comment(s): EGD Past Anesthesia/Blood Transfusion Reactions: No Reported Reaction Past Psychological History: Anxiety, Bipolar, Depression, Schizoaffective Disorder Smoking Status: Current every day smoker Past Alcohol Use History: None Reported Past Drug Use History: Cocaine, Marijuana, Methamphetamine, Opiates - Past Family History Mother History Unknown: Yes Additional Family Medical History / Comment(s): from suicide attempt Father History Unknown: Yes Additional Family Medical History / Comment(s): Reports that he is currently in the stages of dying- but wont clarify further. Inititally the patient stated his father was . General Exam - General Exam Comments Initial Comments: GENERAL: Patient is well-developed and well-nourished. Patient is nontoxic and well- hydrated and is in no acute distress. ENT: Neck is soft and supple. No significant lymphadenopathy is noted. Oropharynx is clear. Moist mucous membranes. Neck has full range of motion without eliciting any pain. EYES: The sclera were anicteric and conjunctiva were pink and moist. Extraocular movements were intact and pupils were equal round and reactive to light. Eyelids were unremarkable. PULMONARY: Unlabored respirations. Good breath sounds bilaterally. No audible rales rhonchi or wheezing was noted. CARDIOVASCULAR: There is a regular rate and rhythm without any murmurs gallops or rubs. ABDOMEN: Soft and nontender with normal bowel sounds. SKIN: Skin is clear with no lesions or rashes and otherwise unremarkable. NEUROLOGIC: Patient is alert and oriented x3. Cranial nerves II through XII are grossly intact. Motor and sensory are also intact. Normal speech, volume and content. Symmetrical smile. MUSCULOSKELETAL: Normal extremities with adequate strength and full range of motion. LYMPHATICS: No significant lymphadenopathy is noted PSYCHIATRIC: Patient is making bizarre statements. Patient states he does all sorts of drugs constantly He states he did drugs today. Patient made a statement according to the petition to scalp somebody at [facility] Course Vital Signs 04/09/23 11:10 Temperature 99.0 F Pulse Rate 106 H Respiratory 18 Rate Blood Pressure 130/89 O2 Sat by Pulse 97 Oximetry Medical Decision Making - Medical Decision Making Was pt. sent in by a medical professional or institution (, PA, COMMUNICATION ASSISTANT, urgent care, hospital, or [facility]...) When possible be specific @ -No Did you speak to anyone other than the patient for history (EMS, parent, family, police, friend...)? What history was obtained from this source @ -Police brought the patient in and gave some of the history Did you review nursing and triage notes (agree or disagree)? Why? @ -I reviewed and agree with nursing and triage notes Were old charts reviewed (outside hosp., previous admission, EMS record, old EKG, old radiological studies, urgent care reports/EKG's, [facility] records)? Report findings @ -No old charts were reviewed Differential Diagnosis (chest pain, altered mental status, abdominal pain women, abdominal pain men, vaginal bleeding, weakness, fever, dyspnea, syncope, headache, dizziness, GI bleed, back pain, seizure, CVA, palpatations, mental health, musculoskeletal)? @ -Differential Mental Health Depression, anxiety, bipolar, psychosis, schizophrenia, borderline personality, situational depression, adjustment disorder, behavioral disorder, brain tumor, malingering, substance abuse, encephalopathy, medication reaction, dementia, hypothyroidism, degenerative neurologic disorder, lupus.... This is not meant to be all-inclusive list EKG interpreted by me (3pts min.). @ -As above X-rays interpreted by me (1pt min.). @ -None done CT interpreted by me (1pt min.). @ -None done U/S interpreted by me (1pt. min.). @ -None done What testing was considered but not performed or refused? (CT, X-rays, U/S, labs)? Why? @ -None What meds were considered but not given or refused? Why? @ -None Did you discuss the management of the patient with other professionals (professionals i.e. , PA, COMMUNICATION ASSISTANT, lab, RT, psych nurse, social insurance adviser, well tester, teacher, patient transport officer, medical case worker)? Give summary @ -I spoke with EPS nurse and he spoke with the psychiatrist they agreed the patient needed to be admitted Was smoking cessation discussed for >3mins.? @ -No Was critical care preformed (if so, how long)? @ -No Were there social determinants of health that impacted care today? How? (Homelessness, low income, unemployed, alcoholism, drug addiction, transportation, low edu. Level, literacy, decrease access to med. care, [place] [facility], rehab)? @ -No Was there de-escalation of care discussed even if they declined (Discuss DNR or withdrawal of care, Hospice)? DNR status @ -No What co-morbidities impacted this encounter? (DM, HTN, Smoking, COPD, CAD, Cancer, CVA, ARF, Chemo, Hep., AIDS, mental health diagnosis, sleep apnea, morbid obesity)? @ -None Was patient admitted / discharged? Hospital course, mention meds given and route, prescriptions, significant lab abnormalities, going to OR and other pertinent info. @ -Patient has been evaluated by myself and EPS and there was consultation with the psychiatrist and patient will be admitted. Undiagnosed new problem with uncertain prognosis? @ -No Drug Therapy requiring intensive monitoring for toxicity (Heparin, Nitro, Insulin, Cardizem)? @ -No Were any procedures done? @ -No Diagnosis/symptom? @ -Acute psychosis Acute, or Chronic, or Acute on Chronic? @ -Acute Uncomplicated (without systemic symptoms) or Complicated (systemic symptoms)? @ -Complicated Side effects of treatment? @ -No Exacerbation, Progression, or Severe Exacerbation? @ -No Poses a threat to life or bodily function? How? (Chest pain, [place], [place], pneumonia, PE, COPD, DKA, ARF, appy, cholecystitis, CVA, Diverticulitis, Homicidal, Suicidal, threat to staff... and all critical care pts) @ -No Disposition Clinical Impression: Acute psychosis Disposition: ADMITTED IP TO THIS HOSP Referrals: [facility] [Primary Care Provider] - 1-2 days Time of Disposition: 13:25
[2023-04-09 15:57] LABS: Amphetamine Screen,Urine Detected (NotDetected); Barbiturate Screen,Urine Not Detected (NotDetected); Benzodiazepines Screen,Urine Not Detected (NotDetected); Cocaine Screen,Urine Detected (NotDetected); Methadone Screen, Urine Not Detected (NotDetected); Opiate Screen,Urine Not Detected (NotDetected); Oxycodone Screen, Urine Not Detected (NotDetected); Phencyclidine Screen,Urine Not Detected (NotDetected); Tricyclic Antidepressant,Urine Not Detected (NotDetected); Urn Cannabinoid Scrn Detected (NotDetected)
[2023-04-09] MEDS ORDERED: MAG HYDROX/AL HYDROX/SIMETH 30 ML CUP PO PRN (18:40)
[2023-04-09] MEDS ORDERED: ACETAMINOPHEN TAB 325 MG TAB PO PRN (18:40)
[2023-04-09] MEDS ORDERED: IBUPROFEN 600 MG TAB PO PRN (18:40)
[2023-04-09] MEDS ORDERED: MAGNESIUM HYDROXIDE 2,400 MG/30 ML CUP PO PRN (18:40)
[2023-04-09] MEDS ORDERED: ALBUTEROL INHALER 60 PUFF/8 GM INHALER (MHU) INHALATION PRN (18:40)
[2023-04-09] MEDS ORDERED: LORazepam 2 MG/ML INJ IM PRN (19:32)
[2023-04-09] MEDS ORDERED: HALOPERIDOL LACTATE 5 MG/ML 1 ML VIAL IM PRN (19:32)
[2023-04-09] MEDS: haloperidoL 5 MG TAB PO PRN (21:09)
[2023-04-09] MEDS: OLANZapine 10 MG TAB PO SCH (21:09)
[2023-04-09] MEDS: LORazepam 1 MG TAB PO PRN (21:09)
[2023-04-10] MEDS: NICOTINE 14MG/24HR PATCH TRANSDERM SCH (09:20)
[2023-04-10] MEDS: PANTOPRAZOLE 40 MG TABLET PO SCH (09:20)
--- NOTE | 2023-04-10 10:38 | P.HP ---
Psychiatric H&P - . H&P Date: 04/10/23 History & Physical: Allergies Allergy/AdvReac Type Severity Reaction Status Date / Time cat dander Allergy Itching Verified 04/09/23 11:54 banana AdvReac Nausea Verified 04/09/23 11:54 oxcarbazepine AdvReac seizures Verified 04/09/23 11:54 From Trileptal paliperidone From Invega AdvReac delusional Verified 04/09/23 11:54 risperidone From Risperdal AdvReac seizures Verified 04/09/23 11:54 Vital Signs Temp 98.1 F 04/09/23 21:49 Pulse 109 H 04/09/23 21:49 Resp 18 04/09/23 21:49 BP 142/91 04/09/23 21:49 Pulse Ox 97 04/09/23 21:49 FiO2 Intake & Output 04/09/23 04/09/23 04/10/23 06:59 18:59 06:59 Weight 61.235 kg 60.526 kg Laboratory Last Values Urine Opiates Screen Not Detected (NotDetected) 04/09/23 15:34 Ur Oxycodone Screen Not Detected (NotDetected) 04/09/23 15:34 Urine Methadone Screen Not Detected (NotDetected) 04/09/23 15:34 Ur Propoxyphene Screen Not Detected (NotDetected) 04/09/23 15:34 Ur Barbiturates Screen Not Detected (NotDetected) 04/09/23 15:34 U Tricyclic Antidepress Not Detected (NotDetected) 04/09/23 15:34 Ur Phencyclidine Scrn Not Detected (NotDetected) 04/09/23 15:34 Ur Amphetamines Screen Detected (NotDetected) H 04/09/23 15:34 U Methamphetamines Scrn Detected (NotDetected) H 04/09/23 15:34 U Benzodiazepines Scrn Not Detected (NotDetected) 04/09/23 15:34 Urine Cocaine Screen Detected (NotDetected) H 04/09/23 15:34 U Marijuana (THC) Screen Detected (NotDetected) H 04/09/23 15:34 Coronavirus (PCR) Not Detected (Not Detectd) 04/09/23 15:34 04/10/23 00:37 Identifying data; Patient is a 47 yo male with a previous diagnosis of schizophrenia and comorbid substance use disorder: psychedelics, alcohol, homeless HPI: Patient was seen yesterday in the ER and was found to be bizarre and psychotic, he apparently threatened to harm someone at [facility] accoridng to ED note. Patient has a long hx of several psychiatric inpatient admissions in the past, hx of schizoaffective disorder and polysubtance use, homelessness. He was admitted to the [facility] last night. Petition states that "Harpreet was walking out of [facility] when this chart writer was entering and Harpreet stated you are bina I don't scalp you right now" and pulled a pair of scissors out of his back pocket. Harpreet was presenting as floridly psychotic". Patient appeared to have a disheveled appearance, he was lying in bed and sleeping. Patient was awoken briefly by chart writer however had his eyes closed. She was fairly uncooperative, irritable and states that "I don't want to talk right now thanks". He was asked about the reason why he came to the hospital he states that "I don't want to give me those details". When asked more about his medications and his treatment at [facility] patient continued to refuse to answer. He states that "if you give me anything besides Zyprexa I'll file a lawsuit against you". At this time he is denying any auditory or visual hallucinations denying any suicidal or homicidal ideations intent or plan. Past Psychiatric history: he was last admitted to MHU in 02/22, he presented with active psychotic symptom of hallucinatons and delusions mixed with bizzare behavioral disturbances. His previous treatment has lapsed and hence his condition worsened markedlyn, previous diagnosis include schizoaffective disorder comorbid substance induced psychosis: cannabis, psychedics: (Psilocybin and query fantany glass designer drugs available in the drug trafficking culture ). He currently follows up at [facility] with Dr Fernandes. He was last discharged from the [facility] on Prolixin Dec DIMAS to help ensure compliance. denies any hx of suicide attempts Subtance use hx: PAtient smokes cigarettes, abuses cocaine, cannabis and also methamphetmine. UDS was positive for these. Patient also claims that he uses mushrooms aswell. Past medical history: Past Medical History: GERD/Reflux, Musculoskeletal Disorder, Seizure Disorder Additional Past Medical History / Comment(s): scoliosis, herpes, hiatal hernia, migraines, Hepatitis C History of Any Multi-Drug Resistant Organisms: None Reported Past Surgical History: No Surgical Hx Reported Additional Past Surgical History / Comment(s): EGD Past Anesthesia/Blood Transfusion Reactions: No Reported Reaction Past Psychological History: Anxiety, Bipolar, Depression, Schizoaffective Disorder Smoking Status: Current every day smoker Past Alcohol Use History: None Reported Past Drug Use History: Cocaine, Marijuana, Methamphetamine, Opiates Social Hx: patent is homeless, unwilling to give further information. Mental status examination: General Appearance: Patient appears to be thin, disheveled appearance, stated ag e is lethargic, uncooperative. Patient appears to have poor hygiene and grooming. Behavior: Patient is laying in bed, sheet covering him and uncooperative, evasive. Speech: Patient's speech is fluent and nonpressured. [place]. Mood/Affect: Patient reports their mood is "okay", affect is congruent and constricted. Suicidality/Homicidality: Patient denies having any homicidal ideation intent or plan. Denies any suicidal ideations intent or plan Perceptions: Patient denies any visual hallucinations and denies any auditory hallucinations Though content/process: [place], poverty of content. Evasive. Memory and concentration: Unwilling to participate. Judgment and insight: Chronically poor STRENGTHS/WEAKNESSES: strength is that patient is resilient. Weakness is that patient has poor judgment and is impulsive and significant substance use INTELLECT: average IMPRESSIONS: Schizoaffective disorder bipolar type Cannabis use disorder severe Amphetamine type substance use disorder severe Cocaine use disorder Other hallucinogen use disorder severe Homelessness Nicotine dependence PLAN: -Patient is admitted under involuntary status to [facility] for stabilization of psychiatric symptoms and safety. Patient has not signed adult voluntary form and medication consent and is placed in patient's chart. A second certification was completed and along with petition will be filed for court. -Medications : patient was on prolixin Dec 50 mg IM s3instt from [facility], he was scheduled for last dose on 03/25. continue zyprexa 10 mg qhs for sleep/psychosis/mood. -Ativan and Haldol PRN for agitation/aggression -Patient was informed of the risks, benefits and side effects of the medication -Internal Medicine consult to perform medical evaluation and physical. -NRT - nicotine patch -SW on board for discharge planning. Encourage patient to participate in groups to work on coping skills. Will await deferral and court date. 04/10/23 10:22 04/10/23 10:33
[2023-04-10] MEDS: NICOTINE GUM (POLACRILEX) 2 MG GUM BUCCAL PRN (17:30)
[2023-04-10] MEDS: OLANZapine 10 MG TAB PO SCH (21:39)
--- NOTE | 2023-04-11 04:47 | P.PN ---
Progress Note - Text Progress Note Date: 04/11/23 psychotic and could not be evaluated at this time
[2023-04-11] MEDS: NICOTINE 14MG/24HR PATCH TRANSDERM SCH (08:43)
[2023-04-11] MEDS: NICOTINE GUM (POLACRILEX) 2 MG GUM BUCCAL PRN ×2 (08:43→18:36)
[2023-04-11] MEDS: PANTOPRAZOLE 40 MG TABLET PO SCH (08:43)
[2023-04-11] MEDS: haloperidoL 5 MG TAB PO PRN ×2 (09:40→18:36)
[2023-04-11] MEDS: LORazepam 1 MG TAB PO PRN ×2 (09:40→18:36)
--- NOTE | 2023-04-11 14:02 | P.PN ---
Progress Note - Text Progress Note Date: 04/11/23 Interval History: Patient was seen sitting in the hallways today, was bizarre and rambling, nons ensical speech. Patient refused his zyprexa dose last night. He did sign a deferral this morning with his collections attorney. Patient was seen laying in bed after lunch and agreeable to commercial insurance underwriter briefly. He is fairly concrete however continues to ramble at times intermittently. He asked about "when can I get my freedom back". He also made several bizarre statements and was illogical. He claims that he did not want to take the Zyprexa last night for unknown reasons. Denies any depression or anxiety. He continues to respond to internal stimuli and speaking to himself at times in his room and also in the hallway. History disheveled in appearance. At this time patient denies any suicidal or homical ideations, intent or plan. Patient denies any auditory, visual hallucinations. Patient denies any side effects from the medications and has been compliant with meds. Mental Status Exam: General Appearance: Patient appears to be thin, disheveled appearance, stated age is uncooperative. Patient appears to have poor hygiene and grooming. Behavior: Patient is laying in bed, sheet covering him and uncooperative, evasive, improving mildly Speech: Patient's speech is fluent and nonpressured. rambling, talking to himself. Mood/Affect: Patient reports their mood is "ok", affect is congruent and constricted. Suicidality/Homicidality: Patient denies having any homicidal ideation intent or plan. Denies any suicidal ideations intent or plan Perceptions: Patient denies any visual hallucinations and denies any auditory hallucinations Though content/process: [place], poverty of content. rambling illogical. Memory and concentration: Unwilling to participate. Judgment and insight: Chronically poor IMPRESSIONS: Schizoaffective disorder bipolar type Cannabis use disorder severe Amphetamine type substance use disorder severe Cocaine use disorder Other hallucinogen use disorder severe Homelessness Nicotine dependence PLAN: -Patient is admitted under involuntary status to [facility] for stabilization of psychiatric symptoms and safety. Patient has not signed adult voluntary form and medication consent and is placed in patient's chart. -Medications : ordered prolixin Dec 50 mg IM today and scheduled for [id number]. continue zyprexa 10 mg qhs for sleep/psychosis/mood. patient has been refusing his meds. -Ativan and Haldol PRN for agitation/aggression -NRT - nicotine patch -SW on board for discharge planning. Encourage patient to participate in groups to work on coping skills. patient signed a deferral with the collections attorney.
[2023-04-11] MEDS ORDERED: fluPHENAZine DECANOATE 25 MG/ML 5ML MDV IM ONE (16:00)
[2023-04-11] MEDS: OLANZapine 10 MG TAB PO SCH (22:27)
[2023-04-12] MEDS: NICOTINE 14MG/24HR PATCH TRANSDERM SCH (08:45)
[2023-04-12] MEDS: PANTOPRAZOLE 40 MG TABLET PO SCH (09:03)
[2023-04-12] MEDS: NICOTINE GUM (POLACRILEX) 2 MG GUM BUCCAL PRN ×4 (09:04→21:18)
[2023-04-12] MEDS: LORazepam 1 MG TAB PO PRN (11:10)
--- NOTE | 2023-04-12 11:18 | P.PN ---
Progress Note - Text Progress Note Date: 04/12/23 Interval History: Patient was seen laying in his bed this morning and was agreeable to speak to communications writer. Patient has been seen socializing more on the unit. He claimed that he believed that somebody was "hurting my daughter" and states that he had a hallucination about it. She was tearful when describing this and states that "I'm so glad it didn't happen". She apologized for yesterday. He claims that today he is doing "okay" and states that he refused the injection yesterday due to having acid reflux. We spoke about medications for the acid reflux and is agreeable to try famotidine today. He states that he is agreeable to take the Prolixin shot today. States that he is able to sleep a little better last night.continues to be bizarre and rambling at times illogical. Oddly improving hygiene and grooming. At this time patient denies any suicidal or homical ideations, intent or plan. Patient denies any auditory, visual hallucinations. Mental Status Exam: General Appearance: Patient appears to be thin, disheveled appearance, stated age is cooperative. Patient appears to have mildly improving hygiene and grooming. Behavior: Patient is laying in bed, and more cooperative, improving mildly Speech: Patient's speech is fluent and nonpressured. rambling, talking to himself. Mood/Affect: Patient reports their mood is "ok", affect is congruent and constricted. Suicidality/Homicidality: Patient denies having any homicidal ideation intent or plan. Denies any suicidal ideations intent or plan Perceptions: Patient denies any visual hallucinations and denies any auditory hallucinations Though content/process: bizarre, poverty of content. rambling illogical, improving rapidly. Memory and concentration: Alert and oriented 3, fair attention span. Judgment and insight: Chronically poor, improving mildly IMPRESSIONS: Schizoaffective disorder bipolar type Cannabis use disorder severe Amphetamine type substance use disorder severe Cocaine use disorder Other hallucinogen use disorder severe Homelessness Nicotine dependence PLAN: -Patient is admitted under involuntary status to [facility] for stabilization of psychiatric symptoms and safety. Patient has not signed adult voluntary form and medication consent and is placed in patient's chart. -Medications : re-ordered prolixin Dec 50 mg IM today as he refused it yesterday and next dose scheduled for [id number]. continue zyprexa 10 mg qhs for sleep/psychosis/mood. -Ativan and Haldol PRN for agitation/aggression -NRT - nicotine patch -SW on board for discharge planning. Encourage patient to participate in groups to work on coping skills. patient signed a deferral with the internet marketing consultant however due to patient refusing meds afterwards will file a demand for hearing.
[2023-04-12] MEDS: FAMOTIDINE 20 MG TAB PO SCH ×2 (11:48→21:17)
[2023-04-12] MEDS ORDERED: fluPHENAZine DECANOATE 25 MG/ML 5ML MDV IM ONE (12:00)
[2023-04-12] MEDS: OLANZapine 10 MG TAB PO SCH (21:17)
--- NOTE | 2023-04-13 04:05 | P.PN ---
Progress Note - Text Progress Note Date: 04/12/23 patient refused evaluation
[2023-04-13] MEDS: FAMOTIDINE 20 MG TAB PO SCH ×2 (08:50→20:58)
[2023-04-13] MEDS: NICOTINE 14MG/24HR PATCH TRANSDERM SCH (08:51)
[2023-04-13] MEDS: PANTOPRAZOLE 40 MG TABLET PO SCH (08:51)
--- NOTE | 2023-04-13 17:35 | P.PN ---
Progress Note - Text Progress Note Date: 04/13/23 Interval history: Patient was seen pacing the hallways and was directable and agreeable to speak with business writer. He claims his mood is "wonderful, anxious, I wish I was outta here". He appears irritable, guarded, suspicious and superficially cooperative. He appears anxious and states he wants "to run free, need to discuss some things with the freddie I almost assaulted". His speech is rambling, appears paranoid and guarded. He received Prolixin decanoate 50 mg IM yesterday. At this time patient denies any suicidal or homicidal ideations intent or plan. Denies any auditory or visual hallucinations. Patient denies any side effects from the medications and has been compliant with meds. Mental status exam: General Appearance: Patient appears to be stated age is alert, directable, appears superficially cooperative. Behavior: No agitated behavior. Patient is irritable, somewhat guarded and superficially cooperative. Speech: Patient's speech is fluent and non-pressured. Mood/Affect: Mood is irritable, affect is congruent and constricted. Suicidality/Homicidality: Patient denies having any suicidal or homicidal ideation intent or plan. Perceptions: Patient denies any auditory or visual hallucinations. Though content/process: He does not specifically express any overt delusional thought content to me today but he does appear paranoid and suspicious. Thought process is rambling. Memory and concentration: AOX3, grossly intact for the purposes of this session Judgment and insight: improving mildly Assessment/Plan: Continue with current diagnosis. Patient continues to meet criteria for inpatient psychiatric admission for symptom stabilization and safety. Patient will be maintained on current psychotropic medication regimen. Monitor for medication compliance and for any psychotropic medication side effects. Will continue to monitor ongoing response to treatment. Encouraged participation in milieu.
[2023-04-13] MEDS: OLANZapine 10 MG TAB PO SCH (20:58)
[2023-04-13] MEDS: NICOTINE GUM (POLACRILEX) 2 MG GUM BUCCAL PRN (20:59)
[2023-04-14] MEDS: PANTOPRAZOLE 40 MG TABLET PO SCH (07:54)
[2023-04-14] MEDS: FAMOTIDINE 20 MG TAB PO SCH ×2 (07:54→21:12)
[2023-04-14] MEDS: NICOTINE 14MG/24HR PATCH TRANSDERM SCH (10:46)
[2023-04-14] MEDS: NICOTINE GUM (POLACRILEX) 2 MG GUM BUCCAL PRN ×2 (17:08→21:13)
--- NOTE | 2023-04-14 18:36 | P.PN ---
Progress Note - Text Progress Note Date: 04/14/23 Interval history: Patient was resting on his bed and was directable and agreeable to speak with database report writer. He claims his mood is "fine". He appears withdrawn, is isolating to his room, is irritable, guarded, engages minimally in assessment, keeps his responses brief, but mentions he has "physical things to take care of in the future". He received Prolixin decanoate 50 mg IM yesterday. At this time patient denies any suicidal or homicidal ideation, intent or plan. Denies any auditory or visual hallucinations. Patient denies any side effects from the medications and has been compliant with meds. Mental status exam: General Appearance: Patient appears to be stated age is alert, directable, appears superficially cooperative. Behavior: No agitated behavior. Patient is irritable, somewhat guarded and superficially cooperative. Speech: Patient's speech is fluent and non-pressured. Mood/Affect: Mood is "fine", affect is irritable. Suicidality/Homicidality: Patient denies having any suicidal or homicidal ideation intent or plan. Perceptions: Patient denies any auditory or visual hallucinations. Though content/process: He does not specifically express any overt delusional thought content to me today but he does appear paranoid and suspicious. Thought process is rambling. Memory and concentration: AOX3, grossly intact for the purposes of this session Judgment and insight: improving mildly Assessment/Plan: Continue with current diagnosis. Patient continues to meet criteria for inpatient psychiatric admission for symptom stabilization and safety. Increase Zyprexa to 15 mg QHS for mood/psychosis. Monitor for medication compliance and for any psychotropic medication side effects. Will continue to monitor ongoing response to treatment. Encouraged participation in milieu.
[2023-04-14] MEDS: OLANZapine 7.5 MG TAB PO SCH (21:13)
--- NOTE | 2023-04-15 05:54 | P.PN ---
Progress Note - Text Progress Note Date: 04/15/23 Attempted to see the patient in the MHU. The patient refused to be seen or be evaluated.
[2023-04-15] MEDS: NICOTINE 14MG/24HR PATCH TRANSDERM SCH (08:33)
[2023-04-15] MEDS: FAMOTIDINE 20 MG TAB PO SCH ×2 (08:34→20:57)
[2023-04-15] MEDS: PANTOPRAZOLE 40 MG TABLET PO SCH (08:34)
--- NOTE | 2023-04-15 13:58 | P.PN ---
Progress Note - Text Progress Note Date: 04/15/23 Interval history: Patient was seen talking with staff at nurse's and was directable and agreeable to speak with creative writer. He claims his mood is "fine, thanks". He reports his mood is "calm and happy", but still somewhat guarded on assessment, but does not appear as suspicious or paranoid as he has in previous days. He appears less irritable, more cooperative, less withdrawn since increasing his Zyprexa to 15 mg QHS last night. Yesterday evening he was observed attending to itnernal stimuli and engaged in self-dialogue, but today he does not appear to be attending to internal stimuli and appears to focus better with thoughts more coherent. At this time patient denies any suicidal or homicidal ideation, intent or plan. Denies any auditory or visual hallucinations. Patient denies any side effects from the medications and has been compliant with meds. Mental status exam: General Appearance: Patient appears to be stated age is alert, directable, appears superficially cooperative. Behavior: No agitated behavior. Patient is calm and superficially cooperative, still somewhat guarded on assessment. Speech: Patient's speech is fluent and non-pressured. Mood/Affect: Mood is "fine, thanks" "calm and happy", affect is irritable. Suicidality/Homicidality: Patient denies having any suicidal or homicidal ideation intent or plan. Perceptions: Patient denies any auditory or visual hallucinations. Though content/process: He does not specifically express any overt delusional thought content to me today. Thought process is more coherent Memory and concentration: AOX3, grossly intact for the purposes of this session Judgment and insight: improving mildly Assessment/Plan: Continue with current diagnosis. Patient continues to meet criteria for inpatient psychiatric admission for symptom stabilization and safety. Demand for hearing was submitted to the court last Saturday. Continue Zyprexa 15 mg QHS for mood/psychosis. Monitor for medication compliance and for any psychotropic medication side effects. Will continue to monitor ongoing response to treatment. Encouraged participation in milieu.
[2023-04-15] MEDS: OLANZapine 7.5 MG TAB PO SCH (20:57)
[2023-04-16] MEDS: NICOTINE 14MG/24HR PATCH TRANSDERM SCH (08:33)
[2023-04-16] MEDS: FAMOTIDINE 20 MG TAB PO SCH ×2 (08:33→21:02)
[2023-04-16] MEDS: PANTOPRAZOLE 40 MG TABLET PO SCH (08:34)
--- NOTE | 2023-04-16 14:54 | P.PN ---
Progress Note - Text Progress Note Date: 04/16/23 Interval history: Patient was seen active in the hallway and was directable and agreeable to speak with publications writer. He appears irritable, anxious and focused on his court date tomorrow. He slept only 4-5 hours last night. His displays mood and affective lability; he appears to present himself as calm and cooperative to me, but can easily escalate when discussing certain topics, and can make provocative statements and becomes dismissive and agitated. Apparently, yesterday he called his guardian's office and left the following message threatening harm to himself and others. The guardian's office was very concerned about this message and sent a typed dictation of the message to our treatment team as follows: Presley: "Ok Iram, it's Presley. I hope everyone's having fun on vacation with my money. I have court in 2 mornings. 2 days after that there's probably going to be a hanging. At least Hold Worker Dorota isn't going to be shot. Jenniefrkailey De [place] on the [place] my cousin's going to cut the rope after he finds me. I'll be fine. Don't worry about it. Love noemi. Bye." On discussing this message with him today, he becomes upset, tells me that message is no one's business what happens to him, and abruptly ends the assessment and walks away. He does not admit to auditory of visual hallucinations, but does appear suspicious and paranoid and mistrusting of others, and is often seen engaged in self-dialogue. Patient denies any side effects from the medications and has been compliant with meds. Mental status exam: General Appearance: Patient appears to be stated age is alert, slender male with multiple tattoos and poor dentition. Behavior: Patient appears more irritable today, escalates, makes provocative statements, dismissive, more easily agitated. Speech: Patient's speech is fluent, loud and non-pressured. Mood/Affect: Mood is irritable, affect is labile. Suicidality/Homicidality: Patient made a phone call to his guardian's office making suicidal and homicidal threats. Perceptions: He does not admit to auditory of visual hallucinations, but does a ppear suspicious and paranoid and mistrusting of others, and is often seen engaged in self-dialogue. Though content/process: He does not specifically express any overt delusional thought content to me today, but has been making provocative comments and threats. Thought process is more coherent and organized. Memory and concentration: AOX3, grossly intact for the purposes of this session Judgment and insight: poor Assessment/Plan: Continue with current diagnosis. Patient continues to meet criteria for inpatient psychiatric admission for symptom stabilization and safety. Demand for hearing was submitted to the court last Saturday. Court date scheduled for tomorrow. Increase Zyprexa to 20 mg QHS for mood/psychosis. Monitor for medication compliance and for any psychotropic medication side e ffects. Will continue to monitor ongoing response to treatment. Encouraged participation in milieu.
[2023-04-16] MEDS: OLANZapine 10 MG TAB PO SCH (21:02)
[2023-04-17] MEDS: NICOTINE 14MG/24HR PATCH TRANSDERM SCH (08:44)
[2023-04-17] MEDS: FAMOTIDINE 20 MG TAB PO SCH ×2 (08:44→20:09)
[2023-04-17] MEDS: PANTOPRAZOLE 40 MG TABLET PO SCH (08:44)
[2023-04-17] MEDS: NICOTINE GUM (POLACRILEX) 2 MG GUM BUCCAL PRN ×3 (15:04→20:10)
--- NOTE | 2023-04-17 15:38 | P.PN ---
Progress Note - Text Progress Note Date: 04/17/23 Interval history: Patient was seen active in the hallway and was directable and agreeable to speak with junior underwriter. He appears calmer today but still has an irritable edge at baseline. Per nursing notes, patient did not fall asleep last night until 3:45 am and slept only 4 hours last night. He attended court this morning and was placed on a court order. He appears to present himself as calm and cooperative to me, but can make provocative statements and has the potential to escalate. Per nursing notes, he told his director of pharmacy today that he wanted to hang himself in the [place], and patient was also observed attending to internal stimuli today. He denies SI/HI intent or plan to me today. He denies auditory or visual hallucinations. He reports good mood, states he is doing "wonderful". Mental status exam: General Appearance: Patient appears to be stated age, slender male with multiple tattoos and poor dentition. Behavior: Patient appears more irritable today, escalates, makes provocative statements, dismissive, more easily agitated. Speech: Patient's speech is fluent, loud and non-pressured. Mood/Affect: Mood is calmer but with irritable edge, affect is constricted. Suicidality/Homicidality: Patient made suicidal threats to his director of pharmacy today (per nursing note), but denies SI/HI to me. Perceptions: He does not admit to auditory of visual hallucinations, but does appear suspicious and paranoid and mistrusting of others, and is often seen engaged in self-dialogue. Though content/process: He does not specifically express any overt delusional thought content to me today, but has been making provocative comments and threats. Thought process is more coherent and organized. Memory and concentration: AOX3, grossly intact for the purposes of this session Judgment and insight: poor Assessment/Plan: Continue with current diagnosis. Patient continues to meet criteria for inpatient psychiatric admission for symptom stabilization and safety. He has been placed on a court order. Continue Zyprexa 20 mg QHS for mood/psychosis, in addition to the Prolixin decan aote 50 mg IM q2 weeks he has already received. Consider transitioning oral Zyprexa to Zyprexa Relprevv. Monitor for medication compliance and for any psychotropic medication side effects. Will continue to monitor ongoing response to treatment. Encouraged participation in milieu.
[2023-04-17] MEDS: OLANZapine 10 MG TAB PO SCH (20:09)
[2023-04-18] MEDS: PANTOPRAZOLE 40 MG TABLET PO SCH (08:37)
[2023-04-18] MEDS: NICOTINE 14MG/24HR PATCH TRANSDERM SCH (08:37)
[2023-04-18] MEDS: FAMOTIDINE 20 MG TAB PO SCH ×2 (08:39→20:02)
--- NOTE | 2023-04-18 11:22 | P.PN ---
Progress Note - Text Progress Note Date: 04/18/23 Interval History: Patient was seen laying in his bed this morning and was agreeable to speak to sql report writer. Patient has been seen socializing more on the unit. Patient had court yesterday and had consented to the mental health treatment order. Patient has been taking his medications. He states that he is sleeping much better with the Zyprexa and doing well today. He is denying any depression or anxiety. He spoke more about his medications and he is okay with continuing to take them. He asked about discharge once again today. Patient continues to have fairly superficial insight into his need for treatment which appears to be chronic. He claims that he slept fairly last night, admits to fair appetite. mildly improving hygiene and grooming. At this time patient denies any suicidal or homical ideations, intent or plan. Patient denies any auditory, visual hallucinations. Mental Status Exam: General Appearance: Patient appears to be thin, disheveled appearance, stated age is cooperative. Patient appears to have mildly improving hygiene and grooming. Behavior: Patient is laying in bed, and more cooperative, improving mildly Speech: Patient's speech is fluent and nonpressured. rambling, Mood/Affect: Patient reports their mood is "alright", affect is congruent Suicidality/Homicidality: Patient denies having any homicidal ideation intent or plan. Denies any suicidal ideations intent or plan Perceptions: Patient denies any visual hallucinations and denies any auditory campbell llucinations Though content/process: more goal oriented. rambling and more logical, improving mildly Memory and concentration: Alert and oriented 3, fair attention span. Judgment and insight: Chronically poor, improving mildly IMPRESSIONS: Schizoaffective disorder bipolar type Cannabis use disorder severe Amphetamine type substance use disorder severe Cocaine use disorder Other hallucinogen use disorder severe Homelessness Nicotine dependence PLAN: -Patient is admitted under involuntary status and now court order to [facility]HU for stabilization of psychiatric symptoms and safety. Patient has not signed adult voluntary form and medication consent and is placed in patient's chart. -Medications : continue with prolixin Dec 50 mg IM [id number], last dose given on 04/12 and next dose will be due on 04/26. continue zyprexa 20 mg qhs for sleep/psychosis/mood. -Ativan and Haldol PRN for agitation/aggression -NRT - nicotine patch -SW on board for discharge planning. Encourage patient to participate in groups to work on coping skills. patient is now on an active treatment order for mental health treatment. GERTRUDE speaking with patients marquita today to help with discharge planning. PAtient is stabilizing on medications, improving psychiatrically and appears to be at his baseline. He will require ACT team monitoring. Patient has his own apartment at this time however marquita is concerned and not consenting to discharge.
[2023-04-18] MEDS: LORazepam 1 MG TAB PO PRN (15:12)
[2023-04-18] MEDS: NICOTINE GUM (POLACRILEX) 2 MG GUM BUCCAL PRN ×2 (16:54→19:19)
[2023-04-18] MEDS: OLANZapine 10 MG TAB PO SCH (20:02)
[2023-04-19 06:47] VITALS: BP 137/98; PULSE 91; RESP 17; TEMP 97.9
[2023-04-19] MEDS: PANTOPRAZOLE 40 MG TABLET PO SCH (08:05)
[2023-04-19] MEDS: NICOTINE 14MG/24HR PATCH TRANSDERM SCH (08:05)
[2023-04-19] MEDS: FAMOTIDINE 20 MG TAB PO SCH ×2 (08:05→20:01)
[2023-04-19 10:06] VITALS: BMI 21.5
--- NOTE | 2023-04-19 12:00 | P.PN ---
Progress Note - Text Progress Note Date: 04/19/23 Interval History: Patient was seen pacing the hallways this morning and was agreeable to speak to senior writer in his room today. Patient has been seen socializing more on the unit as been taking his medications and appears to be more cooperative today during the interview. He claims that he is doing fairly at nighttime. He claims that he is okay with going to the longterm temporarily before going back home. She asked about how he can retrieve his items and clothing from his apartment. He c laims that he slept much better last night and is doing well overall. He is denying any depression or anxiety. He asked about discharge once again today. Patient continues to have fairly superficial insight into his need for treatment which appears to be chronic. mildly improving hygiene and grooming. At this time patient denies any suicidal or homical ideations, intent or plan. Patient denies any auditory, visual hallucinations. Mental Status Exam: General Appearance: Patient appears to be thin, disheveled appearance, stated age is cooperative. Patient appears to have mildly improving hygiene and grooming. Behavior: Patient is laying in bed, and more cooperative, improving mildly Speech: Patient's speech is fluent and nonpressured. Mood/Affect: Patient reports their mood is "good", affect is congruent and improving Suicidality/Homicidality: Patient denies having any homicidal ideation intent or plan. Denies any suicidal ideations intent or plan Perceptions: Patient denies any visual hallucinations and denies any auditory hallucinations Though content/process: more goal oriented. rambling and more logical, improving mildly Memory and concentration: Alert and oriented 3, fair attention span. Judgment and insight: Chronically poor, improving mildly IMPRESSIONS: Schizoaffective disorder bipolar type Cannabis use disorder severe Amphetamine type substance use disorder severe Cocaine use disorder Other hallucinogen use disorder severe Homelessness Nicotine dependence PLAN: -Patient is admitted under involuntary status and now court order to MHU for stabilization of psychiatric symptoms and safety. Patient has not signed adult voluntary form and medication consent and is placed in patient's chart. -Medications : continue with prolixin Dec 50 mg IM [id number], last dose given on 04/12 and next dose will be due on 04/26. continue zyprexa 20 mg qhs for sleep/psychosis/mood. -Ativan and Haldol PRN for agitation/aggression -NRT - nicotine patch -SW on board for discharge planning. Encourage patient to participate in groups to work on coping skills. patient is now on an active treatment order for mental health treatment. SW speaking with patients gayolandadian today to help with discharge planning. PAtient is stabilizing on medications, improving psychiatrically and appears to be at his baseline. He will require ACT team monitoring. patient is approved for and agreeable to go to [facility] on saturday and will discharge then.
[2023-04-19] MEDS: NICOTINE GUM (POLACRILEX) 2 MG GUM BUCCAL PRN ×3 (14:39→21:02)
[2023-04-19] MEDS: LORazepam 1 MG TAB PO PRN (17:09)
[2023-04-19] MEDS: OLANZapine 10 MG TAB PO SCH (20:01)
[2023-04-19] MEDS: haloperidoL 5 MG TAB PO PRN (20:01)
[2023-04-20] MEDS: NICOTINE 14MG/24HR PATCH TRANSDERM SCH (09:18)
[2023-04-20] MEDS: FAMOTIDINE 20 MG TAB PO SCH ×2 (09:18→20:02)
[2023-04-20] MEDS: PANTOPRAZOLE 40 MG TABLET PO SCH (09:19)
--- NOTE | 2023-04-20 11:51 | P.PN ---
Subjective Progress Note Date: 04/20/23 Principal diagnosis: IMPRESSIONS: Schizoaffective disorder bipolar type Cannabis use disorder severe Amphetamine type substance use disorder severe Cocaine use disorder Other hallucinogen use disorder severe Homelessness Nicotine dependence Patient Name: Presley Elizalde Date of : 73 Patient Status: Inpatient Attending Provider: Lion Hughes Date: 04/20/23 Initialization Date: 04/20/23 Follow-up: Eliel Figueroa M.D. Progress Note - Text Progress Note Date: 04/19/23 Interval History: The patient was seen in his room where he was laying down on his bed Patient states that he is here because he was petitioned by his family He states that he rather not talk about it Patient stated that he is supposed to go home soon He denies any needs any help or treatment He is denying any depression or anxiety. He asked about discharge once again today. Patient continues to have fairly superficial insight into his need for treatment which appears to be chronic. At this time patient denies any suicidal or homical ideations, intent or plan. Patient denies any auditory, visual hallucinations. Patient did not show any interest in wanting to discuss any further and continues to be wanting to sleep Mental Status Exam: General Appearance: Patient appears to be thin, disheveled appearance, stated age is uncooperative. And uninterested Patient has a bit shipboard all the way up to his face Behavior: Patient is laying in bed, and uncooperative, Speech: Patient's speech is fluent and nonpressured. Mood/Affect: Patient reports nothing wrong with his moods Patient is irritable Suicidality/Homicidality: Patient denies having any homicidal ideation intent or plan. Denies any suicidal ideations intent or plan Perceptions: Patient denies any visual hallucinations and denies any auditory hallucinations Though content/process: more goal oriented. rambling and more logical, improving mildly Memory and concentration: Alert and oriented 3, fair attention span. Judgment and insight: Chronically poor, IMPRESSIONS: Schizoaffective disorder bipolar type Cannabis use disorder severe Amphetamine type substance use disorder severe Cocaine use disorder Other hallucinogen use disorder severe Homelessness Nicotine dependence PLAN: -Patient is admitted under involuntary status and now court order to MHU for stabilization of psychiatric symptoms and safety. Patient has not signed adult voluntary form and medication consent and is placed in patient's chart. -Medications : continue with prolixin Dec 50 mg IM [id number], last dose given on 04/12 and next dose will be due on 04/26. continue zyprexa 20 mg qhs for sleep/psychosis/mood. -Ativan and Haldol PRN for agitation/aggression -NRT - nicotine patch -GERTRUDE on board for discharge planning. Encourage patient to participate in groups to work on coping skills. patient is now on an active treatment order for mental health treatment. SW has spoken with with patients marquita to help with discharge planning. He will require ACT team monitoring. patient is approved for and agreeable to go to [facility] Eliel Figueroa M.D. 04/20/2023 Objective - Vital Signs Vital signs: Vital Signs Temp 97.9 F 04/19/23 05:00 Pulse 91 04/19/23 05:00 Resp 17 04/19/23 05:00 BP 137/98 04/19/23 05:00 Pulse Ox 96 04/19/23 05:00 FiO2 Intake & Output 04/19/23 04/20/23 04/20/23 18:59 06:59 18:59 Weight 60.526 kg
[2023-04-20] MEDS: NICOTINE GUM (POLACRILEX) 2 MG GUM BUCCAL PRN ×2 (13:14→17:02)
[2023-04-20] MEDS: haloperidoL 5 MG TAB PO PRN (18:26)
[2023-04-20] MEDS: OLANZapine 10 MG TAB PO SCH (20:02)
--- NOTE | 2023-04-21 09:17 | P.PN ---
Subjective Progress Note Date: 04/21/23 Principal diagnosis: IMPRESSIONS: Schizoaffective disorder bipolar type Cannabis use disorder severe Amphetamine type substance use disorder severe Cocaine use disorder Other hallucinogen use disorder severe Homelessness Nicotine dependence Patient Name: Presley Elizalde Date of : 73 Patient Status: Inpatient Attending Provider: Lion Hughes Date: 04/21/23 Initialization Date: 04/21/23 Follow-up: Eliel Figueroa M.D. Interval History: The patient was laying in bed with his face covered by the bedsheet Patient has several files and paper scattered on the floor which she states that he is planning to get rid of He states that he is supposed to be placed in a half-way for residential care and that is waiting for his approval Patient states that he otherwise wants to be left alone and has nothing else to talk about Mental Status Exam: General Appearance: Patient appears to be thin, disheveled appearance, stated age is uncooperative. And uninterested Patient has the bedsheet all the way up to his face Behavior: Patient is laying in bed, and uncooperative, Speech: Patient's speech is fluent and nonpressured. Mood/Affect: Patient reports nothing wrong with his moods Patient is irritable Suicidality/Homicidality: Patient denies having any homicidal ideation intent or plan. Denies any suicidal ideations intent or plan Perceptions: Patient denies any visual hallucinations and denies any auditory hallucinations Though content/process: more goal oriented. rambling and more logical, improving mildly Memory and concentration: Alert and oriented 3, fair attention span. Judgment and insight: Chronically poor, IMPRESSIONS: Schizoaffective disorder bipolar type Cannabis use disorder severe Amphetamine type substance use disorder severe Cocaine use disorder Other hallucinogen use disorder severe Homelessness Nicotine dependence PLAN: -Patient is admitted under involuntary status and now court order to MHU for stabilization of psychiatric symptoms and safety. Patient has not signed adult voluntary form and medication consent and is placed in patient's chart. -Medications : continue with prolixin Dec 50 mg IM [id number], last dose given on 04/12 and next dose will be due on 04/26. continue zyprexa 20 mg qhs for sleep/psychosis/mood. -Ativan and Haldol PRN for agitation/aggression -NRT - nicotine patch -GERTRUDE on board for discharge planning. Encourage patient to participate in groups to work on coping skills. Motivation for change remains rather limited patient is now on an active treatment order for mental health treatment. SW has spoken with with patients gaurdian to help with discharge planning. He will require ACT team monitoring. patient is approved for and agreeable [facility] 04/21/2023 Objective - Vital Signs Vital signs: Vital Signs Temp 97.9 F 04/19/23 05:00 Pulse 91 04/19/23 05:00 Resp 17 04/19/23 05:00 BP 137/98 04/19/23 05:00 Pulse Ox 96 04/19/23 05:00 FiO2
[2023-04-21] MEDS: PANTOPRAZOLE 40 MG TABLET PO SCH ×2 (10:09→11:16)
[2023-04-21] MEDS: FAMOTIDINE 20 MG TAB PO SCH ×3 (10:26→19:34)
[2023-04-21] MEDS: NICOTINE 14MG/24HR PATCH TRANSDERM SCH ×2 (10:26→11:16)
[2023-04-21] MEDS: NICOTINE GUM (POLACRILEX) 2 MG GUM BUCCAL PRN ×2 (15:12→18:33)
[2023-04-21] MEDS: LORazepam 1 MG TAB PO PRN (15:12)
[2023-04-21] MEDS: OLANZapine 10 MG TAB PO SCH (19:34)
[2023-04-22] MEDS: NICOTINE 14MG/24HR PATCH TRANSDERM SCH (07:54)
[2023-04-22] MEDS: PANTOPRAZOLE 40 MG TABLET PO SCH (07:55)
[2023-04-22] MEDS: FAMOTIDINE 20 MG TAB PO SCH (07:55)
--- NOTE | 2023-04-22 11:51 | P.DS ---
Providers Date of admission: 04/09/23 18:37 Expected date of discharge: 04/22/23 Attending physician: Lion Hughes MD Consults: 04/09/23 19:32 Consult Physician Routine Consulting Provider: Leonela Physician Consult Reason/Comments: H&P and medical Do you want consulting provider notified?: Yes Primary care physician: [facility] - Discharge Diagnosis(es) (1) Schizoaffective disorder, bipolar type Current Visit: Yes Status: Acute Priority: High (2) Cannabis use disorder, severe, dependence Current Visit: Yes Status: Acute Priority: Medium (3) Amphetamine-type substance use disorder, moderate Current Visit: Yes Status: Acute Priority: High (4) Cocaine use disorder Current Visit: Yes Status: Acute Priority: Medium (5) Hallucinogenic mushrooms use disorder, severe Current Visit: Yes Status: Acute Priority: High (6) Nicotine dependence Current Visit: Yes Status: Acute Priority: Low Hospital Course: Admission HPI: Admission note was completed by contract writer "Patient is a 47 yo male with a previous diagnosis of schizophrenia and comorbid substance use disorder: psychedelics, alcohol, homeless. Patient was seen yesterday in the ER and was found to be bizarre and psychotic, he apparently threatened to harm someone at [facility] accoridng to ED note. Patient has a long hx of several psychiatric inpatient admissions in the past, hx of schizoaffective disorder and polysubtance use, homelessness. He was admitted to the [facility] last night. Petition states that "Harpreet was walking out of [facility] when this contract writer was entering and Harpreet stated you are bina I don't scalp you right now" and pulled a pair of scissors out of his back pocket. Harpreet was presenting as floridly psychotic". Patient appeared to have a disheveled appearance, he was lying in bed and sleeping. Patient was awoken briefly by contract writer however had his eyes closed. She was fairly uncooperative, irritable and states that "I don't want to talk right now thanks". He was asked about the reason why he came to the hospital he states that "I don't want to give me those details". When asked more about his medications and his treatment at [facility] patient continued to refuse to answer. He states that "if you give me anything besides Zyprexa I'll file a lawsuit against you". At this time he is denying any auditory or visual hallucinations denying any suicidal or homicidal ideations intent or plan." Hospital course: Upon admission to the unit patient was admitted involuntarily on a petition and certificate and a second certificate was completed and faxed with the courts. patient initially deferred however due to non compliance a demand was filed and patient attended court hearing and consented to the mental health treatment order. Patient got along well with other patients on the unit and followed unit protocol. Patient was compliant with the medications and denied any side effects throughout hospital course. Patient was started on Zyprexa and increased her dose of 15 mg daily at bedtime for sleep/psychosis/mood. Patient also was resumed back on Prolixin D 50 mg IM every 14 days, last dose was given on the unit on 04/12 at next dose will be due as an outpatient on 04/26. Patient spoke of his stressors however he did not attend many groups. Patient was also seen by medical team for history and physical exam. Throughout the course of the hospitalization patient gradually improved with regards to mood, anxiety, psychosis, delusions, sleep and returned back to their baseline level of functioning. On the day of discharge patient denied any suicidal or homicidal ideations intent or plan denied any auditory or visual hallucinations. Patient endorsed wanting to live for his future and to get back on his medications. The patient denied any access to guns or weapons. Patient denied any paranoia and did not endorse any delusions. Patient does have a significant history of substance abuse and was counseled on abstaining from all substances including alcohol and marijuana. Patient was offered however declined inpatient substance- abuse rehab. Patient did elect to go to [facility] upon discharge instead of back to his apartment. Patient was also counseled on the medications and need for regular compliance and was encouraged to follow-up with their outpatient appointment for mental health and also for primary care. Patient will be followed closely by the act team. Mental status exam: General Appearance: Patient appears to be thin, has a jay, stated age is alert, pleasant, and cooperative. Patient is in no acute distress and has improved hygiene and grooming Behavior: Patient is calmly seated without any agitated behavior. Speech: Patient's speech is fluent and nonpressured. Mood/Affect: Patient reports their mood is "good", affect is congruent Suicidality/Homicidality: Patient denies having any suicidal or homicidal ideation intent or plan. Perceptions: Patient denies any auditory or visual hallucinations. Though content/process: There is no evidence of any delusional thought content and thought process is linear and goal-directed. Memory and concentration: AOX3, grossly intact for the purposes of this session. Can spell "WORLD" backwards correctly. Judgment and insight: chronically poor, however has improved with guarded prognosis Impression: Schizoaffective disorder bipolar type Hallucinogenic mushrooms use disorder severe Cannabis use disorder severe Amphetamine type substance use disorder severe Cocaine use disorder Nicotine dependence Plan: -Continue with discharge today as patient has improved and stabilized psych iatrically and is not currently an imminent threat to himself and/or others. Patient will remain at chronically elevated risk for harm to self and/or others due to his impulsivity and polysubstance abuse. -Continue medications: Zyprexa 15 mg daily at bedtime for sleep/psychosis/mood, Prolixin D 50 mg IM every 14 days, last dose was given on 04/12 and next dose will be due on 04/26. -Patient was counseled on the need for medication compliance and appropriate follow-up at mental health and also primary care for medical issues. Patient verbalized understanding and agreed. -Social work to erick Garcia patient's discharge today to [facility], patient also be followed closely by act team. Social work also to arrange for patients follow up appointments with [facility] for psychiatric care along with follow up with primary care provider. -Patient counseled on abstaining from recreational drugs and marijuana and alcohol. Was informed/educated on the adverse effects on their physical and mental health. Patient verbally agreed and understood. -Patient was instructed to return to the hospital or seek immediate medical care if their psychiatric or medical symptoms do worsen or reoccur. Allergies Allergy/AdvReac Type Severity Reaction Status Date / Time cat dander Allergy Itching Verified 04/09/23 11:54 banana AdvReac Nausea Verified 04/09/23 11:54 oxcarbazepine AdvReac seizures Verified 04/09/23 11:54 [From Trileptal] paliperidone [From Invega] AdvReac delusional Verified 04/09/23 11:54 risperidone [From Risperdal] AdvReac seizures Verified 04/09/23 11:54 Laboratory Results Urine Opiates Screen Not Detected (NotDetected) 04/09/23 15:34 Ur Oxycodone Screen Not Detected (NotDetected) 04/09/23 15:34 Urine Methadone Screen Not Detected (NotDetected) 04/09/23 15:34 Ur Propoxyphene Screen Not Detected (NotDetected) 04/09/23 15:34 Ur Barbiturates Screen Not Detected (NotDetected) 04/09/23 15:34 U Tricyclic Antidepress Not Detected (NotDetected) 04/09/23 15:34 Ur Phencyclidine Scrn Not Detected (NotDetected) 04/09/23 15:34 Ur Amphetamines Screen Detected (NotDetected) H 04/09/23 15:34 U Methamphetamines Scrn Detected (NotDetected) H 04/09/23 15:34 U Benzodiazepines Scrn Not Detected (NotDetected) 04/09/23 15:34 Urine Cocaine Screen Detected (NotDetected) H 04/09/23 15:34 U Marijuana (THC) Screen Detected (NotDetected) H 04/09/23 15:34 Coronavirus (PCR) Not Detected (Not Detectd) 04/09/23 15:34 Vital Signs Temp 97.9 F 04/19/23 05:00 Pulse 91 04/19/23 05:00 Resp 17 04/19/23 05:00 BP 137/98 04/19/23 05:00 Pulse Ox 96 04/19/23 05:00 FiO2 Intake & Output 04/21/23 04/22/23 04/22/23 18:59 06:59 18:59 Weight 64.5 kg Patient Condition at Discharge: Stable Plan - Discharge Summary Discharge Rx Participant: No New Discharge Prescriptions: New Nicotine 14Mg/24Hr Patch [Habitrol] 1 patch TRANSDERM DAILY 14 Days #14 patch Famotidine [Pepcid] 20 mg PO BID 30 Days #60 tab fluPHENAZine decanoate [Prolixin Decanoate] 50 mg IM Q14D #1 ml Pantoprazole [Protonix] 40 mg PO AC-BRKFST 30 Days #30 tab Nicotine Gum (Polacrilex) [Nicorette] 2 mg BUCCAL Q4HR PRN 30 Days #180 pieceofgum PRN Reason: Nicotine Cravings OLANZapine [ZyPREXA] 15 mg PO HS 30 Days #30 tablet Continue Albuterol Sulfate [Ventolin HFA] 2 puff INHALATION RT-Q6H PRN PRN Reason: Shortness Of Breath Discontinued fluPHENAZine decanoate [Prolixin Decanoate] 50 mg IM Q14D 1 Days #1 ml Omeprazole [PriLOSEC] 40 mg PO DAILY OLANZapine 10 mg PO HS Discharge Medication List Albuterol Sulfate [Ventolin HFA] 2 puff INHALATION RT-Q6H PRN 01/22/23 [History] Famotidine [Pepcid] 20 mg PO BID 30 Days #60 tab 04/22/23 [Rx] Nicotine 14Mg/24Hr Patch [Habitrol] 1 patch TRANSDERM DAILY 14 Days #14 patch 04/22/23 [Rx] Nicotine Gum (Polacrilex) [Nicorette] 2 mg BUCCAL Q4HR PRN 30 Days #180 pieceofgum 04/22/23 [Rx] OLANZapine [ZyPREXA] 15 mg PO HS 30 Days #30 tablet 04/22/23 [Rx] Pantoprazole [Protonix] 40 mg PO AC-BRKFST 30 Days #30 tab 04/22/23 [Rx] fluPHENAZine decanoate [Prolixin Decanoate] 50 mg IM Q14D #1 ml 04/22/23 [Rx] Follow up Appointment(s)/Referral(s): [facility] [Outside] - 04/29/23 1:00 pm (04/29/2023 1:00PM - 1:30PM ANTONIA HUMPHREYS ) [facility] [Primary Care Provider] - 1-2 days Patient Instructions/Handouts: Schizoaffective Disorder (DC), Polysubstance Abuse (ED) Activity/Diet/Wound Care/Special Instructions: Avoid the use of street drugs and alcohol. Take all medications as prescribed. When you are in need of refills on your medications, please contact your medical provider and/or outpatient psychiatrist/provider to have this done. Please go to your scheduled outpatient appointment for aftercare treatment. If symptoms return or become worse, call the crisis line at and/or go to the nearest emergency room for evaluation. National Suicide Hotline 988. Discharge Disposition: OTHER INSTITUTION NOT DEFINED
[2023-04-26] MEDS ORDERED: fluPHENAZine DECANOATE 25 MG/ML 5ML MDV IM SCH (10:30)
== END 2023-04-22 13:20 | disposition home or self-care (01) | DRG 885 ==
LOC: EC 11:09 → 3MHU 18:37
PROVIDERS: ADMIT Psychiatry & Neurology Psychiatry; ATTEND Psychiatry & Neurology Psychiatry
DX: F25.0 Schizoaffective disorder, bipolar type (principal); F15.20 Other stimulant dependence, uncomplicated; F16.10 Hallucinogen abuse, uncomplicated; F17.210 Nicotine dependence, cigarettes, uncomplicated; F14.10 Cocaine abuse, uncomplicated; G40.909 Epilepsy, unspecified, not intractable, without status epilepticus; K21.9 Gastro-esophageal reflux disease without esophagitis; F12.20 Cannabis dependence, uncomplicated; M41.9 Scoliosis, unspecified; K44.9 Diaphragmatic hernia without obstruction or gangrene; G43.909 Migraine, unspecified, not intractable, without status migrainosus; Z86.19 Personal history of other infectious and parasitic diseases; Z91.199 Patient's noncompliance with other medical treatment and regimen due to unspecified reason; Z71.51 Drug abuse counseling and surveillance of drug abuser; Z71.89 Other specified counseling; Z28.310 Unvaccinated for COVID-19; Z28.21 Immunization not carried out because of patient refusal; Z71.3 Dietary counseling and surveillance; Z59.00 Homelessness unspecified; Z79.899 Other long term (current) drug therapy; Z88.8 Allergy status to other drugs, medicaments and biological substances
CPT/HCPCS: 80306; 82075; 87635; 99285

== ENCOUNTER 2023-06-23 19:17 | Emergency (ER) | payer MEDICARE, MEDICAID ==
[2023-06-23 19:50] VITALS: BP 120/86; PULSE 118; RESP 20; TEMP 98.9
--- NOTE | 2023-06-23 20:36 | ED ---
Psych HPI - General Chief Complaint: Psychiatric Symptoms Stated Complaint: abd pain Time Seen by Provider: 06/23/23 19:45 Source: patient Mode of arrival: ambulatory - History of Present Illness Initial Comments: 47-year-old male presenting with for mental health evaluation. The patient tells me "I just noticed some people", states that he cannot tell me who these people are because it is a personal matter. He denies any thoughts of wanting to harm himself or others. Patient is avoiding eye contact. He states that sometimes he has abdominal pain that flares up, does not have any pain at this time. No other complaints. - Related Data Home Medications Medication Instructions Recorded Confirmed Albuterol Sulfate [Ventolin HFA] 2 puff INHALATION RT-Q6H PRN 01/22/23 04/09/23 Previous Rx's Medication Instructions Recorded Famotidine [Pepcid] 20 mg PO BID 30 Days #60 tab 04/22/23 Nicotine 14Mg/24Hr Patch [Habitrol] 1 patch TRANSDERM DAILY 14 Days 04/22/23 #14 patch Nicotine Gum (Polacrilex) 2 mg BUCCAL Q4HR PRN 30 Days #180 04/22/23 [Nicorette] pieceofgum OLANZapine [ZyPREXA] 15 mg PO HS 30 Days #30 tablet 04/22/23 Pantoprazole [Protonix] 40 mg PO AC-BRKFST 30 Days #30 tab 04/22/23 fluPHENAZine decanoate [Prolixin 50 mg IM Q14D #1 ml 04/22/23 Decanoate] Allergies Allergy/AdvReac Type Severity Reaction Status Date / Time cat dander Allergy Itching Verified 05/21/23 20:12 banana AdvReac Nausea Verified 05/21/23 20:12 oxcarbazepine AdvReac seizures Verified 05/21/23 20:12 [From Trileptal] paliperidone [From Invega] AdvReac delusional Verified 05/21/23 20:12 risperidone [From Risperdal] AdvReac seizures Verified 05/21/23 20:12 Review of Systems ROS Statement: Those systems with pertinent positive or pertinent negative responses have been documented in the HPI. ROS Other: All systems not noted in ROS Statement are negative. Past Medical History Past Medical History: GERD/Reflux, Musculoskeletal Disorder, Seizure Disorder Additional Past Medical History / Comment(s): scoliosis, herpes, hiatal hernia, migraines, Hepatitis C History of Any Multi-Drug Resistant Organisms: None Reported Past Surgical History: No Surgical Hx Reported Additional Past Surgical History / Comment(s): EGD Past Anesthesia/Blood Transfusion Reactions: No Reported Reaction Past Psychological History: Anxiety, Bipolar, Depression, Schizoaffective Disorder Smoking Status: Current every day smoker Past Alcohol Use History: Daily Past Drug Use History: Cocaine, Marijuana - Past Family History Mother History Unknown: Yes Additional Family Medical History / Comment(s): from suicide attempt Father History Unknown: Yes Additional Family Medical History / Comment(s): Reports that he is currently in the stages of dying- but wont clarify further. Inititally the patient stated his father was . General Exam Limitations: no limitations General appearance: alert, in no apparent distress Head exam: Present: atraumatic, normocephalic, normal inspection Eye exam: Present: normal appearance, EOMI Neck exam: Present: normal inspection, full ROM Respiratory exam: Present: normal lung sounds bilaterally. Absent: respiratory distress, wheezes, rales, rhonchi, stridor Cardiovascular Exam: Present: regular rate, normal rhythm, normal heart sounds. Absent: systolic murmur, diastolic murmur, rubs, gallop, clicks Neurological exam: Present: alert, oriented X3 Psychiatric exam: Present: flat affect Expanded Focused psych exam: Present: delusional Skin exam: Present: warm, dry, intact, normal color. Absent: rash Course Vital Signs 06/23/23 19:40 Temperature 98.9 F Pulse Rate 118 H Respiratory 20 Rate Blood Pressure 120/86 O2 Sat by Pulse 98 Oximetry Medical Decision Making - Medical Decision Making Was pt. sent in by a medical professional or institution (, PA, YARN MAN, urgent care, hospital, or senior care...) When possible be specific @ -No Did you speak to anyone other than the patient for history (EMS, parent, family, police, friend...)? What history was obtained from this source @ -No Did you review nursing and triage notes (agree or disagree)? Why? @ -I reviewed and agree with nursing and triage notes Were old charts reviewed (outside hosp., previous admission, EMS record, old EKG, old radiological studies, urgent care reports/EKG's, senior care records)? Report findings @ -No old charts were reviewed Differential Diagnosis (chest pain, altered mental status, abdominal pain women, abdominal pain men, vaginal bleeding, weakness, fever, dyspnea, syncope, headache, dizziness, GI bleed, back pain, seizure, CVA, palpatations, mental he alth, musculoskeletal)? @ -Differential Mental Health Depression, anxiety, bipolar, psychosis, schizophrenia, borderline personality, situational depression, adjustment disorder, behavioral disorder, brain tumor, malingering, substance abuse, encephalopathy, medication reaction, dementia, hypothyroidism, degenerative neurologic disorder, lupus.... This is not meant to be all-inclusive list EKG interpreted by me (3pts min.). @ -As above X-rays interpreted by me (1pt min.). @ -None done CT interpreted by me (1pt min.). @ -None done U/S interpreted by me (1pt. min.). @ -None done What testing was considered but not performed or refused? (CT, X-rays, U/S, labs)? Why? @ -None What meds were considered but not given or refused? Why? @ -None Did you discuss the management of the patient with other professionals (professionals i.e. , PA, YARN MAN, lab, RT, psych nurse, forensic social worker, torch straightener, teacher, weapons officer naval activity, correctional case records supervisor)? Give summary @ -I spoke with Kelsea CHAPA nurse who states that the patient will be discharged home with a safety plan Was smoking cessation discussed for >3mins.? @ -No Was critical care preformed (if so, how long)? @ -No Were there social determinants of health that impacted care today? How? (Homelessness, low income, unemployed, alcoholism, drug addiction, transportation, low edu. Level, literacy, decrease access to med. care, usp, rehab)? @ -No Was there de-escalation of care discussed even if they declined (Discuss DNR or withdrawal of care, Hospice)? DNR status @ -No What co-morbidities impacted this encounter? (DM, HTN, Smoking, COPD, CAD, Cancer, CVA, ARF, Chemo, Hep., AIDS, mental health diagnosis, sleep apnea, morbid obesity)? @ -None Was patient admitted / discharged? Hospital course, mention meds given and route, prescriptions, significant lab abnormalities, going to OR and other pertinent info. @ -47-year-old male presenting for psychiatric evaluation. Physical exam is conducted. Urine drug screen is positive for amphetamines, methamphetamines, cocaine, marijuana. He is evaluated by EPS. They determined that the patient can be discharged home with safety plan. Follow-up with PCP. Report back to ER with any new or worsening symptoms. Discussed return parameters and answered all questions. Patient conveyed verbal understanding and agreed to the plan. I discussed this case in detail with my attending Dr. Abebe Undiagnosed new problem with uncertain prognosis? @ -No Drug Therapy requiring intensive monitoring for toxicity (Heparin, Nitro, Insulin, Cardizem)? @ -No Were any procedures done? @ -No Diagnosis/symptom? @ -Polysubstance abuse Acute, or Chronic, or Acute on Chronic? @ -Acute Uncomplicated (without systemic symptoms) or Complicated (systemic symptoms)? @ -Uncomplicated Side effects of treatment? @ -No Exacerbation, Progression, or Severe Exacerbation? @ -No Poses a threat to life or bodily function? How? (Chest pain, USA, LA, pneumonia, PE, COPD, DKA, ARF, appy, cholecystitis, CVA, Diverticulitis, Homicidal, Suicidal, threat to staff... and all critical care pts) @ -No - Lab Data Lab Results 06/23/23 Range/Units 21:00 Urine Color Yellow Urine Appearance Clear (Clear) Urine pH 6.0 (5.0-8.0) Ur Specific [place] 1.028 (1.001-1.035) Urine Protein Trace H (Negative) Urine Glucose (UA) Negative (Negative) Urine Ketones Negative (Negative) Urine Blood Negative (Negative) Urine Nitrite Negative (Negative) Urine Bilirubin Negative (Negative) Urine Urobilinogen 3.0 (<2.0) mg/dL Ur Leukocyte Esterase Negative (Negative) Urine Opiates Screen Not Detected (NotDetected) Ur Oxycodone Screen Not Detected (NotDetected) Urine Methadone Screen Not Detected (NotDetected) Ur Propoxyphene Screen Not Detected (NotDetected) Ur Barbiturates Screen Not Detected (NotDetected) U Tricyclic Antidepress Not Detected (NotDetected) Ur Phencyclidine Scrn Not Detected (NotDetected) Ur Amphetamines Screen Detected H (NotDetected) U Methamphetamines Scrn Detected H (NotDetected) U Benzodiazepines Scrn Not Detected (NotDetected) Urine Cocaine Screen Detected H (NotDetected) U Marijuana (THC) Screen Detected H (NotDetected) Disposition Clinical Impression: Polysubstance abuse Disposition: HOME SELF-CARE Condition: Fair Instructions (If sedation given, give patient instructions): Polysubstance Abuse (ED) Additional Instructions: Follow-up with PCP. Report back to ER with any new or worsening symptoms. Follow safety plan. Is patient prescribed a controlled substance at d/c from ED?: No Referrals: [facility] [Primary Care Provider] - 1-2 days Time of Disposition: 22:10
[2023-06-23 21:22] LABS: Appearance,Urine Clear (Clear); Bilirubin,Urine Negative (Negative); Blood,Urine Negative (Negative); Color,Urine Yellow; Glucose,Urine (UA) Negative (Negative); Ketones,Urine Negative (Negative); Leukocyte Esterase,Urine Negative (Negative); Nitrite,Urine Negative (Negative); Protein,Urine Trace (Negative); Specific Gravity,Urine 1.028 (1.001-1.035)
[2023-06-23 21:28] LABS: Amphetamine Screen,Urine Detected (NotDetected); Cocaine Screen,Urine Detected (NotDetected); Opiate Screen,Urine Not Detected (NotDetected); Phencyclidine Screen,Urine Not Detected (NotDetected); Urn Cannabinoid Scrn Detected (NotDetected)
[2023-06-23 21:29] LABS: Barbiturate Screen,Urine Not Detected (NotDetected); Benzodiazepines Screen,Urine Not Detected (NotDetected); Methadone Screen, Urine Not Detected (NotDetected); Oxycodone Screen, Urine Not Detected (NotDetected); Tricyclic Antidepressant,Urine Not Detected (NotDetected)
== END 2023-06-23 22:21 | disposition home or self-care (01) ==
LOC: EC 19:17
DX: F19.10 Other psychoactive substance abuse, uncomplicated (principal); F17.200 Nicotine dependence, unspecified, uncomplicated; F12.90 Cannabis use, unspecified, uncomplicated; Z86.59 Personal history of other mental and behavioral disorders; Z91.018 Allergy to other foods; Z88.8 Allergy status to other drugs, medicaments and biological substances; Z91.09 Other allergy status, other than to drugs and biological substances
CPT/HCPCS: 80306; 81003; 82075; 99285

== ENCOUNTER 2024-01-12 11:30 | Emergency (ER) | payer MEDICARE, MEDICAID ==
[2024-01-12 11:43] VITALS: RESP 18
--- NOTE | 2024-01-12 11:49 | ED ---
ENT HPI - General Chief complaint: ENT Stated complaint: sore nose Time Seen by Provider: 01/12/24 11:43 Source: patient, RN notes reviewed Mode of arrival: ambulatory Limitations: no limitations - History of Present Illness Initial comments: This is a 48-year-old male presents emergency department chief complaint of external nasal pain and scabbing over the last 2 weeks. Patient is also been experiencing rhinorrhea that is clear and runny. States that he has not used any medications to alleviate symptoms. The patient's with a lot of time outside therefore believes that he has been experiencing a dry and cracking nose due to increased sun exposure. He denies cough, congestion, headaches, dental pain, body aches, fevers or chills, nausea, vomiting, earaches or fullness. He also denies chest pain or palpitations, dizziness, lightheadedness. - Related Data Home Medications Medication Instructions Recorded Confirmed Divalproex Sodium [Depakote] 500 mg PO BID 01/08/24 01/08/24 OLANZapine [ZyPREXA] 20 mg PO HS 01/08/24 01/08/24 Omeprazole [PriLOSEC] 40 mg PO DAILY 01/08/24 01/08/24 haloperidoL [Haldol] 5 mg PO DAILY 01/08/24 01/08/24 Previous Rx's Medication Instructions Recorded Fluticasone Nasal [address] [Flonase 2 spr EA NOSTRIL DAILY #16 gm 01/12/[address]] Loratadine-Pseudoeph 5-120 mg 1 tab PO Q12HR #14 tab 01/12/24 [Claritin-D 12 Hour] Mupirocin [Bactroban Nasal 1 applic TOPICAL AC-BID 10 Days #1 01/12/24 Ointment 2% (with applicator)] gm Allergies Allergy/AdvReac Type Severity Reaction Status Date / Time cat dander Allergy Itching Verified 01/12/24 11:34 banana AdvReac Nausea Verified 01/12/24 11:34 oxcarbazepine AdvReac seizures Verified 01/12/24 11:34 [From Trileptal] paliperidone [From Invega] AdvReac delusional Verified 01/12/24 11:34 risperidone [From Risperdal] AdvReac seizures Verified 01/12/24 11:34 Review of Systems ROS Statement: Those systems with pertinent positive or pertinent negative responses have been documented in the HPI. ROS Other: All systems not noted in ROS Statement are negative. Past Medical History Past Medical History: GERD/Reflux, Musculoskeletal Disorder, Seizure Disorder Additional Past Medical History / Comment(s): scoliosis, herpes, hiatal hernia, migraines, Hepatitis C History of Any Multi-Drug Resistant Organisms: None Reported Past Surgical History: No Surgical Hx Reported Additional Past Surgical History / Comment(s): EGD Past Anesthesia/Blood Transfusion Reactions: No Reported Reaction Past Psychological History: Anxiety, Bipolar, Depression, Schizoaffective Dis order Smoking Status: Current every day smoker Past Alcohol Use History: Daily Past Drug Use History: Cocaine, Marijuana - Past Family History Mother History Unknown: Yes Additional Family Medical History / Comment(s): from suicide attempt Father History Unknown: Yes Additional Family Medical History / Comment(s): Reports that he is currently in the stages of dying- but wont clarify further. Inititally the patient stated his father was . General Exam Limitations: no limitations General appearance: alert, in no apparent distress Head exam: Present: atraumatic, normocephalic, normal inspection Eye exam: Present: normal appearance, PERRL, EOMI. Absent: scleral icterus, conjunctival injection, periorbital swelling ENT exam: Present: other (External nasal inspection dry and flaking skin. Bilateral nares boggy nasal dane and clear rhinorrhea evident ) Expanded TM/Canal exam: Cerumen Impaction: Right TM, Left TM Neck exam: Present: normal inspection. Absent: tenderness, meningismus, lymphadenopathy Respiratory exam: Present: normal lung sounds bilaterally. Absent: respiratory distress, wheezes, rales, rhonchi, stridor Cardiovascular Exam: Present: regular rate, normal rhythm, normal heart sounds. Absent: systolic murmur, diastolic murmur, rubs, gallop, clicks GI/Abdominal exam: Present: soft, normal bowel sounds. Absent: distended, tenderness, guarding, rebound, rigid Extremities exam: Present: normal inspection, full ROM, normal capillary refill. Absent: tenderness, pedal edema, joint swelling, calf tenderness Back exam: Present: normal inspection Neurological exam: Present: alert, oriented X3, CN II-XII intact Psychiatric exam: Present: normal affect, normal mood Skin exam: Present: warm, dry, intact, normal color. Absent: rash Course Vital Signs 01/12/24 11:32 Temperature 98.4 F Pulse Rate 92 Respiratory 18 Rate Blood Pressure 106/74 O2 Sat by Pulse 99 Oximetry Medical Decision Making - Medical Decision Making Was pt. sent in by a medical professional or institution (LEO Regan, RADIO INTERFERENCE SUPERVISOR, urgent care, hospital, or jail...) When possible be specific @ -No Did you speak to anyone other than the patient for history (EMS, parent, family, police, friend...)? What history was obtained from this source @ -No Did you review nursing and triage notes (agree or disagree)? Why? @ -I reviewed and agree with nursing and triage notes Were old charts reviewed (outside hosp., previous admission, EMS record, old EKG, old radiological studies, urgent care reports/EKG's, jail records)? Report findings @ -No old charts were reviewed Differential Diagnosis (chest pain, altered mental status, abdominal pain women, abdominal pain men, vaginal bleeding, weakness, fever, dyspnea, syncope, headache, dizziness, GI bleed, back pain, seizure, CVA, palpatations, mental health, musculoskeletal)? @ -Rhinorrhea, viral rhinosinusitis, allergic rhinosinusitis, increased sun exposure, dry skin, this list is not all inclusive EKG interpreted by me (3pts min.). @ -None X-rays interpreted by me (1pt min.). @ -None done CT interpreted by me (1pt min.). @ -None done U/S interpreted by me (1pt. min.). @ -None done What testing was considered but not performed or refused? (CT, X-rays, U/S, labs)? Why? @ -None What meds were considered but not given or refused? Why? @ -None Did you discuss the management of the patient with other professionals (professionals i.e. LEO Regan, RADIO INTERFERENCE SUPERVISOR, lab, RT, psych nurse, social service director, biomedical engineering internship, teacher, electoral officer, counter caser)? Give summary @ -No Was smoking cessation discussed for >3mins.? @ -No Was critical care preformed (if so, how long)? @ -No Were there social determinants of health that impacted care today? How? (Homelessness, low income, unemployed, alcoholism, drug addiction, transportation, low edu. Level, literacy, decrease access to med. care, detention, rehab)? @ -No Was there de-escalation of care discussed even if they declined (Discuss DNR or withdrawal of care, Hospice)? DNR status @ -No What co-morbidities impacted this encounter? (DM, HTN, Smoking, COPD, CAD, Cancer, CVA, ARF, Chemo, Hep., AIDS, mental health diagnosis, sleep apnea, morbid obesity)? @ -None Was patient admitted / discharged? Hospital course, mention meds given and route, prescriptions, significant lab abnormalities, going to OR and other pertinent info. @ -Discharged. 48-year-old male with complaint of rhinorrhea and nasal pain. On examination patient noted to have bilateral clear rhinorrhea in addition to boggy nasal conscious. Additionally patient's external nasal inspection noted to have dry skin. Patient will be given oral Claritin-D medication and topical antibiotic cream will be applied to the nares. Patient will be discharged home with allergy medication, Flonase spray, and topical antibiotic cream to apply to the nose. Patient is agreement with plan. Further testing and imaging was deferred at this time due to patient's physical examination with benign findings. Patient is in agreement with this plan. Case discussed with Dr. Vasquez Undiagnosed new problem with uncertain prognosis? @ -No Drug Therapy requiring intensive monitoring for toxicity (Heparin, Nitro, Insulin, Cardizem)? @ -No Were any procedures done? @ -No Diagnosis/symptom? @ -Rhinorrhea, rhinosinusitis Acute, or Chronic, or Acute on Chronic? @ -Acute Uncomplicated (without systemic symptoms) or Complicated (systemic symptoms)? @ -Uncomplicated Side effects of treatment? @ -No Exacerbation, Progression, or Severe Exacerbation? @ -No Poses a threat to life or bodily function? How? (Chest pain, [place], [place], pneumonia, PE, COPD, DKA, ARF, appy, cholecystitis, CVA, Diverticulitis, Homicidal, Suicidal, threat to staff... and all critical care pts) @ -No Disposition Clinical Impression: Rhinorrhea, Sore nose Narrative: Please return to the Emergency Department if symptoms worsen or any other concerns. Disposition: HOME SELF-CARE Condition: Good Instructions (If sedation given, give patient instructions): Allergic Rhinitis (ED) Prescriptions: Mupirocin [Bactroban Nasal Ointment 2% (with applicator)] 1 applic TOPICAL AC- BID 10 Days #1 gm Loratadine-Pseudoeph 5-120 mg [Claritin-D 12 Hour] 1 tab PO Q12HR #[address] [Flonase Nasal [address]] 2 spr EA NOSTRIL DAILY #16 gm Is patient prescribed a controlled substance at d/c from ED?: No Referrals: [facility] [Primary Care Provider] - 1-2 days Time of Disposition: 12:11
[2024-01-12] MEDS: MUPIROCIN 2% OINT 22 GM TUBE TOPICAL ONE (12:29)
[2024-01-12] MEDS: LORATADINE-PSEUDOEPH 5-120 MG 1 EACH TAB.ER.12H PO ONE (12:29)
[2024-01-12 13:02] VITALS: BP 136/88; PULSE 75; TEMP 97.7
== END 2024-01-12 12:40 | disposition home or self-care (01) ==
LOC: EC 11:30
DX: J34.89 Other specified disorders of nose and nasal sinuses (principal); J32.9 Chronic sinusitis, unspecified; F17.200 Nicotine dependence, unspecified, uncomplicated; Z88.8 Allergy status to other drugs, medicaments and biological substances
CPT/HCPCS: 99283

== ENCOUNTER 2024-05-10 18:05 | Emergency (ER) | payer MEDICAID, MEDICARE ==
[2024-05-10 18:10] VITALS: BP 111/80; PULSE 87; RESP 20; TEMP 97.6
--- NOTE | 2024-05-10 19:14 | ED ---
Recheck HPI - General Chief Complaint: Recheck/Abnormal Lab/Rx Stated Complaint: dehydration Time Seen by Provider: 05/10/24 18:30 Source: patient, RN notes reviewed Mode of arrival: ambulatory Limitations: no limitations - History of Present Illness Initial Comments: 48-year-old male presenting for "dehydration". States he has been dealing with intermittent abdominal pain and dehydration for several years. States he is not currently in any pain. Tolerating orals well. Denies fever, chills, vomiting. He does have a history of mental health issues including schizophrenia however denies suicidal or homicidal ideation. - Related Data Home Medications Medication Instructions Recorded Confirmed No Known Home Medications 05/10/24 05/10/24 Allergies Allergy/AdvReac Type Severity Reaction Status Date / Time cat dander Allergy Itching Verified 05/10/24 18:34 banana AdvReac Nausea Verified 05/10/24 18:34 oxcarbazepine AdvReac seizures Verified 05/10/24 18:34 [From Trileptal] paliperidone [From Invega] AdvReac delusional Verified 05/10/24 18:34 risperidone [From Risperdal] AdvReac seizures Verified 05/10/24 18:34 Review of Systems ROS Statement: Those systems with pertinent positive or pertinent negative responses have been documented in the HPI. ROS Other: All systems not noted in ROS Statement are negative. Past Medical History Past Medical History: GERD/Reflux, Musculoskeletal Disorder, Seizure Disorder Additional Past Medical History / Comment(s): scoliosis, herpes, hiatal hernia, migraines, Hepatitis C History of Any Multi-Drug Resistant Organisms: None Reported Past Surgical History: No Surgical Hx Reported Additional Past Surgical History / Comment(s): EGD Past Anesthesia/Blood Transfusion Reactions: No Reported Reaction Past Psychological History: Anxiety, Bipolar, Depression, Schizoaffective Disorder Smoking Status: Current every day smoker Past Alcohol Use History: Daily Past Drug Use History: Cocaine, Marijuana, Methamphetamine - Past Family History Mother History Unknown: Yes Additional Family Medical History / Comment(s): from suicide attempt Father History Unknown: Yes Additional Family Medical History / Comment(s): Reports that he is currently in the stages of dying- but wont clarify further. Inititally the patient stated his father was . General Exam Limitations: no limitations General appearance: alert, in no apparent distress Head exam: Present: atraumatic, normocephalic, normal inspection Respiratory exam: Present: normal lung sounds bilaterally. Absent: respiratory distress, wheezes, rales, rhonchi, stridor Cardiovascular Exam: Present: regular rate, normal rhythm, normal heart sounds. Absent: systolic murmur, diastolic murmur, rubs, gallop, clicks GI/Abdominal exam: Present: soft, normal bowel sounds. Absent: distended, tenderness, guarding, rebound, rigid Neurological exam: Present: alert, oriented X3 Psychiatric exam: Present: normal affect, normal mood. Absent: homicidal ideation, suicidal ideation Skin exam: Present: warm, dry, intact, normal color. Absent: rash Course Vital Signs 05/10/24 18:08 Temperature 97.6 F Pulse Rate 87 Respiratory 20 Rate Blood Pressure 111/80 O2 Sat by Pulse 97 Oximetry Medical Decision Making - Medical Decision Making Was pt. sent in by a medical professional or institution (, PA, CIVIL LABORATORY TECHNICIAN, urgent care, hospital, or fpc...) When possible be specific @ -No Did you speak to anyone other than the patient for history (EMS, parent, family, police, friend...)? What history was obtained from this source @ -No Did you review nursing and triage notes (agree or disagree)? Why? @ -I reviewed and agree with nursing and triage notes Were old charts reviewed (outside hosp., previous admission, EMS record, old EKG, old radiological studies, urgent care reports/EKG's, fpc records)? Report findings @ -No old charts were reviewed Differential Diagnosis (chest pain, altered mental status, abdominal pain women, abdominal pain men, vaginal bleeding, weakness, fever, dyspnea, syncope, headache, dizziness, GI bleed, back pain, seizure, CVA, palpatations, mental health, musculoskeletal)? @ -Differential Abdominal Pain Men: Appendicitis, cholecystitis, diverticulosis, ischemic bowel, pancreatitis, hepatitis, UTI, gastroenteritis, AAA, incarcerated hernia, bowel obstruction, constipation, inflammatory bowel, hepatitis, peptic ulcer disease, splenic infarction, perforated viscus, testicular torsion, this is not meant to be an all-inclusive list EKG interpreted by me (3pts min.). @ -None X-rays interpreted by me (1pt min.). @ -None done CT interpreted by me (1pt min.). @ -None done U/S interpreted by me (1pt. min.). @ -None done What testing was considered but not performed or refused? (CT, X-rays, U/S, labs)? Why? @ -Lab work and urinalysis not obtained due to patient left AMA before workup was complete What meds were considered but not given or refused? Why? @ -IV fluids not given due to patient left AMA Did you discuss the management of the patient with other professionals (melina ribeiro i.e. , PA, CIVIL LABORATORY TECHNICIAN, lab, RT, psych nurse, social science manager, edge stainer machine, teacher, placement officer, case manager specialist)? Give summary @ -No Was smoking cessation discussed for >3mins.? @ -No Was critical care preformed (if so, how long)? @ -No Were there social determinants of health that impacted care today? How? (Homelessness, low income, unemployed, alcoholism, drug addiction, transportation, low edu. Level, literacy, decrease access to med. care, long-term, rehab)? @ -No Was there de-escalation of care discussed even if they declined (Discuss DNR or withdrawal of care, Hospice)? DNR status @ -No What co-morbidities impacted this encounter? (DM, HTN, Smoking, COPD, CAD, Cancer, CVA, ARF, Chemo, Hep., AIDS, mental health diagnosis, sleep apnea, morbid obesity)? @ -None Was patient admitted / discharged? Hospital course, mention meds given and route, prescriptions, significant lab abnormalities, going to OR and other pertinent info. @ -Patient left AMA. This is a 48-year-old male presenting for abdominal pain that he reports has been ongoing for several years. He is not currently having any pain. Patient left AMA before workup was complete. Case discussed with my ED attending Dr. Abebe. Undiagnosed new problem with uncertain prognosis? @ -No Drug Therapy requiring intensive monitoring for toxicity (Heparin, Nitro, Insulin, Cardizem)? @ -No Were any procedures done? @ -No Diagnosis/symptom? @ -Abdominal pain Acute, or Chronic, or Acute on Chronic? @ -Chronic Uncomplicated (without systemic symptoms) or Complicated (systemic symptoms)? @ -Uncomplicated Side effects of treatment? @ -No Exacerbation, Progression, or Severe Exacerbation? @ -No Poses a threat to life or bodily function? How? (Chest pain, USA, [place], pneumonia, PE, COPD, DKA, ARF, appy, cholecystitis, CVA, Diverticulitis, Homicidal, Suicidal, threat to staff... and all critical care pts) @ -Does not appear to be life-threatening at this time Disposition Clinical Impression: Abdominal pain Disposition: LEFT AGAINST MEDICAL ADVICE Referrals: None,Stated [Primary Care Provider] - 1-2 days Time of Disposition: 19:16
== END 2024-05-10 19:02 | disposition left against medical advice (07) ==
LOC: EC 18:05
CPT/HCPCS: 99284

== ENCOUNTER 2024-05-18 15:40 | Emergency (ER) | payer OTHER, MEDICARE ==
[2024-05-18 15:48] VITALS: RESP 18
[2024-05-18] MEDS: MORPHINE SULFATE 2 MG/ML SYRINGE IVP STA (15:56)
[2024-05-18] MEDS: LACTATED RINGERS 1,000 ML BAG IV STA (15:59)
[2024-05-18 16:02] LABS: Basophils # (A) 0.1 k/uL (0-0.2); Basophils % (A) 1 %; Eosinophils # (A) 0.1 k/uL (0-0.7); Eosinophils % (A) 1 %; HCT 40.9 % (39.0-53.0); HGB 13.6 gm/dL (13.0-17.5); Lymphocytes # (A) 2.8 k/uL (1.0-4.8); Lymphocytes % (A) 26 %; MCH 29.9 pg (25.0-35.0); MCHC 33.2 g/dL (31.0-37.0); Mean Platelet Volume 6.8; Monocytes # (A) 0.5 k/uL (0-1.0); Monocytes % (A) 5 %; Neutrophils # (A) 7.2 k/uL (1.3-7.7); Neutrophils % (A) 65 %; Platelet Count 293 k/uL (150-450); RBC 4.55 m/uL (4.30-5.90); RDW 14.1 % (11.5-15.5)
[2024-05-18] MEDS: SODIUM CHLORIDE 0.9% 1,000 ML IV STA (16:12)
[2024-05-18 16:18] LABS: ALT 83 U/L (4-49); AST 69 U/L (17-59); African American GFR (CKD) >90 (>60 ml/min/1.73 sqM); Albumin 3.7 g/dL (3.5-5.0); Alcohol <10 mg/dL; Alkaline Phosphatase 64 U/L (38-126); Anion Gap 5 mmol/L; Blood Urea Nitrogen 19 mg/dL (9-20); Calcium 9.5 mg/dL (8.4-10.2); Carbon Dioxide 37 mmol/L (22-30); Chloride 98 mmol/L (98-107); Glucose 103 mg/dL (74-99); Non-African American GFR(CKD) >90 (>60 ml/min/1.73 sqM); Sodium 140 mmol/L (137-145); Total Bilirubin 0.5 mg/dL (0.2-1.3); Total Protein 6.4 g/dL (6.3-8.2)
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
[2024-05-18] MEDS: DIPH,PERTUS(ACELL)TETVAC-LF 0.5 ML VIAL IM ONE (16:19)
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
[2024-05-18] MEDS: TOPICAL SKIN ADHESIVE 1 EACH AMP TOPICAL ONE (17:27)
[2024-05-18] MEDS ORDERED: TOPICAL SKIN ADHESIVE 1 EACH AMP TOPICAL ONE (17:32)
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
[2024-05-18 17:58] VITALS: BP 137/93; PULSE 92; TEMP 98.6
== END 2024-05-18 18:00 | disposition home or self-care (01) ==
LOC: EC 15:40
DX: V89.2XXA Person injured in unspecified motor-vehicle accident, traffic, initial encounter
CPT/HCPCS: 12001; 36415; 70450; 70486; 71045; 71260; 72125; 72129; 72132; 72170; 74177; 80053; 80320; 85025; 86850; 86900; 86901; 90471; 90715; 93005; 96365; 96375; 99291

== ENCOUNTER 2024-05-29 00:46 | Emergency (ER) | payer MEDICARE ==
[2024-05-29 00:51] VITALS: RESP 18; TEMP 97.8
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
[2024-05-29 03:52] VITALS: BP 140/85
[2024-05-29 05:44] VITALS: PULSE 75
== END 2024-05-29 06:41 | disposition home or self-care (01) ==
LOC: EC 00:46
CPT/HCPCS: 99284

== ENCOUNTER 2024-05-29 20:25 | Emergency (ER) | payer MEDICARE ==
[2024-05-29 20:38] VITALS: BP 138/77; PULSE 115; RESP 20; TEMP 97.9
--- NOTE | 2024-05-29 21:24 | ED ---
General Adult HPI - General Chief complaint: Extremity Problem,Nontraumatic Stated complaint: L Shoulder Pain Time Seen by Provider: 05/29/24 20:39 Source: patient, RN notes reviewed Mode of arrival: ambulatory Limitations: no limitations - History of Present Illness Initial comments: 48-year-old male presents emergency department chief complaint of left shoulder and neck pain. Patient states that the pain started yesterday or the day before and believes that he may have slept in an uncomfortable position causing pain. He denies falling or any overt injuries that may have caused the pain. Denies previous surgeries of the left arm or shoulder. Denies radiation of pain, shortness of breath, difficulty breathing, chest pain, heart palpitations f james, chills, nausea, vomiting. No other acute complaints at this time. - Related Data Home Medications Medication Instructions Recorded Confirmed No Known Home Medications 05/10/24 05/18/24 Allergies Allergy/AdvReac Type Severity Reaction Status Date / Time cat dander Allergy Itching Verified 05/29/24 00:51 banana AdvReac Nausea Verified 05/29/24 00:51 oxcarbazepine AdvReac seizures Verified 05/29/24 00:51 [From Trileptal] paliperidone [From Invega] AdvReac delusional Verified 05/29/24 00:51 risperidone [From Risperdal] AdvReac seizures Verified 05/29/24 00:51 Review of Systems ROS Statement: Those systems with pertinent positive or pertinent negative responses have been documented in the HPI. ROS Other: All systems not noted in ROS Statement are negative. Past Medical History Past Medical History: GERD/Reflux, Musculoskeletal Disorder, Seizure Disorder Additional Past Medical History / Comment(s): scoliosis, herpes, hiatal hernia, migraines, Hepatitis C History of Any Multi-Drug Resistant Organisms: None Reported Past Surgical History: No Surgical Hx Reported Additional Past Surgical History / Comment(s): EGD Past Anesthesia/Blood Transfusion Reactions: No Reported Reaction Past Psychological History: Anxiety, Bipolar, Depression, Schizoaffective Disorder Smoking Status: Current every day smoker Past Alcohol Use History: Abuse, Daily, Heavy Past Drug Use History: Cocaine, Marijuana, Methamphetamine - Past Family History Mother History Unknown: Yes Additional Family Medical History / Comment(s): from suicide attempt Father History Unknown: Yes Additional Family Medical History / Comment(s): Reports that he is currently in the stages of dying- but wont clarify further. Inititally the patient stated his father was . General Exam Limitations: no limitations General appearance: alert, in no apparent distress ENT exam: Present: normal exam, mucous membranes moist Neck exam: Present: normal inspection. Absent: tenderness, meningismus, lymphadenopathy Respiratory exam: Present: normal lung sounds bilaterally. Absent: respiratory distress, wheezes, rales, rhonchi, stridor Cardiovascular Exam: Present: regular rate, normal rhythm, normal heart sounds. Absent: systolic murmur, diastolic murmur, rubs, gallop, clicks GI/Abdominal exam: Present: soft, normal bowel sounds. Absent: distended, tenderness, guarding, rebound, rigid Left Shoulder Exam: Present: normal inspection, full ROM, tenderness. Absent: swelling, abrasion, laceration, ecchymosis Upper Arm exam: Present: normal inspection, full ROM. Absent: tenderness, swelling Neuro motor exam: Present: wrist extension intact, thumb opposition intact Vascular: Present: normal capillary refill, radial pulse (2+). Absent: vascular compromise Back exam: Present: normal inspection Skin exam: Present: warm, dry, intact, normal color. Absent: rash Course Vital Signs 05/29/24 20:37 Temperature 97.9 F Pulse Rate 115 H Respiratory 20 Rate Blood Pressure 138/77 O2 Sat by Pulse 96 Oximetry Medical Decision Making - Medical Decision Making Was pt. sent in by a medical professional or institution ([facility], [employer], urgent care, hospital, or jail...) When possible be specific @ -No Did you speak to anyone other than the patient for history (EMS, parent, family, police, friend...)? What history was obtained from this source @ -No Did you review nursing and triage notes (agree or disagree)? Why? @ -I reviewed and agree with nursing and triage notes Were old charts reviewed (outside hosp., previous admission, EMS record, old EKG, old radiological studies, urgent care reports/EKG's, jail records)? Report findings @ -No old charts were reviewed Differential Diagnosis (chest pain, altered mental status, abdominal pain women, abdominal pain men, vaginal bleeding, weakness, fever, dyspnea, syncope, headache, dizziness, GI bleed, back pain, seizure, CVA, palpatations, mental health, musculoskeletal)? @ -Differential Musculoskeletal Muscular strain, contusion, ligament sprain, fracture, arthritis, septic arthritis, bursitis, cellulitis, muscle spasm, nerve compression, DVT, arterial occlusion, herpes zoster, electrolyte abnormality, tumor.... This is not meant to be in all inclusive list EKG interpreted by me (3pts min.). @ -None X-rays interpreted by me (1pt min.). @ -None done CT interpreted by me (1pt min.). @ -None done U/S interpreted by me (1pt. min.). @ -None done What testing was considered but not performed or refused? (CT, X-rays, U/S, labs)? Why? @ -X-ray imaging of the shoulder was considered but deferred at this time. Nicole ent has full range of motion of the shoulder and there are no acute muscular or neurovascular deficits. Additionally there are no acute injuries. There is minimal clinical concern for osseous pathology at this time. Patient is also agree with deferring x-ray imaging at this time. What meds were considered but not given or refused? Why? @ -None Did you discuss the management of the patient with other professionals (professionals i.e. , PA, [employer], lab, RT, psych nurse, social work faculty member, photogrammetrist, teacher, learning and development officer, briefcase sewer)? Give summary @ -No Was smoking cessation discussed for >3mins.? @ -No Was critical care preformed (if so, how long)? @ -No Were there social determinants of health that impacted care today? How? (Homelessness, low income, unemployed, alcoholism, drug addiction, transportation, low edu. Level, literacy, decrease access to med. care, [facility], rehab)? @ -No Was there de-escalation of care discussed even if they declined (Discuss DNR or withdrawal of care, Hospice)? DNR status @ -No What co-morbidities impacted this encounter? (DM, HTN, Smoking, COPD, CAD, Cancer, CVA, ARF, Chemo, Hep., AIDS, mental health diagnosis, sleep apnea, morbid obesity)? @ -None Was patient admitted / discharged? Hospital course, mention meds given and route, prescriptions, significant lab abnormalities, going to OR and other pertinent info. @ -Discharged. 48-year-old male with shoulder pain. On examination patient with full range of motion of the shoulder with no radicular symptoms or neurovascular or muscular deficits. Patient has mild pain to palpation over the shoulder. Patient's injury likely secondary to a muscle strain at this time. Will that he continue supportive treatment at home using Tylenol and Motrin and rest and icing the area. Patient was offered a prescription for muscle relaxers however he states that he does not have good insurance at this time and declines prescription. All questions answered at bedside and strict return parameters marshall the patient is verbalized understanding. Case discussed with Dr. Martinez Undiagnosed new problem with uncertain prognosis? @ -No Drug Therapy requiring intensive monitoring for toxicity (Heparin, Nitro, Ins ulin, Cardizem)? @ -No Were any procedures done? @ -No Diagnosis/symptom? @ -shoulder pain Acute, or Chronic, or Acute on Chronic? @ -Acute Uncomplicated (without systemic symptoms) or Complicated (systemic symptoms)? @ -uncomplicated Side effects of treatment? @ -No Exacerbation, Progression, or Severe Exacerbation? @ -No Poses a threat to life or bodily function? How? (Chest pain, [place], [place], pneumonia, PE, COPD, DKA, ARF, appy, cholecystitis, CVA, Diverticulitis, Homicidal, Suicidal, threat to staff... and all critical care pts) @ -No Disposition Clinical Impression: Shoulder pain Disposition: HOME SELF-CARE Condition: Good Instructions (If sedation given, give patient instructions): Shoulder Pain (ED) Additional Instructions: Return to the emergency department for any new or worsening symptoms Is patient prescribed a controlled substance at d/c from ED?: No Referrals: None,Stated [Primary Care Provider] - 1-2 days Time of Disposition: 22:41
== END 2024-05-29 22:54 | disposition home or self-care (01) ==
LOC: EC 20:25
CPT/HCPCS: 99282

== ENCOUNTER 2024-05-30 18:46 | Emergency (ER) | payer MEDICARE ==
[2024-05-30 18:51] VITALS: TEMP 97.7
--- NOTE | 2024-05-30 19:43 | ED ---
Neck Injury/Pain HPI - General Chief Complaint: Neck Pain/Injury Stated Complaint: Back pain, low blood sugar Time Seen by Provider: 05/30/24 18:59 Source: patient, RN notes reviewed Mode of arrival: ambulatory Limitations: no limitations - History of Present Illness Initial Comments: This is a 48-year-old male who presents to the emergency department for neck pain and shoulder pain. Patient is well-known to this emergency department for multiple nonspecific visits. States that he has "a lot going on" and his muscles in the neck and shoulder are just uncomfortable. States that sometimes they start spasming on him. Denies any injuries. Requesting something to eat. MD Complaint: neck pain - Related Data Home Medications Medication Instructions Recorded Confirmed No Known Home Medications 05/10/24 05/18/24 Allergies Allergy/AdvReac Type Severity Reaction Status Date / Time cat dander Allergy Itching Verified 05/30/24 18:51 banana AdvReac Nausea Verified 05/30/24 18:51 oxcarbazepine AdvReac seizures Verified 05/30/24 18:51 [From Trileptal] paliperidone [From Invega] AdvReac delusional Verified 05/30/24 18:51 risperidone [From Risperdal] AdvReac seizures Verified 05/30/24 18:51 Review of Systems ROS Statement: Those systems with pertinent positive or pertinent negative responses have been documented in the HPI. ROS Other: All systems not noted in ROS Statement are negative. Past Medical History Past Medical History: GERD/Reflux, Musculoskeletal Disorder, Seizure Disorder Additional Past Medical History / Comment(s): scoliosis, herpes, hiatal hernia, migraines, Hepatitis C History of Any Multi-Drug Resistant Organisms: None Reported Past Surgical History: No Surgical Hx Reported Additional Past Surgical History / Comment(s): EGD Past Anesthesia/Blood Transfusion Reactions: No Reported Reaction Past Psychological History: Anxiety, Bipolar, Depression, Schizoaffective Disorder Smoking Status: Current every day smoker Past Alcohol Use History: Abuse, Daily, Heavy Past Drug Use History: Cocaine, Marijuana, Methamphetamine - Past Family History Mother History Unknown: Yes Additional Family Medical History / Comment(s): from suicide attempt Father History Unknown: Yes Additional Family Medical History / Comment(s): Reports that he is currently in the stages of dying- but wont clarify further. Inititally the patient stated his father was . General Exam Limitations: no limitations General appearance: alert, in no apparent distress Head exam: Present: atraumatic, normocephalic, normal inspection Neck exam: Present: full ROM, other (Tenderness over the bilateral trapezius muscles) Respiratory exam: Present: normal lung sounds bilaterally. Absent: respiratory distress, wheezes, rales, rhonchi, stridor Cardiovascular Exam: Present: regular rate, normal rhythm, normal heart sounds. Absent: systolic murmur, diastolic murmur, rubs, gallop, clicks Neurological exam: Present: alert, oriented X3, CN II-XII intact Psychiatric exam: Present: normal affect, normal mood Skin exam: Present: warm, dry, intact, normal color. Absent: rash Course Vital Signs 05/30/24 05/30/24 18:48 20:20 Temperature 97.7 F Pulse Rate 92 85 Respiratory 16 18 Rate Blood Pressure 116/80 120/84 O2 Sat by Pulse 98 97 Oximetry Medical Decision Making - Medical Decision Making This is a 48 year old male who presents to the emergency department for neck and shoulder pain. Was pt. sent in by a medical professional or institution? @ -No Did you speak to anyone other than the patient for history? @ -No Did you review nursing and triage notes? @ -Yes, and I agree, it is accurate with regards to the patient's symptoms. Were old charts reviewed? @ -No Differential Diagnosis? @ -Differential Neck Pain: Fracture, dislocation, contusion, strain, DDD, disc herniation, this is not meant to be an all-inclusive list. EKG interpreted by me (3pts min.)? @ -Not obtained X-rays interpreted by me (1pt min.)? @ -Not obtained CT interpreted by me (1pt min.)? @ -Not obtained U/S interpreted by me (1pt. min.)? @ -Not obtained What testing was considered but not performed? (CT, X-rays, U/S, labs)? Why? @ -None What meds were considered but not given? Why? @ -None Did you discuss the management of the patient with other professionals? @ -No Did you reconcile home meds? @ -No Was smoking cessation discussed for >3mins.? @ -No Was critical care preformed (if so, how long)? @ -No Were there social determinants of health that impacted care today? How? (Homelessness, low income, unemployed, alcoholism, drug addiction, transportation, low edu. Level, literacy, decrease access to med. care, skilled nursing, rehab)? @ -Homelessness, leading to multiple visits in order to get food and rest. Drug addiction also contributes to him having somewhat strange behavior. Was there de-escalation of care discussed even if they declined? (Discuss DNR or withdrawal of care, Hospice)? @ -No What co-morbidities impacted this encounter? (DM, HTN, Smoking, COPD, CAD, Cancer, CVA, Hep., AIDS, mental health diagnosis, sleep apnea, morbid obesity)? @ -Drug addiction Was patient admitted / discharged? @ -Discharged. Patient reported experiencing pain and muscle spasms because he has "a lot going on ". Pain was managed in the emergency department. He was given food and allowed to rest. Patient then discharged home in stable condition. Case discussed with ED attending, Dr. Martinez. Return precautions reviewed in depth, the patient is instructed to return to the emergency department with any new, worsening, or concerning symptoms. Patient verbalized understanding. Undiagnosed new problem with uncertain prognosis? @ -None Drug Therapy requiring intensive monitoring for toxicity (Heparin, Nitro, Insulin, Cardizem)? @ -None Were any procedures done? @ -None Diagnosis/symptom? @ -Cervical strain Acute, or Chronic, or Acute on Chronic? @ -Acute Uncomplicated (without systemic symptoms) or Complicated (systemic symptoms)? @ -Uncomplicated Side effects of treatment? @ -None Exacerbation, Progression, or Severe Exacerbation] @ -Not applicable Poses a threat to life or bodily function? @ -No Disposition Clinical Impression: Strain of neck muscle Disposition: HOME SELF-CARE Instructions (If sedation given, give patient instructions): Cervical Strain (ED) Additional Instructions: Return to the emergency department with any new, worsening, or concerning symptoms. Alternate with ibuprofen and Tylenol as needed for pain relief. Follow up with your primary care provider in 1-2 days. Is patient prescribed a controlled substance at d/c from ED?: No Referrals: None,Stated [Primary Care Provider] - 1-2 days Time of Disposition: 21:57
[2024-05-30] MEDS: methocarbamoL 500 MG TAB PO STA (20:10)
[2024-05-30] MEDS: ACETAMINOPHEN TAB 500 MG TAB PO STA (20:11)
[2024-05-30] MEDS: KETOROLAC 15 MG/ML 1 ML VIAL IM STA (20:12)
[2024-05-30 20:23] VITALS: BP 120/84; PULSE 85; RESP 18
== END 2024-05-30 22:31 | disposition home or self-care (01) ==
LOC: EC 18:46
CPT/HCPCS: 96372; 99283

== ENCOUNTER 2024-06-03 22:27 | Emergency (ER) | payer MEDICARE ==
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
[2024-06-04 04:25] LABS: Amphetamine Screen,Urine Detected (NotDetected); Barbiturate Screen,Urine Not Detected (NotDetected); Benzodiazepines Screen,Urine Not Detected (NotDetected); Cocaine Screen,Urine Not Detected (NotDetected); Methadone Screen, Urine Not Detected (NotDetected); Opiate Screen,Urine Not Detected (NotDetected); Oxycodone Screen, Urine Not Detected (NotDetected); Phencyclidine Screen,Urine Not Detected (NotDetected); Tricyclic Antidepressant,Urine Not Detected (NotDetected); Urn Cannabinoid Scrn Detected (NotDetected)
[2024-06-04 06:53] VITALS: BP 155/104; PULSE 87; RESP 18; TEMP 97.5
[2024-06-05 06:59] LABS: Glucose,Whole Blood 84 mg/dL (70-110)
== END 2024-06-04 06:53 | disposition home or self-care (01) ==
LOC: EC 22:27
DX: F19.10 Other psychoactive substance abuse, uncomplicated (principal); F17.200 Nicotine dependence, unspecified, uncomplicated; F14.90 Cocaine use, unspecified, uncomplicated; F12.90 Cannabis use, unspecified, uncomplicated; F15.90 Other stimulant use, unspecified, uncomplicated; Z88.8 Allergy status to other drugs, medicaments and biological substances; Z91.018 Allergy to other foods
CPT/HCPCS: 80306; 82075; 99285

== ENCOUNTER 2024-06-05 01:36 | Emergency (ER) | payer MEDICARE ==
[2024-06-05 01:43] VITALS: TEMP 97.4
[2024-06-05] MEDS: MAG HYDROX/AL HYDROX/SIMETH 30 ML, HYOSCYAMINE ELIXIR 10 ML, LIDOCAINE VISCOUS 2% 10 ML PO STA (02:43)
[2024-06-05 02:46] VITALS: RESP 18
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
[2024-06-05 06:15] VITALS: BP 134/82; PULSE 88
== END 2024-06-05 06:14 | disposition home or self-care (01) ==
LOC: EC 01:36
CPT/HCPCS: 99284

== ENCOUNTER 2024-06-08 16:39 | Emergency (ER) | payer MEDICARE ==
[2024-06-08 16:57] VITALS: TEMP 98.1
--- NOTE | 2024-06-08 19:01 | ED ---
General Adult HPI - General Chief complaint: Abdominal Pain Stated complaint: Abd pain Time Seen by Provider: 06/08/24 18:39 Source: patient Mode of arrival: wheelchair Limitations: no limitations - History of Present Illness Initial comments: Patient is a 48-year-old male presenting to the emergency department with concerns with abdominal discomfort. Patient states he has had abdominal discomfort since he was a child. Patient is unclear why he is here today with chronic abdominal symptoms. Patient is somewhat a poor historian. Patient does have history of alcohol and methamphetamine abuse as well as schizophrenia. Patient states he did vomit once yesterday. - Related Data Home Medications Medication Instructions Recorded Confirmed No Known Home Medications 05/10/24 05/18/24 Allergies Allergy/AdvReac Type Severity Reaction Status Date / Time cat dander Allergy Itching Verified 06/08/24 16:56 banana AdvReac Nausea Verified 06/08/24 16:56 oxcarbazepine AdvReac seizures Verified 06/08/24 16:56 [From Trileptal] paliperidone [From Invega] AdvReac delusional Verified 06/08/24 16:56 risperidone [From Risperdal] AdvReac seizures Verified 06/08/24 16:56 Review of Systems ROS Statement: Those systems with pertinent positive or pertinent negative responses have been documented in the HPI. ROS Other: All systems not noted in ROS Statement are negative. Constitutional: Denies: fever Eyes: Denies: eye pain Gastrointestinal: Reports: as per HPI, abdominal pain, vomiting Musculoskeletal: Denies: back pain Past Medical History Past Medical History: GERD/Reflux, Musculoskeletal Disorder, Seizure Disorder Additional Past Medical History / Comment(s): scoliosis, herpes, hiatal hernia, migraines, Hepatitis C History of Any Multi-Drug Resistant Organisms: None Reported Past Surgical History: No Surgical Hx Reported Additional Past Surgical History / Comment(s): EGD Past Anesthesia/Blood Transfusion Reactions: No Reported Reaction Past Psychological History: Anxiety, Bipolar, Depression, Schizoaffective Disorder Smoking Status: Current every day smoker Past Alcohol Use History: Abuse, Daily, Heavy Past Drug Use History: Cocaine, Marijuana, Methamphetamine - Past Family History Mother History Unknown: Yes Additional Family Medical History / Comment(s): from suicide attempt Father History Unknown: Yes Additional Family Medical History / Comment(s): Reports that he is currently in the stages of dying- but wont clarify further. Inititally the patient stated his father was . General Exam Limitations: no limitations General appearance: alert, in no apparent distress Head exam: Present: normocephalic Eye exam: Present: normal appearance Respiratory exam: Present: normal lung sounds bilaterally Cardiovascular Exam: Present: regular rate, normal rhythm Expanded Peripheral pulses: 2+: Dorsalis Pedis (R), Dorsalis Pedis (L) GI/Abdominal exam: Present: soft, normal bowel sounds. Absent: distended, tenderness, guarding, rebound, rigid, pulsatile mass Extremities exam: Present: normal inspection. Absent: pedal edema, calf tenderness Neurological exam: Present: alert Psychiatric exam: Present: normal affect, normal mood Skin exam: Present: normal color Course Vital Signs 06/08/24 16:54 Temperature 98.1 F Pulse Rate 87 Respiratory 18 Rate Blood Pressure 100/64 O2 Sat by Pulse 99 Oximetry Medical Decision Making - Medical Decision Making MDM back was pt. sent in by a medical professional or institution (, PA, STOCK TRANSFER CLERK, urgent care, hospital, or [facility]...) When possible be specific @ -No Did you speak to anyone other than the patient for history (EMS, parent, family, police, friend...)? What history was obtained from this source @ -No Did you review nursing and triage notes (agree or disagree)? Why? @ -I reviewed and agree with nursing and triage notes Were old charts reviewed (outside hosp., previous admission, EMS record, old EKG, old radiological studies, urgent care reports/EKG's, [facility] records)? Report findings @ -Previous visits and imaging reviewed Differential Diagnosis (chest pain, altered mental status, abdominal pain women, abdominal pain men, vaginal bleeding, weakness, fever, dyspnea, syncope, headache, dizziness, GI bleed, back pain, seizure, CVA, palpatations, mental health, musculoskeletal)? @ -Differential Abdominal Pain Men: Appendicitis, cholecystitis, diverticulosis, ischemic bowel, pancreatitis, hepatitis, UTI, gastroenteritis, AAA, incarcerated hernia, bowel obstruction, constipation, inflammatory bowel, hepatitis, peptic ulcer disease, splenic inf arction, perforated viscus, testicular torsion, this is not meant to be an all- inclusive list EKG interpreted by me (3pts min.). @ -As above X-rays interpreted by me (1pt min.). @ -None done CT interpreted by me (1pt min.). @ -CT scan does show material in the stomach as well as some anasarca of the soft tissue and edema of the mesentery which is nonspecific U/S interpreted by me (1pt. min.). @ -None done What testing was considered but not performed or refused? (CT, X-rays, U/S, labs)? Why? @ -None What meds were considered but not given or refused? Why? @ -None Did you discuss the management of the patient with other professionals (professionals i.e. , PA, STOCK TRANSFER CLERK, lab, RT, psych nurse, social media coordinator, car shagger, teacher, adult parole officer, case consultant)? Give summary @ -No Was smoking cessation discussed for >3mins.? @ -No Was critical care preformed (if so, how long)? @ -No Were there social determinants of health that impacted care today? How? (Homelessness, low income, unemployed, alcoholism, drug addiction, transportation, low edu. Level, literacy, decrease access to med. care, [facility]ci, rehab)? @ -No Was there de-escalation of care discussed even if they declined (Discuss DNR or withdrawal of care, Hospice)? DNR status @ -No What co-morbidities impacted this encounter? (DM, HTN, Smoking, COPD, CAD, Cancer, CVA, ARF, Chemo, Hep., AIDS, mental health diagnosis, sleep apnea, morbid obesity)? @ -Patient has chronic abdominal pain Was patient admitted / discharged? Hospital course, mention meds given and route, prescriptions, significant lab abnormalities, going to OR and other pertinent info. @ -Patient presents with chronic abdominal pain with nonspecific findings. On reevaluation patient is not expressing any concerns and is comfortable with discharge home. Patient is updated on results. Undiagnosed new problem with uncertain prognosis? @ -No Drug Therapy requiring intensive monitoring for toxicity (Heparin, Nitro, Insulin, Cardizem)? @ -No Were any procedures done? @ -No Diagnosis/symptom? @ -Abdominal pain Acute, or Chronic, or Acute on Chronic? @ -Acute on chronic Uncomplicated (without systemic symptoms) or Complicated (systemic symptoms)? @ -Default Side effects of treatment? @ -No Exacerbation, Progression, or Severe Exacerbation? @ -No Poses a threat to life or bodily function? How? (Chest pain, [place], [place], pneumonia, PE, COPD, DKA, ARF, appy, cholecystitis, CVA, Diverticulitis, Homicidal, Suicidal, threat to staff... and all critical care pts) @ -No - Lab Data Result diagrams: 06/08/24 19:32 06/08/24 19:32 Lab Results 06/08/24 06/08/24 06/08/24 Range/Units 19:32 19:32 19:32 WBC 9.0 (3.8-10.6) k/uL RBC 4.77 (4.30-5.90) m/uL Hgb 14.2 (13.0-17.5) gm/dL Hct 44.0 (39.0-53.0) % MCV 92.4 (80.0-100.0) fL MCH 29.8 (25.0-35.0) pg MCHC 32.2 (31.0-37.0) g/dL RDW 14.1 (11.5-15.5) % Plt Count 353 (150-450) k/uL MPV 6.8 Neutrophils % 62 % Lymphocytes % 25 % Monocytes % 7 % Eosinophils % 3 % Basophils % 1 % Neutrophils # 5.5 (1.3-7.7) k/uL Lymphocytes # 2.3 (1.0-4.8) k/uL Monocytes # 0.7 (0-1.0) k/uL Eosinophils # 0.2 (0-0.7) k/uL Basophils # 0.1 (0-0.2) k/uL PT 10.4 (10.0-12.5) sec INR 0.9 (<1.2) APTT 26.3 (22.0-30.0) sec Sodium 134 L (137-145) mmol/L Potassium 4.5 (3.5-5.1) mmol/L Chloride 103 (98-107) mmol/L Carbon Dioxide 30 (22-30) mmol/L Anion Gap 1 mmol/L BUN 16 (9-20) mg/dL Creatinine 0.55 L (0.66-1.25) mg/dL Est GFR (CKD-EPI)AfAm >90 (>60 ml/min/1.73 sqM) Est GFR (CKD-EPI)NonAf >90 (>60 ml/min/1.73 sqM) Glucose 81 (74-99) mg/dL Calcium 9.3 (8.4-10.2) mg/dL Total Bilirubin 0.2 (0.2-1.3) mg/dL AST 68 H (17-59) U/L ALT 113 H (4-49) U/L Alkaline Phosphatase 90 (38-126) U/L Total Protein 6.2 L (6.3-8.2) g/dL Albumin 3.4 L (3.5-5.0) g/dL Amylase 87 (30-110) U/L Lipase 448 H (23-300) U/L Urine Color Urine Appearance (Clear) Urine pH (5.0-8.0) Ur Specific [place] (1.001-1.035) Urine Protein (Negative) Urine Glucose (UA) (Negative) Urine Ketones (Negative) Urine Blood (Negative) Urine Nitrite (Negative) Urine Bilirubin (Negative) Urine Urobilinogen (<2.0) mg/dL Ur Leukocyte Esterase (Negative) Ur Squamous Epith Cells (0-4) /hpf Amorphous Sediment (None) /hpf Urine Mucus (None) /hpf Urine Opiates Screen (NotDetected) Ur Oxycodone Screen (NotDetected) Urine Methadone Screen (NotDetected) Ur Barbiturates Screen (NotDetected) U Tricyclic Antidepress (NotDetected) Ur Phencyclidine Scrn (NotDetected) Ur Amphetamines Screen (NotDetected) U Methamphetamines Scrn (NotDetected) U Benzodiazepines Scrn (NotDetected) Urine Cocaine Screen (NotDetected) U Marijuana (THC) Screen (NotDetected) Serum Alcohol <10 mg/dL 06/08/24 Range/Units 19:32 WBC (3.8-10.6) k/uL RBC (4.30-5.90) m/uL Hgb (13.0-17.5) gm/dL Hct (39.0-53.0) % MCV (80.0-100.0) fL MCH (25.0-35.0) pg MCHC (31.0-37.0) g/dL RDW (11.5-15.5) % Plt Count (150-450) k/uL MPV Neutrophils % % Lymphocytes % % Monocytes % % Eosinophils % % Basophils % % Neutrophils # (1.3-7.7) k/uL Lymphocytes # (1.0-4.8) k/uL Monocytes # (0-1.0) k/uL Eosinophils # (0-0.7) k/uL Basophils # (0-0.2) k/uL PT (10.0-12.5) sec INR (<1.2) APTT (22.0-30.0) sec Sodium (137-145) mmol/L Potassium (3.5-5.1) mmol/L Chloride (98-107) mmol/L Carbon Dioxide (22-30) mmol/L Anion Gap mmol/L BUN (9-20) mg/dL Creatinine (0.66-1.25) mg/dL Est GFR (CKD-EPI)AfAm (>60 ml/min/1.73 sqM) Est GFR (CKD-EPI)NonAf (>60 ml/min/1.73 sqM) Glucose (74-99) mg/dL Calcium (8.4-10.2) mg/dL Total Bilirubin (0.2-1.3) mg/dL AST (17-59) U/L ALT (4-49) U/L Alkaline Phosphatase (38-126) U/L Total Protein (6.3-8.2) g/dL Albumin (3.5-5.0) g/dL Amylase (30-110) U/L Lipase (23-300) U/L Urine Color Light Yellow Urine Appearance Turbid (Clear) Urine pH 8.0 (5.0-8.0) Ur Specific [place] 1.016 (1.001-1.035) Urine Protein Negative (Negative) Urine Glucose (UA) Negative (Negative) Urine Ketones Negative (Negative) Urine Blood Negative (Negative) Urine Nitrite Negative (Negative) Urine Bilirubin Negative (Negative) Urine Urobilinogen <2.0 (<2.0) mg/dL Ur Leukocyte Esterase Negative (Negative) Ur Squamous Epith Cells 1 (0-4) /hpf Amorphous Sediment Occasional H (None) /hpf Urine Mucus Rare H (None) /hpf Urine Opiates Screen Not Detected (NotDetected) Ur Oxycodone Screen Not Detected (NotDetected) Urine Methadone Screen Not Detected (NotDetected) Ur Barbiturates Screen Not Detected (NotDetected) U Tricyclic Antidepress Not Detected (NotDetected) Ur Phencyclidine Scrn Not Detected (NotDetected) Ur Amphetamines Screen Not Detected (NotDetected) U Methamphetamines Scrn Not Detected (NotDetected) U Benzodiazepines Scrn Not Detected (NotDetected) Urine Cocaine Screen Not Detected (NotDetected) U Marijuana (THC) Screen Detected H (NotDetected) Serum Alcohol mg/dL Disposition Clinical Impression: Abdominal pain Disposition: HOME SELF-CARE Condition: Stable Instructions (If sedation given, give patient instructions): Abdominal Pain (ED) Additional Instructions: Please do follow-up with primary care physician and surgeon within the next couple of days for recheck. Discontinue alcohol and drug use. Return for increased pain, vomiting, fever, worsening or changing symptoms or other concerns. Is patient prescribed a controlled substance at d/c from ED?: No Referrals: Walter Gentile MD [STAFF PHYSICIAN] - 1-2 days Nathanael Klein MD [STAFF PHYSICIAN] - 1-2 days Time of Disposition: 21:01
[2024-06-08 19:48] LABS: Basophils # (A) 0.1 k/uL (0-0.2); Basophils % (A) 1 %; Eosinophils # (A) 0.2 k/uL (0-0.7); Eosinophils % (A) 3 %; HGB 14.2 gm/dL (13.0-17.5); Lymphocytes # (A) 2.3 k/uL (1.0-4.8); Lymphocytes % (A) 25 %; MCH 29.8 pg (25.0-35.0); MCHC 32.2 g/dL (31.0-37.0); MCV 92.4 fL (80.0-100.0); Mean Platelet Volume 6.8; Monocytes # (A) 0.7 k/uL (0-1.0); Monocytes % (A) 7 %; Neutrophils # (A) 5.5 k/uL (1.3-7.7); Neutrophils % (A) 62 %; Platelet Count 353 k/uL (150-450); RBC 4.77 m/uL (4.30-5.90); RDW 14.1 % (11.5-15.5)
[2024-06-08 19:55] LABS: Amorphous Sediment,Urine Occasional /hpf; Appearance,Urine Turbid (Clear); Bilirubin,Urine Negative (Negative); Blood,Urine Negative (Negative); Color,Urine Light Yellow; Glucose,Urine (UA) Negative (Negative); Ketones,Urine Negative (Negative); Leukocyte Esterase,Urine Negative (Negative); Mucus,Urine Rare /hpf; Nitrite,Urine Negative (Negative); Protein,Urine Negative (Negative); Specific Gravity,Urine 1.016 (1.001-1.035); Squamous Epithelial Cell,Urine 1 /hpf (0-4); Urobilinogen,Urine <2.0 mg/dL (<2.0)
[2024-06-08 19:56] LABS: INR 0.9 (<1.2); Partial Thromboplastin Time 26.3 sec (22.0-30.0); Prothrombin Time 10.4 sec (10.0-12.5)
--- NOTE | 2024-06-08 19:59 | CT ---
EXAMINATION TYPE: CT abdomen pelvis wo con CT DLP: 331.8 mGycm, Automated exposure control for dose reduction was used. DATE OF EXAM: 06/08/2024 7:51 PM COMPARISON: CT abdomen pelvis most recent from 05/18/2024 CLINICAL INDICATION:Male, 48 years old with history of abdominal pain; Lower abdominal pain w/nausea. TECHNIQUE: Axial CT of the abdomen and pelvis. Sagittal and coronal reformats were created on a [employer] workstation. Contrast used: (none if empty) Oral contrast used: without Oral Contrast (none if empty) FINDINGS: LOWER CHEST: Unremarkable ABDOMEN: Lack of intraperitoneal fat does limit detail. LIVER: Unremarkable GALLBLADDER AND BILE DUCTS: Predominantly contracted. PANCREAS: Unremarkable. SPLEEN: Unremarkable. ADRENAL GLANDS: Unremarkable. KIDNEYS AND URETERS: No evidence of hydronephrosis or renal calculus. The ureters are unremarkable. PELVIS BLADDER: Unremarkable REPRODUCTIVE: Unremarkable. ABDOMEN & PELVIS STOMACH AND BOWEL: The stomach is prominent and filled with debris. No evidence of bowel obstruction. PERITONEUM/RETROPERITONEUM: No evidence of pneumoperitoneum or free fluid. Edematous appearance of th e abdominal mesentery. VASCULATURE: Mild atherosclerotic calcifications are present throughout the abdominal aorta and its b ranches. No evidence of aortic aneurysm. MUSCULOSKELETAL: No acute osseous abnormalities. Moderate disc degeneration changes are present throu ghout the thoracolumbar spine. LYMPH NODES: No gross evidence for lymphadenopathy. SOFT TISSUE/ABDOMINAL WALL: Mild soft tissue anasarca. IMPRESSION: 1. Prominent debris-filled stomach, correlate with any recent ingested meal. 2. Mild soft tissue anasarca and edematous abdominal mesentery, this is nonspecific but can be seen w ith fluid overload. [facility], , 06/08/2024 7:57 PM
[2024-06-08 20:02] LABS: Amphetamine Screen,Urine Not Detected (NotDetected); Barbiturate Screen,Urine Not Detected (NotDetected); Benzodiazepines Screen,Urine Not Detected (NotDetected); Cocaine Screen,Urine Not Detected (NotDetected); Methadone Screen, Urine Not Detected (NotDetected); Opiate Screen,Urine Not Detected (NotDetected); Oxycodone Screen, Urine Not Detected (NotDetected); Phencyclidine Screen,Urine Not Detected (NotDetected); Tricyclic Antidepressant,Urine Not Detected (NotDetected); Urn Cannabinoid Scrn Detected (NotDetected)
[2024-06-08 20:50] LABS: ALT 113 U/L (4-49); AST 68 U/L (17-59); African American GFR (CKD) >90 (>60 ml/min/1.73 sqM); Albumin 3.4 g/dL (3.5-5.0); Alcohol <10 mg/dL; Alkaline Phosphatase 90 U/L (38-126); Amylase 87 U/L (30-110); Anion Gap 1 mmol/L; Blood Urea Nitrogen 16 mg/dL (9-20); Calcium 9.3 mg/dL (8.4-10.2); Carbon Dioxide 30 mmol/L (22-30); Chloride 103 mmol/L (98-107); Glucose 81 mg/dL (74-99); Lipase 448 U/L (23-300); Non-African American GFR(CKD) >90 (>60 ml/min/1.73 sqM); Potassium 4.5 mmol/L (3.5-5.1); Sodium 134 mmol/L (137-145); Total Bilirubin 0.2 mg/dL (0.2-1.3); Total Protein 6.2 g/dL (6.3-8.2)
[2024-06-08 21:13] VITALS: BP 130/90; PULSE 81; RESP 16
== END 2024-06-08 21:11 | disposition home or self-care (01) ==
LOC: EC 16:39
CPT/HCPCS: 36415; 74176; 80053; 80306; 80320; 81001; 82150; 83690; 85025; 85610; 85730; 99284

== ENCOUNTER 2024-06-08 22:46 | Emergency (ER) | payer MEDICARE ==
[2024-06-08 22:52] VITALS: BP 125/90; PULSE 82; RESP 20; TEMP 98.7
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
[2024-06-09] MEDS: ACETAMINOPHEN TAB 500 MG TAB PO STA (00:03)
[2024-06-09] MEDS: IBUPROFEN 600 MG TAB PO STA (00:03)
== END 2024-06-09 00:38 | disposition home or self-care (01) ==
LOC: EC 22:46
CPT/HCPCS: 99283

== ENCOUNTER 2024-06-14 18:34 | Inpatient (IN) | payer MEDICARE ==
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
[2024-06-14 19:59] LABS: Amphetamine Screen,Urine Not Detected (NotDetected); Barbiturate Screen,Urine Not Detected (NotDetected); Benzodiazepines Screen,Urine Not Detected (NotDetected); Cocaine Screen,Urine Not Detected (NotDetected); Methadone Screen, Urine Not Detected (NotDetected); Opiate Screen,Urine Not Detected (NotDetected); Oxycodone Screen, Urine Not Detected (NotDetected); Phencyclidine Screen,Urine Not Detected (NotDetected); Tricyclic Antidepressant,Urine Not Detected (NotDetected); Urn Cannabinoid Scrn Detected (NotDetected)
[2024-06-14] MEDS ORDERED: LORazepam 2 MG/ML INJ IM PRN (22:57)
[2024-06-14] MEDS ORDERED: ACETAMINOPHEN TAB 325 MG TAB PO PRN (22:57)
[2024-06-14] MEDS ORDERED: MAGNESIUM HYDROXIDE 2,400 MG/30 ML CUP PO PRN (22:57)
[2024-06-14] MEDS ORDERED: HALOPERIDOL LACTATE 5 MG/ML 1 ML VIAL IM PRN (22:57)
--- NOTE | 2024-06-15 00:37 | P.PN ---
Progress Note - Text Progress Note Date: 06/15/24 notified of new consult , but per RN , patient inappropriate for evaluation at this time
[2024-06-15 07:44] LABS: Basophils % (A) 0 %; Eosinophils # (A) 0.3 k/uL (0-0.7); Eosinophils % (A) 3 %; HCT 43.5 % (39.0-53.0); HGB 13.8 gm/dL (13.0-17.5); Lymphocytes % (A) 21 %; MCH 29.4 pg (25.0-35.0); MCHC 31.8 g/dL (31.0-37.0); MCV 92.6 fL (80.0-100.0); Mean Platelet Volume 6.9; Monocytes # (A) 0.6 k/uL (0-1.0); Monocytes % (A) 7 %; Neutrophils # (A) 6.4 k/uL (1.3-7.7); Neutrophils % (A) 67 %; Platelet Count 330 k/uL (150-450); RDW 14.2 % (11.5-15.5); WBC 9.5 k/uL (3.8-10.6)
[2024-06-15 08:04] LABS: ALT 67 U/L (4-49); AST 38 U/L (17-59); African American GFR (CKD) >90 (>60 ml/min/1.73 sqM); Alkaline Phosphatase 71 U/L (38-126); Anion Gap 3 mmol/L; Blood Urea Nitrogen 8 mg/dL (9-20); Calcium 8.8 mg/dL (8.4-10.2); Carbon Dioxide 28 mmol/L (22-30); Chloride 107 mmol/L (98-107); Glucose 87 mg/dL (74-99); Non-African American GFR(CKD) >90 (>60 ml/min/1.73 sqM); Potassium 4.2 mmol/L (3.5-5.1); Sodium 138 mmol/L (137-145); Total Bilirubin 0.2 mg/dL (0.2-1.3); Total Protein 5.8 g/dL (6.3-8.2)
[2024-06-15] MEDS: NICOTINE 14MG/24HR PATCH TRANSDERM SCH (09:06)
[2024-06-15 10:21] LABS: Chol/HDL Ratio 2.25 Ratio; LDL Cholesterol,Calculated 44.9 mg/dL (0.0-131.0); VLDL Calculation 17.42 mg/dL (5.00-40.00)
[2024-06-15 12:26] LABS: Amorphous Sediment,Urine Many /hpf; Appearance,Urine Turbid (Clear); Bilirubin,Urine Negative (Negative); Blood,Urine Negative (Negative); Color,Urine Light Yellow; Glucose,Urine (UA) Negative (Negative); Ketones,Urine Negative (Negative); Leukocyte Esterase,Urine Negative (Negative); Mucus,Urine Rare /hpf; Nitrite,Urine Negative (Negative); PH, Urine 7.5 (5.0-8.0); Protein,Urine Negative (Negative); RBC,Urine <1 /hpf (0-5); Specific Gravity,Urine 1.018 (1.001-1.035); Urobilinogen,Urine <2.0 mg/dL (<2.0)
[2024-06-15] MEDS: haloperidoL 5 MG TAB PO PRN (16:12)
[2024-06-15] MEDS: LORazepam 1 MG TAB PO PRN (16:12)
[2024-06-15] MEDS: IBUPROFEN 600 MG TAB PO PRN (16:12)
--- NOTE | 2024-06-15 16:37 | P.HP ---
Psychiatric H&P - . H&P Date: 06/15/24 History & Physical: IDENTIFYING DATA: Patient is a 48 year old homeless male with history of polysubstance dependence. HPI: Per ER note, patient presented to the hospital "complaining of suicidal ideations. States he does not have specific suicidal ideations but keeps "praying to [place] to save his life as he almost gets hit by cars." The specimen medications but he does not take them. Patient is homeless. Presents for psychiatric evaluation. Denies homicidal ideations, times complaints. Denies any hallucinations. Does not drink alcohol. Smokes marijuana. No other acute complaints. History of polysubstance abuse." Per EPS assessment, "pt states, "I don't feel safe at all. Trying to get myself right, safe, and together." pt reports that he believes he is being followed and that people are after him. pt denies SI before stating he is suicidal "in a way." pt also states that he wants to hurt random people "but not deliberately." pt denies current hallucinations. pt apparently was in ER waiting room earlier asking for alcohol pads to remove scorpion stingers. pt refuses to answer further questions and fell asleep." I attempted to evaluate patient this afternoon. He was found isolating to his bed, laying down in the dark with blankets on. He is not able to participate in assessment due to the severity of his mental illness. He keeps his eyes closed and states "I have stingers in my fingers and thumbs and they need to be removed", apparently referring to tactile hallucinations. He appears to shake himself in bed, keeps eyes closed. When asked follow-up questions, he yells. He also complains of shoulder pain which has been evaluated in the ER in the past week. The medical doctor attempted to evaluate patient today but patient was not appropriate to participate in medical evaluation. Vital signs were taken at bedside this afternoon and are within normal limits. I am not able to evaluate for suicidal or homicidal ideation at this time due to the severity of his mental illness. He appears to be responding to auditory, visual and tactile hallucinations. He is agreeable to take Haldol 5 mg po x 1 and Ativan 1 mg po x 1 for agitation and anxiety. He has a history of polysubstance dependence (cannabis, amphetamines/methamphetamines, cocaine, hallucinogens (mushrooms)). UDS from 06/14/24 is positive for THC. UDS from 04/09/23 was positive for amphetamines/methamphetamines, cocaine, THC. He has a history of smoking tobacco, unclear how much he smokes currently. PAST PSYCHIATRIC HISTORY: The following was taken from past H&P dated 04/10/23 and updated as needed, due to the severity of his mental illness currently: He was last admitted to [facility] in 04/24, he presented with active psychotic symptom of hallucinations and delusions mixed with bizarre behavioral disturbances. His previous treatment has lapsed and hence his condition worsened markedlyn, previous diagnosis include schizoaffective disorder comorbid substance induced psychosis: cannabis, psychedics: (Psilocybin and query fantany ceramic mold designer drugs available in the drug trafficking culture ). He currently follows up at [facility] with Dr Fernandes. He was last discharged from the [facility] on Prolixin Dec DIMAS to help ensure compliance. denies any hx of suicide attempts PMH: Past Medical History: GERD/Reflux, Musculoskeletal Disorder, Seizure Disorder Additional Past Medical History / Comment(s): scoliosis, herpes, hiatal hernia, migraines, Hepatitis C History of Any Multi-Drug Resistant Organisms: None Reported Past Surgical History: No Surgical Hx Reported Additional Past Surgical History / Comment(s): EGD Past Anesthesia/Blood Transfusion Reactions: No Reported Reaction Past Psychological History: Anxiety, Bipolar, Depression, Schizoaffective Disorder Smoking Status: Current every day smoker Past Alcohol Use History: Abuse, Daily, Heavy Past Drug Use History: Cocaine, Marijuana, Methamphetamine ALLERGIES: as per EMR CHEMICAL DEPENDENCY HISTORY: as per HPI FAMILY PSYCHIATRIC/SUBSTANCE USE HISTORY: Not able to assess at this time due to the severity of his mental illness SOCIAL HISTORY: Homeless Not able to fully assess at this time due to the severity of his mental illness. MENTAL STATUS EXAM: General Appearance: Patient appears to be older than stated age, disheveled, +tattoos, poot dentition, poor hygiene and grooming. Behavior: Patient is laying in bed with covers on, keeps eyes closed, at times shaking, yelling, agitated Speech: Patient's speech is loud, fluent. Mood/Affect: Mood is irritable, affect is mood-congruent. Suicidality/Homicidality: Not able to fully evaluate due to severity of mental illness. Perceptions: Appears to be responding to auditory, visual and tactile hallucinations. Though content/process: There is evidence of delusional thought content and thought process is perseverative. Memory and concentration: Alert and oriented to person, place. Not able to evaluate time due to severity of mental illness. Judgment and insight: very poor STRENGTHS/WEAKNESSES: Strength is that patient is able to make needs known. Weakness is that patient has poor judgment and long history of substance abuse INTELLECT: Unable to fully assess due to the severity of mental illness. IMPRESSIONS: Schizoaffective disorder, bipolar type by history Rule out Substance-induced psychosis Cannabis use disorder Cocaine use disorder, by history Amphetamine use disorder, by history Hallucinogen use disorder (mushroom), by history Tobacco use disorder, by history PLAN: -Patient is admitted under voluntary status to [facility] for stabilization of psychiatric symptoms and safety. Patient has signed adult voluntary form. He is not able to sign the medication consent at this time due to the severity of his mental illness. -Medications: Will start patient on Haldol 5 mg po BID for psychosis. Monitor for EPS. Continue patient on Haldol 5 mg po Q6HR PRN for agitation and Ativan 1 mg po Q6HR PRN for severe anxiety. -Patient was informed of the risks, benefits and side effects of the medication and patient verbally consented to taking the medications. -Internal Medicine consult to perform medical evaluation and physical. -NRT - nicotine patch -SW on board for discharge planning. Encourage patient to participate in groups to work on coping skills. Allergies Allergy/AdvReac Type Severity Reaction Status Date / Time cat dander Allergy Itching Verified 06/14/24 18:36 banana AdvReac Nausea Verified 06/14/24 18:36 oxcarbazepine AdvReac seizures Verified 06/14/24 18:36 [From Trileptal] paliperidone [From Invega] AdvReac delusional Verified 06/14/24 18:36 risperidone [From Risperdal] AdvReac seizures Verified 06/14/24 18:36 Vital Signs Temp 97.9 F 06/14/24 23:29 Pulse 101 H 06/14/24 23:29 Resp 16 06/14/24 23:29 BP 139/87 06/14/24 23:29 Pulse Ox 99 06/14/24 23:29 FiO2 Intake & Output 06/14/24 06/15/24 06/15/24 18:59 06:59 18:59 Weight 56.699 kg 59.7 kg Laboratory Last Values WBC 9.5 k/uL (3.8-10.6) 06/15/24 07:11 RBC 4.70 m/uL (4.30-5.90) 06/15/24 07:11 Hgb 13.8 gm/dL (13.0-17.5) 06/15/24 07:11 Hct 43.5 % (39.0-53.0) 06/15/24 07:11 MCV 92.6 fL (80.0-100.0) 06/15/24 07:11 MCH 29.4 pg (25.0-35.0) 06/15/24 07:11 MCHC 31.8 g/dL (31.0-37.0) 06/15/24 07:11 RDW 14.2 % (11.5-15.5) 06/15/24 07:11 Plt Count 330 k/uL (150-450) 06/15/24 07:11 MPV 6.9 06/15/24 07:11 Neutrophils % 67 % 06/15/24 07:11 Lymphocytes % 21 % 06/15/24 07:11 Monocytes % 7 % 06/15/24 07:11 Eosinophils % 3 % 06/15/24 07:11 Basophils % 0 % 06/15/24 07:11 Neutrophils # 6.4 k/uL (1.3-7.7) 06/15/24 07:11 Lymphocytes # 2.0 k/uL (1.0-4.8) 06/15/24 07:11 Monocytes # 0.6 k/uL (0-1.0) 06/15/24 07:11 Eosinophils # 0.3 k/uL (0-0.7) 06/15/24 07:11 Basophils # 0.0 k/uL (0-0.2) 06/15/24 07:11 Sodium 138 mmol/L (137-145) 06/15/24 07:11 Potassium 4.2 mmol/L (3.5-5.1) 06/15/24 07:11 Chloride 107 mmol/L (98-107) 06/15/24 07:11 Carbon Dioxide 28 mmol/L (22-30) 06/15/24 07:11 Anion Gap 3 mmol/L 06/15/24 07:11 BUN 8 mg/dL (9-20) L 06/15/24 07:11 Creatinine 0.56 mg/dL (0.66-1.25) L 06/15/24 07:11 Est GFR (CKD-EPI)AfAm >90 (>60 ml/min/1.73 sqM) 06/15/24 07:11 Est GFR (CKD-EPI)NonAf >90 (>60 ml/min/1.73 sqM) 06/15/24 07:11 Glucose 87 mg/dL (74-99) 06/15/24 07:11 Calcium 8.8 mg/dL (8.4-10.2) 06/15/24 07:11 Total Bilirubin 0.2 mg/dL (0.2-1.3) 06/15/24 07:11 AST 38 U/L (17-59) 06/15/24 07:11 ALT 67 U/L (4-49) H 06/15/24 07:11 Alkaline Phosphatase 71 U/L (38-126) 06/15/24 07:11 Total Protein 5.8 g/dL (6.3-8.2) L 06/15/24 07:11 Albumin 3.0 g/dL (3.5-5.0) L 06/15/24 07:11 TSH 0.802 mIU/L (0.465-4.680) 06/15/24 07:11 Urine Opiates Screen Not Detected (NotDetected) 06/14/24 19:09 Ur Oxycodone Screen Not Detected (NotDetected) 06/14/24 19:09 Urine Methadone Screen Not Detected (NotDetected) 06/14/24 19:09 Ur Barbiturates Screen Not Detected (NotDetected) 06/14/24 19:09 U Tricyclic Antidepress Not Detected (NotDetected) 06/14/24 19:09 Ur Phencyclidine Scrn Not Detected (NotDetected) 06/14/24 19:09 Ur Amphetamines Screen Not Detected (NotDetected) 06/14/24 19:09 U Methamphetamines Scrn Not Detected (NotDetected) 06/14/24 19:09 U Benzodiazepines Scrn Not Detected (NotDetected) 06/14/24 19:09 Urine Cocaine Screen Not Detected (NotDetected) 06/14/24 19:09 U Marijuana (THC) Screen Detected (NotDetected) H 06/14/24 19:09 SARS-CoV-2 (PCR) Not Detected (Not Detectd) 06/14/24 19:10
[2024-06-15] MEDS: haloperidoL 5 MG TAB PO SCH (20:49)
--- NOTE | 2024-06-16 16:21 | P.PN ---
Progress Note - Text Progress Note Date: 06/16/24 Complaint: "Psychosis" Interval History: Patient was seen in the shower and was directable and agreeable to speak with rewriter in the office. Patient initially presented with agitation and noted that he needed to calm down before he talk to me. Patient's thought process during the interview seem to be somewhat disorganized. He noted that he was not suicidal or homicidal however, responded each time asked this "0 tolerance". He did note that smoke helps him breathe and he has become a "carbon base life form". He notes that his auditory hallucinations are currently baseline when asking him about visual hallucinations he noted "a little bit". Patient was unable to answer the question for paranoia. Stating that he is having nightmares about meth use. He notes that his sleep, energy and appetite are normal. He notes some improvements with his concentration. Patient denies any side effects from the medications and has been compliant with meds. Mental Status Exam: General Appearance: Patient appeared slightly disheveled older than his stated age and somewhat thin Behavior: Behavior at time was agitated he was speaking to himself but able to be redirected Speech: Patient's speech is fluent however patient presented with pressured speech. Mood/Affect: Mood appeared to be anxious and affect was hunted Suicidality/Homicidality: Patient denies having any suicidal or homicidal ideation intent or plan. Perceptions: Patient did present responding to internal stimuli and notes that he is having auditory and visual hallucinations Though content/process: Patient presented delusional Memory and concentration: AOX3, grossly intact for the purposes of this session Judgment and insight: Improving mildly Diagnosis: Schizoaffective disorder, bipolar type by history Rule out Substance-induced psychosis Cannabis use disorder Cocaine use disorder, by history Amphetamine use disorder, by history Hallucinogen use disorder (mushroom), by history Tobacco use disorder, by history Assessment Patient is presenting today just arriving being started on Haldol we will continue to see if this stabilizes him. Plan: -Patient continues to meet criteria for inpatient psychiatric admission for symptom stabilization and safety. Patient has strike that signed adult voluntary form and medication consent and was placed in patient's chart. -Medications: Continue patient on Haldol 5 mg po BID for psychosis. Monitor for EPS. -When necessary Ativan and Haldol for agitation/aggression. -NRT -nicotine patch -SW on board for discharge planning. Encouraged the patient to participate in milieu. ]
[2024-06-16] MEDS: MAG HYDROX/AL HYDROX/SIMETH 355 ML BOTTLE PO PRN (17:33)
[2024-06-17] MEDS: ONDANSETRON ODT 4 MG TAB PO STA (10:07)
[2024-06-17] MEDS: PANTOPRAZOLE 40 MG TABLET PO SCH (10:08)
--- NOTE | 2024-06-17 15:49 | P.PN ---
Progress Note - Text Progress Note Date: 06/17/24 Chief complaint: "Psychosis" Interval History: Patient was seen in his room and was directable and agreeable to speak with mortgage underwriter in the office. Patient's presentation today is far different from yesterday he is very polite and cordial. He did not make any outrageous statements. He notes that he has stopped having auditory hallucinations. He denies any visual hallucinations or ideas of reference. Any ongoing depression or anxiety. He denied any suicidal or homicidal ideations. Notes that his sleep, energy, and appetite are normal. When discussing discharge patient would like to be discharged Saturday so he can follow-up with [facility]. Mental Status Exam: General Appearance: Patient appeared better groomed than yesterday and remains older than his stated age and somewhat thin Behavior: Patient was cooperative and cordial during the interview. Speech: Patient's speech is fluent and the patient did not display any pressured speech. Strength that Mood/Affect: Patient appeared to be bright and euthymic Suicidality/Homicidality: Patient denies having any suicidal or homicidal dariusz ation intent or plan. Perceptions: Patient did not look internally preoccupied and did not suffer from any auditory or visual hallucinations. Though content/process: Patient was more linear and logical Memory and concentration: AOX3, grossly intact for the purposes of this session Judgment and insight: Improving mildly Diagnosis: Schizoaffective disorder, bipolar type by history Rule out Substance-induced psychosis Cannabis use disorder Cocaine use disorder, by history Amphetamine use disorder, by history Hallucinogen use disorder (mushroom), by history Tobacco use disorder, by history Assessment The patient appears to be making progress today and the Haldol seems to be quite effective. We did discuss discharge and the patient seemed motivated to return to [facility]. Plan: -Patient continues to meet criteria for inpatient psychiatric admission for symptom stabilization and safety. Patient has strike that signed adult voluntary form and medication consent and was placed in patient's chart. -Medications: Continue patient on Haldol 5 mg po BID for psychosis. Monitor for EPS. -When necessary Ativan and Haldol for agitation/aggression. -NRT -nicotine patch -SW on board for discharge planning. Encouraged the patient to participate in milieu. ]
--- NOTE | 2024-06-18 02:58 | P.PN ---
Progress Note - Text Progress Note Date: 06/17/24 Attempted evaluation on July 18 at 11 pm, initially patient gave permission however patient suddenly started using aggressive tone complaining about waking him up and asking him the same questions that he has been asked before patient started becoming violent and loud for which I stopped the interview apologized and left the room.
--- NOTE | 2024-06-18 14:49 | P.PN ---
Progress Note - Text Progress Note Date: 06/18/24 Chief complaint: "Psychosis" Interval History: Patient was seen in his room and was directable and agreeable to speak with copywriter in the office. Patient notes that he is doing good today. Described his activities today as wondering and thinking. He describes an extensive imagination. He does note that he is having auditory and visual hallucinations but they are waxing and waning. When asking about paranoia he had remarked "they are watching you on the cameras". Did endorse some mild depression and anxiety but did not go into further details. Dated that he slept poorly last night because of nightmares of vampires and demons. He notes that his energy and appetite are good. He notes with the medication his concentration keeps on improving. Denies any suicidal or homicidal ideations. Mental Status Exam: General Appearance: [Patient appears to be stated age is alert, directable, and cooperative.] Behavior: Patient presented somewhat restless and antsy but calm emotionally and engaging. Speech: Patient's speech is fluent and nonpressured. Mood/Affect: Mood is improving mildly, affect is congruent and constricted. Suicidality/Homicidality: Patient denies having any suicidal or homicidal ideation intent or plan. Perceptions: Patient did endorse auditory and visual hallucinations Though content/process: [There was evidence of any delusional thought content and thought process is linear and goal-directed.] Memory and concentration: AOX3, grossly intact for the purposes of this session Judgment and insight: Improving mildly Diagnosis: Schizoaffective disorder, bipolar type by history Rule out Substance-induced psychosis Cannabis use disorder Cocaine use disorder, by history Amphetamine use disorder, by history Hallucinogen use disorder (mushroom), by history Tobacco use disorder, by history Assessment Patient continues to make progress and per staff he is returning to baseline. He is excited about seeing Dr. Hughes tomorrow. Continue hospitalization at this time. Plan: -Patient continues to meet criteria for inpatient psychiatric admission for sym ptom stabilization and safety. Patient has strike that signed adult voluntary form and medication consent and was placed in patient's chart. -Medications: Continue patient on Haldol 5 mg po BID for psychosis. Monitor for EPS. -When necessary Ativan and Haldol for agitation/aggression. -NRT -nicotine patch -SW on board for discharge planning. Encouraged the patient to participate in milieu.
[2024-06-19] MEDS ORDERED: diphenhydrAMINE 50 MG CAP PO PRN (10:16)
--- NOTE | 2024-06-19 10:22 | P.PN ---
Progress Note - Text Progress Note Date: 06/19/24 Interval History: Patient was seen in his room and was directable and agreeable to speak with wr iter in the office. Patient notes that he is doing pretty good today. He is mildly bizarre. Appears to be fidgety. He states that the haldol is doing good for him. He states he slept well last night, and his appetite is good. He speaks of "pickers in my thumbs", and "feeling the heart attack in his arm". patient appeared to be restless at times, internally preoccupied. He denies AH/VH. Denies any suicidal or homicidal ideations. Has been compliant with meds, and denies any side effects. Mental Status Exam: General Appearance: [Patient appears to be older than stated age is alert, directable, and cooperative. Mildly bizarre, dressed in a hospital gown. Disheveled Behavior: Patient presented somewhat restless and antsy but calm emotionally and engaging. Speech: Patient's speech is fluent and nonpressured. Mood/Affect: Mood is improving mildly, affect is congruent and constricted. Suicidality/Homicidality: Patient denies having any suicidal or homicidal ideation intent or plan. Perceptions: Patient did endorse auditory and visual hallucinations Though content/process: [There was evidence of any delusional thought content and thought process is linear and goal-directed.] Memory and concentration: AOX3, grossly intact for the purposes of this session Judgment and insight: Improving mildly Assessment: Schizoaffective disorder, bipolar type by history Rule out Substance-induced psychosis Cannabis use disorder Cocaine use disorder, by history Amphetamine use disorder, by history Hallucinogen use disorder (mushroom), by history Tobacco use disorder, by history Plan: -Patient continues to meet criteria for inpatient psychiatric admission for symptom stabilization and safety. Patient has strike that signed adult voluntary form and medication consent and was placed in patient's chart. -Medications: Increase Haldol 7mg po BID for psychosis. Monitor for EPS. consider transitioning onto DIMAS to ensure compliance. -When necessary Ativan and Haldol for agitation/aggression. -NRT -nicotine patch -SW on board for discharge planning. Encouraged the patient to participate in milieu.
--- NOTE | 2024-06-20 16:04 | P.PN ---
Progress Note - Text Progress Note Date: 06/20/24 Interval History: Patient was seen bedside this afternoon. He states that he is hoping to acquire his freedom. Patient appears with bizarre unrelated statements. He talks about cocaine and drugs when asked about how he is doing. He denies concerns with medication. He denies any overt symptoms of psychosis including paranoia or hallucinations. Asked about sleep, he says "fine enough". He states that he has not eaten in centuries but later admits that he has fair appetite and that he ate lunch. He denies AH/VH. Denies any suicidal or homicidal ideations. Has been compliant with meds, and denies any side effects. Mental Status Exam: General Appearance: Patient appears to be older than stated age is alert, directable, and cooperative. Mildly bizarre, dressed in a hospital gown. Disheveled Behavior: internally agitated although no psychomotor agitation Speech: Patient's speech is fluent and nonpressured. Mood/Affect: Mood is improving mildly, affect is congruent and constricted. Suicidality/Homicidality: Patient denies having any suicidal or homicidal ideation intent or plan. Perceptions: Denies auditory and visual hallucinations Though content/process: Tangential, bizarre statements Memory and concentration: AOX3, grossly intact for the purposes of this session Judgment and insight: Improving mildly Assessment: Schizoaffective disorder, bipolar type by history Rule out Substance-induced psychosis Cannabis use disorder Cocaine use disorder, by history Amphetamine use disorder, by history Hallucinogen use disorder (mushroom), by history Tobacco use disorder, by history Plan: -Patient continues to meet criteria for inpatient psychiatric admission for symptom stabilization and safety. Patient has strike that signed adult voluntary form and medication consent and was placed in patient's chart. -Medications: Continue Haldol 7mg po BID for psychosis. Monitor for EPS. consider transitioning onto DIMAS to ensure compliance. -When necessary Ativan and Haldol for agitation/aggression. -NRT -nicotine patch + gum -SW on board for discharge planning. Encouraged the patient to participate in milieu.
[2024-06-20] MEDS: NICOTINE GUM (POLACRILEX) 2 MG GUM BUCCAL PRN (18:59)
[2024-06-20] MEDS: haloperidoL 5 MG TAB PO SCH (20:48)
--- NOTE | 2024-06-21 12:15 | P.PN ---
Progress Note - Text Progress Note Date: 06/21/24 Interval History: Patient was seen bedside this afternoon. He states that he wants "freedom". He makes less tangential statements during conversation today. He talks about cocaine and drugs when asked about how he is doing. He denies concerns with medication. He denies any overt symptoms of psychosis including paranoia or hallucinations. Patient was responding to internal stimuli and heard saying "ok thanks." He reports sleeping well and good appetite. He denies AH/VH. Denies any suicidal or homicidal ideations. Has been compliant with meds, and denies any side effects. Mental Status Exam: General Appearance: Patient appears to be older than stated age is alert, directable, and cooperative. Mildly bizarre, dressed in a hospital gown. Disheveled Behavior: internally agitated although no psychomotor agitation Speech: Patient's speech is fluent and nonpressured. Mood/Affect: Mood is improving mildly, affect is congruent and constricted. Suicidality/Homicidality: Patient denies having any suicidal or homicidal ideation intent or plan. Perceptions: Denies auditory and visual hallucinations but seen responding to internal stimuli Though content/process: More linear Memory and concentration: AOX3, grossly intact for the purposes of this session Judgment and insight: Improving mildly Assessment: Schizoaffective disorder, bipolar type by history Rule out Substance-induced psychosis Cannabis use disorder Cocaine use disorder, by history Amphetamine use disorder, by history Hallucinogen use disorder (mushroom), by history Tobacco use disorder, by history Plan: -Patient continues to meet criteria for inpatient psychiatric admission for symptom stabilization and safety. Patient has strike that signed adult voluntary form and medication consent and was placed in patient's chart. -Medications: Increase Haldol 10mg po BID for psychosis. Monitor for EPS. consider transitioning onto DIMAS to ensure compliance. -When necessary Ativan and Haldol for agitation/aggression. -NRT -nicotine patch + gum -SW on board for discharge planning. Encouraged the patient to participate in milieu.
[2024-06-21] MEDS: haloperidoL 5 MG TAB PO SCH (20:44)
[2024-06-22] MEDS: NICOTINE 21MG/24HR PATCH TRANSDERM SCH (08:47)
--- NOTE | 2024-06-22 10:49 | P.PN ---
Progress Note - Text Progress Note Date: 06/22/24 Interval History: Patient was seen in the hallway, and agreeable to speak to the entry writer in the o ffice. He states that he is well today, but he is reporting alot of energy, and just wants to run. He claims he is sleeping well, he is attending groups. Survey Supervisor spoke with patient about getting a DIMAS, patient is not agreeable, he states that there is too much susceptibility to peoples speech. Patient is sitting in the He reports a good appetite. He denies AH/VH. Denies any suicidal or homicidal ideations. Has been compliant with meds, and denies any side effects. Mental Status Exam: General Appearance: Patient appears to be older than stated age is alert, directable, and cooperative. Mildly bizarre, dressed in a hospital gown. Disheveled Behavior: Seated calmly with no agitation. Restless. Speech: Patient's speech is fluent and nonpressured. Mood/Affect: Mood is improving mildly, affect is congruent and constricted. Suicidality/Homicidality: Patient denies having any suicidal or homicidal ideation intent or plan. Perceptions: Denies auditory and visual hallucinations but seen responding to internal stimuli Though content/process: More linear Memory and concentration: AOX3, grossly intact for the purposes of this session Judgment and insight: Improving mildly Assessment: Schizoaffective disorder, bipolar type by history Rule out Substance-induced psychosis Cannabis use disorder Cocaine use disorder, by history Amphetamine use disorder, by history Hallucinogen use disorder (mushroom), by history Tobacco use disorder, by history Plan: -Patient continues to meet criteria for inpatient psychiatric admission for symptom stabilization and safety. Patient has strike that signed adult voluntary form and medication consent and was placed in patient's chart. -Medications: Haldol 10mg po BID for psychosis. Monitor for EPS. consider transitioning onto DIMAS to ensure compliance. Cogentin 1mg bid for EPS symptoms/tremors, propanolol 20mg bid for akithesia -When necessary Ativan and Haldol for agitation/aggression. -NRT -nicotine patch + gum -SW on board for discharge planning. Encouraged the patient to participate in milieu. Patient refusing DIMAS. Likely d/c Saturday to [facility] living.
[2024-06-22] MEDS: PROPRANOLOL 20 MG TAB PO SCH (12:21)
[2024-06-22] MEDS: BENZTROPINE MESYLATE 1 MG TAB PO SCH (12:21)
--- NOTE | 2024-06-23 11:42 | P.PN ---
Progress Note - Text Progress Note Date: 06/23/24 nterval History: Patient was seen in the hallway, and agreeable to speak to the director underwriter sales in the of rao. He states that he is imaginative today, and has been writing poetry. He states that his restlessness is improving and is denying any tremors. He claims he is sleeping well, and he is attending groups claims they played bingo today. He endorses a good appetite. He denies AH/VH. Denies any suicidal or homicidal ideations. Has been compliant with meds, and denies any side effects. Mental Status Exam: General Appearance: Patient appears to be older than stated age is alert, directable, and cooperative. several tattoos, Improving hygiene and grooming, dressed casually. Behavior: Seated calmly with no agitation. Speech: Patient's speech is fluent and nonpressured. Mood/Affect: Mood is improving mildly, affect is congruent and constricted. improving Suicidality/Homicidality: Patient denies having any suicidal or homicidal ideation intent or plan. Perceptions: Denies auditory and visual hallucinations Though content/process: More linear Memory and concentration: AOX3, grossly intact for the purposes of this session Judgment and insight: chronically poor, Improving mildly Assessment: Schizoaffective disorder, bipolar type by history Rule out Substance-induced psychosis Cannabis use disorder Cocaine use disorder, by history Amphetamine use disorder, by history Hallucinogen use disorder (mushroom), by history Tobacco use disorder, by history Plan: -Patient continues to meet criteria for inpatient psychiatric admission for symptom stabilization and safety. Patient has strike that signed adult voluntary form and medication consent and was placed in patient's chart. -Medications: Haldol 10mg po BID for psychosis. Monitor for EPS. patient is declining DIMAS at this time. Cogentin 1mg bid for EPS symptoms/tremors, propanolol 20mg bid for akithesia -When necessary Ativan and Haldol for agitation/aggression. -NRT -nicotine patch + gum -SW on board for discharge planning. Encouraged the patient to participate in milieu. Patient refusing DIMAS. Likely d/c Saturday to alf.
[2024-06-24 07:04] VITALS: PULSE 74; RESP 16; TEMP 97.7
[2024-06-24 08:03] VITALS: BP 115/80
--- NOTE | 2024-06-24 10:04 | P.DS ---
Providers Date of admission: 06/14/24 22:50 Expected date of discharge: 06/24/24 Attending physician: Lion Hughes MD Consults: 06/14/24 22:57 Consult Physician Routine Consulting Provider: Leonela Physician Consult Reason/Comments: H&P and medical Do you want consulting provider notified?: Yes Primary care physician: Stated None - Discharge Diagnosis(es) (1) Schizoaffective disorder, bipolar type Current Visit: No Status: Acute Priority: High (2) Cannabis use disorder Current Visit: Yes Status: Acute Priority: High (3) Cocaine use disorder Current Visit: Yes Status: Acute Priority: Medium (4) Amphetamine use disorder, moderate Current Visit: Yes Status: Acute Priority: Medium (5) Hallucinogen abuse Current Visit: Yes Status: Acute Priority: Medium (6) Nicotine dependence Current Visit: Yes Status: Acute Priority: Low Hospital Course: Admission HPI: Admission note was completed by Dr Castro " Per ER note, patient presented to the hospital "complaining of suicidal ideations. States he does not have specific suicidal ideations but keeps "praying to [place] to save his life as he almost gets hit by cars." The specimen medications but he does not take them. Patient is homeless. Presents for psychiatric evaluation. Denies homicidal ideations, times complaints. Denies any hallucinations. Does not drink alcohol. Smokes marijuana. No other acute complaints. History of polysubstance abuse." Per EPS assessment, "pt states, "I don't feel safe at all. Trying to get myself right, safe, and together." pt reports that he believes he is being followed and that people are after him. pt denies SI before stating he is suicidal "in a way." pt also states that he wants to hurt random people "but not deliberately." pt denies current hallucinations. pt apparently was in ER waiting room earlier asking for alcohol pads to remove scorpion stingers. pt refuses to answer further questions and fell asleep." I attempted to evaluate patient this afternoon. He was found isolating to his bed, laying down in the dark with blankets on. He is not able to participate in assessment due to the severity of his mental illness. He keeps his eyes closed and states "I have stingers in my fingers and thumbs and they need to be removed", apparently referring to tactile hallucinations. He appears to shake himself in bed, keeps eyes closed. When asked follow-up questions, he yells. He also complains of shoulder pain which has been evaluated in the ER in the past week. The medical doctor attempted to evaluate patient today but patient was not appropriate to participate in medical evaluation. Vital signs were taken at bedside this afternoon and are within normal limits. I am not able to evaluate for suicidal or homicidal ideation at this time due to the severity of his mental illness. He appears to be responding to auditory, visual and tactile hallucinations. He is agreeable to take Haldol 5 mg po x 1 and Ativan 1 mg po x 1 for agitation and anxiety. " Hospital course: Upon admission to the unit patient was directable and agreeable to commence treatment and signed adult voluntary form. Patient got along well with other patients on the unit and followed unit protocol. Patient was compliant with the medications and denied any side effects throughout hospital course. Patient was started on Haldol 10 mg p.o. twice daily for psychosis, patient was offered long-acting injection to help with compliance however he declined. Cogentin 1 mg twice daily for EPS symptoms/tremors, propranolol 20 mg twice daily for akathisia. Patient spoke of his stressors and engaged in therapy both group and individual. Patient was also seen by medical team for history and physical exam. Throughout the course of the hospitalization patient gradually improved with regards to mood, anxiety, psychosis, sleep and returned back to their baseline level of functioning. On the day of discharge patient denied any suicidal or homicidal ideations intent or plan denied any auditory or visual hallucinations. Patient endorsed wanting to live for his health and future. The patient denied any access to guns or weapons. Patient denied any paranoia and did not endorse any delusions. Patient does have a significant history of substance abuse and was counseled on abstaining from all substances including alcohol and marijuana. Patient was offered however declined inpatient substance-abuse rehab. Patient was also counseled on the medications and need for regular compliance and was encouraged to follow-up with their outpatient appointment for mental health and also for primary care. Patient will be discharged today, given [facility] information, guardian will be notified of patient's discharge today. Mental status exam: General Appearance: Patient appears to be thin, several tattoos, stated age is alert, pleasant, and cooperative. Patient is in no acute distress and has improved hygiene and grooming Behavior: Patient is calmly seated without any agitated behavior. Speech: Patient's speech is fluent and nonpressured. Mood/Affect: Patient reports their mood is "good", affect is congruent and euthymic. Suicidality/Homicidality: Patient denies having any suicidal or homicidal ideation intent or plan. Perceptions: Patient denies any auditory or visual hallucinations. Though content/process: There is no evidence of any delusional thought content and thought process is linear and goal-directed. More future oriented Memory and concentration: AOX3, grossly intact for the purposes of this session. Can spell "WORLD" backwards correctly. Judgment and insight: Chronically poor/limited, however has improved with guarded prognosis Impression: Schizoaffective disorder, bipolar type by history Rule out Substance-induced psychosis Cannabis use disorder Cocaine use disorder, by history Amphetamine use disorder, by history Hallucinogen use disorder (mushroom), by history Tobacco use disorder, by history Plan: -Continue with discharge today as patient has improved and stabilized psychiatrically and is not currently an imminent threat to himself and/or others. Patient will remain at chronically elevated risk for harm to self and/or others due to his impulsivity and polysubstance abuse. -Continue medications: Haldol 10 mg twice daily for psychosis, Cogentin 1 mg twice daily for EPS symptoms/tremors, propranolol 20 mg twice daily for akathisia. -Patient was counseled on the need for medication compliance and appropriate follow-up at mental health and also primary care for medical issues. Patient verbalized understanding and agreed. -Social work to help coordinate patient's discharge today, guardian will be notified, patient will be given [facility] information resources. Social work also to arrange for patients follow up appointments with [facility] for psychiatric care along with follow up with primary care provider. -Patient counseled on abstaining from recreational drugs and marijuana and alcohol. Was informed/educated on the adverse effects on their physical and mental health. Patient verbally agreed and understood. Patient was offered substance abuse treatment however declined at this time. -Patient was instructed to return to the hospital or seek immediate medical care if their psychiatric or medical symptoms do worsen or reoccur. Allergies Allergy/AdvReac Type Severity Reaction Status Date / Time cat dander Allergy Itching Verified 06/14/24 18:36 oxcarbazepine AdvReac seizures Verified 06/14/24 18:36 From Trileptal paliperidone from Invega AdvReac delusional Verified 06/14/24 18:36 risperidone from Risperdal AdvReac seizures Verified 06/14/24 18:36 Laboratory Results WBC 9.5 k/uL (3.8-10.6) 06/15/24 07:11 RBC 4.70 m/uL (4.30-5.90) 06/15/24 07:11 Hgb 13.8 gm/dL (13.0-17.5) 06/15/24 07:11 Hct 43.5 % (39.0-53.0) 06/15/24 07:11 MCV 92.6 fL (80.0-100.0) 06/15/24 07:11 MCH 29.4 pg (25.0-35.0) 06/15/24 07:11 MCHC 31.8 g/dL (31.0-37.0) 06/15/24 07:11 RDW 14.2 % (11.5-15.5) 06/15/24 07:11 Plt Count 330 k/uL (150-450) 06/15/24 07:11 MPV 6.9 06/15/24 07:11 Neutrophils % 67 % 06/15/24 07:11 Lymphocytes % 21 % 06/15/24 07:11 Monocytes % 7 % 06/15/24 07:11 Eosinophils % 3 % 06/15/24 07:11 Basophils % 0 % 06/15/24 07:11 Neutrophils # 6.4 k/uL (1.3-7.7) 06/15/24 07:11 Lymphocytes # 2.0 k/uL (1.0-4.8) 06/15/24 07:11 Monocytes # 0.6 k/uL (0-1.0) 06/15/24 07:11 Eosinophils # 0.3 k/uL (0-0.7) 06/15/24 07:11 Basophils # 0.0 k/uL (0-0.2) 06/15/24 07:11 Sodium 138 mmol/L (137-145) 06/15/24 07:11 Potassium 4.2 mmol/L (3.5-5.1) 06/15/24 07:11 Chloride 107 mmol/L (98-107) 06/15/24 07:11 Carbon Dioxide 28 mmol/L (22-30) 06/15/24 07:11 Anion Gap 3 mmol/L 06/15/24 07:11 BUN 8 mg/dL (9-20) L 06/15/24 07:11 Creatinine 0.56 mg/dL (0.66-1.25) L 06/15/24 07:11 Est GFR (CKD-EPI)AfAm >90 (>60 ml/min/1.73 sqM) 06/15/24 07:11 Est GFR (CKD-EPI)NonAf >90 (>60 ml/min/1.73 sqM) 06/15/24 07:11 Glucose 87 mg/dL (74-99) 06/15/24 07:[address] Glu mg/dL 123 mg/dL 06/15/24 07:11 Hemoglobin A1c 5.9 % (<=6.0) 06/15/24 07:11 Calcium 8.8 mg/dL (8.4-10.2) 06/15/24 07:11 Total Bilirubin 0.2 mg/dL (0.2-1.3) 06/15/24 07:11 AST 38 U/L (17-59) 06/15/24 07:11 ALT 67 U/L (4-49) H 06/15/24 07:11 Alkaline Phosphatase 71 U/L (38-126) 06/15/24 07:11 Total Protein 5.8 g/dL (6.3-8.2) L 06/15/24 07:11 Albumin 3.0 g/dL (3.5-5.0) L 06/15/24 07:11 Triglycerides 87.10 mg/dL (0.00-149.00) 06/15/24 07:11 Cholesterol 112.00 mg/dL (0.00-200.00) 06/15/24 07:11 LDL Cholesterol, Calc 44.9 mg/dL (0.0-131.0) 06/15/24 07:11 VLDL Cholesterol, Calc 17.42 mg/dL (5.00-40.00) 06/15/24 07:11 HDL Cholesterol 49.70 mg/dL (40.00-60.00) 06/15/24 07:11 Cholesterol/HDL Ratio 2.25 Ratio 06/15/24 07:11 TSH 0.802 mIU/L (0.465-4.680) 06/15/24 07:11 Urine Color Light Yellow 06/14/24 19:07 Urine Appearance Turbid (Clear) 06/14/24 19:07 Urine pH 7.5 (5.0-8.0) 06/14/24 19:07 Ur Specific [place] 1.018 (1.001-1.035) 06/14/24 19:07 Urine Protein Negative (Negative) 06/14/24 19:07 Urine Glucose (UA) Negative (Negative) 06/14/24 19:07 Urine Ketones Negative (Negative) 06/14/24 19:07 Urine Blood Negative (Negative) 06/14/24 19:07 Urine Nitrite Negative (Negative) 06/14/24 19:07 Urine Bilirubin Negative (Negative) 06/14/24 19:07 Urine Urobilinogen <2.0 mg/dL (<2.0) 06/14/24 19:07 Ur Leukocyte Esterase Negative (Negative) 06/14/24 19:07 Urine RBC <1 /hpf (0-5) 06/14/24 19:07 Amorphous Sediment Many /hpf (None) H 06/14/24 19:07 Urine Mucus Rare /hpf (None) H 06/14/24 19:07 Urine Opiates Screen Not Detected (NotDetected) 06/14/24 19:09 Ur Oxycodone Screen Not Detected (NotDetected) 06/14/24 19:09 Urine Methadone Screen Not Detected (NotDetected) 06/14/24 19:09 Ur Barbiturates Screen Not Detected (NotDetected) 06/14/24 19:09 U Tricyclic Antidepress Not Detected (NotDetected) 06/14/24 19:09 Ur Phencyclidine Scrn Not Detected (NotDetected) 06/14/24 19:09 Ur Amphetamines Screen Not Detected (NotDetected) 06/14/24 19:09 U Methamphetamines Scrn Not Detected (NotDetected) 06/14/24 19:09 U Benzodiazepines Scrn Not Detected (NotDetected) 06/14/24 19:09 Urine Cocaine Screen Not Detected (NotDetected) 06/14/24 19:09 U Marijuana (THC) Screen Detected (NotDetected) H 06/14/24 19:09 SARS-CoV-2 (PCR) Not Detected (Not Detectd) 06/14/24 19:10 Vital Signs Temp 97.7 F 06/24/24 07:03 Pulse 74 06/24/24 07:03 Resp 16 06/24/24 07:03 BP 115/80 06/24/24 08:02 Pulse Ox 98 06/24/24 07:03 FiO2 Patient Condition at Discharge: Stable Plan - Discharge Summary Discharge Rx Participant: No New Discharge Prescriptions: New Benztropine Mesylate [Cogentin] 1 mg PO BID 14 Days #28 tab Nicotine 21Mg/24Hr Patch [Habitrol] 1 patch TRANSDERM DAILY 14 Days #14 patch Propranolol [Inderal] 20 mg PO BID 14 Days #28 tab Ibuprofen [Motrin] 600 mg PO Q6HR PRN tab PRN Reason: Moderate Pain (Scale 4 To 6) Nicotine Gum (Polacrilex) [Nicorette] 2 mg BUCCAL Q4HR PRN 30 Days #180 pieceofgum PRN Reason: Nicotine Cravings haloperidoL [Haloperidol] 10 mg PO BID 14 Days #28 tab Pantoprazole [Protonix] 40 mg PO AC-BID 14 Days #28 tab Discharge Medication List Benztropine Mesylate [Cogentin] 1 mg PO BID 14 Days #28 tab 06/24/24 [Rx] Ibuprofen [Motrin] 600 mg PO Q6HR PRN tab 06/24/24 [Rx] Nicotine 21Mg/24Hr Patch [Habitrol] 1 patch TRANSDERM DAILY 14 Days #14 patch 06/24/24 [Rx] Nicotine Gum (Polacrilex) [Nicorette] 2 mg BUCCAL Q4HR PRN 30 Days #180 pieceofgum 06/24/24 [Rx] Pantoprazole [Protonix] 40 mg PO AC-BID 14 Days #28 tab 06/24/24 [Rx] Propranolol [Inderal] 20 mg PO BID 14 Days #28 tab 06/24/24 [Rx] haloperidoL [Haloperidol] 10 mg PO BID 14 Days #28 tab 06/24/24 [Rx] Follow up Appointment(s)/Referral(s): [facility] [Outside] - 06/26/24 10:00 am (06/26/2024 10:00AM - 11:00AM JARRETT HUFFMAN 06/24/2024 11:30AM - 12:30PM GERRY PRATIK 06/26/2024 10:00AM - 11:00AM JARRETT HUFFMAN 07/02/2024 1:30PM - 2:30PM JANA ESCOBAR ) [facility] Patient Instructions/Handouts: How to Stop Smoking (DC), Schizoaffective Disorder (DC) Activity/Diet/Wound Care/Special Instructions: [facility] Discharge Info Avoid the use of street drugs and alcohol. Take all medications as prescribed. When you are in need of refills on your medications, please contact your outpatient medical provider and/or outpatient psychiatrist. Please go to your scheduled outpatient appointments for aftercare treatment. If symptoms return or become worse, call the crisis line at or and/or visit the nearest emergency room for assistance. National Suicide and Crisis Lifeline - call or text 848. Discharge Disposition: OTHER INSTITUTION NOT DEFINED
== END 2024-06-24 12:05 | disposition home or self-care (01) | DRG 885 ==
LOC: EC 18:34 → 3MHU 22:50
PROVIDERS: ADMIT Psychiatry & Neurology Psychiatry; ATTEND Psychiatry & Neurology Psychiatry
DX: F25.0 Schizoaffective disorder, bipolar type (principal); F15.20 Other stimulant dependence, uncomplicated; R45.851 Suicidal ideations; Z59.00 Homelessness unspecified; F12.90 Cannabis use, unspecified, uncomplicated; F14.90 Cocaine use, unspecified, uncomplicated; F16.90 Hallucinogen use, unspecified, uncomplicated; F17.200 Nicotine dependence, unspecified, uncomplicated; F41.9 Anxiety disorder, unspecified; G40.909 Epilepsy, unspecified, not intractable, without status epilepticus; M41.9 Scoliosis, unspecified; Z79.899 Other long term (current) drug therapy; Z11.52 Encounter for screening for COVID-19
CPT/HCPCS: 80053; 80061; 80306; 81001; 82075; 83036; 84443; 85025; 87635; 99285

== ENCOUNTER 2024-06-28 11:55 | Emergency (ER) | payer MEDICARE ==
[2024-06-28 12:03] VITALS: BP 122/80; PULSE 82; RESP 24; TEMP 97.6
== END 2024-06-28 12:39 | disposition left against medical advice (07) ==
LOC: EC 11:55
DX: Z53.21 Procedure and treatment not carried out due to patient leaving prior to being seen by health care provider (principal)
CPT/HCPCS: 99499

== ENCOUNTER 2024-07-24 11:35 | Inpatient (IN) | payer MEDICARE, MEDICAID ==
--- NOTE | 2024-07-24 12:20 | ED ---
General Adult HPI - General Chief complaint: Altered Mental Status Stated complaint: Petition Time Seen by Provider: 07/24/24 11:59 Source: patient, RN notes reviewed Mode of arrival: ambulatory Limitations: no limitations - History of Present Illness Initial comments: Patient is a 48-year-old male presenting to the emergency department with concerns for mental health problems. Patient has difficulty providing history. Patient has racing thoughts. Patient unable to state if he is taking his medications. Patient does have history of previous psychosis. patient does frequently talk about drug use. Patient denies any physical complaints. - Related Data Home Medications Medication Instructions Recorded Confirmed fluPHENAZine decanoate [Prolixin 50 mg IM [id number] 07/24/24 07/24/24 Decanoate] Previous Rx's Medication Instructions Recorded Benztropine Mesylate [Cogentin] 1 mg PO BID 14 Days #28 tab 06/24/24 Pantoprazole [Protonix] 40 mg PO AC-BID 14 Days #28 tab 06/24/24 Propranolol [Inderal] 20 mg PO BID 14 Days #28 tab 06/24/24 haloperidoL [Haloperidol] 10 mg PO BID 14 Days #28 tab 06/24/24 Allergies Allergy/AdvReac Type Severity Reaction Status Date / Time cat dander Allergy Itching Verified 07/24/24 12:22 oxcarbazepine AdvReac seizures Verified 07/24/24 12:22 [From Trileptal] paliperidone [From Invega] AdvReac delusional Verified 07/24/24 12:22 risperidone [From Risperdal] AdvReac seizures Verified 07/24/24 12:22 Review of Systems ROS Statement: Those systems with pertinent positive or pertinent negative responses have been documented in the HPI. ROS Other: All systems not noted in ROS Statement are negative. Limitations: ROS unobtainable due to patients medical condition Psychiatric: Reports: as per HPI Past Medical History Past Medical History: GERD/Reflux, Musculoskeletal Disorder, Seizure Disorder Additional Past Medical History / Comment(s): scoliosis, herpes, hiatal hernia, migraines, Hepatitis C History of Any Multi-Drug Resistant Organisms: None Reported Past Surgical History: No Surgical Hx Reported Additional Past Surgical History / Comment(s): EGD Past Anesthesia/Blood Transfusion Reactions: No Reported Reaction Past Psychological History: Anxiety, Bipolar, Depression, Schizoaffective Disorder Smoking Status: Current every day smoker Past Alcohol Use History: Abuse, Daily, Heavy Past Drug Use History: Cocaine, Marijuana, Methamphetamine - Past Family History Mother History Unknown: Yes Additional Family Medical History / Comment(s): from suicide attempt Father History Unknown: Yes Additional Family Medical History / Comment(s): Reports that he is currently in the stages of dying- but wont clarify further. Inititally the patient stated his father was . General Exam Limitations: no limitations General appearance: alert Head exam: Present: normocephalic Eye exam: Present: normal appearance Neck exam: Present: normal inspection Respiratory exam: Present: normal lung sounds bilaterally Cardiovascular Exam: Present: regular rate, normal rhythm GI/Abdominal exam: Present: soft. Absent: tenderness Extremities exam: Present: normal inspection Neurological exam: Present: alert Psychiatric exam: Present: anxious, other (Restless) Expanded Focused psych exam: Present: delusional, restlessness, flight of ideas Skin exam: Present: normal color Medical Decision Making - Medical Decision Making Was pt. sent in by a medical professional or institution ( PA, CONTROL SYSTEM COMPUTER SCIENTIST, urgent care, hospital, or fdc...) When possible be specific @ -No Did you speak to anyone other than the patient for history (EMS, parent, family, police, friend...)? What history was obtained from this source @ -No Did you review nursing and triage notes (agree or disagree)? Why? @ -I reviewed and agree with nursing and triage notes Were old charts reviewed (outside hosp., previous admission, EMS record, old EKG, old radiological studies, urgent care reports/EKG's, fdc records)? Report findings @ -Petition reviewed Differential Diagnosis (chest pain, altered mental status, abdominal pain women, abdominal pain men, vaginal bleeding, weakness, fever, dyspnea, syncope, headache, dizziness, GI bleed, back pain, seizure, CVA, palpatations, mental health, musculoskeletal)? @ -Differential Mental Health Depression, anxiety, bipolar, psychosis, schizophrenia, borderline personality, situational depression, adjustment disorder, behavioral disorder, brain tumor, malingering, substance abuse, encephalopathy, medication reaction, dementia, hypothyroidism, degenerative neurologic disorder, lupus.... This is not meant to be all-inclusive list EKG interpreted by me (3pts min.). @ -As above X-rays interpreted by me (1pt min.). @ -None done CT interpreted by me (1pt min.). @ -None done U/S interpreted by me (1pt. min.). @ -None done What testing was considered but not performed or refused? (CT, X-rays, U/S, labs)? Why? @ -None What meds were considered but not given or refused? Why? @ -None Did you discuss the management of the patient with other professionals (professionals i.e. , PA, CONTROL SYSTEM COMPUTER SCIENTIST, lab, RT, psych nurse, healthcare social worker, psychiatric technician assistant, teacher, combat information center officer, disease case manager rn)? Give summary @ -Discussed case with psychiatric nurse with plans for admission Was smoking cessation discussed for >3mins.? @ -No Was critical care preformed (if so, how long)? @ -No Were there social determinants of health that impacted care today? How? (Homelessness, low income, unemployed, alcoholism, drug addiction, transportation, low edu. Level, literacy, decrease access to med. care, usp, rehab)? @ -No Was there de-escalation of care discussed even if they declined (Discuss DNR or withdrawal of care, Hospice)? DNR status @ -No What co-morbidities impacted this encounter? (DM, HTN, Smoking, COPD, CAD, Cancer, CVA, ARF, Chemo, Hep., AIDS, mental health diagnosis, sleep apnea, morbid obesity)? @ -History of psychiatric problem Was patient admitted / discharged? Hospital course, mention meds given and route, prescriptions, significant lab abnormalities, going to OR and other pertinent info. @ -Patient presents for mental health evaluation. Patient seen with plans for admission. Patient positive clinical certificate completed. Undiagnosed new problem with uncertain prognosis? @ -No Drug Therapy requiring intensive monitoring for toxicity (Heparin, Nitro, Insulin, Cardizem)? @ -No Were any procedures done? @ -No Diagnosis/symptom? @ -Psychosis Acute, or Chronic, or Acute on Chronic? @ -Acute Uncomplicated (without systemic symptoms) or Complicated (systemic symptoms)? @ -Default Side effects of treatment? @ -No Exacerbation, Progression, or Severe Exacerbation? @ -No Poses a threat to life or bodily function? How? (Chest pain, [place], [place], pneumonia, PE, COPD, DKA, ARF, appy, cholecystitis, CVA, Diverticulitis, Homicidal, Suicidal, threat to staff... and all critical care pts) @ -Threat to mental health - Lab Data Lab Results 07/24/24 Range/Units 12:16 Urine Opiates Screen Not Detected (NotDetected) Ur Oxycodone Screen Not Detected (NotDetected) Urine Methadone Screen Not Detected (NotDetected) Ur Barbiturates Screen Not Detected (NotDetected) U Tricyclic Antidepress Not Detected (NotDetected) Ur Phencyclidine Scrn Not Detected (NotDetected) Ur Amphetamines Screen Detected H (NotDetected) U Methamphetamines Scrn Not Detected (NotDetected) U Benzodiazepines Scrn Not Detected (NotDetected) Urine Cocaine Screen Not Detected (NotDetected) U Marijuana (THC) Screen Detected H (NotDetected) Disposition Clinical Impression: Psychosis Disposition: TRANSFER TO PSYCH HOSP/UNIT Is patient prescribed a controlled substance at d/c from ED?: No Referrals: None,Stated [Primary Care Provider] - 1-2 days Time of Disposition: 14:34
[2024-07-24 12:42] LABS: Amphetamine Screen,Urine Detected (NotDetected); Barbiturate Screen,Urine Not Detected (NotDetected); Benzodiazepines Screen,Urine Not Detected (NotDetected); Cocaine Screen,Urine Not Detected (NotDetected); Methadone Screen, Urine Not Detected (NotDetected); Opiate Screen,Urine Not Detected (NotDetected); Oxycodone Screen, Urine Not Detected (NotDetected); Phencyclidine Screen,Urine Not Detected (NotDetected); Tricyclic Antidepressant,Urine Not Detected (NotDetected); Urn Cannabinoid Scrn Detected (NotDetected)
[2024-07-24] MEDS: ZIPRASIDONE 20 MG VIAL IM STA (16:12)
[2024-07-24] MEDS: LORazepam 2 MG/ML INJ IM STA (16:13)
[2024-07-24] MEDS ORDERED: ACETAMINOPHEN TAB 325 MG TAB PO PRN (21:19)
[2024-07-24] MEDS ORDERED: MAG HYDROX/AL HYDROX/SIMETH 355 ML BOTTLE PO PRN (21:19)
[2024-07-24] MEDS ORDERED: MAGNESIUM HYDROXIDE 2,400 MG/30 ML CUP PO PRN (21:19)
[2024-07-24] MEDS ORDERED: IBUPROFEN 600 MG TAB PO PRN (21:19)
[2024-07-24] MEDS: fluPHENAZine DECANOATE 25 MG/ML 5ML MDV IM ONE (22:16)
[2024-07-25] MEDS: HALOPERIDOL LACTATE 5 MG/ML 1 ML VIAL IM PRN (07:33)
[2024-07-25] MEDS: LORazepam 2 MG/ML INJ IM PRN (07:34)
[2024-07-25] MEDS: PROPRANOLOL 20 MG TAB PO SCH (08:00)
[2024-07-25] MEDS: PANTOPRAZOLE 40 MG TABLET PO SCH (08:00)
[2024-07-25] MEDS: haloperidoL 5 MG TAB PO SCH (08:00)
[2024-07-25] MEDS: BENZTROPINE MESYLATE 1 MG TAB PO SCH (08:00)
[2024-07-25] MEDS: NICOTINE 14MG/24HR PATCH TRANSDERM SCH (08:01)
--- NOTE | 2024-07-25 12:29 | P.HP ---
Psychiatric H&P - . H&P Date: 07/25/24 History & Physical: IDENTIFYING DATA: Patient is a 48 year old male with extensive psychiatric history. HPI: Presley Elizalde is a 48 year old male with a history of schizoaffective disorder, bipolar type, and multiple substance use disorders including (cannabis, amphetamine, cocaine, hallucinogens, and nicotine) who presented to the ER on 07/24/24 from [facility] on petition due to concern for psychosis. Per EPS: "Brought in via PD from [facility] on PET. Cl observed talking to themselves loudly and responding to internal stimuli, agitated, and reported aggressive. Cl presents tangential, disorganized, flight of ideas, ideas of reference, paranoid, agitated, disheveled, loose associations. Cl is animated in speech, laughing to self, pointing at different "people" in the room and has an intense affect throughout assessment. Cl reports "no" sleep in 3 days and " some appetite with meat from across the street store". Cl made various statements during the interview. i.e. " ACT they aren't the gods, I am telling Dad that brother is safe on the bus with our cousins who I love. They can't tell me where I am, I went to [place], they know that I trip, I'll smoke when I can." When asked basic questions Cl consistently gave loose association answers and attempted to not answer questions several times." During today's visit, Mr. Elizalde was initially in bed and covered his head when greeted. When asked about the events leading to his admission he said he "needed to settle down" and was unable to elaborate further and proceeded to have various tangential thoughts. He cited having "a couple of interruptions" last night which did disturb his sleep. He did describe his mood as "better" today than when he came to the hospital yesterday. He explained, "I would like to feel happy all the time.". He denied experiencing depression or persistent sadness. As we were talking he abruptly got up from bed and walked out of his room into the hallway he started to become more irritable as attempts were made to ask other questions and engage further. He denied experiencing "anger or suicide" and did not answer any further questions coherently. He went on to talk about "people pissing in my daughter's Wheaties" and "one copyist is to him". He did state that he was getting agitated and did not want to talk further. We ended the conversation at that time. PAST PSYCHIATRIC HISTORY: Patient has a history of schizoaffective disorder, bip olar type, and multiple substance use disorders including (cannabis, amphetamine, cocaine, hallucinogens, and nicotine). He has been hospitalized more than 20 times for inpatient psychiatric treatment. His last admission was 06/14/2024 through 06/24/2024 in [facility]. He is followed by the ID DVT team at [facility]. He is presently on fluphenazine decanoate 50 mg IM once every 2 weeks and Haldol 10 mg BID. PMH: GERD, Seizure disorder, musculoskeletal concerns (scoliosis), migraines, Hep C. Reportedly receives primary care at [facility]. ALLERGIES: Allergy/AdvReac Type Severity Reaction Status Date / Time cat dander Allergy Itching Verified 07/24/24 12:22 oxcarbazepine AdvReac seizures Verified 07/24/24 12:22 From Trileptal paliperidone from Invega AdvReac delusional Verified 07/24/24 12:22 risperidone from Risperdal AdvReac seizures Verified 07/24/24 12:22 CHEMICAL DEPENDENCY HISTORY: History of consuming mushrooms from the [place] and other hallucinogens. UDS positive for both amphetamine and THC on presentation 07/24/24. FAMILY PSYCHIATRIC/SUBSTANCE USE HISTORY: Unable to assess due to present severity of psychiatric symptoms. SOCIAL HISTORY: Patient has a history of experiencing homelessness and being under the care of a public guardian. Unable to ascertain additional history due to present severity of psychiatric symptoms. VITAL SIGNS: Temp Pulse 129 H 07/25/24 08:02 Resp 20 07/25/24 08:02 BP 106/74 07/25/24 08:02 Pulse Ox 99 07/24/24 18:17 FiO2 Intake & Output 07/24/24 07/25/24 07/25/24 18:59 06:59 18:59 Weight 72.575 kg Laboratory Last Values Urine Opiates Screen Not Detected (NotDetected) 07/24/24 12:16 Ur Oxycodone Screen Not Detected (NotDetected) 07/24/24 12:16 Urine Methadone Screen Not Detected (NotDetected) 07/24/24 12:16 Ur Barbiturates Screen Not Detected (NotDetected) 07/24/24 12:16 U Tricyclic Antidepress Not Detected (NotDetected) 07/24/24 12:16 Ur Phencyclidine Scrn Not Detected (NotDetected) 07/24/24 12:16 Ur Amphetamines Screen Detected (NotDetected) H 07/24/24 12:16 U Methamphetamines Scrn Not Detected (NotDetected) 07/24/24 12:16 U Benzodiazepines Scrn Not Detected (NotDetected) 07/24/24 12:16 Urine Cocaine Screen Not Detected (NotDetected) 07/24/24 12:16 U Marijuana (THC) Screen Detected (NotDetected) H 07/24/24 12:16 Influenza Type A (PCR) Not Detected (Not Detectd) 07/24/24 18:13 Influenza Type B (PCR) Not Detected (Not Detectd) 07/24/24 18:13 RSV (PCR) Not Detected (Not Detectd) 07/24/24 18:13 SARS-CoV-2 (PCR) Not Detected (Not Detectd) 07/24/24 18:13 MENTAL STATUS EXAM: General Appearance: Patient appears to be stated age is alert, difficult to direct, and impaired in ability to cooperate. Patient appears to have poor hygiene and grooming. Behavior: Patient is initially lying down though gets up abruptly to go into the hallway, walking quickly. Noted psychomotor agitation. Speech: Patient's speech is fluent but pressured. Mood/Affect: Patient reports their mood is "better", affect is constricted and gruff. Suicidality/Homicidality: Patient denies having any suicidal ideation intent or plan. Denies "anger" and does not endorse homicidal ideation. Perceptions: Patient denies any auditory or visual hallucinations. Though content/process: There is evidence of delusional thought content and thought process is tangential and intermittently disorganized. Memory and concentration: Alert to person and place, concentration and memory grossly impaired for the purposes of this session. Judgment and insight: Poor STRENGTHS/WEAKNESSES: strength is that patient is resilient. Weakness is that patient has poor judgment and is impulsive; patient also has substance misuse and inconsistent adherence to treatment. INTELLECT: Average IMPRESSIONS: Schizoaffective disorder, bipolar type Cannabis Use disorder, severe Amphetamine use disorder, severe Hallucinogen use disoder, severe Cocain use disorder Nicotine dependence Non-adherence to treatment History of homelessness PLAN: -Patient is admitted under involuntary status to [facility] for stabilization of psychiatric symptoms and safety. Patient has not signed adult voluntary form and medication consent. A second certification was completed and along with petition will be filed for court. -Medications : - Fluophenazine Decanoate 50 mg IM is ordered as patient is overdue - Haldol 10 mg BID for refractory psychosis - Cogentin 1 mg BID -Ativan and Haldol PRN for agitation/aggression [-Patient will be counselled on substance abuse; presently unable to engage coherently around this -Internal Medicine consult to perform medical evaluation and physical. -NRT -nicotine patch ordered -SW on board for discharge planning. Encourage patient to participate in groups to work on coping skills. Will await deferral and court date.
[2024-07-25 15:47] LABS: Basophils # (A) 0.1 k/uL (0-0.2); Basophils % (A) 1 %; Eosinophils # (A) 0.3 k/uL (0-0.7); Eosinophils % (A) 5 %; HCT 45.7 % (39.0-53.0); HGB 14.5 gm/dL (13.0-17.5); Lymphocytes # (A) 1.7 k/uL (1.0-4.8); Lymphocytes % (A) 29 %; MCH 29.7 pg (25.0-35.0); MCHC 31.8 g/dL (31.0-37.0); MCV 93.4 fL (80.0-100.0); Monocytes # (A) 0.5 k/uL (0-1.0); Monocytes % (A) 9 %; Neutrophils # (A) 3.2 k/uL (1.3-7.7); Neutrophils % (A) 54 %; Platelet Count 249 k/uL (150-450); RDW 13.8 % (11.5-15.5)
[2024-07-25] MEDS: fluPHENAZine DECANOATE 25 MG/ML 5ML MDV IM ONE (16:13)
[2024-07-25 16:44] LABS: ALT 215 U/L (4-49); AST 94 U/L (17-59); African American GFR (CKD) >90 (>60 ml/min/1.73 sqM); Albumin 3.6 g/dL (3.5-5.0); Alkaline Phosphatase 79 U/L (38-126); Anion Gap 3 mmol/L; Blood Urea Nitrogen 20 mg/dL (9-20); Calcium 9.1 mg/dL (8.4-10.2); Carbon Dioxide 23 mmol/L (22-30); Chloride 112 mmol/L (98-107); Glucose 79 mg/dL (74-99); Non-African American GFR(CKD) >90 (>60 ml/min/1.73 sqM); Potassium 3.9 mmol/L (3.5-5.1); Sodium 138 mmol/L (137-145); Total Bilirubin 0.7 mg/dL (0.2-1.3); Total Protein 6.5 g/dL (6.3-8.2)
--- NOTE | 2024-07-26 15:11 | P.PN ---
Progress Note - Text Interval history: Patient was seen coming out of his room and was agreeable to speak with parts data writer as long as we talked in the hallway at the nurse's station. When asked how he's doing he stated "I'm not sure. I don't know." He went on to say "don't worry about me" and other statements that were difficult to understand..."God hears all things." He mentioned a plan to be "released by Saturday, so I can go to rehab." When asked where he's planning to go, he stated "that's my secret" and gestured with his finger over his lips. At this time patient denies any suicidal or homicidal ideations intent or plan. Denies any auditory or visual hallucinations, stated "don't worry about that." Patient denies any side effects from the medications and has been compliant with meds. Mental status exam: General Appearance: Patient appears to be stated age is alert, directable, and cooperative. Poor hygiene/grooming. Behavior: Psychomotor agitation is present. Frequently walking the halls and moving quickly. Patient is minimally cooperative and challenging to redirect. Speech: Patient's speech is mostly fluent and rapid. Mood/Affect: Mood is improving mildly, affect is congruent and constricted. Suicidality/Homicidality: Patient denies having any suicidal or homicidal ideation intent or plan. Perceptions: Patient denies any auditory or visual hallucinations. Though content/process: There is evidence of delusional thought content and thought process is tangential, loosely associated, and perseverative. Memory and concentration: oriented to person and place, grossly intact for the purposes of this session Judgment and insight: poor IMPRESSIONS: Schizoaffective disorder, bipolar type Cannabis Use disorder, severe Amphetamine use disorder, severe Hallucinogen use disorder, severe Cocain use disorder Nicotine dependence Non-adherence to treatment History of homelessness Plan: -Patient is admitted under involuntary status to [facility] for stabilization of psychiatric symptoms and safety. Patient has not signed adult voluntary form and medication consent. A second certification was completed and along with petition will be filed for court. -Medications : - Fluphenazine Decanoate 50 mg IM administered on 07/25/24 - Haldol 10 mg BID for refractory psychosis - Cogentin 1 mg BID - Propranolol 20 mg BID for akathisia -Ativan and Haldol PRN for agitation/aggression -Patient will be counselled on substance abuse; presently unable to engage coherently around this -NRT -nicotine patch ordered -SW to support discharge planning. Encourage patient to participate in groups to work on coping skills. Will await deferral and court date.
--- NOTE | 2024-07-27 04:47 | P.PN ---
Progress Note - Text Progress Note Date: 07/26/24 Attempted to see the patient in the [facility] on 07/26 at 2100. Informed by the [facility] RN that the patient is currently inappropriate for evaluation as he is actively psychotic and difficult to redirect.
[2024-07-27] MEDS: haloperidoL 5 MG TAB PO PRN (12:03)
--- NOTE | 2024-07-27 12:14 | P.PN ---
Progress Note - Text Progress Note Date: 07/27/24 Interval History: Patient was seen wandering the hallways and was directable and agreeable to sp eak with bond writer in the sun. He states he is feeling "much better" today and that he wishes to be discharged in 1-2 days to go to rehab. Patient states that he is homeless and he has not made any calls to any rehab facilities. He reports upset stomach but otherwise is tolerating his medications well. Patient appeared internally preoccupied during encounter. Attempted to discuss his substance use however patient was not amenable to this. Patient reportedly has a history of psychedelic use and his UDS was positive for amphetamines. Staff noted patient appeared bizarre in his behaviors. At this time patient denies any suicidal or homicidal ideations, intent or plan. Patient has been compliant with meds. Mental Status Exam: General Appearance: Patient appears to be older than stated age is alert, directable, and cooperative. Behavior: There is evidence of psychomotor agitation as patient is seen walking the halls however is partially cooperative. Speech: Patient's speech is fluent and nonpressured. Mood/Affect: Mood is improving mildly, affect is congruent and constricted. Suicidality/Homicidality: Patient denies having any suicidal or homicidal ideation intent or plan. Perceptions: Patient denies any visual hallucinations however he was seen internally preoccupied Though content/process: There is no overt evidence of any delusional thought content and thought process is linear superficially. Memory and concentration: AOX3, grossly intact for the purposes of this session Judgment and insight: Chronically poor however improving mildly Assessment Schizoaffective disorder, bipolar type Rule out substance-induced psychosis Cannabis use disorder Cocaine use disorder Hallucinogen use disorder Nicotine dependence Plan: -Patient continues to meet criteria for inpatient psychiatric admission for symptom stabilization and safety. Patient has not signed adult voluntary form and medication consent and was placed in patient's chart. -Medications: Prolixin decanoate 50 mg IM every 2 weeks, last given on 07/25 and next due on 08/08. Continue Haldol 10 mg twice daily for psychosis with plan to transition to DIMAS in the upcoming days given his history of nonadherence, Cogentin 1 mg twice daily for EPS, propranolol 20 mg twice daily for EPS -When necessary Ativan and Haldol for agitation/aggression. -Labs: Reviewed -NRT -nicotine patch -SW on board for discharge planning. Encouraged the patient to participate in milieu. Currently awaiting deferral with insurance defense attorney and court date.
[2024-07-28] MEDS: LORazepam 1 MG TAB PO PRN (09:24)
--- NOTE | 2024-07-28 10:19 | P.PN ---
Progress Note - Text Progress Note Date: 07/28/24 Interval History: Patient was seen wandering the hallways and was directable and agreeable to sp eak with rfp writer in the sun. He states feeling better today however states his imagination has been talking. Patient displays bizarre behaviors, often seen pacing the sun responding internally. He reports poor sleep however does not want any medications to help with this. He became upset when told he will not be discharged soon as he is here involuntarily and needs to speak to a advertising sales executive first. Patient began yelling "f you" and ended up receiving as needed Ativan for his behaviors however he returned and apologized stating he would never harm a woman. Patient denies any side effects from the medications and has been compliant with meds. Mental Status Exam: General Appearance: Patient appears to be stated age is alert, directable, and cooperative. Behavior: There is evidence of psychomotor restlessness as patient is seen pacing the halls Speech: Patient's speech is fluent and fast rate, nonpressured. Mood/Affect: Mood is improving mildly, affect is congruent and labile. Suicidality/Homicidality: Patient denies having any suicidal or homicidal ideation intent or plan. Perceptions: Patient denies any visual hallucinations however appears internally preoccupied and is seen talking to himself Though content/process: There is evidence of disorganization of thoughts with bizarre behaviors Memory and concentration: AOX3, grossly intact for the purposes of this session Judgment and insight: Chronically poor improving mildly Assessment Schizoaffective disorder, bipolar type Rule out substance-induced psychosis Cannabis use disorder Cocaine use disorder Hallucinogen use disorder Nicotine dependence Nonadherence with medications Plan: -Patient continues to meet criteria for inpatient psychiatric admission for symptom stabilization and safety. Patient has not signed adult voluntary form and medication consent and was placed in patient's chart. -Medications: Increase Haldol to 10 mg daily and 15 mg at bedtime for psychosis with a plan to transition to DIMAS in the upcoming days given his history of nonadherence. Start trazodone 50 mg at bedtime for sleep. Continue Prolixin decanoate 50 mg IM every 2 weeks, last given on 07/25 and next due on 08/08, propranolol 20 mg twice daily for EPS and Cogentin 1 mg twice daily for EPS -When necessary Ativan and Haldol for agitation/aggression. -Labs: Reviewed -NRT -nicotine patch -SW on board for discharge planning. Encouraged the patient to participate in milieu. Currently awaiting deferral with workers compensation attorney and court date.
[2024-07-28] MEDS: traZODone HCL 50 MG TAB PO SCH (20:54)
[2024-07-28] MEDS: haloperidoL 5 MG TAB PO SCH (20:55)
[2024-07-29] MEDS: haloperidoL 5 MG TAB PO SCH (09:35)
--- NOTE | 2024-07-29 11:27 | P.PN ---
Progress Note - Text Progress Note Date: 07/29/24 Interval History: Patient was seen laying in bed and was directable and agreeable to speak with service writer in his room. He states feeling "tired" however reports sleeping last night. Patient required as needed Ativan last night due to agitation related to the voices however he was not amenable to talk about them today but did deny any auditory hallucinations at this time. He states "the voices are mine and not the doctors to worry about". Patient signed a deferral yesterday and this was explained in detail however patient states not liking [facility] and that it is difficult following with them. He became upset when told that he will receive the Haldol DEC shot today and told service writer to leave his room however he did approach service writer later on apologizing for his behaviors. At this time patient denies any suicidal or homicidal ideations, intent or plan. Patient denies any side effects from the medications and has been compliant with meds. Mental Status Exam: General Appearance: Patient appears to be stated age is initially fatigued but directable, and largely uncooperative. Behavior: Patient is calmly laying without any agitated behavior. Speech: Patient's speech is fluent and nonpressured. Mood/Affect: Mood is improving mildly, affect is congruent and labile. Suicidality/Homicidality: Patient denies having any suicidal or homicidal ideation intent or plan. Perceptions: Patient denies any visual hallucinations however did report hearing voices overnight but he denied them this morning Though content/process: There is evidence of disorganization of thoughts Memory and concentration: AOX3, grossly intact for the purposes of this session Judgment and insight: Improving mildly Assessment Schizoaffective disorder, bipolar type Rule out substance-induced psychosis Cannabis use disorder Cocaine use disorder Hallucinogen use disorder Nicotine dependence Nonadherent with medications Plan: -Patient continues to meet criteria for inpatient psychiatric admission for symptom stabilization and safety. Patient has not signed adult voluntary form and medication consent and was placed in patient's chart. -Medications: Transition to Haldol decanoate, patient to receive 100 mg today and another 100 mg early next week, continue Haldol p.o. 10 mg daily and 15 mg at bedtime for psychosis, Prolixin decanoate 50 mg IM every 2 weeks, last given on 07/25 and next due on 08/08, propranolol 20 mg twice daily for EPS and Cogentin 1 mg twice daily for EPS -When necessary Ativan and Haldol for agitation/aggression. -Labs: Reviewed -NRT -nicotine patch -SW on board for discharge planning. Encouraged the patient to participate in milieu. Patient signed a deferral yesterday, anticipate discharge early next week after receiving second loading dose of Haldol DEC
[2024-07-29] MEDS ORDERED: HALOPERIDOL DECANOATE 100 MG/ML 1 ML VIAL IM ONE (14:00)
[2024-07-29] MEDS: DIVALPROEX 250 MG TABLET.DR PO SCH (20:55)
[2024-07-29] MEDS: OLANZapine 10 MG TAB PO SCH (20:55)
--- NOTE | 2024-07-30 10:35 | P.PN ---
Progress Note - Text Progress Note Date: 07/30/24 Interval History: Patient was seen wandering the hallways and was directable and agreeable to sp [place] with ticket writer in the sun. Patient continues to be internally preoccupied and largely uncooperative with interview, often walking away however will return and apologize afterwards. Has been adherent with medications however does report experiencing some restless legs overnight but is not interested in starting Requip for this stating he does not like psychotropic medications and does not want to stay on them. He request to be discharged. Patient has been sleeping more overnight however requires as needed Ativan for anxiety. Mental Status Exam: General Appearance: Patient appears to be stated age is alert, and largely uncooperative. Behavior: There is evidence of psychomotor restlessness Speech: Patient's speech is fluent and nonpressured. Mood/Affect: Mood is improving mildly, affect is congruent and labile. Suicidality/Homicidality: Patient denies having any suicidal or homicidal ideation intent or plan. Perceptions: Patient denies any visual hallucinations however he does appear internally preoccupied Though content/process: There is disorganization and thoughts Memory and concentration: AOX3, grossly intact for the purposes of this session Judgment and insight: Improving mildly Assessment Schizoaffective disorder, bipolar type Rule out substance-induced psychosis Cannabis use disorder Cocaine use disorder Hallucinogen use disorder Nicotine dependence Nonadherent with medications Plan: -Patient continues to meet criteria for inpatient psychiatric admission for symptom stabilization and safety. Patient has not signed adult voluntary form and medication consent and was placed in patient's chart. -Medications: Discontinue Haldol 10 mg daily and continue Depakote 250 mg twice daily for mood stabilization with a plan to increase this tomorrow, Zyprexa 10 mg at bedtime for psychosis, propranolol 20 mg twice daily and Cogentin 1 mg twice daily for EPS, Prolixin decanoate 50 mg IM every 2 weeks, last given on 07/25 and next due on 08/08 -When necessary Ativan and Haldol for agitation/aggression. -Labs: Reviewed -NRT -nicotine patch -SW on board for discharge planning. Encouraged the patient to participate in milieu. Patient deferred on 07/28/2024, anticipate discharge early next week pending stabilization and irritability and psychosis
[2024-07-31] MEDS ORDERED: BENZOCAINE/MENTHOL LOZENG 1 EACH LOZENGE MUCOUS MEM PRN (11:23)
--- NOTE | 2024-07-31 11:44 | P.PN ---
Progress Note - Text Progress Note Date: 07/31/24 Interval History: Patient was seen laying in bed and was directable and agreeable to speak with loan underwriter in the room. He reports feeling tired which she feels like is due to the Zyprexa however patient did request and received Ativan PO overnight as well. Patient states he will file a lawsuit since he is still here and request to be discharged. Patient did state he prefers to be on Zyprexa and Depakote instead of Haldol however does not wish to take any of his medical medications stating "my heart is going to explode anyway". He continues to display poor insight stating he ideally does not want to take medications however he is willing to comply while here. He reports missing his breakfast due to excess sedation. He continues to be internally preoccupied. Patient has been compliant with meds. Mental Status Exam: General Appearance: Patient appears to be stated age is alert, and semi cooperative. Behavior: Patient is calmly laying without any agitated behavior. Speech: Patient's speech is fluent and nonpressured. Mood/Affect: Mood is improving mildly, affect is congruent and labile. Suicidality/Homicidality: Patient denies having any suicidal or homicidal ideation intent or plan. Perceptions: Patient denies any visual hallucinations however does appear internally preoccupied Though content/process: There is evidence of disorganization in thoughts with persecutory delusions Memory and concentration: AOX3, grossly intact for the purposes of this session Judgment and insight: Improving mildly Assessment Schizoaffective disorder, bipolar type Rule out substance-induced psychosis Cannabis use disorder Cocaine use disorder Hallucinogen use disorder Nicotine dependence Nonadherent with medications Plan: -Patient continues to meet criteria for inpatient psychiatric admission for symptom stabilization and safety. Patient has not signed adult voluntary form and medication consent and was placed in patient's chart. -Medications: Increase Depakote to 500 mg twice daily for mood stabilization, continue Zyprexa 10 mg at bedtime for psychosis, propranolol 20 mg twice daily and Cogentin 1 mg twice daily for EPS, Prolixin decanoate 50 mg IM every 2 weeks, last given on 07/25 and next due on 08/08 -When necessary Ativan and Haldol for agitation/aggression. -Labs: Reviewed -NRT -nicotine patch -SW on board for discharge planning. Encouraged the patient to participate in milieu. Patient signed a deferral on 07/28/2024. Anticipate discharge early- mid next week pending stabilization and irritability and psychosis
[2024-07-31] MEDS: DIVALPROEX 500 MG TABLET.DR PO SCH (21:16)
--- NOTE | 2024-08-01 11:37 | P.PN ---
Progress Note - Text Progress Note Date: 08/01/24 Interval history: Patient was seen wandering the hallways and was directable and agreeable to s [place] with resume writer. Patient was reading a paper. He appeared to be fairly friendly with resume writer today pleasant. He continues to have mild disorganization in his thought process, asked resume writer if he had any medications "to help drain the brain". Illogical in thought process and content. Denies any other problems at this time. Claims that he slept fairly last night. Has a fair appetite. At this time patient denies any suicidal or homicidal ideations intent or plan. Denies any Auditory or visual hallucinations. Patient denies any side effects from the medications and has been compliant with meds. Mental status exam: General Appearance: Patient appears to be thin, balding, several tattoos, stated age is alert, directable, and cooperative. Behavior: No agitated behavior. Patient is calm and directable bizarre at times, improving Speech: Patient's speech is fluent and nonpressured. Mood/Affect: Mood is improving mildly, affect is congruent and constricted. Suicidality/Homicidality: Patient denies having any suicidal or homicidal ideation intent or plan. Perceptions: Patient denies any auditory or visual hallucinations. Though content/process: Illogical, loose associations. Memory and concentration: AOX3, grossly intact for the purposes of this session Judgment and insight: Chronically poor, improving mildly Assessment/Plan: Continue with current diagnosis. Patient continues to meet criteria for inpatient psychiatric admission for symptom stabilization and safety. Patient will be maintained on current psychotropic medication regimen. Monitor for medication compliance and for any psychotropic medication side effects. Will continue to monitor ongoing response to treatment. Encouraged participation in milieu.
--- NOTE | 2024-08-02 10:14 | P.PN ---
Progress Note - Text Progress Note Date: 08/02/24 Interval history: Patient was seen wandering the hallways and was directable and agreeable to s peak with health underwriter. Patient did appear to be fairly tired today. He was fairly concrete with his answers. He did make some bizarre statements however was not agitated or aggressive today. He appeared to be fairly friendly with health underwriter today pleasant. He continues to have mild disorganization in his thought process. Claims that he slept fairly last night. Has a fair appetite. At this time patient denies any suicidal or homicidal ideations intent or plan. Denies any Auditory or visual hallucinations. Patient denies any side effects from the medications and has been compliant with meds. Mental status exam: General Appearance: Patient appears to be thin, balding, several tattoos, stated age is alert, directable, and cooperative. Behavior: No agitated behavior. Patient is calm and directable bizarre at times, improving Speech: Patient's speech is fluent and nonpressured. Mood/Affect: Mood is improving mildly, affect is congruent and constricted. Suicidality/Homicidality: Patient denies having any suicidal or homicidal ideation intent or plan. Perceptions: Patient denies any auditory or visual hallucinations. Though content/process: Illogical, loose associations. [place] Memory and concentration: AOX3, grossly intact for the purposes of this session Judgment and insight: Chronically poor, improving mildly Assessment/Plan: Continue with current diagnosis. Patient continues to meet criteria for inpatient psychiatric admission for symptom stabilization and safety. Patient will be maintained on current psychotropic medication regimen. Monitor for medication compliance and for any psychotropic medication side effects. Will continue to monitor ongoing response to treatment. Encouraged participation in milieu.
[2024-08-03 07:13] VITALS: BP 107/73; PULSE 53; RESP 16; TEMP 98.3
--- NOTE | 2024-08-03 11:51 | P.PN ---
Progress Note - Text Progress Note Date: 08/03/24 Interval History: Patient was seen laying in bed and was directable and agreeable to speak with director underwriter sales in his room. Patient expressed feeling tired. He has been adherent with his medications and is notably less irritable and responding less internally than previous encounters. He reports experiencing some restless legs overnight however is not amenable to starting Requip, stating he is already on Cogentin. He reports stability in terms of his auditory hallucinations. He states he will be discharged to a motel as he is homeless however his guardian pays for this. He states he has not talked to his guardian however he plans on contacting them today. At this time patient denies any suicidal or homicidal ideations, intent or plan. Patient denies any visual hallucinations and denies any paranoia or delusions. Patient denies any side effects from the medications and has been compliant with meds. Mental Status Exam: General Appearance: Patient appears to be stated age is alert, directable, and cooperative. Behavior: Patient is calmly laying without any agitated behavior. He is notably less irritable today Speech: Patient's speech is fluent and nonpressured. Mood/Affect: Mood is improving mildly, affect is congruent and constricted. Suicidality/Homicidality: Patient denies having any suicidal or homicidal ideation intent or plan. Perceptions: Patient denies any visual hallucinations however reports auditory hallucinations, chronic Though content/process: There is evidence of disorganization in thought process Memory and concentration: AOX3, grossly intact for the purposes of this session Judgment and insight: Chronically poor however improving mildly Assessment Schizoaffective disorder, bipolar type Rule out substance-induced psychosis Cannabis use disorder Cocaine use disorder Hallucinogen use disorder Nicotine dependence Nonadherent with medications Plan: -Patient continues to meet criteria for inpatient psychiatric admission for symptom stabilization and safety. Patient has not signed adult voluntary form and medication consent and was placed in patient's chart. -Medications: Continue Zyprexa 10 mg at bedtime for psychosis, Depakote 500 mg twice daily for mood stabilization, Prolixin decanoate 50 mg IM every 2 weeks, last given on 07/25 and next due on 08/08 -When necessary Ativan and Haldol for agitation/aggression. -Labs: Depakote level ordered for tomorrow -NRT -nicotine patch -SW on board for discharge planning. Encouraged the patient to participate in milieu. Patient signed deferral. Anticipate discharge to [facility] tomorrow
--- NOTE | 2024-08-03 13:07 | P.MDCNMH ---
History of Present Illness H&P Date: 08/03/24 Patient is a 48-year-old male with history of IV drug use, hep C, polysubstance use, nicotine dependence psychosis currently admitted to behavioral health unit. [facility] physicians consulted for medical management. Vital signs reviewed, within normal limits. WBC 6, hemoglobin 14.5, creatinine 0.83, AST 94, ALT 258, TSH 0.315. Currently denies any chest pain, shortness of breath, abdominal pain, urinary or bowel complaints. Pertinent positives and negatives as discussed in HPI, a complete review of systems was performed and all other systems are negative. Patient seen and examined at bedside. Vital signs reviewed General: nontoxic, no distress, appears at stated age Derm: warm, dry Head: atraumatic, normocephalic, symmetric Eyes: EOMI, no lid lag, anicteric sclera, pupils equal round reactive to light ENT: Nose and ears atraumatic Neck: No thyromegaly, supple Mouth: no lip lesion, mucus membranes moist Cardiovascular: S1S2 reg, no murmur, no edema Lungs: clear to auscultation bilateral, no rhonchi, no rales, no wheeze, no accessory muscle use Abdominal: soft, nontender to palpation, no guarding, no appreciable organomegaly Ext: no gross muscle atrophy, muscle strength muscle strength 5 out of 5 in all 4 extremities, no contractures Neuro: CN II-XII grossly intact Psych: Alert, oriented, appropriate affect Assessment/Plan: Active: Transaminitis History of Hep C infection IV drug use Polysubstance use -Hep C quantitation and IgG antibody pending Low TSH -Free T4 ordered -Patient is euthyroid Dyspepsia -On Protonix 40 twice daily Rest of the psychiatric care per primary Thank you for allowing us to participate in the care of this pleasant patient. Do not hesitate to contact us with questions. Someone can be reached from the [facility] hospitalist group all hours of the day at [phone] or via [employer]. Past Medical History Past Medical History: GERD/Reflux, Musculoskeletal Disorder, Seizure Disorder Additional Past Medical History / Comment(s): scoliosis, herpes, hiatal hernia, migraines, Hepatitis C History of Any Multi-Drug Resistant Organisms: None Reported Past Surgical History: No Surgical Hx Reported Additional Past Surgical History / Comment(s): EGD Past Anesthesia/Blood Transfusion Reactions: No Reported Reaction Smoking Status: Current every day smoker - Past Family History Mother History Unknown: Yes Additional Family Medical History / Comment(s): from suicide attempt Father History Unknown: Yes Additional Family Medical History / Comment(s): Reports that he is currently in the stages of dying- but wont clarify further. Inititally the patient stated his father was . Medications and Allergies Home Medications Medication Instructions Recorded Confirmed Type Benztropine Mesylate [Cogentin] 1 mg PO BID 14 Days #28 tab 06/24/24 07/24/24 Rx Pantoprazole [Protonix] 40 mg PO AC-BID 14 Days #28 tab 06/24/24 07/24/24 Rx Propranolol [Inderal] 20 mg PO BID 14 Days #28 tab 06/24/24 07/24/24 Rx haloperidoL [Haloperidol] 10 mg PO BID 14 Days #28 tab 06/24/24 07/24/24 Rx fluPHENAZine decanoate [Prolixin 50 mg IM [id number] 07/24/24 07/24/24 History Decanoate] Allergies Allergy/AdvReac Type Severity Reaction Status Date / Time cat dander Allergy Itching Verified 07/24/24 12:22 oxcarbazepine AdvReac seizures Verified 07/24/24 12:22 [From Trileptal] paliperidone [From Invega] AdvReac delusional Verified 07/24/24 12:22 risperidone [From Risperdal] AdvReac seizures Verified 07/24/24 12:22 Physical Exam Vitals: Vital Signs Temp Pulse Resp BP Pulse Ox 08/03/24 06:41 98.3 F 53 L 16 107/73 98 08/02/24 22:05 81 119/84 98 Cranial Nerve Examination - Cranial Nerves Cranial Nerve II- Optic: Intact Cranial Nerve III- Oculomotor: Intact Cranial Nerve IV- Trochlear: Intact Cranial Nerve V- Trigeminal: Intact Cranial Nerve - Abducens: Intact Cranial Nerve VII- Facial: Intact Cranial Nerve VIII- Auditory: Intact Cranial Nerve IX- Glossopharyngeal: Intact Cranial Nerve X- Vagus: Intact Cranial Nerve XI- Accessory: Intact Cranial Nerve XII- Hypoglossal: Intact Results CBC & Chem 7: 07/25/24 14:59 07/25/24 14:59
[2024-08-03 16:09] LABS: Hepatitis C IgG Antibody Reactive (Nonreactive)
--- NOTE | 2024-08-04 13:24 | P.DS ---
Providers Date of admission: 07/24/24 20:52 Expected date of discharge: 08/04/24 Attending physician: Padmaja Colvin MD Consults: 07/24/24 21:19 Consult Physician Routine Consulting Provider: Geeta Thomason Consult Reason/Comments: Medical managment Do you want consulting provider notified?: Yes Primary care physician: Stated None - Discharge Diagnosis(es) (1) Schizoaffective disorder, bipolar type Status: Acute Priority: High (2) Cannabis use disorder Status: Acute Priority: High (3) Cocaine use disorder Status: Acute Priority: High (4) Hallucinogenic mushrooms use disorder, severe Status: Acute Priority: High (5) Nicotine dependence Status: Acute Priority: Low Hospital Course: Admission HPI: Admission note was completed by Dr. Corbin "Presley Elizalde is a 48 year old male with a history of schizoaffective disorder, bipolar type, and multiple substance use disorders including (cannabis, amphetamine, cocaine, hallucinogens, and nicotine) who presented to the ER on 07/24/24 from [facility] on petition due to concern for psychosis. Per EPS: "Brought in via PD from [facility] on PET. Cl observed talking to themselves loudly and responding to internal stimuli, agitated, and reported aggressive. Cl presents tangential, disorganized, flight of ideas, ideas of reference, paranoid, agitated, disheveled, loose associations. Cl is animated in speech, laughing to self, pointing at different "people" in the room and has an intense affect throughout assessment. Cl reports "no" sleep in 3 days and " some appetite with meat from across the street store". Cl made various statements during the interview. i.e. " ACT they aren't the gods, I am telling Dad that brother is safe on the bus with our cousins who I love. They can't tell me where I am, I went to [employer], they know that I trip, I'll smoke when I can." When asked basic questions Cl consistently gave loose association answers and attempted to not answer questions several times." During today's visit, Mr. Elizalde was initially in bed and covered his head when greeted. When asked about the events leading to his admission he said he "needed to settle down" and was unable to elaborate further and proceeded to have various tangential thoughts. He cited having "a couple of interruptions" last night which did disturb his sleep. He did describe his mood as "better" today than when he came to the hospital yesterday. He explained, "I would like to feel happy all the time.". He denied experiencing depression or persistent sadness. As we were talking he abruptly got up from bed and walked out of his room into the hallway he started to become more irritable as attempts were made to ask other questions and engage further. He denied experiencing "anger or suicide" and did not answer any further questions coherently. He went on to talk about "people pissing in my daughter's Wheaties" and "one senior copywriter is to him". He did state that he was getting agitated and did not want to talk further. We ended the conversation at that time." Hospital course: Upon admission to the unit patient was admitted involuntarily on a petition and certificate and a second certificate was completed and faxed to the courts. Patient ended up signing a deferral with the stonework tracer and agreeing to treatment. Patient notably was irritable, often seen pacing and responding to internal stimuli at the beginning however once treatment was initiated he was more calm and cooperative however never attended groups. Patient was compliant with the medications and denied any side effects throughout hospital course. Patient was started on Prolixin decanoate 50 mg IM every 2 weeks, last given on 07/25 and next due on 08/08. She was also started on Haldol 10 mg twice daily however given concerns about NMS and TD this was switched to Zyprexa and this was increased to 10 mg at bedtime for psychosis, Depakote increased to 500 mg twice daily for mood stabilization. Patient was also seen by medical team for history and physical exam. Repeat hepatitis C lab was ordered which was reactive patient was encouraged to follow-up with his PCP for treatment. Throughout the course of the hospitalization patient gradually improved with regards to mood, anxiety, sleep and returned back to their baseline level of functioning. On the day of discharge patient denied any suicidal or homicidal ideations intent or plan denied any auditory or visual hallucinations. The patient denied any access to guns or weapons. Patient denied any paranoia and did not endorse any delusions. Patient does have a significant history of substance abuse and was counseled on abstaining from all substances including alcohol and marijuana. Patient was offered however declined inpatient substance-abuse rehab. Patient was also counseled on the medications and need for regular compliance and was encouraged to follow-up with their outpatient appointment for mental health and also for primary care. Patient to be discharged back to [facility] with [facility] follow- up. Patient was reminded of deferral status and to take his medications and follow-up with outpatient to which he agreed. Mental status exam: General Appearance: Patient appears to be stated age is alert, pleasant, and cooperative. Patient is in no acute distress and has improved hygiene and grooming Behavior: Patient is calmly seated without any agitated behavior. Less irritable than previously Speech: Patient's speech is fluent and nonpressured. Mood/Affect: Patient reports their mood is "fine thanks", affect is congruent and constricted Suicidality/Homicidality: Patient denies having any suicidal or homicidal ideation intent or plan. Perceptions: Patient denies any auditory or visual hallucinations. He does appear internally preoccupied at times, chronic Though content/process: There is disorganization in thoughts however goal oriented Memory and concentration: AOX3, grossly intact for the purposes of this session. Can spell "WORLD" backwards correctly. Judgment and insight: Chronically poor, however has improved with guarded prognosis Impression: Schizoaffective disorder, bipolar type Rule out substance-induced psychosis Cannabis use disorder Cocaine use disorder Hallucinogen use disorder Nicotine dependence Nonadherent with medications Plan: -Continue with discharge today as patient has improved and stabilized psychiatrically and is not currently an imminent threat to themself and/or others. Patient will remain at chronically elevated risk for harm to self and/or others due to their impulsivity and substance abuse. -Continue medications: Prolixin decanoate 50 mg IM every 2 weeks, last given on 07/25 and next due on 08/08. Depakote 500 mg twice daily (level today was 85.6), Zyprexa 10 mg at bedtime -Patient was counseled on the need for medication compliance and appropriate follow-up at mental health and also primary care for medical issues. Patient verbalized understanding and agreed. -Social work to help coordinate patients discharge today. also to ensure safe home environment that guns/weapons are either removed from the home or locked away. Social work also to arrange for patients follow up appointments with [facility] for psychiatric care along with follow up with primary care provider. -Patient counseled on abstaining from recreational drugs and marijuana and alcohol. Was informed/educated on the adverse effects on their physical and mental health. Patient verbally agreed and understood. Patient was offered substance abuse treatment however declined at this time. -Patient was instructed to return to the hospital or seek immediate medical care if their psychiatric or medical symptoms do worsen or reoccur. Abnormal Labs 07/24/24 07/25/24 08/03/24 12:16 14:59 13:23 Chloride 112 H AST 94 H ALT 215 H TSH 0.315 L Ur Amphetamines Screen Detected H U Marijuana (THC) Screen Detected H Hep C IgG Ab Reactive A Vital Signs Temp 98.3 F 08/03/24 06:41 Pulse 53 L 08/03/24 06:41 Resp 16 08/03/24 06:41 BP 107/73 08/03/24 06:41 Pulse Ox 98 08/03/24 06:41 FiO2 Allergies Allergy/AdvReac Type Severity Reaction Status Date / Time cat dander Allergy Itching Verified 07/24/24 12:22 oxcarbazepine AdvReac seizures Verified 07/24/24 12:22 [From Trileptal] paliperidone [From Invega] AdvReac delusional Verified 07/24/24 12:22 risperidone [From Risperdal] AdvReac seizures Verified 07/24/24 12:22 Patient Condition at Discharge: Stable Plan - Discharge Summary Discharge Rx Participant: No New Discharge Prescriptions: New Benztropine Mesylate [Cogentin] 1 mg PO BID 30 Days #60 tab Divalproex [Depakote] 500 mg PO BID 30 Days #60 tab OLANZapine [ZyPREXA] 10 mg PO HS 30 Days #30 tab traZODone HCL [Desyrel] 50 mg PO HS 30 Days #30 tab Nicotine 14Mg/24Hr Patch [Habitrol] 1 patch TRANSDERM DAILY patch Propranolol [Inderal] 20 mg PO BID 30 Days #60 tab Pantoprazole [Protonix] 40 mg PO AC-BID 30 Days #30 tab Continue Benztropine Mesylate [Cogentin] 1 mg PO BID 14 Days #28 tab Propranolol [Inderal] 20 mg PO BID 14 Days #28 tab Pantoprazole [Protonix] 40 mg PO AC-BID 14 Days #28 tab fluPHENAZine decanoate [Prolixin Decanoate] 50 mg IM [id number] 30 Days #1 ml Discontinued haloperidoL [Haloperidol] 10 mg PO BID 14 Days #28 tab Discharge Medication List Benztropine Mesylate [Cogentin] 1 mg PO BID 14 Days #28 tab 06/24/24 [Rx] Pantoprazole [Protonix] 40 mg PO AC-BID 14 Days #28 tab 06/24/24 [Rx] Propranolol [Inderal] 20 mg PO BID 14 Days #28 tab 06/24/24 [Rx] Benztropine Mesylate [Cogentin] 1 mg PO BID 30 Days #60 tab 08/04/24 [Rx] Divalproex [Depakote] 500 mg PO BID 30 Days #60 tab 08/04/24 [Rx] Nicotine 14Mg/24Hr Patch [Habitrol] 1 patch TRANSDERM DAILY patch 08/04/24 [Rx] OLANZapine [ZyPREXA] 10 mg PO HS 30 Days #30 tab 08/04/24 [Rx] Pantoprazole [Protonix] 40 mg PO AC-BID 30 Days #30 tab 08/04/24 [Rx] Propranolol [Inderal] 20 mg PO BID 30 Days #60 tab 08/04/24 [Rx] fluPHENAZine decanoate [Prolixin Decanoate] 50 mg IM [id number] 30 Days #1 ml 08/04/24 [Rx] traZODone HCL [Desyrel] 50 mg PO HS 30 Days #30 tab 08/04/24 [Rx] Follow up Appointment(s)/Referral(s): [facility] [Outside] - 08/05/24 3:45 pm (08/05 at 3:45pm Dylan Cordoba 08/11 at 10:30am Annalise Justni NP) [facility] [NON-STAFF] - 1 Week Patient Instructions/Handouts: How to Stop Smoking (DC), Schizoaffective Disorder (GEN) Activity/Diet/Wound Care/Special Instructions: [facility] Discharge Info Avoid the use of street drugs and alcohol. Take all medications as prescribed. When you are in need of refills on your medications, please contact your outpatient medical provider and/or outpatient psychiatrist. Please go to your scheduled outpatient appointments for aftercare treatment. If symptoms return or become worse, call the crisis line at or and/or visit the nearest emergency room for assistance. National Suicide and Crisis Lifeline - call or text 988. Discharge Disposition: HOME SELF-CARE
== END 2024-08-04 12:00 | disposition home or self-care (01) | DRG 885 ==
LOC: EC 11:35 → 3MHU 20:52
PROVIDERS: ADMIT Psychiatry & Neurology Psychiatry; ATTEND Psychiatry & Neurology Psychiatry
DX: F25.0 Schizoaffective disorder, bipolar type (principal); Z59.00 Homelessness unspecified; Z91.148 Patient's other noncompliance with medication regimen for other reason; F17.200 Nicotine dependence, unspecified, uncomplicated; F41.9 Anxiety disorder, unspecified; G25.81 Restless legs syndrome; G40.909 Epilepsy, unspecified, not intractable, without status epilepticus; F15.99 Other stimulant use, unspecified with unspecified stimulant-induced disorder; F12.99 Cannabis use, unspecified with unspecified cannabis-induced disorder; F14.99 Cocaine use, unspecified with unspecified cocaine-induced disorder; F16.99 Hallucinogen use, unspecified with unspecified hallucinogen-induced disorder; M41.9 Scoliosis, unspecified; K21.9 Gastro-esophageal reflux disease without esophagitis; Z86.19 Personal history of other infectious and parasitic diseases; Z88.8 Allergy status to other drugs, medicaments and biological substances
CPT/HCPCS: 80053; 80164; 80306; 82075; 84443; 85025; 86803; 87522; 87636

== ENCOUNTER 2024-09-01 06:04 | Emergency (ER) | payer MEDICARE ==
--- NOTE | 2024-09-01 06:14 | ED ---
Psych HPI - General Stated Complaint: Mental health Time Seen by Provider: 09/01/24 06:06 Source: patient, RN notes reviewed Mode of arrival: ambulatory Limitations: no limitations - History of Present Illness Initial Comments: 48-year-old male presents emergency department chief complaint of needing psychiatric evaluation. Patient is well-known to the emergency department. Robert wallace has a long history of drug abuse. Patient states that he needs to talk to psych because he feels unsafe he denies being suicidal or homicidal at this time. Patient states he has been using LSD and mushrooms. Patient denies any self-harm denies any daily prescription medications at this time he states they make him worse. - Related Data Previous Rx's Medication Instructions Recorded Propranolol [Inderal] 20 mg PO BID 14 Days #28 tab 06/24/24 Divalproex [Depakote] 500 mg PO BID 30 Days #60 tab 08/04/24 Nicotine 14Mg/24Hr Patch [Habitrol] 1 patch TRANSDERM DAILY patch 08/04/24 OLANZapine [ZyPREXA] 10 mg PO HS 30 Days #30 tab 08/04/24 Pantoprazole [Protonix] 40 mg PO AC-BID 30 Days #30 tab 08/04/24 fluPHENAZine decanoate [Prolixin 50 mg IM [id number] 30 Days #1 ml 08/04/24 Decanoate] traZODone HCL [Desyrel] 50 mg PO HS 30 Days #30 tab 08/04/24 Allergies Allergy/AdvReac Type Severity Reaction Status Date / Time cat dander Allergy Itching Verified 09/01/24 16:28 oxcarbazepine AdvReac seizures Verified 09/01/24 16:28 [From Trileptal] paliperidone [From Invega] AdvReac delusional Verified 09/01/24 16:28 risperidone [From Risperdal] AdvReac seizures Verified 09/01/24 16:28 Review of Systems ROS Statement: Those systems with pertinent positive or pertinent negative responses have been documented in the HPI. ROS Other: All systems not noted in ROS Statement are negative. Past Medical History Past Medical History: GERD/Reflux, Musculoskeletal Disorder, Seizure Disorder Additional Past Medical History / Comment(s): scoliosis, herpes, hiatal hernia, migraines, Hepatitis C History of Any Multi-Drug Resistant Organisms: None Reported Past Surgical History: No Surgical Hx Reported Additional Past Surgical History / Comment(s): EGD Past Anesthesia/Blood Transfusion Reactions: No Reported Reaction Smoking Status: Current every day smoker - Past Family History Mother History Unknown: Yes Additional Family Medical History / Comment(s): from suicide attempt Father History Unknown: Yes Additional Family Medical History / Comment(s): Reports that he is currently in the stages of dying- but wont clarify further. Inititally the patient stated his father was . General Exam Limitations: no limitations General appearance: alert, in no apparent distress, anxious Head exam: Present: atraumatic, normocephalic, normal inspection Eye exam: Present: normal appearance, PERRL, EOMI. Absent: scleral icterus, conjunctival injection, periorbital swelling ENT exam: Present: normal exam, normal oropharynx, mucous membranes moist Neck exam: Present: normal inspection, full ROM. Absent: tenderness, meningismus, lymphadenopathy Respiratory exam: Present: normal lung sounds bilaterally. Absent: respiratory distress, wheezes, rales, rhonchi, stridor Cardiovascular Exam: Present: regular rate, normal rhythm, normal heart sounds. Absent: systolic murmur, diastolic murmur, rubs, gallop, clicks GI/Abdominal exam: Present: soft, normal bowel sounds. Absent: distended, tenderness, guarding, rebound, rigid Neurological exam: Present: alert, oriented X3, CN II-XII intact Psychiatric exam: Present: anxious Skin exam: Present: warm, dry, intact, normal color. Absent: rash Course Vital Signs 09/01/24 06:05 Temperature 98 F Pulse Rate 127 H Respiratory 18 Rate Blood Pressure 152/83 O2 Sat by Pulse 97 Oximetry Medical Decision Making - Medical Decision Making Was pt. sent in by a medical professional or institution (, PA, NEUROLOGY TECHNOLOGIST, urgent care, hospital, or [facility]...) When possible be specific @ -No Did you speak to anyone other than the patient for history (EMS, parent, family, police, friend...)? What history was obtained from this source @ -No Did you review nursing and triage notes (agree or disagree)? Why? @ -I reviewed and agree with nursing and triage notes Were old charts reviewed (outside hosp., previous admission, EMS record, old EKG, old radiological studies, urgent care reports/EKG's, [facility] records)? Report findings @ -No old charts were reviewed Differential Diagnosis (chest pain, altered mental status, abdominal pain women, abdominal pain men, vaginal bleeding, weakness, fever, dyspnea, syncope, headache, dizziness, GI bleed, back pain, seizure, CVA, palpatations, mental health, musculoskeletal)? @ -Differential Mental Health Depression, anxiety, bipolar, psychosis, schizophrenia, borderline personality, situational depression, adjustment disorder, behavioral disorder, brain tumor, malingering, substance abuse, encephalopathy, medication reaction, dementia, hypothyroidism, degenerative neurologic disorder, lupus.... This is not meant to be all-inclusive list EKG interpreted by me (3pts min.). @ -None none X-rays interpreted by me (1pt min.). @ -None done CT interpreted by me (1pt min.). @ -None done U/S interpreted by me (1pt. min.). @ -None done What testing was considered but not performed or refused? (CT, X-rays, U/S, labs)? Why? @ -None What meds were considered but not given or refused? Why? @ -None Did you discuss the management of the patient with other professionals (professionals i.e. , PA, NEUROLOGY TECHNOLOGIST, lab, RT, psych nurse, social psychologist, program management analyst, teacher, escrow officer, director case)? Give summary @ -No Was smoking cessation discussed for >3mins.? @ -No Was critical care preformed (if so, how long)? @ -No Were there social determinants of health that impacted care today? How? (Homelessness, low income, unemployed, alcoholism, drug addiction, transportati on, low edu. Level, literacy, decrease access to med. care, shelter, rehab)? @ -No Was there de-escalation of care discussed even if they declined (Discuss DNR or withdrawal of care, Hospice)? DNR status @ -No What co-morbidities impacted this encounter? (DM, HTN, Smoking, COPD, CAD, Cancer, CVA, ARF, Chemo, Hep., AIDS, mental health diagnosis, sleep apnea, morbid obesity)? @ -None Was patient admitted / discharged? Hospital course, mention meds given and route, prescriptions, significant lab abnormalities, going to OR and other pertinent info. @ -Discharge patient did not want to wait any longer for EPS evaluation patient is not suicidal patient does have chronic schizophrenia, bipolar disorder patient is discharged Undiagnosed new problem with uncertain prognosis? @ -No Drug Therapy requiring intensive monitoring for toxicity (Heparin, Nitro, Insulin, Cardizem)? @ -No Were any procedures done? @ -No Diagnosis/symptom? @ -Schizophrenia Acute, or Chronic, or Acute on Chronic? @ -Acute Uncomplicated (without systemic symptoms) or Complicated (systemic symptoms)? @ -Uncomplicated Side effects of treatment? @ -No Exacerbation, Progression, or Severe Exacerbation? @ -No Poses a threat to life or bodily function? How? (Chest pain, [place], [place], pneumonia, PE, COPD, DKA, ARF, appy, cholecystitis, CVA, Diverticulitis, Homicidal, Suicidal, threat to staff... and all critical care pts) @ -No - Lab Data Lab Results 09/01/24 Range/Units 06:35 Urine Opiates Screen Not Detected (NotDetected) Ur Oxycodone Screen Not Detected (NotDetected) Urine Methadone Screen Not Detected (NotDetected) Ur Barbiturates Screen Not Detected (NotDetected) U Tricyclic Antidepress Not Detected (NotDetected) Ur Phencyclidine Scrn Not Detected (NotDetected) Ur Amphetamines Screen Not Detected (NotDetected) U Methamphetamines Scrn Not Detected (NotDetected) U Benzodiazepines Scrn Not Detected (NotDetected) Urine Cocaine Screen Not Detected (NotDetected) U Marijuana (THC) Screen Detected H (NotDetected) Disposition Clinical Impression: Chronic schizophrenia Disposition: HOME SELF-CARE Condition: Stable Is patient prescribed a controlled substance at d/c from ED?: No Referrals: [facility] [Primary Care Provider] - 1-2 days
[2024-09-01 06:15] VITALS: BP 152/83; PULSE 127; RESP 18; TEMP 98
[2024-09-01 07:13] LABS: Amphetamine Screen,Urine Not Detected (NotDetected); Barbiturate Screen,Urine Not Detected (NotDetected); Benzodiazepines Screen,Urine Not Detected (NotDetected); Cocaine Screen,Urine Not Detected (NotDetected); Methadone Screen, Urine Not Detected (NotDetected); Opiate Screen,Urine Not Detected (NotDetected); Oxycodone Screen, Urine Not Detected (NotDetected); Phencyclidine Screen,Urine Not Detected (NotDetected); Tricyclic Antidepressant,Urine Not Detected (NotDetected); Urn Cannabinoid Scrn Detected (NotDetected)
== END 2024-09-01 07:11 | disposition home or self-care (01) ==
LOC: EC 06:04
DX: F20.9 Schizophrenia, unspecified (principal); F17.200 Nicotine dependence, unspecified, uncomplicated; Z88.8 Allergy status to other drugs, medicaments and biological substances
CPT/HCPCS: 80306; 99283

== ENCOUNTER 2024-09-01 10:17 | Inpatient (IN) | payer MEDICARE, MEDICAID ==
--- NOTE | 2024-09-01 11:51 | ED ---
Psych HPI - General Chief Complaint: Psychiatric Symptoms Stated Complaint: mental health Time Seen by Provider: 09/01/24 11:48 Source: patient, RN notes reviewed Mode of arrival: ambulatory - History of Present Illness Initial Comments: 48-year-old male with history of schizoaffective disorder, bipolar, polysubstance use presenting to the ER for mental health evaluation. Patient states he is having visual and auditory hallucinations. States there are 3 spirits that are family members that are with him. Denies suicidal or homicidal ideation. States he follows with [facility] and attempted to be seen by [facility] today however their office was closed. - Related Data Previous Rx's Medication Instructions Recorded Benztropine Mesylate [Cogentin] 1 mg PO BID 14 Days #28 tab 06/24/24 Pantoprazole [Protonix] 40 mg PO AC-BID 14 Days #28 tab 06/24/24 Propranolol [Inderal] 20 mg PO BID 14 Days #28 tab 06/24/24 Benztropine Mesylate [Cogentin] 1 mg PO BID 30 Days #60 tab 08/04/24 Divalproex [Depakote] 500 mg PO BID 30 Days #60 tab 08/04/24 Nicotine 14Mg/24Hr Patch [Habitrol] 1 patch TRANSDERM DAILY patch 08/04/24 OLANZapine [ZyPREXA] 10 mg PO HS 30 Days #30 tab 08/04/24 Pantoprazole [Protonix] 40 mg PO AC-BID 30 Days #30 tab 08/04/24 Propranolol [Inderal] 20 mg PO BID 30 Days #60 tab 08/04/24 fluPHENAZine decanoate [Prolixin 50 mg IM [id number] 30 Days #1 ml 08/04/24 Decanoate] traZODone HCL [Desyrel] 50 mg PO HS 30 Days #30 tab 08/04/24 Allergies Allergy/AdvReac Type Severity Reaction Status Date / Time cat dander Allergy Itching Verified 09/01/24 10:40 oxcarbazepine AdvReac seizures Verified 09/01/24 10:40 [From Trileptal] paliperidone [From Invega] AdvReac delusional Verified 09/01/24 10:40 risperidone [From Risperdal] AdvReac seizures Verified 09/01/24 10:40 Review of Systems ROS Statement: Those systems with pertinent positive or pertinent negative responses have been documented in the HPI. ROS Other: All systems not noted in ROS Statement are negative. Past Medical History Past Medical History: GERD/Reflux, Musculoskeletal Disorder, Seizure Disorder Additional Past Medical History / Comment(s): scoliosis, herpes, hiatal hernia, migraines, Hepatitis C History of Any Multi-Drug Resistant Organisms: None Reported Past Surgical History: No Surgical Hx Reported Additional Past Surgical History / Comment(s): EGD Past Anesthesia/Blood Transfusion Reactions: No Reported Reaction Past Psychological History: Anxiety, Bipolar, Depression, Schizoaffective Disorder Smoking Status: Current every day smoker - Past Family History Mother History Unknown: Yes Additional Family Medical History / Comment(s): from suicide attempt Father History Unknown: Yes Additional Family Medical History / Comment(s): Reports that he is currently in the stages of dying- but wont clarify further. Inititally the patient stated his father was . General Exam Limitations: no limitations General appearance: alert, in no apparent distress Head exam: Present: atraumatic, normocephalic, normal inspection Eye exam: Present: normal appearance, PERRL, EOMI. Absent: scleral icterus, conjunctival injection, periorbital swelling Neurological exam: Present: alert, oriented X3 Psychiatric exam: Present: anxious, other (Disorganized thoughts). Absent: homicidal ideation, suicidal ideation Skin exam: Present: warm, dry, intact, normal color. Absent: rash Course Vital Signs 09/01/24 10:40 Temperature 97.3 F L Pulse Rate 104 H Respiratory 20 Rate Blood Pressure 167/86 O2 Sat by Pulse 95 Oximetry Medical Decision Making - Medical Decision Making Was pt. sent in by a medical professional or institution (, PA, SOLDER TECHNICIAN, urgent care, hospital, or long-term...) When possible be specific @ -No Did you speak to anyone other than the patient for history (EMS, parent, family, police, friend...)? What history was obtained from this source @ -No Did you review nursing and triage notes (agree or disagree)? Why? @ -I reviewed and agree with nursing and triage notes Were old charts reviewed (outside hosp., previous admission, EMS record, old EKG, old radiological studies, urgent care reports/EKG's, long-term records)? Report findings @ -No old charts were reviewed Differential Diagnosis (chest pain, altered mental status, abdominal pain women, abdominal pain men, vaginal bleeding, weakness, fever, dyspnea, syncope, headache, dizziness, GI bleed, back pain, seizure, CVA, palpatations, mental health, musculoskeletal)? @ -Differential Mental Health Depression, anxiety, bipolar, psychosis, schizophrenia, borderline personality, situational depression, adjustment disorder, behavioral disorder, brain tumor, malingering, substance abuse, encephalopathy, medication reaction, dementia, hypothyroidism, degenerative neurologic disorder, lupus.... This is not meant to be all-inclusive list EKG interpreted by me (3pts min.). @ -None X-rays interpreted by me (1pt min.). @ -None done CT interpreted by me (1pt min.). @ -None done U/S interpreted by me (1pt. min.). @ -None done What testing was considered but not performed or refused? (CT, X-rays, U/S, labs)? Why? @ -None What meds were considered but not given or refused? Why? @ -None Did you discuss the management of the patient with other professionals (professionals i.e. , PA, SOLDER TECHNICIAN, lab, RT, psych nurse, social sciences department chair, colors custodian, teacher, army senior officer, business case analyst)? Give summary @ -I spoke with Gopal from [facility] who recommends admission for inpatient psychiatric treatment. I agree with this plan Was smoking cessation discussed for >3mins.? @ -No Was critical care preformed (if so, how long)? @ -No Were there social determinants of health that impacted care today? How? (Homelessness, low income, unemployed, alcoholism, drug addiction, transportation, low edu. Level, literacy, decrease access to med. care, care home, rehab)? @ -No Was there de-escalation of care discussed even if they declined (Discuss DNR or withdrawal of care, Hospice)? DNR status @ -No What co-morbidities impacted this encounter? (DM, HTN, Smoking, COPD, CAD, Cancer, CVA, ARF, Chemo, Hep., AIDS, mental health diagnosis, sleep apnea, morbid obesity)? @ -None Was patient admitted / discharged? Hospital course, mention meds given and route, prescriptions, significant lab abnormalities, going to OR and other pertinent info. @ -Admitted. 48-year-old male with history of polysubstance use, schizoaffective disorder, bipolar disorder presenting to the ER for mental health evaluation due to visual and auditory hallucinations. Denies suicidal or homicidal ideation. No medical complaints. Patient was medically cleared to be seen by [facility]. I spoke with Gopal from [facility] who recommends admission for inpatient psychiatric treatment. I agree with this plan. Case discussed with my ED attending Dr. Colvin Undiagnosed new problem with uncertain prognosis? @ -No Drug Therapy requiring intensive monitoring for toxicity (Heparin, Nitro, Insulin, Cardizem)? @ -No Were any procedures done? @ -No Diagnosis/symptom? @ -Psychosis Acute, or Chronic, or Acute on Chronic? @ -Acute Uncomplicated (without systemic symptoms) or Complicated (systemic symptoms)? @ -complicated Side effects of treatment? @ -No Exacerbation, Progression, or Severe Exacerbation? @ -No Poses a threat to life or bodily function? How? (Chest pain, [place], [place], pneumonia, PE, COPD, DKA, ARF, appy, cholecystitis, CVA, Diverticulitis, Homicidal, Suicidal, threat to staff... and all critical care pts) @ -yes - Lab Data Lab Results 09/01/24 Range/Units 11:49 Urine Opiates Screen Not Detected (NotDetected) Ur Oxycodone Screen Not Detected (NotDetected) Urine Methadone Screen Not Detected (NotDetected) Ur Barbiturates Screen Not Detected (NotDetected) U Tricyclic Antidepress Not Detected (NotDetected) Ur Phencyclidine Scrn Not Detected (NotDetected) Ur Amphetamines Screen Not Detected (NotDetected) U Methamphetamines Scrn Not Detected (NotDetected) U Benzodiazepines Scrn Not Detected (NotDetected) Urine Cocaine Screen Not Detected (NotDetected) U Marijuana (THC) Screen Detected H (NotDetected) Disposition Clinical Impression: Psychosis Disposition: ADMITTED IP TO THIS HOSP Referrals: [facility] [Primary Care Provider] - 1-2 days Time of Disposition: 13:40
[2024-09-01 12:43] LABS: Amphetamine Screen,Urine Not Detected (NotDetected); Barbiturate Screen,Urine Not Detected (NotDetected); Benzodiazepines Screen,Urine Not Detected (NotDetected); Cocaine Screen,Urine Not Detected (NotDetected); Methadone Screen, Urine Not Detected (NotDetected); Opiate Screen,Urine Not Detected (NotDetected); Oxycodone Screen, Urine Not Detected (NotDetected); Phencyclidine Screen,Urine Not Detected (NotDetected); Tricyclic Antidepressant,Urine Not Detected (NotDetected); Urn Cannabinoid Scrn Detected (NotDetected)
[2024-09-01] MEDS ORDERED: MAG HYDROX/AL HYDROX/SIMETH 355 ML BOTTLE PO PRN (19:23)
[2024-09-01] MEDS ORDERED: MAGNESIUM HYDROXIDE 2,400 MG/30 ML CUP PO PRN (19:23)
[2024-09-01] MEDS ORDERED: HALOPERIDOL LACTATE 5 MG/ML 1 ML VIAL IM PRN (19:23)
[2024-09-01] MEDS ORDERED: LORazepam 1 MG TAB PO PRN (19:23)
[2024-09-01] MEDS: PROPRANOLOL 20 MG TAB PO SCH (20:55)
[2024-09-01] MEDS: LORazepam 1 MG TAB PO PRN (20:55)
[2024-09-01] MEDS: traZODone HCL 50 MG TAB PO SCH (20:55)
[2024-09-01] MEDS: DIVALPROEX 500 MG TABLET.DR PO SCH (20:55)
[2024-09-01] MEDS: OLANZapine 10 MG TAB PO SCH (20:55)
[2024-09-01] MEDS: haloperidoL 5 MG TAB PO PRN (20:55)
[2024-09-01 21:46] LABS: Appearance,Urine Clear (Clear); Bilirubin,Urine Negative (Negative); Blood,Urine Negative (Negative); Color,Urine Light Yellow; Glucose,Urine (UA) Negative (Negative); Ketones,Urine 1+ (Negative); Leukocyte Esterase,Urine Negative (Negative); Nitrite,Urine Negative (Negative); Protein,Urine Negative (Negative); Specific Gravity,Urine 1.011 (1.001-1.035); Urobilinogen,Urine <2.0 mg/dL (<2.0)
--- NOTE | 2024-09-02 05:10 | P.PN ---
Progress Note - Text Progress Note Date: 09/02/24 Informed by the RN regarding the consult. Also informed that the patient is currently inappropriate for evaluation.
[2024-09-02] MEDS: NICOTINE 14MG/24HR PATCH TRANSDERM SCH (08:16)
[2024-09-02] MEDS: PANTOPRAZOLE 40 MG TABLET PO SCH (08:16)
--- NOTE | 2024-09-02 11:04 | P.HP ---
Psychiatric H&P - . H&P Date: 09/02/24 History & Physical: Allergies Allergy/AdvReac Type Severity Reaction Status Date / Time cat dander Allergy Itching Verified 09/01/24 16:28 oxcarbazepine AdvReac seizures Verified 09/01/24 16:28 [From Trileptal] paliperidone [From Invega] AdvReac delusional Verified 09/01/24 16:28 risperidone [From Risperdal] AdvReac seizures Verified 09/01/24 16:28 Vital Signs Temp 97.4 F L 09/02/24 08:21 Pulse 111 H 09/02/24 08:21 Resp 15 09/02/24 08:21 BP 112/82 09/02/24 08:21 Pulse Ox 98 09/02/24 08:21 FiO2 Intake & Output 09/01/24 09/02/24 09/02/24 18:59 06:59 18:59 Weight 58.967 kg 65.4 kg Laboratory Last Values Urine Color Light Yellow 09/01/24 11:49 Urine Appearance Clear (Clear) 09/01/24 11:49 Urine pH 7.0 (5.0-8.0) 09/01/24 11:49 Ur Specific [place] 1.011 (1.001-1.035) 09/01/24 11:49 Urine Protein Negative (Negative) 09/01/24 11:49 Urine Glucose (UA) Negative (Negative) 09/01/24 11:49 Urine Ketones 1+ (Negative) H 09/01/24 11:49 Urine Blood Negative (Negative) 09/01/24 11:49 Urine Nitrite Negative (Negative) 09/01/24 11:49 Urine Bilirubin Negative (Negative) 09/01/24 11:49 Urine Urobilinogen <2.0 mg/dL (<2.0) 09/01/24 11:49 Ur Leukocyte Esterase Negative (Negative) 09/01/24 11:49 Urine Opiates Screen Not Detected (NotDetected) 09/01/24 11:49 Ur Oxycodone Screen Not Detected (NotDetected) 09/01/24 11:49 Urine Methadone Screen Not Detected (NotDetected) 09/01/24 11:49 Ur Barbiturates Screen Not Detected (NotDetected) 09/01/24 11:49 U Tricyclic Antidepress Not Detected (NotDetected) 09/01/24 11:49 Ur Phencyclidine Scrn Not Detected (NotDetected) 09/01/24 11:49 Ur Amphetamines Screen Not Detected (NotDetected) 09/01/24 11:49 U Methamphetamines Scrn Not Detected (NotDetected) 09/01/24 11:49 U Benzodiazepines Scrn Not Detected (NotDetected) 09/01/24 11:49 Urine Cocaine Screen Not Detected (NotDetected) 09/01/24 11:49 U Marijuana (THC) Screen Detected (NotDetected) H 09/01/24 11:49 SARS-CoV-2 (PCR) Not Detected (Not Detectd) 09/01/24 18:08 09/02/24 10:55 IDENTIFYING DATA: Patient is a 48 year old male with extensive psychiatric history, currently living in a hotel, unemployed HPI: Presley Elizalde is a 48 year old male with a history of schizoaffective disorder, bipolar type, and multiple substance use disorders including (cannabis, amphetamine, cocaine, hallucinogens, and nicotine) who currently lives at a hotel. Patient was seen today for psychiatric evaluation. According to [facility] SW note "Cl lying in bed hyper alert A/O x4. Brought in via self after attempting to go to [facility]. Cl observed talking to themselves loudly and responding to internal stimuli, pressured speech, non sensical statements, word salad. Cl reports ingesting "two large bags of mushroom gummies a week ago and 3 days of acid a few days ago. I am booking it out of here, a reset of myself, to do over. 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 Cl continues to state " I have been expanding, and my body is shredding from the inside. I stopped the medications, but some of them do help keep the mouth from going." Cl also reports they have only used LSD and Mushroom gummies. Stating " I have not done any crack in 12 months and no meth in 3, thats good for me, thanks." Cl was cooperative given their state. While eating a provided sandwhich the cl had removed a marijuana bud from their cheek. Gina deras notified clinician who attempted to dispose of it, however cl ingested it. " Down the astudillo, all taken care of, no worries tonight." Cl presents tangential, disorganized, flight of ideas, ideas of reference, paranoid, psycho motor agitated, disheveled, loose associations, and aud gurpreet. Cl reports sleep 3 days ago, and " PB&J for a week, I am low on food.". Cl made various statements during the interview. When asked direct questions Cl consitently gave loose association answers, however was also honest in answering." Patient was seen today laying in bed. Job Printer attempted to speak with patient, patient was closing his eyes, had his arms covering his face. He claims that he is not feeling good at this time, was fairly vague and concrete. He was somewhat disorganized, attempting to cooperate and answer some questions. When asked about his reason for coming to the hospital he states "for personal matters". He claims that he is feeling irritable today, not endorsing depression or anxiety. He was fairly vague evasive. Denying any problems with sleep or appetite. Denying any auditory or visual hallucinations, denying any suicidal homicidal ideations ideations intent or plan. Patient was a poor historian, rest of the past psychiatric history and social history were taken from the EMR PAST PSYCHIATRIC HISTORY: Patient has a history of schizoaffective disorder, bipolar type, and multiple substance use disorders including (cannabis, amphetamine, cocaine, hallucinogens, and nicotine). He has been hospitalized more than 20 times for inpatient psychiatric treatment. [facility] He is followed by the IDBT team at [facility]. He is presently on fluphenazine decanoate 50 mg IM once every 2 weeks, Zyprexa, Cogentin and trazodone. PMH: GERD, Seizure disorder, musculoskeletal concerns (scoliosis), migraines, Hep C. Reportedly receives primary care at [facility]. ALLERGIES: Allergy/AdvReac Type Severity Reaction Status Date / Time cat dander Allergy Itching Verified 07/24/24 12:22 oxcarbazepine AdvReac seizures Verified 07/24/24 12:22 From Trileptal paliperidone from Invega AdvReac delusional Verified 07/24/24 12:22 risperidone from Risperdal AdvReac seizures Verified 07/24/24 12:22 CHEMICAL DEPENDENCY HISTORY: History of consuming mushrooms from the [place] and other hallucinogens. UDS positive for both amphetamine and THC on presentation 07/24/24. FAMILY PSYCHIATRIC/SUBSTANCE USE HISTORY: Unable to assess due to present severity of psychiatric symptoms. SOCIAL HISTORY: Patient currently living at a hotel, and being under the care of a public guardian. Unable to ascertain additional history due to present severity of psychiatric symptoms. MENTAL STATUS EXAM: General Appearance: Patient appears to be stated age is alert, difficult to direct, and impaired in ability to cooperate. Patient appears to have poor hygiene and grooming. Several tattoos. Behavior: Patient is lying down, appears to be sleepy, evasive at times Speech: Patient's speech is fluent but pressured. Ranger, soft tone Mood/Affect: Patient reports their mood is "not good", affect is constricted Suicidality/Homicidality: Patient denies having any suicidal ideation intent or plan. Denies any homicidal ideation. Perceptions: Patient denies any auditory or visual hallucinations. Though content/process: There is evidence of delusional thought content and thought process is tangential and intermittently disorganized. Memory and concentration: Alert to person and place, concentration and memory grossly impaired for the purposes of this session. Judgment and insight: Chronically poor STRENGTHS/WEAKNESSES: strength is that patient is resilient. Weakness is that patient has poor judgment and is impulsive; patient also has substance misuse and inconsistent adherence to treatment. INTELLECT: Average IMPRESSIONS: Schizoaffective disorder, bipolar type Cannabis Use disorder, severe Amphetamine use disorder, severe Hallucinogen use disoder, severe Cocain use disorder Nicotine dependence Non-adherence to treatment PLAN: -Patient is admitted under voluntary status to [facility] for stabilization of psychiatric symptoms and safety. Patient has signed adult voluntary form and did not sign a medication consent. -Medications : - Fluophenazine Decanoate 50 mg IM q14d, last dose documented on aug 21, next dose will be due on 09/04 - zyprexa 10 mg qhs for adjunct psychosis - Cogentin 1 mg BID for eps sx. -trazodone 50 mg qhs for sleep/mood -Ativan and Haldol PRN for agitation/aggression -Patient will be counselled on substance abuse -Internal Medicine consult to perform medical evaluation and physical. -NRT -nicotine patch ordered - on board for discharge planning. Encourage patient to participate in groups to work on coping skills. 09/02/24 10:58
[2024-09-02 18:42] LABS: Basophils # (A) 0.1 k/uL (0-0.2); Basophils % (A) 2 %; Eosinophils # (A) 0.3 k/uL (0-0.7); Eosinophils % (A) 4 %; HCT 52.9 % (39.0-53.0); HGB 17.1 gm/dL (13.0-17.5); Lymphocytes # (A) 2.7 k/uL (1.0-4.8); Lymphocytes % (A) 37 %; MCH 29.5 pg (25.0-35.0); MCHC 32.3 g/dL (31.0-37.0); MCV 91.4 fL (80.0-100.0); Mean Platelet Volume 6.8; Monocytes # (A) 0.7 k/uL (0-1.0); Monocytes % (A) 9 %; Neutrophils # (A) 3.4 k/uL (1.3-7.7); Neutrophils % (A) 46 %; Platelet Count 284 k/uL (150-450); RBC 5.79 m/uL (4.30-5.90); RDW 13.8 % (11.5-15.5); WBC 7.4 k/uL (3.8-10.6)
[2024-09-02 19:01] LABS: ALT 135 U/L (4-49); AST 80 U/L (17-59); African American GFR (CKD) >90 (>60 ml/min/1.73 sqM); Albumin 4.9 g/dL (3.5-5.0); Alkaline Phosphatase 85 U/L (38-126); Anion Gap 11 mmol/L; Blood Urea Nitrogen 17 mg/dL (9-20); Calcium 10.4 mg/dL (8.4-10.2); Carbon Dioxide 26 mmol/L (22-30); Chloride 104 mmol/L (98-107); Glucose 92 mg/dL (74-99); Non-African American GFR(CKD) >90 (>60 ml/min/1.73 sqM); Potassium 4.4 mmol/L (3.5-5.1); Sodium 141 mmol/L (137-145); Total Bilirubin 0.9 mg/dL (0.2-1.3); Total Protein 8.5 g/dL (6.3-8.2)
[2024-09-02] MEDS: BENZTROPINE MESYLATE 1 MG TAB PO SCH (20:14)
[2024-09-03] MEDS: ACETAMINOPHEN TAB 325 MG TAB PO PRN (00:40)
[2024-09-03 09:43] LABS: Chol/HDL Ratio 3.67 Ratio; LDL Cholesterol,Calculated 111.1 mg/dL (0.0-131.0); VLDL Calculation 17.68 mg/dL (5.00-40.00)
[2024-09-03] MEDS ORDERED: traZODone HCL 50 MG TAB PO PRN (10:28)
--- NOTE | 2024-09-03 10:28 | P.PN ---
Progress Note - Text Progress Note Date: 09/03/24 Interval History: Patient was seen today for psychiatric follow-up. He was wandering the hallwa ys, talking to himself. He was fairly cooperative with the interview today, somewhat pleasant. States that he needs to go on a "mission" to [place]. He states that a person is missing and needs to find him. He did not describe more about his intent for doing this. He is not reporting any problems with his medications at this time. States that he slept fairly last night. He continues to be bizarre in thought content, fairly directable. Somewhat pleasant with brief writer. Claims that he is eating fairly. He is taking his medications not reporting any side effects. Denying any suicidal homicidal ideations intent or plan, denying any auditory or visual hallucinations. MENTAL STATUS EXAM: General Appearance: Patient appears to be stated age is alert, more directable today, attempts to cooperate. Patient appears to have poor hygiene and grooming are improving. Several tattoos. Behavior: Patient is wandering the hallways, more pleasant today, bizarre Speech: Patient's speech is fluent but pressured. soft tone Mood/Affect: Patient reports their mood is "better", affect is constricted, improving mildly Suicidality/Homicidality: Patient denies having any suicidal ideation intent or plan. Denies any homicidal ideation. Perceptions: Patient denies any auditory or visual hallucinations. Though content/process: thought process is tangential and intermittently disorganized. Endorsing a delusion, loosely formed. Memory and concentration: Alert to person and place, concentration and memory grossly impaired for the purposes of this session. Judgment and insight: Chronically poor, improving mildly IMPRESSIONS: Schizoaffective disorder, bipolar type Cannabis Use disorder, severe Amphetamine use disorder, severe Hallucinogen use disoder, severe Cocain use disorder Nicotine dependence Non-adherence to treatment PLAN: -Patient is admitted under voluntary status to [facility] for stabilization of psychiatric symptoms and safety. Patient has signed adult voluntary form and did not sign a medication consent. -Medications : - Fluophenazine Decanoate 50 mg IM q14d, last dose documented on aug 21, next dose will be due on / - increase zyprexa 15 mg qhs for adjunct psychosis - Cogentin 1 mg BID for eps sx. - change trazodone 50 mg qhs prn for sleep/mood -Ativan and Haldol PRN for agitation/aggression -NRT -nicotine patch ordered -SW on board for discharge planning. Encourage patient to participate in groups to work on coping skills. Hopeful for discharge early next week if patient is improving psychiatrically
[2024-09-03] MEDS: OLANZapine 7.5 MG TAB PO SCH (20:10)
--- NOTE | 2024-09-04 01:43 | P.CONS ---
History of Present Illness - Reason for Consult Consult date: 09/04/24 - History of Present Illness The patient is a 48-year-old male with a PMH of polysubstance abuse, schizoaffective disorder, and bipolar disorder who had presented to the emergency room for hallucinations. The patient was admitted to mental health unit where he was seen and evaluated. The patient reports that he has been using LSD and other mushrooms as drugs of abuse. He denied any physical complaints at the time of interview. He report smoking half pack of cigarettes daily but denied alcohol use. He also denied experiencing chest discomfort, shortness breath, fever, chills, cough, nausea, vomiting, abdominal pain, diarrhea. Review of systems: Pertinent positives and negatives as discussed in HPI, a complete review of systems was performed and all other systems are negative. Physical examination: General: non toxic, no distress, appears at stated age, normal weight Derm: no unusual rashes/lesions, no unusual ecchymoses, warm, dry Head: atraumatic, normocephalic, symmetric Eyes: EOMI, no lid lag, anicteric sclera ENT: Nose and ears atraumatic, no thrush, no pharyngeal erythema Neck: trachea midline, supple Mouth: no lip lesion, mucus membranes moist Cardiovascular: S1S2 reg, no murmur, no edema Lungs: CTA bilateral, no rhonchi, no rales , no accessory muscle use Abdominal: soft, nontender to palpation, no guarding Ext: no gross muscle atrophy, no contractures, Neuro: No gross focal neuro deficits noted Psych: Alert, oriented, appropriate affect Assessment: Polysubstance abuse Psychosis Low TSH Data Review: WBC count 7.4, hemoglobin 17.1, sodium 141, potassium 4.4, calcium 10.4, TSH 0.393, with urine toxicology positive for marijuana Plan: Advised on importance of cessation from substance use Follow-up free T4 levels Defer management of psychosis to the primary psychiatry service Thank you for allowing us to participate in the care of this patient. We will follow peripherally. Do not hesitate to contact us with questions. Someone can be reached from the [facility] hospitalist group at all hours of the day at [phone]. Past Medical History Past Medical History: GERD/Reflux, Musculoskeletal Disorder, Seizure Disorder Additional Past Medical History / Comment(s): scoliosis, herpes, hiatal hernia, migraines, Hepatitis C History of Any Multi-Drug Resistant Organisms: None Reported Past Surgical History: No Surgical Hx Reported Additional Past Surgical History / Comment(s): EGD Past Anesthesia/Blood Transfusion Reactions: No Reported Reaction Smoking Status: Current every day smoker - Past Family History Mother History Unknown: Yes Additional Family Medical History / Comment(s): from suicide Father History Unknown: Yes Additional Family Medical History / Comment(s): Reports that he is currently in the stages of dying- but wont clarify further. Inititally the patient stated his father was . Medications and Allergies Home Medications Medication Instructions Recorded Confirmed Type Propranolol [Inderal] 20 mg PO BID 14 Days #28 tab 06/24/24 09/01/24 Rx Divalproex [Depakote] 500 mg PO BID 30 Days #60 tab 08/04/24 09/01/24 Rx Nicotine 14Mg/24Hr Patch [Habitrol] 1 patch TRANSDERM DAILY patch 08/04/24 09/01/24 Rx OLANZapine [ZyPREXA] 10 mg PO HS 30 Days #30 tab 08/04/24 09/01/24 Rx Pantoprazole [Protonix] 40 mg PO AC-BID 30 Days #30 tab 08/04/24 09/01/24 Rx fluPHENAZine decanoate [Prolixin 50 mg IM [id number] 30 Days #1 ml 08/04/24 09/01/24 Rx Decanoate] traZODone HCL [Desyrel] 50 mg PO HS 30 Days #30 tab 08/04/24 09/01/24 Rx Allergies Allergy/AdvReac Type Severity Reaction Status Date / Time cat dander Allergy Itching Verified 09/01/24 16:28 oxcarbazepine AdvReac seizures Verified 09/01/24 16:28 [From Trileptal] paliperidone [From Invega] AdvReac delusional Verified 09/01/24 16:28 risperidone [From Risperdal] AdvReac seizures Verified 09/01/24 16:28 Physical Exam Vitals: Vital Signs Pulse BP 09/03/24 20:10 78 108/74 Results CBC & Chem 7: 09/02/24 17:52 09/02/24 17:52 Labs: Abnormal Lab Results - Last 24 Hours (Table) 09/02/24 Range/Units 17:52 Calcium 10.4 H (8.4-10.2) mg/dL AST 80 H (17-59) U/L ALT 135 H (4-49) U/L Total Protein 8.5 H (6.3-8.2) g/dL TSH 0.393 L (0.465-4.680) mIU/L
[2024-09-04] MEDS: fluPHENAZine DECANOATE 25 MG/ML 5ML MDV IM SCH (08:48)
--- NOTE | 2024-09-04 11:37 | P.PN ---
Progress Note - Text Progress Note Date: 09/04/24 Interval History: Patient was seen today for psychiatric follow-up. Patient was wandering the h allways. He continues to talk to himself, continues to be fairly bizarre in his statements, thought process. He was fairly directable during conversation. He spoke about continuing to be on a mission to help his friend. He also talked about being a "new person". He did receive the Prolixin injection this morning tolerated well. Claims that the medications have been helping him. He is not reporting any problems with his medications at this time. States that he slept fairly last night. He continues to be bizarre in thought content, fairly directable. Somewhat pleasant with board writer. Claims that he is eating fairly. Denying any suicidal homicidal ideations intent or plan, denying any auditory or visual hallucinations. MENTAL STATUS EXAM: General Appearance: Patient appears to be stated age is alert, more directable today, attempts to cooperate. Patient appears to have poor hygiene and grooming are improving. Several tattoos. Behavior: Patient is wandering the hallways, more pleasant today, bizarre, improving mildly Speech: Patient's speech is fluent and nonpressured Mood/Affect: Patient reports their mood is "good good", affect is improving mildly Suicidality/Homicidality: Patient denies having any suicidal ideation intent or plan. Denies any homicidal ideation. Perceptions: Patient denies any auditory or visual hallucinations. Though content/process: thought process is tangential and intermittently disorganized. Endorsing a delusion, loosely formed, improving mildly Memory and concentration: Alert to person and place, concentration and memory grossly impaired for the purposes of this session. Judgment and insight: Chronically poor, improving mildly IMPRESSIONS: Schizoaffective disorder, bipolar type Cannabis Use disorder, severe Amphetamine use disorder, severe Hallucinogen use disoder, severe Cocain use disorder Nicotine dependence Non-adherence to treatment PLAN: -Patient is admitted under voluntary status to [facility] for stabilization of psychiatric symptoms and safety. Patient has signed adult voluntary form and did not sign a medication consent. -Medications : - increasing Fluophenazine Decanoate 50 mg IM to q10d dosing. last dose given 09/04, next dose will be due on 09/14 - increase zyprexa 20 mg qhs for adjunct psychosis - Cogentin 1 mg BID for eps sx. - trazodone 50 mg qhs prn for sleep/mood -Ativan and Haldol PRN for agitation/aggression -NRT -nicotine patch ordered -SW on board for discharge planning. Encourage patient to participate in groups to work on coping skills. Hopeful for discharge early next week if patient is improving psychiatrically
[2024-09-04] MEDS: OLANZapine 10 MG TAB PO SCH (21:11)
--- NOTE | 2024-09-05 11:44 | P.PN ---
Progress Note - Text Progress Note Date: 09/05/24 Dictation was produced using [employer] dictation software. Please excuse any grammatical, word or spelling errors. Interval History: Patient was seen in the hallway and was directable and agreeable to speak with loan underwriter in the office, he was seen by the covering provider for psychiatric follow-up. He states that he is "anxious" today and a little upset, reported that "people struggling with life, family and children." His thought process was tangential and seems like he was responding to internal stimuli while speaking with the loan underwriter. He was talking about singing and reported that he has been seeing the future and his dreams. He has some bizarre behavior, his thought process is tangential illogical and nonsensical. He reported high anxiety, and reported that he he use cannabis and nicotine to help with his anxiety, reported that he gave up on crack and speed. He denied any current s uicidal, or homicidal thoughts or behavior. He admitted to having auditory hallucination and elaborate that he has been hearing "Jehovah and vampires." Also admitted to visual hallucination and reported that he has been seeing animals, spirits and he saw a unicorn in the hallway. Has been compliant with his medication, denied any side effects, denied any muscle stiffness, rigidity, abnormal movement, or drooling. He claims good sleep last night however it is reported as 2 hours. Was pleasant, calm with the loan underwriter during the interview. He reported that he called 911 this morning and did not recall why. Patient was educated on refraining from doing so and he seemed understand. Received Prolixin Decanoate injection yesterday, denied side effects. Per nursing report patient called 911 rambling, he was given a verbal warning and educated regarding the use of the unit phone and he seemed to understand. MENTAL STATUS EXAM: General Appearance: Patient appears to be stated age is alert, more directable today, attempts to cooperate. Patient appears to have poor hygiene and grooming are improving. Several tattoos. Behavior: Patient is wandering the hallways, more pleasant today, bizarre, improving mildly Speech: Patient's speech is fluent and nonpressured Mood/Affect: Patient reports their mood is "anxious", affect is improving mildly Suicidality/Homicidality: Patient denies having any suicidal ideation intent or plan. Denies any homicidal ideation. Perceptions: Patient reports auditory and visual hallucinations. Though content/process: thought process is tangential, illogical and nonsensical and intermittently disorganized. Endorsing a delusion, loosely formed, improving mildly Memory and concentration: Alert to person and place, concentration and memory grossly impaired for the purposes of this session. Judgment and insight: Chronically poor, improving mildly IMPRESSIONS: Schizoaffective disorder, bipolar type Cannabis Use disorder, severe Amphetamine use disorder, severe Hallucinogen use disoder, severe Cocain use disorder Nicotine dependence Non-adherence to treatment Assessment/Plan: Continue with current diagnosis. Patient continues to meet criteria for inpatient psychiatric admission for symptom stabilization and safety. Patient will be maintained on current psychotropic medication regimen. Monitor for medication compliance and for any psychotropic medication side effects. Will continue to monitor ongoing response to treatment. Encouraged participation in milieu.
[2024-09-06 06:50] VITALS: TEMP 98.3
--- NOTE | 2024-09-06 13:34 | P.PN ---
Progress Note - Text Progress Note Date: 09/06/24 Dictation was produced using [employer] dictation software. Please excuse any grammatical, word or spelling errors. Interval history: Patient was seen in the hallway and was directable and agreeable to speak with the copywriter in the office for psychiatric follow-up. He states that he is feeling good today, reported that his mood is "anxious" today, reported that he is craving smoking. He reported that he slept fine last night, and reported that it may be around 3 hours, it is reported 1 hour. He reported that depression is at the low side and anxiety at the moderate side. Reported that "I may have 5-6 daughters, and 3-5 sons, however I'm not sure if they mine since no blood test was done." Reported that he lives by himself in [place], with the "vampires, and the spirit" reported that he started hearing voices when he was 11 yo. Reported that he has been using multiple substances, and reported that he is homeless, planning to go to a motel after leaving the hospital, educated about rehab and he reported that he may consider that in the future. He states that he has been taking his medication, he denied any current side effects, denied any muscle stiffness, rigidity, abnormal movements, or drooling, he reported that he may have herpes in his genital area, however reported that to be chronic in nature and not bothering him. He remain with tangential, illogical and nonsensical thought process. He has no insight into his mental illness, education was provided into substance use, reported that he does not consider rehab at this time however he well do it himself in the future. Mental status exam: General Appearance: Patient appears to be stated age is alert, more directable today, attempts to cooperate. Patient appears to have poor hygiene and grooming are improving. Several tattoos. Behavior: Patient is wandering the hallways, more pleasant today, bizarre, improving mildly Speech: Patient's speech is fluent and nonpressured Mood/Affect: Patient reports their mood is "good", affect is improving mildly Suicidality/Homicidality: Patient denies having any suicidal ideation intent or plan. Denies any homicidal ideation. Perceptions: Patient reports auditory and visual hallucinations. Though content/process: thought process is tangential, illogical and nonsensical and intermittently disorganized. Endorsing a delusion, loosely formed, improving mildly Memory and concentration: Alert to person and place, concentration and memory grossly impaired for the purposes of this session. Judgment and insight: Chronically poor, improving mildly IMPRESSIONS: Schizoaffective disorder, bipolar type Cannabis Use disorder, severe Amphetamine use disorder, severe Hallucinogen use disoder, severe Cocain use disorder Nicotine dependence Non-adherence to treatment Assessment/Plan: Continue with current diagnosis. Patient continues to meet criteria for inpatient psychiatric admission for symptom stabilization and safety. Patient will be maintained on current psychotropic medication regimen. Monitor for medication compliance and for any psychotropic medication side effects. Will continue to monitor ongoing response to treatment. Encouraged participation in milieu.
--- NOTE | 2024-09-07 11:32 | P.PN ---
Progress Note - Text Progress Note Date: 09/07/24 Interval History: Patient was seen today for psychiatric follow-up. Patient was wandering the h allways at times talking to himself. He was fairly directable today with poem writer, ann. He continues to be focused on discharge however is speaking about [facility]. He was fairly directable during conversation. Claims that the medications have been helping him. He is not reporting any problems with his medications at this time. States that he slept fairly last night. He continues to be bizarre in thought content, fairly directable, this is improving. Claims that he is eating fairly. Denying any suicidal homicidal ideations intent or plan, denying any auditory or visual hallucinations. MENTAL STATUS EXAM: General Appearance: Patient appears to be stated age is alert, more directable today, attempts to cooperate. Patient appears to have improving hygiene and grooming are improving. Several tattoos. Behavior: Patient is wandering the hallways, more pleasant today, improving mildly Speech: Patient's speech is fluent and nonpressured Mood/Affect: Patient reports their mood is "good sir", affect is improving mildly Suicidality/Homicidality: Patient denies having any suicidal ideation intent or plan. Denies any homicidal ideation. Perceptions: Patient denies any auditory or visual hallucinations. Though content/process: thought process is mildly more organized and intermittently endorsing delusions appear to be chronic and persistent, loosely formed, improving mildly, not preoccupied with this Memory and concentration: Alert to person and place, concentration and memory grossly impaired for the purposes of this session. Judgment and insight: Chronically poor, improving mildly IMPRESSIONS: Schizoaffective disorder, bipolar type Cannabis Use disorder, severe Amphetamine use disorder, severe Hallucinogen use disoder, severe Cocain use disorder Nicotine dependence Non-adherence to treatment PLAN: -Patient is admitted under voluntary status to [facility] for stabilization of psychiatric symptoms and safety. Patient has signed adult voluntary form and did not sign a medication consent. -Medications : - Fluophenazine Decanoate 50 mg IM q10d dosing. last dose given 09/04, next dose will be due on 09/14 - continue zyprexa 20 mg qhs for adjunct psychosis - Cogentin 1 mg BID for eps sx. - trazodone 50 mg qhs prn for sleep/mood -Ativan and Haldol PRN for agitation/aggression -NRT -nicotine patch ordered -SW on board for discharge planning. Encourage patient to participate in groups to work on coping skills. Hopeful for discharge tomorrow if patient is improving psychiatrically
[2024-09-08 07:13] VITALS: RESP 16
[2024-09-08 09:02] VITALS: BP 110/81; PULSE 106
--- NOTE | 2024-09-08 10:30 | P.DS ---
Providers Date of admission: 09/01/24 19:19 Expected date of discharge: 09/08/24 Attending physician: Lion Hughes MD Consults: 09/01/24 19:23 Consult Physician Routine Consulting Provider: Geeta Thomason Consult Reason/Comments: H and P Do you want consulting provider notified?: Yes Primary care physician: [facility] - Discharge Diagnosis(es) (1) Schizoaffective disorder, bipolar type Current Visit: Yes Status: Acute Priority: High (2) Cannabis use disorder, severe, dependence Current Visit: Yes Status: Acute Priority: High (3) Amphetamine use disorder, moderate Current Visit: Yes Status: Acute Priority: High (4) Hallucinogen abuse Current Visit: Yes Status: Acute Priority: High (5) Cocaine use disorder Current Visit: Yes Status: Acute Priority: High (6) Nicotine dependence Current Visit: Yes Status: Acute Priority: Low (7) Noncompliance with medication regimen Current Visit: Yes Status: Acute Priority: High Hospital Course: Admission HPI: Admission note was completed by [credit underwriter] "Patient is a 48 year old male with extensive psychiatric history, currently living in a hotel, unemployed. Presley Elizalde is a 48 year old male with a history of schizoaffective disorder, bipolar type, and multiple substance use disorders including (cannabis, amphetamine, cocaine, hallucinogens, and nicotine) who currently lives at a hotel. Patient was seen today for psychiatric evaluation. According to EPS SW note "Cl lying in bed hyper alert A/O x4. Brought in via self after attempting to go to [facility]. Cl observed talking to themselves loudly and responding to internal stimuli, pressured speech, non sensical statements, word salad. Cl reports ingesting "two large bags of mushroom gummies a week ago and 3 days of acid a few days ago. I am booking it out of here, a reset of myself, to do over. 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 Cl continues to state " I have been expanding, and my body is shredding from the inside. I stopped the medications, but some of them do help keep the mouth from going." Cl also reports they have only used LSD and Mushroom gummies. Stating " I have not done any crack in 12 months and no meth in 3, thats good for me, thanks." Cl wa s cooperative given their state. While eating a provided sandwhich the cl had removed a marijuana bud from their cheek. Gina deras notified clinician who attempted to dispose of it, however cl ingested it. " Down the astudillo, all taken care of, no worries tonight." Cl presents tangential, disorganized, flight of ideas, ideas of reference, paranoid, psycho motor agitated, disheveled, loose associations, and aud gurpreet. Cl reports sleep 3 days ago, and " PB&J for a week, I am low on food.". Cl made various statements during the interview. When asked direct questions Cl consitently gave loose association answers, however was also honest in answering." Patient was seen today laying in bed. Chronometer Repairer attempted to speak with patient, patient was closing his eyes, had his arms covering his face. He claims that he is not feeling good at this time, was fairly vague and concrete. He was somewhat disorganized, attempting to cooperate and answer some questions. When asked about his reason for coming to the hospital he states "for personal matters". He claims that he is feeling irritable today, not endorsing depression or anxiety. He was fairly vague evasive. Denying any problems with sleep or appetite. Denying any auditory or visual hallucinations, denying any suicidal homicidal ideations ideations intent or plan." Hospital course: Upon admission to the unit patient was [directable and agreeable to commence treatment and signed adult voluntary form] . Patient got along well with other patients on the unit and followed unit protocol. Patient was compliant with the medications and denied any side effects throughout hospital course. Patient was started on [Prolixin D 50 mg IM increased to q. 10-day dosing, last dose was given on 09/04 on the unit, next dose will be due on 09/[address] [facility]]. Patient was also started on Zyprexa increased to dose of 20 mg nightly for adjunct psychosis/sleep, Cogentin 1 mg twice daily for EPS symptoms, trazodone 50 mg nightly as needed for sleep/mood. Patient spoke of [his] stressors and engaged in therapy both group and individual. Patient was also seen by medical team for history and physical exam. [] Throughout the course of the hospitalization patient gradually improved with regards to [mood, anxiety], psychosis, sleep and [returned back to their baseline level of functioning]. On the day of discharge patient denied any suicidal or homicidal ideations intent or plan denied any auditory or visual hallucinations. Patient endorsed wanting to live for his health and his freedom. The patient denied any access to guns or weapons. Nicole ent denied any paranoia and did not endorse any delusions. Patient does have a significant history of substance abuse [and] was counseled on abstaining from all substances including alcohol and marijuana. [Patient was offered however declined inpatient substance-abuse rehab.] . Patient was also counseled on the medications and need for regular compliance and was encouraged to follow-up with their outpatient appointment for mental health and also for primary care. Patient is currently staying at the [facility] where he will be returning, he is followed by IDDT team at [facility] closely. Mental status exam: General Appearance: Patient appears to be thin, several tattoos, stated age is alert, pleasant, and cooperative. Patient is in no acute distress and has improved hygiene and grooming Behavior: Patient is calmly seated without any agitated behavior. Speech: Patient's speech is fluent and nonpressured. Mood/Affect: Patient reports their mood is "[good]", affect is congruent and euthymic. Suicidality/Homicidality: Patient denies having any suicidal or homicidal ideation intent or plan. Perceptions: Patient denies any auditory or visual hallucinations. Though content/process: There is no evidence of any delusional thought content and thought process is linear and goal-directed. Memory and concentration: AOX3, grossly intact for the purposes of this session. Can spell "WORLD" backwards correctly. Judgment and insight: [chronically poor, however has] improved with guarded prognosis Impression: Schizoaffective disorder bipolar type Cannabis use disorder severe dependence Amphetamine use disorder moderate Hallucinogen abuse Cocaine use disorder Noncompliance with medication regimen [Nicotine dependence] Plan: -Continue with discharge today as patient has improved and stabilized psychiatrically and is not currently an imminent threat to themself and/or others. [Patient will remain at chronically elevated risk for harm to self and/or others due to their impulsivity and substance abuse and chronic mental illness.] -Continue medications: Prolixin D 50 mg IM every 10 days, last dose was given on 09/04 on the unit, next dose will be given at [facility] on 09/14. Zyprexa 20 mg nightly for adjunct psychosis/sleep, Cogentin 1 mg twice daily for EPS symptoms, trazodone 50 mg nightly as needed for sleep/mood -Patient was counseled on the need for medication compliance and appropriate follow-up at mental health and also primary care for medical issues. Patient verbalized understanding and agreed. -Social work to [help coordinate patients discharge today]. also to ensure safe home environment that guns/weapons are either removed from the home or locked away. Social work also to arrange for patients follow up appointments [with [facility]], patient is also followed closely by the IDDT team at [facility] for psychiatric care along with follow up with primary care provider. -Patient counseled on abstaining from recreational drugs and marijuana and alcohol. Was informed/educated on the adverse effects on their physical and mental health. Patient verbally agreed and understood. [Patient was offered substance abuse treatment however declined at this time.] -Patient was instructed to return to the hospital or seek immediate medical care if their psychiatric or medical symptoms do worsen or reoccur. Allergies Allergy/AdvReac Type Severity Reaction Status Date / Time cat dander Allergy Itching Verified 09/01/24 16:28 oxcarbazepine AdvReac seizures Verified 09/01/24 16:28 [From Trileptal] paliperidone [From Invega] AdvReac delusional Verified 09/01/24 16:28 risperidone [From Risperdal] AdvReac seizures Verified 09/01/24 16:28 Laboratory Results WBC 7.4 k/uL (3.8-10.6) 09/02/24 17:52 RBC 5.79 m/uL (4.30-5.90) 09/02/24 17:52 Hgb 17.1 gm/dL (13.0-17.5) 09/02/24 17:52 Hct 52.9 % (39.0-53.0) 09/02/24 17:52 MCV 91.4 fL (80.0-100.0) 09/02/24 17:52 MCH 29.5 pg (25.0-35.0) 09/02/24 17:52 MCHC 32.3 g/dL (31.0-37.0) 09/02/24 17:52 RDW 13.8 % (11.5-15.5) 09/02/24 17:52 Plt Count 284 k/uL (150-450) 09/02/24 17:52 MPV 6.8 09/02/24 17:52 Neutrophils % 46 % 09/02/24 17:52 Lymphocytes % 37 % 09/02/24 17:52 Monocytes % 9 % 09/02/24 17:52 Eosinophils % 4 % 09/02/24 17:52 Basophils % 2 % 09/02/24 17:52 Neutrophils # 3.4 k/uL (1.3-7.7) 09/02/24 17:52 Lymphocytes # 2.7 k/uL (1.0-4.8) 09/02/24 17:52 Monocytes # 0.7 k/uL (0-1.0) 09/02/24 17:52 Eosinophils # 0.3 k/uL (0-0.7) 09/02/24 17:52 Basophils # 0.1 k/uL (0-0.2) 09/02/24 17:52 Sodium 141 mmol/L (137-145) 09/02/24 17:52 Potassium 4.4 mmol/L (3.5-5.1) 09/02/24 17:52 Chloride 104 mmol/L (98-107) 09/02/24 17:52 Carbon Dioxide 26 mmol/L (22-30) 09/02/24 17:52 Anion Gap 11 mmol/L 09/02/24 17:52 BUN 17 mg/dL (9-20) 09/02/24 17:52 Creatinine 0.96 mg/dL (0.66-1.25) 09/02/24 17:52 Est GFR (CKD-EPI)AfAm >90 (>60 ml/min/1.73 sqM) 09/02/24 17:52 Est GFR (CKD-EPI)NonAf >90 (>60 ml/min/1.73 sqM) 09/02/24 17:52 Glucose 92 mg/dL (74-99) 09/02/24 17:[address] Glu mg/dL 117 mg/dL 09/02/24 17:52 Hemoglobin A1c 5.7 % (<=6.0) 09/02/24 17:52 Calcium 10.4 mg/dL (8.4-10.2) H 09/02/24 17:52 Total Bilirubin 0.9 mg/dL (0.2-1.3) 09/02/24 17:52 AST 80 U/L (17-59) H 09/02/24 17:52 ALT 135 U/L (4-49) H 09/02/24 17:52 Alkaline Phosphatase 85 U/L (38-126) 09/02/24 17:52 Total Protein 8.5 g/dL (6.3-8.2) H 09/02/24 17:52 Albumin 4.9 g/dL (3.5-5.0) 09/02/24 17:52 Triglycerides 88.40 mg/dL (0.00-149.00) 09/02/24 17:52 Cholesterol 177.00 mg/dL (0.00-200.00) 09/02/24 17:52 LDL Cholesterol, Calc 111.1 mg/dL (0.0-131.0) 09/02/24 17:52 VLDL Cholesterol, Calc 17.68 mg/dL (5.00-40.00) 09/02/24 17:52 HDL Cholesterol 48.20 mg/dL (40.00-60.00) 09/02/24 17:52 Cholesterol/HDL Ratio 3.67 Ratio 09/02/24 17:52 TSH 0.393 mIU/L (0.465-4.680) L 09/02/24 17:52 Urine Color Light Yellow 09/01/24 11:49 Urine Appearance Clear (Clear) 09/01/24 11:49 Urine pH 7.0 (5.0-8.0) 09/01/24 11:49 Ur Specific [place] 1.011 (1.001-1.035) 09/01/24 11:49 Urine Protein Negative (Negative) 09/01/24 11:49 Urine Glucose (UA) Negative (Negative) 09/01/24 11:49 Urine Ketones 1+ (Negative) H 09/01/24 11:49 Urine Blood Negative (Negative) 09/01/24 11:49 Urine Nitrite Negative (Negative) 09/01/24 11:49 Urine Bilirubin Negative (Negative) 09/01/24 11:49 Urine Urobilinogen <2.0 mg/dL (<2.0) 09/01/24 11:49 Ur Leukocyte Esterase Negative (Negative) 09/01/24 11:49 Urine Opiates Screen Not Detected (NotDetected) 09/01/24 11:49 Ur Oxycodone Screen Not Detected (NotDetected) 09/01/24 11:49 Urine Methadone Screen Not Detected (NotDetected) 09/01/24 11:49 Ur Barbiturates Screen Not Detected (NotDetected) 09/01/24 11:49 U Tricyclic Antidepress Not Detected (NotDetected) 09/01/24 11:49 Ur Phencyclidine Scrn Not Detected (NotDetected) 09/01/24 11:49 Ur Amphetamines Screen Not Detected (NotDetected) 09/01/24 11:49 U Methamphetamines Scrn Not Detected (NotDetected) 09/01/24 11:49 U Benzodiazepines Scrn Not Detected (NotDetected) 09/01/24 11:49 Urine Cocaine Screen Not Detected (NotDetected) 09/01/24 11:49 U Marijuana (THC) Screen Detected (NotDetected) H 09/01/24 11:49 SARS-CoV-2 (PCR) Not Detected (Not Detectd) 09/01/24 18:08 Vital Signs Temp 98.3 F 09/08/24 06:33 Pulse 106 H 09/08/24 09:02 Resp 16 09/08/24 06:33 BP 110/81 09/08/24 09:02 Pulse Ox 98 09/08/24 06:33 FiO2 Patient Condition at Discharge: Stable Plan - Discharge Summary Discharge Rx Participant: No New Discharge Prescriptions: New Benztropine Mesylate [Cogentin] 1 mg PO BID 15 Days #30 tab traZODone HCL [Desyrel] 50 mg PO HS PRN 15 Days #15 tab PRN Reason: Insomnia fluPHENAZine decanoate [Prolixin Decanoate] 50 mg IM Q10D #1 ml Propranolol [Inderal] 20 mg PO BID 15 Days #30 tab Acetaminophen Tab [Tylenol] 650 mg PO Q4HR PRN tab PRN Reason: Mild Pain (Scale 1 To 3) OLANZapine [ZyPREXA] 20 mg PO HS 15 Days #15 tablet Continue Nicotine 14Mg/24Hr Patch [Habitrol] 1 patch TRANSDERM DAILY 14 Days #14 patch Pantoprazole [Protonix] 40 mg PO AC-BID 15 Days #30 tab Discontinued Propranolol [Inderal] 20 mg PO BID 14 Days #28 tab Divalproex [Depakote] 500 mg PO BID 30 Days #60 tab OLANZapine [ZyPREXA] 10 mg PO HS 30 Days #30 tab traZODone HCL [Desyrel] 50 mg PO HS 30 Days #30 tab fluPHENAZine decanoate [Prolixin Decanoate] 50 mg IM [id number] 30 Days #1 ml Discharge Medication List Acetaminophen Tab [Tylenol] 650 mg PO Q4HR PRN tab 09/08/24 [Rx] Benztropine Mesylate [Cogentin] 1 mg PO BID 15 Days #30 tab 09/08/24 [Rx] Nicotine 14Mg/24Hr Patch [Habitrol] 1 patch TRANSDERM DAILY 14 Days #14 patch 09/08/24 [Rx] OLANZapine [ZyPREXA] 20 mg PO HS 15 Days #15 tablet 09/08/24 [Rx] Pantoprazole [Protonix] 40 mg PO AC-BID 15 Days #30 tab 09/08/24 [Rx] Propranolol [Inderal] 20 mg PO BID 15 Days #30 tab 09/08/24 [Rx] fluPHENAZine decanoate [Prolixin Decanoate] 50 mg IM Q10D #1 ml 09/08/24 [Rx] traZODone HCL [Desyrel] 50 mg PO HS PRN 15 Days #15 tab 09/08/24 [Rx] Follow up Appointment(s)/Referral(s): [facility] [Primary Care Provider] - 1-2 days Activity/Diet/Wound Care/Special Instructions: [facility] Discharge Info Avoid the use of street drugs and alcohol. Take all medications as prescribed. When you are in need of refills on your medications, please contact your outpatient medical provider and/or outpatient psychiatrist. Please go to your scheduled outpatient appointments for aftercare treatment. If symptoms return or become worse, call the crisis line at or and/or visit the nearest emergency room for assistance. National Suicide and Crisis Lifeline - call or text 988 Discharge Disposition: HOME SELF-CARE
[2024-09-14] MEDS ORDERED: fluPHENAZine DECANOATE 25 MG/ML 5ML MDV IM SCH (09:00)
== END 2024-09-08 12:22 | disposition home or self-care (01) | DRG 885 ==
LOC: EC 10:17 → 3MHU 19:19
PROVIDERS: ADMIT Psychiatry & Neurology Psychiatry; ATTEND Psychiatry & Neurology Psychiatry
DX: F25.0 Schizoaffective disorder, bipolar type (principal); F15.20 Other stimulant dependence, uncomplicated; Z59.01 Sheltered homelessness; F12.20 Cannabis dependence, uncomplicated; F16.10 Hallucinogen abuse, uncomplicated; F14.10 Cocaine abuse, uncomplicated; F17.200 Nicotine dependence, unspecified, uncomplicated; G40.909 Epilepsy, unspecified, not intractable, without status epilepticus; K21.9 Gastro-esophageal reflux disease without esophagitis; G43.909 Migraine, unspecified, not intractable, without status migrainosus; Z91.148 Patient's other noncompliance with medication regimen for other reason; Z56.0 Unemployment, unspecified; Z88.8 Allergy status to other drugs, medicaments and biological substances; Z91.048 Other nonmedicinal substance allergy status; Z79.899 Other long term (current) drug therapy
CPT/HCPCS: 80053; 80061; 80306; 81003; 83036; 84443; 85025; 87635; 99285

== ENCOUNTER 2024-10-14 23:12 | Inpatient (IN) | payer MEDICARE, MEDICAID ==
--- NOTE | 2024-10-14 23:35 | ED ---
General Adult HPI - General Stated complaint: SI Time Seen by Provider: 10/14/24 23:14 Source: patient, EMS, RN notes reviewed Mode of arrival: EMS Limitations: no limitations - History of Present Illness Initial comments: 48-year-old male presents emerged part via EMS chief complaint of depression, suicide lesion. Patient states he took what he believes is 20 tablets of trazod one only 20 tablets of his Zyprexa. Patient states he did this because he is suicidal. He is well-known emergency department has a history of bipolar schizophrenia. Patient does have a history of drug abuse denies any current drug use or alcohol. Patient denies any physical self-harm. Patient denies chest pain shortness of breath fevers chills states he is tired at this time. - Related Data Previous Rx's Medication Instructions Recorded Acetaminophen Tab [Tylenol] 650 mg PO Q4HR PRN tab 09/08/24 Benztropine Mesylate [Cogentin] 1 mg PO BID 15 Days #30 tab 09/08/24 Nicotine 14Mg/24Hr Patch [Habitrol] 1 patch TRANSDERM DAILY 14 Days 09/08/24 #14 patch OLANZapine [ZyPREXA] 20 mg PO HS 15 Days #15 tablet 09/08/24 Pantoprazole [Protonix] 40 mg PO AC-BID 15 Days #30 tab 09/08/24 Propranolol [Inderal] 20 mg PO BID 15 Days #30 tab 09/08/24 fluPHENAZine decanoate [Prolixin 50 mg IM Q10D #1 ml 09/08/24 Decanoate] traZODone HCL [Desyrel] 50 mg PO HS PRN 15 Days #15 tab 09/08/24 Pantoprazole [Protonix] 40 mg PO DAILY #30 tab 10/13/24 Allergies Allergy/AdvReac Type Severity Reaction Status Date / Time cat dander Allergy Itching Verified 10/13/24 01:06 oxcarbazepine AdvReac seizures Verified 10/13/24 01:06 [From Trileptal] paliperidone [From Invega] AdvReac delusional Verified 10/13/24 01:06 risperidone [From Risperdal] AdvReac seizures Verified 10/13/24 01:06 Review of Systems ROS Statement: Those systems with pertinent positive or pertinent negative responses have been documented in the HPI. ROS Other: All systems not noted in ROS Statement are negative. Past Medical History Past Medical History: GERD/Reflux, Musculoskeletal Disorder, Seizure Disorder Additional Past Medical History / Comment(s): scoliosis, herpes, hiatal hernia, migraines, Hepatitis C History of Any Multi-Drug Resistant Organisms: None Reported Past Surgical History: No Surgical Hx Reported Additional Past Surgical History / Comment(s): EGD Past Anesthesia/Blood Transfusion Reactions: No Reported Reaction Past Psychological History: Anxiety, Bipolar, Depression, Schizoaffective Disorder Smoking Status: Current every day smoker - Past Family History Mother History Unknown: Yes Additional Family Medical History / Comment(s): from suicide Father History Unknown: Yes Additional Family Medical History / Comment(s): Reports that he is currently in the stages of dying- but wont clarify further. Inititally the patient stated his father was . General Exam Limitations: no limitations General appearance: alert, in no apparent distress Head exam: Present: atraumatic, normocephalic, normal inspection Eye exam: Present: normal appearance, PERRL, EOMI. Absent: scleral icterus, conjunctival injection, periorbital swelling ENT exam: Present: normal exam, normal oropharynx, mucous membranes moist Neck exam: Present: normal inspection, full ROM. Absent: tenderness, meningismus, lymphadenopathy Respiratory exam: Present: normal lung sounds bilaterally. Absent: respiratory distress, wheezes, rales, rhonchi, stridor Cardiovascular Exam: Present: regular rate, normal rhythm, normal heart sounds. Absent: systolic murmur, diastolic murmur, rubs, gallop, clicks GI/Abdominal exam: Present: soft, normal bowel sounds. Absent: distended, tenderness, guarding, rebound, rigid Neurological exam: Present: alert, oriented X3 Psychiatric exam: Present: agitated Course Vital Signs 10/14/24 23:31 Temperature 97.7 F Pulse Rate 99 Respiratory 20 Rate Blood Pressure 129/83 O2 Sat by Pulse 97 Oximetry EKG Findings - EKG Comments: EKG Findings:: EKG performed at 23: 20 normal sinus rate of 97 QRS 108 QT/QTc 342/397 - EKG Results: EKG: interpreted by MARCELLA Medical Decision Making - Medical Decision Making Was pt. sent in by a medical professional or institution (, PA, NOVELTY PRINTING MACHINE OPERATOR, urgent care, hospital, or group home...) When possible be specific @ -No Did you speak to anyone other than the patient for history (EMS, parent, family, police, friend...)? What history was obtained from this source @ -No Did you review nursing and triage notes (agree or disagree)? Why? @ -I reviewed and agree with nursing and triage notes Were old charts reviewed (outside hosp., previous admission, EMS record, old EKG, old radiological studies, urgent care reports/EKG's, group home records)? Report findings @ -No old charts were reviewed Differential Diagnosis (chest pain, altered mental status, abdominal pain women, abdominal pain men, vaginal bleeding, weakness, fever, dyspnea, syncope, headache, dizziness, GI bleed, back pain, seizure, CVA, palpatations, mental health, musculoskeletal)? @ -Differential Mental Health Depression, anxiety, bipolar, psychosis, schizophrenia, borderline personality, situational depression, adjustment disorder, behavioral disorder, brain tumor, malingering, substance abuse, encephalopathy, medication reaction, dementia, hypothyroidism, degenerative neurologic disorder, lupus.... This is not meant to be all-inclusive list EKG interpreted by me (3pts min.). @ -As above X-rays interpreted by me (1pt min.). @ -None done CT interpreted by me (1pt min.). @ -None done U/S interpreted by me (1pt. min.). @ -None done What testing was considered but not performed or refused? (CT, X-rays, U/S, labs)? Why? @ -None What meds were considered but not given or refused? Why? @ -None Did you discuss the management of the patient with other professionals (professionals i.e. , PA, NOVELTY PRINTING MACHINE OPERATOR, lab, RT, psych nurse, manager social, benefits manager, teacher, project officer, case finishing machine adjuster)? Give summary @ -Discussed the case with poison control, EPS evaluated patient and recommended inpatient treatment Was smoking cessation discussed for >3mins.? @ -No Was critical care preformed (if so, how long)? @ -No Were there social determinants of health that impacted care today? How? (Homelessness, low income, unemployed, alcoholism, drug addiction, transportation, low edu. Level, literacy, decrease access to med. care, senior care, rehab)? @ -No Was there de-escalation of care discussed even if they declined (Discuss DNR or withdrawal of care, Hospice)? DNR status @ -No What co-morbidities impacted this encounter? (DM, HTN, Smoking, COPD, CAD, Cancer, CVA, ARF, Chemo, Hep., AIDS, mental health diagnosis, sleep apnea, morbid obesity)? @ -None Was patient admitted / discharged? Hospital course, mention meds given and route, prescriptions, significant lab abnormalities, going to OR and other pertinent info. @ -Admitted to 3 W. Undiagnosed new problem with uncertain prognosis? @ -No Drug Therapy requiring intensive monitoring for toxicity (Heparin, Nitro, Insulin, Cardizem)? @ -No Were any procedures done? @ -No Diagnosis/symptom? @ -Bipolar schizophrenia overdose Acute, or Chronic, or Acute on Chronic? @ -Acute Uncomplicated (without systemic symptoms) or Complicated (systemic symptoms)? @ -Complicated Side effects of treatment? @ -No Exacerbation, Progression, or Severe Exacerbation? @ -No Poses a threat to life or bodily function? How? (Chest pain, [place], [place], pneumonia, PE, COPD, DKA, ARF, appy, cholecystitis, CVA, Diverticulitis, Homicidal, Suicidal, threat to staff... and all critical care pts) @ -Yes suicidal - Lab Data Result diagrams: 10/14/24 23:25 10/14/24 23:25 Lab Results 10/14/24 10/14/24 Range/Units 23:25 23:25 WBC 7.2 (3.8-10.6) k/uL RBC 4.96 (4.30-5.90) m/uL Hgb 14.9 (13.0-17.5) gm/dL Hct 43.9 (39.0-53.0) % MCV 88.6 (80.0-100.0) fL MCH 30.0 (25.0-35.0) pg MCHC 33.9 (31.0-37.0) g/dL RDW 13.7 (11.5-15.5) % Plt Count 189 (150-450) k/uL MPV 7.1 Neutrophils % 59 % Lymphocytes % 27 % Monocytes % 6 % Eosinophils % 6 % Basophils % 1 % Neutrophils # 4.2 (1.3-7.7) k/uL Lymphocytes # 1.9 (1.0-4.8) k/uL Monocytes # 0.4 (0-1.0) k/uL Eosinophils # 0.4 (0-0.7) k/uL Basophils # 0.1 (0-0.2) k/uL Sodium 140 (137-145) mmol/L Potassium 3.7 (3.5-5.1) mmol/L Chloride 103 (98-107) mmol/L Carbon Dioxide 24 (22-30) mmol/L Anion Gap 13 mmol/L BUN 17 (9-20) mg/dL Creatinine 0.85 (0.66-1.25) mg/dL Est GFR (CKD-EPI)AfAm >90 (>60 ml/min/1.73 sqM) Est GFR (CKD-EPI)NonAf >90 (>60 ml/min/1.73 sqM) Glucose 178 H (74-99) mg/dL Calcium 9.7 (8.4-10.2) mg/dL Total Bilirubin 0.5 (0.2-1.3) mg/dL AST 68 H (17-59) U/L ALT 67 H (4-49) U/L Alkaline Phosphatase 75 (38-126) U/L Total Protein 7.1 (6.3-8.2) g/dL Albumin 4.2 (3.5-5.0) g/dL Salicylates <1.0 mg/dL Acetaminophen <10.0 ug/mL Serum Alcohol <10 mg/dL Disposition Clinical Impression: Suicidal ideation, Depression, Schizoaffective disorder, Bipolar 1 disorder Disposition: TRANSFER TO PSYCH HOSP/UNIT Referrals: Duke Archibald MD [Primary Care Provider] - 1-2 days Time of Disposition: 03:00
[2024-10-14 23:36] LABS: Basophils # (A) 0.1 k/uL (0-0.2); Basophils % (A) 1 %; Eosinophils # (A) 0.4 k/uL (0-0.7); Eosinophils % (A) 6 %; HCT 43.9 % (39.0-53.0); HGB 14.9 gm/dL (13.0-17.5); Lymphocytes # (A) 1.9 k/uL (1.0-4.8); Lymphocytes % (A) 27 %; MCHC 33.9 g/dL (31.0-37.0); MCV 88.6 fL (80.0-100.0); Mean Platelet Volume 7.1; Monocytes # (A) 0.4 k/uL (0-1.0); Monocytes % (A) 6 %; Neutrophils # (A) 4.2 k/uL (1.3-7.7); Neutrophils % (A) 59 %; Platelet Count 189 k/uL (150-450); RBC 4.96 m/uL (4.30-5.90); RDW 13.7 % (11.5-15.5); WBC 7.2 k/uL (3.8-10.6)
[2024-10-14 23:55] LABS: ALT 67 U/L (4-49); AST 68 U/L (17-59); Acetaminophen <10.0 ug/mL; African American GFR (CKD) >90 (>60 ml/min/1.73 sqM); Albumin 4.2 g/dL (3.5-5.0); Alcohol <10 mg/dL; Alkaline Phosphatase 75 U/L (38-126); Anion Gap 13 mmol/L; Blood Urea Nitrogen 17 mg/dL (9-20); Calcium 9.7 mg/dL (8.4-10.2); Carbon Dioxide 24 mmol/L (22-30); Chloride 103 mmol/L (98-107); Glucose 178 mg/dL (74-99); Non-African American GFR(CKD) >90 (>60 ml/min/1.73 sqM); Potassium 3.7 mmol/L (3.5-5.1); Salicylate <1.0 mg/dL; Sodium 140 mmol/L (137-145); Total Bilirubin 0.5 mg/dL (0.2-1.3); Total Protein 7.1 g/dL (6.3-8.2)
[2024-10-15] MEDS: SODIUM CHLORIDE 0.9% 1,000 ML IV STA (02:17)
[2024-10-15 04:09] LABS: Influenza A Not Detected (Not Detectd); Influenza B Not Detected (Not Detectd); RSV Not Detected (Not Detectd)
[2024-10-15] MEDS ORDERED: OLANZapine 10 MG VIAL IM PRN (04:46)
[2024-10-15] MEDS ORDERED: OLANZapine 5 MG TAB PO PRN (04:46)
[2024-10-15] MEDS ORDERED: hydrOXYzine HCL 50 MG/ML 1 ML VIAL IM PRN (04:46)
[2024-10-15] MEDS ORDERED: hydrOXYzine HCL 25 MG TAB PO PRN (04:46)
[2024-10-15] MEDS ORDERED: MAGNESIUM HYDROXIDE 2,400 MG/30 ML CUP PO PRN (04:46)
[2024-10-15] MEDS ORDERED: IBUPROFEN 600 MG TAB PO PRN (04:46)
[2024-10-15] MEDS ORDERED: ACETAMINOPHEN TAB 325 MG TAB PO PRN (04:46)
[2024-10-15] MEDS ORDERED: MAG HYDROX/AL HYDROX/SIMETH 355 ML BOTTLE PO PRN (08:00)
[2024-10-15] MEDS: NICOTINE 14MG/24HR PATCH TRANSDERM SCH (08:44)
[2024-10-15] MEDS: PANTOPRAZOLE 40 MG TABLET PO SCH (08:45)
[2024-10-15] MEDS: PROPRANOLOL 20 MG TAB PO SCH (08:45)
[2024-10-15] MEDS: BENZTROPINE MESYLATE 1 MG TAB PO SCH (08:45)
[2024-10-15 09:11] VITALS: TEMP 98.1
[2024-10-15] MEDS: ONDANSETRON ODT 8 MG TAB.RAPDIS PO PRN (10:52)
[2024-10-15] MEDS: diazePAM 5 MG TAB PO STA (10:53)
[2024-10-15] MEDS: ZIPRASIDONE 20 MG VIAL IM STA (11:44)
[2024-10-15 12:04] VITALS: RESP 20
[2024-10-15] MEDS ORDERED: ZIPRASIDONE 20 MG VIAL IM PRN (12:55)
[2024-10-15] MEDS ORDERED: ZIPRASIDONE 40 MG CAP PO PRN (12:55)
--- NOTE | 2024-10-15 13:13 | P.HP ---
Psychiatric H&P - . H&P Date: 10/15/24 History & Physical: Allergies Allergy/AdvReac Type Severity Reaction Status Date / Time cat dander Allergy Itching Verified 10/13/24 01:06 oxcarbazepine AdvReac seizures Verified 10/13/24 01:06 [From Trileptal] paliperidone [From Invega] AdvReac delusional Verified 10/13/24 01:06 risperidone [From Risperdal] AdvReac seizures Verified 10/13/24 01:06 Vital Signs Temp 98.1 F 10/15/24 09:10 Pulse 92 10/15/24 12:03 Resp 20 10/15/24 12:03 BP 126/76 10/15/24 12:03 Pulse Ox 98 10/15/24 12:03 FiO2 Intake & Output 10/14/24 10/15/24 10/15/24 18:59 06:59 18:59 Weight 69.088 kg Laboratory Last Values WBC 7.2 k/uL (3.8-10.6) 10/14/24: RBC 4.96 m/uL (4.30-5.90) 10/14/24 23: Hgb 14.9 gm/dL (13.0-17.5) 10/14/24: Hct 43.9 % (39.0-53.0) 10/14/24: MCV 88.6 fL (80.0-100.0) 10/14/24: MCH 30.0 pg (25.0-35.0) 10/14/24: MCHC 33.9 g/dL (31.0-37.0) 10/14/24 23: RDW 13.7 % (11.5-15.5) 10/14/24: Plt Count 189 k/uL (150-450) 10/14/24 23: MPV 7.1 10/14/24 23: Neutrophils % 59 % 10/14/24 23:25 Lymphocytes % 27 % 10/14/24: Monocytes % 6 % 10/14/24 23: Eosinophils % 6 % 10/14/24: Basophils % 1 % 10/14/24 23: Neutrophils # 4.2 k/uL (1.3-7.7) 10/14/24 23:25 Lymphocytes # 1.9 k/uL (1.0-4.8) 10/14/24 23:25 Monocytes # 0.4 k/uL (0-1.0) 10/14/24 23:25 Eosinophils # 0.4 k/uL (0-0.7) 10/14/24 23: Basophils # 0.1 k/uL (0-0.2) 10/14/24 23:25 Sodium 140 mmol/L (137-145) 10/14/24 23:25 Potassium 3.7 mmol/L (3.5-5.1) 10/14/24 23: Chloride 103 mmol/L (98-107) 10/14/24 23: Carbon Dioxide 24 mmol/L (22-30) 10/14/24 23: Anion Gap 13 mmol/L 10/14/24:25 BUN 17 mg/dL (9-20) 10/14/24: Creatinine 0.85 mg/dL (0.66-1.25) 10/14/24 23:25 Est GFR (CKD-EPI)AfAm >90 (>60 ml/min/1.73 sqM) 10/14/24 23:25 Est GFR (CKD-EPI)NonAf >90 (>60 ml/min/1.73 sqM) 10/14/24 23:25 Glucose 178 mg/dL (74-99) H 10/14/24:25 Calcium 9.7 mg/dL (8.4-10.2) 10/14/24: Total Bilirubin 0.5 mg/dL (0.2-1.3) 10/14/24 23:25 AST 68 U/L (17-59) H 10/14/24 23:25 ALT 67 U/L (4-49) H 10/14/24 23:25 Alkaline Phosphatase 75 U/L (38-126) 10/14/24: Total Protein 7.1 g/dL (6.3-8.2) 10/14/24: Albumin 4.2 g/dL (3.5-5.0) 10/14/24:25 Salicylates <1.0 mg/dL 10/14/24:25 Acetaminophen <10.0 ug/mL 10/14/24 23:25 Serum Alcohol <10 mg/dL 10/14/24 23:25 Influenza Type A (PCR) Not Detected (Not Detectd) 10/15/24 03:10 Influenza Type B (PCR) Not Detected (Not Detectd) 10/15/24 03:10 RSV (PCR) Not Detected (Not Detectd) 10/15/24 03:10 SARS-CoV-2 (PCR) Not Detected (Not Detectd) 10/15/24 03:10 10/15/24 12:43 IDENTIFYING DATA: Patient is a 48 year old male with extensive psychiatric history, currently living in a hotel, unemployed HPI: patient is a 48 year old male with a history of schizoaffective disorder, bipolar type, and multiple substance use disorders including (cannabis, amphetamine, cocaine, hallucinogens, and nicotine) who currently lives at a hotel. Patient was seen for psychiatric evaluation in the ER by EPS RN and according to note "Patient called EMS for himself for overdosing on medications in a suicide attempt. Patient medically cleared by ED Dr prior to assessment. Patient sleeping upon arrival to room, calm and cooperative with assessment. Patient reports "I'm having convulsions from the meds I ate. Zyprexa and trazodone- at least 3 or 4 times more. I dont remember. 12 of each kind" Patient reports he did this "to bring back friends of more people". No convulsions noted at this time. Patient reports suicidal ideation "Aleena been suicidal my whole life- you should know that" When questioned if he had a plan "drugs- all Aleena ever done. Other people have shot me". Patient endorses AV and HV, reports "just hearing people", unable to state what they are saying to him. Patient states " This is difficult with all these questions I just want to fall asleep and "." Patient was admitted voluntarily on mental health unit. Patient supposedly overdosed on Zyprexa trazodone and also LSD. Patient was stumbling around the unit, appeared to be confused poor attention span difficult to redirect. He was responding to internal stimuli. He was seen in another patient's room acknowledge real estate underwriter however was mainly nonsensical. He was escorted to his room where he wandered in his bathroom and then wandered to the towards the middle of the room and started urinating on his hospital gown and on the floor. Patient was not able to provide any history at this time, was given Valium and Zofran as per poison control recommendation. Patient was also given Geodon IM for psychosis/delirium. Patient was a poor historian, rest of the past psychiatric history and social history were taken from the EMR PAST PSYCHIATRIC HISTORY: Patient has a history of schizoaffective disorder, bipolar type, and multiple substance use disorders including (cannabis, amphetamine, cocaine, hallucinogens, and nicotine). He has been hospitalized more than 20 times for inpatient psychiatric treatment. His last admission to the MHU was in Sep 2024. He is followed by the IDBT team at [facility]. He is presently on fluphenazine decanoate 50 mg IM once every 2 weeks, Zyprexa, Cogentin and trazodone. PMH: as per ED note ALLERGIES: Allergy/AdvReac Type Severity Reaction Status Date / Time cat dander Allergy Itching Verified 07/24/24 12:22 oxcarbazepine AdvReac seizures Verified 07/24/24 12:22 From Trileptal paliperidone from Invega AdvReac delusional Verified 07/24/24 12:22 risperidone from Risperdal AdvReac seizures Verified 07/24/24 12:22 CHEMICAL DEPENDENCY HISTORY: History of consuming mushrooms from the [place] and other hallucinogens. UDS positive for both amphetamine and THC on presentation 07/24/24. FAMILY PSYCHIATRIC/SUBSTANCE USE HISTORY: Unable to assess due to present severity of psychiatric symptoms. SOCIAL HISTORY: Patient currently living at a hotel, and being under the care of a public guardian. Unable to ascertain additional history due to present severity of psychiatric symptoms. MENTAL STATUS EXAM: General Appearance: Patient appears to be confused, disheveled appearance, stated age is alert, difficult to redirect. Patient appears to have poor hygiene and grooming. Several tattoos. Behavior: Patient is entering the hallways, bizarre and difficult to redirect Speech: Patient's speech is concentrical, mumbling Mood/Affect: Unable to assess Suicidality/Homicidality: Unable to assess Perceptions: Responding to internal stimuli, unable to assess Though content/process: Mumbling, incoherent Memory and concentration: Alert and oriented x 0, grossly impaired concentration Judgment and insight: Chronically poor, confused STRENGTHS/WEAKNESSES: strength is that patient is resilient. Weakness is that patient has poor judgment and is impulsive; patient also has substance misuse and inconsistent adherence to treatment. INTELLECT: Average IMPRESSIONS: Delirium, likely secondary to medications and substance abuse Hx of Schizoaffective disorder, bipolar type Cannabis Use disorder Amphetamine use disorder Hallucinogen use disoder Cocaine use disorder Nicotine dependence PLAN: -Patient is admitted under voluntary status to MHU for stabilization of psychiatric symptoms and safety. Patient has signed adult voluntary form and did not sign a medication consent, did not request medication information. -Medications : - Fluophenazine Decanoate 50 mg IM q10d, last dose was given at [facility] on 10/12, next dose due today however will hold off on this until patient is medically cl ear - hold zyprexa and cogentin for now due to delirium. avoiding BZD at this time as it will worsen patients confusion/delirium - trazodone 50 mg qhs prn for sleep/mood -Geodon PRN IM and PO for agitation/aggression -Internal Medicine consult to perform medical evaluation and physical. RN alerted medical team about the concern of lack of medical clearance given patient's overdose on medications and LSD and also patient's delirious state. Medical agreed to have patient transferred to the medical floors once a bed is available. -NRT -nicotine patch -GERTRUDE on board for discharge planning 10/15/24 13:12
[2024-10-15] MEDS ORDERED: traZODone HCL 50 MG TAB PO PRN (13:31)
[2024-10-15 13:57] VITALS: BP 138/83; PULSE 83
--- NOTE | 2024-10-15 21:35 | CONS ---
CONSULTATION CHIEF COMPLAINT: Drug overdose. HISTORY OF PRESENT ILLNESS: This is a 48-year-old gentleman, who apparently came to the emergency room after he had consumed unknown quantity of unknown different drugs. He is schizophrenic and he apparently has a history of drug addiction and overdose. REVIEW OF SYSTEMS: Unobtainable. Past medical history, family history, personal and social histories are all otherwise unobtainable. PHYSICAL EXAMINATION: VITAL SIGNS: Normal. He does have a sinus tachycardia of around 100. GENERAL: He is lying in bed and semi-alert. He is probably hallucinating. He is making inappropriate responses to questions and statements. HEAD, EARS, EYES, NOSE, MOUTH, AND THROAT: Unremarkable. CHEST: Clear. CARDIAC: Normal. ABDOMEN: Soft, nontender. EXTREMITIES: Normal. IMPRESSION: 1. Multiple drug ingestion overdose possibly including hallucinogens. 2. History of schizophrenia. RECOMMENDATIONS: None at this time. Thank you respectfully, KONG / YOMI: [id number] /
== END 2024-10-15 15:38 | disposition short-term general hospital (02) | DRG 897 ==
LOC: EC 23:12 → 3MHU 10-15 04:21
PROVIDERS: ADMIT Psychiatry & Neurology Psychiatry; ATTEND Psychiatry & Neurology Psychiatry
DX: F19.121 Other psychoactive substance abuse with intoxication delirium (principal); F14.10 Cocaine abuse, uncomplicated; F25.0 Schizoaffective disorder, bipolar type; G40.909 Epilepsy, unspecified, not intractable, without status epilepticus; Z59.01 Sheltered homelessness; F15.10 Other stimulant abuse, uncomplicated; T43.592A Poisoning by other antipsychotics and neuroleptics, intentional self-harm, initial encounter; F12.10 Cannabis abuse, uncomplicated; Z11.52 Encounter for screening for COVID-19; M41.9 Scoliosis, unspecified; F16.90 Hallucinogen use, unspecified, uncomplicated; X58.XXXA Exposure to other specified factors, initial encounter
CPT/HCPCS: 36415; 80053; 80143; 80179; 80320; 82075; 85025; 87636; 93005; 99285

== ENCOUNTER 2024-10-18 22:37 | Inpatient (IN) | payer MEDICARE, MEDICAID ==
[2024-10-18] MEDS ORDERED: MAG HYDROX/AL HYDROX/SIMETH 355 ML BOTTLE PO PRN (22:44)
[2024-10-18] MEDS ORDERED: ZIPRASIDONE 20 MG VIAL IM PRN (22:44)
[2024-10-18] MEDS ORDERED: MAGNESIUM HYDROXIDE 2,400 MG/30 ML CUP PO PRN (22:44)
[2024-10-19] MEDS: ZIPRASIDONE 20 MG CAP PO PRN (08:14)
[2024-10-19] MEDS: NICOTINE 14MG/24HR PATCH TRANSDERM SCH (08:14)
--- NOTE | 2024-10-19 17:35 | P.HP ---
Psychiatric H&P - . H&P Date: 10/19/24 History & Physical: IDENTIFYING DATA: 48 year old male with extensive psychiatric history, currently living in a hotel, unemployed HPI: Patient was initially admitted to the mental health unit on 10/15/24, and per H&P by Dr. Hughes from 10/15/24, "patient is a 48 year old male with a history of schizoaffective disorder, bipolar type, and multiple substance use disorders including (cannabis, amphetamine, cocaine, hallucinogens, and nicotine) who currently lives at a hotel. Patient was seen for psychiatric evaluation in the ER by EPS RN and according to note "Patient called EMS for himself for overdosing on medications in a suicide attempt. Patient medically cleared by ED Dr prior to assessment. Patient sleeping upon arrival to room, calm and cooperative with assessment. Patient reports "I'm having convulsions from the meds I ate. Zyprexa and trazodone- at least 3 or 4 times more. I dont remember. 12 of each kind" Patient reports he did this "to bring back friends of more people". No convulsions noted at this time. Patient reports suicidal ideation "Aleena been suicidal my whole life- you should know that" When questioned if he had a plan "drugs- all Aleena ever done. Other people have shot me". Patient endorses AV and HV, reports "just hearing people", unable to state what they are saying to him. Patient states " This is difficult with all these questions I just want to fall asleep and "." Patient was admitted voluntarily on mental health unit. Patient supposedly overdosed on Zyprexa trazodone and also LSD. Patient was stumbling around the unit, appeared to be confused poor attention span difficult to redirect. He was responding to internal stimuli. He was seen in another patient's room acknowledge marketing copywriter however was mainly nonsensical. He was escorted to his room where he wandered in his bathroom and then wandered to the towards the middle of the room and started urinating on his hospital gown and on the floor. Patient was not able to provide any history at this time, was given Valium and Zofran as per poison control recommendation. Patient was also given Geodon IM for psychosis/delirium." Poison Control was contacted and recommended medical admission. The medical doctor Dr. Archibald evaluated patient on 10/15/24 and patient was transferred to the medical floor where he was admitted from 10/15/24-10/18/24. While on the medical floor patient's neurological status and vital signs were monitored frequently, and he was given IV fluids. He was monitored per Poison Control recommendations. Repeat CBC with diff and BMP ordered on 10/17/24 were normal. His liver panel from 10/14/24 showed elevated AST (68) and ALT (67), however a repeat liver panel has not been done since. Patient returned to the mental health unit on 10/18/24 evening and was evaluated by this psychiatrist today, 10/19/24. He was found very active in the hallways, walking rapidly and appears to be talking to himself at times. On assessment, he talks rapidly and loudly, but does not appear pressured since he is redirectable. He appears to be a historian of questionable reliability. His insight and judgment appear to be chronically poor. He tells me he is hoping to "get out of here as soon as possible" and he only has "two weeks left at the motel" he is staying at, and then he has "to leave the [facility] and travel to three different rehabs". He states prior to admission he had overdosed on Zyprexa and Trazodone (in addition to using large amounts of LSD) in order to "bring people back to life". He denies SI/HI, intent or plan to me, however per nursing note from this morning patient reported he "will continue to try to take his life until he can bring someone back to life". He reports AVH when using psychodelics. He admits to using psychodelics "I'll use anywhere from...100 hits of LSD to a whole page which would be 1000 hits of LSD soaked in juice." He also uses a "little bit of mushrooms, marijuana". He reports "very little" alcohol use. He smokes cigars and cigarettes occasionally. He has a history of cocaine use but "I gave that up". He denies heroin use. Per chart, he appeared to sleep 6+ hours last night after arriving to the mental health unit yesterday evening. Vital signs reviewed and are stable. So far today he has required PRN Geodon 20 mg x 1 PAST PSYCHIATRIC HISTORY: Per H&P by Dr. Hughes 10/15/2024: Patient has a history of schizoaffective disorder, bipolar type, and multiple s ubstance use disorders including (cannabis, amphetamine, cocaine, hallucinogens, and nicotine). He has been hospitalized more than 20 times for inpatient psychiatric treatment. His last admission to the MHU was in Sep 2024. He is followed by the IDBT team at [facility]. He is presently on fluphenazine decanoate 50 mg IM once every 2 weeks, Zyprexa, Cogentin and trazodone. PMH: Past Medical History: GERD/Reflux, Musculoskeletal Disorder, Seizure Disorder Additional Past Medical History / Comment(s): scoliosis, herpes, hiatal hernia, migraines, Hepatitis C History of Any Multi-Drug Resistant Organisms: None Reported Past Surgical History: No Surgical Hx Reported Additional Past Surgical History / Comment(s): EGD Past Anesthesia/Blood Transfusion Reactions: No Reported Reaction Past Psychological History: Anxiety, Bipolar, Depression, Schizoaffective Disorder Smoking Status: Current every day smoker ALLERGIES: as per EMR CHEMICAL DEPENDENCY HISTORY: as per HPI FAMILY PSYCHIATRIC/SUBSTANCE USE HISTORY: Mother- by suicide per chart SOCIAL HISTORY: Patient currently living at a hotel, and being under the care of a public guardian. MENTAL STATUS EXAM: General Appearance: Patient appears to be stated age, unkempt, fair hygiene and grooming. Behavior: Patient is seated and he continuously and rapidly shakes his legs. He has been walking rapidly around the unit. Speech: Patient's speech is fluent, loud, rapid, and non-pressured. Mood/Affect: Patient reports their mood is "[id number]", affect is congruent and constricted. Suicidality/Homicidality: Patient denies having any homicidal ideation intent or plan. He denies suicidal ideation, intent or plan when I asked him, however per nursing note from this morning he stated reported he "will continue to try to take his life until he can bring someone back to life" Perceptions: Patient denies any visual hallucinations and denies any auditory hallucinations. Though content/process: There is evidence of grandiose and bizarre delusional thought content (he states he overdosed so he "could bring people back to life"). Thought process is generally linear and goal-directed. Memory and concentration: AOX3, grossly intact for the purposes of this session. Judgment and insight: poor STRENGTHS/WEAKNESSES: Strength is that patient is resilient. Weakness is that patient has poor judgment, is impulsive and has poor insight into his substance abuse. INTELLECT: Average IMPRESSIONS: Delirium, likely secondary to medications and substance abuse - resolved Schizoaffective disorder, bipolar type by history - concern for matthew. Cannabis Use disorder Amphetamine use disorder Hallucinogen use disorder Cocaine use disorder Nicotine dependence PLAN: -Patient is admitted under voluntary status to MHU for stabilization of psychiatric symptoms and safety. Patient has signed adult voluntary form and medication consent and is placed in patient's chart. -Medications: He takes Fluphenazine decanoate 50 mg IM [id number]. RN has checked [facility] records which lists the last dose given at [facility] as 10/05/24. His next dose was due on 10/15/24 however this dose was not given due to patient having overdosed and being medically stable on that date. Will restart his Fluphenazine decanoate 50 mg IM [id number], with next dose to be given today 10/19/24. Continue Trazodone 100 mg QHS PRN for sleep. Continue Geodon 20 mg po/IM Q6H PRN for agitation or acute psychosis. - Will order repeat liver profile to monitor LFTs since these were elevated on admission. -Patient was counselled on substance abuse however his insight is poor. -Patient was informed of the risks, benefits and side effects of the medication and patient verbally consented to taking the medications. Patient signed med consent form and was placed in chart. -Internal Medicine consult to perform medical evaluation and physical. -NRT - nicotine patch -SW on board for discharge planning. Encourage patient to participate in groups to work on coping skills. Allergies Allergy/AdvReac Type Severity Reaction Status Date / Time cat dander Allergy Itching Verified 10/13/24 01:06 oxcarbazepine AdvReac seizures Verified 10/13/24 01:06 [From Trileptal] paliperidone [From Invega] AdvReac delusional Verified 10/13/24 01:06 risperidone [From Risperdal] AdvReac seizures Verified 10/13/24 01:06 Vital Signs Temp 97.9 F 10/18/24 23:06 Pulse 88 10/18/24 23:06 Resp 16 10/18/24 23:06 BP 143/78 10/18/24 23:06 Pulse Ox 99 10/18/24 23:06 FiO2 Intake & Output 10/18/24 10/19/24 10/19/24 18:59 06:59 18:59 Weight 66.423 kg 10/19/24 14:04 10/19/24 16:30 10/19/24 16:38 10/19/24 16:41 10/19/24 16:45 10/19/24 17:25
[2024-10-19] MEDS: PANTOPRAZOLE 40 MG TABLET PO SCH (18:42)
[2024-10-19] MEDS: fluPHENAZine DECANOATE 25 MG/ML 5ML MDV IM SCH (18:42)
[2024-10-19] MEDS: ACETAMINOPHEN TAB 325 MG TAB PO PRN (20:55)
[2024-10-20] MEDS: traZODone HCL 50 MG TAB PO PRN (01:57)
[2024-10-20 08:12] LABS: Albumin 4.6 g/dL (3.5-5.0); Bilirubin, Delta 0.2 mg/dL (0.0-0.2); Bilirubin,Unconjugated 0.5 mg/dL (0.0-1.1); Total Bilirubin 0.7 mg/dL (0.2-1.3); Total Protein 7.8 g/dL (6.3-8.2)
--- NOTE | 2024-10-20 11:52 | P.PN ---
Progress Note - Text Progress Note Date: 10/20/24 Interval history: Patient was seen today for psychiatric follow-up. He was seen playing cards e arlier in the group. He bowed down to proposal manager writer and stated several times "yes your Majesty, yes your greatness". He claims that he overdosed on LSD and medications because he was "trying to bring someone back from the ". Claims that he believes Po had . He states that Po is now with "Phillvah". He continues to make some bizarre statements, disorganized at times. Attempts to cooperate. Fairly pleasant during interaction. Not reporting any irritability or mood swings. States that his mood and anxiety have been improving. He has been eating well, not reporting any side effects from medications. Received Prolixin to yesterday. Claims that he did not sleep last night, was agreeable to be restarted back on Zyprexa. Denying any auditory or visual hallucinations denying any suicidal homicidal ideations intent or plan. MENTAL STATUS EXAM: General Appearance: Patient appears to be thin, several tattoos, stated age, unkempt, improving hygiene and grooming. Behavior: Patient is attempting to cooperate. He has been walking rapidly around the unit. Fairly pleasant Speech: Patient's speech is fluent, rapid, and non-pressured. Mood/Affect: Patient reports their mood is "great", affect is congruent Suicidality/Homicidality: Patient denies having any homicidal ideation intent or plan. He denies suicidal ideation, intent or plan Perceptions: Patient denies any visual hallucinations and denies any auditory hallucinations. Though content/process: There is evidence of grandiose and bizarre delusional thought content . Thought process is generally linear and goal-directed. Memory and concentration: AOX3, grossly intact for the purposes of this session. Judgment and insight: Chronically poor/limited IMPRESSIONS: Delirium, likely secondary to medications and substance abuse - resolved Schizoaffective disorder, bipolar type by history - concern for matthew. Cannabis Use disorder Amphetamine use disorder Hallucinogen use disorder Cocaine use disorder Nicotine dependence PLAN: -Patient is admitted under voluntary status to MHU for stabilization of psychiatric symptoms and safety. Patient has signed adult voluntary form and medication consent and is placed in patient's chart. -Medications: Received fluphenazine decanoate 50 mg IM [id number] last given on 10/19, next dose will be due on 10/29 Continue Trazodone 100 mg QHS PRN for sleep. added zyprexa 7.5 mg qhs for sleep/adjunct psychosis Continue Geodon 20 mg po/IM Q6H PRN for agitation or acute psychosis. -NRT - nicotine patch -SW on board for discharge planning. Encourage patient to participate in groups to work on coping skills. hopeful for discharge late this week or early next week once patient improves psychiatrically.
[2024-10-20] MEDS: OLANZapine 2.5 MG TAB PO SCH (20:22)
--- NOTE | 2024-10-21 00:11 | HP ---
HISTORY AND PHYSICAL CHIEF COMPLAINT: Drug ingestion overdose with suicidal attempt and agitation. HISTORY OF PRESENT ILLNESS: This is a 48-year-old gentleman, who was transferred back from the medical floor after he was stabilized. He is awake, alert, and oriented now. REVIEW OF SYSTEMS: Unremarkable. Past medical history, family history, personal and social histories are unremarkable. PHYSICAL EXAMINATION: VITAL SIGNS: Normal. HEAD, EARS, EYES, NOSE, MOUTH, AND THROAT: Normal. CHEST: Clear. CARDIAC: Normal. ABDOMEN: Soft and nontender. EXTREMITIES: Normal. IMPRESSION: 1. Status post drug ingestion and overdose. 2. Major depression. 3. Suicidal personality. RECOMMENDATIONS: None. Thank you respectfully, KONG / YOMI: [id number] /
--- NOTE | 2024-10-21 10:31 | P.PN ---
Progress Note - Text Progress Note Date: 10/21/24 Interval history: Patient was seen today for psychiatric follow-up. Patient was seen pacing the hallways, at times talking to himself. He was fairly pleasant today with telegraphic typewriter operator. States that he slept a bit better about 5 hours last night. Claims that the Zyprexa did make him a bit "thirsty". He had to take Geodon yesterday afternoon and also trazodone at nighttime to help him sleep. He claims that he has been going to some groups. Remains superficial, at times responding to internal stimuli. Fairly cooperative, fairly focused on discharge. Denies any problems with appetite. Denying any auditory or visual hallucinations denying any suicidal homicidal ideations intent or plan. MENTAL STATUS EXAM: General Appearance: Patient appears to be thin, several tattoos, stated age, unkempt, improving hygiene and grooming. Behavior: Patient is attempting to cooperate. He has been walking rapidly around the unit. Fairly pleasant Speech: Patient's speech is fluent, rapid, and non-pressured. Mood/Affect: Patient reports their mood is "great", affect is congruent improving mildly Suicidality/Homicidality: Patient denies having any homicidal ideation intent or plan. He denies suicidal ideation, intent or plan Perceptions: Patient denies any visual hallucinations and denies any auditory hallucinations. Though content/process: There is evidence of bizarre at times thought content . Thought process is generally linear and goal-directed. Focused on discharge Memory and concentration: AOX3, grossly intact for the purposes of this session. Judgment and insight: Chronically poor/limited, improving mildly IMPRESSIONS: Delirium, likely secondary to medications and substance abuse - resolved Schizoaffective disorder, bipolar type by history - concern for matthew. Cannabis Use disorder Amphetamine use disorder Hallucinogen use disorder Cocaine use disorder Nicotine dependence PLAN: -Patient is admitted under voluntary status to [facility] for stabilization of psychiatric symptoms and safety. Patient has signed adult voluntary form and medication consent and is placed in patient's chart. -Medications: Received fluphenazine decanoate 50 mg IM [id number] last given on 10/19, next dose will be due on 10/29 Continue Trazodone 100 mg QHS PRN for sleep. Increase zyprexa 10 mg qhs for sleep/adjunct psychosis Continue Geodon 20 mg po/IM Q6H PRN for agitation or acute psychosis. -NRT - nicotine patch -SW on board for discharge planning. Encourage patient to participate in groups to work on coping skills. hopeful for discharge late this week once patient improves psychiatrically. he will be discharged back home.
[2024-10-21] MEDS: OLANZapine 10 MG TAB PO SCH (19:52)
[2024-10-22] MEDS ORDERED: fluPHENAZine DECANOATE 25 MG/ML 5ML MDV IM SCH (11:00)
[2024-10-22] MEDS ORDERED: diphenhydrAMINE 50 MG CAP PO PRN (11:38)
--- NOTE | 2024-10-22 11:41 | P.PN ---
Progress Note - Text Progress Note Date: 10/22/24 Interval history: Patient was seen today for psychiatric follow-up. Patient was seen walking in the hallways at times talking to himself. He continues to be fairly pleasant with program writer today. Claims that he states that he did not sleep much last night, nursing no claims that patient was up all night. Patient states that he prefers to "right" at night and stay busy. He appears to be more at baseline today, mild bizarre statements, for the most part redirectable and attempts to cooperate. Showing less irritability and more pleasant today. Claims that his appetite is fair. He pleaded with program writer for a discharge tomorrow and states that he only has the hotel for 2 more weeks and then has to find another place to stay. Insight and judgment remain chronically poor. Denying any other side effects from medications. Denying any auditory or visual hallucinations denying any suicidal homicidal ideations intent or plan. MENTAL STATUS EXAM: General Appearance: Patient appears to be thin, several tattoos, stated age, unkempt, improving hygiene and grooming. Behavior: Patient is attempting to cooperate. Bizarre at times. Fairly pleasant Speech: Patient's speech is fluent, rapid, and non-pressured. Mood/Affect: Patient reports their mood is "ok", affect is congruent improving mildly Suicidality/Homicidality: Patient denies having any homicidal ideation intent or plan. He denies suicidal ideation, intent or plan Perceptions: Patient denies any visual hallucinations and denies any auditory hallucinations. Though content/process: There is evidence of bizarre at times thought content . Thought process is generally linear and goal-directed. Focused on discharge Memory and concentration: AOX3, grossly intact for the purposes of this session. Judgment and insight: Chronically poor/limited, improving mildly IMPRESSIONS: Delirium, likely secondary to medications and substance abuse - resolved Schizoaffective disorder, bipolar type by history - concern for matthew. Cannabis Use disorder Amphetamine use disorder Hallucinogen use disorder Cocaine use disorder Nicotine dependence PLAN: -Patient is admitted under voluntary status to [facility] for stabilization of psychiatric symptoms and safety. Patient has signed adult voluntary form and medication consent and is placed in patient's chart. -Medications: Received fluphenazine decanoate 50 mg IM [id number] last given on 10/19, next dose will be due on 10/29 increase Trazodone 150 mg QHS for sleep. Increase zyprexa 15 mg qhs for sleep/adjunct psychosis added benadryl 50 mg qhs prn for sleep Continue Geodon 20 mg po/IM Q6H PRN for agitation or acute psychosis. -NRT - nicotine patch -SW on board for discharge planning. Encourage patient to participate in groups to work on coping skills. hopeful for discharge tomorrow once patient improves psychiatrically. he will be discharged back to the [facility] with [facility] and [facility] close follow up
[2024-10-22] MEDS: IBUPROFEN 600 MG TAB PO PRN (16:55)
[2024-10-22] MEDS: OLANZapine 5 MG TAB PO SCH (20:07)
[2024-10-22] MEDS: traZODone HCL 50 MG TAB PO SCH (20:07)
[2024-10-23] MEDS: NICOTINE GUM (POLACRILEX) 2 MG GUM BUCCAL PRN (08:58)
[2024-10-23] MEDS: chlorproMAZINE 25 MG TAB PO STA (10:37)
--- NOTE | 2024-10-23 10:57 | P.PN ---
Progress Note - Text Progress Note Date: 10/23/24 Interval history: Patient was seen today for psychiatric follow-up. Patient was seen walking in the hallways at times talking to himself. Patient continues to be fairly bizarre responding to internal stimuli. He appears to be somewhat irritable this morning demanding discharge. He was pacing around following life underwriter at times. It was reported by [facility] that patient apparently called and was acting bizarre with one of the workers over the phone and stated that he was going to do whippets when he left the hospital. Logging Rafter Laborer attempted to speak with patient however patient was fairly irritable, demanding discharge, fairly concrete. He claims that he is thinking about filing a lawsuit with the hospital due to "rights violations". bizarre statements, for the most part redirectable and attempts to cooperate. Insight and judgment remain chronically poor. Denying any other side effects from medications. Denying any auditory or visual hallucinations denying any suicidal homicidal ideations intent or plan. MENTAL STATUS EXAM: General Appearance: Patient appears to be thin, several tattoos, stated age, unkempt, improving hygiene and grooming. Behavior: Patient is attempting to cooperate. Bizarre at times. Irritable, aggressive at times. Responding to internal stimuli Speech: Patient's speech is fluent, rapid, and non-pressured. Rambling Mood/Affect: Patient reports their mood is "just fine thanks", affect is in congruent, irritable Suicidality/Homicidality: Patient denies having any homicidal ideation intent or plan. He denies suicidal ideation, intent or plan Perceptions: Patient denies any visual hallucinations and denies any auditory hallucinations. Though content/process: There is evidence of bizarre at times thought content . Thought process is tangential, illogical. Focused on discharge Memory and concentration: AOX3, grossly intact for the purposes of this session. Judgment and insight: Chronically poor/limited IMPRESSIONS: Delirium, likely secondary to medications and substance abuse - resolved Schizoaffective disorder, bipolar type by history - concern for matthew. Cannabis Use disorder Amphetamine use disorder Hallucinogen use disorder Cocaine use disorder Nicotine dependence PLAN: -Patient is admitted under voluntary status to [facility] for stabilization of psychiatric symptoms and safety. Patient has signed adult voluntary form and medication consent and is placed in patient's chart. -Medications: Received fluphenazine decanoate 50 mg IM [id number] last given on 10/19, next dose will be due on 10/29 decrease Trazodone 100 mg QHS for sleep. d/c zyprexa and replace with thorazine 50 mg bid for adjunct psychosis benadryl 50 mg qhs prn for sleep Continue Geodon mg po/IM Q6H PRN for agitation or acute psychosis. -NRT - nicotine patch - on board for discharge planning. Encourage patient to participate in groups to work on coping skills. hopeful for discharge early next week if patient improves psychiatrically. he will be discharged back to the [facility] with IDDT and [facility] close follow up
[2024-10-23] MEDS: LITHIUM CARBONATE ER 450 MG TABLET.ER PO SCH (12:06)
[2024-10-23] MEDS: chlorproMAZINE 25 MG TAB PO SCH (20:26)
[2024-10-23] MEDS: traZODone HCL 100 MG TAB PO SCH (20:27)
--- NOTE | 2024-10-24 10:32 | P.PN ---
Progress Note - Text Progress Note Date: 10/24/24 Interval history: Patient was seen today for psychiatric follow-up. Patient was seen walking in the hallways at times talking to himself. He appears to be less irritable today. He apologized to chief underwriter about yesterday. He continues to talk about a "lawsuit" however states that it is only "for the medications". He states that the Thorazine has been helping him improve his irritability. Claims that he only slept 1 hour last night, has been eating fairly. Pacing the hallways. He continues to make bizarre statements, for the most part redirectable and attempts to cooperate. Insight and judgment remain chronically poor. Denying any other side effects from medications. Denying any auditory or visual hallucinations denying any suicidal homicidal ideations intent or plan. MENTAL STATUS EXAM: General Appearance: Patient appears to be thin, several tattoos, stated age, improving hygiene and grooming. Behavior: Patient is attempting to cooperate. Bizarre at times. Less irritable. Responding to internal stimuli Speech: Patient's speech is fluent, rapid, and non-pressured. Rambling Mood/Affect: Patient reports their mood is "fine thanks", affect is in congruent Suicidality/Homicidality: Patient denies having any homicidal ideation intent or plan. He denies suicidal ideation, intent or plan Perceptions: Patient denies any visual hallucinations and denies any auditory hallucinations. Though content/process: There is evidence of bizarre at times thought content . Thought process is tangential, illogical at times Memory and concentration: AOX3, grossly intact for the purposes of this session. Judgment and insight: Chronically poor/limited, improving mildly IMPRESSIONS: Delirium, likely secondary to medications and substance abuse - resolved Schizoaffective disorder, bipolar type by history - concern for matthew. Cannabis Use disorder Amphetamine use disorder Hallucinogen use disorder Cocaine use disorder Nicotine dependence PLAN: -Patient is admitted under voluntary status to [facility] for stabilization of psychiatric symptoms and safety. Patient has signed adult voluntary form and medication consent and is placed in patient's chart. -Medications: Received fluphenazine decanoate 50 mg IM [id number] last given on 10/19, next dose will be due on 10/29 Increase trazodone 150 mg QHS for sleep. Increase thorazine 75 mg bid for adjunct psychosis benadryl 50 mg qhs prn for sleep Melatonin 6 mg nightly for sleep Continue Geodon mg po/IM Q6H PRN for agitation or acute psychosis. -NRT - nicotine patch -SW on board for discharge planning. Encourage patient to participate in groups to work on coping skills. hopeful for discharge early next week if patient improves psychiatrically. he will be discharged back to the [facility] with IDDT and [facility] close follow up
[2024-10-24 11:03] LABS: Basophils % (A) 1 %; Eosinophils # (A) 0.3 k/uL (0-0.7); Eosinophils % (A) 5 %; HCT 38.7 % (39.0-53.0); HGB 13.1 gm/dL (13.0-17.5); Lymphocytes # (A) 1.6 k/uL (1.0-4.8); Lymphocytes % (A) 24 %; MCH 29.8 pg (25.0-35.0); MCHC 33.8 g/dL (31.0-37.0); MCV 88.3 fL (80.0-100.0); Mean Platelet Volume 7.4; Monocytes # (A) 0.5 k/uL (0-1.0); Monocytes % (A) 8 %; Neutrophils # (A) 4.1 k/uL (1.3-7.7); Neutrophils % (A) 61 %; Platelet Count 241 k/uL (150-450); RBC 4.38 m/uL (4.30-5.90); RDW 13.9 % (11.5-15.5); WBC 6.7 k/uL (3.8-10.6)
[2024-10-24 11:24] LABS: ALT 72 U/L (4-49); AST 55 U/L (17-59); African American GFR (CKD) >90 (>60 ml/min/1.73 sqM); Albumin 4.1 g/dL (3.5-5.0); Alkaline Phosphatase 63 U/L (38-126); Anion Gap 11 mmol/L; Blood Urea Nitrogen 14 mg/dL (9-20); Calcium 9.5 mg/dL (8.4-10.2); Carbon Dioxide 22 mmol/L (22-30); Chloride 104 mmol/L (98-107); Glucose 131 mg/dL (74-99); Non-African American GFR(CKD) >90 (>60 ml/min/1.73 sqM); Potassium 4.4 mmol/L (3.5-5.1); Sodium 137 mmol/L (137-145); Total Bilirubin 0.5 mg/dL (0.2-1.3); Total Protein 6.9 g/dL (6.3-8.2)
[2024-10-24] MEDS: MELATONIN 3 MG TABLET PO SCH (21:09)
[2024-10-24] MEDS: chlorproMAZINE 25 MG TAB PO SCH (21:09)
[2024-10-24] MEDS: traZODone HCL 50 MG TAB PO SCH (21:10)
--- NOTE | 2024-10-25 10:08 | P.PN ---
Progress Note - Text Progress Note Date: 10/25/24 Interval history: Patient was seen today for psychiatric follow-up. Patient was seen walking in the hallways talking to himself, appears to be more cooperative today with conventional mortgage underwriter. He thanked conventional mortgage underwriter for helping him and claims that he likes the Thorazine. He was less bizarre statements, more goal oriented. He was less focused on discharge tomorrow. Claims that his irritability and agitation have "calm down". He continues to be pacing the hallways. He continues to make bizarre statements, for the most part redirectable and attempts to cooperate. Insight and judgment remain chronically poor however is improving mildly. Denying any other side effects from medications. Denying any auditory or visual hallucinations denying any suicidal homicidal ideations intent or plan. MENTAL STATUS EXAM: General Appearance: Patient appears to be thin, several tattoos, stated age, improving hygiene and grooming. Behavior: Patient is attempting to cooperate. Bizarre at times. Responding to internal stimuli less today Speech: Patient's speech is fluent, rapid, and non-pressured. Rambling less Mood/Affect: Patient reports their mood is "good", affect is in congruent Suicidality/Homicidality: Patient denies having any homicidal ideation intent or plan. He denies suicidal ideation, intent or plan Perceptions: Patient denies any visual hallucinations and denies any auditory hallucinations. Though content/process: There is evidence of bizarre at times thought content is improving. Thought process is tangential,less illogical at times Memory and concentration: AOX3, grossly intact for the purposes of this session. Judgment and insight: Chronically poor/limited, improving mildly IMPRESSIONS: Delirium, likely secondary to medications and substance abuse - resolved Schizoaffective disorder, bipolar type by history - concern for matthew. Cannabis Use disorder Amphetamine use disorder Hallucinogen use disorder Cocaine use disorder Nicotine dependence PLAN: -Patient is admitted under voluntary status to [facility] for stabilization of psychiatric symptoms and safety. Patient has signed adult voluntary form and medication consent and is placed in patient's chart. -Medications: Received fluphenazine decanoate 50 mg IM [id number] last given on 10/19, next dose will be due on 10/29 decrease trazodone 100 mg QHS daily for sleep. Increase thorazine 100 mg QHS + 50 mg daily for adjunct psychosis benadryl 50 mg qhs prn for sleep Melatonin 6 mg nightly for sleep Continue Geodon mg po/IM Q6H PRN for agitation or acute psychosis. -NRT - nicotine patch -SW on board for discharge planning. Encourage patient to participate in groups to work on coping skills. hopeful for discharge tomorrow if patient improves psychiatrically. he will be discharged back to the [facility] with [facility]DT and [facility] close follow up
[2024-10-25] MEDS: ZIPRASIDONE 40 MG CAP PO PRN (15:06)
[2024-10-25] MEDS: chlorproMAZINE 100 MG TAB PO SCH (20:09)
[2024-10-25] MEDS: traZODone HCL 100 MG TAB PO SCH (20:09)
[2024-10-26 07:04] LABS: Glucose,Whole Blood 85 mg/dL (70-110)
[2024-10-26 07:27] VITALS: BP 116/79; PULSE 100; RESP 18; TEMP 97.7
[2024-10-26] MEDS: chlorproMAZINE 25 MG TAB PO SCH (08:55)
--- NOTE | 2024-10-26 11:00 | P.DS ---
Providers Date of admission: 10/18/24 22:37 Expected date of discharge: 10/26/24 Attending physician: Lion Hughes MD Consults: 10/18/24 22:44 Consult Physician Routine Consulting Provider: Duke Archibald Consult Reason/Comments: H & P Do you want consulting provider notified?: Yes, Notify in am Primary care physician: Duke Archibald - Discharge Diagnosis(es) (1) Schizoaffective disorder, bipolar type Current Visit: Yes Status: Acute Priority: High (2) Cannabis use disorder Current Visit: Yes Status: Acute Priority: Medium (3) Amphetamine use disorder, moderate Current Visit: Yes Status: Acute Priority: High (4) Hallucinogen use Current Visit: Yes Status: Acute Priority: High (5) Cocaine use disorder Current Visit: Yes Status: Acute Priority: Medium (6) Nicotine dependence Current Visit: Yes Status: Acute Priority: Low Hospital Course: Admission HPI: Admission note was completed by literary writer "48 year old male with extensive psychiatric history, currently living in a hotel, unemployed. Patient was initially admitted to the mental health unit on 10/15/24, and per H&P by Dr. Hughes from 10/15/24, "patient is a 48 year old male with a history of schizoaffective disorder, bipolar type, and multiple substance use disorders including (cannabis, amphetamine, cocaine, hallucinogens, and nicotine) who currently lives at a hotel. Patient was seen for psychiatric evaluation in the ER by EPS RN and according to note "Patient called EMS for himself for overdosing on medications in a suicide attempt. Patient medically cleared by ED Dr prior to assessment. Patient sleeping upon arrival to room, calm and cooperative with assessment. Patient reports "I'm having convulsions from the meds I ate. Zyprexa and trazodone- at least 3 or 4 times more. I dont remember. 12 of each kind" Patient reports he did this "to bring back friends of more people". No convulsions noted at this time. Patient reports suicidal ideation "Aleena been suicidal my whole life- you should know that" When questioned if he had a plan "drugs- all Aleena ever done. Other people have shot me". Patient endorses AV and HV, reports "just hearing people", unable to state what they are saying to him. Patient states " This is difficult with all these questions I just want to fall asleep and "." Patient was admitted voluntarily on mental health unit. Patient supposedly overdosed on Zyprexa trazodone and also LSD. Patient was stumbling around the unit, appeared to be confused poor attention span difficult to redirect. He was responding to internal stimuli. He was seen in another patient's room acknowledge literary writer however was mainly nonsensical. He was escorted to his room where he wandered in his bathroom and then wandered to the towards the middle of the room and started urinating on his hospital gown and on the floor. Patient was not able to provide any history at this time, was given Valium and Zofran as per poison control recommendation. Patient was also given Geodon IM for psychosis/delirium." Poison Control was contacted and recommended medical admission. The medical doctor Dr. Archibald evaluated patient on 10/15/24 and patient was transferred to the medical floor where he was admitted from 10/15/24-10/18/24. While on the medical floor patient's neurological status and vital signs were monitored frequently, and he was given IV fluids. He was monitored per Poison Control charity mmendations. Repeat CBC with diff and BMP ordered on 10/17/24 were normal. His liver panel from 10/14/24 showed elevated AST (68) and ALT (67), however a repeat liver panel has not been done since. Patient returned to the mental health unit on 10/18/24 evening and was evaluated by this psychiatrist today, 10/19/24. He was found very active in the hallways, walking rapidly and appears to be talking to himself at times. On assessment, he talks rapidly and loudly, but does not appear pressured since he is redirectable. He appears to be a historian of questionable reliability. His insight and judgment appear to be chronically poor. He tells me he is hoping to "get out of here as soon as possible" and he only has "two weeks left at the motel" he is staying at, and then he has "to leave the motel and travel to three different rehabs". He states prior to admission he had overdosed on Zyprexa and Trazodone (in addition to using large amounts of LSD) in order to "bring people back to life". He denies SI/HI, intent or plan to me, however per nursing note from this morning patient reported he "will continue to try to take his life until he can bring someone back to life". He reports AVH when using psychodelics. He admits to using psychodelics "I'll use anywhere from...100 hits of LSD to a whole page which would be 1000 hits of LSD soaked in juice." He also uses a "little bit of mushrooms, marijuana". He reports "very little" alcohol use. He smokes cigars and cigarettes occasionally. He has a history of cocaine use but "I gave that up". He denies heroin use. Per chart, he appeared to sleep 6+ hours last night after arriving to the mental health unit yesterday evening. Vital signs reviewed and are stable. So far today he has required PRN Geodon 20 mg x 1 " Hospital course: Upon admission to the unit patient was directable and agreeable to commence treatment and signed adult voluntary form. . Patient was initially bizarre, psychotic responding to internal stimuli, however with time and treatment patient got along well with other patients on the unit and followed unit protocol. Patient was compliant with the medications and denied any side effects throughout hospital course. Patient was started on Prolixin D was given 50 mg IM on 10/19, next dose will be due on 10/29 q. 10 days at [facility]. Trazodone 100 mg nightly for sleep/mood, Thorazine 100 mg nightly +50 mg daily for adjunct psychosis, melatonin 10 mg nightly for sleep. Patient spoke of his stressors and engaged in therapy both group/activity therapy. Patient was also seen by medical team for history and physical exam. Throughout the course of the hospitalization patient gradually improved with regards to mood, anxiety, psychosis, sleep and returned back to their baseline level of functioning. On the day of discharge patient denied any suicidal or homicidal ideations intent or plan denied any auditory or visual hallucinations. Patient endorsed wanting to live for their health and family. The patient denied any access to guns or weapons. Patient denied any paranoia and did not endorse any delusions. Patient does have a significant history of substance abuse and was counseled on abstaining from all substances including alcohol and marijuana. Patient was offered however declined inpatient substance-abuse rehab. Patient elected to do outpatient substance use treatment program through their outpatient provider. Patient was also counseled on the medications and need for regular compliance and was encouraged to follow-up with their outpatient appointment for mental health and also for primary care. deck worker will notify guardian of discharge today, patient will be followed closely by IDDT team and it was communicated to [facility] liaison that patient should only be receiving 2 or 3 days at a time of his medications to prevent overdose or misuse. Mental status exam: General Appearance: Patient appears to be thin, balding, several tattoos, stated age is alert, pleasant, and cooperative. Patient is in no acute distress and has improved hygiene and grooming Behavior: Patient is calmly seated without any agitated behavior. Attempts to cooperate Speech: Patient's speech is fluent and nonpressured. Mood/Affect: Patient reports their mood is "good", affect is congruent and euthymic. Suicidality/Homicidality: Patient denies having any suicidal or homicidal i deation intent or plan. Perceptions: Patient denies any auditory or visual hallucinations. Though content/process: There is no evidence of any delusional thought content and thought process is linear and goal-directed. Rambles at times Memory and concentration: AOX3, grossly intact for the purposes of this session. Can spell "WORLD" backwards correctly. Judgment and insight: Chronically poor/impulsive, however has improved with guarded prognosis Impression: Schizoaffective disorder bipolar type Hallucinogen use Cocaine use disorder Cannabis use disorder Amphetamine use disorder Nicotine dependence Plan: -Continue with discharge today as patient has improved and stabilized psychiatrically and is not currently an imminent threat to themself and/or others. Patient will remain at chronically elevated risk for harm to self and/or others due to their impulsivity and substance abuse and also severe mental health history. -Continue medications: Prolixin D was given 50 mg IM on 10/19, next dose will be due on 10/29 q. 10 days at [facility]. Trazodone 100 mg nightly for sleep/mood, Thorazine 100 mg nightly +50 mg daily for adjunct psychosis, melatonin 10 mg nightly for sleep. -Patient was counseled on the need for medication compliance and appropriate follow-up at mental health and also primary care for medical issues. Patient verbalized understanding and agreed. -Social work to help coordinate patients discharge today and communicate with patient's guardian and [facility]. also to ensure safe home environment that guns/weapons are either removed from the home or locked away. Social work also to arrange for patients follow up appointments with [facility] for psychiatric care along with follow up with primary care provider. Patient will be followed closely by IDDT team to help with medication management and services. -Patient counseled on abstaining from recreational drugs and marijuana and alcohol. Was informed/educated on the adverse effects on their physical and mental health. Patient verbally agreed and understood. Patient was offered substance abuse treatment however declined at this time. -Patient was instructed to return to the hospital or seek immediate medical care if their psychiatric or medical symptoms do worsen or reoccur. Allergies Allergy/AdvReac Type Severity Reaction Status Date / Time cat dander Allergy Itching Verified 10/13/24 01:06 oxcarbazepine AdvReac seizures Verified 10/13/24 01:06 [From Trileptal] paliperidone [From Invega] AdvReac delusional Verified 10/13/24 01:06 risperidone [From Risperdal] AdvReac seizures Verified 10/13/24 01:06 Laboratory Results WBC 6.7 k/uL (3.8-10.6) 10/24/24 10:47 RBC 4.38 m/uL (4.30-5.90) 10/24/24 10:47 Hgb 13.1 gm/dL (13.0-17.5) 10/24/24 10:47 Hct 38.7 % (39.0-53.0) L 10/24/24 10:47 MCV 88.3 fL (80.0-100.0) 10/24/24 10:47 MCH 29.8 pg (25.0-35.0) 10/24/24 10:47 MCHC 33.8 g/dL (31.0-37.0) 10/24/24 10:47 RDW 13.9 % (11.5-15.5) 10/24/24 10:47 Plt Count 241 k/uL (150-450) 10/24/24 10:47 MPV 7.4 10/24/24 10:47 Neutrophils % 61 % 10/24/24 10:47 Lymphocytes % 24 % 10/24/24 10:47 Monocytes % 8 % 10/24/24 10:47 Eosinophils % 5 % 10/24/24 10:47 Basophils % 1 % 10/24/24 10:47 Neutrophils # 4.1 k/uL (1.3-7.7) 10/24/24 10:47 Lymphocytes # 1.6 k/uL (1.0-4.8) 10/24/24 10:47 Monocytes # 0.5 k/uL (0-1.0) 10/24/24 10:47 Eosinophils # 0.3 k/uL (0-0.7) 10/24/24 10:47 Basophils # 0.0 k/uL (0-0.2) 10/24/24 10:47 Sodium 137 mmol/L (137-145) 10/24/24 10:47 Potassium 4.4 mmol/L (3.5-5.1) 10/24/24 10:47 Chloride 104 mmol/L (98-107) 10/24/24 10:47 Carbon Dioxide 22 mmol/L (22-30) 10/24/24 10:47 Anion Gap 11 mmol/L 10/24/24 10:47 BUN 14 mg/dL (9-20) 10/24/24 10:47 Creatinine 0.91 mg/dL (0.66-1.25) 10/24/24 10:47 Est GFR (CKD-EPI)AfAm >90 (>60 ml/min/1.73 sqM) 10/24/24 10:47 Est GFR (CKD-EPI)NonAf >90 (>60 ml/min/1.73 sqM) 10/24/24 10:47 Glucose 131 mg/dL (74-99) H 10/24/24 10:47 POC Glucose (mg/dL) 85 mg/dL (70-110) 10/26/24 07:03 POC Glu Heater Operator Helper ID Adelso Bauer 10/26/24 07:03 Calcium 9.5 mg/dL (8.4-10.2) 10/24/24 10:47 Total Bilirubin 0.5 mg/dL (0.2-1.3) 10/24/24 10:47 Conjugated Bilirubin 0.0 mg/dL (0.0-0.3) 10/20/24 07:16 Unconjugated Bilirubin 0.5 mg/dL (0.0-1.1) 10/20/24 07:16 Delta Bilirubin 0.2 mg/dL (0.0-0.2) 10/20/24 07:16 AST 55 U/L (17-59) 10/24/24 10:47 ALT 72 U/L (4-49) H 10/24/24 10:47 Alkaline Phosphatase 63 U/L (38-126) 10/24/24 10:47 Total Protein 6.9 g/dL (6.3-8.2) 10/24/24 10:47 Albumin 4.1 g/dL (3.5-5.0) 10/24/24 10:47 Vital Signs Temp 97.7 F 10/26/24 07:02 Pulse 100 10/26/24 07:02 Resp 18 10/26/24 07:02 BP 116/79 10/26/24 07:02 Pulse Ox 97 10/26/24 07:02 FiO2 Patient Condition at Discharge: Stable Plan - Discharge Summary Discharge Rx Participant: No New Discharge Prescriptions: New chlorproMAZINE [Thorazine] 100 mg PO HS 30 Days #30 tab traZODone HCL [Desyrel] 100 mg PO HS 30 Days #30 tab [place] Carbonate ER [Lithobid] 450 mg PO DAILY 30 Days #30 tab Melatonin 10 mg PO HS 30 Days #30 ml Nicotine Gum (Polacrilex) [Nicorette] 2 mg BUCCAL Q4HR PRN 30 Days #180 piece ofgum PRN Reason: Nicotine Cravings fluPHENAZine decanoate [Prolixin Decanoate] 50 mg IM Q10D #1 ml Pantoprazole [Protonix] 40 mg PO AC-BID 30 Days #60 tab chlorproMAZINE HCL [Thorazine] 50 mg PO DAILY 30 Days #30 tablet Discharge Medication List [place] Carbonate ER [Lithobid] 450 mg PO DAILY 30 Days #30 tab 10/26/24 [Rx] Melatonin 10 mg PO HS 30 Days #30 ml 10/26/24 [Rx] Nicotine Gum (Polacrilex) [Nicorette] 2 mg BUCCAL Q4HR PRN 30 Days #180 pieceofgum 10/26/24 [Rx] Pantoprazole [Protonix] 40 mg PO AC-BID 30 Days #60 tab 10/26/24 [Rx] chlorproMAZINE HCL [Thorazine] 50 mg PO DAILY 30 Days #30 tablet 10/26/24 [Rx] chlorproMAZINE [Thorazine] 100 mg PO HS 30 Days #30 tab 10/26/24 [Rx] fluPHENAZine decanoate [Prolixin Decanoate] 50 mg IM Q10D #1 ml 10/26/24 [Rx] traZODone HCL [Desyrel] 100 mg PO HS 30 Days #30 tab 10/26/24 [Rx] Follow up Appointment(s)/Referral(s): [facility] [Outside] - 10/26/24 11:30 am (10/26/2024 11:30AM - 12:00PM JARRETT UHFFMAN 10/27/2024 12:00PM - 12:30PM HIWOT THURMAN ) Activity/Diet/Wound Care/Special Instructions: [facility] Discharge Info Avoid the use of street drugs and alcohol. Take all medications as prescribed. When you are in need of refills on your medications, please contact your outpatient medical provider and/or outpatient psychiatrist. Please go to your scheduled outpatient appointments for aftercare treatment. If symptoms return or become worse, call the crisis line at or and/or visit the nearest emergency room for assistance. National Suicide and Crisis Lifeline - call or text 770 Discharge Disposition: HOME SELF-CARE
== END 2024-10-26 15:15 | disposition home or self-care (01) | DRG 885 ==
LOC: 3MHU 22:37 → DISRECOVER 10-19 22:12
PROVIDERS: ADMIT Psychiatry & Neurology Psychiatry; ATTEND Psychiatry & Neurology Psychiatry
DX: F25.0 Schizoaffective disorder, bipolar type (principal); Z59.01 Sheltered homelessness; F15.20 Other stimulant dependence, uncomplicated; B19.20 Unspecified viral hepatitis C without hepatic coma; F14.10 Cocaine abuse, uncomplicated; F16.10 Hallucinogen abuse, uncomplicated; T43.592A Poisoning by other antipsychotics and neuroleptics, intentional self-harm, initial encounter; F12.10 Cannabis abuse, uncomplicated; F41.9 Anxiety disorder, unspecified; F17.210 Nicotine dependence, cigarettes, uncomplicated; F17.290 Nicotine dependence, other tobacco product, uncomplicated; K21.9 Gastro-esophageal reflux disease without esophagitis; M41.9 Scoliosis, unspecified; K44.9 Diaphragmatic hernia without obstruction or gangrene; Z56.0 Unemployment, unspecified; Z88.8 Allergy status to other drugs, medicaments and biological substances
CPT/HCPCS: 80053; 80076; 85025; 93005

== ENCOUNTER 2024-10-27 04:34 | Inpatient (IN) | payer MEDICARE, MEDICAID ==
[2024-10-27] MEDS: CEPHALEXIN 500 MG CAP PO STA (05:15)
[2024-10-27] MEDS: IBUPROFEN 600 MG TAB PO STA (05:15)
--- NOTE | 2024-10-27 05:25 | ED ---
Extremity Problem HPI - General Chief complaint: Extremity Problem,Nontraumatic Stated complaint: Cough Time Seen by Provider: 10/27/24 04:43 Source: patient Mode of arrival: ambulatory Limitations: no limitations, physical limitation - History of Present Illness Initial comments: This patient is a 48-year-old man with history of schizophrenia who presents to have evaluation of left lower leg swelling. He indicates the lower pretibial area just above the ankle. Patient states that he thinks he was shot there. He had not noted fever or chills. He denies recent injury. Patient also to respond to internal stimuli MD Complaint: extremity swelling -: days(s) Location: left Consistency: constant Improves with: nothing Worsens with: nothing Associated Symptoms: denies other symptoms - Related Data Previous Rx's Medication Instructions Recorded Cephalexin [Keflex] 500 mg PO Q6HR 1 Days #24 cap 10/27/24 [place] Carbonate ER [Lithobid] 450 mg PO DAILY 30 Days #30 tab 11/03/24 Melatonin 10 mg PO HS 30 Days #60 tab 11/03/24 Nicotine Gum (Polacrilex) 2 mg BUCCAL Q4HR PRN 30 Days #180 11/03/24 [Nicorette] pieceofgum OLANZapine [ZyPREXA] 20 mg PO HS 30 Days #30 tablet 11/03/24 Pantoprazole [Protonix] 40 mg PO AC-BID 30 Days #60 tab 11/03/24 fluPHENAZine decanoate [Prolixin 50 mg IM Q10D #1 ml 11/03/24 Decanoate] Allergies Allergy/AdvReac Type Severity Reaction Status Date / Time cat dander Allergy Itching Verified 10/27/24 04:39 oxcarbazepine AdvReac seizures Verified 10/27/24 04:39 [From Trileptal] paliperidone [From Invega] AdvReac delusional Verified 10/27/24 04:39 risperidone [From Risperdal] AdvReac seizures Verified 10/27/24 04:39 Review of Systems ROS Statement: Those systems with pertinent positive or pertinent negative responses have been documented in the HPI. ROS Other: All systems not noted in ROS Statement are negative. Constitutional: Reports: weakness. Denies: fever, chills Eyes: Denies: eye discharge, vision change ENT: Denies: throat pain Respiratory: Reports: cough. Denies: dyspnea, wheezes, stridor Cardiovascular: Denies: chest pain Gastrointestinal: Denies: abdominal pain, vomiting Genitourinary: Denies: dysuria, hematuria Musculoskeletal: Denies: back pain Skin: Denies: rash Neurological: Denies: headache, weakness, numbness Past Medical History Past Medical History: GERD/Reflux, Musculoskeletal Disorder, Seizure Disorder Additional Past Medical History / Comment(s): scoliosis, herpes, hiatal hernia, migraines, Hepatitis C History of Any Multi-Drug Resistant Organisms: None Reported Past Surgical History: No Surgical Hx Reported Additional Past Surgical History / Comment(s): EGD Past Anesthesia/Blood Transfusion Reactions: No Reported Reaction Past Psychological History: Anxiety, Bipolar, Depression, Schizoaffective Disorder Smoking Status: Current every day smoker, Vaper Past Alcohol Use History: Unable to Obtain Past Drug Use History: Cocaine, Marijuana, Methamphetamine - Past Family History Mother History Unknown: Yes Family Medical History: No Reported History Additional Family Medical History / Comment(s): from suicide Father History Unknown: Yes Family Medical History: No Reported History Additional Family Medical History / Comment(s): Reports that he is currently in the stages of dying- but wont clarify further. Inititally the patient stated his father was . General Exam Limitations: no limitations General appearance: alert Head exam: Present: atraumatic Eye exam: Present: normal appearance. Absent: scleral icterus, conjunctival injection ENT exam: Present: normal oropharynx Neck exam: Present: normal inspection Respiratory exam: Present: normal lung sounds bilaterally. Absent: respiratory distress, wheezes, rales, rhonchi, stridor Cardiovascular Exam: Present: regular rate, normal rhythm, normal heart sounds. Absent: systolic murmur, diastolic murmur, rubs, gallop GI/Abdominal exam: Present: soft. Absent: distended, tenderness, guarding, rebound, rigid, mass Extremities exam: Present: normal inspection, normal capillary refill, other (Has some erythema and mild edema left pretibial area consistent with early cellulitis.). Absent: calf tenderness Back exam: Present: normal inspection. Absent: CVA tenderness (R), CVA tenderness (L) Neurological exam: Present: alert Psychiatric exam: Present: anxious, manic. Absent: agitated, flat affect, homicidal ideation, suicidal ideation Skin exam: Present: warm, dry, intact, normal color. Absent: rash Course Vital Signs 10/27/24 10/27/24 04:36 07:12 Temperature 97.4 F L 97.6 F Pulse Rate 114 H 106 H Respiratory 16 16 Rate Blood Pressure 148/99 152/98 O2 Sat by Pulse 95 95 Oximetry Medical Decision Making - Medical Decision Making Was pt. sent in by a medical professional or institution (, [facility], IT APPLICATION ADMINISTRATOR, urgent care, hospital, or fdc...) When possible be specific @ -[No] Did you speak to anyone other than the patient for history (EMS, parent, family, police, friend...)? What history was obtained from this source @ -[No] Did you review nursing and triage notes (agree or disagree)? Why? @ -[I reviewed and agree with nursing and triage notes] Were old charts reviewed (outside hosp., previous admission, EMS record, old EKG, old radiological studies, urgent care reports/EKG's, fdc records)? Report findings @ -[No old charts were reviewed] Differential Diagnosis (chest pain, altered mental status, abdominal pain women, abdominal pain men, vaginal bleeding, weakness, fever, dyspnea, syncope, headache, dizziness, GI bleed, back pain, seizure, CVA, palpatations, mental health, musculoskeletal)? @ -[Differential Mental Health Depression, anxiety, bipolar, psychosis, schizophrenia, borderline personality, situational depression, adjustment disorder, behavioral disorder, brain tumor, malingering, substance abuse, encephalopathy, medication reaction, dementia, hypothyroidism, degenerative neurologic disorder, lupus.... This is not meant to be all-inclusive list EKG interpreted by me (3pts min.). @ -[As above] X-rays interpreted by me (1pt min.). @ -[None done] CT interpreted by me (1pt min.). @ -[None done] U/S interpreted by me (1pt. min.). @ -[None done] What testing was considered but not performed or refused? (CT, X-rays, U/S, labs)? Why? @ -[None] What meds were considered but not given or refused? Why? @ -[None] Did you discuss the management of the patient with other professionals (chris begum i.e. Dr., PA, IT APPLICATION ADMINISTRATOR, lab, RT, psych nurse, social services aide, check pilot, teacher, chief lifestyle officer, egg caser)? Give summary @ -[No] Was smoking cessation discussed for >3mins.? @ -[No] Was critical care preformed (if so, how long)? @ -[No] Were there social determinants of health that impacted care today? How? (Homelessness, low income, unemployed, alcoholism, drug addiction, transportatio n, low edu. Level, literacy, decrease access to med. care, snf, rehab)? @ -[No] Was there de-escalation of care discussed even if they declined (Discuss DNR or withdrawal of care, Hospice)? DNR status @ -[No] What co-morbidities impacted this encounter? (DM, HTN, Smoking, COPD, CAD, Cancer, CVA, ARF, Chemo, Hep., AIDS, mental health diagnosis, sleep apnea, morbid obesity)? @ -[History of psychiatric disease Was patient admitted / discharged? Hospital course, mention meds given and route, prescriptions, significant lab abnormalities, going to OR and other pertinent info. @ -[Patient is 48-year-old man here with psychiatric symptoms. He does have disorganized thought processes and delusional thought content. The case discussed with EPS and after they evaluated the patient and discussed with psychiatrist they will admit for further psychiatric care. Undiagnosed new problem with uncertain prognosis? @ -[No] Drug Therapy requiring intensive monitoring for toxicity (Heparin, Nitro, I nsulin, Cardizem)? @ -[No] Were any procedures done? @ -[No] Diagnosis/symptom? @ -[Acute psychosis Acute, or Chronic, or Acute on Chronic? @ -[Acute Uncomplicated (without systemic symptoms) or Complicated (systemic symptoms)? @ -[Uncomplicated Side effects of treatment? @ -[No] Exacerbation, Progression, or Severe Exacerbation? @ -[No] Poses a threat to life or bodily function? How? (Chest pain, [place], [place], pneumonia, PE, COPD, DKA, ARF, appy, cholecystitis, CVA, Diverticulitis, Homicidal, Suicidal, threat to staff... and all critical care pts) @ -[No] All treatments are based on ideal body weight as in ED triage - Lab Data Lab Results 10/27/24 Range/Units 06:30 SARS-CoV-2 (PCR) Not Detected (Not Detectd) Disposition Clinical Impression: Cellulitis, Psychosis Disposition: TRANSFER TO PSYCH HOSP/UNIT Condition: Stable Is patient prescribed a controlled substance at d/c from ED?: No
[2024-10-27] MEDS ORDERED: ZIPRASIDONE 20 MG VIAL IM PRN ×2 (08:59→11:41)
[2024-10-27] MEDS ORDERED: MAG HYDROX/AL HYDROX/SIMETH 355 ML BOTTLE PO PRN (08:59)
[2024-10-27] MEDS ORDERED: MAGNESIUM HYDROXIDE 2,400 MG/30 ML CUP PO PRN (08:59)
[2024-10-27] MEDS ORDERED: LORazepam 1 MG TAB PO PRN (08:59)
[2024-10-27] MEDS: fluPHENAZine DECANOATE 25 MG/ML 5ML MDV IM SCH (09:30)
[2024-10-27] MEDS: chlorproMAZINE 25 MG TAB PO SCH (09:32)
[2024-10-27] MEDS: LITHIUM CARBONATE ER 450 MG TABLET.ER PO SCH (09:32)
--- NOTE | 2024-10-27 11:42 | P.HP ---
Psychiatric H&P - . H&P Date: 10/27/24 History & Physical: Allergies Allergy/AdvReac Type Severity Reaction Status Date / Time cat dander Allergy Itching Verified 10/27/24 04:39 oxcarbazepine AdvReac seizures Verified 10/27/24 04:39 [From Trileptal] paliperidone [From Invega] AdvReac delusional Verified 10/27/24 04:39 risperidone [From Risperdal] AdvReac seizures Verified 10/27/24 04:39 Vital Signs Temp 97.6 F 10/27/24 07:12 Pulse 106 H 10/27/24 07:12 Resp 16 10/27/24 07:12 BP 152/98 10/27/24 07:12 Pulse Ox 95 10/27/24 07:12 FiO2 Intake & Output 10/26/24 10/27/24 10/27/24 18:59 06:59 18:59 Weight 67.132 kg Laboratory Last Values SARS-CoV-2 (PCR) Not Detected (Not Detectd) 10/27/24 06:30 10/27/24 11:19 History & Physical: IDENTIFYING DATA: 48 year old male with extensive psychiatric history, currently living in a hotel, unemployed HPI: Patient has history of schizoaffective disorder, polysubstance abuse including hallucinogens and abuse. Patient was just discharged from the mental health unit yesterday on 10/26, is closely followed by [facility] IDDT team. Patient was evaluated yesterday by EPS nurse and as per note "Pt. came to ER complaining of a broken foot and a cough. No foot trama evident. Pt well known to EPS and was just discharged from MHU yesterday 10/26/2024. Pt speech is rapid and pressured. Pt immediately began apologizing to comic book writer for "Doing that stuff" and "Not believing the truth". Pt claims to have used cannabis and Mad Honey (a psychedelic) when he was discharged yesterday. Also states that he has been having sex with reptiles. Thought process is disorganized and delusional." Patient was admitted to the mental health unit this morning, was seen by comic book writer in his room. Patient had the blankets covering his face, he agreed to pull it down and talk to comic book writer briefly. He appeared to be disheveled in appearance, fairly sedated. When asked about what it occurred when he left the hospital he states that "I was just having fun". Claims that he was wandering downtown, claims that he was "tripping eating and smoking". He was fairly delusional, illogical. Having loose associations. He claims that he cannot member what drugs he took. He spoke about "[place] the " and also was speaking about "hearing voices telepathically". He is denying any suicidal homicidal ideations intent or plan. He has a history of polysubstance abuse including hallucinogens, cocaine, cannabis and alcohol. Also uses nicotine. PAST PSYCHIATRIC HISTORY: Per H&P by Dr. Hughes 10/15/2024: Patient has a history of schizoaffective disorder, bipolar type, and multiple substance use disorders including (cannabis, amphetamine, cocaine, hallucinogens, and nicotine). He has been hospitalized more than 20 times for inpatient psychiatric treatment. His last admission to the MHU was just discharged from the mental health unit on 10/26/2024. He is followed by the IDBT team at [facility]. He is presently on fluphenazine decanoate 50 mg IM once every 2 weeks, Zyprexa, Cogentin and trazodone. PMH: Past Medical History: GERD/Reflux, Musculoskeletal Disorder, Seizure Disorder Additional Past Medical History / Comment(s): scoliosis, herpes, hiatal hernia, migraines, Hepatitis C History of Any Multi-Drug Resistant Organisms: None Reported Past Surgical History: No Surgical Hx Reported Additional Past Surgical History / Comment(s): EGD Past Anesthesia/Blood Transfusion Reactions: No Reported Reaction Past Psychological History: Anxiety, Bipolar, Depression, Schizoaffective Disorder Smoking Status: Current every day smoker ALLERGIES: as per EMR CHEMICAL DEPENDENCY HISTORY: as per HPI FAMILY PSYCHIATRIC/SUBSTANCE USE HISTORY: Mother- by suicide per chart SOCIAL HISTORY: Patient currently living at a hotel, and being under the care of a public guardian. MENTAL STATUS EXAM: General Appearance: Patient appears to be stated age, unkempt, fair hygiene and grooming. Behavior: Patient is seated and he continuously and rapidly shakes his legs. He has been walking rapidly around the unit. Speech: Patient's speech is fluent, loud, rapid, and non-pressured. Mood/Affect: Patient reports their mood is "[id number]", affect is congruent and constricted. Suicidality/Homicidality: Patient denies having any homicidal ideation intent or plan. He denies suicidal ideation, intent or plan Perceptions: Patient denies any visual hallucinations and denies any auditory hallucinations. Though content/process: There is evidence of grandiose and bizarre delusional thought content (he states he overdosed so he "could bring people back to life"). Thought process is generally linear and goal-directed. Memory and concentration: AOX3, grossly intact for the purposes of this session. Judgment and insight: poor STRENGTHS/WEAKNESSES: Strength is that patient is resilient. Weakness is that patient has poor judgment, is impulsive and has poor insight into his substance abuse. INTELLECT: Average IMPRESSIONS: Schizoaffective disorder, bipolar type Cannabis Use disorder Amphetamine use disorder Hallucinogen use disorder Cocaine use disorder Nicotine dependence PLAN: -Patient is admitted under voluntary status to MHU for stabilization of psychiatric symptoms and safety. Patient has signed adult voluntary form and medication consent and is placed in patient's chart. -Medications: Fluphenazine decanoate 50 mg IM [id number]. will receive next dose today. Continue with Thorazine 100 mg nightly +50 mg daily for psychosis adjunct. Continue Trazodone 100 mg QHS for sleep. Melatonin 10 mg nightly for sleep. Continue Geodon 20 mg po/IM Q6H PRN for agitation or acute psychosis. -Patient was counselled on substance abuse however his insight is poor. -Patient was informed of the risks, benefits and side effects of the medication and patient verbally consented to taking the medications. Patient did not want to sign med consent form and was placed in chart, offered written information on medications and pt declined it. -Internal Medicine consult to perform medical evaluation and physical. -NRT - nicotine patch -SW on board for discharge planning. Encourage patient to participate in groups to work on coping skills. will arrange a interdisciplinary meeting with [facility]/iddt team and marquita to decide on best course of management for patient given several readmissions and increasing severity of impulsivity and mental illness
[2024-10-27] MEDS: PANTOPRAZOLE 40 MG TABLET PO SCH (17:57)
[2024-10-27] MEDS: traZODone HCL 100 MG TAB PO SCH (21:21)
[2024-10-27] MEDS: MELATONIN 5 MG TABLET PO SCH (21:21)
[2024-10-27] MEDS: chlorproMAZINE 100 MG TAB PO SCH (21:21)
[2024-10-28] MEDS: IBUPROFEN 600 MG TAB PO PRN (08:48)
[2024-10-28] MEDS: NICOTINE GUM (POLACRILEX) 2 MG GUM BUCCAL PRN (09:06)
--- NOTE | 2024-10-28 11:00 | P.PN ---
Progress Note - Text Progress Note Date: 10/28/24 Interval history: Patient was seen today for psychiatric follow-up. Patient has been wandering the hallways talking to himself responding to internal stimuli. Hygiene and grooming are mildly improving since yesterday. Patient has been taking his medications. Claims that he was feeling "angry" after he took the "mad honey" from where he purchased it in the store. He claims that he was "just tripping" and believes that [facility] is violating his rights. He was mildly paranoid today. Continues to be bizarre, illogical. Claims that "if I hear voices and see things that is okay because that is my rastafari". He is claiming that he is hearing voices however is not claiming what they are saying. Continues to be pacing the hallway. Denies any suicidal homicidal ideations intent or plan. MENTAL STATUS EXAM: General Appearance: Patient appears to be stated age, unkempt, fair hygiene and grooming. Behavior: Patient is attempting to cooperate. He has been walking around the unit. Bizarre, responding to neutral stimuli Speech: Patient's speech is fluent, loud, rapid, and non-pressured. Mood/Affect: Patient reports their mood is "great", affect is congruent and constricted. Suicidality/Homicidality: Patient denies having any homicidal ideation intent or plan. He denies suicidal ideation, intent or plan Perceptions: Patient admits to visual hallucinations and denies any auditory hallucinations. Though content/process: There is evidence of grandiose and bizarre delusional thought content. Memory and concentration: AOX3, grossly intact for the purposes of this session. Judgment and insight: poor chronically IMPRESSIONS: Schizoaffective disorder, bipolar type Cannabis Use disorder Amphetamine use disorder Hallucinogen use disorder Cocaine use disorder Nicotine dependence PLAN: -Patient is admitted under voluntary status to MHU for stabilization of psychiatric symptoms and safety. Patient has signed adult voluntary form and medication consent and is placed in patient's chart. -Medications: Fluphenazine decanoate 50 mg IM [id number]. will receive next dose tomorrow. Thorazine 100 mg nightly +50 mg daily for psychosis adjunct. Trazodone 100 mg QHS for sleep. Melatonin 10 mg nightly for sleep. Continue Geodon po/IM Q6H PRN for agitation or acute psychosis. -NRT - nicotine patch -SW on board for discharge planning. Encourage patient to participate in groups to work on coping skills. will have today an interdisciplinary meeting with [facility]/iddt team and marquita to decide on best course of management for patient given several readmissions and increasing severity of impulsivity and mental illness
--- NOTE | 2024-10-28 21:35 | CONS ---
CONSULTATION CHIEF COMPLAINT: Major depression with suicidal attempt. HISTORY OF PRESENT ILLNESS: I thought I had dictated this note before, but apparently not. The patient's history can be found in the documents accompanying him from the medical floor. He was admitted with an overdose and he was comatose. He slowly became more awake and alert and he was seen by Psychiatry. He denied being suicidal, but this was not the opinion of the psychiatrist, and he was transferred to the floor. REVIEW OF SYSTEMS: He has had no headaches, chest pain, shortness of breath, abdominal pain, nausea, vomiting, bladder or bowel problems. He has had no seizures. Past medical history, family history and personal and social histories can all be found in his medical records from the floor. PHYSICAL EXAMINATION: VITAL SIGNS: Normal. HEAD, EARS, EYES, NOSE, MOUTH AND THROAT: Normal. CHEST: Clear. CARDIAC: Normal. ABDOMEN: Soft, nontender. EXTREMITIES: Normal. NEUROLOGIC: He is intact. IMPRESSION: 1. Major depression. 2. Legitimate suicide attempt. RECOMMENDATIONS: None. Thank you respectfully, KONG / YOMI: [id number] /
[2024-10-28] MEDS: ACETAMINOPHEN TAB 325 MG TAB PO PRN (22:32)
[2024-10-29] MEDS: fluPHENAZine DECANOATE 25 MG/ML 5ML MDV IM SCH (09:47)
--- NOTE | 2024-10-29 10:33 | P.PN ---
Progress Note - Text Progress Note Date: 10/29/24 Interval history: Patient was seen today for psychiatric follow-up. Patient was seen near the [facility] wandering hallways. He appears to be responding to internal stimuli, hygiene and grooming appear to be improving a bit today. He claims that he is tolerating medications fairly well. He was fairly focused on discharge. Claims that he was able to sleep last night with the medications, has been eating. Continues to say bizarre things at times, often illogical during conversation. He is claiming that he is hearing voices however is not claiming what they are saying. Continues to be pacing the hallway. Denies any suicidal homicidal ideations intent or plan. MENTAL STATUS EXAM: General Appearance: Patient appears to be stated age, unkempt, fair hygiene and grooming. Behavior: Patient is attempting to cooperate. He has been walking around the unit. Bizarre, responding to neutral stimuli less today Speech: Patient's speech is fluent, and non-pressured. Mood/Affect: Patient reports their mood is "ok", affect is congruent and constricted. Suicidality/Homicidality: Patient denies having any homicidal ideation intent or plan. He denies suicidal ideation, intent or plan Perceptions: Patient denies visual hallucinations and admits to hearing auditory hallucinations. Though content/process: There is evidence of grandiose and bizarre delusional thought content. Memory and concentration: AOX3, grossly intact for the purposes of this session. Judgment and insight: poor chronically, improving mildly IMPRESSIONS: Schizoaffective disorder, bipolar type Cannabis Use disorder Amphetamine use disorder Hallucinogen use disorder Cocaine use disorder Nicotine dependence PLAN: -Patient is admitted under voluntary status to MHU for stabilization of psychiatric symptoms and safety. Patient has signed adult voluntary form and medication consent and is placed in patient's chart. -Medications: Fluphenazine decanoate 50 mg IM [id number], last dose received on 10/29, next dose will be due on 11/09. Thorazine 100 mg nightly +50 mg daily for psychosis adjunct. Trazodone 100 mg QHS for sleep. Melatonin 10 mg nightly for sleep. Continue Geodon po/IM Q6H PRN for agitation or acute psychosis. -NRT - nicotine patch -SW on board for discharge planning. Encourage patient to participate in groups to work on coping skills. [facility] will be looking at out of [facility] placement.
--- NOTE | 2024-10-30 11:57 | P.PN ---
Progress Note - Text Progress Note Date: 10/30/24 Interval history: Patient was seen today for psychiatric follow-up. Patient continues to be near the nurses desk, talking to other patients. Noted to be talking to himself again today. He was agreeable to speak to software writer today, was fairly focused on discharge. Claims that there are "other people out there that I need to save". He claims that people are "JEANE". He continues to have poor reality testing remains impulsive. Responding to internal stimuli in the hallways talking to himself. Mildly improving hygiene and grooming continues to be fairly cooperative. Asking for discharge today. Claims that he slept okay last night. He is developing a tremor in his right hand, he claims that he is tolerating medications fairly well. has been eating. Continues to say bizarre things at times, often illogical during conversation. Denies hearing any voices, denies any visual hallucinations. Denies any suicidal homicidal ideations intent or plan. MENTAL STATUS EXAM: General Appearance: Patient appears to be stated age, unkempt, fair hygiene and grooming. Behavior: Patient is attempting to cooperate. He has been walking around the unit. Bizarre, responding to internal stimuli less today Speech: Patient's speech is fluent, and non-pressured. Mood/Affect: Patient reports their mood is "great", affect is congruent and constricted. Suicidality/Homicidality: Patient denies having any homicidal ideation intent or plan. He denies suicidal ideation, intent or plan Perceptions: Patient denies visual hallucinations and Nu[place] any hearing auditory hallucinations. Though content/process: There is evidence of grandiose and bizarre delusional thought content. Improving mildly Memory and concentration: AOX3, grossly intact for the purposes of this session. Judgment and insight: poor/impulsive chronically, improving mildly IMPRESSIONS: Schizoaffective disorder, bipolar type Cannabis Use disorder Amphetamine use disorder Hallucinogen use disorder Cocaine use disorder Nicotine dependence PLAN: -Patient is admitted under voluntary status to MHU for stabilization of psychiat jeremiah symptoms and safety. Patient has signed adult voluntary form and medication consent and is placed in patient's chart. -Medications: Fluphenazine decanoate 50 mg IM [id number], last dose received on 10/29, next dose will be due on 11/09. decrease Thorazine 50 mg nightly +50 mg daily for psychosis adjunct. increase Trazodone 200 mg QHS for sleep. Melatonin 10 mg nightly for sleep. Continue Geodon po/IM Q6H PRN for agitation or acute psychosis. -NRT - nicotine patch - on board for discharge planning. Encourage patient to participate in groups to work on coping skills. [facility] will be looking at out of [facility] fdc placement. likely discharge either saturday vs saturday if patient has a fdc that he is accepted to.
[2024-10-30] MEDS: LORazepam 1 MG TAB PO PRN (12:57)
[2024-10-30] MEDS: ZIPRASIDONE 40 MG CAP PO PRN (12:58)
[2024-10-30] MEDS ORDERED: traZODone HCL 50 MG TAB PO PRN (13:52)
[2024-10-30] MEDS: OLANZapine 10 MG TAB PO ONE (18:54)
[2024-10-30] MEDS ORDERED: traZODone HCL 100 MG TAB PO SCH (21:00)
[2024-10-30] MEDS ORDERED: chlorproMAZINE 25 MG TAB PO SCH (21:00)
[2024-10-30] MEDS: OLANZapine 10 MG TAB PO SCH (22:12)
--- NOTE | 2024-10-31 10:52 | P.PN ---
Subjective Progress Note Date: 10/31/24 Principal diagnosis: schizoaffective Polysubstance use special E hallucinogenic's which contributed to his psychosis nterval history: Patient was seen today for psychiatric follow-up. Noted to be talking to himself today. He was agreeable to speak to technical document writer today, was fairly focused on our discussion and he has some questions about his medications and illness.Claims that he slept okay last night. He is developing a tremor in his right hand, he claims that he is tolerating medications fairly well. has been eating. Continues to say bizarre things at times, often illogical during conversation. Denies hearing any voices, denies any visual hallucinations. Denies any suicidal homicidal ideations intent or plan.he felt that the only time he has voices that are talking to him is when he snorts substances up his nose or uses hallucinogens. He said his mother had bipolar and he agrees with the possibility that he might have bipolar also. He says that since he been taking the lithium he does urinate little more frequently MENTAL STATUS EXAM: eye contact is good General Appearance: Patient appears to be stated age, unkemptdressed in a hospital gown, fair hygiene and grooming. Behavior: Patient is attempting to cooperate. He has been walking around the unit. Bizarre, responding to internal stimuli less today Speech: Patient's speech is fluent, and non-pressured. Mood/Affect: Patient reports their mood is "great", affect is congruent and constricted. however he says that his mood fluctuates that he was getting irritable and he took the lithium and he calmed down and wondered if it could work that fast. Suicidality/Homicidality: Patient denies having any homicidal ideation intent or plan. He denies suicidal ideation, intent or plan Perceptions: Patient denies visual hallucinations and Nuys any hearing auditory hallucinations. Though content/process: There is evidence of grandiose and bizarre delusional thought content. Improving mildly Memory and concentration: AOX3, grossly intact for the purposes of this session. Judgment and insight: poor/impulsive chronically, improving mildly IMPRESSIONS: Schizoaffective disorder, bipolar type Cannabis Use disorder Amphetamine use disorder Hallucinogen use disorder Cocaine use disorder Nicotine dependence PLAN: no change in medication -Patient is admitted under voluntary status to MHU for stabilization of psychiatric symptoms and safety. Patient has signed adult voluntary form and medication consent and is placed in patient's chart. -Medications: Fluphenazine decanoate 50 mg IM [id number], last dose received on 10/29, next dose will be due on 11/09. decrease Thorazine 50 mg nightly +50 mg daily for psychosis adjunct. increase Trazodone 200 mg QHS for sleep. Melatonin 10 mg nightly for sleep. Continue Geodon po/IM Q6H PRN for agitation or acute psychosis. -NRT - nicotine patch - on board for discharge planning. Encourage patient to participate in groups to work on coping skills. [facility] will be looking [facility] out [facility] [place]. likely discharge either saturday vs saturday if patient has a [place] that he is accepted to. Objective - Vital Signs Vital signs: Vital Signs Temp 98.1 F 10/31/24 08:34 Pulse 101 H 10/31/24 08:34 Resp 20 10/31/24 08:34 BP 119/45 10/31/24 08:34 Pulse Ox 98 10/29/24 22:00 FiO2
--- NOTE | 2024-11-01 08:06 | P.PN ---
Subjective Progress Note Date: 11/01/24 Principal diagnosis: schizoaffective Polysubstance use special E hallucinogenic's which contributed to his psychosis nterval history: Patient was seen today for psychiatric follow-up. Noted to be talking to himself today. He was agreeable to speak to selling underwriter today. .Claims that he slept okay last night. He is developing a tremor in his right hand, he claims that he is tolerating medications fairly well. has been eating. Continues to say bizarre things at times, often illogical with loose associations during conversation. Denies hearing any voices, denies any visual hallucinations. Denies any suicidal homicidal ideations intent or plan.he felt that the only time he has voices that are talking to him is when he snorts substances up his nose or uses hallucinogens. He said his mother had bipolar and he agrees with the possibility that he might have bipolar also. He says that since he been taking the lithium he does urinate little more frequently. Today was complaining of feeling nauseated he did not throw up there was no gagging during the session saw maybe feet something for breakfast that might help. MENTAL STATUS EXAM: eye contact is good General Appearance: Patient appears to be stated age, unkemptdressed in a hospital gown, fair hygiene and grooming. Behavior: Patient is attempting to cooperate. He has been walking around the unit. Bizarre, responding to internal stimuli less today Speech: Patient's speech is fluent, and non-pressured. Mood/Affect: Patient reports their mood is "great", affect is congruent and constricted. however he says that his mood fluctuates that he was getting irritable and he took the lithium and he calmed down and wondered if it could work that fast. Suicidality/Homicidality: Patient denies having any homicidal ideation intent or plan. He denies suicidal ideation, intent or plan Perceptions: Patient denies visual hallucinations and Nuys any hearing auditory hallucinations. Though content/process: There is evidence of grandiose and bizarre delusional thought content. Improving mildly Memory and concentration: AOX3, grossly intact for the purposes of this session. Judgment and insight: poor/impulsive chronically, improving mildly IMPRESSIONS: Schizoaffective disorder, bipolar type Cannabis Use disorder Amphetamine use disorder Hallucinogen use disorder Cocaine use disorder Nicotine dependence PLAN: no change in medicationI did order a lithium level this morning but I don't think that is causing any of the trouble with shaking or nausea as his dose is quite low the patient is on olanzapine at 30 at night and also had a Prolixin shot on the but still his brain is racing really fast -Patient is admitted under voluntary status to MHU for stabilization of psychiatric symptoms and safety. Patient has signed adult voluntary form and medication consent and is placed in patient's chart. -Medications: Fluphenazine decanoate 50 mg IM [id number], last dose received on 10/29, next dose will be due on 11/09. decrease Thorazine 50 mg nightly +50 mg daily for psychosis adjunct. increase Trazodone 200 mg QHS for sleep. Melatonin 10 mg nightly for sleep. Continue Geodon po/IM Q6H PRN for agitation or acute psychosis. -NRT - nicotine patch - on board for discharge planning. Encourage patient to participate in groups to work on coping skills. [facility] will be looking at out [facility] halfway placement. likely discharge either saturday vs saturday if patient has a halfway that he is accepted to. the patient is still going so fast that he is not truly control his judgment or his safety. hopefully his medicines will begin to kick in here shortly we may have to bump up the lithium Objective - Vital Signs Vital signs: Vital Signs Temp 98.1 F 10/31/24 08:34 Pulse 101 H 10/31/24 08:34 Resp 20 10/31/24 08:34 BP 119/45 10/31/24 08:34 Pulse Ox 98 10/29/24 22:00 FiO2
[2024-11-02 10:33] VITALS: RESP 16
--- NOTE | 2024-11-02 13:42 | P.PN ---
Progress Note - Text Progress Note Date: 11/02/24 Interval history: Patient was seen today in cross-coverage for Dr. Hughes for psychiatric follow-u p. Patient was found active in the hallway and was agreeable to speak with investment underwriter in the office today. He states he uses hallucinogens as a way to cope. He denies any plans to quit hallucinogens, states he plans to continue using hallucinogens. He appears on edge, repeatedly shaking his legs. He claims he slept well last night. 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 He claims his appetite is "great!", reports he gets $84 dollars per month on his [employer] card. He tends to ramble, makes bizarre statements. 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 He denies auditory hallucinations, but "even if I did, that's part of my reli gion, telepathy...". He denies any visual hallucinations. Denies any suicidal homicidal ideation, intent or plan. [place] level from yesterday 11/01/24 is 0.5. MENTAL STATUS EXAM: General Appearance: Patient appears to be stated age, slender male, unkempt, dressed in casual street attire, fair hygiene and grooming, tattoos on his arms. Behavior: Patient is attempting to cooperate. He has been active, walking the hallways. Repeatedly shakes legs while seated, appears to be voluntary movements since it tends to start/stop with change of topic. Speech: Patient's speech is fluent, talks quickly but non-pressured. Mood/Affect: Patient reports their mood is "great!", affect is odd and constricted. Suicidality/Homicidality: Patient denies having any homicidal ideation intent or plan. He denies suicidal ideation, intent or plan. Perceptions: Patient denies visual hallucinations and denies any hearing auditory hallucinations, but states if he did hear voices it would be a part of his denominational. Thought content/process: There is evidence of grandiose and bizarre delusional thought content about bringing people back to life. Rambles but redirectable. Memory and concentration: AOX3, grossly intact for the purposes of this session. Judgment and insight: chronically poor/impulsive, improving mildly IMPRESSIONS: Schizoaffective disorder, bipolar type Cannabis Use disorder Amphetamine use disorder Hallucinogen use disorder Cocaine use disorder Nicotine dependence PLAN: -Patient is admitted under voluntary status to MHU for stabilization of psychiatric symptoms and safety. Patient has signed adult voluntary form and medication consent and is placed in patient's chart. -Medications: Continue Fluphenazine decanoate 50 mg IM [id number] for psychosis, last dose received on 10/29, next dose will be due on 11/09. Continue Zyprexa 20 mg QHS for psychosis/mood. Continue [place] 450 mg daily for mood. [place] level checked 11/01/24 is 0.5. Continue Trazodone 150 mg QHS PRN for sleep, Melatonin 10 mg nightly for sleep, Geodon po/IM Q6H PRN for agitation or acute psychosis. -NRT - nicotine patch - on board for discharge planning. Encourage patient to participate in groups to work on coping skills. -[facility] will be looking at out of [facility] senior living placement. Likely discharge this week if patient has been accepted to a senior living.
[2024-11-03 08:27] VITALS: BP 123/84; PULSE 91; TEMP 96.4
--- NOTE | 2024-11-03 11:38 | P.DS ---
Providers Date of admission: 10/27/24 08:51 Expected date of discharge: 11/03/24 Attending physician: Lion Hughes MD Consults: 10/27/24 08:59 Consult Physician Routine Consulting Provider: Duke Archibald Consult Reason/Comments: H and P Do you want consulting provider notified?: Yes Primary care physician: Duke Archibald - Discharge Diagnosis(es) (1) Schizoaffective disorder, bipolar type Current Visit: Yes Status: Acute Priority: High (2) Cannabis use disorder Current Visit: Yes Status: Acute Priority: High (3) Amphetamine use disorder, moderate Current Visit: Yes Status: Acute Priority: Medium (4) Hallucinogen abuse Current Visit: Yes Status: Acute Priority: High (5) Cocaine use disorder Current Visit: Yes Status: Acute Priority: High (6) Nicotine dependence Current Visit: Yes Status: Acute Priority: Low Hospital Course: Admission HPI: Admission note was completed by leader writer "48 year old male with extensive psychiatric history, currently living in a hotel, unemployed. Patient has history of schizoaffective disorder, polysubstance abuse including hallucinogens and abuse. Patient was just discharged from the mental health unit yesterday on 10/26, is closely followed by [facility] IDDT team. Patient was evaluated yesterday by EPS nurse and as per note "Pt. came to ER complaining of a broken foot and a cough. No foot trama evident. Pt well known to EPS and was just discharged from MHU yesterday 10/26/2024. Pt speech is rapid and pressured. Pt immediately began apologizing to leader writer for "Doing that stuff" and "Not believing the truth". Pt claims to have used cannabis and Mad Honey (a psychedelic) when he was discharged yesterday. Also states that he has been having sex with reptiles. Thought process is disorganized and delusional." Patient was admitted to the mental health unit this morning, was seen by leader writer in his room. Patient had the blankets covering his face, he agreed to pull it down and talk to leader writer briefly. He appeared to be disheveled in appearance, fairly sedated. When asked about what it occurred when he left the hospital he states that "I was just having fun". Claims that he was wandering downtown, claims that he was "tripping eating and smoking". He was fairly delusional, illogical. Having loose associations. He claims that he cannot member what drugs he took. He spoke about "[place] Krystian the " and also was speaking about "hearing voices telepathically". He is denying any suicidal homicidal ideations intent or plan. He has a history of polysubstance abuse including hallucinogens, cocaine, cannabis and alcohol. Also uses nicotine." Hospital course: Upon admission to the unit patient was directable and agreeable to commence treatment and signed adult voluntary form. Patient is currently on a active deferral. Patient was initially psychotic, bizarre however with time and treatment patient got along well with other patients on the unit and followed unit protocol. Patient was compliant with the medications and denied any side effects throughout hospital course. Patient was started on fluphenazine decanoate 50 mg IM every 10 days for psychosis, given dose on 10/29, next dose will be due on 11/09. Patient was started on Zyprexa 20 mg nightly for psychosis/mood stabilization/sleep, lithium 450 mg daily for mood stabilization, melatonin 10 mg nightly for sleep. Patient spoke of his stressors and engaged in therapy both group/activity therapy. Patient was also seen by medical team for history and physical exam. Throughout the course of the hospitalization patient gradually improved with regards to mood, anxiety, psychosis, sleep and returned back to their baseline level of functioning. On the day of discharge patient denied any suicidal or homicidal ideations intent or plan denied any auditory or visual hallucinations. Patient endorsed wanting to live for his health and his housing. The patient denied any access to guns or weapons. Patient denied any paranoia and did not endorse any delusions. Patient does have a significant history of substance abuse and was counseled on abstaining from all substances including alcohol and marijuana. Patient was offered however declined inpatient substance-abuse rehab. Patient elected to do outpatient substance use treatment program through their outpatient provider.. Patient was also counseled on the medications and need for regular compliance and was encouraged to follow-up with their outpatient appointment for mental health and also for primary care. Patient will be discharged back to the [facility] where he was staying, guardian and [facility] will continue to look for out of [place] care home placement. Mental status exam: General Appearance: Patient appears to be thin, several tattoos, balding, stated age is alert, pleasant, and cooperative. Patient is in no acute distress and has improved hygiene and grooming Behavior: Patient is calmly seated without any agitated behavior. Speech: Patient's speech is fluent and nonpressured. Mood/Affect: Patient reports their mood is "good", affect is congruent and euthymic. Suicidality/Homicidality: Patient denies having any suicidal or homicidal ideation intent or plan. Perceptions: Patient denies any auditory or visual hallucinations. Though content/process: There is no evidence of any delusional thought content and thought process is linear and goal-directed. Memory and concentration: AOX3, grossly intact for the purposes of this session. Can spell "WORLD" backwards correctly. Judgment and insight: Chronically poor, however has improved with guarded prognosis Impression: Schizoaffective disorder bipolar type Cannabis use disorder amphetamine use disorder moderate Hallucinogen use Cocaine use disorder Nicotine dependence Plan: -Continue with discharge today as patient has improved and stabilized psychiatrically and is not currently an imminent threat to themself and/or others. Patient will remain at chronically elevated risk for harm to self and/or others due to their impulsivity and substance abuse. -Continue medications: prolixin Decanoate 50 mg IM, q. 10 days last dose given on 10/29 next dose will be due on 11/09. Zyprexa 20 mg nightly for psychosis/mood stabilization/sleep, lithium 450 mg daily for mood stabilization, melatonin 10 mg nightly for sleep. Patient will have medication sent to [place] and IDDT team will make sure patient only recieves 2-3 days of his medications at a time to prevent overdose or misuse of his meds. -Patient was counseled on the need for medication compliance and appropriate follow-up at mental health and also primary care for medical issues. Patient verbalized understanding and agreed. -Social work to help coordinate patients discharge today. also to ensure safe home environment that guns/weapons are either removed from the home or locked away. Social work also to arrange for patients follow up appointments with [facility] for psychiatric care along with follow up with primary care provider. -Patient counseled on abstaining from recreational drugs and marijuana and alcohol. Was informed/educated on the adverse effects on their physical and mental health. Patient verbally agreed and understood. Patient was offered substance abuse treatment however declined at this time. -Patient was instructed to return to the hospital or seek immediate medical care if their psychiatric or medical symptoms do worsen or reoccur. Allergies Allergy/AdvReac Type Severity Reaction Status Date / Time cat dander Allergy Itching Verified 10/27/24 04:39 oxcarbazepine AdvReac seizures Verified 10/27/24 04:39 [From Trileptal] paliperidone [From Invega] AdvReac delusional Verified 10/27/24 04:39 risperidone [From Risperdal] AdvReac seizures Verified 10/27/24 04:39 Laboratory Results [place] 0.5 mmol/L 11/01/24 09:03 SARS-CoV-2 (PCR) Not Detected (Not Detectd) 10/27/24 06:30 Vital Signs Temp 96.4 F L 11/03/24 08:26 Pulse 91 11/03/24 08:26 Resp 16 11/02/24 19:45 BP 123/84 11/03/24 08:26 Pulse Ox 97 11/03/24 08:26 FiO2 Patient Condition at Discharge: Stable Plan - Discharge Summary Discharge Rx Participant: No New Discharge Prescriptions: New Cephalexin [Keflex] 500 mg PO Q6HR 1 Days #24 cap Melatonin 10 mg PO HS 30 Days #60 tab fluPHENAZine decanoate [Prolixin Decanoate] 50 mg IM Q10D #1 ml OLANZapine [ZyPREXA] 20 mg PO HS 30 Days #30 tablet Continue Nicotine Gum (Polacrilex) [Nicorette] 2 mg BUCCAL Q4HR PRN 30 Days #180 pieceofgum PRN Reason: Nicotine Cravings [place] Carbonate ER [Lithobid] 450 mg PO DAILY 30 Days #30 tab Pantoprazole [Protonix] 40 mg PO AC-BID 30 Days #60 tab Discontinued chlorproMAZINE [Thorazine] 100 mg PO HS 30 Days #30 tab traZODone HCL [Desyrel] 100 mg PO HS 30 Days #30 tab Melatonin 10 mg PO HS 30 Days #30 ml fluPHENAZine decanoate [Prolixin Decanoate] 50 mg IM Q10D #1 ml chlorproMAZINE HCL [Thorazine] 50 mg PO DAILY 30 Days #30 tablet Discharge Medication List Cephalexin [Keflex] 500 mg PO Q6HR 1 Days #24 cap 10/27/24 [Rx] [place] Carbonate ER [Lithobid] 450 mg PO DAILY 30 Days #30 tab 11/03/24 [Rx] Melatonin 10 mg PO HS 30 Days #60 tab 11/03/24 [Rx] Nicotine Gum (Polacrilex) [Nicorette] 2 mg BUCCAL Q4HR PRN 30 Days #180 pieceofgum 11/03/24 [Rx] OLANZapine [ZyPREXA] 20 mg PO HS 30 Days #30 tablet 11/03/24 [Rx] Pantoprazole [Protonix] 40 mg PO AC-BID 30 Days #60 tab 11/03/24 [Rx] fluPHENAZine decanoate [Prolixin Decanoate] 50 mg IM Q10D #1 ml 11/03/24 [Rx] Follow up Appointment(s)/Referral(s): Duke Archibald MD [Primary Care Provider] - 1-2 days Patient Instructions/Handouts: How to Stop Smoking (DC), Cellulitis (ED), Schizoaffective Disorder (DC) Activity/Diet/Wound Care/Special Instructions: [facility] Discharge Info Avoid the use of street drugs and alcohol. Take all medications as prescribed. When you are in need of refills on your medications, please contact your outpatient medical provider and/or outpatient psychiatrist. Please go to your scheduled outpatient appointments for aftercare treatment. If symptoms return or become worse, call the crisis line at or and/or visit the nearest emergency room for assistance. [place] Suicide and Crisis Lifeline - call or text 930. Discharge Disposition: HOME SELF-CARE
--- NOTE | 2024-11-04 14:55 | CDI ---
Documentation Clarification Form Date: 11/04/2024 02:40:19 PM From: Dagmar Chavira Phone: Admit Date: 10/27/2024 08:51:00 AM Patient Name: Presley Elizalde Visit Number: [id number] Discharge Date: 11/03/2024 01:37:00 PM ATTENTION: The Clinical Documentation Specialists (CDI) and [facility] Coding Staff appreciate your assistance in clarifying documentation. Please respond to the clarification below the line at the bottom and electronically sign. The CDI & [facility] Coding staff will review the response and follow-up if needed. Please note: Queries are made part of the Legal Health Record. If you have any questions, please contact the author of this message via ITS. Doctor/Provider: Lion Hughes There is documentation of overdose and suicide attempt. in 10/28/2024 consult note . Additional clarification is requested. History/Risk Factors: Patient has history ofschizoaffective disorder,polysubstance abuse including hallucinogens andabuse. Patient was just discharged from the mental health unit yesterday on 10/26, is closely followed by [facility] ID[facility] team. Patient was evaluated yesterday [facility] and as per note "Pt. came to ER complaining of abroken footand acough Clinical Indicators: On 10/28 consult note -He was admitted with anoverdoseand he wascomatose. He slowly became more awake and alert and he was seen by Psychiatry. Hedeniedbeingsuicidal, but this was not the opinion of the psychiatrist, and he was transferred to the floor. Legitimatesuicide attempt. On 10/28 pn -Patient was seen today for psychiatricfollow-up. Patient has beenwandering the hallways talking to himself responding to internal stimuli Claims that he was feeling "angry" after he took the "mad honey" from where he purchased it in the store. He claims that he was "justtripping" and believes that [facility] is violating his rights. He was mildlyparanoidtoday. Continues to be bizarre, illogical. Claims that "if I hear voices and see things that is okay because that is my taoist". He is claiming that he is hearing voices however is not claiming what they are saying. Continues to be pacing the hallway. Denies anysuicidalhomicidal ideationsintent or plan. On 11/01 pn -Schizoaffective disorder, bipolar type Cannabis Use disorder Amphetamine usedisorder Hallucinogen use disorder Claims that he slept okay last night. He is developing atremorin his right hand, he claims that he is tolerating medications fairly well. Has been eating. Continues to say bizarre things at times, often illogical withloose associations during conversation. Denies hearing any voices,denies anyvisual hallucinations. Denies anysuicidalhomicidal ideationsintent or plan Treatment: Fluphenazine decanoate 50 mg IM [id number]. will receive next dose today. Continue with Thorazine 100 mg nightly +50 mg daily forpsychosisadjunct. Continue Trazodone 100 mg QHS for sleep. Melatonin 10 mg nightly for sleep. Continue Geodon 20 mg po/IM Q6H PRN foragitationoracute psychosis. Can you please clarify Overdose and suicide attempt? [ ] No, Overdose and suicidal attempt not present [ ] Yes, Overdose and suicidal attempt was present on admission [ ] Other, please specify [ X] Unable to determine (Template Last Revised: October 2020) MTDD
== END 2024-11-03 13:37 | disposition home or self-care (01) | DRG 885 ==
LOC: EC 04:34 → 3MHU 08:51
PROVIDERS: ADMIT Psychiatry & Neurology Psychiatry; ATTEND Psychiatry & Neurology Psychiatry
DX: F25.0 Schizoaffective disorder, bipolar type (principal); L03.116 Cellulitis of left lower limb; G40.909 Epilepsy, unspecified, not intractable, without status epilepticus; F12.10 Cannabis abuse, uncomplicated; F15.20 Other stimulant dependence, uncomplicated; Z59.01 Sheltered homelessness; F16.10 Hallucinogen abuse, uncomplicated; F14.10 Cocaine abuse, uncomplicated; F17.200 Nicotine dependence, unspecified, uncomplicated; Z56.0 Unemployment, unspecified; Z88.8 Allergy status to other drugs, medicaments and biological substances; Z91.048 Other nonmedicinal substance allergy status
CPT/HCPCS: 80178; 87635; 99285

== ENCOUNTER 2024-11-15 16:33 | Emergency (ER) | payer MEDICARE, OTHER ==
[2024-11-15 16:41] VITALS: BP 124/84; PULSE 101; RESP 18; TEMP 97.9
--- NOTE | 2024-11-15 17:12 | ED ---
Psych HPI - General Chief Complaint: Psychiatric Symptoms Stated Complaint: Mental Health Time Seen by Provider: 11/15/24 17:09 Source: patient, EMS, RN notes reviewed Mode of arrival: EMS - History of Present Illness Initial Comments: 48-year-old male presenting for suicidal ideation. States he does not have a specific plan to kill himself however does endorse suicidal thoughts. Denies homicidal ideation. No medical complaints at this time. - Related Data Previous Rx's Medication Instructions Recorded Cephalexin [Keflex] 500 mg PO Q6HR 1 Days #24 cap 10/27/24 [place] Carbonate ER [Lithobid] 450 mg PO DAILY 30 Days #30 tab 11/03/24 Melatonin 10 mg PO HS 30 Days #60 tab 11/03/24 Nicotine Gum (Polacrilex) 2 mg BUCCAL Q4HR PRN 30 Days #180 11/03/24 [Nicorette] pieceofgum OLANZapine [ZyPREXA] 20 mg PO HS 30 Days #30 tablet 11/03/24 Pantoprazole [Protonix] 40 mg PO AC-BID 30 Days #60 tab 11/03/24 fluPHENAZine decanoate [Prolixin 50 mg IM Q10D #1 ml 11/03/24 Decanoate] Allergies Allergy/AdvReac Type Severity Reaction Status Date / Time cat dander Allergy Itching Verified 10/27/24 04:39 oxcarbazepine AdvReac seizures Verified 10/27/24 04:39 [From Trileptal] paliperidone [From Invega] AdvReac delusional Verified 10/27/24 04:39 risperidone [From Risperdal] AdvReac seizures Verified 10/27/24 04:39 Review of Systems ROS Statement: Those systems with pertinent positive or pertinent negative responses have been documented in the HPI. ROS Other: All systems not noted in ROS Statement are negative. Past Medical History Past Medical History: GERD/Reflux, Musculoskeletal Disorder, Seizure Disorder Additional Past Medical History / Comment(s): scoliosis, herpes, hiatal hernia, migraines, Hepatitis C History of Any Multi-Drug Resistant Organisms: None Reported Past Surgical History: No Surgical Hx Reported Additional Past Surgical History / Comment(s): EGD Past Anesthesia/Blood Transfusion Reactions: No Reported Reaction Past Psychological History: Anxiety, Bipolar, Depression, Schizoaffective Disorder Smoking Status: Current every day smoker, Vaper Past Alcohol Use History: Unable to Obtain Past Drug Use History: Cocaine, Marijuana, Methamphetamine - Past Family History Mother History Unknown: Yes Family Medical History: No Reported History Additional Family Medical History / Comment(s): from suicide Father History Unknown: Yes Family Medical History: No Reported History Additional Family Medical History / Comment(s): Reports that he is currently in the stages of dying- but wont clarify further. Inititally the patient stated his father was . General Exam Limitations: no limitations General appearance: alert, in no apparent distress Head exam: Present: atraumatic, normocephalic, normal inspection Eye exam: Present: normal appearance, PERRL, EOMI. Absent: scleral icterus, conjunctival injection, periorbital swelling Neurological exam: Present: alert, oriented X3 Psychiatric exam: Present: normal affect, normal mood, suicidal ideation. Absent: homicidal ideation Skin exam: Present: warm, dry, intact, normal color. Absent: rash Course Vital Signs 11/15/24 16:36 Temperature 97.9 F Pulse Rate 101 H Respiratory 18 Rate Blood Pressure 124/84 O2 Sat by Pulse 98 Oximetry Medical Decision Making - Medical Decision Making Was pt. sent in by a medical professional or institution (, PA, PAYROLL SECRETARY, urgent care, hospital, or fci...) When possible be specific @ -No Did you speak to anyone other than the patient for history (EMS, parent, family, police, friend...)? What history was obtained from this source @ -No Did you review nursing and triage notes (agree or disagree)? Why? @ -I reviewed and agree with nursing and triage notes Were old charts reviewed (outside hosp., previous admission, EMS record, old EKG, old radiological studies, urgent care reports/EKG's, fci records)? Report findings @ -No old charts were reviewed Differential Diagnosis (chest pain, altered mental status, abdominal pain women, abdominal pain men, vaginal bleeding, weakness, fever, dyspnea, syncope, headache, dizziness, GI bleed, back pain, seizure, CVA, palpatations, mental health, musculoskeletal)? @ -Differential Mental Health Depression, anxiety, bipolar, psychosis, schizophrenia, borderline personality, situational depression, adjustment disorder, behavioral disorder, brain tumor, malingering, substance abuse, encephalopathy, medication reaction, dementia, hypothyroidism, degenerative neurologic disorder, lupus.... This is not meant to be all-inclusive list EKG interpreted by me (3pts min.). @ -None X-rays interpreted by me (1pt min.). @ -None done CT interpreted by me (1pt min.). @ -None done U/S interpreted by me (1pt. min.). @ -None done What testing was considered but not performed or refused? (CT, X-rays, U/S, labs)? Why? @ -None What meds were considered but not given or refused? Why? @ -None Did you discuss the management of the patient with other professionals (professionals i.e. Dr., PA, PAYROLL SECRETARY, lab, RT, psych nurse, social secretary, flow match sofa cutter, teacher, president and chief operating officer, case supervisor)? Give summary @ -I spoke with Clau from EPS who recommends discharge with safety plan Was smoking cessation discussed for >3mins.? @ -No Was critical care preformed (if so, how long)? @ -No Were there social determinants of health that impacted care today? How? (Homelessness, low income, unemployed, alcoholism, drug addiction, transportation, low edu. Level, literacy, decrease access to med. care, usp, rehab)? @ -No Was there de-escalation of care discussed even if they declined (Discuss DNR or withdrawal of care, Hospice)? DNR status @ -No What co-morbidities impacted this encounter? (DM, HTN, Smoking, COPD, CAD, Cancer, CVA, ARF, Chemo, Hep., AIDS, mental health diagnosis, sleep apnea, morbid obesity)? @ -None Was patient admitted / discharged? Hospital course, mention meds given and route, prescriptions, significant lab abnormalities, going to OR and other pertinent info. @ -Discharge. 48-year-old male presenting for suicidal ideation without plan. No medical complaints at this time. Patient is medically cleared to be seen by EPS. I spoke with Clau from EPS who recommends discharge with safety plan. I agree with this plan. Case was discussed with my ED attending Dr. Suárez. Undiagnosed new problem with uncertain prognosis? @ -No Drug Therapy requiring intensive monitoring for toxicity (Heparin, Nitro, Insulin, Cardizem)? @ -No Were any procedures done? @ -No Diagnosis/symptom? @ -Suicidal ideation Acute, or Chronic, or Acute on Chronic? @ -Acute Uncomplicated (without systemic symptoms) or Complicated (systemic symptoms)? @ -Uncomplicated Side effects of treatment? @ -No Exacerbation, Progression, or Severe Exacerbation? @ -No Poses a threat to life or bodily function? How? (Chest pain, [place], [place], pneumonia, PE, COPD, DKA, ARF, appy, cholecystitis, CVA, Diverticulitis, Homicidal, Suicidal, threat to staff... and all critical care pts) @ -Unlikely at this time Disposition Clinical Impression: Suicidal ideation Disposition: HOME SELF-CARE Is patient prescribed a controlled substance at d/c from ED?: No Referrals: None,Stated [Primary Care Provider] - 1-2 days Time of Disposition: 17:41
== END 2024-11-15 17:55 | disposition home or self-care (01) ==
LOC: EC 16:33
DX: R45.851 Suicidal ideations (principal); F17.290 Nicotine dependence, other tobacco product, uncomplicated; Z88.8 Allergy status to other drugs, medicaments and biological substances
CPT/HCPCS: 82075; 99285

== ENCOUNTER 2024-11-19 16:09 | Emergency (ER) | payer MEDICARE, OTHER ==
[2024-11-19 16:27] VITALS: TEMP 98.1
--- NOTE | 2024-11-19 16:49 | ED ---
Dizziness HPI - General Source: patient, EMS, RN notes reviewed, old records reviewed Mode of arrival: EMS Limitations: altered mental status - History of Present Illness MD Complaint: dizziness, lightheadedness Description: sense of movement, off-balance, nausea History of Same: Yes History of Trauma: Yes Severity: moderate Improves With: nothing Associated Symptoms: denies other symptoms <Trent Suárez - Last Filed: 11/19/24 20:21> <Khoa Martinez - Last Filed: 11/19/24 21:17> - General Chief Complaint: Dizziness Stated Complaint: Dizziness Time Seen by Provider: 11/19/24 16:14 - History of Present Illness Initial Comments: This is a 48-year-old male to the ER for evaluation of altered mental status weakness confusion not acting appropriately recent and long history of drug abuse and drug use. Patient states something feels off he feels like his labs may be off or something is wrong Patient denies recent drug use or abuse Patient further admits to suicidal thoughts (Trent Suárez) - Related Data Home Medications Medication Instructions Recorded Confirmed Sertraline [Zoloft] 50 mg PO HS 11/19/24 11/19/24 fluPHENAZine decanoate [Prolixin 50 mg IM Q7D 11/19/24 11/19/24 Decanoate] Allergies Allergy/AdvReac Type Severity Reaction Status Date / Time cat dander Allergy Itching Verified 11/19/24 20:33 oxcarbazepine AdvReac seizures Verified 11/19/24 20:33 [From Trileptal] paliperidone [From Invega] AdvReac delusional Verified 11/19/24 20:33 risperidone [From Risperdal] AdvReac seizures Verified 11/19/24 20:33 Review of Systems ROS Other: All systems not noted in ROS Statement are negative. <Trent Suárez - Last Filed: 11/19/24 20:21> ROS Other: All systems not noted in ROS Statement are negative. <Khoa Martinez - Last Filed: 11/19/24 21:17> ROS Statement: Those systems with pertinent positive or pertinent negative responses have been documented in the HPI. Past Medical History Past Medical History: GERD/Reflux, Musculoskeletal Disorder, Seizure Disorder Additional Past Medical History / Comment(s): scoliosis, herpes, hiatal hernia, migraines, Hepatitis C History of Any Multi-Drug Resistant Organisms: None Reported Past Surgical History: No Surgical Hx Reported Additional Past Surgical History / Comment(s): EGD Past Anesthesia/Blood Transfusion Reactions: No Reported Reaction Past Psychological History: Anxiety, Bipolar, Depression, Schizoaffective Disorder Smoking Status: Current every day smoker, Vaper Past Alcohol Use History: Rare Past Drug Use History: Cocaine, Heroin, IV Drug Use, Marijuana, Methamphetamine, Opiates, Prescription Drug Abuse - Past Family History Mother History Unknown: Yes Family Medical History: No Reported History Additional Family Medical History / Comment(s): from suicide Father History Unknown: Yes Family Medical History: No Reported History Additional Family Medical History / Comment(s): Reports that he is currently in the stages of dying- but wont clarify further. Inititally the patient stated his father was . <Trent Suárez Last Filed: 11/19/24 20:21> General Exam General appearance: alert, in no apparent distress Head exam: Present: atraumatic, normocephalic, normal inspection Eye exam: Present: normal appearance, PERRL, EOMI. Absent: scleral icterus, conjunctival injection, periorbital swelling ENT exam: Present: normal exam, mucous membranes moist Neck exam: Present: normal inspection. Absent: tenderness, meningismus, lymphadenopathy Respiratory exam: Present: normal lung sounds bilaterally. Absent: respiratory distress, wheezes, rales, rhonchi, stridor Cardiovascular Exam: Present: regular rate, normal rhythm, normal heart sounds. Absent: systolic murmur, diastolic murmur, rubs, gallop, clicks GI/Abdominal exam: Present: soft, normal bowel sounds. Absent: distended, tenderness, guarding, rebound, rigid Extremities exam: Present: normal inspection, full ROM, normal capillary refill. Absent: tenderness, pedal edema, joint swelling, calf tenderness Back exam: Present: normal inspection Neurological exam: Present: alert, oriented X3, CN II-XII intact Psychiatric exam: Present: normal affect, normal mood Skin exam: Present: warm, dry, intact, normal color. Absent: rash <Trent Suárez Last Filed: 11/19/24 20:21> Course <Trent Suárez - Last Filed: 11/19/24 20:21> Vital Signs 11/19/24 11/19/24 16:14 18:06 Temperature 98.1 F Pulse Rate 87 81 Respiratory 18 14 Rate Blood Pressure 138/101 127/86 O2 Sat by Pulse 97 98 Oximetry - Reevaluation(s) Reevaluation #1: 11/19/24 20:17 Medical records reviewed (Trent Suárez) Reevaluation #2: 11/19/24 20:17 Medically cleared for psychiatric evaluation (Trent Suárez) Reevaluation #3: Was pt. sent in by a medical professional or institution (, [facility], MANAGER MARKETING, urgent care, hospital, or intermediate...) When possible be specific @ -no Did you speak to anyone other than the patient for history (EMS, parent, family, police, friend...)? What history was obtained from this source @ -no Did you review nursing and triage notes (agree or disagree)? Why? @ -agree Are old charts reviewed (outside hosp., previous admission, EMS record, old EKG, old radiological studies, urgent care reports/EKG's, intermediate records)? Report findings @ -yes Differential Diagnosis (chest pain, altered mental status, abdominal pain women, abdominal pain men, vaginal bleeding, weakness, fever, dyspnea, syncope, heada katrina, dizziness, GI bleed, back pain, seizure, CVA, palpatations, mental health, musculoskeletal)? @ -prior EKG interpreted by me (3pts min.). @ -yes X-rays interpreted by me (1pt min.). @ -yes negative for acute disease CT interpreted by me (1pt min.). @ -no U/S interpreted by me (1pt. min.). @ -no What testing was considered but not performed or refused? (CT, X-rays, U/S, labs)? Why? @ -none What meds were considered but not given or refused? Why? @ -none Did you discuss the management of the patient with other professionals (professionals i.e. [facility] Regan, MANAGER MARKETING, lab, RT, psych nurse, social contact worker, process cheese cooker, teacher, [employer] officer, business case analyst)? Give summary @ -no Was smoking cessation discussed for >3mins.? @ -no Was critical care preformed (if so, how long)? @ -no Were there social determinants of health that impacted care today? How? (Homelessness, low income, unemployed, alcoholism, drug addiction, transportation, low edu. Level, literacy, decrease access to med. care, correction, rehab)? @ -none Was there de-escalation of care discussed even if they declined (Discuss DNR or withdrawal of care, Hospice)? DNR status @ -no What co-morbidities impacted this encounter? (DM, HTN, Smoking, COPD, CAD, Cancer, CVA, ARF, Chemo, Hep., AIDS, mental health diagnosis, sleep apnea, morb id obesity)? @ -none Was patient admitted / discharged? Hospital course, mention meds given and rou te, prescriptions, significant lab abnormalities, going to OR and other pertinent info. @ - Undiagnosed new problem with uncertain prognosis? @ -no Drug Therapy requiring intensive monitoring for toxicity (Heparin, Nitro, Insulin, Cardizem)? @ -no Were any procedures done? @ -no Diagnosis/symptom? @ - Acute, or Chronic, or Acute on Chronic? @ -Acute Uncomplicated (without systemic symptoms) or Complicated (systemic symptoms)? @ -Complicated Side effects of treatment? @ -no Exacerbation, Progression, or Severe Exacerbation? @ -exacerbation Poses a threat to life or bodily function? How? (Chest pain, [place], [place], pneumonia, PE, COPD, DKA, ARF, appy, cholecystitis, CVA, Diverticulitis, Homicidal, Suicidal, threat to staff... and all critical care pts) @ -yes (Trent Suárez) Reevaluation #4: Differential Weakness: Hypoglycemia, shock, sepsis, hyponatremia, anemia, infection, [place], ETOH, adverse medicine reaction, overdose, stroke, this is not meant to be an all-inclusive list. Differential Mental Health Depression, anxiety, bipolar, psychosis, schizophrenia, borderline personality, situational depression, adjustment disorder, behavioral disorder, brain tumor, malingering, substance abuse, encephalopathy, medication reaction, dementia, hypothyroidism, degenerative neurologic disorder, lupus.... This is not meant to be all-inclusive list (Trent Suárez) EKG Findings - EKG Comments: EKG Findings:: EKG is sinus 81 [place] 141 QRS 98 QTc 388 - EKG Results: EKG: interpreted by ERMD <Trent Suárez - Last Filed: 11/19/24 20:21> Medical Decision Making - Lab Data Result diagrams: 11/19/24 18:00 11/19/24 18:00 <Trent Suárez - Last Filed: 11/19/24 20:21> - Lab Data Result diagrams: 11/19/24 18:00 11/19/24 18:00 <Khoa Martinez - Last Filed: 11/19/24 21:17> - Lab Data Lab Results 11/19/24 11/19/24 11/19/24 Range/Units 18:00 18:00 18:00 WBC 10.1 (3.8-10.6) k/uL RBC 5.61 (4.30-5.90) m/uL Hgb 16.0 (13.0-17.5) gm/dL Hct 49.1 (39.0-53.0) % MCV 87.5 (80.0-100.0) fL MCH 28.6 (25.0-35.0) pg MCHC 32.7 (31.0-37.0) g/dL RDW 13.6 (11.5-15.5) % Plt Count 287 (150-450) k/uL MPV 6.8 Neutrophils % 69 % Lymphocytes % 20 % Monocytes % 7 % Eosinophils % 1 % Basophils % 1 % Neutrophils # 7.0 (1.3-7.7) k/uL Lymphocytes # 2.0 (1.0-4.8) k/uL Monocytes # 0.7 (0-1.0) k/uL Eosinophils # 0.1 (0-0.7) k/uL Basophils # 0.1 (0-0.2) k/uL PT (10.0-12.5) sec INR (<1.2) APTT (22.0-30.0) sec Sodium 136 L (137-145) mmol/L Potassium 4.3 (3.5-5.1) mmol/L Chloride 98 (98-107) mmol/L Carbon Dioxide 28 (22-30) mmol/L Anion Gap 10 mmol/L BUN 19 (9-20) mg/dL Creatinine 0.76 (0.66-1.25) mg/dL Est GFR (CKD-EPI)AfAm >90 (>60 ml/min/1.73 sqM) Est GFR (CKD-EPI)NonAf >90 (>60 ml/min/1.73 sqM) Glucose 93 (74-99) mg/dL Plasma Lactic Acid Lonny 1.3 (0.7-2.0) mmol/L Calcium 9.9 (8.4-10.2) mg/dL Phosphorus 3.4 (2.5-4.5) mg/dL Magnesium 2.2 (1.6-2.3) mg/dL Total Bilirubin 0.7 (0.2-1.3) mg/dL AST 72 H (17-59) U/L ALT 140 H (4-49) U/L Alkaline Phosphatase 74 (38-126) U/L Ammonia <9 (<30) umol/L Troponin I (0.000-0.034) ng/mL Total Protein 8.0 (6.3-8.2) g/dL Albumin 4.7 (3.5-5.0) g/dL Lipase 317 H (23-300) U/L Influenza Type A (PCR) (Not Detectd) Influenza Type B (PCR) (Not Detectd) RSV (PCR) (Not Detectd) SARS-CoV-2 (PCR) (Not Detectd) 11/19/24 11/19/24 11/19/24 Range/Units 18:00 18:00 18:00 WBC (3.8-10.6) k/uL RBC (4.30-5.90) m/uL Hgb (13.0-17.5) gm/dL Hct (39.0-53.0) % MCV (80.0-100.0) fL MCH (25.0-35.0) pg MCHC (31.0-37.0) g/dL RDW (11.5-15.5) % Plt Count (150-450) k/uL MPV Neutrophils % % Lymphocytes % % Monocytes % % Eosinophils % % Basophils % % Neutrophils # (1.3-7.7) k/uL Lymphocytes # (1.0-4.8) k/uL Monocytes # (0-1.0) k/uL Eosinophils # (0-0.7) k/uL Basophils # (0-0.2) k/uL PT 11.8 (10.0-12.5) sec INR 1.1 (<1.2) APTT 27.5 (22.0-30.0) sec Sodium (137-145) mmol/L Potassium (3.5-5.1) mmol/L Chloride (98-107) mmol/L Carbon Dioxide (22-30) mmol/L Anion Gap mmol/L BUN (9-20) mg/dL Creatinine (0.66-1.25) mg/dL Est GFR (CKD-EPI)AfAm (>60 ml/min/1.73 sqM) Est GFR (CKD-EPI)NonAf (>60 ml/min/1.73 sqM) Glucose (74-99) mg/dL Plasma Lactic Acid Lonny (0.7-2.0) mmol/L Calcium (8.4-10.2) mg/dL Phosphorus (2.5-4.5) mg/dL Magnesium (1.6-2.3) mg/dL Total Bilirubin (0.2-1.3) mg/dL AST (17-59) U/L ALT (4-49) U/L Alkaline Phosphatase (38-126) U/L Ammonia (<30) umol/L Troponin I <0.012 (0.000-0.034) ng/mL Total Protein (6.3-8.2) g/dL Albumin (3.5-5.0) g/dL Lipase (23-300) U/L Influenza Type A (PCR) Not Detected (Not Detectd) Influenza Type B (PCR) Not Detected (Not Detectd) RSV (PCR) Not Detected (Not Detectd) SARS-CoV-2 (PCR) Not Detected (Not Detectd) Disposition <Trent Suárez - Last Filed: 11/19/24 20:21> Is patient prescribed a controlled substance at d/c from ED?: No <Khoa Martinez - Last Filed: 11/19/24 21:17> Clinical Impression: Acute anxiety Disposition: HOME SELF-CARE Condition: Good Instructions (If sedation given, give patient instructions): Dizziness (ED) Referrals: None,Stated [Primary Care Provider] - 1-2 days
[2024-11-19] MEDS: SODIUM CHLORIDE 0.9% 1,000 ML IV ONE (18:04)
[2024-11-19 18:16] LABS: Basophils # (A) 0.1 k/uL (0-0.2); Basophils % (A) 1 %; Eosinophils # (A) 0.1 k/uL (0-0.7); Eosinophils % (A) 1 %; HCT 49.1 % (39.0-53.0); Lymphocytes % (A) 20 %; MCH 28.6 pg (25.0-35.0); MCHC 32.7 g/dL (31.0-37.0); MCV 87.5 fL (80.0-100.0); Mean Platelet Volume 6.8; Monocytes # (A) 0.7 k/uL (0-1.0); Monocytes % (A) 7 %; Neutrophils % (A) 69 %; Platelet Count 287 k/uL (150-450); RBC 5.61 m/uL (4.30-5.90); RDW 13.6 % (11.5-15.5); WBC 10.1 k/uL (3.8-10.6)
[2024-11-19 18:21] LABS: Lactic Acid, Venous 1.3 mmol/L (0.7-2.0)
[2024-11-19 18:24] LABS: ALT 140 U/L (4-49); AST 72 U/L (17-59); African American GFR (CKD) >90 (>60 ml/min/1.73 sqM); Albumin 4.7 g/dL (3.5-5.0); Alkaline Phosphatase 74 U/L (38-126); Anion Gap 10 mmol/L; Blood Urea Nitrogen 19 mg/dL (9-20); Calcium 9.9 mg/dL (8.4-10.2); Carbon Dioxide 28 mmol/L (22-30); Chloride 98 mmol/L (98-107); Glucose 93 mg/dL (74-99); Lipase 317 U/L (23-300); Magnesium 2.2 mg/dL (1.6-2.3); Non-African American GFR(CKD) >90 (>60 ml/min/1.73 sqM); Phosphorus 3.4 mg/dL (2.5-4.5); Potassium 4.3 mmol/L (3.5-5.1); Sodium 136 mmol/L (137-145); Total Bilirubin 0.7 mg/dL (0.2-1.3)
[2024-11-19 18:31] LABS: INR 1.1 (<1.2); Partial Thromboplastin Time 27.5 sec (22.0-30.0); Prothrombin Time 11.8 sec (10.0-12.5)
[2024-11-19 18:46] LABS: Influenza A Not Detected (Not Detectd); Influenza B Not Detected (Not Detectd); RSV Not Detected (Not Detectd)
[2024-11-19 21:27] VITALS: BP 130/86; PULSE 82; RESP 17
== END 2024-11-19 21:27 | disposition home or self-care (01) ==
LOC: EC 16:09
DX: F41.9 Anxiety disorder, unspecified (principal); F17.290 Nicotine dependence, other tobacco product, uncomplicated; Z88.8 Allergy status to other drugs, medicaments and biological substances; Z91.09 Other allergy status, other than to drugs and biological substances; Z11.52 Encounter for screening for COVID-19
CPT/HCPCS: 80053; 82075; 82140; 83605; 83690; 83735; 84100; 84484; 85025; 85610; 85730; 87636; 93005; 96360; 99285

== ENCOUNTER 2024-11-21 17:20 | Emergency (ER) | payer MEDICARE, OTHER ==
--- NOTE | 2024-11-21 18:36 | ED ---
Psych HPI - General Chief Complaint: Psychiatric Symptoms Stated Complaint: Mental health evaluation, vomiting Time Seen by Provider: 11/21/24 18:34 Source: patient, EMS, RN notes reviewed Mode of arrival: EMS - History of Present Illness Initial Comments: 48-year-old male with history of IV drug use presenting to the ER for generalized weakness. States he has been feeling progressively more weak over the past few days and feels like something is wrong. Also reports an episode of vomiting blood yesterday, however reports he has been vomiting blood for 25 years. Has not had an episode of vomiting blood since yesterday. Denies chest pain, shortness of breath, abdominal pain, blood in stool. He was seen in the ER 2 days ago for similar symptoms and negative workup was obtained. Patient is also reporting feelings of hopelessness and sadness however denies suicidal or homicidal ideation. - Related Data Home Medications Medication Instructions Recorded Confirmed Sertraline [Zoloft] 50 mg PO HS 11/19/24 11/19/24 fluPHENAZine decanoate [Prolixin 50 mg IM Q7D 11/19/24 11/19/24 Decanoate] Allergies Allergy/AdvReac Type Severity Reaction Status Date / Time cat dander Allergy Itching Verified 11/21/24 18:10 oxcarbazepine AdvReac seizures Verified 11/21/24 18:10 [From Trileptal] paliperidone [From Invega] AdvReac delusional Verified 11/21/24 18:10 risperidone [From Risperdal] AdvReac seizures Verified 11/21/24 18:10 Review of Systems ROS Statement: Those systems with pertinent positive or pertinent negative responses have been documented in the HPI. ROS Other: All systems not noted in ROS Statement are negative. Past Medical History Past Medical History: GERD/Reflux, Musculoskeletal Disorder, Seizure Disorder Additional Past Medical History / Comment(s): scoliosis, herpes, hiatal hernia, migraines, Hepatitis C History of Any Multi-Drug Resistant Organisms: None Reported Past Surgical History: No Surgical Hx Reported Additional Past Surgical History / Comment(s): EGD Past Anesthesia/Blood Transfusion Reactions: No Reported Reaction Past Psychological History: Anxiety, Bipolar, Depression, Schizoaffective Disorder Smoking Status: Current every day smoker, Vaper Past Alcohol Use History: Rare Past Drug Use History: Cocaine, Heroin, IV Drug Use, Marijuana, Methamphetamine, Opiates, Prescription Drug Abuse - Past Family History Mother History Unknown: Yes Family Medical History: No Reported History Additional Family Medical History / Comment(s): from suicide Father History Unknown: Yes Family Medical History: No Reported History Additional Family Medical History / Comment(s): Reports that he is currently in the stages of dying- but wont clarify further. Inititally the patient stated his father was . General Exam Limitations: no limitations General appearance: alert, in no apparent distress Head exam: Present: atraumatic, normocephalic, normal inspection Eye exam: Present: normal appearance, PERRL, EOMI. Absent: scleral icterus, conjunctival injection, periorbital swelling ENT exam: Present: normal exam, mucous membranes moist Respiratory exam: Present: normal lung sounds bilaterally. Absent: respiratory distress, wheezes, rales, rhonchi, stridor Cardiovascular Exam: Present: regular rate, normal rhythm, normal heart sounds. Absent: systolic murmur, diastolic murmur, rubs, gallop, clicks GI/Abdominal exam: Present: soft, normal bowel sounds. Absent: distended, tenderness, guarding, rebound, rigid Neurological exam: Present: alert, oriented X3 Psychiatric exam: Present: normal affect, normal mood, depressed. Absent: homicidal ideation, suicidal ideation Skin exam: Present: warm, dry, intact, normal color. Absent: rash Course Vital Signs 11/21/24 17:26 Temperature 98.0 F Pulse Rate 98 Respiratory 16 Rate Blood Pressure 92/59 O2 Sat by Pulse 96 Oximetry Medical Decision Making - Medical Decision Making Was pt. sent in by a medical professional or institution (Dr. PA, RAILROAD FIRER, urgent care, hospital, or fdc...) When possible be specific @ -No Did you speak to anyone other than the patient for history (EMS, parent, family, police, friend...)? What history was obtained from this source @ -No Did you review nursing and triage notes (agree or disagree)? Why? @ -I reviewed and agree with nursing and triage notes Were old charts reviewed (outside hosp., previous admission, EMS record, old EKG, old radiological studies, urgent care reports/EKG's, fdc records)? Report findings @ -Previous ER chart reviewed including lab work Differential Diagnosis (chest pain, altered mental status, abdominal pain women, abdominal pain men, vaginal bleeding, weakness, fever, dyspnea, syncope, headache, dizziness, GI bleed, back pain, seizure, CVA, palpatations, mental health, musculoskeletal)? @ -Differential Mental Health Depression, anxiety, bipolar, psychosis, schizophrenia, borderline personality, situational depression, adjustment disorder, behavioral disorder, brain tumor, malingering, substance abuse, encephalopathy, medication reaction, dementia, hypothyroidism, degenerative neurologic disorder, lupus.... This is not meant to be all-inclusive list Differential Weakness: Hypoglycemia, shock, sepsis, hyponatremia, anemia, infection, [place], ETOH, adverse medicine reaction, overdose, stroke, this is not meant to be an all-inclusive list. EKG interpreted by me (3pts min.). @ -As above X-rays interpreted by me (1pt min.). @ -Chest x-ray reveals no acute process CT interpreted by me (1pt min.). @ -None done U/S interpreted by me (1pt. min.). @ -None done What testing was considered but not performed or refused? (CT, X-rays, U/S, labs)? Why? @ -None What meds were considered but not given or refused? Why? @ -None Did you discuss the management of the patient with other professionals (professionals i.e. , PA, RAILROAD FIRER, lab, RT, psych nurse, psychosocial rehabilitation counselor, family practice physician, teacher, horticultural technical officer, case coordinator)? Give summary @ -I spoke with EPS who recommends discharge with safety plan Was smoking cessation discussed for >3mins.? @ -No Was critical care preformed (if so, how long)? @ -No Were there social determinants of health that impacted care today? How? (H omelessness, low income, unemployed, alcoholism, drug addiction, transportation, low edu. Level, literacy, decrease access to med. care, long-term, rehab)? @ -No Was there de-escalation of care discussed even if they declined (Discuss DNR or withdrawal of care, Hospice)? DNR status @ -No What co-morbidities impacted this encounter? (DM, HTN, Smoking, COPD, CAD, Cancer, CVA, ARF, Chemo, Hep., AIDS, mental health diagnosis, sleep apnea, morbid obesity)? @ -None Was patient admitted / discharged? Hospital course, mention meds given and route, prescriptions, significant lab abnormalities, going to OR and other pertinent info. @ -Discharge. 48-year-old male presenting for generalized weakness. Also reports some feelings of hopelessness and sadness. Vital signs within acceptable limits. Lab work at baseline compared to previous. EKG reveals normal sinus rhythm with right bundle branch block. Chest x-ray reveals no acute process. Patient has been cleared to be seen by EPS. I spoke with EPS who recommends discharge with safety plan. Patient has divergent plan and will be picked up by [facility]. Case was discussed with my ED attending Dr. Herndon. Undiagnosed new problem with uncertain prognosis? @ -No Drug Therapy requiring intensive monitoring for toxicity (Heparin, Nitro, Insulin, Cardizem)? @ -No Were any procedures done? @ -No Diagnosis/symptom? @ -Weakness, hopelessness Acute, or Chronic, or Acute on Chronic? @ -Acute Uncomplicated (without systemic symptoms) or Complicated (systemic symptoms)? @ -Complicated Side effects of treatment? @ -No Exacerbation, Progression, or Severe Exacerbation? @ -No Poses a threat to life or bodily function? How? (Chest pain, USA, [place], pneumonia, PE, COPD, DKA, ARF, appy, cholecystitis, CVA, Diverticulitis, Homicidal, Suicidal, threat to staff... and all critical care pts) @ -Unlikely at this time - Lab Data Result diagrams: 11/21/24 18:45 11/21/24 18:45 Lab Results 11/21/24 11/21/24 11/21/24 Range/Units 18:45 18:45 18:45 WBC 6.8 (3.8-10.6) k/uL RBC 5.23 (4.30-5.90) m/uL Hgb 14.9 (13.0-17.5) gm/dL Hct 45.6 (39.0-53.0) % MCV 87.1 (80.0-100.0) fL MCH 28.6 (25.0-35.0) pg MCHC 32.8 (31.0-37.0) g/dL RDW 13.5 (11.5-15.5) % Plt Count 256 (150-450) k/uL MPV 6.7 Neutrophils % 66 % Lymphocytes % 23 % Monocytes % 7 % Eosinophils % 2 % Basophils % 1 % Neutrophils # 4.5 (1.3-7.7) k/uL Lymphocytes # 1.5 (1.0-4.8) k/uL Monocytes # 0.5 (0-1.0) k/uL Eosinophils # 0.1 (0-0.7) k/uL Basophils # 0.0 (0-0.2) k/uL PT 11.9 (10.0-12.5) sec INR 1.1 (<1.2) APTT 26.9 (22.0-30.0) sec Sodium 136 L (137-145) mmol/L Potassium 3.8 (3.5-5.1) mmol/L Chloride 101 (98-107) mmol/L Carbon Dioxide 28 (22-30) mmol/L Anion Gap 7 mmol/L BUN 9 (9-20) mg/dL Creatinine 0.63 L (0.66-1.25) mg/dL Est GFR (CKD-EPI)AfAm >90 (>60 ml/min/1.73 sqM) Est GFR (CKD-EPI)NonAf >90 (>60 ml/min/1.73 sqM) Glucose 102 H (74-99) mg/dL Calcium 9.4 (8.4-10.2) mg/dL Total Bilirubin 0.7 (0.2-1.3) mg/dL AST 42 (17-59) U/L ALT 95 H (4-49) U/L Alkaline Phosphatase 72 (38-126) U/L Troponin I (0.000-0.034) ng/mL Total Protein 7.3 (6.3-8.2) g/dL Albumin 4.3 (3.5-5.0) g/dL Lipase 308 H (23-300) U/L Urine Opiates Screen (NotDetected) Ur Oxycodone Screen (NotDetected) Urine Methadone Screen (NotDetected) Ur Barbiturates Screen (NotDetected) U Tricyclic Antidepress (NotDetected) Ur Phencyclidine Scrn (NotDetected) Ur Amphetamines Screen (NotDetected) U Methamphetamines Scrn (NotDetected) U Benzodiazepines Scrn (NotDetected) Urine Cocaine Screen (NotDetected) U Marijuana (THC) Screen (NotDetected) 11/21/24 11/21/24 Range/Units 18:45 20:30 WBC (3.8-10.6) k/uL RBC (4.30-5.90) m/uL Hgb (13.0-17.5) gm/dL Hct (39.0-53.0) % MCV (80.0-100.0) fL MCH (25.0-35.0) pg MCHC (31.0-37.0) g/dL RDW (11.5-15.5) % Plt Count (150-450) k/uL MPV Neutrophils % % Lymphocytes % % Monocytes % % Eosinophils % % Basophils % % Neutrophils # (1.3-7.7) k/uL Lymphocytes # (1.0-4.8) k/uL Monocytes # (0-1.0) k/uL Eosinophils # (0-0.7) k/uL Basophils # (0-0.2) k/uL PT (10.0-12.5) sec INR (<1.2) APTT (22.0-30.0) sec Sodium (137-145) mmol/L Potassium (3.5-5.1) mmol/L Chloride (98-107) mmol/L Carbon Dioxide (22-30) mmol/L Anion Gap mmol/L BUN (9-20) mg/dL Creatinine (0.66-1.25) mg/dL Est GFR (CKD-EPI)AfAm (>60 ml/min/1.73 sqM) Est GFR (CKD-EPI)NonAf (>60 ml/min/1.73 sqM) Glucose (74-99) mg/dL Calcium (8.4-10.2) mg/dL Total Bilirubin (0.2-1.3) mg/dL AST (17-59) U/L ALT (4-49) U/L Alkaline Phosphatase (38-126) U/L Troponin I <0.012 (0.000-0.034) ng/mL Total Protein (6.3-8.2) g/dL Albumin (3.5-5.0) g/dL Lipase (23-300) U/L Urine Opiates Screen Not Detected (NotDetected) Ur Oxycodone Screen Not Detected (NotDetected) Urine Methadone Screen Not Detected (NotDetected) Ur Barbiturates Screen Not Detected (NotDetected) U Tricyclic Antidepress Not Detected (NotDetected) Ur Phencyclidine Scrn Not Detected (NotDetected) Ur Amphetamines Screen Not Detected (NotDetected) U Methamphetamines Scrn Not Detected (NotDetected) U Benzodiazepines Scrn Not Detected (NotDetected) Urine Cocaine Screen Not Detected (NotDetected) U Marijuana (THC) Screen Detected H (NotDetected) - EKG Data -: EKG Interpreted by Me EKG Comments: EKG reveals right bundle branch block. Ventricular rate 88 bpm, DE interval 155, QRS duration 93, QT/QTc 359/404 Disposition Clinical Impression: Weakness Disposition: HOME SELF-CARE Condition: Stable Additional Instructions: Please return to the Emergency Department if symptoms worsen or any other concerns. Is patient prescribed a controlled substance at d/c from ED?: No Referrals: Duke Archibald MD [Primary Care Provider] - 1-2 days Time of Disposition: 23:03
[2024-11-21] MEDS: SODIUM CHLORIDE 0.9% 1,000 ML IV STA (18:47)
[2024-11-21 18:57] LABS: Basophils % (A) 1 %; Eosinophils # (A) 0.1 k/uL (0-0.7); Eosinophils % (A) 2 %; HCT 45.6 % (39.0-53.0); HGB 14.9 gm/dL (13.0-17.5); Lymphocytes # (A) 1.5 k/uL (1.0-4.8); Lymphocytes % (A) 23 %; MCH 28.6 pg (25.0-35.0); MCHC 32.8 g/dL (31.0-37.0); MCV 87.1 fL (80.0-100.0); Mean Platelet Volume 6.7; Monocytes # (A) 0.5 k/uL (0-1.0); Monocytes % (A) 7 %; Neutrophils # (A) 4.5 k/uL (1.3-7.7); Neutrophils % (A) 66 %; Platelet Count 256 k/uL (150-450); RBC 5.23 m/uL (4.30-5.90); RDW 13.5 % (11.5-15.5); WBC 6.8 k/uL (3.8-10.6)
[2024-11-21 18:58] LABS: ALT 95 U/L (4-49); AST 42 U/L (17-59); African American GFR (CKD) >90 (>60 ml/min/1.73 sqM); Albumin 4.3 g/dL (3.5-5.0); Alkaline Phosphatase 72 U/L (38-126); Anion Gap 7 mmol/L; Blood Urea Nitrogen 9 mg/dL (9-20); Calcium 9.4 mg/dL (8.4-10.2); Carbon Dioxide 28 mmol/L (22-30); Chloride 101 mmol/L (98-107); Glucose 102 mg/dL (74-99); Lipase 308 U/L (23-300); Non-African American GFR(CKD) >90 (>60 ml/min/1.73 sqM); Potassium 3.8 mmol/L (3.5-5.1); Sodium 136 mmol/L (137-145); Total Bilirubin 0.7 mg/dL (0.2-1.3); Total Protein 7.3 g/dL (6.3-8.2)
[2024-11-21 19:02] LABS: INR 1.1 (<1.2); Partial Thromboplastin Time 26.9 sec (22.0-30.0); Prothrombin Time 11.9 sec (10.0-12.5)
--- NOTE | 2024-11-21 19:02 | XR ---
EXAMINATION TYPE: XR chest 2V DATE OF EXAM: 11/21/2024 6:56 PM COMPARISON: Chest radiographs from 05/18/2024 CLINICAL INDICATION: Male, 48 years old with history of hematemesis; TECHNIQUE: XR chest 2V Frontal and lateral views of the chest. FINDINGS: Lungs/Pleura: There is no evidence of pleural effusion, focal consolidation, or pneumothorax. Pulmonary vascularity: Unremarkable. Heart/mediastinum: Cardiomediastinal silhouette is unremarkable. Musculoskeletal: No acute osseous pathology. IMPRESSION: No acute cardiopulmonary disease/process. [facility], , 11/21/2024 6:59 PM
[2024-11-21 21:10] LABS: Amphetamine Screen,Urine Not Detected (NotDetected); Barbiturate Screen,Urine Not Detected (NotDetected); Benzodiazepines Screen,Urine Not Detected (NotDetected); Cocaine Screen,Urine Not Detected (NotDetected); Methadone Screen, Urine Not Detected (NotDetected); Opiate Screen,Urine Not Detected (NotDetected); Oxycodone Screen, Urine Not Detected (NotDetected); Phencyclidine Screen,Urine Not Detected (NotDetected); Tricyclic Antidepressant,Urine Not Detected (NotDetected); Urn Cannabinoid Scrn Detected (NotDetected)
[2024-11-22 09:47] VITALS: BP 128/85
[2024-11-22 11:31] VITALS: PULSE 91; RESP 16; TEMP 98.9
== END 2024-11-22 11:43 | disposition home or self-care (01) ==
LOC: EC 17:20
DX: R53.1 Weakness (principal); I45.10 Unspecified right bundle-branch block; F17.290 Nicotine dependence, other tobacco product, uncomplicated; Z88.8 Allergy status to other drugs, medicaments and biological substances
CPT/HCPCS: 36415; 71046; 80053; 80306; 82075; 83690; 84484; 85025; 85610; 85730; 93005; 96360; 99285

== ENCOUNTER 2024-12-17 02:52 | Emergency (ER) | payer MEDICARE, MEDICAID ==
[2024-12-17 02:58] VITALS: RESP 18
--- NOTE | 2024-12-17 05:00 | ED ---
Psych HPI - General Chief Complaint: Psychiatric Symptoms Stated Complaint: mental health Time Seen by Provider: 12/17/24 03:00 Source: patient Mode of arrival: ambulatory - History of Present Illness Initial Comments: 49 year-old male with past medical history of schizophrenia, polysubstance abuse who presents to the emergency department reporting depression with some suicidal ideations. Patient does not elaborate much on his symptoms other than he has been feeling more depressed than normal and possibly feels suicidal. Denies any attempt. He denies any drug or alcohol abuse. Reports that he has been out of his medications due to the fact that he does not have an ID to obtain them. He denies having a primary care doctor. No homicidal ideations. No sun ucinations. No other alleviating, precipitating or modifying factors - Related Data Home Medications Medication Instructions Recorded Confirmed Sertraline [Zoloft] 50 mg PO HS 11/19/24 11/19/24 fluPHENAZine decanoate [Prolixin 50 mg IM Q7D 11/19/24 11/19/24 Decanoate] Allergies Allergy/AdvReac Type Severity Reaction Status Date / Time cat dander Allergy Itching Verified 12/17/24 02:55 oxcarbazepine AdvReac seizures Verified 12/17/24 02:55 [From Trileptal] paliperidone [From Invega] AdvReac delusional Verified 12/17/24 02:55 risperidone [From Risperdal] AdvReac seizures Verified 12/17/24 02:55 Review of Systems ROS Statement: Those systems with pertinent positive or pertinent negative responses have been documented in the HPI. ROS Other: All systems not noted in ROS Statement are negative. Past Medical History Past Medical History: GERD/Reflux, Musculoskeletal Disorder, Seizure Disorder Additional Past Medical History / Comment(s): scoliosis, herpes, hiatal hernia, migraines, Hepatitis C History of Any Multi-Drug Resistant Organisms: None Reported Past Surgical History: No Surgical Hx Reported Additional Past Surgical History / Comment(s): EGD Past Anesthesia/Blood Transfusion Reactions: No Reported Reaction Past Psychological History: Anxiety, Bipolar, Depression, Schizoaffective Disorder Smoking Status: Current every day smoker, Vaper Past Alcohol Use History: Rare Past Drug Use History: Cocaine, Heroin, IV Drug Use, Marijuana, Methamphetamine, Opiates, Prescription Drug Abuse - Past Family History Mother History Unknown: Yes Family Medical History: No Reported History Additional Family Medical History / Comment(s): from suicide Father History Unknown: Yes Family Medical History: No Reported History Additional Family Medical History / Comment(s): Reports that he is currently in the stages of dying- but wont clarify further. Inititally the patient stated his father was . General Exam Limitations: no limitations General appearance: alert, in no apparent distress Head exam: Present: atraumatic, normocephalic, normal inspection Eye exam: Present: normal appearance, PERRL, EOMI. Absent: scleral icterus, conjunctival injection, periorbital swelling ENT exam: Present: normal exam, mucous membranes moist Neck exam: Present: normal inspection. Absent: tenderness, meningismus, lymphadenopathy Respiratory exam: Present: normal lung sounds bilaterally. Absent: respiratory distress, wheezes, rales, rhonchi, stridor Cardiovascular Exam: Present: regular rate, normal rhythm, normal heart sounds. Absent: systolic murmur, diastolic murmur, rubs, gallop, clicks GI/Abdominal exam: Present: soft, normal bowel sounds. Absent: distended, tenderness, guarding, rebound, rigid Extremities exam: Present: normal inspection, full ROM, normal capillary refill. Absent: tenderness, pedal edema, joint swelling, calf tenderness Back exam: Present: normal inspection Neurological exam: Present: alert, oriented X3, CN II-XII intact Psychiatric exam: Present: depressed Skin exam: Present: warm, dry, intact, normal color. Absent: rash Course Vital Signs 12/17/24 02:54 Temperature 97.9 F Pulse Rate 109 H Respiratory 18 Rate Blood Pressure 136/91 O2 Sat by Pulse 96 Oximetry Medical Decision Making - Medical Decision Making Was pt. sent in by a medical professional or institution (, PA, ORGANIC GARDENING TEACHER, urgent care, hospital, or [place] health [facility] facility...) When possible be specific @ -No Did you speak to anyone other than the patient for history (EMS, parent, family, police, friend...)? What history was obtained from this source @ -No Did you review nursing and triage notes (agree or disagree)? Why? @ -I reviewed and agree with nursing and triage notes Were old charts reviewed (outside hosp., previous admission, EMS record, old EKG, old radiological studies, urgent care reports/EKG's, [place] health [facility] facility records)? Report findings @ -Reviewed discharge summary from October 2024. Patient was admitted to [facility] [address]. he was diagnosed with schizophrenia and polysubstance abuse Differential Diagnosis (chest pain, altered mental status, abdominal pain women, abdominal pain men, vaginal bleeding, weakness, fever, dyspnea, syncope, headache, dizziness, GI bleed, back pain, seizure, CVA, palpatations, mental health, musculoskeletal)? @ -Differential Mental Health Depression, anxiety, bipolar, psychosis, schizophrenia, borderline personality, situational depression, adjustment disorder, behavioral disorder, brain tumor, malingering, substance abuse, encephalopathy, medication reaction, dementia, hypothyroidism, degenerative neurologic disorder, lupus.... This is not meant to be all-inclusive list EKG interpreted by me (3pts min.). @ -Not done X-rays interpreted by me (1pt min.). @ -None done CT interpreted by me (1pt min.). @ -None done U/S interpreted by me (1pt. min.). @ -None done What testing was considered but not performed or refused? (CT, X-rays, U/S, labs)? Why? @ -None What meds were considered but not given or refused? Why? @ -None Did you discuss the management of the patient with other professionals (professionals i.e. , PA, ORGANIC GARDENING TEACHER, lab, RT, psych nurse, medical social consultant, enologist, teacher, unemployment insurance hearing officer, case therapist)? Give summary @ -Spoke with Lorenzo from EPS who does evaluate the patient and discusses the patient's care with the psychiatrist. Patient is stable for discharge at this time. He will be picked up between 830 and 9 AM by [facility] who will take him for intake Was smoking cessation discussed for >3mins.? @ -No Was critical care preformed (if so, how long)? @ -No Were there social determinants of health that impacted care today? How? (Homelessness, low income, unemployed, alcoholism, drug addiction, transportation, low edu. Level, literacy, decrease access to med. care, snf, rehab)? @ -Homelessness Was there de-escalation of care discussed even if they declined (Discuss DNR or withdrawal of care, Hospice)? DNR status @ -No What co-morbidities impacted this encounter? (DM, HTN, Smoking, COPD, CAD, Cancer, CVA, ARF, Chemo, Hep., AIDS, mental health diagnosis, sleep apnea, morbid obesity)? @ -Schizophrenia Was patient admitted / discharged? Hospital course, mention meds given and route, prescriptions, significant lab abnormalities, going to OR and other pertinent info. @ -Upon arrival patient seen and evaluated in bed 14. Thorough history and physical exam was performed. Patient is sober. EPS is made aware that the patient is ready for evaluation. They do evaluate the patient. They do not fee l that the patient meets inpatient criteria. They do arrange for CM to pick the patient up in the morning and take him over to their facilities for intake so they can provide him with better resources. Patient was agreeable to this. He will be discharged in stable condition with instruction to return for any new or worsening symptoms Undiagnosed new problem with uncertain prognosis? @ -No Drug Therapy requiring intensive monitoring for toxicity (Heparin, Nitro, Insulin, Cardizem)? @ -No Were any procedures done? @ -No Diagnosis/symptom? @ -Acute exacerbation of chronic depression, history of schizophrenia Acute, or Chronic, or Acute on Chronic? @ -Acute on chronic Uncomplicated (without systemic symptoms) or Complicated (systemic symptoms)? @ -Complicated Side effects of treatment? @ -No Exacerbation, Progression, or Severe Exacerbation? @ -No Poses a threat to life or bodily function? How? (Chest pain, [place], [place], pneumonia, PE, COPD, DKA, ARF, appy, cholecystitis, CVA, Diverticulitis, Homicidal, Suicidal, threat to staff... and all critical care pts) @ -No Disposition Clinical Impression: Depression Disposition: HOME SELF-CARE Condition: Stable Instructions (If sedation given, give patient instructions): Depression (ED) Additional Instructions: [facility] will be picking you up and taking you to their facility for further treatment Is patient prescribed a controlled substance at d/c from ED?: No Referrals: None,Stated [Primary Care Provider] - 1-2 days Time of Disposition: 06:12
[2024-12-17 09:10] VITALS: BP 125/86; PULSE 90; TEMP 97.8
== END 2024-12-17 09:09 | disposition home or self-care (01) ==
LOC: EC 02:52
DX: F32.A Depression, unspecified (principal); F20.9 Schizophrenia, unspecified; F17.290 Nicotine dependence, other tobacco product, uncomplicated; Z59.00 Homelessness unspecified; Z88.8 Allergy status to other drugs, medicaments and biological substances; Z91.09 Other allergy status, other than to drugs and biological substances
CPT/HCPCS: 82075; 99285

== ENCOUNTER 2024-12-18 16:07 | Emergency (ER) | payer MEDICARE, MEDICAID ==
[2024-12-18 16:14] VITALS: RESP 18; TEMP 97.8
--- NOTE | 2024-12-18 16:40 | ED ---
Psych HPI - General Chief Complaint: Psychiatric Symptoms Stated Complaint: Mental Health Time Seen by Provider: 12/18/24 16:15 Source: patient Mode of arrival: ambulatory - History of Present Illness Initial Comments: This patient is a 49-year-old man with history of schizoaffective disorder, here at the hospital with complaint that his symptoms have been flaring up. The jem ent states that he is wanting to talk to snakes and hold rituals with them. MD Complaint: other -: unknown Associated Psychiatric Symptoms: racing thoughts, delusions Quality: getting worse Improves With: none Worsens With: none Associated Symptoms: insomnia - Related Data Home Medications Medication Instructions Recorded Confirmed Sertraline [Zoloft] 50 mg PO HS 11/19/24 12/25/24 Aripiprazole Lauroxil [Aristada] 882 mg IM Q28D 12/25/24 12/25/24 cloZAPine [Clozaril] 50 mg PO HS 12/25/24 12/25/24 Previous Rx's Medication Instructions Recorded Famotidine [Pepcid] 20 mg PO BID #28 tablet 12/21/24 Pantoprazole [Protonix] 40 mg PO DAILY #14 tab 12/21/24 Allergies Allergy/AdvReac Type Severity Reaction Status Date / Time cat dander Allergy Itching Verified 12/25/24 20:16 oxcarbazepine AdvReac seizures Verified 12/25/24 20:16 [From Trileptal] paliperidone [From Invega] AdvReac delusional Verified 12/25/24 20:16 risperidone [From Risperdal] AdvReac seizures Verified 12/25/24 20:16 Review of Systems ROS Statement: Those systems with pertinent positive or pertinent negative responses have been documented in the HPI. ROS Other: All systems not noted in ROS Statement are negative. Constitutional: Denies: fever, weakness Eyes: Denies: vision change Respiratory: Denies: cough, dyspnea Cardiovascular: Denies: chest pain, palpitations, edema Gastrointestinal: Denies: abdominal pain, nausea, vomiting Genitourinary: Denies: dysuria, hematuria Musculoskeletal: Denies: back pain Skin: Denies: rash Neurological: Denies: headache, weakness Psychiatric: Reports: anxiety, auditory hallucinations Past Medical History Past Medical History: GERD/Reflux, Musculoskeletal Disorder, Seizure Disorder Additional Past Medical History / Comment(s): scoliosis, herpes, hiatal hernia, migraines, Hepatitis C History of Any Multi-Drug Resistant Organisms: None Reported Past Surgical History: No Surgical Hx Reported Additional Past Surgical History / Comment(s): EGD Past Anesthesia/Blood Transfusion Reactions: No Reported Reaction Past Psychological History: Anxiety, Bipolar, Depression, Schizoaffective Disorder Smoking Status: Current every day smoker, Vaper Past Alcohol Use History: Rare Past Drug Use History: Cocaine, Heroin, IV Drug Use, Marijuana, Methamphetamine, Opiates, Prescription Drug Abuse - Past Family History Mother History Unknown: Yes Family Medical History: No Reported History Additional Family Medical History / Comment(s): from suicide Father History Unknown: Yes Family Medical History: No Reported History Additional Family Medical History / Comment(s): Reports that he is currently in the stages of dying- but wont clarify further. Inititally the patient stated his father was . General Exam Limitations: no limitations General appearance: alert, anxious Head exam: Present: atraumatic, normocephalic Eye exam: Present: normal appearance. Absent: scleral icterus, conjunctival injection ENT exam: Present: normal oropharynx Neck exam: Present: normal inspection Respiratory exam: Present: normal lung sounds bilaterally. Absent: respiratory distress, wheezes, rales, rhonchi, stridor, accessory muscle use Cardiovascular Exam: Present: regular rate, normal rhythm, normal heart sounds. Absent: systolic murmur, diastolic murmur, rubs, gallop GI/Abdominal exam: Present: soft. Absent: distended, tenderness, guarding, rebound, rigid, mass Extremities exam: Present: normal inspection, normal capillary refill. Absent: pedal edema Back exam: Present: normal inspection. Absent: CVA tenderness (R), CVA tenderness (L) Neurological exam: Present: alert Psychiatric exam: Present: anxious, manic. Absent: flat affect, homicidal ideation, suicidal ideation Skin exam: Present: warm, dry, intact, normal color. Absent: rash Course Vital Signs 12/18/24 12/18/24 16:08 18:24 Temperature 97.8 F Pulse Rate 98 84 Respiratory 18 18 Rate Blood Pressure 130/90 130/75 O2 Sat by Pulse 98 97 Oximetry Medical Decision Making - Medical Decision Making Was pt. sent in by a medical professional or institution (, PA, SKEIN BANDER, urgent care, hospital, or snf...) When possible be specific @ -[No] Did you speak to anyone other than the patient for history (EMS, parent, family, police, friend...)? What history was obtained from this source @ -[No] Did you review nursing and triage notes (agree or disagree)? Why? @ -[I reviewed and agree with nursing and triage notes] Were old charts reviewed (outside hosp., previous admission, EMS record, old EKG, old radiological studies, urgent care reports/EKG's, snf records)? Report findings @ -[No old charts were reviewed] Differential Diagnosis (chest pain, altered mental status, abdominal pain women, abdominal pain men, vaginal bleeding, weakness, fever, dyspnea, syncope, headache, dizziness, GI bleed, back pain, seizure, CVA, palpatations, mental health, musculoskeletal)? @ -[Differential Mental Health Depression, anxiety, bipolar, psychosis, schizophrenia, borderline personality, situational depression, adjustment disorder, behavioral disorder, brain tumor, malingering, substance abuse, encephalopathy, medication reaction, dementia, hypothyroidism, degenerative neurologic disorder, lupus.... This is not meant to be all-inclusive list EKG interpreted by me (3pts min.). @ -[As above] X-rays interpreted by me (1pt min.). @ -[None done] CT interpreted by me (1pt min.). @ -[None done] U/S interpreted by me (1pt. min.). @ -[None done] What testing was considered but not performed or refused? (CT, X-rays, U/S, labs)? Why? @ -[None] What meds were considered but not given or refused? Why? @ -[None] Did you discuss the management of the patient with other professionals (professionals i.e. , PA, SKEIN BANDER, lab, RT, psych nurse, social welfare research worker, physiatrist, teacher, data officer, director of casework)? Give summary @ -[Case discussed with EPS personnel, and after they staffed the case with psychiatrist patient stable to have further treatment as outpatient Was smoking cessation discussed for >3mins.? @ -[No] Was critical care preformed (if so, how long)? @ -[No] Were there social determinants of health that impacted care today? How? (Homelessness, low income, unemployed, alcoholism, drug addiction, transportation, low edu. Level, literacy, decrease access to med. care, [facility], rehab)? @ -[No] Was there de-escalation of care discussed even if they declined (Discuss DNR or withdrawal of care, Hospice)? DNR status @ -[No] What co-morbidities impacted this encounter? (DM, HTN, Smoking, COPD, CAD, Cancer, CVA, ARF, Chemo, Hep., AIDS, mental health diagnosis, sleep apnea, morbid obesity)? @ -[None] Was patient admitted / discharged? Hospital course, mention meds given and route, prescriptions, significant lab abnormalities, going to OR and other pertinent info. @ -[See above Undiagnosed new problem with uncertain prognosis? @ -[No] Drug Therapy requiring intensive monitoring for toxicity (Heparin, Nitro, Insulin, Cardizem)? @ -[No] Were any procedures done? @ -[No] Diagnosis/symptom? @ -[Exacerbation of schizoaffective disorder Acute, or Chronic, or Acute on Chronic? @ -[Acute on chronic Uncomplicated (without systemic symptoms) or Complicated (systemic symptoms)? @ -[Uncomplicated Side effects of treatment? @ -[No] Exacerbation, Progression, or Severe Exacerbation? @ -[Exacerbation Poses a threat to life or bodily function? How? (Chest pain, [place], [place], pneumonia, PE, COPD, DKA, ARF, appy, cholecystitis, CVA, Diverticulitis, Homicidal, Suicidal, threat to staff... and all critical care pts) @ -[No] All treatments are based on ideal body weight as in ED triage Disposition Clinical Impression: Acute psychosis, Schizoaffective disorder Disposition: HOME SELF-CARE Condition: Good Instructions (If sedation given, give patient instructions): Schizoaffective Disorder (ED) Is patient prescribed a controlled substance at d/c from ED?: No Referrals: None,Stated [Primary Care Provider] - 1-2 days
[2024-12-18 18:25] VITALS: BP 130/75; PULSE 84
== END 2024-12-18 18:25 | disposition home or self-care (01) ==
LOC: EC 16:07
DX: F25.9 Schizoaffective disorder, unspecified (principal); F23 Brief psychotic disorder; F17.290 Nicotine dependence, other tobacco product, uncomplicated; Z88.8 Allergy status to other drugs, medicaments and biological substances
CPT/HCPCS: 82075; 99284

== ENCOUNTER 2024-12-20 03:05 | Emergency (ER) | payer MEDICARE, OTHER ==
[2024-12-20 03:15] VITALS: RESP 20; TEMP 98
--- NOTE | 2024-12-20 03:43 | ED ---
General Adult HPI - General Chief complaint: Abdominal Pain Stated complaint: abd pain Time Seen by Provider: 12/20/24 03:23 Source: patient Mode of arrival: ambulatory Limitations: no limitations - History of Present Illness Initial comments: Patient is a pleasant 49-year-old gentleman past medical history of polysubstance abuse, GERD presenting today for exacerbation of GERD. Patient states that he is here for GERD exacerbation. Has had a few episodes of nonbloody nonbilious emesis. States he has been drinking a lot of coffee lately. States he has been taking psychedelics to help manage his psychiatric issues and abdominal pain. States he also smoked marijuana today which helped his abdominal pain. No black or bloody stools. No chest pain or shortness of breath. - Related Data Home Medications Medication Instructions Recorded Confirmed Sertraline [Zoloft] 50 mg PO HS 11/19/24 11/19/24 fluPHENAZine decanoate [Prolixin 50 mg IM Q7D 11/19/24 11/19/24 Decanoate] Allergies Allergy/AdvReac Type Severity Reaction Status Date / Time cat dander Allergy Itching Verified 12/20/24 03:13 oxcarbazepine AdvReac seizures Verified 12/20/24 03:13 [From Trileptal] paliperidone [From Invega] AdvReac delusional Verified 12/20/24 03:13 risperidone [From Risperdal] AdvReac seizures Verified 12/20/24 03:13 Review of Systems ROS Statement: Those systems with pertinent positive or pertinent negative responses have been documented in the HPI. ROS Other: All systems not noted in ROS Statement are negative. Past Medical History Past Medical History: GERD/Reflux, Musculoskeletal Disorder, Seizure Disorder Additional Past Medical History / Comment(s): scoliosis, herpes, hiatal hernia, migraines, Hepatitis C History of Any Multi-Drug Resistant Organisms: None Reported Past Surgical History: No Surgical Hx Reported Additional Past Surgical History / Comment(s): EGD Past Anesthesia/Blood Transfusion Reactions: No Reported Reaction Past Psychological History: Anxiety, Bipolar, Depression, Schizoaffective Disorder Smoking Status: Current every day smoker, Vaper Past Alcohol Use History: Rare Past Drug Use History: Cocaine, Heroin, IV Drug Use, Marijuana, Methamphetamine, Opiates, Prescription Drug Abuse - Past Family History Mother History Unknown: Yes Family Medical History: No Reported History Additional Family Medical History / Comment(s): from suicide Father History Unknown: Yes Family Medical History: No Reported History Additional Family Medical History / Comment(s): Reports that he is currently in the stages of dying- but wont clarify further. Inititally the patient stated his father was . General Exam - General Exam Comments Initial Comments: PE: CONSTITUTIONAL: No apparent distress, well appearing SKIN: Warm, dry, no jaundice, hives or petechiae EYES: Pupils are equally round, extraocular movements intact without nystagmus, clear conjunctiva, non-icteric sclera HENT: Normocephalic, atraumatic, moist mucus membranes, oropharynx clear without exudates NECK: , Full range of motion, normal appearance PULMONARY: Clear to auscultation without wheezes, rhonchi, or rales, normal excursion, no accessory muscle use and no stridor CARDIOVASCULAR: Regular rate, rhythm, normal S1 and S2. No appreciated murmurs, rubs or gallops. Strong radial pulses with intact distal perfusion. No lower extremity edema GASTROINTESTINAL: Soft, active bowel sounds throughout, non-tender, non- distended, no palpable masses, no rebound or guarding. No hepatosplenomegaly GENITOURINARY: MUSCULOSKELETAL: Extremities have no gross deformity, no edema, redness, or swelling. No calf swelling NEUROLOGIC:_a/o x 3, GCS 15, normal mentation and speech. Moves all extremities x 4 without motor or sensory deficit PSYCHIATRIC:_normal mood and affect, thought process is tangential, speech is rapid and pressured, pt is calm and cooperative, pleasant, denies SI/HI Limitations: no limitations Course Vital Signs 12/20/24 03:13 Temperature 98 F Pulse Rate 120 H Respiratory 20 Rate Blood Pressure 146/88 O2 Sat by Pulse 98 Oximetry Medical Decision Making - Medical Decision Making Was pt. sent in by a medical professional or institution (, PA, INTERNAL MEDICINE PHYSICIAN, urgent care, hospital, or half-way...) When possible be specific @ -[No] Did you speak to anyone other than the patient for history (EMS, parent, family, police, friend...)? What history was obtained from this source @ -[No] Did you review nursing and triage notes (agree or disagree)? Why? @ -[I reviewed and agree with nursing and triage notes] Were old charts reviewed (outside hosp., previous admission, EMS record, old EKG, old radiological studies, urgent care reports/EKG's, half-way records)? Report findings @ -[Medical records reviewed]-patient has been to our ER frequently, most recent visit which was on 12/18/2024 for psychiatric complaint, of note today patient denies SI/HI Differential Diagnosis (chest pain, altered mental status, abdominal pain women, abdominal pain men, vaginal bleeding, weakness, fever, dyspnea, syncope, headache, dizziness, GI bleed, back pain, seizure, CVA, palpatations, mental health, musculoskeletal)? @Differential Abdominal Pain Men: Appendicitis, cholecystitis, diverticulosis, ischemic bowel, pancreatitis, hepatitis, UTI, gastroenteritis, AAA, incarcerated hernia, bowel obstruction, constipation, inflammatory bowel, hepatitis, peptic ulcer disease, splenic infarction, perforated viscus, testicular torsion, this is not meant to be an all-inclusive list EKG interpreted by me (3pts min.). @ -[As above] X-rays interpreted by me (1pt min.). @ -[None done] CT interpreted by me (1pt min.). @ -[None done] U/S interpreted by me (1pt. min.). @ -[None done] What testing was considered but not performed or refused? (CT, X-rays, U/S, labs)? Why? @Labs and imaging were considered however patient states that his symptoms are consistent with usual GERD exacerbations, was agreeable with trialing GI me dications, if no improvement will consider adding labs. What meds were considered but not given or refused? Why? @ -[None] Did you discuss the management of the patient with other professionals (lisa monae i.e. , PA, INTERNAL MEDICINE PHYSICIAN, lab, RT, psych nurse, certified social workers in health care, manager willow, teacher, ict help desk officer, classification case manager)? Give summary @ -[No] Was smoking cessation discussed for >3mins.? @ -[No] Was critical care preformed (if so, how long)? @ -[No] Were there social determinants of health that impacted care today? How? (Homelessness, low income, unemployed, alcoholism, drug addiction, transportation, low edu. Level, literacy, decrease access to med. care, senior living, rehab)? Homelessness, polysubstance abuse Was there de-escalation of care discussed even if they declined (Discuss DNR or withdrawal of care, Hospice)? @ -[No] What co-morbidities impacted this encounter? (DM, HTN, Smoking, COPD, CAD, Cancer, CVA, ARF, Chemo, Hep., AIDS, mental health diagnosis, sleep apnea, morbid obesity)? @Schizoaffective disorder, polysubstance abuse, GERD Was patient admitted / discharged? Hospital course, mention meds given and route, prescriptions, significant lab abnormalities, going to OR and other pertinent info. @ -[hospital course] patient is a 49-year-old male history schizoaffective disorder, polysubstance abuse, homelessness, GERD presenting today for exacerbation of his GERD. Patient is tachycardic on arrival though does endorse using psychedelics and marijuana prior to arrival. He does not appear to be in any acute distress or ill-appearing. He does have rapid and tangential speech though is calm and cooperative, denying SI or HI. Agreeable with plan for GI cocktail and will reassess. Patient endorses improvement of symptoms. He is tolerating p.o. intake. Will be discharged home Undiagnosed new problem with uncertain prognosis? @ -[No] Drug Therapy requiring intensive monitoring for toxicity (Heparin, Nitro, Insulin, Cardizem)? @ -[No] Were any procedures done? @ -[No] Diagnosis/symptom? @GERD Acute, or Chronic, or Acute on Chronic? @Acute Uncomplicated (without systemic symptoms) or Complicated (systemic symptoms)? @Uncomplicated Side effects of treatment? @ -[No] Exacerbation, Progression, or Severe Exacerbation? @ -[No] Poses a threat to life or bodily function? How? (Chest pain, [place], [place], pneumonia, PE, COPD, DKA, ARF, appy, cholecystitis, CVA, Diverticulitis, Homicidal, Suicidal, threat to staff... and all critical care pts) @ -[No] Disposition Clinical Impression: GERD (gastroesophageal reflux disease), Hallucinogen use, Cannabis use disorder Disposition: HOME SELF-CARE Condition: Good Instructions (If sedation given, give patient instructions): GERD (Gastroesophageal Reflux Disease) (ED) Additional Instructions: Every disease is a spectrum and a small chance still exists that a serious condition could develop, for this reason, please monitor yourself closely for new, changing or worsening symptoms, symptoms that that do not improve over the course of the next 48 hours, vomiting blood, bloody or black stools, [fever], inability to tolerate/keep down fluids or your medications, inability to follow up with outpatient providers as instructed and should you experience these symptoms or should you have any further concerns for your wellbeing please return to the ED or call 911 immediately. PLEASE call your primary care physician as soon as possible to arrange / discuss plan for followup appointment. Appointment in the next 1-3 days is strongly encouraged if possible. PLEASE let us know here before you leave if there is anything further we can do to be of any assistance. Take care and feel Better! Is patient prescribed a controlled substance at d/c from ED?: No Referrals: None,Stated [Primary Care Provider] - 1-2 days
[2024-12-20] MEDS: LIDOCAINE VISCOUS 2% 15 ML CUP PO ONE (03:49)
[2024-12-20] MEDS: MAG HYDROX/AL HYDROX/SIMETH 30 ML CUP PO STA (03:49)
[2024-12-20] MEDS: LORazepam 1 MG TAB PO STA (03:50)
[2024-12-20] MEDS: FAMOTIDINE 20 MG TAB PO STA (03:50)
[2024-12-20] MEDS: PANTOPRAZOLE 40 MG TABLET PO STA (03:50)
[2024-12-20 04:51] VITALS: BP 130/85; PULSE 105
== END 2024-12-20 04:51 | disposition home or self-care (01) ==
LOC: EC 03:05
DX: K21.9 Gastro-esophageal reflux disease without esophagitis (principal); F16.90 Hallucinogen use, unspecified, uncomplicated; F12.90 Cannabis use, unspecified, uncomplicated; F25.9 Schizoaffective disorder, unspecified; F19.10 Other psychoactive substance abuse, uncomplicated; F17.290 Nicotine dependence, other tobacco product, uncomplicated; Z91.09 Other allergy status, other than to drugs and biological substances; Z88.8 Allergy status to other drugs, medicaments and biological substances
CPT/HCPCS: 99284

== ENCOUNTER 2024-12-20 19:53 | Emergency (ER) | payer MEDICARE, OTHER ==
[2024-12-20 20:06] VITALS: RESP 18; TEMP 97.5
--- NOTE | 2024-12-20 20:51 | ED ---
General Adult HPI - General Chief complaint: Abdominal Pain Stated complaint: Abd pain,Chills Time Seen by Provider: 12/20/24 20:08 Source: patient, RN notes reviewed Mode of arrival: ambulatory Limitations: no limitations - History of Present Illness Initial comments: 49-year-old male presents to the emergency department for evaluation of epigastric abdominal pain. Patient states that this been going on for 2 years. He reports that the pain is worse when he eats acidic foods. He notes that he has noticed chills over the past 2 days. He endorses nausea and vomiting but does not feel nauseous at this time. Denies any known fever. Denies any prior abdominal surgeries. - Related Data Home Medications Medication Instructions Recorded Confirmed Sertraline [Zoloft] 50 mg PO HS 11/19/24 11/19/24 fluPHENAZine decanoate [Prolixin 50 mg IM Q7D 11/19/24 11/19/24 Decanoate] Allergies Allergy/AdvReac Type Severity Reaction Status Date / Time cat dander Allergy Itching Verified 12/20/24 20:06 oxcarbazepine AdvReac seizures Verified 12/20/24 20:06 [From Trileptal] paliperidone [From Invega] AdvReac delusional Verified 12/20/24 20:06 risperidone [From Risperdal] AdvReac seizures Verified 12/20/24 20:06 Review of Systems ROS Statement: Those systems with pertinent positive or pertinent negative responses have been documented in the HPI. ROS Other: All systems not noted in ROS Statement are negative. Past Medical History Past Medical History: GERD/Reflux, Musculoskeletal Disorder, Seizure Disorder Additional Past Medical History / Comment(s): scoliosis, herpes, hiatal hernia, migraines, Hepatitis C History of Any Multi-Drug Resistant Organisms: None Reported Past Surgical History: No Surgical Hx Reported Additional Past Surgical History / Comment(s): EGD Past Anesthesia/Blood Transfusion Reactions: No Reported Reaction Past Psychological History: Anxiety, Bipolar, Depression, Schizoaffective Disorder Smoking Status: Current every day smoker, Vaper Past Alcohol Use History: Rare Past Drug Use History: Cocaine, Heroin, IV Drug Use, Marijuana, Methamphetamine, Opiates, Prescription Drug Abuse - Past Family History Mother History Unknown: Yes Family Medical History: No Reported History Additional Family Medical History / Comment(s): from suicide Father History Unknown: Yes Family Medical History: No Reported History Additional Family Medical History / Comment(s): Reports that he is currently in the stages of dying- but wont clarify further. Inititally the patient stated his father was . General Exam Limitations: no limitations General appearance: alert, in no apparent distress Head exam: Present: atraumatic, normocephalic, normal inspection Course Vital Signs 12/20/24 19:58 Temperature 97.5 F L Pulse Rate 83 Respiratory 18 Rate Blood Pressure 133/91 O2 Sat by Pulse 98 Oximetry Medical Decision Making - Medical Decision Making Was pt. sent in by a medical professional or institution (, PA, AMMONIA STILL OPERATOR, urgent care, hospital, or usp...) When possible be specific @ -[No] Did you speak to anyone other than the patient for history (EMS, parent, family, police, friend...)? What history was obtained from this source @ -[No] Did you review nursing and triage notes (agree or disagree)? Why? @ -[I reviewed and agree with nursing and triage notes] Were old charts reviewed (outside hosp., previous admission, EMS record, old EKG, old radiological studies, urgent care reports/EKG's, usp records)? Report findings @ -[No old charts were reviewed] Differential Diagnosis (chest pain, altered mental status, abdominal pain women, abdominal pain men, vaginal bleeding, weakness, fever, dyspnea, syncope, headache, dizziness, GI bleed, back pain, seizure, CVA, palpatations, mental health, musculoskeletal)? @ -Differential Abdominal Pain Men: Appendicitis, cholecystitis, diverticulosis, ischemic bowel, pancreatitis, hepatitis, UTI, gastroenteritis, AAA, incarcerated hernia, bowel obstruction, constipation, inflammatory bowel, hepatitis, peptic ulcer disease, splenic infarction, perforated viscus, testicular torsion, this is not meant to be an all-inclusive list EKG interpreted by me (3pts min.). @ -[As above] X-rays interpreted by me (1pt min.). @ -[None done] CT interpreted by me (1pt min.). @ -[None done] U/S interpreted by me (1pt. min.). @ -[None done] What testing was considered but not performed or refused? (CT, X-rays, U/S, labs)? Why? @ -[None] What meds were considered but not given or refused? Why? @ -[None] Did you discuss the management of the patient with other professionals (professionals i.e. , PA, AMMONIA STILL OPERATOR, lab, RT, psych nurse, social media designer, personal shopper, teacher, liaison officer, corrections caseworker)? Give summary @ -[No] Was smoking cessation discussed for >3mins.? @ -[No] Was critical care preformed (if so, how long)? @ -[No] Were there social determinants of health that impacted care today? How? (Homelessness, low income, unemployed, alcoholism, drug addiction, transportation, low edu. Level, literacy, decrease access to med. care, [facility], rehab)? @ -[No] Was there de-escalation of care discussed even if they declined (Discuss DNR or withdrawal of care, Hospice)? DNR status @ -[No] What co-morbidities impacted this encounter? (DM, HTN, Smoking, COPD, CAD, Cancer, CVA, ARF, Chemo, Hep., AIDS, mental health diagnosis, sleep apnea, morbid obesity)? @ -[None] Was patient admitted / discharged? Hospital course, mention meds given and route, prescriptions, significant lab abnormalities, going to OR and other pertinent info. @ -[hospital course] Undiagnosed new problem with uncertain prognosis? @ -[No] Drug Therapy requiring intensive monitoring for toxicity (Heparin, Nitro, Insulin, Cardizem)? @ -[No] Were any procedures done? @ -[No] Diagnosis/symptom? @ -[default] Acute, or Chronic, or Acute on Chronic? @ -[default] Uncomplicated (without systemic symptoms) or Complicated (systemic symptoms)? @ -[default] Side effects of treatment? @ -[No] Exacerbation, Progression, or Severe Exacerbation? @ -[No] Poses a threat to life or bodily function? How? (Chest pain, USA, [place], pneumonia, PE, COPD, DKA, ARF, appy, cholecystitis, CVA, Diverticulitis, Homicidal, Suicidal, threat to staff... and all critical care pts) @ -[No] - Lab Data Result diagrams: 12/20/24 21:11 12/20/24 21:11 Lab Results 04/20/25 04/20/25 04/20/25 Range/Units 21:00 21:11 21:11 WBC 8.24 (4.50-10.00) 10*3/uL RBC 4.94 (4.40-5.60) 10*6/uL Hgb 15.0 (13.0-17.0) g/dL Hct 43.4 (39.6-50.0) % MCV 87.9 (80.0-97.0) fL MCH 30.4 (27.0-32.0) pg MCHC 34.6 (32.0-37.0) g/dL Plt Count 258 (140-440) 10*3/uL MPV 9.4 L (9.5-12.2) fL Immature Gran % (Auto) 0.4 % Neutrophils % 67.2 % Lymphocytes % 21.4 % Monocytes % 7.0 % Eosinophils % 2.9 % Basophils % 1.1 % Immature Gran # 0.03 (0.00-0.04) 10*3/uL Neutrophils # 5.54 (1.80-7.70) 10*3/uL Lymphocytes # 1.76 (0.90-5.00) 10*3/uL Monocytes # 0.58 (0.20-1.00) 10*3/uL Eosinophils # 0.24 (0.04-0.35) 10*3/uL Basophils # 0.09 (0.00-0.10) 10*3/uL Sodium 135 L (137-145) mmol/L Potassium 4.0 (3.5-5.1) mmol/L Chloride 97 L (98-107) mmol/L Carbon Dioxide 31 H (22-30) mmol/L Anion Gap 7 mmol/L BUN 13 (9-20) mg/dL Creatinine 0.91 (0.66-1.25) mg/dL Est GFR (CKD-EPI)AfAm >90 (>60 ml/min/1.73 sqM) Est GFR (CKD-EPI)NonAf >90 (>60 ml/min/1.73 sqM) Glucose 94 (74-99) mg/dL Calcium 10.2 (8.4-10.2) mg/dL Total Bilirubin 0.7 (0.2-1.3) mg/dL AST 49 (17-59) U/L ALT 62 H (4-49) U/L Alkaline Phosphatase 71 (38-126) U/L Total Protein 7.5 (6.3-8.2) g/dL Albumin 4.5 (3.5-5.0) g/dL Amylase 89 (30-110) U/L Lipase 372 H (23-300) U/L Urine Color Light Yellow Urine Appearance Clear (Clear) Urine pH 7.5 (5.0-8.0) Ur Specific [place] 1.009 (1.001-1.035) Urine Protein Negative (Negative) Urine Glucose (UA) Negative (Negative) Urine Ketones Trace H (Negative) Urine Blood Negative (Negative) Urine Nitrite Negative (Negative) Urine Bilirubin Negative (Negative) Urine Urobilinogen <2.0 (<2.0) mg/dL Ur Leukocyte Esterase Negative (Negative) Urine Opiates Screen Not Detected (NotDetected) Ur Oxycodone Screen Not Detected (NotDetected) Urine Methadone Screen Not Detected (NotDetected) Ur Barbiturates Screen Not Detected (NotDetected) U Tricyclic Antidepress Not Detected (NotDetected) Ur Phencyclidine Scrn Not Detected (NotDetected) Ur Amphetamines Screen Not Detected (NotDetected) U Methamphetamines Scrn Not Detected (NotDetected) U Benzodiazepines Scrn Detected H (NotDetected) Urine Cocaine Screen Not Detected (NotDetected) U Marijuana (THC) Screen Detected H (NotDetected) Disposition Clinical Impression: Abdominal pain, GERD (gastroesophageal reflux disease) Disposition: HOME SELF-CARE Condition: Stable Instructions (If sedation given, give patient instructions): Abdominal Pain (ED) Additional Instructions: Please follow-up with your doctor. Return to the emergency department for new or worsening symptoms. Is patient prescribed a controlled substance at d/c from ED?: No Referrals: None,Stated [Primary Care Provider] - 1-2 days
[2024-12-20 21:24] LABS: Basophils # (A) 0.09 10*3/uL (0.00-0.10); Basophils % (A) 1.1 %; Eosinophils # (A) 0.24 10*3/uL (0.04-0.35); Eosinophils % (A) 2.9 %; HCT 43.4 % (39.6-50.0); Lymphocytes # (A) 1.76 10*3/uL (0.90-5.00); Lymphocytes % (A) 21.4 %; MCH 30.4 pg (27.0-32.0); MCHC 34.6 g/dL (32.0-37.0); MCV 87.9 fL (80.0-97.0); Mean Platelet Volume 9.4 fL (9.5-12.2); Monocytes # (A) 0.58 10*3/uL (0.20-1.00); Neutrophils # (A) 5.54 10*3/uL (1.80-7.70); Neutrophils % (A) 67.2 %; Platelet Count 258 10*3/uL (140-440); RBC 4.94 10*6/uL (4.40-5.60); RDW 13.2 % (11.5-14.5); WBC 8.24 10*3/uL (4.50-10.00)
[2024-12-20 21:32] LABS: Appearance,Urine Clear (Clear); Bilirubin,Urine Negative (Negative); Blood,Urine Negative (Negative); Color,Urine Light Yellow; Glucose,Urine (UA) Negative (Negative); Ketones,Urine Trace (Negative); Leukocyte Esterase,Urine Negative (Negative); Nitrite,Urine Negative (Negative); PH, Urine 7.5 (5.0-8.0); Protein,Urine Negative (Negative); Specific Gravity,Urine 1.009 (1.001-1.035); Urobilinogen,Urine <2.0 mg/dL (<2.0)
[2024-12-20 21:39] LABS: ALT 62 U/L (4-49); AST 49 U/L (17-59); African American GFR (CKD) >90 (>60 ml/min/1.73 sqM); Albumin 4.5 g/dL (3.5-5.0); Alkaline Phosphatase 71 U/L (38-126); Amylase 89 U/L (30-110); Anion Gap 7 mmol/L; Blood Urea Nitrogen 13 mg/dL (9-20); Calcium 10.2 mg/dL (8.4-10.2); Carbon Dioxide 31 mmol/L (22-30); Chloride 97 mmol/L (98-107); Glucose 94 mg/dL (74-99); Lipase 372 U/L (23-300); Non-African American GFR(CKD) >90 (>60 ml/min/1.73 sqM); Sodium 135 mmol/L (137-145); Total Bilirubin 0.7 mg/dL (0.2-1.3); Total Protein 7.5 g/dL (6.3-8.2)
[2024-12-20 21:44] LABS: Amphetamine Screen,Urine Not Detected (NotDetected); Barbiturate Screen,Urine Not Detected (NotDetected); Benzodiazepines Screen,Urine Detected (NotDetected); Cocaine Screen,Urine Not Detected (NotDetected); Methadone Screen, Urine Not Detected (NotDetected); Opiate Screen,Urine Not Detected (NotDetected); Oxycodone Screen, Urine Not Detected (NotDetected); Phencyclidine Screen,Urine Not Detected (NotDetected); Tricyclic Antidepressant,Urine Not Detected (NotDetected); Urn Cannabinoid Scrn Detected (NotDetected)
[2024-12-20] MEDS: ONDANSETRON 4 MG/2 ML VIAL IVP STA (22:29)
[2024-12-20] MEDS: KETOROLAC 15 MG/ML 1 ML VIAL IVP STA (22:29)
[2024-12-20 22:37] VITALS: BP 132/97; PULSE 87
== END 2024-12-20 22:36 | disposition home or self-care (01) ==
LOC: EC 19:53
DX: K21.9 Gastro-esophageal reflux disease without esophagitis (principal); F17.290 Nicotine dependence, other tobacco product, uncomplicated; Z88.8 Allergy status to other drugs, medicaments and biological substances
CPT/HCPCS: 36415; 80053; 80306; 81003; 82150; 83690; 85025; 93005; 99284

== ENCOUNTER 2024-12-21 05:31 | Emergency (ER) | payer MEDICARE, OTHER ==
--- NOTE | 2024-12-21 06:39 | ED ---
General Adult HPI - General Chief complaint: Recheck/Abnormal Lab/Rx Stated complaint: Dizziness Time Seen by Provider: 12/21/24 06:00 Source: patient, RN notes reviewed Mode of arrival: ambulatory Limitations: no limitations - History of Present Illness Initial comments: 49-year-old male presents emergency department chief complaint of feeling faint. Patient is well-known to the emergency department. Patient states he has not slept in a while states that he is very hungry has not ate or drank much. Patient denies any chest pain shortness of breath headache focal weakness. Patient does have history of drug abuse. Patient denies any current use denies any leg weakness no other associated symptoms. - Related Data Home Medications Medication Instructions Recorded Confirmed Sertraline [Zoloft] 50 mg PO HS 11/19/24 11/19/24 fluPHENAZine decanoate [Prolixin 50 mg IM Q7D 11/19/24 11/19/24 Decanoate] Allergies Allergy/AdvReac Type Severity Reaction Status Date / Time cat dander Allergy Itching Verified 12/21/24 05:57 oxcarbazepine AdvReac seizures Verified 12/21/24 05:57 [From Trileptal] paliperidone [From Invega] AdvReac delusional Verified 12/21/24 05:57 risperidone [From Risperdal] AdvReac seizures Verified 12/21/24 05:57 Review of Systems ROS Statement: Those systems with pertinent positive or pertinent negative responses have been documented in the HPI. ROS Other: All systems not noted in ROS Statement are negative. Past Medical History Past Medical History: GERD/Reflux, Musculoskeletal Disorder, Seizure Disorder Additional Past Medical History / Comment(s): scoliosis, herpes, hiatal hernia, migraines, Hepatitis C History of Any Multi-Drug Resistant Organisms: None Reported Past Surgical History: No Surgical Hx Reported Additional Past Surgical History / Comment(s): EGD Past Anesthesia/Blood Transfusion Reactions: No Reported Reaction Past Psychological History: Anxiety, Bipolar, Depression, Schizoaffective Disorder Smoking Status: Current every day smoker, Vaper Past Alcohol Use History: Rare Past Drug Use History: Cocaine, Heroin, IV Drug Use, Marijuana, Methamphetamine, Opiates, Prescription Drug Abuse - Past Family History Mother History Unknown: Yes Family Medical History: No Reported History Additional Family Medical History / Comment(s): from suicide Father History Unknown: Yes Family Medical History: No Reported History Additional Family Medical History / Comment(s): Reports that he is currently in the stages of dying- but wont clarify further. Inititally the patient stated his father was . General Exam Limitations: no limitations General appearance: alert, in no apparent distress Head exam: Present: atraumatic, normocephalic, normal inspection Eye exam: Present: normal appearance, PERRL, EOMI. Absent: scleral icterus, conjunctival injection, periorbital swelling ENT exam: Present: normal exam, normal oropharynx, mucous membranes moist Neck exam: Present: normal inspection, full ROM. Absent: tenderness, meningismus, lymphadenopathy Respiratory exam: Present: normal lung sounds bilaterally. Absent: respiratory distress, wheezes, rales, rhonchi, stridor Cardiovascular Exam: Present: regular rate, normal rhythm, normal heart sounds. Absent: systolic murmur, diastolic murmur, rubs, gallop, clicks GI/Abdominal exam: Present: soft, normal bowel sounds. Absent: distended, tenderness, guarding, rebound, rigid Neurological exam: Present: alert, oriented X3, CN II-XII intact, reflexes normal. Absent: motor sensory deficit Course Vital Signs 12/21/24 05:52 Temperature 97.6 F Pulse Rate 95 Respiratory 16 Rate Blood Pressure 129/85 O2 Sat by Pulse 98 Oximetry EKG Findings - EKG Comments: EKG Findings:: EKG performed at 6: 47 sinus rhythm rate of 86 [place] 154 QRS 94 QT/QTc 350/[address] elevation depression noted - EKG Results: EKG: interpreted by ERMD Medical Decision Making - Medical Decision Making Was pt. sent in by a medical professional or institution (, PA, CAR OILER, urgent care, hospital, or penitentiary...) When possible be specific @ -No Did you speak to anyone other than the patient for history (EMS, parent, family, police, friend...)? What history was obtained from this source @ -No Did you review nursing and triage notes (agree or disagree)? Why? @ -I reviewed and agree with nursing and triage notes Were old charts reviewed (outside hosp., previous admission, EMS record, old EKG, old radiological studies, urgent care reports/EKG's, penitentiary records)? Report findings @ -No old charts were reviewed Differential Diagnosis (chest pain, altered mental status, abdominal pain women, abdominal pain men, vaginal bleeding, weakness, fever, dyspnea, syncope, headache, dizziness, GI bleed, back pain, seizure, CVA, palpatations, mental health, musculoskeletal)? @ -Differential Weakness: Hypoglycemia, shock, sepsis, hyponatremia, anemia, infection, MT, ETOH, adverse medicine reaction, overdose, stroke, this is not meant to be an all-inclusive list. EKG interpreted by me (3pts min.). @ -As above X-rays interpreted by me (1pt min.). @ -None done CT interpreted by me (1pt min.). @ -None done U/S interpreted by me (1pt. min.). @ -None done What testing was considered but not performed or refused? (CT, X-rays, U/S, labs)? Why? @ -None What meds were considered but not given or refused? Why? @ -None Did you discuss the management of the patient with other professionals (professionals i.e. , PA, CAR OILER, lab, RT, psych nurse, social work case manager, pbx wire chief, teacher, logistics supply officer, medical case worker)? Give summary @ -No Was smoking cessation discussed for >3mins.? @ -No Was critical care preformed (if so, how long)? @ -No Were there social determinants of health that impacted care today? How? (Homelessness, low income, unemployed, alcoholism, drug addiction, transportation, low edu. Level, literacy, decrease access to med. care, usp, rehab)? @ -No Was there de-escalation of care discussed even if they declined (Discuss DNR or withdrawal of care, Hospice)? DNR status @ -No What co-morbidities impacted this encounter? (DM, HTN, Smoking, COPD, CAD, Cancer, CVA, ARF, Chemo, Hep., AIDS, mental health diagnosis, sleep apnea, morbid obesity)? @ -None Was patient admitted / discharged? Hospital course, mention meds given and route, prescriptions, significant lab abnormalities, going to OR and other pertinent info. @ -disharge patient awake alert and orientated. Patient states he is just more tired than anything patient is asymptomatic currently will be discharged in stable condition return parameters discussed. Patient does have a long history of drug abuse advised to refrain from any drug use. Undiagnosed new problem with uncertain prognosis? @ -No Drug Therapy requiring intensive monitoring for toxicity (Heparin, Nitro, Insulin, Cardizem)? @ -No Were any procedures done? @ -No Diagnosis/symptom? @ -Fatigue Acute, or Chronic, or Acute on Chronic? @ -Acute Uncomplicated (without systemic symptoms) or Complicated (systemic symptoms)? @ -uncomplicated Side effects of treatment? @ -No Exacerbation, Progression, or Severe Exacerbation? @ -No Poses a threat to life or bodily function? How? (Chest pain, USA, MT, pneumonia, PE, COPD, DKA, ARF, appy, cholecystitis, CVA, Diverticulitis, Homicidal, Suicidal, threat to staff... and all critical care pts) @ -No - Lab Data Lab Results 12/21/24 Range/Units 06:39 POC Glucose (mg/dL) 105 (70-110) mg/dL POC [employer] Scientist ID Disposition Clinical Impression: Fatigue Disposition: HOME SELF-CARE Condition: Stable Instructions (If sedation given, give patient instructions): Fatigue (ED) Additional Instructions: Please return to the Emergency Department if symptoms worsen or any other concerns. Is patient prescribed a controlled substance at d/c from ED?: No Referrals: None,Stated [Primary Care Provider] - 1-2 days Time of Disposition: 07:25
[2024-12-21 06:40] LABS: Glucose,Whole Blood 105 mg/dL (70-110)
[2024-12-21 07:44] VITALS: BP 134/90; PULSE 83; RESP 20; TEMP 98.4
== END 2024-12-21 07:43 | disposition home or self-care (01) ==
LOC: EC 05:31
DX: F19.11 Other psychoactive substance abuse, in remission (principal); R53.83 Other fatigue; F17.290 Nicotine dependence, other tobacco product, uncomplicated; Z88.8 Allergy status to other drugs, medicaments and biological substances
CPT/HCPCS: 36415; 93005; 99284

== ENCOUNTER 2024-12-21 19:02 | Emergency (ER) | payer MEDICARE, OTHER ==
[2024-12-21 19:18] VITALS: BP 140/78; PULSE 102; RESP 20; TEMP 97.9
--- NOTE | 2024-12-21 20:06 | ED ---
Abdominal Pain HPI - General Chief Complaint: Abdominal Pain Stated Complaint: abd pain Time Seen by Provider: 12/21/24 19:18 Source: patient, RN notes reviewed Mode of arrival: ambulatory Limitations: no limitations - History of Present Illness Initial Comments: This is a well-known 49-year-old male with history including GERD, hiatal hernia and illicit drug use presenting for upset stomach x 1 day. Patient endorses a history of chronic abdominal issues and peptic ulcer disease. States pain right now is 5/10. Endorses use of marijuana with some relief but otherwise denies [id number] medication use for current symptoms. Denies fever, chills, chest pain, dyspnea, N/V/D. MD Complaint: abdominal pain Onset/Timin -: hour(s) Location: epigastric Radiation: none Migration to: no migration Severity scale (1-10): 5 Quality: aching Consistency: constant Improves With: nothing Worsens With: nothing Associated Symptoms: denies other symptoms Treatments Prior to Arrival: other ("Marijuana") - Related Data Home Medications Medication Instructions Recorded Confirmed Sertraline [Zoloft] 50 mg PO HS 11/19/24 11/19/24 fluPHENAZine decanoate [Prolixin 50 mg IM Q7D 11/19/24 11/19/24 Decanoate] Previous Rx's Medication Instructions Recorded Famotidine [Pepcid] 20 mg PO BID #28 tablet 12/21/24 Pantoprazole [Protonix] 40 mg PO DAILY #14 tab 12/21/24 Allergies Allergy/AdvReac Type Severity Reaction Status Date / Time cat dander Allergy Itching Verified 12/21/24 19:18 oxcarbazepine AdvReac seizures Verified 12/21/24 19:18 [From Trileptal] paliperidone [From Invega] AdvReac delusional Verified 12/21/24 19:18 risperidone [From Risperdal] AdvReac seizures Verified 12/21/24 19:18 Review of Systems ROS Statement: Those systems with pertinent positive or pertinent negative responses have been documented in the HPI. ROS Other: All systems not noted in ROS Statement are negative. Past Medical History Past Medical History: GERD/Reflux, Musculoskeletal Disorder, Seizure Disorder Additional Past Medical History / Comment(s): scoliosis, herpes, hiatal hernia, migraines, Hepatitis C History of Any Multi-Drug Resistant Organisms: None Reported Past Surgical History: No Surgical Hx Reported Additional Past Surgical History / Comment(s): EGD Past Anesthesia/Blood Transfusion Reactions: No Reported Reaction Past Psychological History: Anxiety, Bipolar, Depression, Schizoaffective Disorder Smoking Status: Current every day smoker, Vaper Past Alcohol Use History: Rare Past Drug Use History: Cocaine, Heroin, IV Drug Use, Marijuana, Methamphetamine, Opiates, Prescription Drug Abuse - Past Family History Mother History Unknown: Yes Family Medical History: No Reported History Additional Family Medical History / Comment(s): from suicide Father History Unknown: Yes Family Medical History: No Reported History Additional Family Medical History / Comment(s): Reports that he is currently in the stages of dying- but wont clarify further. Inititally the patient stated his father was . General Exam Limitations: no limitations General appearance: alert, in no apparent distress Head exam: Present: atraumatic, normocephalic, normal inspection Eye exam: Present: normal appearance, PERRL, EOMI. Absent: scleral icterus, conjunctival injection, periorbital swelling ENT exam: Present: normal exam, mucous membranes moist Neck exam: Present: normal inspection. Absent: tenderness, meningismus, lymphadenopathy Respiratory exam: Present: normal lung sounds bilaterally. Absent: respiratory distress, wheezes, rales, rhonchi, stridor Cardiovascular Exam: Present: regular rate, normal rhythm, normal heart sounds. Absent: systolic murmur, diastolic murmur, rubs, gallop, clicks GI/Abdominal exam: Present: soft, tenderness (Positive mild epigastric TTP without guarding), normal bowel sounds. Absent: distended, guarding, rebound, rigid Extremities exam: Present: normal inspection, full ROM, normal capillary refill. Absent: tenderness, pedal edema, joint swelling, calf tenderness Back exam: Present: normal inspection Neurological exam: Present: alert, oriented X3, CN II-XII intact Psychiatric exam: Present: normal affect, normal mood Skin exam: Present: warm, dry, intact, normal color. Absent: rash Course Vital Signs 12/21/24 19:15 Temperature 97.9 F Pulse Rate 102 H Respiratory 20 Rate Blood Pressure 140/78 O2 Sat by Pulse 100 Oximetry Medical Decision Making - Medical Decision Making Was pt. sent in by a medical professional or institution (, PA, MANAGEMENT INTERN, urgent care, hospital, or alf...) When possible be specific @ -[No] Did you speak to anyone other than the patient for history (EMS, parent, family, police, friend...)? What history was obtained from this source @ -[No] Did you review nursing and triage notes (agree or disagree)? Why? @ -[I reviewed and agree with nursing and triage notes] Were old charts reviewed (outside hosp., previous admission, EMS record, old EKG, old radiological studies, urgent care reports/EKG's, alf records)? Report findings @ -[No old charts were reviewed] Differential Diagnosis (chest pain, altered mental status, abdominal pain women, abdominal pain men, vaginal bleeding, weakness, fever, dyspnea, syncope, headache, dizziness, GI bleed, back pain, seizure, CVA, palpatations, mental health, musculoskeletal)? @ -Differential Abdominal Pain Men: Appendicitis, cholecystitis, diverticulosis, ischemic bowel, pancreatitis, hepatitis, UTI, gastroenteritis, AAA, incarcerated hernia, bowel obstruction, constipation, inflammatory bowel, hepatitis, peptic ulcer disease, splenic infarction, perforated viscus, testicular torsion, this is not meant to be an all-inclusive list EKG interpreted by me (3pts min.). @ -Not done X-rays interpreted by me (1pt min.). @ -[None done] CT interpreted by me (1pt min.). @ -[None done] U/S interpreted by me (1pt. min.). @ -[None done] What testing was considered but not performed or refused? (CT, X-rays, U/S, labs)? Why? @ -[None] What meds were considered but not given or refused? Why? @ -[None] Did you discuss the management of the patient with other professionals (professionals i.e. , LEO, MANAGEMENT INTERN, lab, RT, psych nurse, social insurance specialist, turf grower, teacher, sailing officer, embedded case manager)? Give summary @ -[No] Was smoking cessation discussed for >3mins.? @ -[No] Was critical care preformed (if so, how long)? @ -[No] Were there social determinants of health that impacted care today? How? (Homelessness, low income, unemployed, alcoholism, drug addiction, transportation, low edu. Level, literacy, decrease access to med. care, halfway, rehab)? @ -[No] Was there de-escalation of care discussed even if they declined (Discuss DNR or withdrawal of care, Hospice)? DNR status @ -[No] What co-morbidities impacted this encounter? (DM, HTN, Smoking, COPD, CAD, Cancer, CVA, ARF, Chemo, Hep., AIDS, mental health diagnosis, sleep apnea, morbid obesity)? @ -[None] Was patient admitted / discharged? Hospital course, mention meds given and route, prescriptions, significant lab abnormalities, going to OR and other pertinent info. @ -[hospital course] Undiagnosed new problem with uncertain prognosis? @ -[No] Drug Therapy requiring intensive monitoring for toxicity (Heparin, Nitro, Insulin, Cardizem)? @ -[No] Were any procedures done? @ -[No] Diagnosis/symptom? @ -Epigastric pain Acute, or Chronic, or Acute on Chronic? @ -Acute Uncomplicated (without systemic symptoms) or Complicated (systemic symptoms)? @ -Uncomplicated Side effects of treatment? @ -[No] Exacerbation, Progression, or Severe Exacerbation? @ -[No] Poses a threat to life or bodily function? How? (Chest pain, [place], [place], pneumonia, PE, COPD, DKA, ARF, appy, cholecystitis, CVA, Diverticulitis, Homicidal, Suicidal, threat to staff... and all critical care pts) @ -[No] Disposition Clinical Impression: Abdominal pain Disposition: HOME SELF-CARE Condition: Good Instructions (If sedation given, give patient instructions): Abdominal Pain (ED) Additional Instructions: Follow-up with PCP for ongoing management of gastric issues. Prescriptions: Famotidine [Pepcid] 20 mg PO BID #28 tablet Pantoprazole [Protonix] 40 mg PO DAILY #14 tab Is patient prescribed a controlled substance at d/c from ED?: No Referrals: None,Stated [Primary Care Provider] - 1-2 days Molly Mccarthy MD [STAFF PHYSICIAN] - 1-2 days Time of Disposition: 20:39
[2024-12-21] MEDS: LIDOCAINE VISCOUS 2% 15 ML CUP PO ONE (20:13)
[2024-12-21] MEDS: PANTOPRAZOLE 40 MG TABLET PO STA (20:13)
[2024-12-21] MEDS: FAMOTIDINE 20 MG TAB PO STA (20:13)
== END 2024-12-21 20:49 | disposition home or self-care (01) ==
LOC: EC 19:02
DX: R10.13 Epigastric pain (principal); F12.90 Cannabis use, unspecified, uncomplicated; F17.290 Nicotine dependence, other tobacco product, uncomplicated; Z88.8 Allergy status to other drugs, medicaments and biological substances
CPT/HCPCS: 99283

== ENCOUNTER 2024-12-25 19:05 | Emergency (ER) | payer MEDICARE, OTHER ==
--- NOTE | 2024-12-25 20:32 | ED ---
General Adult HPI - General Source: patient Mode of arrival: ambulatory Limitations: no limitations <Carlos Herndon - Last Filed: 12/25/24 21:41> <Shadi Carmona - Last Filed: 12/26/24 00:08> - General Chief complaint: Psychiatric Symptoms Stated complaint: mental health Time Seen by Provider: 12/25/24 19:21 - History of Present Illness Initial comments: Dictation was produced using [employer]form dictation software. please excuse any grammatical, word or spelling errors. Chief Complaint: 49-year-old male with history of illicit drug use, psychiatric illness presents to the ER for depression History of Present Illness: Patient is 49-year-old male presents to the ER for depression. Patient has extensive history of illicit drug use. States that he is mostly here for depression but he has multiple complaints including nausea abdominal pain back pain headache, neck pain and extremity pain. States that he is hungry for some food. States that he is paranoid. Denies any suicidal or homicidal ideation. The ROS documented in this emergency department record has been reviewed and confirmed by me. Those systems with pertinent positive or negative responses have been documented in the HPI. All other systems are other negative and/or noncontributory. (Carlos Herndon) - Related Data Home Medications Medication Instructions Recorded Confirmed Sertraline [Zoloft] 50 mg PO HS 11/19/24 12/25/24 Aripiprazole Lauroxil [Aristada] 882 mg IM Q28D 12/25/24 12/25/24 cloZAPine [Clozaril] 50 mg PO HS 12/25/24 12/25/24 Previous Rx's Medication Instructions Recorded Famotidine [Pepcid] 20 mg PO BID #28 tablet 12/21/24 Pantoprazole [Protonix] 40 mg PO DAILY #14 tab 12/21/24 Allergies Allergy/AdvReac Type Severity Reaction Status Date / Time cat dander Allergy Itching Verified 12/25/24 20:16 oxcarbazepine AdvReac seizures Verified 12/25/24 20:16 [From Trileptal] paliperidone [From Invega] AdvReac delusional Verified 12/25/24 20:16 risperidone [From Risperdal] AdvReac seizures Verified 12/25/24 20:16 Review of Systems ROS Other: All systems not noted in ROS Statement are negative. <Carlos Herndon - Last Filed: 12/25/24 21:41> ROS Other: All systems not noted in ROS Statement are negative. <Shadi Carmona - Last Filed: 12/26/24 00:08> ROS Statement: Those systems with pertinent positive or pertinent negative responses have been documented in the HPI. Past Medical History Past Medical History: GERD/Reflux, Musculoskeletal Disorder, Seizure Disorder Additional Past Medical History / Comment(s): scoliosis, herpes, hiatal hernia, migraines, Hepatitis C History of Any Multi-Drug Resistant Organisms: None Reported Past Surgical History: No Surgical Hx Reported Additional Past Surgical History / Comment(s): EGD Past Anesthesia/Blood Transfusion Reactions: No Reported Reaction Past Psychological History: Anxiety, Bipolar, Depression, Schizoaffective Disorder Smoking Status: Current every day smoker, Vaper Past Alcohol Use History: Rare Past Drug Use History: Cocaine, Heroin, IV Drug Use, Marijuana, Methamphetamine, Opiates, Prescription Drug Abuse - Past Family History Mother History Unknown: Yes Family Medical History: No Reported History Additional Family Medical History / Comment(s): from suicide Father History Unknown: Yes Family Medical History: No Reported History Additional Family Medical History / Comment(s): Reports that he is currently in the stages of dying- but wont clarify further. Inititally the patient stated his father was . <Carlos Herndon - Last Filed: 12/25/24 21:41> General Exam Limitations: no limitations <Carlos Herndon - Last Filed: 12/25/24 21:41> - General Exam Comments Initial Comments: PHYSICAL EXAM: General Impression: Alert and oriented x3, not in acute distress HEENT: Normocephalic atraumatic, extra-ocular movements intact, pupils equal and reactive to light bilaterally, mucous membranes moist. Cardiovascular: Heart regular rate and rhythm Chest: Able to complete full sentences, no retractions, no tachypnea Abdomen: abdomen soft, non-tender, non-distended, no organomegaly Musculoskeletal: Pulses present and equal in all extremities, no peripheral edema Motor: no focal deficits noted Neurological: CN II-XII grossly intact, no focal motor or sensory deficits noted Skin: Intact with no visualized rashes Psych: Tangential speech, bizarre behavior (Carlos Herndon) Course Vital Signs 12/25/24 12/26/24 19:14 00:03 Temperature 97.8 F 97.7 F Pulse Rate 87 73 Respiratory 16 15 Rate Blood Pressure 132/85 134/87 O2 Sat by Pulse 96 95 Oximetry Medical Decision Making <Carlos Herndon - Last Filed: 12/25/24 21:41> <Shadi Carmona - Last Filed: 12/26/24 00:08> - Medical Decision Making Was pt. sent in by a medical professional or institution (, PA, BUCKLE SEWER MACHINE, urgent care, hospital, or prison...) When possible be specific @ -[No] Did you speak to anyone other than the patient for history (EMS, parent, family, police, friend...)? What history was obtained from this source @ -[No] Did you review nursing and triage notes (agree or disagree)? Why? @ -[I reviewed and agree with nursing and triage notes] Were old charts reviewed (outside hosp., previous admission, EMS record, old EKG, old radiological studies, urgent care reports/EKG's, prison records)? Report findings @ -[No old charts were reviewed] Differential Diagnosis (chest pain, altered mental status, abdominal pain women, abdominal pain men, vaginal bleeding, musculoskeletal, weakness, fever, dyspnea, syncope, headache, dizziness, GI bleed, back pain, seizure, CVA, palpatations, mental health)? @ -Differential Mental Health: Depression, anxiety, bipolar, psychosis, schizophrenia, borderline personality, situational depression, adjustment disorder, behavioral disorder, brain tumor, malingering, substance abuse, encephalopathy, medication reaction, dementia, hypothyroidism, degenerative neurologic disorder, lupus.... This is not meant to be all-inclusive list EKG interpreted by me (3pts min.). @ -[None done] X-rays interpreted by me (1pt min.). @ -[None done] CT interpreted by me (1pt min.). @ -[None done] U/S interpreted by me (1pt. min.). @ -[None done] What testing was considered but not performed or refused? (CT, X-rays, U/S, labs)? Why? @ -[None] What meds were considered but not given or refused? Why? @ -[None] Was smoking cessation discussed for >3mins.? @ -[No] Were there social determinants of health that impacted care today? How? (Homelessness, low income, unemployed, alcoholism, drug addiction, transportation, low edu. Level, literacy, decrease access to med. care, residential, rehab)? @ -[No] Was there de-escalation of care discussed even if they declined (Discuss DNR or withdrawal of care, Hospice)? DNR status @ -[No] What co-morbidities impacted this encounter? (DM, HTN, Smoking, COPD, CAD, Cancer, CVA, ARF, Chemo, Hep., AIDS, mental health diagnosis, sleep apnea, morbid obesity)? @ -[None] Was patient admitted / discharged? Hospital course, mention meds given and route, prescriptions, significant lab abnormalities, going to OR and other pertinent info. @ -49-year-old male presents emergency department for psychiatric evaluation. Patient extensive history of illicit drug use. States he is here for depression and paranoia. Vital signs stable. Physical examination is benign. Patient medically cleared for EPS evaluation. Did you discuss the management of the patient with other professionals (professionals i.e. , PA, BUCKLE SEWER MACHINE, lab, RT, psych nurse, social studies teacher, clamshell engineer, teacher, community reinvestment act officer, spring encaser)? Give summary @ -[No] Was critical care preformed (if so, how long)? @ -[No] Undiagnosed new problem with uncertain prognosis? @ -[No] Drug Therapy requiring intensive monitoring for toxicity (Heparin, Nitro, Insulin, Cardizem)? @ -[No] Were any procedures done? @ -[No] Diagnosis/symptom? Acute, or Chronic, or Acute on Chronic? Uncomplicated (without systemic symptoms) or Complicated (systemic symptoms)? @ -[default] Side effects of treatment? @ -[No] Exacerbation, Progression, or Severe Exacerbation? @ -[No] Poses a threat to life or bodily function? How? (Chest pain, [place], [place], pneumonia, PE, COPD, DKA, ARF, appy, cholecystitis, CVA, Diverticulitis, Homicidal, Suicidal, threat to staff... and all critical care pts) @ -[No] (Carlos Herndon) EPS evaluated patient determined that he does not meet inpatient psychiatric criteria. Patient will be discharged home with a safety plan. Diagnosis/symptom? @ -Encounter for psychiatric evaluation, polysubstance abuse Acute, or Chronic, or Acute on Chronic? @ -Acute Uncomplicated (without systemic symptoms) or Complicated (systemic symptoms)? @ -Uncomplicated Side effects of treatment? @ -None Exacerbation, Progression, or Severe Exacerbation] @ -No Poses a threat to life or bodily function? @ -Unlikely at this time (Shadi Carmona) Disposition <Carlos Herndon - Last Filed: 12/25/24 21:41> Is patient prescribed a controlled substance at d/c from ED?: No Time of Disposition: 22:41 <Shadi Carmona - Last Filed: 12/26/24 00:08> Clinical Impression: Encounter for psychiatric assessment, Polysubstance abuse Disposition: HOME SELF-CARE Condition: Good Instructions (If sedation given, give patient instructions): Polysubstance Abuse (ED) Additional Instructions: follow safety plan. Referrals: None,Stated [Primary Care Provider] - 1-2 days
[2024-12-26 00:27] VITALS: BP 131/92; PULSE 86; RESP 18; TEMP 97.9
== END 2024-12-26 00:32 | disposition home or self-care (01) ==
LOC: EC 19:05
DX: Z00.8 Encounter for other general examination (principal); F19.10 Other psychoactive substance abuse, uncomplicated; F17.290 Nicotine dependence, other tobacco product, uncomplicated; Z88.8 Allergy status to other drugs, medicaments and biological substances
CPT/HCPCS: 82075; 99284

== ENCOUNTER 2025-02-03 18:37 | Emergency (ER) | payer MEDICARE, OTHER ==
[2025-02-03 18:47] VITALS: RESP 18; TEMP 98.4
[2025-02-03 19:31] LABS: Basophils # (A) 0.09 10*3/uL (0.00-0.10); Eosinophils # (A) 0.19 10*3/uL (0.04-0.35); HGB 13.7 g/dL (13.0-17.0); Lymphocytes # (A) 1.66 10*3/uL (0.90-5.00); Lymphocytes % (A) 17.7 %; MCH 29.4 pg (27.0-32.0); MCHC 33.4 g/dL (32.0-37.0); Mean Platelet Volume 8.6 fL (9.5-12.2); Monocytes # (A) 0.75 10*3/uL (0.20-1.00); Neutrophils # (A) 6.67 10*3/uL (1.80-7.70); Neutrophils % (A) 71.1 %; Platelet Count 228 10*3/uL (140-440); RBC 4.66 10*6/uL (4.40-5.60); RDW 13.8 % (11.5-14.5); WBC 9.38 10*3/uL (4.50-10.00)
[2025-02-03 19:41] LABS: Prothrombin Time 10.8 sec (10.0-12.5)
[2025-02-03 19:42] LABS: ALT 84 U/L (4-49); AST 61 U/L (17-59); African American GFR (CKD) >90 (>60 ml/min/1.73 sqM); Alkaline Phosphatase 65 U/L (38-126); Anion Gap 9 mmol/L; Blood Urea Nitrogen 21 mg/dL (9-20); Calcium 9.6 mg/dL (8.4-10.2); Carbon Dioxide 30 mmol/L (22-30); Chloride 98 mmol/L (98-107); Glucose 65 mg/dL (74-99); Lipase 536 U/L (23-300); Magnesium 2.2 mg/dL (1.6-2.3); Non-African American GFR(CKD) >90 (>60 ml/min/1.73 sqM); Sodium 137 mmol/L (137-145); Total Bilirubin 0.5 mg/dL (0.2-1.3); Total Protein 6.6 g/dL (6.3-8.2)
--- NOTE | 2025-02-03 19:48 | XR ---
EXAMINATION TYPE: XR chest 2V DATE OF EXAM: 02/03/2025 7:43 PM COMPARISON: 11/21/2024 CLINICAL INDICATION: Male, 49 years old with history of Chest Pain, TECHNIQUE: XR chest 2V view(s) obtained. FINDINGS: The heart size is normal. The pulmonary vasculature is normal. The lungs are clear. IMPRESSION: 1. No acute pulmonary process. [facility], , 02/03/2025 7:45 PM
--- NOTE | 2025-02-03 20:36 | ED ---
Chest Pain HPI - General Chief Complaint: Chest Pain Stated Complaint: chest pain Source: patient, EMS Mode of arrival: EMS - History of Present Illness Initial Comments: 49-year-old male with history of diabetes, hypertension, seizure disorder who presents emergency department for chest pain. He reports that the pain has been going on for the past few months. States that the pain is sharp in nature and only lasts a couple of seconds before it resolves. He does not take anything for his symptoms. No history of cardiac disease. Denies associated nausea or vomiting. No shortness of breath. No fevers chills or cough. No numbness, tingling or weakness in his extremities. No other alleviating, precipitating or modifying factors - Related Data Home Medications Medication Instructions Recorded Confirmed Aripiprazole Lauroxil [Aristada] 882 mg IM Q28D 12/25/24 02/15/25 Allergies Allergy/AdvReac Type Severity Reaction Status Date / Time cat dander Allergy Itching Verified 02/15/25 09:17 oxcarbazepine AdvReac seizures Verified 02/15/25 09:17 [From Trileptal] paliperidone [From Invega] AdvReac delusional Verified 02/15/25 09:17 risperidone [From Risperdal] AdvReac seizures Verified 02/15/25 09:17 Review of Systems ROS Statement: Those systems with pertinent positive or pertinent negative responses have been documented in the HPI. ROS Other: All systems not noted in ROS Statement are negative. Past Medical History Past Medical History: Diabetes Mellitus, GERD/Reflux, Hypertension, Liver Disease, Musculoskeletal Disorder, Seizure Disorder Additional Past Medical History / Comment(s): scoliosis, herpes, hiatal hernia, migraines, Hepatitis C History of Any Multi-Drug Resistant Organisms: None Reported Past Surgical History: No Surgical Hx Reported Additional Past Surgical History / Comment(s): EGD Past Anesthesia/Blood Transfusion Reactions: No Reported Reaction Past Psychological History: Anxiety, Depression, Schizoaffective Disorder Smoking Status: Current every day smoker, Vaper Past Alcohol Use History: Rare Past Drug Use History: Marijuana - Past Family History Mother History Unknown: Yes Family Medical History: No Reported History Additional Family Medical History / Comment(s): from suicide Father History Unknown: Yes Family Medical History: No Reported History Additional Family Medical History / Comment(s): Reports that he is currently in the stages of dying- but wont clarify further. Inititally the patient stated his father was . General Exam General appearance: alert, in no apparent distress Head exam: Present: atraumatic, normocephalic, normal inspection Eye exam: Present: normal appearance, PERRL, EOMI. Absent: scleral icterus, conjunctival injection, periorbital swelling ENT exam: Present: normal exam, mucous membranes moist Neck exam: Present: normal inspection. Absent: tenderness, meningismus, lymphadenopathy Respiratory exam: Present: normal lung sounds bilaterally. Absent: respiratory distress, wheezes, rales, rhonchi, stridor Cardiovascular Exam: Present: regular rate, normal rhythm, normal heart sounds. Absent: systolic murmur, diastolic murmur, rubs, gallop, clicks GI/Abdominal exam: Present: soft, normal bowel sounds. Absent: distended, tenderness, guarding, rebound, rigid Extremities exam: Present: normal inspection, full ROM, normal capillary refill. Absent: tenderness, pedal edema, joint swelling, calf tenderness Back exam: Present: normal inspection Neurological exam: Present: alert, oriented X3, CN II-XII intact Psychiatric exam: Present: normal affect, normal mood Skin exam: Present: warm, dry, intact, normal color. Absent: rash Course Vital Signs 02/03/25 02/03/25 18:40 21:14 Temperature 98.4 F 98.4 F Pulse Rate 65 74 Respiratory 18 18 Rate Blood Pressure 122/86 124/68 O2 Sat by Pulse 97 100 Oximetry Chest Pain MDM - MDM Was pt. sent in by a medical professional or institution (, PA, [facility], urgent care, hospital, or senior living...) When possible be specific @ -No Did you speak to anyone other than the patient for history (EMS, parent, family, police, friend...)? What history was obtained from this source @ -Spoke with EMS for history Did you review nursing and triage notes (agree or disagree)? Why? @ -I reviewed and agree with nursing and triage notes Were old charts reviewed (outside hosp., previous admission, EMS record, old EKG, old radiological studies, urgent care reports/EKG's, senior living records)? Report findings @ -No old charts were reviewed Differential Diagnosis (chest pain, altered mental status, abdominal pain women, abdominal pain men, vaginal bleeding, weakness, fever, dyspnea, syncope, headache, dizziness, GI bleed, back pain, seizure, CVA, palpatations, mental health, musculoskeletal)? @ -Differential Chest Pain: Stable Angina, Unstable Angina, STEMI, NSTEMI Aortic Dissection, Pneumothorax, Musculoskeletal, Esophageal Spasm GERD, Cholecystitis, Pancreatitis, Zoster, this is not meant to be an all-inclusive list. EKG interpreted by me (3pts min.). @ -Yes and demonstrates sinus rhythm with a rate of 66. NC interval 148. QRS 97. QTc of 366. No acute ST segment elevations or depressions X-rays interpreted by me (1pt min.). @ -[Yes which demonstrates no acute process CT interpreted by me (1pt min.). @ -None done U/S interpreted by me (1pt. min.). @ -None done What testing was considered but not performed or refused? (CT, X-rays, U/S, labs)? Why? @ -None What meds were considered but not given or refused? Why? @ -None Did you discuss the management of the patient with other professionals (professionals i.e. , PA, [facility], lab, RT, psych nurse, social science analyst, environmental lawyer, teacher, contracting officer, showcase trimmer)? Give summary @ -No Was smoking cessation discussed for >3mins.? @ -No Was critical care preformed (if so, how long)? @ -No Were there social determinants of health that impacted care today? How? (Homelessness, low income, unemployed, alcoholism, drug addiction, transportation, low edu. Level, literacy, decrease access to med. care, assisted, rehab)? @ -No Was there de-escalation of care discussed even if they declined (Discuss DNR or withdrawal of care, Hospice)? DNR status @ -No What co-morbidities impacted this encounter? (DM, HTN, Smoking, COPD, CAD, Cancer, CVA, ARF, Chemo, Hep., AIDS, mental health diagnosis, sleep apnea, morbid obesity)? @ -Polysubstance abuse Was patient admitted / discharged? Hospital course, mention meds given and route, prescriptions, significant lab abnormalities, going to OR and other p ertinent info. @ -Upon arrival patient seen and evaluated in hallway 11. Thorough history and physical exam was performed. Twelve-lead EKG was obtained. Laboratory studies are conducted. Chest x-ray was performed. Results are discussed with patient. Patient is comfortable at this time and wants to go home. He is instructed follow-up with his doctor in 2 to 4 days and return for any new or worsening symptoms Undiagnosed new problem with uncertain prognosis? @ -No Drug Therapy requiring intensive monitoring for toxicity (Heparin, Nitro, Insulin, Cardizem)? @ -No Were any procedures done? @ -No Diagnosis/symptom? @ -Acute chest pain Acute, or Chronic, or Acute on Chronic? @ -Acute Uncomplicated (without systemic symptoms) or Complicated (systemic symptoms)? @ -Complicated Side effects of treatment? @ -No Exacerbation, Progression, or Severe Exacerbation? @ -No Poses a threat to life or bodily function? How? (Chest pain, [place], [place], pneumonia, PE, COPD, DKA, ARF, appy, cholecystitis, CVA, Diverticulitis, Homicidal, Suicidal, threat to staff... and all critical care pts) @ -No Disposition Clinical Impression: Chest pain Disposition: HOME SELF-CARE Condition: Stable Instructions (If sedation given, give patient instructions): Chest Pain (ED) Additional Instructions: I recommend that you follow-up with your doctor in 2 to 4 days and return for any new or worsening symptoms Is patient prescribed a controlled substance at d/c from ED?: No Referrals: Duke Archibald MD [Primary Care Provider] - 1-2 days Time of Disposition: 20:36
[2025-02-03 21:16] VITALS: BP 124/68; PULSE 74
== END 2025-02-03 21:15 | disposition home or self-care (01) ==
LOC: EC 18:37
DX: R07.9 Chest pain, unspecified (principal); E11.9 Type 2 diabetes mellitus without complications; I10 Essential (primary) hypertension; G40.909 Epilepsy, unspecified, not intractable, without status epilepticus; F17.290 Nicotine dependence, other tobacco product, uncomplicated; Z88.8 Allergy status to other drugs, medicaments and biological substances
CPT/HCPCS: 36415; 71046; 80053; 83690; 83735; 84484; 85025; 85610; 85730; 93005; 99285

== ENCOUNTER 2025-02-07 16:16 | Observation (INO) | payer MEDICARE, OTHER ==
--- NOTE | 2025-02-07 16:35 | ED ---
Abdominal Pain HPI - General Chief Complaint: Abdominal Pain Stated Complaint: Abd pain Time Seen by Provider: 02/07/25 16:21 Source: patient, RN notes reviewed, old records reviewed Mode of arrival: ambulatory Limitations: no limitations - History of Present Illness Initial Comments: This is a 49-year-old male to the ER for evaluation mildly poor historian secondary to not wanting to participate in history of present illness but coming in with abdominal pain patient is unsure of how long abdominal pains been going on he thinks it is reflux type pain gastritis. Patient has no history of abdominal surgery history MD Complaint: abdominal pain -: days(s) Location: periumbilical Radiation: epigastric Migration to: periumbilical, suprapubic Severity: severe Severity scale (1-10): 8 Quality: stabbing Consistency: constant Improves With: nothing Worsens With: nothing Associated Symptoms: nausea, vomiting Treatments Prior to Arrival: other (0) - Related Data Home Medications Medication Instructions Recorded Confirmed Sertraline [Zoloft] 50 mg PO HS 11/19/24 12/25/24 Aripiprazole Lauroxil [Aristada] 882 mg IM Q28D 12/25/24 12/25/24 cloZAPine [Clozaril] 50 mg PO HS 12/25/24 12/25/24 Previous Rx's Medication Instructions Recorded Famotidine [Pepcid] 20 mg PO BID #28 tablet 12/21/24 Pantoprazole [Protonix] 40 mg PO DAILY #14 tab 12/21/24 Allergies Allergy/AdvReac Type Severity Reaction Status Date / Time cat dander Allergy Itching Verified 02/07/25 16:20 oxcarbazepine AdvReac seizures Verified 02/07/25 16:20 [From Trileptal] paliperidone [From Invega] AdvReac delusional Verified 02/07/25 16:20 risperidone [From Risperdal] AdvReac seizures Verified 02/07/25 16:20 Review of Systems ROS Statement: Those systems with pertinent positive or pertinent negative responses have been documented in the HPI. ROS Other: All systems not noted in ROS Statement are negative. Past Medical History Past Medical History: GERD/Reflux, Musculoskeletal Disorder, Seizure Disorder Additional Past Medical History / Comment(s): scoliosis, herpes, hiatal hernia, migraines, Hepatitis C History of Any Multi-Drug Resistant Organisms: None Reported Past Surgical History: No Surgical Hx Reported Additional Past Surgical History / Comment(s): EGD Past Anesthesia/Blood Transfusion Reactions: No Reported Reaction Past Psychological History: Anxiety, Bipolar, Depression, Schizoaffective Disorder Past Drug Use History: Cocaine, Heroin, IV Drug Use, Marijuana, Methamphetamine, Opiates, Prescription Drug Abuse - Past Family History Mother History Unknown: Yes Family Medical History: No Reported History Additional Family Medical History / Comment(s): from suicide Father History Unknown: Yes Family Medical History: No Reported History Additional Family Medical History / Comment(s): Reports that he is currently in the stages of dying- but wont clarify further. Inititally the patient stated his father was . General Exam Limitations: no limitations General appearance: alert, in no apparent distress Head exam: Present: atraumatic, normocephalic, normal inspection Eye exam: Present: normal appearance, PERRL, EOMI. Absent: scleral icterus, conjunctival injection, periorbital swelling ENT exam: Present: normal exam, mucous membranes moist Neck exam: Present: normal inspection. Absent: tenderness, meningismus, lymphadenopathy Respiratory exam: Present: normal lung sounds bilaterally. Absent: respiratory distress, wheezes, rales, rhonchi, stridor Cardiovascular Exam: Present: regular rate, normal rhythm, normal heart sounds. Absent: systolic murmur, diastolic murmur, rubs, gallop, clicks GI/Abdominal exam: Present: soft, normal bowel sounds. Absent: distended, tenderness, guarding, rebound, rigid Extremities exam: Present: normal inspection, full ROM, normal capillary refill. Absent: tenderness, pedal edema, joint swelling, calf tenderness Back exam: Present: normal inspection Neurological exam: Present: alert, oriented X3, CN II-XII intact Psychiatric exam: Present: normal affect, normal mood Skin exam: Present: warm, dry, intact, normal color. Absent: rash Course Vital Signs 02/07/25 02/07/25 16:18 18:07 Temperature 98.1 F Pulse Rate 65 71 Respiratory 17 18 Rate Blood Pressure 153/101 165/100 O2 Sat by Pulse 99 99 Oximetry - Reevaluation(s) Reevaluation #1: 02/07/25 16:59 Medical records reviewed Reevaluation #2: 02/07/25 18:40 Patient's symptoms continue to improve throughout ER stay patient is still vomiting unable to tolerate oral intake Reevaluation #3: 02/07/25 18:41 Patient informed of results questions answered Reevaluation #4: Was pt. sent in by a medical professional or institution ([facility] Regan, [employer], urgent care, hospital, or fdc...) When possible be specific @ -no Did you speak to anyone other than the patient for history (EMS, parent, family, police, friend...)? What history was obtained from this source @ -no Did you review nursing and triage notes (agree or disagree)? Why? @ -agree Are old charts reviewed (outside hosp., previous admission, EMS record, old EKG, old radiological studies, urgent care reports/EKG's, fdc records)? Report findings @ -yes Differential Diagnosis (chest pain, altered mental status, abdominal pain women, abdominal pain men, vaginal bleeding, weakness, fever, dyspnea, syncope, headache, dizziness, GI bleed, back pain, seizure, CVA, palpatations, mental health, musculoskeletal)? @ -prior EKG interpreted by me (3pts min.). @ -yes X-rays interpreted by me (1pt min.). @ -yes negative for acute disease CT interpreted by me (1pt min.). @ -no U/S interpreted by me (1pt. min.). @ -no What testing was considered but not performed or refused? (CT, X-rays, U/S, labs)? Why? @ -none What meds were considered but not given or refused? Why? @ -none Did you discuss the management of the patient with other professionals (professionals i.e. LEO Regan, [employer], lab, RT, psych nurse, social welfare administrator, tapper balance wheel screw hole, teacher, civil preparedness training officer, wrapper caser)? Give summary @ -no Was smoking cessation discussed for >3mins.? @ -no Was critical care preformed (if so, how long)? @ -no Were there social determinants of health that impacted care today? How? (Homelessness, low income, unemployed, alcoholism, drug addiction, transportation, low edu. Level, literacy, decrease access to med. care, shelter, rehab)? @ -none Was there de-escalation of care discussed even if they declined (Discuss DNR or withdrawal of care, Hospice)? DNR status @ -no What co-morbidities impacted this encounter? (DM, HTN, Smoking, COPD, CAD, Cancer, CVA, ARF, Chemo, Hep., AIDS, mental health diagnosis, sleep apnea, morbid obesity)? @ -none Was patient admitted / discharged? Hospital course, mention meds given and route, prescriptions, significant lab abnormalities, going to OR and other pert inent info. @ - Undiagnosed new problem with uncertain prognosis? @ -no Drug Therapy requiring intensive monitoring for toxicity (Heparin, Nitro, Insulin, Cardizem)? @ -no Were any procedures done? @ -no Diagnosis/symptom? @ - Acute, or Chronic, or Acute on Chronic? @ -Acute Uncomplicated (without systemic symptoms) or Complicated (systemic symptoms)? @ -Complicated Side effects of treatment? @ -no Exacerbation, Progression, or Severe Exacerbation? @ -exacerbation Poses a threat to life or bodily function? How? (Chest pain, [place], [place], pneumonia, PE, COPD, DKA, ARF, appy, cholecystitis, CVA, Diverticulitis, Homicidal, Suicidal, threat to staff... and all critical care pts) @ -yes Reevaluation #5: Differential Abdominal Pain Men: Appendicitis, cholecystitis, diverticulosis, ischemic bowel, pancreatitis, hepatitis, UTI, gastroenteritis, AAA, incarcerated hernia, bowel obstruction, constipation, inflammatory bowel, hepatitis, peptic ulcer disease, splenic infarction, perforated viscus, testicular torsion, this is not meant to be an all-inclusive list - Consultations Consultation #1: Spoke with Dr. Archibald who agrees to admit this patient Medical Decision Making - Medical Decision Making 49 male to be admitted for significant acute onset sudden onset of abdominal pain with nausea vomiting acute pancreatitis, CT scan otherwise negative patient can be admitted for IV hydration n.p.o. - Lab Data Result diagrams: 02/07/25 17:10 02/07/25 17:10 Lab Results 02/07/25 02/07/25 02/07/25 Range/Units 17:10 17:10 17:10 WBC 14.23 H (4.50-10.00) 10*3/uL RBC 4.87 (4.40-5.60) 10*6/uL Hgb 14.6 (13.0-17.0) g/dL Hct 42.1 (39.6-50.0) % MCV 86.4 (80.0-97.0) fL MCH 30.0 (27.0-32.0) pg MCHC 34.7 (32.0-37.0) g/dL Plt Count 229 (140-440) 10*3/uL MPV 8.8 L (9.5-12.2) fL Immature Gran % (Auto) 0.4 % Neutrophils % 82.6 % Lymphocytes % 9.8 % Monocytes % 6.9 % Eosinophils % 0.1 % Basophils % 0.2 % Immature Gran # 0.05 H (0.00-0.04) 10*3/uL Neutrophils # 11.76 H (1.80-7.70) 10*3/uL Lymphocytes # 1.39 (0.90-5.00) 10*3/uL Monocytes # 0.98 (0.20-1.00) 10*3/uL Eosinophils # 0.02 L (0.04-0.35) 10*3/uL Basophils # 0.03 (0.00-0.10) 10*3/uL Sodium 135 L (137-145) mmol/L Potassium 3.5 (3.5-5.1) mmol/L Chloride 104 (98-107) mmol/L Carbon Dioxide 24 (22-30) mmol/L Anion Gap 7 mmol/L BUN 14 (9-20) mg/dL Creatinine 0.53 L (0.66-1.25) mg/dL Est GFR (CKD-EPI)AfAm >90 (>60 ml/min/1.73 sqM) Est GFR (CKD-EPI)NonAf >90 (>60 ml/min/1.73 sqM) Glucose 111 H (74-99) mg/dL Plasma Lactic Acid Lonny 1.0 (0.7-2.0) mmol/L Calcium 9.2 (8.4-10.2) mg/dL Total Bilirubin 0.6 (0.2-1.3) mg/dL AST 54 (17-59) U/L ALT 84 H (4-49) U/L Alkaline Phosphatase 58 (38-126) U/L Troponin I (0.000-0.034) ng/mL Total Protein 6.4 (6.3-8.2) g/dL Albumin 3.7 (3.5-5.0) g/dL Amylase 179 H (30-110) U/L Lipase 1046 H (23-300) U/L Serum Alcohol <10 mg/dL 02/07/25 Range/Units 17:10 WBC (4.50-10.00) 10*3/uL RBC (4.40-5.60) 10*6/uL Hgb (13.0-17.0) g/dL Hct (39.6-50.0) % MCV (80.0-97.0) fL MCH (27.0-32.0) pg MCHC (32.0-37.0) g/dL Plt Count (140-440) 10*3/uL MPV (9.5-12.2) fL Immature Gran % (Auto) % Neutrophils % % Lymphocytes % % Monocytes % % Eosinophils % % Basophils % % Immature Gran # (0.00-0.04) 10*3/uL Neutrophils # (1.80-7.70) 10*3/uL Lymphocytes # (0.90-5.00) 10*3/uL Monocytes # (0.20-1.00) 10*3/uL Eosinophils # (0.04-0.35) 10*3/uL Basophils # (0.00-0.10) 10*3/uL Sodium (137-145) mmol/L Potassium (3.5-5.1) mmol/L Chloride (98-107) mmol/L Carbon Dioxide (22-30) mmol/L Anion Gap mmol/L BUN (9-20) mg/dL Creatinine (0.66-1.25) mg/dL Est GFR (CKD-EPI)AfAm (>60 ml/min/1.73 sqM) Est GFR (CKD-EPI)NonAf (>60 ml/min/1.73 sqM) Glucose (74-99) mg/dL Plasma Lactic Acid Lonny (0.7-2.0) mmol/L Calcium (8.4-10.2) mg/dL Total Bilirubin (0.2-1.3) mg/dL AST (17-59) U/L ALT (4-49) U/L Alkaline Phosphatase (38-126) U/L Troponin I <0.012 (0.000-0.034) ng/mL Total Protein (6.3-8.2) g/dL Albumin (3.5-5.0) g/dL Amylase (30-110) U/L Lipase (23-300) U/L Serum Alcohol mg/dL - Radiology Data Radiology results: report reviewed (CT abdomen pelvis negative for acute disease), image reviewed Disposition Clinical Impression: Abdominal pain, Acute pancreatitis Disposition: ADMITTED IP TO THIS [facility] Condition: Fair Is patient prescribed a controlled substance at d/c from ED?: No Referrals: Duke Archibald MD [Primary Care Provider] - 1-2 days Time of Disposition: 18:30
[2025-02-07] MEDS: ONDANSETRON 4 MG/2 ML VIAL IVP STA (17:02)
[2025-02-07] MEDS: PANTOPRAZOLE 40 MG/10 ML VIAL IVP STA (17:03)
[2025-02-07] MEDS: SODIUM CHLORIDE 0.9% 1,000 ML IV SCH ×2 (17:03→20:39)
[2025-02-07 17:21] LABS: Basophils # (A) 0.03 10*3/uL (0.00-0.10); Basophils % (A) 0.2 %; Eosinophils # (A) 0.02 10*3/uL (0.04-0.35); Eosinophils % (A) 0.1 %; HCT 42.1 % (39.6-50.0); HGB 14.6 g/dL (13.0-17.0); Lymphocytes # (A) 1.39 10*3/uL (0.90-5.00); Lymphocytes % (A) 9.8 %; MCHC 34.7 g/dL (32.0-37.0); MCV 86.4 fL (80.0-97.0); Mean Platelet Volume 8.8 fL (9.5-12.2); Monocytes # (A) 0.98 10*3/uL (0.20-1.00); Monocytes % (A) 6.9 %; Neutrophils # (A) 11.76 10*3/uL (1.80-7.70); Neutrophils % (A) 82.6 %; Platelet Count 229 10*3/uL (140-440); RBC 4.87 10*6/uL (4.40-5.60); RDW 13.6 % (11.5-14.5); WBC 14.23 10*3/uL (4.50-10.00)
[2025-02-07 17:35] LABS: ALT 84 U/L (4-49); AST 54 U/L (17-59); African American GFR (CKD) >90 (>60 ml/min/1.73 sqM); Albumin 3.7 g/dL (3.5-5.0); Alcohol <10 mg/dL; Alkaline Phosphatase 58 U/L (38-126); Amylase 179 U/L (30-110); Anion Gap 7 mmol/L; Blood Urea Nitrogen 14 mg/dL (9-20); Calcium 9.2 mg/dL (8.4-10.2); Carbon Dioxide 24 mmol/L (22-30); Chloride 104 mmol/L (98-107); Glucose 111 mg/dL (74-99); Lipase 1046 U/L (23-300); Non-African American GFR(CKD) >90 (>60 ml/min/1.73 sqM); Potassium 3.5 mmol/L (3.5-5.1); Sodium 135 mmol/L (137-145); Total Bilirubin 0.6 mg/dL (0.2-1.3); Total Protein 6.4 g/dL (6.3-8.2)
[2025-02-07] MEDS ORDERED: MORPHINE SULFATE 4 MG/ML SYRINGE IVP PRN (17:39)
[2025-02-07] MEDS: MORPHINE SULFATE 4 MG/ML SYRINGE IVP STA (18:04)
--- NOTE | 2025-02-07 18:23 | CT ---
EXAMINATION TYPE: CT abdomen pelvis w con DATE OF EXAM: 02/07/2025 6:03 PM COMPARISON: 06/08/2024 CLINICAL INDICATION: Male, 49 years old with history of pain, abdominal pain TECHNIQUE: Axial images were obtained from above the diaphragm to the pubic rami in the axial plane a t 5 mm thick sections. Reconstructed images are reviewed on the computer in the coronal plane. CONTRAST: 100 ml mL of Isovue 300. Study performed without Oral Contrast DLP: 853 mGycm, Automated exposure control for dose reduction was used. FINDINGS: Limited CT sections are obtained the lung bases. The lung bases are clear. There is thickening of t he distal esophagus. CT ABDOMEN: Liver: Normal Spleen: Normal Pancreas: Normal Adrenal glands: The adrenal glands are normal. Gallbladder: Normal Kidneys: No masses are evident. No hydronephrosis is present. No cysts are present. Delayed images were obtained through the kidneys, which remain unremarkable. Aorta: Vascular calcification is within the aorta. Inferior vena cava: Normal. CT PELVIS: Loops of bowel within the abdomen and pelvis are normal. There are loops of bowel which are incom pletely distended or lack oral contrast limiting their evaluation. Appendix: Normal as visualized. Urinary bladder: Normal. Genitourinary structures: Uterus is normal. Adnexa are unremarkable. Osseous structures: No suspicious lytic or sclerotic lesions. IMPRESSION: 1. Diffuse thickening of the distal esophagus. Additional workup is recommended. 2. No suspicious acute changes to account for abdomen. Follow-up can be performed as clinically indic ated. [facility], , 02/07/2025 6:21 PM
[2025-02-07] MEDS ORDERED: NALOXONE 0.4 MG/ML 1 ML VIAL IV PRN (18:39)
[2025-02-07] MEDS ORDERED: ONDANSETRON 4 MG/2 ML VIAL IVP PRN (18:39)
[2025-02-07] MEDS: SODIUM CHLORIDE 0.9% 1,000 ML IV ONE (18:47)
[2025-02-07 18:49] LABS: Appearance,Urine Clear (Clear); Bilirubin,Urine Negative (Negative); Blood,Urine Negative (Negative); Color,Urine Colorless; Glucose,Urine (UA) Negative (Negative); Ketones,Urine Negative (Negative); Leukocyte Esterase,Urine Negative (Negative); Nitrite,Urine Negative (Negative); Protein,Urine Negative (Negative); Specific Gravity,Urine 1.022 (1.001-1.035); Urobilinogen,Urine <2.0 mg/dL (<2.0)
[2025-02-07] MEDS ORDERED: HYDROmorphone 1 MG/ML 1 ML SYRINGE IVP PRN (21:11)
[2025-02-08] MEDS: PANTOPRAZOLE 40 MG/10 ML VIAL IV SCH (08:27)
[2025-02-08 10:11] LABS: Basophils # (A) 0.06 X 10*3/uL (0.00-0.10); Basophils % (A) 0.4 %; Eosinophils # (A) 0.07 X 10*3/uL (0.04-0.35); Eosinophils % (A) 0.5 %; HCT 43.9 % (39.6-50.0); Lymphocytes % (A) 12.3 %; MCH 28.9 pg (27.0-32.0); MCHC 31.9 g/dL (32.0-37.0); MCV 90.5 FL (80.0-97.0); Mean Platelet Volume 9.1 FL (9.5-12.2); Monocytes # (A) 0.94 X 10*3/uL (0.20-1.00); Monocytes % (A) 6.4 %; NRBC Per 100 WBC 0 X 10*3/uL (0.00-0.01); Neutrophils # (A) 11.67 X 10*3/uL (1.80-7.70); Neutrophils % (A) 80.1 %; Platelet Count 233 X 10*3/uL (140-440); RBC 4.85 X 10*6/uL (4.40-5.60); WBC 14.58 X 10*3/uL (4.50-10.00)
[2025-02-08 10:25] LABS: BUN/Creat Ratio 9.29 Ratio (12.00-20.00); Blood Urea Nitrogen 6.5 mg/dL (9.0-27.0); Carbon Dioxide 19.9 mmol/L (21.6-31.8); Chloride 106 mmol/L (96-109); Glucose 92 mg/dL (70-110); Lipase 105 U/L (14-60); Magnesium 1.8 mg/dL (1.5-2.4); Sodium 136 mmol/L (135-145)
[2025-02-08 10:26] LABS: ALT 74 U/L (10-49); AST 43 U/L (14-35); Albumin 3.6 g/dL (3.8-4.9); Albumin/Globulin Ratio 1.64 Ratio (1.60-3.17); Alkaline Phosphatase 64 U/L (41-126); Calcium 8.4 mg/dL (8.7-10.3); Globulin 2.2 g/dL (1.6-3.3); Total Bilirubin 0.5 mg/dL (0.3-1.2); Total Protein 5.8 g/dL (6.2-8.2)
--- NOTE | 2025-02-08 22:03 | HP ---
HISTORY AND PHYSICAL CHIEF COMPLAINT: Epigastric pain. HISTORY OF PRESENT ILLNESS: This is another admission for this 49-year-old gentleman, who has had a history of pancreatitis. He states he has not had anything to drink in months. He presented to the emergency room with an elevated lipase at 1046 and a white count of 14,500. This was associated with nausea and vomiting. REVIEW OF SYSTEMS: Otherwise unremarkable. Past medical history, family history and personal and social histories are all otherwise unremarkable or noncontributory. PHYSICAL EXAMINATION: VITAL SIGNS: Normal. HEAD, EARS, EYES, NOSE, MOUTH AND THROAT: Normal. CHEST: Clear. CARDIAC: Normal. ABDOMEN: Soft and he is tender over the epigastrium. Bowel sounds are present. EXTREMITIES: Normal. IMPRESSION: Relapsing pancreatitis. PLAN: 1. Bedrest. 2. IV fluids. 3. Analgesics. 4. Antiemetics. MMLUIS FELIPEL / YMOI: [id number] /
--- NOTE | 2025-02-09 00:18 | PN ---
PROGRESS NOTE DATE OF SERVICE: 02/08/2025 CHIEF COMPLAINT: Abdominal pain. HISTORY OF PRESENT ILLNESS: This gentleman still is complaining of a lot of epigastric pain. He is not vomiting. PHYSICAL EXAMINATION: CHEST: Fairly clear. CARDIAC: Normal. ABDOMEN: Tender over the epigastrium. There is no pain in the back. IMPRESSION: Pancreatitis. PLAN: Continue with IV fluids and analgesics and follow him amylase and lipase, which have dropped dramatically. MMODL / IJN: [id number] /
[2025-02-09 07:56] VITALS: BP 148/88; PULSE 66; RESP 18; TEMP 97.6
--- NOTE | 2025-02-11 02:24 | DS ---
DISCHARGE SUMMARY CHIEF COMPLAINT: Abdominal pain and pancreatitis. HISTORY OF PRESENT ILLNESS AND PHYSICAL EXAMINATION: Details of this man's history and physical can be found in the initial workup. LABORATORY STUDIES: While he was in the hospital, he had laboratory studies, details of which can be found in the laboratory section of his chart. COURSE IN THE HOSPITAL: After admission, he was placed on bedrest, started intravenous fluids and analgesics. His lipase came down dramatically. His pain was gone and it was felt that he could go home on the and he will go home on his usual activity, diet, medication, and follow up in the office in several days. FINAL DIAGNOSIS: Chronic recurring pancreatitis. OPERATIONS: None. CONSULTATION: None. MMODL / IJN: [id number] /
[2025-03-02] MEDS ORDERED: ARIPIPRAZOLE LAUROXIL 882 MG/3.2 ML IM SCH (09:00)
== END 2025-02-09 09:03 | disposition left against medical advice (07) ==
LOC: EC 16:16 → INTOOBSV 18:39 → 4SSUR 18:39
PROVIDERS: ADMIT Family Medicine; ATTEND Family Medicine
DX: K86.1 Other chronic pancreatitis (principal); K21.9 Gastro-esophageal reflux disease without esophagitis; F25.9 Schizoaffective disorder, unspecified; F31.9 Bipolar disorder, unspecified; F41.9 Anxiety disorder, unspecified; Z79.899 Other long term (current) drug therapy; Z53.29 Procedure and treatment not carried out because of patient's decision for other reasons
CPT/HCPCS: 96376; 96374 ×2; 96375; 99285; 36415; 80053 ×2; 82150; 83605; 83690 ×2; 83735; 84100; 84484; 85025 ×2; 81003; 74177; G0378 ×3; G0480; J2270; J2405; Q9967; J2470 ×2; 80320

== ENCOUNTER 2025-02-14 20:17 | Observation (INO) | payer MEDICARE, OTHER ==
[2025-02-14 20:53] LABS: Basophils % (A) 1.1 %; Eosinophils # (A) 0.21 10*3/uL (0.04-0.35); Eosinophils % (A) 2.4 %; HCT 47.1 % (39.6-50.0); HGB 15.9 g/dL (13.0-17.0); Lymphocytes # (A) 1.92 10*3/uL (0.90-5.00); Lymphocytes % (A) 22.1 %; MCH 29.8 pg (27.0-32.0); MCHC 33.8 g/dL (32.0-37.0); MCV 88.2 fL (80.0-97.0); Mean Platelet Volume 8.8 fL (9.5-12.2); Monocytes # (A) 0.68 10*3/uL (0.20-1.00); Monocytes % (A) 7.8 %; Neutrophils # (A) 5.75 10*3/uL (1.80-7.70); Neutrophils % (A) 66.1 %; Platelet Count 259 10*3/uL (140-440); RBC 5.34 10*6/uL (4.40-5.60)
[2025-02-14 21:07] LABS: INR 0.9 (<1.2); Partial Thromboplastin Time 26.7 sec (22.0-30.0); Prothrombin Time 10.2 sec (10.0-12.5)
[2025-02-14] MEDS: SODIUM CHLORIDE 0.9% 1,000 ML IV STA (21:07)
[2025-02-14] MEDS: ASPIRIN 81 MG PO STA (21:07)
--- NOTE | 2025-02-14 21:18 | XR ---
EXAMINATION TYPE: XR chest 2V DATE OF EXAM: 02/14/2025 9:04 PM COMPARISON: Chest radiographs from 02/03/2025. CLINICAL INDICATION: Male, 49 years old with history of Chest Pain; [facility] TECHNIQUE: XR chest 2V Frontal and lateral views of the chest. FINDINGS: Lungs/Pleura: There is no evidence of pleural effusion, focal consolidation, or pneumothorax. Pulmonary vascularity: Unremarkable. Heart/mediastinum: Cardiomediastinal silhouette is unremarkable. Musculoskeletal: No acute osseous pathology. IMPRESSION: No acute cardiopulmonary disease/process. [facility], , 02/14/2025 9:16 PM
[2025-02-14 21:38] LABS: ALT 110 U/L (4-49); AST 86 U/L (17-59); African American GFR (CKD) >90 (>60 ml/min/1.73 sqM); Albumin 4.9 g/dL (3.5-5.0); Alkaline Phosphatase 64 U/L (38-126); Anion Gap 11 mmol/L; Blood Urea Nitrogen 24 mg/dL (9-20); Calcium 9.7 mg/dL (8.4-10.2); Carbon Dioxide 29 mmol/L (22-30); Chloride 98 mmol/L (98-107); Glucose 72 mg/dL (74-99); Lipase 512 U/L (23-300); Magnesium 2.5 mg/dL (1.6-2.3); Non-African American GFR(CKD) >90 (>60 ml/min/1.73 sqM); Sodium 138 mmol/L (137-145); Total Bilirubin 1.3 mg/dL (0.2-1.3); Total Protein 8.4 g/dL (6.3-8.2)
[2025-02-14 22:02] LABS: Potassium 6.4 mmol/L (3.5-5.1)
[2025-02-14] MEDS: LACTATED RINGERS 1,000 ML IV ONE ×2 (22:20→23:25)
[2025-02-14] MEDS: HYDROmorphone 1 MG/ML 1 ML SYRINGE IVP STA (23:14)
[2025-02-14] MEDS ORDERED: NALOXONE 0.4 MG/ML 1 ML VIAL IV PRN (23:15)
[2025-02-14] MEDS ORDERED: HYDROmorphone 1 MG/ML 1 ML SYRINGE IVP PRN (23:15)
[2025-02-14] MEDS ORDERED: ONDANSETRON 4 MG/2 ML VIAL IVP PRN (23:15)
[2025-02-14] MEDS ORDERED: KETOROLAC 15 MG/ML 1 ML VIAL IVP PRN (23:15)
--- NOTE | 2025-02-14 23:17 | ED ---
Chest Pain HPI - General Chief Complaint: Chest Pain Stated Complaint: chest pain, chills Time Seen by Provider: 02/14/25 20:24 Source: patient Mode of arrival: ambulatory Limitations: no limitations - History of Present Illness Initial Comments: 49-year-old male presenting with chief complaint of chest pain. Patient reports burning centralized chest pain. No nausea or vomiting. He does admit to chills. No difficulty breathing. There seems to be no alleviating or aggravating factors. No lower extremity swelling. No injury or trauma. Denies alcohol use. He does smoke about a pack per day. - Related Data Home Medications Medication Instructions Recorded Confirmed Aripiprazole Lauroxil [Aristada] 882 mg IM Q28D 12/25/24 02/15/25 Allergies Allergy/AdvReac Type Severity Reaction Status Date / Time cat dander Allergy Itching Verified 02/15/25 09:17 oxcarbazepine AdvReac seizures Verified 02/15/25 09:17 [From Trileptal] paliperidone [From Invega] AdvReac delusional Verified 02/15/25 09:17 risperidone [From Risperdal] AdvReac seizures Verified 02/15/25 09:17 Review of Systems ROS Statement: Those systems with pertinent positive or pertinent negative responses have been documented in the HPI. ROS Other: All systems not noted in ROS Statement are negative. Past Medical History Past Medical History: GERD/Reflux, Musculoskeletal Disorder, Seizure Disorder Additional Past Medical History / Comment(s): scoliosis, herpes, hiatal hernia, migraines, Hepatitis C History of Any Multi-Drug Resistant Organisms: None Reported Past Surgical History: No Surgical Hx Reported Additional Past Surgical History / Comment(s): EGD Past Anesthesia/Blood Transfusion Reactions: No Reported Reaction Past Psychological History: Anxiety, Bipolar, Depression, Schizoaffective Disorder Smoking Status: Current every day smoker Past Alcohol Use History: None Reported Past Drug Use History: Cocaine, Heroin, IV Drug Use, Marijuana, Methamphetamine, Opiates, Prescription Drug Abuse - Past Family History Mother History Unknown: Yes Family Medical History: No Reported History Additional Family Medical History / Comment(s): from suicide Father History Unknown: Yes Family Medical History: No Reported History Additional Family Medical History / Comment(s): Reports that he is currently in the stages of dying- but wont clarify further. Inititally the patient stated his father was . General Exam Limitations: no limitations General appearance: alert, in no apparent distress Head exam: Present: atraumatic, normocephalic, normal inspection Eye exam: Present: normal appearance, EOMI Neck exam: Present: normal inspection. Absent: meningismus Respiratory exam: Present: normal lung sounds bilaterally. Absent: respiratory distress, wheezes, rales, rhonchi, stridor Cardiovascular Exam: Present: regular rate, normal rhythm, normal heart sounds. Absent: systolic murmur, diastolic murmur, rubs, gallop, clicks GI/Abdominal exam: Present: soft. Absent: distended, tenderness, guarding, rebound, rigid Neurological exam: Present: alert, oriented X3 Psychiatric exam: Present: normal affect, normal mood Skin exam: Present: warm, dry, normal color Course Vital Signs 02/14/25 02/14/25 02/14/25 20:19 22:00 23:49 Temperature 98.0 F 97.8 F Pulse Rate 90 83 80 Respiratory 18 18 17 Rate Blood Pressure 118/81 130/84 125/78 O2 Sat by Pulse 100 91 L 93 L Oximetry Chest Pain MDM - [facility] 49-year-old male presenting with chief complaint of burning centralized chest pain. Initial potassium hemolyzed 6.4, repeat is 3.8. Lipase is 512, patient does have history of pancreatitis. He denies any alcohol use. Chest x-ray shows no acute process and EKG shows no acute ischemic changes. Pain is likely secondary to pancreatitis. After IV fluids and analgesia patient is still reporting a significant amount of pain. Will be admitted for observation. Patient is agreeable with this plan. I discussed this case with my attending Dr Liana Suárez Was pt. sent in by a medical professional or institution (, PA, SHUTTLE TRUCK DRIVER, urgent care, hospital, or prison...) When possible be specific @ -No Did you speak to anyone other than the patient for history (EMS, parent, family, police, friend...)? What history was obtained from this source @ -No Did you review nursing and triage notes (agree or disagree)? Why? @ -I reviewed and agree with nursing and triage notes Were old charts reviewed (outside hosp., previous admission, EMS record, old EKG, old radiological studies, urgent care reports/EKG's, prison records)? Report findings @ -No old charts were reviewed Differential Diagnosis (chest pain, altered mental status, abdominal pain women, abdominal pain men, vaginal bleeding, weakness, fever, dyspnea, syncope, headac he, dizziness, GI bleed, back pain, seizure, CVA, palpatations, mental health, musculoskeletal)? @ -[facility] Differential Abdominal Pain Men: Appendicitis, cholecystitis, diverticulosis, ischemic bowel, pancreatitis, hepatitis, UTI, gastroenteritis, AAA, incarcerated hernia, bowel obstruction, constipation, inflammatory bowel, hepatitis, peptic ulcer disease, splenic infarction, perforated viscus, testicular torsion... This is not meant to be an all-inclusive list EKG interpreted by me (3pts min.). @ -EKG shows sinus rhythm ventricular rate 82. AK interval 141 QRS 100 QT 344 QTc 383 X-rays interpreted by me (1pt min.). @ -Chest x-ray shows no acute process CT interpreted by me (1pt min.). @ -None done U/S interpreted by me (1pt. min.). @ -None done What testing was considered but not performed or refused? (CT, X-rays, U/S, labs)? Why? @ -None What meds were considered but not given or refused? Why? @ -None Did you discuss the management of the patient with other professionals (pro fessionals i.e. , PA, SHUTTLE TRUCK DRIVER, lab, RT, psych nurse, high school social studies tutor, publications editor, teacher, geospatial program management officer, immigration case manager)? Give summary @ -Spoke with Margret Olivier who accepts admission Was smoking cessation discussed for >3mins.? @ -No Was critical care preformed (if so, how long)? @ -No Were there social determinants of health that impacted care today? How? (Homelessness, low income, unemployed, alcoholism, drug addiction, transportation, low edu. Level, literacy, decrease access to med. care, long term, rehab)? @ -No Was there de-escalation of care discussed even if they declined (Discuss DNR or withdrawal of care, Hospice)? DNR status @ -No What co-morbidities impacted this encounter? (DM, HTN, Smoking, COPD, CAD, Cancer, CVA, ARF, Chemo, Hep., AIDS, mental health diagnosis, sleep apnea, morbi d obesity)? @ -None Was patient admitted / discharged? Hospital course, mention meds given and route, prescriptions, significant lab abnormalities, going to OR and other pertinent info. @ -Admitted, see above for details Undiagnosed new problem with uncertain prognosis? @ -No Drug Therapy requiring intensive monitoring for toxicity (Heparin, Nitro, Insulin, Cardizem)? @ -No Were any procedures done? @ -No Diagnosis/symptom? @ -Pancreatitis Acute, or Chronic, or Acute on Chronic? @ -Acute Uncomplicated (without systemic symptoms) or Complicated (systemic symptoms)? @ -complicated Side effects of treatment? @ -No Exacerbation, Progression, or Severe Exacerbation? @ -No Poses a threat to life or bodily function? How? (Chest pain, [place], [place], pneumonia, PE, COPD, DKA, ARF, appy, cholecystitis, CVA, Diverticulitis, Homicidal, Suicidal, threat to staff... and all critical care pts) @ -Potential Disposition Clinical Impression: Pancreatitis Disposition: ADMITTED IP TO THIS HOSP Condition: Fair Time of Disposition: 23:17
[2025-02-14] MEDS: LACTATED RINGERS 1,000 ML IV SCH (23:25)
[2025-02-15] MEDS ORDERED: CALCIUM CARBONATE 500 MG CHEWABLE PO PRN (03:16)
[2025-02-15] MEDS: PANTOPRAZOLE 40 MG/10 ML VIAL IVP SCH (08:08)
[2025-02-16 02:08] VITALS: BP 131/85; PULSE 78; RESP 18; TEMP 98.7
--- NOTE | 2025-02-16 03:03 | PN ---
PROGRESS NOTE DATE OF SERVICE: 02/15/2025 CHIEF COMPLAINT: Pancreatitis. HISTORY OF PRESENT ILLNESS: This gentleman is still nauseated and still having significant amount of epigastric tenderness. 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 Bowel sounds are not heard. CHEST: Clear. IMPRESSION: Pancreatitis. PLAN: Continue with IV fluids and analgesics. MMODL / IJN: [id number] /
--- NOTE | 2025-02-16 03:03 | HP ---
HISTORY AND PHYSICAL ADMITTING SUMMARY CHIEF COMPLAINT: Epigastric pain and pancreatitis. HISTORY OF PRESENT ILLNESS: This is a readmission for this 49-year-old white male who has just in the hospital with pancreatitis. He went home and came right back in. He presented with epigastric pain and nausea and vomiting. REVIEW OF SYSTEMS: He denies hematemesis, melena, hematochezia, etc. Past medical history, family history, personal and social histories are all otherwise unremarkable, unchanged or noncontributory. PHYSICAL EXAMINATION: VITAL SIGNS: Normal. CHEST: Clear. CARDIAC: Normal. ABDOMEN: Slightly distended. He is tender over the epigastrium. There is voluntary guarding. There is no rebound or referred tenderness. Bowel sounds are not heard. EXTREMITIES: Normal. IMPRESSION: Pancreatitis. PLAN: 1. Bed rest. 2. IV fluids. 3. Analgesics. KONG / YOMI: [id number] /
--- NOTE | 2025-02-16 22:53 | DS ---
DISCHARGE SUMMARY CHIEF COMPLAINT: Epigastric pain and vomiting. HISTORY OF PRESENT ILLNESS AND PHYSICAL EXAMINATION: Details of this man's history and physical can be found in the initial workup. LABORATORY STUDIES: While he is in the hospital, he had laboratory studies, details of which can be found in the laboratory section of his chart. COURSE IN THE HOSPITAL: After admission, he was placed on bedrest, started on intravenous fluids and analgesics. His pain slowly subsided. He was doing well and was stable, and it was felt that he could be discharged on the . FINAL DIAGNOSES: 1. Pancreatitis. 2. Dehydration. 3. Chronic obstructive pulmonary disease. OPERATIONS: None. CONSULTATIONS: None. He is improved. MMODL / IJN: [id number] /
== END 2025-02-16 06:15 | disposition left against medical advice (07) ==
LOC: EC 20:17 → 4SSUR 23:16
PROVIDERS: ADMIT Family Medicine; ATTEND Family Medicine
DX: K85.90 Acute pancreatitis without necrosis or infection, unspecified (principal); E86.0 Dehydration; J44.9 Chronic obstructive pulmonary disease, unspecified; F17.210 Nicotine dependence, cigarettes, uncomplicated; Z79.899 Other long term (current) drug therapy; Z88.8 Allergy status to other drugs, medicaments and biological substances; Z91.048 Other nonmedicinal substance allergy status
CPT/HCPCS: 96376; 96361 ×2; 96375; 96374; 99285; 36415; 93005; 80053; 83690; 83735; 84132; 84484 ×2; 85025; 85610; 85730; 71046; G0378 ×3; J1171; J2470

== ENCOUNTER 2025-03-09 23:31 | Emergency (ER) | payer MEDICARE, OTHER ==
[2025-03-10 00:15] VITALS: RESP 18
[2025-03-10] MEDS: ONDANSETRON ODT 4 MG TAB PO STA (00:44)
[2025-03-10] MEDS: ACETAMINOPHEN TAB 500 MG TAB PO STA (00:44)
--- NOTE | 2025-03-10 01:17 | ED ---
General Adult HPI - General Chief complaint: Headache Stated complaint: Nausea, headache Time Seen by Provider: 03/09/25 23:48 Source: patient Mode of arrival: ambulatory Limitations: no limitations - History of Present Illness Initial comments: Patient patient is a 49-year-old gentleman with a past medical history of alcoholism, homelessness, polysubstance abuse, seizures presenting today for headache. Patient stated to triage nurse that he felt like he was going to have a seizure, does have a known history of seizures. When I asked the patient, he states he does not know what his seizure auras feel like though he does have a history of seizures. He never progressed to a full seizure. Does not currently take medications for his seizures nor does he want any. He currently endorses a moderate headache. Has had similar headaches in the past. Denies strokelike symptoms such as changes in vision, slurred speech, numbness, weakness, changes in vision, neck stiffness, fevers, chills, currently denies nausea or vomiting, is able to tolerate p.o. intake. Denies chest pain, abdominal pain, back pain, shortness of breath. Denies any head injuries recently. Headache was gradual in onset. - Related Data Home Medications Medication Instructions Recorded Confirmed Aripiprazole Lauroxil [Aristada] 882 mg IM Q28D 12/25/24 02/15/25 Allergies Allergy/AdvReac Type Severity Reaction Status Date / Time cat dander Allergy Itching Verified 02/15/25 09:17 oxcarbazepine AdvReac seizures Verified 02/15/25 09:17 [From Trileptal] paliperidone [From Invega] AdvReac delusional Verified 02/15/25 09:17 risperidone [From Risperdal] AdvReac seizures Verified 02/15/25 09:17 Review of Systems ROS Statement: Those systems with pertinent positive or pertinent negative responses have been documented in the HPI. ROS Other: All systems not noted in ROS Statement are negative. Past Medical History Past Medical History: GERD/Reflux, Musculoskeletal Disorder, Seizure Disorder Additional Past Medical History / Comment(s): scoliosis, herpes, hiatal hernia, migraines, Hepatitis C History of Any Multi-Drug Resistant Organisms: None Reported Past Surgical History: No Surgical Hx Reported Additional Past Surgical History / Comment(s): EGD Past Anesthesia/Blood Transfusion Reactions: No Reported Reaction Past Psychological History: Anxiety, Bipolar, Depression, Schizoaffective Disorder Smoking Status: Current every day smoker Past Alcohol Use History: None Reported Past Drug Use History: Cocaine, Heroin, IV Drug Use, Marijuana, Methamphetamine, Opiates, Prescription Drug Abuse - Past Family History Mother History Unknown: Yes Family Medical History: No Reported History Additional Family Medical History / Comment(s): from suicide Father History Unknown: Yes Family Medical History: No Reported History Additional Family Medical History / Comment(s): Reports that he is currently in the stages of dying- but wont clarify further. Inititally the patient stated his father was . General Exam - General Exam Comments Initial Comments: PE: CONSTITUTIONAL: No apparent distress, well appearing SKIN: Warm, dry, no jaundice, hives or petechiae EYES: Pupils are equally round, extraocular movements intact without nystagmus, clear conjunctiva, non-icteric sclera HENT: Normocephalic, atraumatic, moist mucus membranes, oropharynx clear without exudates NECK: , Full range of motion, normal appearance PULMONARY: Clear to auscultation without wheezes, rhonchi, or rales, normal excursion, no accessory muscle use and no stridor CARDIOVASCULAR: Regular rate, rhythm, normal S1 and S2. No appreciated murmurs, rubs or gallops. Strong radial pulses with intact distal perfusion. No lower extremity edema GASTROINTESTINAL: Soft, active bowel sounds throughout, non-tender, non- distended, no palpable masses, no rebound or guarding. No hepatosplenomegaly GENITOURINARY: MUSCULOSKELETAL: Extremities have no gross deformity, no edema, redness, or swelling. NEUROLOGIC:_a/o x 3, GCS 15, normal mentation and speech. Moves all extremities x 4 without motor or sensory deficit, cranial nerves: II (visual deluna without defects), III, IV and (extraocular movements are intact, pupils are equal with normal reaction to light), V (intact facial sensation and jaw opening), VII (no facial droop), IX and X (normal palate movement, midline uvula, normal voice), XI (symmetrical shoulder shrug), XII (midline tongue protrusion). Motor strength is 5/5 in all extremities. No abnormal movements. Normal muscle tone. Sensation to light touch is intact bilaterally. Normal [id number] testing PSYCHIATRIC:_normal mood and affect, thought process is clear and linear Limitations: no limitations Course Vital Signs 03/10/25 03/10/25 00:12 02:19 Temperature 98.0 F 98.1 F Pulse Rate 88 81 Respiratory 18 18 Rate Blood Pressure 134/92 129/90 O2 Sat by Pulse 100 100 Oximetry Medical Decision Making - Medical Decision Making Was pt. sent in by a medical professional or institution (, PA, PASTRY SUPERVISOR, urgent care, hospital, or care home...) When possible be specific @ -No Did you speak to anyone other than the patient for history (EMS, parent, family, police, friend...)? What history was obtained from this source @ -No Did you review nursing and triage notes (agree or disagree)? Why? @ -I reviewed nursing and triage notes-no patient had endorsed a seizure aura, nausea and vomiting to chief deputy sheriff he denies this to me Were old charts reviewed (outside hosp., previous admission, EMS record, old EKG, old radiological studies, urgent care reports/EKG's, care home records)? Report findings @ -Medical records reviewed-patient is here frequently for multiple complaints, Patient was recently discharged on 02/16/2025, on review of discharge summary, states had been admitted that time for pancreatitis and dehydration Differential Diagnosis (chest pain, altered mental status, abdominal pain women, abdominal pain men, vaginal bleeding, weakness, fever, dyspnea, syncope, headache, dizziness, GI bleed, back pain, seizure, CVA, palpatations, mental health, musculoskeletal)? @Differential Headache: Migraine, tension, cluster, carbon monoxide, central venous thrombosis, temporal arteritis, acute closure glaucoma, intercranial hemorrhage, mastoiditis, sinusitis, head injury, this is not meant to be an all-inclusive list. Denies head injury EKG interpreted by me (3pts min.). @ -As above X-rays interpreted by me (1pt min.). @ -None done CT interpreted by me (1pt min.). @ -None done U/S interpreted by me (1pt. min.). @ -None done What testing was considered but not performed or refused? (CT, X-rays, U/S, labs)? Why? CT brain was considered however ultimately decided against as this is not for septic of patient's life, no focal neurodeficits or neurologic complaints, he is at baseline What meds were considered but not given or refused? Why? @ -None Did you discuss the management of the patient with other professionals (professionals i.e. , PA, PASTRY SUPERVISOR, lab, RT, psych nurse, vp digital marketing social media and crm, associate engineer, teacher, sergeant of officers, case folder)? Give summary @ -No Was smoking cessation discussed for >3mins.? @ -No Was critical care preformed (if so, how long)? @ -No Were there social determinants of health that impacted care today? How? (Homelessness, low income, unemployed, alcoholism, drug addiction, transportation, low edu. Level, literacy, decrease access to med. care, senior living, rehab)? @ -Homelessness Was there de-escalation of care discussed even if they declined (Discuss DNR or withdrawal of care, Hospice)? @ -No What co-morbidities impacted this encounter? (DM, HTN, Smoking, COPD, CAD, Cancer, CVA, ARF, Chemo, Hep., AIDS, mental health diagnosis, sleep apnea, morbid obesity)? @ -None Was patient admitted / discharged? Hospital course, mention meds given and route, prescriptions, significant lab abnormalities, going to OR and other pertinent info. Discharged- 49-year-old gentleman history of homelessness, seizures, polysubstance abuse, presenting today for headache. My assessment he is sleeping comfortably, states that he is not "a meditative state". He has no focal neurologic deficits. Though he endorsed nausea and vomiting earlier currently denies this and is actively tolerating p.o. intake. Discussed with patient administering Tylenol, ibuprofen and Zofran and plan for discharge. Patient agreeable plan of care. We discussed signs symptoms warranting monitoring for emergent return to the ER such as strokelike symptoms, severe headache or failure of headache to improve over the next 48 hours. Patient verbalized understanding and was discharged in good condition. In my medical judgment there is currently no evidence of an immediate life- threatening or surgical condition. Discharge is therefore indicated at this time. Discharge treatment instructions, follow up instructions, and appropriate emergency department return precautions were discussed with the patient and/or medical decision maker. Patient and/or medical decision maker expressed understanding of and agreed with the treatment plan, follow up instructions, and emergency department return precaution. All patient's and/or medical decision maker's questions were answered. The patient was instructed to return to the ED for any changes in symptoms, persistent symptoms, inability to obtain proper follow-up or for any further concerns. Patient received verbal and written instructions for this condition. Undiagnosed new problem with uncertain prognosis? @ -No Drug Therapy requiring intensive monitoring for toxicity (Heparin, Nitro, Insulin, Cardizem)? @ -No Were any procedures done? @ -No Diagnosis/symptom? Headache Acute, or Chronic, or Acute on Chronic? Acute Uncomplicated (without systemic symptoms) or Complicated (systemic symptoms)? @Uncomplicated Side effects of treatment? @ -No Exacerbation, Progression, or Severe Exacerbation? @ -No Poses a threat to life or bodily function? How? (Chest pain, [place], [place], pneumonia, PE, COPD, DKA, ARF, appy, cholecystitis, CVA, Diverticulitis, Homicidal, Suicidal, threat to staff... and all critical care pts) @ -No Disposition Clinical Impression: Headache Disposition: HOME SELF-CARE Condition: Good Instructions (If sedation given, give patient instructions): Acute Headache (ED) Additional Instructions: Every disease is a spectrum and a small chance still exists that a serious condition could develop, for this reason, please monitor yourself closely for new, changing or worsening symptoms, symptoms that persist beyond 48 hours, strokelike symptoms such as numbness, weakness, slurred speech, changes in v ision, sudden worsening of headache or worst headache that you have ever had neck stiffness fever, inability to tolerate/keep down fluids or your medications, inability to follow up with outpatient providers as instructed and should you experience these symptoms or should you have any further concerns for your wellbeing please return to the ED or call 911 immediately. PLEASE call your primary care physician as soon as possible to arrange / discuss plan for followup appointment. Appointment in the next 1-3 days is strongly encouraged if possible. PLEASE let us know here before you leave if there is anything further we can do to be of any assistance. Take care and feel Better! Is patient prescribed a controlled substance at d/c from ED?: No Referrals: Duke Archibald MD [Primary Care Provider] - 1-2 days
[2025-03-10] MEDS: KETOROLAC 15 MG/ML 1 ML VIAL IM STA (01:42)
[2025-03-10 02:22] VITALS: BP 129/90; PULSE 81; TEMP 98.1
== END 2025-03-10 02:25 | disposition home or self-care (01) ==
LOC: EC 23:31
DX: R51.9 Headache, unspecified (principal); F17.200 Nicotine dependence, unspecified, uncomplicated; Z88.8 Allergy status to other drugs, medicaments and biological substances
CPT/HCPCS: 99284; 96372; J1885

== ENCOUNTER 2025-03-11 11:28 | Inpatient (IN) | payer MEDICARE, MEDICAID ==
--- NOTE | 2025-03-11 15:42 | ED ---
Psych HPI - General Chief Complaint: Psychiatric Symptoms Stated Complaint: Petition Time Seen by Provider: 03/11/25 11:33 Source: patient, police, RN notes reviewed Mode of arrival: ambulatory Limitations: no limitations - History of Present Illness Initial Comments: 49-year-old male presents emergency department with police from [facility] for psychiatric valuation. Patient reported that he is going to rehab drug abuse. Patient has been having worsening hallucinations delusional thoughts psychiatric issues. Patient denies being suicidal - Related Data Home Medications Medication Instructions Recorded Confirmed Aripiprazole Lauroxil [Aristada] 882 mg IM Q28D 12/25/24 03/14/25 Allergies Allergy/AdvReac Type Severity Reaction Status Date / Time cat dander Allergy Itching Verified 03/11/25 17:33 oxcarbazepine AdvReac seizures Verified 03/11/25 17:33 [From Trileptal] paliperidone [From Invega] AdvReac delusional Verified 03/11/25 17:33 risperidone [From Risperdal] AdvReac seizures Verified 03/11/25 17:33 Review of Systems ROS Statement: Those systems with pertinent positive or pertinent negative responses have been documented in the HPI. ROS Other: All systems not noted in ROS Statement are negative. Past Medical History Past Medical History: GERD/Reflux, Musculoskeletal Disorder, Seizure Disorder Additional Past Medical History / Comment(s): scoliosis, herpes, hiatal hernia, migraines, Hepatitis C History of Any Multi-Drug Resistant Organisms: None Reported Past Surgical History: No Surgical Hx Reported Additional Past Surgical History / Comment(s): EGD Past Anesthesia/Blood Transfusion Reactions: No Reported Reaction Past Psychological History: Anxiety, Bipolar, Depression, Schizoaffective Disorder Smoking Status: Current every day smoker Past Alcohol Use History: None Reported Past Drug Use History: Cocaine, Heroin, IV Drug Use, Marijuana, Methamphetamine, Opiates, Prescription Drug Abuse - Past Family History Mother History Unknown: Yes Family Medical History: No Reported History Additional Family Medical History / Comment(s): from suicide Father History Unknown: Yes Family Medical History: No Reported History Additional Family Medical History / Comment(s): Reports that he is currently in the stages of dying- but wont clarify further. Inititally the patient stated his father was . General Exam Limitations: no limitations General appearance: alert, in no apparent distress Head exam: Present: atraumatic, normocephalic, normal inspection Eye exam: Present: normal appearance, PERRL, EOMI. Absent: scleral icterus, conjunctival injection, periorbital swelling ENT exam: Present: normal exam, normal oropharynx, mucous membranes moist Neck exam: Present: normal inspection, full ROM. Absent: tenderness, meningismus, lymphadenopathy Respiratory exam: Present: normal lung sounds bilaterally. Absent: respiratory distress, wheezes, rales, rhonchi, stridor Cardiovascular Exam: Present: normal rhythm, tachycardia, normal heart sounds. Absent: systolic murmur, diastolic murmur, rubs, gallop, clicks Neurological exam: Present: alert, oriented X3 Psychiatric exam: Present: manic Course Vital Signs 03/11/25 03/11/25 11:31 20:07 Temperature 98 F Pulse Rate 110 H 50 L Respiratory 20 17 Rate Blood Pressure 114/84 127/92 O2 Sat by Pulse 99 96 Oximetry Medical Decision Making - Medical Decision Making Was pt. sent in by a medical professional or institution (, PA, DINKEY OPERATOR SLATE, urgent care, hospital, or half-way...) When possible be specific @ -[[facility] with police Did you speak to anyone other than the patient for history (EMS, parent, family, police, friend...)? What history was obtained from this source @ -No Did you review nursing and triage notes (agree or disagree)? Why? @ -I reviewed and agree with nursing and triage notes Were old charts reviewed (outside hosp., previous admission, EMS record, old EKG, old radiological studies, urgent care reports/EKG's, half-way records)? Report findings @ -No old charts were reviewed Differential Diagnosis (chest pain, altered mental status, abdominal pain women, abdominal pain men, vaginal bleeding, weakness, fever, dyspnea, syncope, headache, dizziness, GI bleed, back pain, seizure, CVA, palpatations, mental health, musculoskeletal)? @ -Differential Mental Health Depression, anxiety, bipolar, psychosis, schizophrenia, borderline personality, situational depression, adjustment disorder, behavioral disorder, brain tumor, malingering, substance abuse, encephalopathy, medication reaction, dementia, hypothyroidism, degenerative neurologic disorder, lupus.... This is not meant to be all-inclusive list EKG interpreted by me (3pts min.). @ -As above X-rays interpreted by me (1pt min.). @ -None done CT interpreted by me (1pt min.). @ -None done U/S interpreted by me (1pt. min.). @ -None done What testing was considered but not performed or refused? (CT, X-rays, U/S, labs)? Why? @ -None What meds were considered but not given or refused? Why? @ -None Did you discuss the management of the patient with other professionals (professionals i.e. , PA, DINKEY OPERATOR SLATE, lab, RT, psych nurse, delinquency prevention social worker, willow analyst, teacher, customs officer, case operator)? Give summary @ -EPS eval patient admitted inpatient treatment Was smoking cessation discussed for >3mins.? @ -No Was critical care preformed (if so, how long)? @ -No Were there social determinants of health that impacted care today? How? (Homelessness, low income, unemployed, alcoholism, drug addiction, transportation, low edu. Level, literacy, decrease access to med. care, retirement, rehab)? @ -No Was there de-escalation of care discussed even if they declined (Discuss DNR or withdrawal of care, Hospice)? DNR status @ -No What co-morbidities impacted this encounter? (DM, HTN, Smoking, COPD, CAD, Can cer, CVA, ARF, Chemo, Hep., AIDS, mental health diagnosis, sleep apnea, morbid obesity)? @ -None Was patient admitted / discharged? Hospital course, mention meds given and route, prescriptions, significant lab abnormalities, going to OR and other pertinent info. @ -[Admitted to 3 W. Undiagnosed new problem with uncertain prognosis? @ -No Drug Therapy requiring intensive monitoring for toxicity (Heparin, Nitro, Insulin, Cardizem)? @ -No Were any procedures done? @ -No Diagnosis/symptom? @ -Depression, bipolar disorder Acute, or Chronic, or Acute on Chronic? @ -Acute Uncomplicated (without systemic symptoms) or Complicated (systemic symptoms)? @ -Complicated Side effects of treatment? @ -No Exacerbation, Progression, or Severe Exacerbation? @ -No Poses a threat to life or bodily function? How? (Chest pain, USA, MS, pneumonia, PE, COPD, DKA, ARF, appy, cholecystitis, CVA, Diverticulitis, Homicidal, Suicidal, threat to staff... and all critical care pts) @ -No - Lab Data Result diagrams: 03/14/25 09:41 03/14/25 09:41 Lab Results 03/11/25 03/11/25 Range/Units 15:30 17:36 Urine Opiates Screen Not Detected (NotDetected) Ur Oxycodone Screen Not Detected (NotDetected) Urine Methadone Screen Not Detected (NotDetected) Ur Barbiturates Screen Not Detected (NotDetected) U Tricyclic Antidepress Not Detected (NotDetected) Ur Phencyclidine Scrn Not Detected (NotDetected) Ur Amphetamines Screen Not Detected (NotDetected) U Methamphetamines Scrn Not Detected (NotDetected) U Benzodiazepines Scrn Not Detected (NotDetected) Urine Cocaine Screen Not Detected (NotDetected) U Marijuana (THC) Screen Detected H (NotDetected) SARS-CoV-2 (PCR) Not Detected (Not Detectd) Disposition Clinical Impression: Bipolar disorder, Psychosis Disposition: TRANSFER TO PSYCH HOSP/UNIT Condition: Fair Time of Disposition: 06:12
[2025-03-11 16:11] LABS: Barbiturate Screen,Urine Not Detected (NotDetected); Benzodiazepines Screen,Urine Not Detected (NotDetected); Opiate Screen,Urine Not Detected (NotDetected); Oxycodone Screen, Urine Not Detected (NotDetected); Phencyclidine Screen,Urine Not Detected (NotDetected); Tricyclic Antidepressant,Urine Not Detected (NotDetected); Urn Cannabinoid Scrn Detected (NotDetected)
[2025-03-11] MEDS ORDERED: MAGNESIUM HYDROXIDE 2,400 MG/30 ML CUP PO PRN (19:41)
[2025-03-11] MEDS ORDERED: IBUPROFEN 600 MG TAB PO PRN (19:41)
[2025-03-11] MEDS ORDERED: LORazepam 1 MG/0.5 ML VIAL IM PRN (19:41)
[2025-03-12] MEDS: NICOTINE 14MG/24HR PATCH TRANSDERM SCH (08:11)
[2025-03-12 10:37] LABS: Glucose,Whole Blood 101 mg/dL (70-110)
[2025-03-12 12:31] LABS: Basophils # (A) 0.06 10*3/uL (0.00-0.10); Basophils % (A) 0.8 %; Eosinophils # (A) 0.09 10*3/uL (0.04-0.35); Eosinophils % (A) 1.3 %; HCT 45.3 % (39.6-50.0); HGB 15.2 g/dL (13.0-17.0); Lymphocytes # (A) 1.93 10*3/uL (0.90-5.00); Lymphocytes % (A) 27.2 %; MCH 29.9 pg (27.0-32.0); MCHC 33.6 g/dL (32.0-37.0); MCV 89.2 fL (80.0-97.0); Monocytes # (A) 0.64 10*3/uL (0.20-1.00); Monocytes % (A) 9.0 %; Neutrophils # (A) 4.37 10*3/uL (1.80-7.70); Neutrophils % (A) 61.6 %; Platelet Count 276 10*3/uL (140-440); RBC 5.08 10*6/uL (4.40-5.60); RDW 13.8 % (11.5-14.5); WBC 7.10 10*3/uL (4.50-10.00)
[2025-03-12 12:50] LABS: ALT 133 U/L (4-49); AST 63 U/L (17-59); African American GFR (CKD) >90 (>60 ml/min/1.73 sqM); Albumin 4.2 g/dL (3.5-5.0); Alkaline Phosphatase 71 U/L (38-126); Anion Gap 14 mmol/L; Blood Urea Nitrogen 15 mg/dL (9-20); Calcium 10.2 mg/dL (8.4-10.2); Carbon Dioxide 22 mmol/L (22-30); Chloride 101 mmol/L (98-107); Glucose 96 mg/dL (74-99); Non-African American GFR(CKD) >90 (>60 ml/min/1.73 sqM); Potassium 4.2 mmol/L (3.5-5.1); Sodium 137 mmol/L (137-145); Total Protein 7.0 g/dL (6.3-8.2)
[2025-03-12] MEDS: LORazepam 1 MG TAB PO PRN (13:47)
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
[2025-03-12 19:13] LABS: Cholesterol 128.00 mg/dL (0.00-200.00); HDL Cholesterol 40.80 mg/dL (40.00-60.00); LDL Cholesterol,Calculated 53.8 mg/dL (0.0-131.0); Triglycerides 167.00 mg/dL (0.00-149.00); VLDL Calculation 33.40 mg/dL (5.00-40.00)
--- NOTE | 2025-03-13 01:32 | CONS ---
CONSULTATION CHIEF COMPLAINT: Major depression, schizoaffective disorder, and history of pancreatitis. HISTORY OF PRESENT ILLNESS: This gentleman presented to the emergency room with depression and aggravation of his psychiatric difficulties. He was recently in the hospital for pancreatitis. REVIEW OF SYSTEMS: He denies chest pain, abdominal pain, nausea, vomiting, etc. Past medical history, family history and personal and social histories reveal he is not allergic to any medication. He takes Aristada, and omeprazole. He does smoke. PHYSICAL EXAMINATION: VITAL SIGNS: Normal. HEAD, EARS, EYES, NOSE, AND MOUTH: Normal. CHEST: Clear. CARDIAC: Normal. ABDOMEN: Soft, nontender. EXTREMITIES: Normal. IMPRESSION: 1. Major depression. 2. Schizoaffective disorder. 3. History of pancreatitis. 4. Previous hospitalizations for attempted suicide. RECOMMENDATIONS: None. MMODL / IJN: [id number] /
[2025-03-13] MEDS: ACETAMINOPHEN TAB 325 MG TAB PO PRN (11:13)
[2025-03-13] MEDS: MAG HYDROX/AL HYDROX/SIMETH 355 ML BOTTLE PO PRN (14:12)
[2025-03-13] MEDS: PANTOPRAZOLE 40 MG TABLET PO SCH (15:30)
[2025-03-13] MEDS: HALOPERIDOL LACTATE 5 MG/ML 1 ML VIAL IM PRN (19:58)
[2025-03-13] MEDS ORDERED: ONDANSETRON ODT 4 MG TAB PO PRN (21:22)
[2025-03-14 08:03] VITALS: BP 96/68; PULSE 109; RESP 18; TEMP 97.9
--- NOTE | 2025-03-14 09:48 | XR ---
EXAMINATION TYPE: XR abdomen complete w decub DATE OF EXAM: 03/14/2025 COMPARISON: 03/09/2016 CLINICAL INDICATION: Male, 49 years old with history of acute abdominal pain; TECHNIQUE: Supine, upright, and left side down lateral decubitus views of the abdomen are obtained. FINDINGS: There is no evidence for pneumoperitoneum. The visualized lung bases are clear. The bowel gas pattern is unremarkable as there is air and stool scattered throughout nondilated small and large bowel. There are no differential air-fluid levels. No mass effects are seen. No unusual calcifications. The osseous structures are intact. IMPRESSION: Unremarkable study [facility] Santiago Rodriguez, , 03/14/2025 9:45 AM
[2025-03-14 10:09] LABS: Basophils # (A) 0.09 10*3/uL (0.00-0.10); Basophils % (A) 1.0 %; Eosinophils # (A) 0.09 10*3/uL (0.04-0.35); Eosinophils % (A) 1.0 %; HCT 46.2 % (39.6-50.0); HGB 15.6 g/dL (13.0-17.0); Lymphocytes # (A) 2.83 10*3/uL (0.90-5.00); Lymphocytes % (A) 30.7 %; MCH 29.8 pg (27.0-32.0); MCHC 33.8 g/dL (32.0-37.0); MCV 88.3 fL (80.0-97.0); Monocytes # (A) 0.76 10*3/uL (0.20-1.00); Monocytes % (A) 8.2 %; Neutrophils # (A) 5.44 10*3/uL (1.80-7.70); Neutrophils % (A) 58.9 %; Platelet Count 302 10*3/uL (140-440); RBC 5.23 10*6/uL (4.40-5.60); RDW 14.0 % (11.5-14.5); WBC 9.23 10*3/uL (4.50-10.00)
[2025-03-14 10:30] LABS: ALT 111 U/L (4-49); AST 53 U/L (17-59); African American GFR (CKD) >90 (>60 ml/min/1.73 sqM); Albumin 4.4 g/dL (3.5-5.0); Alkaline Phosphatase 64 U/L (38-126); Anion Gap 10 mmol/L; Blood Urea Nitrogen 19 mg/dL (9-20); Calcium 10.1 mg/dL (8.4-10.2); Carbon Dioxide 29 mmol/L (22-30); Chloride 99 mmol/L (98-107); Glucose 115 mg/dL (74-99); Lipase 553 U/L (23-300); Non-African American GFR(CKD) 87 (>60 ml/min/1.73 sqM); Potassium 4.5 mmol/L (3.5-5.1); Sodium 138 mmol/L (137-145); Total Protein 7.2 g/dL (6.3-8.2)
--- NOTE | 2025-03-14 17:22 | P.PN ---
Progress Note - Text Progress Note Date: 03/13/25 Interval history: Patient was seen in his room where he is laying in bed completely covered in b lankets. He engages in assessment with encouragement. He complained of chest/abdominal pain earlier today to nurses. An EKG, serial tropnonins and Protonix were ordered earlier today due to complaining of upset stomach and states it is helping a bit. At this time patient denies any suicidal or homicidal ideations intent or plan. Denies any auditory or visual hallucinations. Patient denies any side effects from the medications and has been compliant with meds. Later in the evening, patient complained of stomach pain and nausea/vomiting to nurses. Nurses paged medial doctor and are awaiting response for further orders. Patient was offered Haldol 5 mg po/IM as an antiemetic to help with nausea/vomiting while we await further orders from the medical doctor. Mental status exam: General Appearance: Patient appears to be stated age, tall slender male, fair hygiene Behavior: No agitated behavior. Patient is directable but becomes agitated later when abdominal pain worsens. Speech: Patient's speech is loud, fluent and non-pressured. Mood/Affect: Mood is irritable, affect is congruent and constricted. Suicidality/Homicidality: Patient denies having any suicidal or homicidal ideation intent or plan. Perceptions: Patient denies any auditory or visual hallucinations. Though content/process: There is no evidence of any delusional thought content and thought process is linear and goal-directed. Memory and concentration: AOX3, grossly intact for the purposes of this session Judgment and insight: improving mildly Assessment/Plan: Continue with current diagnosis. Patient continues to meet criteria for inpatient psychiatric admission for symptom stabilization and safety. Patient will be maintained on current psychotropic medication regimen. Started Protonix for GERD. EKG and serial troponins pending to rule out cardiac event. Nurses have paged the medical doctor and are awaiting a response for further orders regarding abdominal pain. Monitor for medication compliance and for any psychotropic medication side effects. Will continue to monitor ongoing response to treatment. Encouraged participation in milieu.
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
== END 2025-03-14 11:51 | disposition short-term general hospital (02) | DRG 885 ==
LOC: EC 11:28 → 3MHU 19:34
PROVIDERS: ADMIT Psychiatry & Neurology Psychiatry; ATTEND Psychiatry & Neurology Psychiatry
DX: F25.0 Schizoaffective disorder, bipolar type (principal); R45.851 Suicidal ideations; G40.909 Epilepsy, unspecified, not intractable, without status epilepticus; Z59.00 Homelessness unspecified; F17.200 Nicotine dependence, unspecified, uncomplicated; F19.90 Other psychoactive substance use, unspecified, uncomplicated; K21.9 Gastro-esophageal reflux disease without esophagitis; M41.9 Scoliosis, unspecified; Z56.0 Unemployment, unspecified; Z79.899 Other long term (current) drug therapy; Z11.52 Encounter for screening for COVID-19
CPT/HCPCS: 74021; 80053; 80061; 80306; 82075; 83036; 83690; 84439; 84443; 84484; 85025; 87635; 99285

== ENCOUNTER 2025-03-14 11:20 | Inpatient (IN) | payer MEDICAID, MEDICARE ==
[2025-03-14] MEDS: LACTATED RINGERS 1,000 ML IV ONE (14:57)
[2025-03-14] MEDS: HYDROmorphone 1 MG/ML 1 ML SYRINGE IVP PRN (16:20)
[2025-03-14] MEDS: LACTATED RINGERS 1,000 ML IV SCH (16:22)
[2025-03-15] MEDS: ONDANSETRON 4 MG/2 ML VIAL IVP PRN (09:30)
[2025-03-15 09:57] LABS: Basophils # (A) 0.07 10*3/uL (0.00-0.10); Basophils % (A) 0.9 %; Eosinophils # (A) 0.16 10*3/uL (0.04-0.35); Eosinophils % (A) 2.0 %; HCT 42.4 % (39.6-50.0); HGB 14.2 g/dL (13.0-17.0); Lymphocytes # (A) 1.87 10*3/uL (0.90-5.00); Lymphocytes % (A) 23.4 %; MCH 30.0 pg (27.0-32.0); MCHC 33.5 g/dL (32.0-37.0); MCV 89.5 fL (80.0-97.0); Monocytes # (A) 0.53 10*3/uL (0.20-1.00); Monocytes % (A) 6.6 %; Neutrophils # (A) 5.35 10*3/uL (1.80-7.70); Neutrophils % (A) 67.0 %; Platelet Count 262 10*3/uL (140-440); RBC 4.74 10*6/uL (4.40-5.60); RDW 14.0 % (11.5-14.5); WBC 7.99 10*3/uL (4.50-10.00)
[2025-03-15 10:22] LABS: ALT 92 U/L (4-49); AST 43 U/L (17-59); African American GFR (CKD) >90 (>60 ml/min/1.73 sqM); Albumin 3.6 g/dL (3.5-5.0); Albumin/Globulin Ratio 1.4; Alkaline Phosphatase 58 U/L (38-126); Anion Gap 5 mmol/L; Blood Urea Nitrogen 13 mg/dL (9-20); Calcium 9.5 mg/dL (8.4-10.2); Carbon Dioxide 29 mmol/L (22-30); Chloride 104 mmol/L (98-107); Globulin 2.5 g/dL; Glucose 89 mg/dL (74-99); Non-African American GFR(CKD) >90 (>60 ml/min/1.73 sqM); Potassium 4.8 mmol/L (3.5-5.1); Sodium 138 mmol/L (137-145); Total Protein 6.1 g/dL (6.3-8.2)
[2025-03-15] MEDS: NICOTINE 21MG/24HR PATCH TRANSDERM SCH (10:55)
--- NOTE | 2025-03-15 15:26 | P.HP ---
Psychiatric H&P - . H&P Date: 03/15/25 History & Physical: Allergies Allergy/AdvReac Type Severity Reaction Status Date / Time cat dander Allergy Itching Verified 03/11/25 17:33 oxcarbazepine AdvReac seizures Verified 03/11/25 17:33 From Trileptal paliperidone from Invega AdvReac delusional Verified 03/11/25 17:33 risperidone from Risperdal AdvReac seizures Verified 03/11/25 17:33 Vital Signs Temp 97.7 F 03/15/25 14:00 Pulse 77 03/15/25 14:00 Resp 18 03/15/25 14:00 BP 133/90 03/15/25 14:00 Pulse Ox 99 03/15/25 14:00 FiO2 Intake & Output 03/14/25 03/15/25 03/15/25 18:59 06:59 18:59 Weight 56.019 kg Other: Voiding Method Toilet # Voids 1 7 Laboratory Last Values WBC 7.99 10*3/uL (4.50-10.00) 03/15/25 07: RBC 4.74 10*6/uL (4.40-5.60) 03/15/25 07:25 Hgb 14.2 g/dL (13.0-17.0) 03/15/25 07: Hct 42.4 % (39.6-50.0) 03/15/25 07: MCV 89.5 fL (80.0-97.0) 03/15/25 07: MCH 30.0 pg (27.0-32.0) 03/15/25 07: MCHC 33.5 g/dL (32.0-37.0) 03/15/25 07: RDW 14.0 % (11.5-14.5) 03/15/25: Plt Count 262 10*3/uL (140-440) 03/15/25 07: MPV 9.5 fL (9.5-12.2) 03/15/25 07: Neutrophils % 67.0 % 03/15/25 07:25 Lymphocytes % 23.4 % 03/15/25 07:25 Monocytes % 6.6 % 03/15/25 07:25 Eosinophils % 2.0 % 03/15/25 07:25 Basophils % 0.9 % 03/15/25 07:25 Immature Gran # 0.01 10*3/uL (0.00-0.04) 03/15/25 07: Neutrophils # 5.35 10*3/uL (1.80-7.70) 03/15/25 07:25 Lymphocytes # 1.87 10*3/uL (0.90-5.00) 03/15/25 07:25 Monocytes # 0.53 10*3/uL (0.20-1.00) 03/15/25 07:25 Eosinophils # 0.16 10*3/uL (0.04-0.35) 03/15/25 07: Basophils # 0.07 10*3/uL (0.00-0.10) 03/15/25 07:25 Sodium 138 mmol/L (137-145) 03/15/25 07:25 Potassium 4.8 mmol/L (3.5-5.1) 03/15/25 07:25 Chloride 104 mmol/L (98-107) 03/15/25 07:25 Carbon Dioxide 29 mmol/L (22-30) 03/15/25 07:25 Anion Gap 5 mmol/L 03/15/25 07:25 BUN 13 mg/dL (9-20) 03/15/25 07:25 Creatinine 0.76 mg/dL (0.66-1.25) 03/15/25 07:25 Est GFR (CKD-EPI)AfAm >90 (>60 ml/min/1.73 sqM) 03/15/25 07:25 Est GFR (CKD-EPI)NonAf >90 (>60 ml/min/1.73 sqM) 03/15/25 07:25 Glucose 89 mg/dL (74-99) 03/15/25 07:25 Calcium 9.5 mg/dL (8.4-10.2) 03/15/25 07:25 Total Bilirubin 0.5 mg/dL (0.2-1.3) 03/15/25 07:25 AST 43 U/L (17-59) 03/15/25 07:25 ALT 92 U/L (4-49) H 03/15/25 07:25 Alkaline Phosphatase 58 U/L (38-126) 03/15/25 07:25 Total Protein 6.1 g/dL (6.3-8.2) L 03/15/25 07:25 Albumin 3.6 g/dL (3.5-5.0) 03/15/25 07:25 Globulin 2.5 g/dL 03/15/25 07:25 Albumin/Globulin Ratio 1.4 03/15/25 07:25 Lipase 392 U/L (23-300) H 03/15/25 07:25 03/15/25 15:17 IDENTIFYING DATA: This patient is a 49-year-old male with a public guardian, homeless REASON FOR REFERRAL: Psychiatry was consulted for MHU patient HISTORY OF PRESENT ILLNESS: The patient presented to the hospital originally on the MHU from 03/12-03/14 with psychosis in the context of ongoing hallucinogen use including psilocybin and LSD. Patient does have an intake appointment scheduled for rehab at [facility] this Saturday and patient was encouraged to make this appointment as his underlying psychosis is directly related to his ongoing substance use. Patient was transferred to the medical floor yesterday with emesis with an elevated lipase at 553. Abdominal x-ray was negative. Patient is currently on a long-acting injectable that is due at the end of the month. Patient denies any alcohol use however he feels as though his "secret plants" could be contributing to his ongoing abdominal pain with nausea and vomiting. Again patient was discouraged from using these plants however patient did not appear receptive to this advice. He otherwise appear close to baseline, at this time patient denies any suicidal or homicidal ideations, intent or plan. Patient denies any visual hallucinations and denies any paranoia or delusions. Patients admits to using hallucinogens, morphine. He reports baseline, chronic auditory hallucinations. He reports feeling better, has been able to keep his food down, drinking fluids. PAST PSYCHIATRIC HISTORY: Patient has a history of schizoaffective disorder, bipolar type, polysubstance use disorder. Patient is currently on Abilify Aristada 882 mg IM every 4 weeks next due on 03/30/2025. Patient has had several inpatient hospitalizations most recent at this facility on 03/12-03/14. Patient follows with ACT team through [facility]. Patient denies any history of suicide attempts in the past. PAST MEDICAL HISTORY: Keratitis. ALLERGIES: as per EMR. CHEMICAL DEPENDENCY HISTORY: as per HPI. FAMILY PSYCHIATRIC/SUBSTANCE USE HISTORY: Patient's mother reportedly completed suicide SOCIAL HISTORY: Patient is homeless, has a public guardian and is unemployed. MENTAL STATUS EXAM: General Appearance: Patient appears to be stated age is alert, pleasant, and cooperative. Patient appears to have fair hygiene and grooming wearing hospital gown with fair eye contact. Behavior: Patient is calmly lying in bed without any agitated behavior. Speech: Patient's speech is fluent and nonpressured. Mood/Affect: Patient reports their mood is "over static", affect is congruent Suicidality/Homicidality: Patient denies having any suicidal or homicidal ideation intent or plan. Perceptions: Patient denies any visual hallucinations however he does report chronic auditory hallucinations, baseline Though content/process: There is no evidence of any delusional thought content and thought process is linear and goal-directed. Memory and concentration: AOX3, grossly intact for the purposes of this session. Can spell "WORLD" backwards Judgment and insight: Poor IMPRESSIONS: Schizoaffective disorder, bipolar type Polysubstance use disorder PLAN: -At this time patient DOES NOT meet criteria for inpatient psychiatric admission. -Would recommend the following medication changes/additions: Continue Abilify Aristada 882 mg IM every 4 weeks, next due on 03/30/2025. Patient does have an upcoming appointment set for [facility] this Saturday and was encouraged to attend given his ongoing day with several substances that are contributing to previous worsening psychosis that appears at baseline at this time. Patient otherwise follows with ACT team through [facility] -Can discontinue 1:1 sitter at this time as patient is not currently an imminent threat to themselves -[employer] spoke with patient about substance abuse and the harmful effects on medical and mental health, patient verbally understood and agreed. -Communicated plan to patient's nurse -Psychiatry will sign off at this time -Please contact with any questions.
[2025-03-16 07:35] VITALS: BP 127/88; PULSE 72; RESP 18; TEMP 97.6
== END 2025-03-16 13:33 | DRG 885 ==
LOC: 4SSUR 11:24
PROVIDERS: ADMIT Family Medicine; ATTEND Family Medicine
DX: F25.0 Schizoaffective disorder, bipolar type (principal); Z59.00 Homelessness unspecified; F16.10 Hallucinogen abuse, uncomplicated; Z79.899 Other long term (current) drug therapy
CPT/HCPCS: 80053; 83690; 85025